=== PATIENT | male | born 1945 | race Caucasian/White ===

== ENCOUNTER 2017-06-21 06:31 | Observation (INO) | payer OTHER ==
[~2017-06-21] VITALS: Ht 172.7 cm; Wt 87.9 kg
[~2017-06-21 06:31] MED LIST: ASCO10003 PO; ASPI81TA28 PO; CHOL100010 PO; GEMF600T3 PO; GLC500 PO; LISI-461 PO; METO50TA16 PO; OMEG10007 PO; PRAV20TA PO
[2017-06-21 07:17] VITALS: BP 143/58; PULSE 58; TEMP 36.8; O2SAT 98; BMI 29.0
[2017-06-21] MEDS ORDERED: CLOTCRE33 TOP (07:33)
[2017-06-21] MEDS ORDERED: EPP3/2 IM (07:33)
[2017-06-21] MEDS ORDERED: TRMCR130WC (07:33)
[2017-06-21] MEDS ORDERED: CHOL1TAB12 PO (07:33)
[2017-06-21] MEDS ORDERED: NTRGSL/4 UT (07:33)
[2017-06-21] MEDS ORDERED: CYAN10005 PO (07:33)
[2017-06-21] MEDS ORDERED: HEPARIN SOD (PORCINE) 1000 UNIT/ML 10 ML VIAL ONE (07:40)
[2017-06-21] MEDS ORDERED: NiCARDipine HCL INJ 2.5 MG/ML 10 ML AMP ONE (07:40)
[2017-06-21] MEDS ORDERED: NITROGLYCERIN/D5W 100MCG/ML 20ML SYR ONE (07:41)
[2017-06-21] MEDS ORDERED: FENTANYL CITRATE INJ 50 MCG/1 ML 2 ML VIAL ONE (07:41)
[2017-06-21] MEDS ORDERED: MIDAZOLAM HCL 1 MG/ML 2ML VIAL ONE ×2 (07:41→09:14)
--- NOTE | 2017-06-21 08:13 | History & Physical Bridge Note ---
H&P Re-Evaluation Bridge Note: I have examined the patient, reviewed the History & Physical and in the interval since the performance of the History & Physical I have noted the following changes of clinical significance: No changes noted
--- NOTE | 2017-06-21 08:14 | Procedure Note ---
Pre-Mod Sedation Assessment General Date of Moderate Sedation: Jun 21, 2017. Vital Signs: Vital Signs Past 12 Hours Date Time Temp Pulse Resp B/P (MAP) Pulse Ox O2 Delivery O2 Flow Rate FiO2 06/21/17 07:17 36.8 58 16 143/58 98 Room Air Review Cardiovascular: regular rate, rhythm, no JVD, no murmur Abdomen: normal bowel sounds Lungs: + wheezing Pre-Sedation Airway Assessment Oral Cavity: WNL Short Thick Neck: No Hx of Sleep Apnea: No Smoking Status: Current Every Day Smoker Mallampati Classification: Class III ASA Classification: Class III Procedure Planning Contraindications-for Mod Sed: None Yes Notes The planned sedation has been discussed with the patient and consent obtained. I have identified the patient, determined the appropriateness of sedation and have assessed the patient immediately prior to the procedure. All medicine(s) and interventions are by my order.
[2017-06-21] MEDS ORDERED: EPTIFIBATIDE 0.75 MG/ML 75MG VIAL IV ONE (09:21)
[2017-06-21] MEDS ORDERED: EPTIFIBATIDE INJ 75 MG PREMIXED IV SCH (09:21)
[2017-06-21] MEDS ORDERED: EPTIFIBATIDE 2 MG/ML 10 ML VIAL IV ONE (09:21)
--- NOTE | 2017-06-21 09:44 | Cardiac Catheterization ---
Procedure Note Procedure Date Jun 21, 2017. Pre-Procedure Diagnosis Angina, Positive Stress Test AUC Score 8 Post-Procedure Diagnosis Severe CAD Procedure(s) Performed Coronary Angiography, Left Heart Cath Abrasive Grinder Dr. Robert Partnership Development Manager(s) Freddy PRINTING SERVICES COORDINATOR Estimated Blood Loss 5cc Medication(s) Fentanyl, Heparin, Nicardipine, Nitroglycerin, Versed, Lidocaine 1% Summary of Findings 80% proximal Ramus 100% proximal RCA PHOTOGRAPHER SCIENTIFIC Hemodynamics Rest Ao: 110/51/75 Final Ao: 127/52/81 LV: 109/2/8 Recommendations PCI without planned CABG Specimens None Radiation Exposure (mGy) 883 Contrast (mls) 70 Anesthesia Moderate sedation. Start 0847. End 0912. Sedation monitor: Breanna Mtz RN Procedural Complication(s) None Disposition Patient remained in laboratory tester for PCI to Ramus ACC Data Cardiac Status Clinical evaluation leading to the procedure CAD Presntation: Positive Stress Test Anginal Classification: CCS II Heart Failure: No Cardiogenic Shock w/in 24Hrs: No Cardiac Arrest w/in 24Hrs: No Imaging studies past 6 months: Yes Stress studies past 6 months: Yes Stress Testing w/SPECT MPI: Yes - Positive, Risk/Extent of Ischemia (High) Coronary Anatomy Dominant: Right Left Main (% Stenosis): Normal LAD (% Stenosis): Proximal (10%), Mid (20%), Distal (10%) D1 (% Stenosis): Ostial (20%) D2 (% Stenosis): Normal Circumflex (% Stenosis): Proximal (10%), Distal (gives rise to Left to right collateral) OM1 (% Stenosis): Proximal (10%), Mid (20%), Distal (10%) RCA (% Stenosis): Proximal (100%) R PL1 (% Stenosis): Ostial (mild luminal irregularities, (10%). Fills via left to right collaterals.) Ramus (% Stenosis): Mid (10%), Distal (10%), Proximal (80%) Diagnostic Status: Elective Closure Device Percutaneous Entry Location: Radial Closure Device: Radial Band Recommendations: PCI without planned CABG Intraprocedure Events Significant Dissection: No Perforation: No
[2017-06-21] MEDS ORDERED: CLOPIDOGREL BISULFATE 300 MG TAB PO ONE (10:11)
--- NOTE | 2017-06-21 10:19 | Procedure Note ---
Post-Mod Sedation Assessment General Date of Moderate Sedation Jun 21, 2017. Vital Signs: Vital Signs Past 12 Hours Date Time Temp Pulse Resp B/P (MAP) Pulse Ox O2 Delivery O2 Flow Rate FiO2 06/21/17 10:03 56 16 131/72 (91) 95 Room Air 06/21/17 07:17 36.8 58 16 143/58 98 Room Air Review - Discharge Criteria Vital Signs Stable: Yes Alert/Oriented/Conversant: Yes Returned to Baseline Mental St: Yes Nausea Absent/Minimal: Yes Pain/Discomfort/Absent/Minimal: Yes Normal/Baseline Respirations: Yes Active Bleeding?: No Pt Received D/C Instructions: N/A Prescriptions Given: None Specific Proced. D/C Criteria Distal Pulses Present (Cardiac: Yes Groin site assessed-Card Cath: N/A Voided Prior To Discharge: N/A Discharged Patients Adult Escort/Transportation: N/A
--- NOTE | 2017-06-21 10:34 | Cardiac Catheterization ---
Procedure Note Procedure Date Jun 21, 2017. Pre-Procedure Diagnosis Positive Stress Test, CAD AUC Score 8 for PCI Post-Procedure Diagnosis Successful PCI Procedure(s) Performed Coronary Angiography, PTCA, Drug Eluting Stent Ditch Digger Dr. Gordon Public Health Director(s) ERWIN Salinas Estimated Blood Loss 20 ml Medication(s) Clopidogrel (600 mg PO post PCI), Heparin, Integrilin, Nicardipine (intra arterial and intracoronary) Summary of Findings Clinical indications: Severe proximal ramus stenosis. Positive stress echocardiogram. Catheterization site: 6 [place] slender glide sheath right radial artery which had been inserted at time of diagnostic procedure. Equipment: A 6 [place] EBU 3.75 guide catheter, a Bowman guidewire, Duran Trek 2.5 x 8 mm balloon dilatation catheter, Medtronic Resolute [place] 3 x 12 mm drug- eluting stent. Interventional protocol: Following the administration of intravenous heparin and Integrilin with documentation of a therapeutic ACT, PTCA was performed to the proximal ramus stenosis with the Trek balloon. Two balloon inflations to maximum pressure of 8 atmospheres and maximum duration of 20 seconds. The stent was then deployed in the proximal ramus at a pressure of 9 atmospheres for duration of 45 seconds. Follow-up angiography was then performed from orthogonal projections with the guidewire in place and guidewire withdrawn. The patient was hemodynamically stable throughout the procedure. At the completion of procedure he had no cardiac, coronary, or vascular complaints. Findings: Guiding angiography revealed an 80% eccentric proximal ramus stenosis. JESSICA 3 flow in the ramus. Following PCI the residual stenosis at the stent site was 0%. No evidence of dissection, thrombus, perforation, or distal embolic event. JESSICA 3 flow in ramus post PCI. Hemostasis: Terumo TR band. Complications: None. Plan: The patient will be admitted to the telemetry unit for observation overnight. He will remain on intravenous Integrilin for 6 more hours. He was given a loading dose of oral clopidogrel post PCI. He should remain on dual antiplatelet therapy for ideally 1 year post PCI. Aspirin therapy indefinitely. Will remain on statin, beta-abida, and KISHA-inhibitor therapy. Post Integrilin CBC. Post PCI electrocardiogram. Continue follow-up in the [facility] cardiology clinic. Conclusion: Severe proximal ramus stenosis. Successful intervention to the ramus stenosis with deployment of 3 x 12 mm drug-eluting stent. Hemodynamics Rest Ao: 115/43/72 mm Hg Final Ao: 139/57/89 mm Hg LV: NA Recommendations PCI without planned CABG Specimens None Radiation Exposure (mGy) 2158 Contrast (mls) 165 ml Visipaque Drains 165 Procedural Complication(s) None Disposition General Manager In Training Holding/Recovery ACC Data Cardiac Status Clinical evaluation leading to the procedure CAD Presntation: Positive Stress Test Anginal Classification: CCS II Heart Failure: No Cardiogenic Shock w/in 24Hrs: No Cardiac Arrest w/in 24Hrs: No Imaging studies past 6 months: Yes Stress studies past 6 months: Yes Standard Exercise Stress Test: No Stress Echocardiogram: Yes - Positive, Risk/Extent of Ischemia (High) Stress Testing w/SPECT MPI: No Cardiac CTA: No Coronary Anatomy Dominant: Right (Please see Dr. Robert's diagnostic cardiac catheterization report) Left Ventricular Angiography EF (%): NA Diagnostic Status: Elective Closure Device Percutaneous Entry Location: Radial Closure Device: Radial Band Recommendations: PCI without planned CABG PCI Indication: + Stress Test Lesion Segment Name: Proximal Ramus Culprit Artery: Yes Stenosis Prior to Rx (%): 80 Chronic Total Occlusion: No IVUS: No FFR: No Ratio: less than or equal to 0.75% Lesion Complexity: Non-High/Non-C Lesion Length (mm): 7 Thrombus Present: No Bifurcation Lesion: No Guidewire Across Lesion: Yes Guidewire: Stenosis Post-Procedure (%): 0 Post-Procedure JESSICA Flow: 3 Device(s) Deployed: Yes Type of Device(s): Medtronic Resolute LU[place] ALBERTO 3 X 12 mm DULCE Intraprocedure Events Significant Dissection: No Perforation: No
[2017-06-21] MEDS ORDERED: ATROPINE SULFATE 0.1 MG/ML 5ML SYR IV PRN (10:45)
[2017-06-21] MEDS ORDERED: NITROGLYCERIN 0.4 MG SL PER TAB CHARGE UT PRN (10:45)
[2017-06-21] MEDS ORDERED: ONDANSETRON INJ 2 MG/ML 2 ML VIAL IV PRN (10:45)
[2017-06-21] MEDS ORDERED: POLYETHYLENE (MIRALAX) 17 GM PACK PO PRN (10:45)
[2017-06-21] MEDS ORDERED: CLOTRIMAZOLE/BETAMETHASONE CR 15 GM TUBE EXT PRN (10:45)
[2017-06-21] MEDS ORDERED: MAGNESIUM HYDROXIDE SUSP 30 ML UDC PO PRN (10:45)
[2017-06-21] MEDS ORDERED: ACETAMINOPHEN 325 MG TAB PO PRN (10:45)
[2017-06-21] MEDS ORDERED: EPTIFIBATIDE BOLUS / DRIP IV ONE (10:45)
[2017-06-21] MEDS ORDERED: ALUMINUM/MAGNESIUM/SIMETH (MAALOX MAX) 30 ML UDC PO PRN (10:45)
[2017-06-21 11:00] VITALS: BP 149/73; PULSE 52; TEMP 37; O2SAT 95; Ht 172.7 cm; Wt 87.9 kg
[2017-06-21] MEDS: SODIUM CHLORIDE 0.9% 1000ML 1,000 ML IV SCH (11:28)
[2017-06-21] MEDS ORDERED: NURSING DECISION MEDICATION ORDER SCH (11:30)
[2017-06-21 11:35] LABS: BASO % 0.3 %; BASO ABS # 0.03 K/uL (0-0.2); EOS % 2.8 %; IG% 0.5 %; LYMPH % 33.1 %; LYMPH ABS # 3.49 K/uL (1.2-3.4); MEAN CELL VOLUME 95.2 fL (80-100); MEAN CORPUSCULAR HEMOGLOBIN 32.5 pg (25-34); MONO % 5.2 %; NEUT % 58.1 %; PLATELET COUNT 201 K/uL (130-400); RED BLOOD COUNT 4.62 M/uL (4.7-6.1); WHITE BLOOD COUNT 10.54 K/uL (4.8-10.8)
[2017-06-21 11:39] LABS: COMPLETE YES; MEAN CORPUSCULAR HGB CONC 34.1 g/dl (32-36)
[2017-06-21] MEDS ORDERED: INFLUENZA VACCINE HIGH DOSE 65+ 0.5 ML SYR IM. ONE (11:45)
[2017-06-21] MEDS ORDERED: INFLUENZA ADMINISTRATION CHARGE ONE (11:45)
[2017-06-21] MEDS ORDERED: IV FLUIDS COMPLETED PRN (12:00)
[2017-06-21 12:07] LABS: CREATININE 0.89 mg/dl (0.60-1.40)
[2017-06-21] MEDS ORDERED: Integrelin infusion --> STOP ORDER ONE (16:00)
[2017-06-21 16:17] VITALS: BP 132/64; PULSE 55; TEMP 36.8; O2SAT 95
[2017-06-21 20:14] VITALS: BP 162/68; PULSE 61; TEMP 37.1; O2SAT 94
[2017-06-21] MEDS: GEMFIBROZIL 600 MG TAB PO SCH (20:14)
[2017-06-21] MEDS: METOPROLOL TARTRATE 50 MG TAB PO SCH ×2 (21:00→21:30)
[2017-06-22] MEDS: SODIUM CHLORIDE 0.9% 1000ML 1,000 ML IV SCH ×2 (00:08→08:05)
[2017-06-22 00:38] VITALS: BP 136/62; PULSE 65; TEMP 36.8; O2SAT 92
[2017-06-22 04:41] VITALS: BP 146/66; PULSE 70; TEMP 36.5; O2SAT 96
[2017-06-22 06:18] LABS: BASO % 0.3 %; BASO ABS # 0.03 K/uL (0-0.2); COMPLETE YES; EOS % 2.1 %; HEMATOCRIT 41.8 % (42-52); IG% 0.3 %; LYMPH % 17.5 %; LYMPH ABS # 1.83 K/uL (1.2-3.4); MEAN CORPUSCULAR HEMOGLOBIN 32.5 pg (25-34); MEAN CORPUSCULAR HGB CONC 34.2 g/dl (32-36); MEAN PLATELET VOLUME 12.2 fL (7.4-10.4); MONO % 6.6 %; NEUT % 73.2 %; PLATELET COUNT 176 K/uL (130-400); WHITE BLOOD COUNT 10.43 K/uL (4.8-10.8)
[2017-06-22 06:49] LABS: BUN/CREATININE RATIO 15.1 (10-20); CALCIUM 8.5 mg/dl (8.5-10.1); CREATININE 0.88 mg/dl (0.60-1.40)
[2017-06-22 07:45] VITALS: BP 131/58; PULSE 57; TEMP 36.9; O2SAT 93
[2017-06-22 08:00] VITALS: PULSE 66
[2017-06-22] MEDS: GEMFIBROZIL 600 MG TAB PO SCH (08:06)
[2017-06-22] MEDS: METOPROLOL TARTRATE 50 MG TAB PO SCH (08:07)
[2017-06-22] MEDS ORDERED: LISINOPRIL 10 MG TAB PO SCH (09:00)
[2017-06-22] MEDS ORDERED: CYANOCOBALAMIN 500 MCG TAB (VIT B-12) PO SCH (09:00)
[2017-06-22] MEDS ORDERED: ASPIRIN 81 MG ECTAB PO SCH ×2 (09:00)
[2017-06-22] MEDS ORDERED: PRAVASTATIN SOD 20 MG TAB PO SCH (09:00)
[2017-06-22] MEDS ORDERED: CLOP1TAB5 PO (10:15)
--- NOTE | 2017-06-22 10:19 | Discharge Instructions ---
Discharge Instructions Procedure Procedure Date: Jun 22, 2017. Reason for Visit: Coronary Stent, Stented Coronary Artery. Discharge Discharge Date: Jun 22, 2017. Discharge Diagnosis: CAD status post drug eluting stent implantation to Ramus. SNOW FENCE ERECTOR RCA Last Recorded Wt (Kilograms): 87.900 Anesthesia Post Anesthesia Instructions: If you have had General Anesthesia or IV Sedation: * Do not drive today. * Resume driving when surgeon permits. * Do not make important decisions or sign legal documents today. * Call surgeon for: 1. Temperature elevations greater than 101 degrees F. 2. Uncontrollable pain. 3. Excessive bleeding. 4. Persistent nausea and vomiting. 5. Medication intolerance (nausea, vomiting or rash). * For nausea and vomiting use only clear liquids such as: tea, soda, bouillon until nausea subsides, then gradually increase diet as tolerated. * If you have any concerns or questions, call your surgeon's office. If physician is unavailable and it is an emergency, call 911 or go to the nearest emergency room. 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 * Do not drive or operate any motorized equipment for the next three days. 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 * Do not lift anything heavier than 10 pounds for the next three days. * Do not engage in vigorous exercise or any sports for the next five days. * You may shower the day after your procedure, but do not immerse the area for three days. Cleanse the site gently with soap and water. SPECIAL CARE INSTRUCTIONS: * You may replace the pressure dressing or band-aid the morning after the procedure. * After your procedure, it is normal to have a small bruise or small lump at the site. Examine your site daily for any change in the bruise or lump, redness, swelling, drainage or numbness. Notify your doctor if any change. BLEEDING: * If there is a small amount of bleeding at the site, lie down and apply firm pressure with a clean cloth for ten minutes. When the bleeding stops, lie quietly keeping the procedure limb straight for six hours. Notify your doctor as soon as possible. * If the bleeding does not stop after ten minutes or if there is a large amount of bleeding or spurting, call 911 immediately. Continue to lie down and hold firm pressure until help arrives. SKIN IRRITATION: * You may experience some redness and/or swelling in the area where radiation was administered. If any skin irritation occurs, please contact your family physician. FOLLOW UP VISIT: Keep any scheduled doctor appointments. Follow Up Follow-up with: Dr. Carroll as scheduled Kenny Chavez Recommendations: Call your doctor if: * Temperature above 101 degrees * Pain not relieved by pain medicine ordered * There is increased drainage or redness from any incision * You have any unanswered questions or concerns. Your Doctors Instructions noted above were prepared by provider James Robert. Patient Signature Section: Patient Instructions Signature Page Wilfred Farr Patient (or Guardian) Signature/Date: I have read and understand the instructions given to me by my caregivers. Caregiver/RN/Doctor Signature/Date: The above-named patient and/or guardian has received patient instructions on this date. + Original Patient Signature Page (only) stays with chart. Please make copy for patient.
--- NOTE | 2017-06-22 10:32 | Cardiology Follow-Up ---
Subjective General Date of Service: Jun 22, 2017. Pt evaluation today including: conversation w/ patient, physical exam, chart review, lab review, review of studies, review of inpatient medication list History of Present Illness The patient is a 71 year old male seen in follow-up. Feels well from a cardiovascular standpoint. He has not received his a.m. dose of Plavix. Denies chest pain or shortness of breath. No wrist discomfort, hematoma, or ecchymosis. No dysrhythmias on telemetry. Allergies Coded Allergies: BEE STING (Verified Allergy, Severe, ANAPHYLAXIS, 01/09/16) Cephalexin (Verified Allergy, Unknown, UNKNOWN, 01/09/16) Social History Smoking Status: Current Every Day Smoker Hx Alcohol Use - Type And Amou: No Hx Substance Use - Type And Am: No Problem List Medical Problems: (1) Acq Spondylolisthesis Status: Chronic (2) Coronary Atherosclerosis Of [place] Coronary Vessel Status: Chronic (3) Diab Frances Wo Compl, Type Ii Or Unspec Type, Not Uncntrld Status: Chronic (4) Hypertension Nos Status: Chronic (5) Old Myocardial Infarct Status: Chronic (6) Pure Hypercholesterolem Status: Chronic (7) Spinal Stenosis, Lumbar Reg, W/Out Neurogenic Claudication Status: Chronic Review of Systems Respiratory: No cough, No sputum, No wheezing, No shortness of breath, No dyspnea on exertion, No dyspnea at rest, No hemoptysis Cardiac: No chest pain, No orthopnea, No PND, No edema, No claudication, No palpitations Physical Exam Vital Signs Last Vital Signs Documentation Date Time Temp Pulse Resp B/P (MAP) Pulse Ox O2 Delivery O2 Flow Rate FiO2 06/22/17 07:45 36.9 57 18 131/58 (82) 93 Room Air Physical Exam Constitutional: General Apperance: heathly-appearing, well-nourished, well-developed Level of Distress: NAD Ambulation: ambulating normally Head: normocephalic, atraumatic ENMT: normal ENT inspection Lungs: Auscultation: breath sounds normal, no wheezing, no rales/crackles, no rhonchi Cardiovascular: Heart Auscultation: RRR, normal S1, normal S2, no murmurs Peripheral Pulses: Radial Pulse: normal on the left, normal on the right Abdomen: Bowel Sounds: normal Inspection & Palpation: soft, non-distended, no tenderness, guarding & rebound Extremities: no cyanosis, no edema, no clubbing, no ulcers Neurologic: Gait & Station: pertinent finding (no focal motor deficit.) Cranial Nerves: grossly intact Assessment and Plan Assessment and Plan Imp: 1. 71-year-old male history of prior inferior infarct presents for cardiac catheterization as an outpatient 06/21 due to chest discomfort and abnormal nuclear stress testing suggesting inferior infarct with yan-infarct ischemia. Catheterization demonstrated severe proximal ramus intermedius stenosis and chronic total occlusion of the right coronary artery. A drug-eluting stent was implanted without complication. 2. H/o PAF - previous declined chronic anticoagulation - No recurrent dysrhythmia on telemetry 3. Active tobacco abuse 4. Mixed dyslipidemia Plan/Recommendations: Discussed importance of continuing dual antiplatelet therapy for a minimum of 1 year uninterrupted post DULCE implantation. Post catheterization activity restrictions reviewed. 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 He voiced understanding and agreement. Other cardiovascular medications will be continued as previously ordered. Smoking cessation advised. Patient will be discharged home today after he receives his a.m. dose of Plavix. Laboratory Results Last 24 Hours Test 06/21/17 11:20 06/21/17 11:25 06/21/17 11:34 06/21/17 16:29 White Blood Count 10.54 K/uL Red Blood Count 4.62 M/uL Hemoglobin 15.0 g/dL Hematocrit 44.0 % Mean Corpuscular Volume 95.2 fL Mean Corpuscular Hemoglobin 32.5 pg Mean Corpuscular Hemoglobin Concent 34.1 g/dl Platelet Count 201 K/uL Mean Platelet Volume 12.0 fL Neutrophils (%) (Auto) 58.1 % Lymphocytes (%) (Auto) 33.1 % Monocytes (%) (Auto) 5.2 % Eosinophils (%) (Auto) 2.8 % Basophils (%) (Auto) 0.3 % Neutrophils # (Auto) 6.13 K/uL Lymphocytes # (Auto) 3.49 K/uL Monocytes # (Auto) 0.55 K/uL Eosinophils # (Auto) 0.29 K/uL Basophils # (Auto) 0.03 K/uL RDW Standard Deviation 46.8 fL RDW Coefficient of Variation 13.6 % Immature Granulocyte % (Auto) 0.5 % Immature Granulocyte # (Auto) 0.05 K/uL Bedside Glucose 95 mg/dl 93 mg/dl Creatinine 0.89 mg/dl Est Creatinine Clear Calc Drug Dose 83.3 ml/min Estimated GFR () 100.4 Estimated GFR (Non- 86.6 Test 06/22/17 05:36 06/22/17 06:55 White Blood Count 10.43 K/uL Red Blood Count 4.40 M/uL Hemoglobin 14.3 g/dL Hematocrit 41.8 % Mean Corpuscular Volume 95.0 fL Mean Corpuscular Hemoglobin 32.5 pg Mean Corpuscular Hemoglobin Concent 34.2 g/dl Platelet Count 176 K/uL Mean Platelet Volume 12.2 fL Neutrophils (%) (Auto) 73.2 % Lymphocytes (%) (Auto) 17.5 % Monocytes (%) (Auto) 6.6 % Eosinophils (%) (Auto) 2.1 % Basophils (%) (Auto) 0.3 % Neutrophils # (Auto) 7.63 K/uL Lymphocytes # (Auto) 1.83 K/uL Monocytes # (Auto) 0.69 K/uL Eosinophils # (Auto) 0.22 K/uL Basophils # (Auto) 0.03 K/uL RDW Standard Deviation 46.1 fL RDW Coefficient of Variation 13.4 % Immature Granulocyte % (Auto) 0.3 % Immature Granulocyte # (Auto) 0.03 K/uL Sodium Level 140 mmol/L Potassium Level 4.0 mmol/L Chloride Level 110 mmol/L Carbon Dioxide Level 25 mmol/L Anion Gap 5.0 mmol/L Blood Urea Nitrogen 13 mg/dl Creatinine 0.88 mg/dl Est Creatinine Clear Calc Drug Dose 84.2 ml/min Estimated GFR () 100.9 Estimated GFR (Non- 87.0 BUN/Creatinine Ratio 15.1 Random Glucose 98 mg/dl Calcium Level 8.5 mg/dl Bedside Glucose 117 mg/dl
[2017-06-22 10:33] VITALS: BP 131/58; PULSE 64; TEMP 36.9; O2SAT 93
[2017-06-22] MEDS ORDERED: CLOPIDOGREL BISULFATE 75 MG TAB PO ONE (11:00)
[2017-06-23] MEDS ORDERED: CLOPIDOGREL BISULFATE 75 MG TAB PO SCH (09:00)
--- NOTE | 2017-06-23 14:18 | DISCHARGE SUMMARY ---
ADMISSION DIAGNOSES: 1. Abnormal nuclear stress test. 2. History of coronary artery disease and prior inferior infarct. 3. Dyslipidemia. 4. Paroxysmal atrial fibrillation. 5. Tobacco abuse. DISCHARGE DIAGNOSES: 1. Coronary artery disease status post drug eluting stent implantation to the ramus intermedius, chronic total occlusion of right coronary artery. 2. Dyslipidemia. 3. Paroxysmal atrial fibrillation. 4. Tobacco abuse. ADMISSION MEDICATIONS: 1. Lisinopril 10 mg daily. 2. Lotrisone topically daily. 3. Pravachol 40 mg daily. 4. Lopressor 50 mg twice daily. 5. Metformin 500 mg twice daily. 6. Gemfibrozil 600 mg twice daily. 7. Aspirin 81 mg daily. DISCHARGE MEDICATIONS: 1. Plavix 75 mg daily. 2. Aspirin 81 mg daily. 3. Lisinopril 10 mg daily. 4. Pravastatin 40 mg daily. 5. Gemfibrozil 600 mg twice daily. 6. Metoprolol tartrate 50 mg twice daily. 7. Metformin 500 mg twice daily. HOSPITAL COURSE: The patient was admitted for observation status 06/21/2017. The patient has a outpatient nuclear stress test which was positive for inducible ischemia. Cardiac catheterization demonstrated a chronic total occlusion of the right coronary artery as well as a severe proximal ramus intermediate stenosis. A drug eluting stent was implanted by Dr. Gordon 06/21/2017 without complications. The patient was observed overnight. There were no dysrhythmias. He was tolerating medications. The patient discharged to home in stable condition. CONSULTS DURING ADMISSION: Dr. Gordon interventional cardiology. Please note this is a discharge summary and may contain errors and omissions. Please refer to the full body of the medical record concerning details of hospitalization.
== END 2017-06-22 11:00 | disposition home or self-care (01) ==
LOC: C.CATH 06:31 → ENRESERV 10:25 → C.2E 10:44
PROVIDERS: ADMIT Internal Medicine Cardiovascular Disease; ATTEND Internal Medicine Cardiovascular Disease
DX: I20.9 Angina pectoris, unspecified (principal); I25.10 Atherosclerotic heart disease of native coronary artery without angina pectoris
CPT/HCPCS: 93458; C9600

== ENCOUNTER 2020-04-22 16:10 | Inpatient (IN) ==
[2020-04-22] MEDS ORDERED: SODIUM CHLORIDE 0.9% 1000ML 1,000 ML IV ONE ×2 (16:33→17:18)
[2020-04-22] MEDS ORDERED: ONDANSETRON INJ 2 MG/ML 2 ML VIAL IV STA (16:35)
--- NOTE | 2020-04-22 16:35 | Emergency Department Note ---
ED Visit Note This patient was seen in concert with Dr. Matson and we discussed and agreed upon the history, physical, assessment and plan. See attending's note for details. Resident Activity Tracking Resident Involvement: Resident Care Provided Care Provided: Adult ED
[2020-04-22] MEDS ORDERED: KETOROLAC TROMETHAMINE 15 MG/ML VIAL IV ONE (16:38)
--- NOTE | 2020-04-22 16:45 | Emergency Department Note ---
Impression & Plan Renal colic, Bilateral ureteral calculi, Hydronephrosis, Acute UTI, Leukocytosis ED Provider Note NAME: BEULAH LEOS AGE: 74 SEX: M : 1945 ARRIVES VIA: Walk-In INFORMANT: Patient, ED PROVIDER(S): Yohan Matson DO CHIEF COMPLAINT: Right flank pain HPI: Patient is a 74-year-old male who presents here for right flank pain. This started around 11 AM today. He notes it feels like his previous kidney stone which he had recently. The pain has caused him nausea and 2 episodes of vomiting. Pain is a 3 out of 10. No other exacerbating or remitting factors. He has not taken anything for the pain. He denies any previous belly surgeries but does have a history of bladder cancer. No fevers. He notes he feels like he has to urinate but cannot at this time. Denies any chest pain shortness of breath. ROS: See above HPI for pertinent positives & negatives. A total of 10 systems reviewed and were otherwise negative. PAST MEDICAL HISTORY:See Below PAST SURGICAL HISTORY:See Below FAMILY HISTORY:See Below SOCIAL HISTORY:See Below HOME MEDICATIONS:See Below ALLERGIES:See Below VITALS:See Below PHYSICAL EXAMINATION: GENERAL: Sitting up in bed, alert, well appearing, well nourished, mild distress EYE EXAM: normal conjunctiva. OROPHARYNX: no exudate, no erythema, lips, buccal mucosa, and tongue normal and mucous membranes are moist NECK: supple, no nuchal rigidity, no adenopathy, non-tender LUNGS: Clear to auscultation. Normal chest wall mechanics HEART: no murmurs, S1 normal and S2 normal ABDOMEN: abdomen soft, non-tender, normo-active bowel sounds, no masses, no rebound or guarding. BACK: Back is symmetrical on inspection and there is no deformity, no midline tenderness, no CVA tenderness. SKIN: no rashes and no bruising UPPER EXTREMITIES: upper extremities are grossly normal. LOWER EXTREMITIES: No pitting edema. NEURO EXAM: Normal sensorium, cranial nerves II-XII grossly intact, normal speech, no gross weakness of arms, no gross weakness of legs. MEDICAL DECISION MAKING: Patient is a 74-year-old male who presents the ER for right flank pain. IV was established blood work is obtained. Labs show leukocytosis of 16,000. No significant anemia. BMP with creatinine 1.5 up from a baseline of 0.8. LFTs bilirubin was unremarkable. Lipase was normal. UA with nitrates, leukocytes and some blood in the urine. It was contaminated with several epithelial cells. Patient was given IV antibiotics. He was given a small dose of IV Toradol initially prior to the result of his creatinine which completely resolved his pain. He was given IV fluids. He was updated bedside. Discussed with Dr. Ronni Rubio in regards to the affected stone. As the patient is not septic we will hold on stenting at this time. Discussed with hospitalist for admission and further work-up. Triage Nursing notes reviewed. Prior medical records reviewed Vital Signs: reviewed and remarkable for no significant abnormalities Differential diagnosis: Differential diagnoses includes but is not limited to gastritis, peptic ulcer disease, GERD, gallbladder disease, pancreatitis, small bowel obstruction, acute coronary syndrome, pericarditis, ischemic bowel, irritable bowel disease, irritable bowel syndrome, appendicitis, diverticulitis, malignancy, hernia, urinary tract infection, torsion, perforation, trauma, infectious. ER treatment provided: See below Diagnostics interpreted by me: ECG: none Cardiac Monitoring: An order was placed for continuous cardiac monitoring. The monitor shows a rate of 81 with sinus rhythm. Laboratory studies: As stated above and show below. Imaging studies: CT abdomen pelvis shows bilateral renal stones with hydronephrosis. Consultation(s): none ED COURSE: Procedures: none Critical Care: None Past Med/Surg History Social History Smoking Status: Current every day smoker Preferred Language: Liberian Feels Safe at Home: Yes Allergies Allergies Allergy/AdvReac Type Severity Reaction Status Date / Time bee venom protein (honey bee) Allergy Severe ANAPHYLAXIS Verified 04/22/20 17:13 cephalexin [From Keflex] Allergy Unknown CAN'T Verified 04/22/20 17:13 MD CHIDI ADDED TO LIST Home Meds Home Medications Medication Instructions Recorded Confirmed aspirin [Aspir-81] 81 mg PO QAM 04/22/20 04/22/20 atorvastatin 80 mg PO HS 04/22/20 04/22/20 cholecalciferol (vitamin D3) 25 mcg PO QAM 04/22/20 04/22/20 [Vitamin D3] cyanocobalamin (vitamin B-12) 1,000 mcg PO QAM 04/22/20 04/22/20 [Vitamin B-12] epinephrine 0.3 mg IM DIRECTED PRN 04/22/20 04/22/20 garlic 0 mg PO QAM 04/22/20 04/22/20 isosorbide mononitrate 30 mg PO QAM 04/22/20 04/22/20 losartan 100 mg PO HS 04/22/20 04/22/20 metformin 500 mg PO BIDM 04/22/20 04/22/20 metoprolol tartrate 50 mg PO BID 04/22/20 04/22/20 nitroglycerin [Nitrostat] 0.4 mg SUBLINGUAL DIRECTED PRN 04/22/20 04/22/20 tamsulosin 0.4 mg PO Q OTHER DAY 04/22/20 04/22/20 Results & Data (ED) Vital Signs Vital Signs - 24 hr 04/22/20 16:16 04/22/20 16:24 04/22/20 18:17 Temperature 36.8 C Temperature Source Oral Pulse Rate 83 Pulse Rate [Left Finger] 81 Pulse Rhythm Regular Respiratory Rate 17 18 Respiratory Effort / Characteristics Non-Labored Spontaneous Respiratory Depth Normal Respiratory Pattern Regular Blood Pressure 184/84 H Blood Pressure [Left Arm] 170/76 H Blood Pressure Mean 117 Blood Pressure Mean [Left Arm] 107 Blood Pressure Position Sitting Pulse Oximetry 96 96 Oxygen Delivery Method Room Air Room Air Room Air Sepsis Recent Fever Within 48 Hours No Sepsis New/Unexplained Change in Mental Status No Sepsis Action Taken by Nursing No Action Required Laboratory Data Result diagrams: 04/22/20 16:55 04/22/20 16:55 Lab Results 04/22/20 04/22/20 04/22/20 Range/Units 16:45 16:55 16:55 WBC 16.77 H (4.8-10.8) K/uL RBC 4.76 (4.7-6.1) M/uL Hgb 15.7 (14.0-18.0) g/dL Hct 45.6 (42-52) % MCV 95.8 (80-100) fL MCH 33.0 (25-34) pg MCHC 34.4 (32-36) g/dL RDW Std Deviation 48.4 H (36.4-46.3) fL RDW Coeff of Ele 13.7 (11.5-14.5) % Plt Count 192 (130-400) K/uL MPV 11.9 H (7.4-10.4) fL Immature Gran % (Auto) 0.2 % Neut % (Auto) 84.0 % Lymph % (Auto) 9.5 % [place] % (Auto) 5.7 % Eos % (Auto) 0.4 % Baso % (Auto) 0.2 % Neut # (Auto) 14.08 H (1.4-6.5) K/uL Lymph # (Auto) 1.60 (1.2-3.4) K/uL [place] # (Auto) 0.96 H (0.11-0.59) K/uL Eos # (Auto) 0.06 (0-0.5) K/uL Baso # (Auto) 0.03 (0-0.2) K/uL Immature Gran # (Auto) 0.04 H (0.00-0.02) K/uL Sodium 143 (136-145) mmol/L Potassium 4.2 (3.5-5.1) mmol/L Chloride 111 H (98-107) mmol/L Carbon Dioxide 24 (21-32) mmol/L Anion Gap 8.0 (3-11) BUN 16 (7-18) mg/dl Creatinine 1.57 H (0.6-1.4) mg/dl Est Cr Clr Drug Dosing 46.5 ml/min Est GFR ( Amer) 49.9 Est GFR (Non-Af Amer) 43.1 BUN/Creatinine Ratio 10.3 (10-20) Glucose 151 H (70-99) mg/dl Calcium 9.0 (8.5-10.1) mg/dl Total Bilirubin 0.6 (0.2-1) mg/dl AST 23 (15-37) U/L ALT 40 (12-78) U/L Alkaline Phosphatase 103 (45-117) U/L Total Creatine Kinase 98 (39-308) U/L Total Protein 7.8 (6.4-8.2) gm/dl Albumin 3.9 (3.4-5.0) gm/dl Globulin 3.9 (2.5-4.0) gm/dl Albumin/Globulin Ratio 1.0 (0.9-2) Lipase 169 (73-393) U/L Specimen Hemolysis Urine Color Dark Yellow Urine Appearance Cloudy A (Clear) Urine pH 5.0 (4.5-7.5) Ur Specific [place] 1.020 (1.000-1.030) Urine Protein 2+ H (Negative) Urine Glucose (UA) Negative (Negative) Urine Ketones Trace H (Negative) Urine Blood 3+ H (Negative) Urine Nitrite Positive A (Negative) Urine Bilirubin Negative (Negative) Urine Urobilinogen Negative (Negative) Ur Leukocyte Esterase 2+ H (Negative) Urine WBC (Auto) 1-5 (0-5) /hpf Urine RBC (Auto) >30 H (0-4) /hpf U Hyaline Cast (Auto) 1-5 (0-5) /lpf U Epithel Cells (Auto) 5-10 H (0-5) /lpf Urine Bacteria (Auto) Negative (Negative) Urine Yeast Not Reportable Administered Medications Discontinued Medications Sodium Chloride (Nss 1000ml) 1,000 mls @ 999 mls/hr IV .Q1H1M ONE Stop: 04/22/20 17:33 Last Admin: 04/22/20 17:01 Dose: 999 mls/hr Documented by: [id number] Sodium Chloride (Nss 1000ml) 1,000 mls @ 999 mls/hr IV .Q1H1M ONE Stop: 04/22/20 18:18 Last Admin: 04/22/20 18:11 Dose: 999 mls/hr Documented by: [id number] Piperacillin Sod/Tazobactam Sod (Zosyn) 4.5 gm in 120 mls @ 240 mls/hr IV NOW ONE Stop: 04/22/20 18:22 Last Admin: 04/22/20 18:16 Dose: 240 mls/hr Documented by: [id number] Ketorolac Tromethamine (Toradol) 10 mg IV NOW ONE Stop: 04/22/20 16:39 Last Admin: 04/22/20 17:01 Dose: 10 mg Documented by: [id number] Discharge Plan Visit Data Chief Complaint: Kidney Stone Stated Complaint: KIDNEY STONE ED Provider: Yohan Matson ED Midlevel Provider: Kathrin Tomlin Discharge Problem: Renal colic, Bilateral ureteral calculi, Hydronephrosis, Acute UTI, Leukocytosis Forms Stand Alone Forms: [facility] Prescriptions Prescriptions: No Action metformin 500 mg tablet 500 mg PO BIDM RF: 0 atorvastatin 80 mg tablet 80 mg PO HS RF: 0 isosorbide mononitrate 30 mg tablet extended release 24 hr 30 mg PO QAM RF: 0 cyanocobalamin (vitamin B-12) [Vitamin B-12] 1,000 mcg Tablet 1,000 mcg PO QAM RF: 0 aspirin [Aspir-81] 81 mg Tablet,Delayed Release (Dr/Ec) 81 mg PO QAM RF: 0 garlic 1,000 mg Capsule 0 mg PO QAM RF: 0 tamsulosin 0.4 mg capsule 0.4 mg PO Q OTHER DAY RF: 0 metoprolol tartrate 50 mg tablet 50 mg PO BID RF: 0 nitroglycerin [Nitrostat] 0.4 mg Tablet, Sublingual 0.4 mg sublingual DIRECTED PRN (Reason: Chest Pain) RF: 0 epinephrine 0.3 mg/0.3 mL auto-injector 0.3 mg IM DIRECTED PRN (Reason: Allergic Reaction) RF: 0 losartan 100 mg tablet 100 mg PO HS RF: 0 cholecalciferol (vitamin D3) [Vitamin D3] 25 mcg (1,000 unit) Capsule 25 mcg PO QAM RF: 0 Discharge Problem: Hydronephrosis Qualifiers: Hydronephrosis type: unspecified Qualified Code(s): N13.30 - Unspecified hydronephrosis Leukocytosis Qualifiers: Leukocytosis type: unspecified Qualified Code(s): D72.829 - Elevated white blood cell count, unspecified
[2020-04-22 17:09] LABS: Basophils # (auto) 0.03 K/uL (0-0.2); Basophils % (auto) 0.2 %; Eosinophils # (auto) 0.06 K/uL (0-0.5); Eosinophils % (auto) 0.4 %; Hematocrit (blood only) 45.6 % (42-52); Hemoglobin 15.7 g/dL (14.0-18.0); Immature Granulocytes # (auto) 0.04 K/uL (0.00-0.02); Immature Granulocytes % (auto) 0.2 %; Lymphocytes % (auto) 9.5 %; Mean Corpuscular Hgb Conc 34.4 g/dL (32-36); Mean Corpuscular Volume 95.8 fL (80-100); Mean Platelet Volume 11.9 fL (7.4-10.4); Monocytes # (auto) 0.96 K/uL (0.11-0.59); Monocytes % (auto) 5.7 %; Neutrophils # (auto) 14.08 K/uL (1.4-6.5); Platelet Count 192 K/uL (130-400); RDW Coefficient of Variation 13.7 % (11.5-14.5); RDW Standard Deviation 48.4 fL (36.4-46.3); Red Blood Count 4.76 M/uL (4.7-6.1); White Blood Count 16.77 K/uL (4.8-10.8)
[2020-04-22 17:29] LABS: Albumin Level 3.9 gm/dl (3.4-5.0); BUN Creatinine Ratio 10.3 (10-20); Creatinine Clr Calc Pharmacy 46.5 ml/min; Est GFR (African American) 49.9; Est GFR (Non-African American) 43.1; Potassium 4.2 mmol/L (3.5-5.1)
[2020-04-22 17:32] LABS: Bilirubin,Total 0.6 mg/dl (0.2-1); Globulin 3.9 gm/dl (2.5-4.0); Total Protein 7.8 gm/dl (6.4-8.2)
[2020-04-22 17:34] LABS: Appearance Urine Cloudy (Clear); Bacteria Urine Automated Negative (Negative); Bilirubin Urine Negative (Negative); Blood Urine 3+ (Negative); Color Urine Dark Yellow; Glucose Urine UA Negative (Negative); Ketones Urine Trace (Negative); Leukocyte Esterase Urine 2+ (Negative); Nitrite Urine Positive (Negative); Protein Urine 2+ (Negative); Urobilinogen Urine Negative (Negative)
--- NOTE | 2020-04-22 17:50 | CT Scan Report ---
ABDOMEN AND PELVIS CT WITHOUT CONTRAST CT DOSE: 714.48 mGy.cm HISTORY: Right flank pain. TECHNIQUE: Multiaxial CT images of the abdomen and pelvis were performed without contrast. A dose lo wering technique was utilized adhering to the principles of ALARA. COMPARISON STUDY: Abdomen and pelvis CT 06/10/2011. FINDINGS: Mild emphysema. Mild interlobular septal thickening at the lung bases. This could be chroni c or represent mild congestive change. No pneumoperitoneum. No pneumatosis. 1 cm sclerotic focus with in the left inferior pubic bone. This has slightly increased in size but favors a bone island. L4-S1 posterior decompression fusion with pedicle screws and rods. Trace pericardial effusion, unchanged. T race bilateral pleural effusions. The unenhanced liver, gallbladder, spleen, adrenal glands, and panc reas are within normal limits. No retroperitoneal lymphadenopathy. Mild aneurysmal dilatation of the abdominal aorta measuring up to 3.2 cm in diameter. There are a few bilateral renal hypodense lesions . The majority of these have increased in size compared the prior study. Dominant lesion within the l eft kidney measures 2.8 cm. These are incompletely characterized on this noncontrast study but statis tically represent cysts. There is also a 9 mm exophytic hypodense lesion within the lower pole the ri ght kidney. This is also incompletely characterized but favors a hyperdense cyst. Mild bilateral yan nephric edema. There is mild bilateral hydronephrosis. There are 2 punctate stones within the right k idney. No left renal stones. There is an 8 mm obstructing stone within the proximal to mid right uret er on image 225. Small right posterior bladder diverticulum adjacent to the right ureter insertion. T here is an abnormal insertion of the left ureter seen along the left anterior bladder wall. This coul d be due to postoperative changes from reinsertion. There is a 5 mm obstructing stone at the left ure terovesical junction. This is best seen on image 342. The prostate gland is mildly enlarged. Suboptim al evaluation for bowel pathology due to the lack of intravenous and oral contrast. However, there is no definite bowel wall thickening or obstruction. Extensive colonic diverticulosis. No evidence for diverticulitis. Normal appendix. IMPRESSION: 1. An obstructing 8 mm stone within the proximal to mid right ureter resulting in mild right hydronep hrosis. 2. There is an obstructing 5 mm stone at the left ureterovesical junction resulting in mild left hydr onephrosis. Of note, the left ureter is inserted along the left anterolateral bladder wall. 3. Right-sided nephrolithiasis. 4. Colonic diverticulosis. No evidence for diverticulitis. 5. No definite bowel wall thickening or obstruction. 6. A 3.2 cm infrarenal abdominal aortic aneurysm. 7. Trace pleural effusions and mild interlobular septal thickening at the lung bases. This favors mil d congestive change. 8. Additional findings as described above. ACT 112: Negative or not required by law. Electronically signed by: Alex James M.D. 04/22/2020 5:49 PM
[2020-04-22] MEDS ORDERED: PIPERACILL/TAZOBAC CONSULT ACTIVE PRN (17:53)
[2020-04-22] MEDS ORDERED: PIPERACILLIN/TAZOBACTAM 4.5 GM/120 ML BAG IV ONE (17:53)
[2020-04-22 17:55] LABS: RBC Urine Automated >30 /hpf (0-4)
--- NOTE | 2020-04-22 19:11 | History & Physical Report ---
Date of Service April 22, 2020 Assessment & Plan (1) Bilateral ureteral calculi: Pt is 74 y/o M with PMH CAD, DM II, COPD, paroxysmal atrial fibrillation, HTN, h/o bladder cancer s/p surgery presented to ER with c/o Right flank pain today. Pt states today started with right sided flank pain with associated nausea and vomiting. Denies fever/chills. In ER pt afebrile, P: 83, R: 17, BP: 184/84, 96% on RA. WBC: 16, BUN: 16, Cr: 1.57, UA: +nitrite, 3+ blood, 2+leuk esterase, >30 WBC, 5-10 epithelial, negative bacteria CT ABD/PELVIS: 1. An obstructing 8 mm stone within the proximal to mid right ureter resulting in mild right hydronephrosis. 2. There is an obstructing 5 mm stone at the left ureterovesical junction resulting in mild left hydronephrosis. Of note, the left ureter is inserted along the left anterolateral bladder wall. 3. Right-sided nephrolithiasis. 4. Colonic diverticulosis. No evidence for diverticulitis. 5. No definite bowel wall thickening or obstruction. 6. A 3.2 cm infrarenal abdominal aortic aneurysm. 7. Trace pleural effusions and mild interlobular septal thickening at the lung bases. This favors mild congestive change. -In ER given Toradol 10mg, 2L NSS, Zosyn -Pain much improved in ER. Pt able to urinate -Pending urine culture, blood cultures -Gentle IVF -Zosyn -IV Tylenol, morphine prn pain -strain urine -Continue flomax -NPO midnight -Urology consult, Dr Rubio aware, Plan to do procedure tomorrow morning, sooner if pt would develop fever. Pt may require transfer to tertiary center if difficult to place stent -CBC, BMP in am (2) ANDRES (acute kidney injury): Probable secondary to obstructing stone BUN: 16, Cr: 1.57, GFR: 43. Baseline Cr: 1.1-1.2 Urology consult as above Monitor renal functions Hold losartan, metformin and avoid other nephrotoxic agents when possible (3) HTN (hypertension): -Hold losartan with ANDRES -Continue metoprolol -Dose amlodipine tonight as BP's elevated at180/79 -Monitor BP (4) Diabetes mellitus, type II: A1c: 6.0 in 01/2020 -Hold metformin -Novolog sliding scale per protocol (5) CAD (coronary artery disease): -Continue aspirin, isosorbide, metoprolol, atorvastatin (6) Paroxysmal atrial fibrillation: Reported episode after surgery. Not on anticoagulation Sinus rhythm Continue metoprolol (7) COPD (chronic obstructive pulmonary disease): No signs of exacerbation Continue Spiriva (8) Bladder cancer: S/P surgery DVT Prophylaxis -SCDs Full Code Follows with Dr Terry Dhillon for routine care Pt was seen and care coordinated with Dr Fernandes. See addendum History of Present Illness Chief Complaint: Right flank pain Primary Care Provider: Loretta Dhillon MD Pt is 74 y/o M with PMH CAD, DM II, COPD, paroxysmal atrial fibrillation, HTN, h/o bladder cancer s/p surgery presented to ER with c/o Right flank pain today. Pt states today started with right sided flank pain with associated nausea and vomiting. Denies fever/chills. Pt with s/o left flank pain in 12/2019 and on 12/20/2019 was seen at PCP office and had CT abd/pelvis showing 6mm calculus with mild obstructive uropathy at neoureterovesicular junction. At that time he was given course of Bactrim which he reports he finished however was still having intermittent left flank pain. Pt states left flank pain later resolved. Reports urinating without difficulty and denies dysuria. Didn't notice any hematuria until here in ER today. Denies diaphoresis, diarrhea, constipation, NAQVI, dizziness, syncope, vision changes, neck pain, CP, SOB, orthopnea, palpitations, cough, sore throat, choking, otalgia, rhinorrhea, other abdominal pain, paresthesias, weakness, extremity weakness, extremity edema, rashes. Allergies Allergy/AdvReac Type Severity Reaction Status Date / Time bee venom protein (honey bee) Allergy Severe ANAPHYLAXIS Verified 04/22/20 17:13 cephalexin [From Keflex] Allergy Unknown CAN'T Verified 04/22/20 17:13 MD CHIDI ADDED TO LIST Home Medications Home Medications Medication Instructions Recorded Confirmed Type aspirin [Aspir-81] 81 mg PO QAM 04/22/20 04/22/20 History atorvastatin 80 mg PO HS 04/22/20 04/22/20 History cholecalciferol (vitamin D3) 25 mcg PO QAM 04/22/20 04/22/20 History [Vitamin D3] cyanocobalamin (vitamin B-12) 1,000 mcg PO QAM 04/22/20 04/22/20 History [Vitamin B-12] epinephrine 0.3 mg IM DIRECTED PRN 04/22/20 04/22/20 History garlic 0 mg PO QAM 04/22/20 04/22/20 History isosorbide mononitrate 30 mg PO QAM 04/22/20 04/22/20 History losartan 100 mg PO HS 04/22/20 04/22/20 History metformin 500 mg PO BIDM 04/22/20 04/22/20 History metoprolol tartrate 50 mg PO BID 04/22/20 04/22/20 History nitroglycerin [Nitrostat] 0.4 mg SUBLINGUAL DIRECTED PRN 04/22/20 04/22/20 History tamsulosin 0.4 mg PO Q OTHER DAY 04/22/20 04/22/20 History tiotropium bromide [Spiriva with 1 cap INHALATION DAILY 04/22/20 04/22/20 History HandiHaler] varenicline [Chantix Continuing 1 mg PO BID 04/22/20 04/22/20 History Month Box] Past Med/Surg History Medical History (Updated 04/22/20 @ 21:02 by Simona Stewart PA-C) Bladder cancer S/P surgery CAD (coronary artery disease) COPD (chronic obstructive pulmonary disease) Diabetes mellitus, type II HTN (hypertension) Melanoma Paroxysmal atrial fibrillation Surgical History (Updated 04/22/20 @ 20:58 by Simona Stewart PA-C) History of bladder surgery History of cystoscopy Family History (Updated 04/22/20 @ 20:59 by Simona Stewart PA-C) Other Cancer Coronary heart disease Hypertension Social History Smoking Status: Current every day smoker Cigarettes Per Day: 6-8; Do You Dip or Chew Tobacco: No; Hx Alcohol Use: No Hx Substance Use: No Preferred Language: Lao Communication Ability: Effective College Instructor Required: No Beliefs That Will Affect Care: None Current Living Situation: Spouse Other Information That Helps Us Care for You: No Feels Safe at Home: Yes Safety Concerns: Feels Safe At This Time Review of Systems Review of Systems: All systems reviewed & are unremarkable except as noted in HPI & below Physical Exam Physical Exam: General: no distress, WDWN Head: normocephalic, atraumatic Eyes: conjunctiva non-injected, anicteric ENT: normal inspection external ears, nose, mucous membranes moist Neck: supple, trachea midline Lungs: clear, no respiratory distress, no wheezing/rhonchi/rales CV: RRR, no murmur, no pretibial edema Abd: normal BS, soft, non-tender, no CVA tenderness at this time Ext: no cyanosis, no calf tenderness Neuro: A&O x 3, no focal deficits noted, normal affect Skin: warm, dry Results & Data Results & Data ([facility]) Vital Signs (Past 12 Hours) Vital Signs Temp Pulse Pulse Resp BP BP Pulse Ox 04/22/20 18:17 81 18 170/76 H 96 04/22/20 16:16 36.8 C 83 17 184/84 H 96 Laboratory Results Short CBC 04/22/20 Range/Units 16:55 WBC 16.77 H (4.8-10.8) K/uL Hgb 15.7 (14.0-18.0) g/dL Hct 45.6 (42-52) % Plt Count 192 (130-400) K/uL BMP 04/22/20 16:55 Sodium 143 Potassium 4.2 Chloride 111 H Carbon Dioxide 24 BUN 16 Creatinine 1.57 H Glucose 151 H Calcium 9.0 Cardiac Enzymes 04/22/20 Range/Units 16:55 Total Creatine Kinase 98 (39-308) U/L Liver Function 04/22/20 Range/Units 16:55 Total Bilirubin 0.6 (0.2-1) mg/dl AST 23 (15-37) U/L ALT 40 (12-78) U/L Alkaline Phosphatase 103 (45-117) U/L Albumin 3.9 (3.4-5.0) gm/dl Urine 04/22/20 Range/Units 16:45 Urine Color Dark Yellow Urine Appearance Cloudy A (Clear) Urine pH 5.0 (4.5-7.5) Ur Specific [place] 1.020 (1.000-1.030) Urine Protein 2+ H (Negative) Urine Glucose (UA) Negative (Negative) Diagnostic Findings CT ABD/PELVIS: IMPRESSION: 1. An obstructing 8 mm stone within the proximal to mid right ureter resulting in mild right hydronephrosis. 2. There is an obstructing 5 mm stone at the left ureterovesical junction resulting in mild left hydronephrosis. Of note, the left ureter is inserted along the left anterolateral bladder wall. 3. Right-sided nephrolithiasis. 4. Colonic diverticulosis. No evidence for diverticulitis. 5. No definite bowel wall thickening or obstruction. 6. A 3.2 cm infrarenal abdominal aortic aneurysm. 7. Trace pleural effusions and mild interlobular septal thickening at the lung bases. This favors mild congestive change. 8. Additional findings as described above. Code Status & VTE Plan VTE Prophylaxis Plan VTE Prophylaxis will be ordered: Yes Supervising Physician Co-Signing Physician Notes Patient is a 74 yr male with H/O Bladder cancer S/P surgery, CAD, DM II, COPD, P.afib and other problems presents with history of right flank pain, sharp, non radiating, associated with nausea and vomiting. He denies any hematuria, dysuria, fever, chills. Please review HPI for complete details of presentation. He was noted to have a WBC count of 16k, ANDRES with Cr: 1.5 and Urine analysis showed microscopic hematuria. CT abdomen showed and an obstructing 8 mm stone within the proximal to mid right ureter resulting in mild right hydronephrosis and an obstructing 5 mm stone at the left ureterovesical junction resulting in mild left hydronephrosis. Physical Exam: Vitals signs as noted above General Appearance:Moderately built and nourished, no apparent distress Head: normocephalic, Atraumatic Eyes: normal inspection, EOMI, PERRL Neck: supple, Trachea midline Respiratory/Chest: Normal breath sounds, + Basal Crackles, No accessory muscle use Cardiovascular: S1, S2, No murmur Abdomen/GI:Soft, Non tender, Bowel sounds present, No flank tenderness Extremities/Musculoskelatal:normal inspection, no edema Neurologic/Psych:AAOX3, grossly no focal neurological deficits Skin: normal color, warm Obstructive Uropathy B/L Ureteral Caliculi Acute Kidney Injury CT ABD as above Blood/Urine Cx obtained Start on broad spectrum Abx IV fluids, pain control Strain Urine Repeat KUB in AM Urology consulted NPO midnight Continue Tamsulosin Trial of ureteral stent placement tmw if unsuccessful, pt needs transfer to a tertiary center for nephrostomy tube placement. 3.2 cm infrarenal abdominal aortic aneurysm Incidental finding on CT Asymptomatic Follow up as outpatient I personally reviewed the record. Patient is interviewed and examined at bedside. Patient's care is coordinated with Olga Rothman PA-C. Please refer to the documentation above for details of patient's presentation and for discussion of other issues.
[2020-04-22] MEDS ORDERED: NITROGLYCERIN SL 0.4 MG/TAB TAB SL PRN (20:01)
[2020-04-22] MEDS ORDERED: DEXTROSE 50% 50 ML SYRINGE IV PRN (20:01)
[2020-04-22] MEDS ORDERED: GLUCOSE 40% GEL 15 GM TUBE PO PRN (20:01)
[2020-04-22] MEDS ORDERED: ONDANSETRON INJ 2 MG/ML 2 ML VIAL IV PRN (20:01)
[2020-04-22] MEDS ORDERED: GLUCAGON FOR INJ 1 MG VIAL SQ PRN (20:01)
[2020-04-22] MEDS ORDERED: ACETAMINOPHEN 1000 MG/100 ML IV IV PRN (20:01)
[2020-04-22] MEDS ORDERED: GLUCOSE 10 TABS/TUBE PO PRN (20:01)
[2020-04-22] MEDS ORDERED: SODIUM CHLORIDE 0.9% 1000ML 1,000 ML IV SCH (20:01)
[2020-04-22] MEDS ORDERED: ACETAMINOPHEN 325 MG TAB PO PRN (20:01)
[2020-04-22] MEDS ORDERED: MoRPHine SULFATE 2 MG/ML CARP IV PRN (20:01)
[2020-04-22] MEDS ORDERED: CARBOHYDRATES FOR HYPOGLYCEMIA PO PRN (20:01)
[2020-04-22] MEDS ORDERED: POLYETHYLENE (MIRALAX) 17 GM PACK PO PRN (20:01)
--- NOTE | 2020-04-22 20:24 | Urology Consultation ---
Date of Consultation April 22, 2020 Assessment & Plan (1) Bilateral ureteral calculi: Assessment Renal colic secondary to bilateral ureteral calculi. I reviewed his CT scan He has a stone in the mid right ureter and also a stone at the left ureterovesical junction at the level of the reimplant He has mild hydronephrosis on both sides Creatinine is 1.5 Since he is currently afebrile and not having any pain and tells me that he has been making urine I believe he does not have complete obstruction on both sides We discussed options today Ideally he would have bilateral stents placed I am a little concerned about stenting the reimplanted ureter whether I can find the ostium of the ureter or not which I did explain to him The other option will be to transfer him to a tertiary referral center where if need be he could have nephrostomy tube placed on the left side At this point does not want to be transferred to [facility] if possible. I believe is okay now as his urinalysis showed 1-5 white cells and no bacteria And he has no fever or chills and says he has been voiding Would place him on IV antibiotics Plan will be to stent him in the morning He does understand if he gets a fever or chills he will need to have a more emergent stent placed and again it may be difficult on the left side necessitating transfer to a tertiary referral center His choice for referral center would be [facility] as all of his records are there. History of Present Illness Attending Physician: Reed Fernandes MD History of Present Illness Patient is a 74-year-old white male who presented to the emergency room with right flank pain. The pain started around 11:00 this morning. He did have some nausea and vomiting. That has subsided. In the ER he rated his pain as a 3 out of 10. Currently after some pain medicine he is having no pain he has had no fevers or chills. He did have some left flank pain a month ago. He had x-rays at [facility] which I do not have access to. He does have a history of bladder cancer and has been followed by [facility] urology. He tells me that 1 of his tumors was obstructing the left ureter so he had a partial cystectomy and left ureteral implant done in [place] several years ago. He says he has been voiding. Denies any chest pain shortness of breath Allergies Allergy/AdvReac Type Severity Reaction Status Date / Time bee venom protein (honey bee) Allergy Severe ANAPHYLAXIS Verified 04/22/20 17:13 cephalexin [From Keflex] Allergy Unknown CAN'T Verified 04/22/20 17:13 MD CHIDI ADDED TO LIST Home Medications Home Medications Medication Instructions Recorded Confirmed Type aspirin [Aspir-81] 81 mg PO QAM 04/22/20 04/22/20 History atorvastatin 80 mg PO HS 04/22/20 04/22/20 History cholecalciferol (vitamin D3) 25 mcg PO QAM 04/22/20 04/22/20 History [Vitamin D3] cyanocobalamin (vitamin B-12) 1,000 mcg PO QAM 04/22/20 04/22/20 History [Vitamin B-12] epinephrine 0.3 mg IM DIRECTED PRN 04/22/20 04/22/20 History garlic 0 mg PO QAM 04/22/20 04/22/20 History isosorbide mononitrate 30 mg PO QAM 04/22/20 04/22/20 History losartan 100 mg PO HS 04/22/20 04/22/20 History metformin 500 mg PO BIDM 04/22/20 04/22/20 History metoprolol tartrate 50 mg PO BID 04/22/20 04/22/20 History nitroglycerin [Nitrostat] 0.4 mg SUBLINGUAL DIRECTED PRN 04/22/20 04/22/20 History tamsulosin 0.4 mg PO Q OTHER DAY 04/22/20 04/22/20 History tiotropium bromide [Spiriva with 1 cap INHALATION DAILY 04/22/20 04/22/20 History HandiHaler] varenicline [Chantix Continuing 1 mg PO BID 04/22/20 04/22/20 History Month Box] Patient History Social History Smoking Status: Current every day smoker Cigarettes Per Day: 6-8; Do You Dip or Chew Tobacco: No; Hx Alcohol Use: No Hx Substance Use: No Preferred Language: Slovak Communication Ability: Effective Postal Carrier Required: No Beliefs That Will Affect Care: None Current Living Situation: Spouse Other Information That Helps Us Care for You: No Feels Safe at Home: Yes Safety Concerns: Feels Safe At This Time Review of Systems Review of Systems: All systems reviewed & are unremarkable except as noted in HPI & below Physical Exam Physical Exam: CONSTITUTIONAL well developed/well-nourished male in no acute distress NEURO/PSYCH alert and oriented Normal mood and affect Normal coordination SKIN Normal color and turgor No rashes NECK Visual inspection normal PULMONARY Lungs are clear to auscultation Normal rhythm and effort No use of accessory muscles CARDIAC Regular rate and rhythm No murmurs No peripheral edema LYMPHATIC femoral and inguinal lymph nodes not palpable ABDOMEN Soft nontender No masses No hepatosplenomegaly Results & Data Vital Signs (Past 12 Hours) Vital Signs Temp Pulse Pulse Resp BP BP Pulse Ox 04/22/20 19:31 66 18 165/85 H 95 04/22/20 18:17 81 18 170/76 H 96 04/22/20 16:16 36.8 C 83 17 184/84 H 96 Laboratory Results Laboratory Results - last 24 hr 04/22/20 04/22/20 04/22/20 16:45 16:55 16:55 WBC 16.77 H RBC 4.76 Hgb 15.7 Hct 45.6 MCV 95.8 MCH 33.0 MCHC 34.4 RDW Std Deviation 48.4 H RDW Coeff of Ele 13.7 Plt Count 192 MPV 11.9 H Immature Gran % (Auto) 0.2 Neut % (Auto) 84.0 Lymph % (Auto) 9.5 Rich % (Auto) 5.7 Eos % (Auto) 0.4 Baso % (Auto) 0.2 Neut # (Auto) 14.08 H Lymph # (Auto) 1.60 Rich # (Auto) 0.96 H Eos # (Auto) 0.06 Baso # (Auto) 0.03 Immature Gran # (Auto) 0.04 H Sodium 143 Potassium 4.2 Chloride 111 H Carbon Dioxide 24 Anion Gap 8.0 BUN 16 Creatinine 1.57 H Est Cr Clr Drug Dosing 46.5 Est GFR ( Amer) 49.9 Est GFR (Non-Af Amer) 43.1 BUN/Creatinine Ratio 10.3 Glucose 151 H Calcium 9.0 Total Bilirubin 0.6 AST 23 ALT 40 Alkaline Phosphatase 103 Total Creatine Kinase 98 Total Protein 7.8 Albumin 3.9 Globulin 3.9 Albumin/Globulin Ratio 1.0 Lipase 169 Specimen Hemolysis Urine Color Dark Yellow Urine Appearance Cloudy A Urine pH 5.0 Ur Specific [place] 1.020 Urine Protein 2+ H Urine Glucose (UA) Negative Urine Ketones Trace H Urine Blood 3+ H Urine Nitrite Positive A Urine Bilirubin Negative Urine Urobilinogen Negative Ur Leukocyte Esterase 2+ H Urine WBC (Auto) 1-5 Urine RBC (Auto) >30 H U Hyaline Cast (Auto) 1-5 U Epithel Cells (Auto) 5-10 H Urine Bacteria (Auto) Negative Urine Yeast Not Reportable PG Care Time/CCT Total # of Minutes Spent Total Time Spent with Patient: Total time spent is greater than 50% in coordination of care (as documented) at patient's floor/unit and/or counseling patient: Coding Level of Care Code 38924 Initial Inpt Care Lvl 3 Diagnoses Bilateral ureteral calculi N20.1
[2020-04-22] MEDS ORDERED: AMLODIPINE BESYLATE 5 MG TAB PO ONE (20:31)
[2020-04-22] MEDS: INSULIN ASPART 100 UNITS/ML 3 ML PEN SC SCH (20:46)
[2020-04-22] MEDS ORDERED: ATORVASTATIN 40 MG TAB PO SCH (21:00)
[2020-04-22] MEDS: METOPROLOL TARTRATE 50 MG TAB PO SCH (21:46)
[2020-04-23] MEDS: PIPERACILLIN/TAZOBACTAM 3.375 GM in DEXTROSE 5% 100 ML IV SCH ×2 (00:34→07:54)
[2020-04-23 07:20] LABS: Basophils # (auto) 0.02 K/uL (0-0.2); Basophils % (auto) 0.2 %; Eosinophils # (auto) 0.13 K/uL (0-0.5); Eosinophils % (auto) 1.2 %; Hematocrit (blood only) 43.5 % (42-52); Hemoglobin 14.8 g/dL (14.0-18.0); Immature Granulocytes # (auto) 0.03 K/uL (0.00-0.02); Immature Granulocytes % (auto) 0.3 %; Lymphocytes # (auto) 2.39 K/uL (1.2-3.4); Lymphocytes % (auto) 22.9 %; Mean Corpuscular Hemoglobin 32.4 pg (25-34); Mean Corpuscular Volume 95.2 fL (80-100); Mean Platelet Volume 11.4 fL (7.4-10.4); Monocytes # (auto) 0.79 K/uL (0.11-0.59); Monocytes % (auto) 7.6 %; Neutrophils # (auto) 7.07 K/uL (1.4-6.5); Neutrophils % (auto) 67.8 %; Platelet Count 168 K/uL (130-400); RDW Coefficient of Variation 13.7 % (11.5-14.5); RDW Standard Deviation 47.7 fL (36.4-46.3); Red Blood Count 4.57 M/uL (4.7-6.1); White Blood Count 10.43 K/uL (4.8-10.8)
[2020-04-23] MEDS ORDERED: D5W AND 1/2NSS 1,000 ML IV SCH (07:30)
[2020-04-23] MEDS: INSULIN ASPART 100 UNITS/ML 3 ML PEN SC SCH ×2 (07:43→12:16)
[2020-04-23] MEDS: METOPROLOL TARTRATE 50 MG TAB PO SCH (07:46)
[2020-04-23 08:12] LABS: BUN Creatinine Ratio 10.5 (10-20); Calcium 8.4 mg/dl (8.5-10.1); Creatinine Clr Calc Pharmacy 64.9 ml/min; Est GFR (African American) 74.3; Est GFR (Non-African American) 64.1; Potassium 3.5 mmol/L (3.5-5.1)
--- NOTE | 2020-04-23 08:34 | XRay Report ---
KUB HISTORY: Ureteral stone COMPARISON: Abdomen and pelvis CT 04/22/2020. FINDINGS: The bowel gas pattern is unremarkable. There are no dilated loops of small bowel to suggest an obstruction. Punctate stone within the upper pole the right kidney is again noted. No left renal calculi. No change in position of the 1 cm mid right ureteral stone. There is also a 5 mm stone at t he left ureterovesical junction which is unchanged in position. Posterior spinal fusion hardware is a gain noted. There are bilateral S1 pedicle screw fractures. No pneumoperitoneum or pneumatosis. IMPRESSION: 1. No change in position of the bilateral ureteral stones. 2. Stable right-sided nephrolithiasis. 3. Fractures of the bilateral S1 pedicle screws. ACT 112: Negative or not required by law. Electronically signed by: Alex James M.D. 04/23/2020 8:32 AM
[2020-04-23] MEDS ORDERED: TAMSULOSIN HCL 0.4 MG CAP PO SCH (09:00)
[2020-04-23] MEDS ORDERED: ISOSORBIDE MONO EXTENDED REL 30 MG TABCR PO SCH (09:00)
[2020-04-23] MEDS ORDERED: ASPIRIN 81 MG ECTAB PO SCH (09:00)
[2020-04-23] MEDS ORDERED: UMECLIDINIUM BROMIDE 62.5MCG/BLISTER 7 PUFFS/INHALER INH SCH (09:00)
[2020-04-23 10:00] LABS: Estimated Average Glucose 128 mg/dl; Hemoglobin A1C 6.1 % (4.5-5.6)
--- NOTE | 2020-04-23 10:21 | Urology Progress Note ---
Date of Service April 23, 2020 Assessment & Plan (1) Bilateral ureteral calculi: Assessment Right proximal ureteral stone and left arvind-ureteral vesicle stone Left stone has been there since December at least per prior x-ray reports Since patient is pain-free afebrile voiding without problem and has a normal creatinine we discussed options today including #1 Proceed to the OR tomorrow for bilateral ureteroscopy laser lithotripsy and stents #2 proceed to the surgery center on Tuesday for bilateral extracorporal shockwave lithotripsy. We discussed the procedures in detail including the risks and benefits and stone free rates Patient said he would rather not have stents if possible and would rather have the extracorporal shockwave lithotripsy which will be scheduled If he is stable medically he can be discharged home. I would give him ample pain medication, nausea medication and an antibiotic If he is discharged today he should come to our office to do the paperwork for the extracorporeal shockwave lithotripsy Subjective Hospital day #2 from bilateral ureteral calculi Patient is afebrile vital signs are stable He has no complaints He has not had any flank pain since being admitted to the hospital He is voiding without difficulty Creatinine is down to 1.1 I reviewed his KUB both the right and left stones are clearly visible Patient had an old CT scan report from December of this year from [facility] in [place] which per the report says there is a stone in the reimplanted ureter near the bladder. The patient says that he was told there was a stone there but the only recommendations were to go to the ER if he develops pain Physical Exam Physical Exam: Constitutional Well-developed well-nourished In no acute distress, Healthy appearing Neuro/psych Alert and oriented x3 Normal mood Normal affect Normal coordination Skin Normal color Normal turgor No rashes Warm and Dry Neck Normal visual inspection Pulmonary Normal rhythm and effort No respiratory distress No audible wheezes Able to speak in complete sentences Cardiac No peripheral edema Results & Data Vital Signs (Past 12 Hours) Vital Signs Temp Pulse Pulse Resp BP Pulse Ox 04/23/20 07:55 67 04/23/20 07:13 56 L 04/23/20 07:03 36.6 C 100 H 16 162/74 H 96 04/23/20 03:41 36.9 C 61 18 158/71 H 92 04/23/20 00:07 59 L 07/21/20 23:59 37.1 C 64 20 165/75 H 95 PG Care Time/CCT Total # of Minutes Spent Total Time Spent with Patient: Total time spent is greater than 50% in coordination of care (as documented) at patient's floor/unit and/or counseling patient: Coding Level of Care Code 68859 Subseq Hosp Care Lvl 2 Diagnoses Bilateral ureteral calculi N20.1
--- NOTE | 2020-04-23 11:24 | XRay Report ---
XR chest 2V PA/lateral HISTORY: Cough. pre-op evaluation COMPARISON: Chest 01/09/2016. FINDINGS: The heart is normal in size. Mild diffuse interstitial thickening, unchanged. No new focal lung consolidations to suggest pneumonia. No evidence for pulmonary edema. Old, healed right-sided ri b fractures. No pneumothorax. Trace bilateral pleural effusions. IMPRESSION: Mild diffuse interstitial thickening, unchanged. This could be chronic or due to mild congestive heredia ge. There are also trace bilateral pleural effusions. This could be ACT 112: Negative or not required by law. Electronically signed by: Alex James M.D. 04/23/2020 11:23 AM
--- NOTE | 2020-04-23 12:31 | Electrocardiogram Report ---
Test Reason : Blood Pressure : / mmHG Vent. Rate : 075 BPM Atrial Rate : 075 BPM P-R Int : 164 ms QRS Dur : 092 ms QT Int : 404 ms P-R-T Axes : 022 044 000 degrees QTc Int : 451 ms Poor data quality, interpretation may be adversely affected Normal sinus rhythm Normal ECG When compared with ECG of 21-JUN-2017 11:28, Premature ventricular complexes are no longer Present Inverted T waves have replaced nonspecific T wave abnormality in Inferior leads QT has lengthened Confirmed by Kiel Yepez ([id number]) on 04/23/2020 12:31:01 PM Referred By: REFERRED SELF Confirmed By:Kiel Yepez
--- NOTE | 2020-04-23 13:51 | Hospitalist Progress Note ---
Date of Service April 23, 2020 Assessment & Plan (1) Bilateral ureteral calculi: with OBSTRUCTIVE UROPATHY -Pt is 74 y/o M with PMH CAD, DM II, COPD, paroxysmal atrial fibrillation, HTN, h/o bladder cancer s/p surgery presented to ER on 04/22/2020 with c/o Right flank pain today. Pt states today started with right sided flank pain with associated nausea and vomiting. Denies fever/chills. -In ER pt afebrile, P: 83, R: 17, BP: 184/84, 96% on RA. WBC: 16, BUN: 16, Cr: 1.57, UA: +nitrite, 3+ blood, 2+leuk esterase, >30 WBC, 5-10 epithelial, negative bacteria CT ABD/PELVIS: 1. An obstructing 8 mm stone within the proximal to mid right ureter resulting in mild right hydronephrosis. 2. There is an obstructing 5 mm stone at the left ureterovesical junction resulting in mild left hydronephrosis. Of note, the left ureter is inserted along the left anterolateral bladder wall. 3. Right-sided nephrolithiasis. 4. Colonic diverticulosis. No evidence for diverticulitis. 5. No definite bowel wall thickening or obstruction. 6. A 3.2 cm infrarenal abdominal aortic aneurysm. 7. Trace pleural effusions and mild interlobular septal thickening at the lung bases. This favors mild congestive change. -pain controlled in the ED and IV fluids improved the kidney function. -was empirically on Zosyn because of kidney stones and leukocytosis. no fevers. leukocytosis downtrended. -as of 04/23/2020 patient has not yet passed the kidney stones -patient evaluated by [facility] urology -Patient is instructed by urology service to schedule outpatient extracorporeal shockwave lithotripsy [facility] Address: [address] [place] [address] , [place] [address] discharge medications sent electronically to [address] [id number] of acetaminophen 325 mg every 6 hours as needed for pain or fever, oxycodone 5 mg every 6 hours as needed for moderate to severe pain (16 pills prescribed), Augmentin 500 mg twice a day for 5 more days Losartan blood pressure medication should be held until kidney stones removed. Amlodipine 10 mg daily to be prescribed as substitute for now other upcoming appointments 04/25/2020 3:00 PM Provider Operational Intelligence Analyst 1 Gw Department Cardiac Studies, [facility] 04/28/2020 12:00 PM Provider Loretta Dhillon MD Department Internal Medicine [facility] 06/18/2020 2:30 PM Provider Luke Sanchez PA-C Department Cardiology, [facility] (2) ANDRES (acute kidney injury): -Probable secondary to obstructing stone, on admission BUN: 16, Cr: 1.57, GFR: 43 compared to Baseline Cr: 1.1-1.2 -creatinine improved with IV fluids -outpatient follow up with urology and primary care doctor (3) HTN (hypertension): -Continue metoprolol -losartan was held on this admission due to renal function -was given amlodipine 5 mg overnight. -Losartan blood pressure medication should be held until kidney stones removed. Amlodipine 10 mg daily to be prescribed as substitute for now (4) Diabetes mellitus, type II: A1c: 6.0 in 01/2020 -resume home dose metformin on discharge (5) CAD (coronary artery disease): -Continue aspirin, isosorbide, metoprolol, atorvastatin (6) Paroxysmal atrial fibrillation: -in the past patient had reported episode of atrial fibrillation after a surgery. Not on anticoagulation -is Sinus rhythm -Continue metoprolol (7) COPD (chronic obstructive pulmonary disease): No signs of exacerbation Continue Spiriva (8) Bladder cancer: -and status post surgery in the past for this issue Admission and Anticipated Discharge Date Admission Date: April 22, 2020 Subjective denies flank pain. denies dysuria. denies passing the kidney stones by urination but patient feels comfortable to go home and follow up with urology as outpatient as advised by urology service. no fevers. no vomiting today. ate the food. no nausea. no chest pain. breathing on room air. no shortness of breath. no dizziness. ambulatory Review of Systems Review of Systems: All systems reviewed & are unremarkable except as noted in Subjective Physical Exam Eyes: PERRL, conjunctivae normal, anicteric sclerae EOM intact bilaterally ENMT: external ear and nose normal, oropharynx normal Neck: trachea midline, no thyromegaly normal visual inspection Respiratory: normal respiratory effort, lungs clear to auscultation Cardiovascular: Rate/Rhythm: regular rate Gastrointestinal (Abdomen): normal bowel sounds, soft, nontender, no hepatosplenomegaly Musculoskeletal: Head/Neck/Chest: normocephalic and head atraumatic Neurologic: PERRL, EOMI, accommodation nl, no face palsy, no dysarthria CN's II-XI intact bilaterally Psychiatric: A+Ox3, euthymic affect Results & Data Results & Data ([facility]) Vital Signs (Past 12 Hours) Vital Signs Temp Pulse Pulse Resp BP Pulse Ox 04/23/20 13:03 36.5 C 61 16 158/65 H 94 04/23/20 11:16 36.5 C 55 L 16 158/65 H 94 04/23/20 07:55 67 04/23/20 07:13 56 L 04/23/20 07:03 36.6 C 100 H 16 162/74 H 96 04/23/20 03:41 36.9 C 61 18 158/71 H 92
--- NOTE | 2020-04-23 13:52 | Discharge Summary ---
Date of Service April 23, 2020 Admission HPI Per Admitting Provider Pt is 74 y/o M with PMH CAD, DM II, COPD, paroxysmal atrial fibrillation, HTN, h/o bladder cancer s/p surgery presented to ER with c/o Right flank pain today. Pt states today started with right sided flank pain with associated nausea and vomiting. Denies fever/chills. Pt with s/o left flank pain in 12/2019 and on 12/20/2019 was seen at PCP office and had CT abd/pelvis showing 6mm calculus with mild obstructive uropathy at neoureterovesicular junction. At that time he was given course of Bactrim which he reports he finished however was still having intermittent left flank pain. Pt states left flank pain later resolved. Reports urinating without difficulty and denies dysuria. Didn't notice any hematuria until here in ER today. Denies diaphoresis, diarrhea, constipation, NAQVI, dizziness, syncope, vision changes, neck pain, CP, SOB, orthopnea, palpitations, cough, sore throat, choking, otalgia, rhinorrhea, other abdominal pain, paresthesias, weakness, extremity weakness, extremity edema, rashes. Principal Diagnosis Bilateral ureteral calculi with Obstructive Uropathy Acute Kidney Injury (improved) Hypertension Diabetes mellitus, type II Discharge Exam Eyes PERRL, conjunctivae normal, anicteric sclerae EOM intact bilaterally ENMT external ear and nose normal, oropharynx normal Neck trachea midline, no thyromegaly normal visual inspection Respiratory normal respiratory effort, lungs clear to auscultation Cardiovascular Rate/Rhythm: regular rate Gastrointestinal (Abdomen) normal bowel sounds, soft, nontender, no hepatosplenomegaly Musculoskeletal Head/Neck/Chest: normocephalic and head atraumatic Neurologic PERRL, EOMI, accommodation nl, no face palsy, no dysarthria CN's II-XI intact bilaterally Psychiatric A+Ox3, euthymic affect Discharge Data Allergies Allergy/AdvReac Type Severity Reaction Status Date / Time bee venom protein (honey bee) Allergy Severe ANAPHYLAXIS Verified 04/22/20 17:13 cephalexin [From Keflex] Allergy Unknown CAN'T Verified 04/22/20 17:13 MD CHIDI ADDED TO LIST Consultations 04/22/20 18:08 ED Decision to Admit Stat 04/22/20 20:01 Consult Urology Routine Ordered Studies 04/22/20 16:32 CT abd pelvis wo con Stat Hospital Course (1) Bilateral ureteral calculi: with OBSTRUCTIVE UROPATHY -Pt is 74 y/o M with PMH CAD, DM II, COPD, paroxysmal atrial fibrillation, HTN, h/o bladder cancer s/p surgery presented to ER on 04/22/2020 with c/o Right flank pain today. Pt states today started with right sided flank pain with associated nausea and vomiting. Denies fever/chills. -In ER pt afebrile, P: 83, R: 17, BP: 184/84, 96% on RA. WBC: 16, BUN: 16, Cr: 1.57, UA: +nitrite, 3+ blood, 2+leuk esterase, >30 WBC, 5-10 epithelial, negative bacteria CT ABD/PELVIS: 1. An obstructing 8 mm stone within the proximal to mid right ureter resulting in mild right hydronephrosis. 2. There is an obstructing 5 mm stone at the left ureterovesical junction resulting in mild left hydronephrosis. Of note, the left ureter is inserted along the left anterolateral bladder wall. 3. Right-sided nephrolithiasis. 4. Colonic diverticulosis. No evidence for diverticulitis. 5. No definite bowel wall thickening or obstruction. 6. A 3.2 cm infrarenal abdominal aortic aneurysm. 7. Trace pleural effusions and mild interlobular septal thickening at the lung bases. This favors mild congestive change. -pain controlled in the ED and IV fluids improved the kidney function. -was empirically on Zosyn because of kidney stones and leukocytosis. no fevers. leukocytosis downtrended. -as of 04/23/2020 patient has not yet passed the kidney stones -patient evaluated by [facility] urology -Patient is instructed by urology service to schedule outpatient extracorporeal shockwave lithotripsy [facility] Address: [address] [place] [address] , [place] [address] discharge medications sent electronically to [address] [id number] of acetaminophen 325 mg every 6 hours as needed for pain or fever, oxycodone 5 mg every 6 hours as needed for moderate to severe pain (16 pills prescribed), Augmentin 500 mg twice a day for 5 more days Losartan blood pressure medication should be held until kidney stones removed. Amlodipine 10 mg daily to be prescribed as substitute for now other upcoming appointments 04/25/2020 3:00 PM Provider Electronic Musical Instrument [employer]airer 1 Gw Department Cardiac Studies, [facility] 04/28/2020 12:00 PM Provider Loretta Dhillon MD Department Internal Medicine [facility] 06/18/2020 2:30 PM Provider Luke Sanchez PA-C Department Cardiology, [facility] (2) ANDRES (acute kidney injury): -Probable secondary to obstructing stone, on admission BUN: 16, Cr: 1.57, GFR: 43 compared to Baseline Cr: 1.1-1.2 -creatinine improved with IV fluids -outpatient follow up with urology and primary care doctor (3) HTN (hypertension): -Continue metoprolol -losartan was held on this admission due to renal function -was given amlodipine 5 mg overnight. -Losartan blood pressure medication should be held until kidney stones removed. Amlodipine 10 mg daily to be prescribed as substitute for now (4) Diabetes mellitus, type II: A1c: 6.0 in 01/2020 -resume home dose metformin on discharge (5) CAD (coronary artery disease): -Continue aspirin, isosorbide, metoprolol, atorvastatin (6) Paroxysmal atrial fibrillation: -in the past patient had reported episode of atrial fibrillation after a surgery. Not on anticoagulation -is Sinus rhythm -Continue metoprolol (7) COPD (chronic obstructive pulmonary disease): No signs of exacerbation Continue Spiriva (8) Bladder cancer: -and status post surgery in the past for this issue Total Time Total Time Spent Total Time Spent (In Minutes): 40 minutes Total Time Includes: Examination of the Patient, Discharge Planning, Medication Reconciliation and Communication With Other Providers Discharge Plan Discharge Items Patient Disposition: Home - Self-Care Reason For Visit: OBSTRUCTING URETER STONE Discharge Diagnosis: Bilateral ureteral calculi with Obstructive Uropathy Acute Kidney Injury (improved) Hypertension Diabetes mellitus, type II Condition on Discharge: Good Activity: Resume your previous activity Non-emergency contact: Primary Care Provider and Urologist Call non-emergency contact if: you have any medication questions Follow-up/Referrals: Loretta Bush MD [Primary Care Provider] - Diet: Regular Addtl Attending Provider Instructions: Patient is instructed by urology service to schedule outpatient extracorporeal shockwave lithotripsy [facility] Address: [address] [place] [address] , [place] [address] discharge medications [address] electronically [address] [place] [address] of acetaminophen 325 mg every 6 hours as needed for pain or fever, oxycodone 5 mg every 6 hours as needed for moderate to severe pain (16 pills prescribed), Augmentin 500 mg twice a day for 5 more days Losartan blood pressure medication should be held until kidney stones removed. Amlodipine 10 mg daily to be prescribed as substitute for now other upcoming appointments 04/25/2020 3:00 PM Provider Electronic Musical Instrument Repairer 1 Department Cardiac Studies, [facility] 04/28/2020 12:00 PM Provider Loretta Dhillon MD Department Internal Medicine [facility] 06/18/2020 2:30 PM Provider Luke Sanchez PA-C Department Cardiology, [facility] Pending Studies at Discharge: No Stand-Alone Forms: My [facility], Smoking Cessation Medications and DC Order Prescriptions: New acetaminophen 325 mg Tablet 325 mg PO Q6H PRN (Reason: fever or pain) 5 Days Qty: 20 RF: 0 oxycodone 5 mg tablet 5 mg PO Q6H PRN (Reason: moderate to severe pain) 4 Days Qty: 16 RF: 0 amlodipine [Norvasc] 5 mg Tablet 10 mg PO QAM 15 Days Qty: 30 RF: 0 amoxicillin-pot clavulanate 500-125 mg Tablet 1 tab PO BIDM 5 Days Qty: 10 RF: 0 Continued metformin 500 mg tablet 500 mg PO BIDM RF: 0 atorvastatin 80 mg tablet 80 mg PO HS RF: 0 isosorbide mononitrate 30 mg tablet extended release 24 hr 30 mg PO QAM RF: 0 cyanocobalamin (vitamin B-12) [Vitamin B-12] 1,000 mcg Tablet 1,000 mcg PO QAM RF: 0 aspirin [Aspir-81] 81 mg Tablet,Delayed Release (Dr/Ec) 81 mg PO QAM RF: 0 tamsulosin 0.4 mg capsule 0.4 mg PO Q OTHER DAY RF: 0 metoprolol tartrate 50 mg tablet 50 mg PO BID RF: 0 nitroglycerin [Nitrostat] 0.4 mg Tablet, Sublingual 0.4 mg sublingual DIRECTED PRN (Reason: Chest Pain) RF: 0 epinephrine 0.3 mg/0.3 mL auto-injector 0.3 mg IM DIRECTED PRN (Reason: Allergic Reaction) RF: 0 cholecalciferol (vitamin D3) [Vitamin D3] 25 mcg (1,000 unit) Capsule 25 mcg PO QAM RF: 0 Spiriva with HandiHaler 18 mcg capsule, w/inhalation device 1 cap INHALATION DAILY RF: 0 Chantix Continuing Month Box 1 mg tablet 1 mg PO BID RF: 0 Discontinued garlic 1,000 mg Capsule 0 mg PO QAM RF: 0 losartan 100 mg tablet 100 mg PO HS RF: 0 Discharge Orders: Discharge Order (Routine); Ordered 04/23/20 Ordered By: Jimbo Cody Admission Data Admit Date/Time: 04/22/20 18:37 Attending Provider: Jimbo Cody Admit Provider: Reed Fernandes Primary Care Provider: Loretta Bush Other Providers: Reed Fernandes ; Ronni Rubio Other Interventions: Discharge Summary Assessment (RN) Last Done: 04/23/20 13:03
[2020-04-23] MEDS ORDERED: AMOXICILLIN/CLAVULANATE 500 MG TAB PO SCH (17:00)
[2020-04-24] MEDS ORDERED: AMLODIPINE BESYLATE 5 MG TAB PO SCH (09:00)
--- NOTE | 2020-05-02 12:04 | Coding Query ---
To promote full compliance with coding requirements relating to patient care, provider participation is requested in all cases of immigration manager uncertainty. Please assist us with the question(s) below: Coding Question(s): The diagnosis below was documented in the ER H&P, then subsequently fell off all further documentation. Please indicate if it is still a possible diagnosis or ruled out. Physician's Response(s): ACUTE UTI ( ) Diagnosed and POA ( ) Diagnosed and not POA ( x ) Ruled out ( ) Other (please specify) MTDD
== END 2020-04-23 14:07 | disposition home or self-care (01) | DRG 694 ==
LOC: ED 16:10 → SUATTDRO 18:37 → 2N 18:37

== ENCOUNTER 2022-03-05 22:01 | Inpatient (IN) ==
[2022-03-05] MEDS ORDERED: PIPERACILLIN/TAZOBACTAM 4.5 GM/120 ML BAG IV ONE (22:37)
[2022-03-05] MEDS ORDERED: SODIUM CHLORIDE 0.9% 1000ML 1,000 ML IV SCH (22:45)
[2022-03-05 22:59] LABS: Basophils # (auto) 0.02 K/uL (0-0.2); Basophils % (auto) 0.1 %; Eosinophils # (auto) 0.54 K/uL (0-0.5); Eosinophils % (auto) 3.8 %; Hematocrit (blood only) 41.9 % (42-52); Hemoglobin 14.6 g/dL (14.0-18.0); Immature Granulocytes # (auto) 0.04 K/uL (0.00-0.02); Immature Granulocytes % (auto) 0.3 %; Lymphocytes % (auto) 11.4 %; Mean Corpuscular Hemoglobin 33.7 pg (25-34); Mean Corpuscular Hgb Conc 34.8 g/dL (32-36); Mean Corpuscular Volume 96.8 fL (80-100); Mean Platelet Volume 11.1 fL (7.4-10.4); Monocytes # (auto) 1.11 K/uL (0.11-0.59); Monocytes % (auto) 7.9 %; Neutrophils # (auto) 10.78 K/uL (1.4-6.5); Neutrophils % (auto) 76.5 %; Platelet Count 196 K/uL (130-400); RDW Coefficient of Variation 13.7 % (11.5-14.5); RDW Standard Deviation 49.1 fL (36.4-46.3); Red Blood Count 4.33 M/uL (4.7-6.1); White Blood Count 14.09 K/uL (4.8-10.8)
[2022-03-05 23:10] LABS: INR 1.1 (0.9-1.1); Partial Thromboplastin Ratio 1.4; Partial Thromboplastin Time 39.5 Seconds (21.0-31.0); Prothrombin Time 11.5 Seconds (9.0-12.0)
[2022-03-05 23:10] LABS: iSTAT Arterial Blood Gas HCO3 22 meg/L (19-24); iSTAT Arterial Blood Gas pCO2 34 mmHg (35-46); iSTAT Arterial Blood Gas pH 7.41 (7.35-7.45); iSTAT Arterial Blood Gas pO2 59 mmHg (80-95); iSTAT Carbon Dioxide 23 mmol/L (24-31); iSTAT Hematocrit 41 % (42-52); iSTAT Hemoglobin 13.9 g/dl (14.0-18.0); iSTAT Potassium 3.8 mmol/L (3.3-5.0); iSTAT Sodium 138 mmol/L (135-144)
[2022-03-05 23:18] LABS: Appearance Urine Clear (Clear); Bacteria Urine Automated Negative (Negative); Blood Urine Negative (Negative); Color Urine Dark Yellow; Epithelial Cell Urine Auto >30 /lpf (0-5); Glucose Urine UA Negative (Negative); Ketones Urine Trace (Negative); Leukocyte Esterase Urine 1+ (Negative); Nitrite Urine Negative (Negative); Protein Urine 1+ (Negative); RBC Urine Automated 0-4 /hpf (0-4); Specific Gravity Urine 1.019 (1.000-1.030); Urobilinogen Urine Negative (Negative)
[2022-03-05 23:20] LABS: Bilirubin Urine 1+ (Negative)
--- NOTE | 2022-03-05 23:31 | Emergency Department Note ---
ED Visit Note Physician Evaluation Note: I have personally evaluated and examined this patient. I agree with assessment and plan of Ana Estrella PA-C. 76-year-old male with worsening shortness of breath and cough and fevers at home. Due to this he comes to the ER. He was hypoxic on arrival. He has had fevers at home. Blood cultures and septic work- up initiated. He was given empiric antibiotics. He is not hypotensive. Patient notes feeling much improved after being placed on oxygen. I was consulted by the Advanced Practice Provider. I saw the patient personally and performed a substantive portion of the visit. This includes aspects of the HPI, MDM, diagnostic interpretations, and disposition/plan. Cuba Nielsen MD : Pneumonia Qualifiers: Pneumonia type: due to unspecified organism Laterality: bilateral Lung location: unspecified part of lung Qualified Code(s): J18.9 - Pneumonia, unspecified organism
--- NOTE | 2022-03-05 23:35 | XRay Report ---
SINGLE VIEW CHEST CLINICAL HISTORY: Sepsis. FINDINGS: An AP, portable, upright chest radiograph is compared to study dated 07/29/2021 and correla jannette with chest CT dated 06/04/2011. The examination is degraded by portable technique and apical lordot ic positioning. The cardiomediastinal silhouette is unremarkable noting atherosclerotic calcification of the thoracic aorta. Emphysema and chronic interstitial thickening is similar to previous. Mild ai rspace opacities are seen in the mid to lower lungs bilaterally. No large pleural effusion or pneumot horax is identified. The skeletal structures are osteopenic. There are healed right-sided rib fractur es. IMPRESSION: 1. Mild airspace opacities are seen in the mid to lower lungs bilaterally. Correlate clinically for e vidence of an infectious/inflammatory pneumonitis. Radiographic follow-up to resolution is recommende d. 2. Emphysema. ACT 112: Negative or not required by law. Electronically signed by: Chirag Woodruff M.D. 03/05/2022 11:34 PM
[2022-03-05 23:39] LABS: Albumin Globulin Ratio 1.4 (0.9-2); Albumin Level 3.9 gm/dl (3.4-5.0); BUN Creatinine Ratio 17.8 (10-20); Calcium 9.2 mg/dl (8.5-10.1); Creatinine Clr Calc Pharmacy 47.4 ml/min; Est GFR (African American) 53.8 ml/min; Est GFR (Non-African American) 46.4 ml/min; Globulin 2.7 gm/dl (2.5-4.0); Magnesium 1.7 mg/dl (1.7-2.4); Total Protein 6.6 gm/dl (6.0-8.3)
[2022-03-05 23:45] LABS: Troponin I High Sensitivity 7.3 pg/ml (0-20)
[2022-03-05 23:48] LABS: Adenovirus PCR Not Detected (NotDetected); Bordetella parapertussis PCR Not Detected (NotDetected); Bordetella pertussis PCR Not Detected (NotDetected); Chlamydia pneumoniae PCR Not Detected (NotDetected); Coronavirus 229E PCR Not Detected (NotDetected); Coronavirus CoV-2 (COVID19)PCR Not Detected (NotDetected); Coronavirus HKU1 PCR Not Detected (NotDetected); Coronavirus NL63 PCR Not Detected (NotDetected); Coronavirus OC43PCR Not Detected (NotDetected); Human Metapneumovirus PCR Not Detected (NotDetected); Influenza A PCR Not Detected (NotDetected); Influenza B PCR Not Detected (NotDetected); Mycoplasma pneumoniae PCR Not Detected (NotDetected); Parainfluenza Virus 1 PCR Not Detected (NotDetected); Parainfluenza Virus 2 PCR Not Detected (NotDetected); Parainfluenza Virus 3 PCR Not Detected (NotDetected); Parainfluenza Virus 4 PCR Not Detected (NotDetected); Respiratory Syncytial VirusPCR Not Detected (NotDetected); Rhinovirus/Enterovirus PCR Not Detected (NotDetected)
[2022-03-05] MEDS ORDERED: ALBUT/IPRATROP 3MG/0.5MG NEB 3 ML VIAL NEB STA (23:49)
[2022-03-05] MEDS ORDERED: dexAMETHasone**PF** 10 MG/ML VIAL IV ONE (23:49)
[2022-03-06] MEDS ORDERED: OPTIRAY 320 125ml IV ONE (00:31)
--- NOTE | 2022-03-06 00:41 | CT Scan Report ---
CT ANGIOGRAM OF THE CHEST CLINICAL HISTORY: Cough. Generalized weakness. COMPARISON STUDY: Chest x-ray dated 03/05/2022. Chest CT dated 06/04/2011. TECHNIQUE: Following the IV administration of 103 cc of Optiray 320, CT angiogram of the chest was pe rformed from the upper abdomen to the thoracic inlet utilizing the pulmonary embolus protocol. Images are reviewed in the axial, sagittal, and coronal planes. 3-D MIPS images are created and assessed. I V contrast was administered without complication. A dose lowering technique was utilized adhering to the principles of ALARA. The examination is modestly degraded by motion artifact. CT DOSE: 550.01 mGy.cm FINDINGS: Thyroid: Imaged portions of the thyroid gland are normal in size and attenuation. Thoracic aorta: There is atherosclerotic calcification of the thoracic aorta, which is normal in hien jose de jesus and demonstrates standard 3-vessel arch anatomy. No dissection is seen. Pulmonary vasculature: The pulmonary trunk is normal in caliber. There are no filling defects identif ied in main, lobar, or segmental pulmonary branches to suggest pulmonary embolus. Heart: The heart is mildly enlarged noting trace pericardial effusion. The coronary arteries are dens ashley calcified. Lungs and pleural spaces: Emphysematous change is noted. There is diffuse intralobular septal thicken ing. Mild groundglass opacities are seen in the lower lobes. There are trace pleural effusions with d ependent atelectasis. A 1.4 cm irregular nodule is seen in the left lower lobe in image #157. Mediastinum: Mildly enlarged mediastinal lymph nodes measure up to 16 mm in short axis. Christina: Enlarged bilateral hilar nodes measure up to 14 mm in short axis. Axillae: There is no axillary lymphadenopathy. Upper abdomen: Right renal cysts are partially visualized and measures up to 3 cm. A nonobstructing c alculus is seen in the right upper pole. A tiny hiatal hernia is noted. Skeletal structures: The skeletal structures are heterogeneously osteopenic. Degenerative change is n oted in the shoulders and thoracic spine. There are healed right-sided rib fractures there No lytic o r blastic bony lesions are seen. IMPRESSION: 1. There is no evidence of pulmonary embolus in the main, lobar, or segmental pulmonary arteries. 2. Cardiomegaly and emphysema with evidence of congestive failure. 3. Groundglass opacities likely represent mild pulmonary edema. 4. Trace pleural effusions. 5. Mildly enlarged mediastinal and hilar lymph nodes are nonspecific and may be reactive. 6. A 1.4 cm irregular pulmonary nodule is seen in the left lower lobe. This is indeterminant and may be inflammatory. A 3 month follow-up chest CT is recommended for reassessment. 7. Additional findings as above. ACT 112: Positive. There are findings on this exam that require communication between the performing entity and the patient following Patient Test Result Information Act ([place] Act 112) guidelines. Electronically signed by: Chirag Woodruff M.D. 03/06/2022 12:39 AM
--- NOTE | 2022-03-06 01:03 | Emergency Department Note ---
History of Present Illness General Chief complaint: Fever Stated complaint: FEVER, CHILLS, WEAKNESS, COUGH Time Seen by Provider: 03/05/22 22:29 History of Present Illness This 76-year-old presents to the ER complaining of fever cough congestion and dyspnea who is vaccinated for COVID Location: Generalized Quality: Hard to breathe Severity: Moderate Duration: Past few days Timing: Started few days ago Context: Patient was concerned and came in Modifying factors: better with rest; worse with activity Patient states he feels quite short of breath. No history of blood clots. Patient denies abdominal pain, leg pain, headache, neck stiffness. Home Medications Medication Instructions Recorded Confirmed Type aspirin 81 mg tablet,delayed 81 mg PO QA 04/22/20 02/08/22 History release (Aspir-) atorvastatin 80 mg tablet 80 mg PO HS 04/22/20 02/08/22 History cholecalciferol (vitamin D3) 25 2,000 unit PO QAM 04/22/20 02/08/22 History mcg (1,000 unit) capsule (Vitamin D3) cyanocobalamin (vitamin B-12) 1,000 mcg PO QAM 04/22/20 02/08/22 History 1,000 mcg tablet (Vitamin B-12) epinephrine 0.3 mg/0.3 mL 0.3 mg IM DIRECTED PRN 04/22/20 02/08/22 History injection, auto-injector isosorbide mononitrate 30 mg 30 mg PO QAM 04/22/20 02/08/22 History tablet,extended release 24 hr metformin 500 mg tablet 500 mg PO BIDM 04/22/20 02/08/22 History metoprolol tartrate 50 mg tablet 50 mg PO BID 04/22/20 02/08/22 History nitroglycerin 0.4 mg sublingual 0.4 mg SUBLINGUAL DIRECTED PRN 04/22/20 02/08/22 History tablet (Nitrostat) tamsulosin 0.4 mg capsule 0.4 mg PO QAM 04/22/20 02/08/22 History garlic 500 mg capsule 500 mg PO QAM 04/24/20 02/08/22 History amlodipine 10 mg tablet 5 mg PO QAM 05/12/20 02/08/22 History doxycycline hyclate 100 mg tablet 100 mg PO BID 7 Days #14 tab 12/10/20 02/08/22 Rx ondansetron 4 mg disintegrating 4 mg PO Q4H PRN #8 tab 07/20/21 02/08/22 Rx tablet oxycodone 5 mg tablet 5 - 10 mg PO Q4H PRN #14 tab 07/20/21 02/08/22 Rx hydrocodone 5 mg-acetaminophen 325 1 tab PO Q6H PRN #10 tab 09/30/21 02/08/22 Rx mg tablet Allergies Allergy/AdvReac Type Severity Reaction Status Date / Time bee venom protein (honey bee) Allergy Severe ANAPHYLAXIS Verified 02/08/22 09:33 cephalexin [From Keflex] Allergy Unknown CAN'T Verified 02/08/22 09:33 MD CHIDI ADDED TO LIST Past Med/Surg History Medical History 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 follow with Dr. Carroll/ [facility] Surgical History History of cardiac cath 2017 > 1 STENT > [facility] History of lithotripsy recent--08/21/21 @ [place] History of lumbar spinal fusion 2010 1968 History of tooth extraction Hx of colonoscopy Family History Father Diabetes Grandmother (Paternal) Diabetes Other Cancer Coronary heart disease Hypertension Social History Smoking Status: Current every day smoker Tobacco Type: Cigarettes Cigarettes Per Day: 12-15; Second Hand Exposure: No; Hx Alcohol Use: Yes Alcohol type: beer Hx Substance Use: No Preferred Language: Surinamese Communication Ability: 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 Beliefs That Will Affect Care: None marital status: Current Living Situation: Spouse Feels Safe at Home: Yes Assistive Devices: Denture - Upper, Denture - Lower and Glasses Review of Systems A total of 10 systems reviewed and were otherwise negative Physical Exam Vital Signs Vital Signs - 24 hr 03/05/22 22:03 03/05/22 22:37 03/05/22 22:58 Temperature 37.3 C Temperature Source Oral Pulse Rate 87 77 Pulse Rate [Apical] Pulse Rate from SpO2 Sensor 75 Pulse Rhythm Regular Pulse Strength Normal Respiratory Rate 18 20 13 Respiratory Effort / Characteristics Non-Labored Spontaneous Non-Labored Respiratory Depth Normal Respiratory Pattern Regular Blood Pressure 112/60 115/70 Blood Pressure [Left Arm] Blood Pressure Mean 77 85 Blood Pressure Mean [Left Arm] Blood Pressure Position Sitting Blood Pressure Position [Left Arm] Pulse Oximetry 88 L 91 91 Oxygen Delivery Method Room Air Nasal Cannula Oxygen Flow Rate 4 Sepsis Recent Fever Within 48 Hours Yes Sepsis New/Unexplained Change in Mental Status N/A Sepsis Action Taken by Nursing No Action Required 03/05/22 23:00 03/06/22 00:35 Temperature Temperature Source Pulse Rate 79 Pulse Rate [Apical] 79 Pulse Rate from SpO2 Sensor 74 Pulse Rhythm Pulse Strength Respiratory Rate 25 H 20 Respiratory Effort / Characteristics Short of Breath Respiratory Depth Respiratory Pattern Regular Blood Pressure 109/68 Blood Pressure [Left Arm] 137/52 L Blood Pressure Mean 81 Blood Pressure Mean [Left Arm] 80 Blood Pressure Position Blood Pressure Position [Left Arm] Semi-fowlers Pulse Oximetry 91 87 L Oxygen Delivery Method Nasal Cannula Oxygen Flow Rate 5 Sepsis Recent Fever Within 48 Hours Sepsis New/Unexplained Change in Mental Status Sepsis Action Taken by Nursing VITALS: Vitals are noted on the nurse's note and reviewed by myself. Vital signs hypoxic on room air which improved with nasal cannula. GENERAL: Elderly male coughing working to breathe, in moderate acute distress, nondiaphoretic SKIN: The skin was without rashes, erythema, edema, or bruising. There is no tenting of the skin. Capillary reflex less than 2 seconds. HEAD: Normocephalic atraumatic. EARS: External auditory canals clear, tympanic membranes pearly seth without erythema or effusion bilaterally. EYES: Pupils equal round and reactive to light and accommodation. Conjunctivae without injection, sclerae without icterus. Extraocular movements intact. NOSE: Patent, turbinates without inflammation or discharge. MOUTH: Mucous membranes moist. Pharynx without erythema or exudate. Uvula midline. Airway patent. Tongue does not deviate. NECK: Supple without nuchal rigidity. No lymphadenopathy. No thyromegaly. Cervical spine is nontender. No JVD. HEART: Regular rate and rhythm LUNGS: Diffuse inspiratory and end expiratory wheezes, without rales or rhonchi. No retractions or accessory muscle use. ABDOMEN: Positive bowel sounds x 4. Normal tympanic percussion. Soft, n ontender, without masses or organomegaly. Figueroa sign negative. No guarding or rebound tenderness. No CVA tenderness MUSCULOSKELETAL: No muscle atrophy, erythema, or edema noted. NEURO: Patient was alert and oriented to person place and time. Normal sensation to light and sharp touch. No focal neurological deficits. Course Administered Medications Discontinued Medications Albuterol (Albut/Ipratrop 3mg/0.5mg Neb 3 Ml Vial) 3 ml NEB NOW STA; Protocol Stop: 03/05/22 23:50 Last Admin: 03/06/22 00:45 Dose: 3 ml Documented by: [id number] Dexamethasone Sodium Phosphate (DexamethasonePf 10 Mg/Ml Vial) 10 mg IV NOW ONE Stop: 03/05/22 23:50 Last Admin: 03/06/22 00:46 Dose: 10 mg Documented by: [id number] Sodium Chloride (Nss 1000ml) 1,000 mls @ 999 mls/hr IV .Q1H1M CHANELLE Stop: 03/05/22 23:45 Last Admin: 03/05/22 23:12 Dose: 999 mls/hr Documented by: [id number] Piperacillin Sod/Tazobactam Sod (Zosyn) 4.5 gm in 120 mls @ 240 mls/hr IV NOW ONE Stop: 03/05/22 23:06 Last Admin: 03/05/22 23:12 Dose: 240 mls/hr Documented by: [id number] Ioversol (Optiray 320 125ml) 103 ml IV ONCE ONE Stop: 03/06/22 00:32 Last Admin: 03/06/22 00:31 Dose: 103 ml Documented by: [id number] Medical Decision Making Medical Records Attestation: I reviewed the patient's medical records. Home Medications Current Medication List: was personally reviewed by me Laboratory Data Attestation: I reviewed the patient's lab results. Result diagrams: 03/05/22 22:46 03/05/22 22:46 Lab Results 03/05/22 03/05/22 03/05/22 Range/Units 22:25 22:32 22:46 WBC 14.09 H (4.8-10.8) K/uL RBC 4.33 L (4.7-6.1) M/uL Hgb 14.6 (14.0-18.0) g/dL POC Hgb (14.0-18.0) g/dl Hct 41.9 L (42-52) % POC Hct (42-52) % MCV 96.8 (80-100) fL MCH 33.7 (25-34) pg MCHC 34.8 (32-36) g/dL RDW Std Deviation 49.1 H (36.4-46.3) fL RDW Coeff of Ele 13.7 (11.5-14.5) % Plt Count 196 (130-400) K/uL MPV 11.1 H (7.4-10.4) fL Immature Gran % (Auto) 0.3 % Neut % (Auto) 76.5 % Lymph % (Auto) 11.4 % Cecil % (Auto) 7.9 % Eos % (Auto) 3.8 % Baso % (Auto) 0.1 % Neut # (Auto) 10.78 H (1.4-6.5) K/uL Lymph # (Auto) 1.60 (1.2-3.4) K/uL Cecil # (Auto) 1.11 H (0.11-0.59) K/uL Eos # (Auto) 0.54 H (0-0.5) K/uL Baso # (Auto) 0.02 (0-0.2) K/uL Immature Gran # (Auto) 0.04 H (0.00-0.02) K/uL PT (9.0-12.0) Seconds INR (0.9-1.1) APTT (21.0-31.0) Seconds PTT Ratio POC pH (7.35-7.45) POC pCO2 (35-46) mmHg POC pO2 (80-95) mmHg POC HCO3 (19-24) luis/L POC Total CO2 (24-31) mmol/L POC Base Excess (-9-1.8) luis/L POC ABG O2 Sat (90-95) % POC Sodium (135-144) mmol/L Sodium (136-145) mmol/L POC Potassium (3.3-5.0) mmol/L Potassium (3.5-5.1) mmol/L Chloride (98-107) mmol/L Carbon Dioxide (21-32) mmol/L Anion Gap (3-11) BUN (6-23) mg/dl Creatinine (0.6-1.4) mg/dl Est Cr Clr Drug Dosing ml/min Est GFR ( Amer) ml/min Est GFR (Non-Af Amer) ml/min BUN/Creatinine Ratio (10-20) Glucose (70-99(Fasting)) mg/dl Lactate (0.4-2.0) mmol/L Calcium (8.5-10.1) mg/dl Magnesium (1.7-2.4) mg/dl Total Bilirubin (0.2-1.0) mg/dl AST (13-39) U/L ALT (7-52) U/L Alkaline Phosphatase (34-104) U/L Troponin I High Sens (0-20) pg/ml Total Protein (6.0-8.3) gm/dl Albumin (3.4-5.0) gm/dl Globulin (2.5-4.0) gm/dl Albumin/Globulin Ratio (0.9-2) Urine Color Dark Yellow Urine Appearance Clear (Clear) Urine pH 5.0 (4.5-7.5) Ur Specific [place] 1.019 (1.000-1.030) Urine Protein 1+ H (Negative) Urine Glucose (UA) Negative (Negative) Urine Ketones Trace H (Negative) Urine Blood Negative (Negative) Urine Nitrite Negative (Negative) Urine Bilirubin 1+ H (Negative) Urine Urobilinogen Negative (Negative) Ur Leukocyte Esterase 1+ H (Negative) Urine WBC (Auto) 5-10 H (0-5) /hpf Urine RBC (Auto) 0-4 (0-4) /hpf U Hyaline Cast (Auto) 5-10 H (0-5) /lpf U Epithel Cells (Auto) >30 H (0-5) /lpf Urine Bacteria (Auto) Negative (Negative) Ur Renal Epithelial Cell Not Reportable Adenovirus (PCR) Not Detected (NotDetected) B. pertussis DNA (PCR) Not Detected (NotDetected) B.parapertussis DNA PCR Not Detected (NotDetected) C. pneumoniae DNA (PCR) Not Detected (NotDetected) Coronavirus OC43 (PCR) Not Detected (NotDetected) Coronavirus HKU1 (PCR) Not Detected (NotDetected) Coronavirus 229E (PCR) Not Detected (NotDetected) SARS-CoV-2 (PCR) Not Detected (NotDetected) Coronavirus NL63 (PCR) Not Detected (NotDetected) Human Metapneumovir PCR Not Detected (NotDetected) Influenza Type A (PCR) Not Detected (NotDetected) Influenza Type B (PCR) Not Detected (NotDetected) M. pneumoniae (PCR) Not Detected (NotDetected) Parainfluenza 1 (PCR) Not Detected (NotDetected) Parainfluenza 2 (PCR) Not Detected (NotDetected) Parainfluenza 3 (PCR) Not Detected (NotDetected) Parainfluenza 4 (PCR) Not Detected (NotDetected) RSV (PCR) Not Detected (NotDetected) Entero/Rhino (PCR) Not Detected (NotDetected) 03/05/22 03/05/22 03/05/22 Range/Units 22:46 22:46 22:55 WBC (4.8-10.8) K/uL RBC (4.7-6.1) M/uL Hgb (14.0-18.0) g/dL POC Hgb 13.9 L (14.0-18.0) g/dl Hct (42-52) % POC Hct 41 L (42-52) % MCV (80-100) fL MCH (25-34) pg MCHC (32-36) g/dL RDW Std Deviation (36.4-46.3) fL RDW Coeff of Ele (11.5-14.5) % Plt Count (130-400) K/uL MPV (7.4-10.4) fL Immature Gran % (Auto) % Neut % (Auto) % Lymph % (Auto) % Cecil % (Auto) % Eos % (Auto) % Baso % (Auto) % Neut # (Auto) (1.4-6.5) K/uL Lymph # (Auto) (1.2-3.4) K/uL Cecil # (Auto) (0.11-0.59) K/uL Eos # (Auto) (0-0.5) K/uL Baso # (Auto) (0-0.2) K/uL Immature Gran # (Auto) (0.00-0.02) K/uL PT 11.5 (9.0-12.0) Seconds INR 1.1 (0.9-1.1) APTT 39.5 H (21.0-31.0) Seconds PTT Ratio 1.4 POC pH 7.41 (7.35-7.45) POC pCO2 34 L (35-46) mmHg POC pO2 59 L (80-95) mmHg POC HCO3 22 (19-24) luis/L POC Total CO2 23 L (24-31) mmol/L POC Base Excess -3.0 (-9-1.8) luis/L POC ABG O2 Sat 91.0 (90-95) % POC Sodium 138 (135-144) mmol/L Sodium 139 (136-145) mmol/L POC Potassium 3.8 (3.3-5.0) mmol/L Potassium 4.0 (3.5-5.1) mmol/L Chloride 107 (98-107) mmol/L Carbon Dioxide 21 (21-32) mmol/L Anion Gap 11 (3-11) BUN 26 H (6-23) mg/dl Creatinine 1.46 H (0.6-1.4) mg/dl Est Cr Clr Drug Dosing 47.4 ml/min Est GFR ( Amer) 53.8 ml/min Est GFR (Non-Af Amer) 46.4 ml/min BUN/Creatinine Ratio 17.8 (10-20) Glucose 122 H (70-99(Fasting)) mg/dl Lactate (0.4-2.0) mmol/L Calcium 9.2 (8.5-10.1) mg/dl Magnesium 1.7 (1.7-2.4) mg/dl Total Bilirubin 1.0 (0.2-1.0) mg/dl AST 12 L (13-39) U/L ALT 15 (7-52) U/L Alkaline Phosphatase 81 (34-104) U/L Troponin I High Sens 7.3 (0-20) pg/ml Total Protein 6.6 (6.0-8.3) gm/dl Albumin 3.9 (3.4-5.0) gm/dl Globulin 2.7 (2.5-4.0) gm/dl Albumin/Globulin Ratio 1.4 (0.9-2) Urine Color Urine Appearance (Clear) Urine pH (4.5-7.5) Ur Specific [place] (1.000-1.030) Urine Protein (Negative) Urine Glucose (UA) (Negative) Urine Ketones (Negative) Urine Blood (Negative) Urine Nitrite (Negative) Urine Bilirubin (Negative) Urine Urobilinogen (Negative) Ur Leukocyte Esterase (Negative) Urine WBC (Auto) (0-5) /hpf Urine RBC (Auto) (0-4) /hpf U Hyaline Cast (Auto) (0-5) /lpf U Epithel Cells (Auto) (0-5) /lpf Urine Bacteria (Auto) (Negative) Ur Renal Epithelial Cell Adenovirus (PCR) (NotDetected) B. pertussis DNA (PCR) (NotDetected) B.parapertussis DNA PCR (NotDetected) C. pneumoniae DNA (PCR) (NotDetected) Coronavirus OC43 (PCR) (NotDetected) Coronavirus HKU1 (PCR) (NotDetected) Coronavirus 229E (PCR) (NotDetected) SARS-CoV-2 (PCR) (NotDetected) Coronavirus NL63 (PCR) (NotDetected) Human Metapneumovir PCR (NotDetected) Influenza Type A (PCR) (NotDetected) Influenza Type B (PCR) (NotDetected) M. pneumoniae (PCR) (NotDetected) Parainfluenza 1 (PCR) (NotDetected) Parainfluenza 2 (PCR) (NotDetected) Parainfluenza 3 (PCR) (NotDetected) Parainfluenza 4 (PCR) (NotDetected) RSV (PCR) (NotDetected) Entero/Rhino (PCR) (NotDetected) 03/05/22 Range/Units 22:58 WBC (4.8-10.8) K/uL RBC (4.7-6.1) M/uL Hgb (14.0-18.0) g/dL POC Hgb (14.0-18.0) g/dl Hct (42-52) % POC Hct (42-52) % MCV (80-100) fL MCH (25-34) pg MCHC (32-36) g/dL RDW Std Deviation (36.4-46.3) fL RDW Coeff of Ele (11.5-14.5) % Plt Count (130-400) K/uL MPV (7.4-10.4) fL Immature Gran % (Auto) % Neut % (Auto) % Lymph % (Auto) % Cecil % (Auto) % Eos % (Auto) % Baso % (Auto) % Neut # (Auto) (1.4-6.5) K/uL Lymph # (Auto) (1.2-3.4) K/uL Cecil # (Auto) (0.11-0.59) K/uL Eos # (Auto) (0-0.5) K/uL Baso # (Auto) (0-0.2) K/uL Immature Gran # (Auto) (0.00-0.02) K/uL PT (9.0-12.0) Seconds INR (0.9-1.1) APTT (21.0-31.0) Seconds PTT Ratio POC pH (7.35-7.45) POC pCO2 (35-46) mmHg POC pO2 (80-95) mmHg POC HCO3 (19-24) luis/L POC Total CO2 (24-31) mmol/L POC Base Excess (-9-1.8) luis/L POC ABG O2 Sat (90-95) % POC Sodium (135-144) mmol/L Sodium (136-145) mmol/L POC Potassium (3.3-5.0) mmol/L Potassium (3.5-5.1) mmol/L Chloride (98-107) mmol/L Carbon Dioxide (21-32) mmol/L Anion Gap (3-11) BUN (6-23) mg/dl Creatinine (0.6-1.4) mg/dl Est Cr Clr Drug Dosing ml/min Est GFR ( Amer) ml/min Est GFR (Non-Af Amer) ml/min BUN/Creatinine Ratio (10-20) Glucose (70-99(Fasting)) mg/dl Lactate 1.6 (0.4-2.0) mmol/L Calcium (8.5-10.1) mg/dl Magnesium (1.7-2.4) mg/dl Total Bilirubin (0.2-1.0) mg/dl AST (13-39) U/L ALT (7-52) U/L Alkaline Phosphatase (34-104) U/L Troponin I High Sens (0-20) pg/ml Total Protein (6.0-8.3) gm/dl Albumin (3.4-5.0) gm/dl Globulin (2.5-4.0) gm/dl Albumin/Globulin Ratio (0.9-2) Urine Color Urine Appearance (Clear) Urine pH (4.5-7.5) Ur Specific [place] (1.000-1.030) Urine Protein (Negative) Urine Glucose (UA) (Negative) Urine Ketones (Negative) Urine Blood (Negative) Urine Nitrite (Negative) Urine Bilirubin (Negative) Urine Urobilinogen (Negative) Ur Leukocyte Esterase (Negative) Urine WBC (Auto) (0-5) /hpf Urine RBC (Auto) (0-4) /hpf U Hyaline Cast (Auto) (0-5) /lpf U Epithel Cells (Auto) (0-5) /lpf Urine Bacteria (Auto) (Negative) Ur Renal Epithelial Cell Adenovirus (PCR) (NotDetected) B. pertussis DNA (PCR) (NotDetected) B.parapertussis DNA PCR (NotDetected) C. pneumoniae DNA (PCR) (NotDetected) Coronavirus OC43 (PCR) (NotDetected) Coronavirus HKU1 (PCR) (NotDetected) Coronavirus 229E (PCR) (NotDetected) SARS-CoV-2 (PCR) (NotDetected) Coronavirus NL63 (PCR) (NotDetected) Human Metapneumovir PCR (NotDetected) Influenza Type A (PCR) (NotDetected) Influenza Type B (PCR) (NotDetected) M. pneumoniae (PCR) (NotDetected) Parainfluenza 1 (PCR) (NotDetected) Parainfluenza 2 (PCR) (NotDetected) Parainfluenza 3 (PCR) (NotDetected) Parainfluenza 4 (PCR) (NotDetected) RSV (PCR) (NotDetected) Entero/Rhino (PCR) (NotDetected) Imaging Data Attestation: I personally reviewed and interpreted this imaging study as follows: Radiologist's Impression: Chest X-Ray 03/05/22 22:37 SINGLE VIEW CHEST CLINICAL HISTORY: Sepsis. FINDINGS: An AP, portable, upright chest radiograph is compared to study dated 07/29/2021 and correlated with chest CT dated 06/04/2011. The examination is degraded by portable technique and apical lordotic positioning. The cardiomediastinal silhouette is unremarkable noting atherosclerotic calcification of the thoracic aorta. Emphysema and chronic interstitial thickening is similar to previous. Mild airspace opacities are seen in the mid to lower lungs bilaterally. No large pleural effusion or pneumothorax is identified. The skeletal structures are osteopenic. There are healed right-sided rib fractures. IMPRESSION: 1. Mild airspace opacities are seen in the mid to lower lungs bilaterally. Correlate clinically for evidence of an infectious/inflammatory pneumonitis. Radiographic follow-up to resolution is recommended. 2. Emphysema. ACT 112: Negative or not required by law. Electronically signed by: Chirag Woodruff M.D. 03/05/2022 11:34 PM Chest CTA 03/05/22 22:39 CT ANGIOGRAM OF THE CHEST CLINICAL HISTORY: Cough. Generalized weakness. COMPARISON STUDY: Chest x-ray dated 03/05/2022. Chest CT dated 06/04/2011. TECHNIQUE: Following the IV administration of 103 cc of Optiray 320, CT angiogram of the chest was performed from the upper abdomen to the thoracic inlet utilizing the pulmonary embolus protocol. Images are reviewed in the axial, sagittal, and coronal planes. 3-D MIPS images are created and assessed. IV contrast was administered without complication. A dose lowering technique was utilized adhering to the principles of ALARA. The examination is modestly degraded by motion artifact. CT DOSE: 550.01 mGy.cm FINDINGS: Thyroid: Imaged portions of the thyroid gland are normal in size and attenuation. Thoracic aorta: There is atherosclerotic calcification of the thoracic aorta, which is normal in caliber and demonstrates standard 3-vessel arch anatomy. No dissection is seen. Pulmonary vasculature: The pulmonary trunk is normal in caliber. There are no filling defects identified in main, lobar, or segmental pulmonary branches to suggest pulmonary embolus. Heart: The heart is mildly enlarged noting trace pericardial effusion. The coronary arteries are densely calcified. Lungs and pleural spaces: Emphysematous change is noted. There is diffuse intral obular septal thickening. Mild groundglass opacities are seen in the lower lobes. There are trace pleural effusions with dependent atelectasis. A 1.4 cm irregular nodule is seen in the left lower lobe in image #157. Mediastinum: Mildly enlarged mediastinal lymph nodes measure up to 16 mm in short axis. Christina: Enlarged bilateral hilar nodes measure up to 14 mm in short axis. Axillae: There is no axillary lymphadenopathy. Upper abdomen: Right renal cysts are partially visualized and measures up to 3 cm. A nonobstructing calculus is seen in the right upper pole. A tiny hiatal hernia is noted. Skeletal structures: The skeletal structures are heterogeneously osteopenic. Degenerative change is noted in the shoulders and thoracic spine. There are healed right-sided rib fractures there No lytic or blastic bony lesions are seen. IMPRESSION: 1. There is no evidence of pulmonary embolus in the main, lobar, or segmental pulmonary arteries. 2. Cardiomegaly and emphysema with evidence of congestive failure. 3. Groundglass opacities likely represent mild pulmonary edema. 4. Trace pleural effusions. 5. Mildly enlarged mediastinal and hilar lymph nodes are nonspecific and may be reactive. 6. A 1.4 cm irregular pulmonary nodule is seen in the left lower lobe. This is indeterminant and may be inflammatory. A 3 month follow-up chest CT is recommended for reassessment. 7. Additional findings as above. ACT 112: Positive. There are findings on this exam that require communication between the performing entity and the patient following Patient Test Result Information Act ([place] Act 112) guidelines. Electronically signed by: Cihrag Woodruff M.D. 03/06/2022 12:39 AM MDM Narrative Prior records/ancillary studies reviewed. Triage Nursing notes reviewed. Additional history obtained from nurse. The patient's history was concerning for fever cough and congestion. Differential diagnosis: Etiologies such as sepsis, UTI, pneumonia, metabolic, electrolyte abnormalities, cardiac sources, intracerebral event, toxicologic, neurologic, as well as others were entertained. Physical examination: As above. Pertinent findings were hypoxic on room air. Vital signs reviewed and revealed hypoxic on room air. ER treatment provided: IV fluid resuscitation with Normal saline solution, 1000 mL bolus. Steroids, antibiotic Blood and urine cultures Antibiotics: Zosyn Nebulizer An order was placed for continuous cardiac monitoring. The monitor shows a rate of 60-1 50 with a sinus rhythm. On reassessment the patient vital signs improved. Diagnostics interpretation by me: ECG: Ordered for dyspnea EKG: Normal sinus, normal intervals, no acute ST-T wave changes. Impression normal sinus rhythm interpreted by myself I think arrhythmia is unlikely. EKG shows normal sinus rhythm with no interval abnormalities such as QT prolongation or WPW. There are no findings to suggest Brugada syndrome. Cardiac monitoring in the emergency department reveals no tachycardic or bradycardic dysrhythmia. Hypertrophic cardiomyopathy was considered but there are no clear historical elements pointing toward this. EKG is not suggestive. The QRS voltage is not extremely large and there are no suggestive Q waves. The labs revealed leukocytosis on CBC. Chemistry panel revealed creatinine 1.46 LFTs revealed. Cardiac enzymes were negative. Serum Lactate measurement was 1.6. Blood and urine cultures are pending. Imaging studies: As above Consultation: A consultation was placed with the hospitalist. The case was discussed and di agnostics were reviewed. The patient was evaluated in the ER for further treatment. Exam and history seem consistent with pneumonia with low off oxygen. Patient was medicated as above. He was on antibiotics. Medicine was consulted. He will be admitted. Impression & Plan Pneumonia, Hypoxic, Hypomagnesemia Discharge Plan Visit Data Chief Complaint: Fever Stated Complaint: FEVER, CHILLS, WEAKNESS, COUGH ED Provider: [facility] ED Midlevel Provider: Catarina Estrella Discharge Problem: Pneumonia, Hypoxic, Hypomagnesemia Patient Disposition: Admitted As Inpatient Condition: Fair Forms Stand Alone Forms: My [facility] Prescriptions Prescriptions: No Action doxycycline hyclate 100 mg tablet 100 mg PO BID 7 Days Qty: 14 RF: 0 amlodipine 10 mg tablet 5 mg PO QAM RF: 0 metformin 500 mg tablet 500 mg PO BIDM RF: 0 atorvastatin 80 mg tablet 80 mg PO HS RF: 0 isosorbide mononitrate 30 mg tablet extended release 24 hr 30 mg PO QAM RF: 0 cyanocobalamin (vitamin B-12) [Vitamin B-12] 1,000 mcg Tablet 1,000 mcg PO QAM RF: 0 aspirin [Aspir-81] 81 mg Tablet,Delayed Release (Dr/Ec) 81 mg PO QAM RF: 0 tamsulosin 0.4 mg capsule 0.4 mg PO QAM RF: 0 metoprolol tartrate 50 mg tablet 50 mg PO BID RF: 0 nitroglycerin [Nitrostat] 0.4 mg Tablet, Sublingual 0.4 mg sublingual DIRECTED PRN (Reason: Chest Pain) RF: 0 epinephrine 0.3 mg/0.3 mL auto-injector 0.3 mg IM DIRECTED PRN (Reason: Allergic Reaction) RF: 0 cholecalciferol (vitamin D3) [Vitamin D3] 25 mcg (1,000 unit) Capsule 2,000 unit PO QAM RF: 0 garlic 500 mg Capsule 500 mg PO QAM RF: 0 oxycodone 5 mg tablet 5 - 10 mg PO Q4H PRN (Reason: pain) Qty: 14 RF: 0 ondansetron 4 mg tablet,disintegrating 4 mg PO Q4H PRN (Reason: nausea and vomiting) Qty: 8 RF: 0 hydrocodone-acetaminophen 5-325 mg tablet 1 tab PO Q6H PRN (Reason: pain) Qty: 10 RF: 0 Referrals Referrals: Loretta Treviño MD [Primary Care Provider] - Discharge Problem: Pneumonia Qualifiers: Pneumonia type: due to unspecified organism Laterality: bilateral Lung location: unspecified part of lung Qualified Code(s): J18.9 - Pneumonia, unspecified organism
[2022-03-06] MEDS: MAGNESIUM SULFATE / D5W 1 GM/100 ML BAG IV SCH ×2 (01:06→02:44)
--- NOTE | 2022-03-06 03:41 | History & Physical Report ---
Date of Service March 06, 2022 Assessment & Plan (1) Acute hypoxemic respiratory failure: Plan: Multifactorial : COPD exacerbation. No overt sepsis for now Pulmonary edema on CT imaging hx coronary artery disease s/p stent PAF, patient NSR, not on anticoagulation as per patient preference as per records hx PVD hypertension, slight elevated hyperlipidemia on statin Rx ARF secondary to illness DM2 on oral medications, well-controlled as of recent hemoglobin A1c of 6.02 January 2022 Recurrent UTIs status post recent antibiotic Rx, bladder cancer status post surgery/BPH ongoing tobacco abuse PCU Supplemental O2 Nebs RTC, prednisone course for COPD exacerbation No indication for antibiotics currently. Lasix albumin 1 dose now TTE Re: CHF May need Cardiology evaluation pending TTE results Follow renal function Basal bolus insulin, ISS BG goal 1 10-1 40, carb count coverage Nicotine patch as needed DVT prophylaxis. Heparin subcu Full code Total critical care time was 45 minutes. Text document was generated using [employer] voice recognition software. It may contain grammatical or spelling errors. Kindly contact undersigned for clarification of any documentation item in question. History of Present Illness Chief Complaint: Cough, shortness of breath Primary Care Provider: Loretta Treviño MD History obtained from patient and records. Medical history significant for coronary artery disease s/p stent , PAF not on anticoagulation as per patient preference, PVD, hypertension, hyperlipidemia, DM2 on oral medications, COPD, ongoing tobacco abuse, bladder cancer status post surgery, history of BPH, recurrent UTIs. Last confinement 2016 under Cardiology service for abnormal nuclear stress test. Patient found to have CAD on cardiac cath status post stent placement to the ramus intermedius, chronic total occlusion of RCA. Patient recently completed antibiotic Rx for UTI. Outpatient urine CS negative. Yesterday, patient had sudden onset of fever, chills, cough productive of clear sputum. Worsening shortness of breath without chest pain or fluid retention. No known sick contacts. Patient completed COVID-19 vaccination. O2 sats noted to be 80s at the ER. Patient received Decadron, neb treatment, and Zosyn at the ER MEDICAL HISTORY: As above. SURGERIES: He had back surgery x 2 and bladder surgery, cystoscopy, small bladder tumor removal FAMILY HISTORY: Heart disease, DM SOCIAL HISTORY: 3/4 pack daily. 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 Allergies Allergy/AdvReac Type Severity Reaction Status Date / Time bee venom protein (honey bee) Allergy Severe ANAPHYLAXIS Verified 02/08/22 09:33 cephalexin [From Keflex] Allergy Unknown CAN'T Verified 02/08/22 09:33 MD CHIDI ADDED TO LIST Home Medications Medication Instructions Recorded Confirmed Type aspirin 81 mg tablet,delayed 81 mg PO QAM 04/22/20 02/08/22 History release (Aspir-) atorvastatin 80 mg tablet 80 mg PO HS 04/22/20 02/08/22 History cholecalciferol (vitamin D3) 25 2,000 unit PO QAM 04/22/20 02/08/22 History mcg (1,000 unit) capsule (Vitamin D3) cyanocobalamin (vitamin B-12) 1,000 mcg PO QAM 04/22/20 02/08/22 History 1,000 mcg tablet (Vitamin B-12) epinephrine 0.3 mg/0.3 mL 0.3 mg IM DIRECTED PRN 04/22/20 02/08/22 History injection, auto-injector isosorbide mononitrate 30 mg 30 mg PO QAM 04/22/20 02/08/22 History tablet,extended release 24 hr metformin 500 mg tablet 500 mg PO BIDM 04/22/20 02/08/22 History metoprolol tartrate 50 mg tablet 50 mg PO BID 04/22/20 02/08/22 History nitroglycerin 0.4 mg sublingual 0.4 mg SUBLINGUAL DIRECTED PRN 04/22/20 02/08/22 History tablet (Nitrostat) tamsulosin 0.4 mg capsule 0.4 mg PO QAM 04/22/20 02/08/22 History garlic 500 mg capsule 500 mg PO QAM 04/24/20 02/08/22 History amlodipine 10 mg tablet 5 mg PO QAM 05/12/20 02/08/22 History ondansetron 4 mg disintegrating 4 mg PO Q4H PRN #8 tab 07/20/21 02/08/22 Rx tablet Advair Diskus 1 puff INHALATION BID 03/06/22 03/06/22 History Past Med/Surg History Medical History Abdominal aneurysm 3.2 cm intrarenal AAA, monitor yearly> just had US this am, has not gotten results yet> [facility] Bladder cancer S/P surgery BPH (benign prostatic hyperplasia) CAD (coronary artery disease) follows with Laura COPD (chronic obstructive pulmonary disease) pt unaware > no inhalers Diabetes mellitus, type II NIDDM Gout attack resolved HTN (hypertension) Hyperlipidemia Kidney stone Melanoma Mohs x2 Myocardial Infarction 1996 > dc'ed with thinner Paroxysmal atrial fibrillation 2010 had episode after back surgery and no problems since. follow with Dr. Carroll/ [facility] Surgical History History of cardiac cath 2017 > 1 STENT > [facility] History of lithotripsy recent--08/21/21 @ [place] History of lumbar spinal fusion 2010 1968 History of tooth extraction Hx of colonoscopy Family History Father Diabetes Grandmother (Paternal) Diabetes Other Cancer Coronary heart disease Hypertension Social History Smoking Status: Current every day smoker Tobacco Type: Cigarettes Cigarettes Per Day: 15; Second Hand Exposure: No; Hx Alcohol Use: Yes Alcohol type: beer Hx Substance Use: No Preferred Language: [place] Communication Ability: Effective Bottle Gauger Required: No Beliefs That Will Affect Care: None marital status: Current Living Situation: Spouse Other Information That Helps Us Care for You: No Feels Safe at Home: Yes Safety Concerns: Feels Safe At This Time Assistive Devices: Denture - Upper, Denture - Lower and Glasses Review of Systems Review of Systems: As per HPI, all other systems reviewed and negative Physical Exam Physical Exam: GENERAL: Comfortable, pleasant, no respiratory distress SKIN: Normal color, warm HEENT: Bespectacled, pink palpebral conjunctivae, no ptosis, dry buccal mucosa, O2 mask in place NECK : Supple, no tenderness CHEST : Decreased breath sounds, expiratory wheezes no tenderness HEART : RRR, no obvious murmurs ABDOMEN: Some distention, nontender EXTREMITIES : No LE swelling/tenderness, no other conspicuous deformities noted NEUROLOGIC : Coherent, no facial asymmetry, no other gross focality Results & Data Results & Data ([facility]) Vital Signs (Past 12 Hours) Vital Signs Temp Pulse Pulse Resp BP BP Pulse Ox 03/06/22 02:45 70 23 116/58 L 91 06/04/22 02:30 68 24 119/61 91 03/06/22 02:00 68 24 117/55 L 90 03/06/22 01:30 73 16 92 03/06/22 01:15 76 21 131/64 91 03/06/22 01:00 74 26 H 119/58 L 92 03/06/22 00:45 75 26 H 116/54 L 90 03/06/22 00:35 83 79 26 H 137/52 L 137/52 L 86 L 03/06/22 00:15 69 19 117/66 91 03/06/22 00:00 67 25 H 125/60 91 03/05/22 23:45 70 24 125/73 90 03/05/22 23:30 75 22 132/56 L 91 03/05/22 23:05 72 20 113/56 L 90 03/05/22 23:00 79 25 H 109/68 91 03/05/22 22:58 77 13 115/70 91 03/05/22 22:37 20 91 03/05/22 22:03 37.3 C 87 18 112/60 88 L Laboratory Results Laboratory Results WBC 10.69 K/uL (4.8-10.8) 03/06/22 06:09 RBC 4.43 M/uL (4.7-6.1) L 03/06/22 06:09 Hgb 14.2 g/dL (14.0-18.0) 03/06/22 06:09 POC Hgb 13.9 g/dl (14.0-18.0) L 03/05/22 22:55 Hct 42.3 % (42-52) 03/06/22 06:09 POC Hct 41 % (42-52) L 03/05/22 22:55 MCV 95.5 fL (80-100) 03/06/22 06:09 MCH 32.1 pg (25-34) 03/06/22 06:09 MCHC 33.6 g/dL (32-36) 03/06/22 06:09 RDW Std Deviation 48.0 fL (36.4-46.3) H 03/06/22 06:09 RDW Coeff of Ele 13.8 % (11.5-14.5) 03/06/22 06:09 Plt Count 191 K/uL (130-400) 03/06/22 06:09 MPV 11.2 fL (7.4-10.4) H 03/06/22 06:09 Immature Gran % (Auto) 0.2 % 03/06/22 06:09 Neut % (Auto) 88.5 % 03/06/22 06:09 Lymph % (Auto) 8.7 % 03/06/22 06:09 [place] % (Auto) 1.4 % 03/06/22 06:09 Eos % (Auto) 1.0 % 03/06/22 06:09 Baso % (Auto) 0.2 % 03/06/22 06:09 Neut # (Auto) 9.46 K/uL (1.4-6.5) H 03/06/22 06:09 Lymph # (Auto) 0.93 K/uL (1.2-3.4) L 03/06/22 06:09 [place] # (Auto) 0.15 K/uL (0.11-0.59) 03/06/22 06:09 Eos # (Auto) 0.11 K/uL (0-0.5) 03/06/22 06:09 Baso # (Auto) 0.02 K/uL (0-0.2) 03/06/22 06:09 Immature Gran # (Auto) 0.02 K/uL (0.00-0.02) 03/06/22 06:09 PT 11.5 Seconds (9.0-12.0) 03/05/22 22:46 INR 1.1 (0.9-1.1) 03/05/22 22:46 APTT 39.5 Seconds (21.0-31.0) H 03/05/22 22:46 PTT Ratio 1.4 03/05/22 22:46 POC pH 7.41 (7.35-7.45) 03/05/22 22:55 POC pCO2 34 mmHg (35-46) L 03/05/22 22:55 POC pO2 59 mmHg (80-95) L 03/05/22 22:55 POC HCO3 22 luis/L (19-24) 03/05/22 22:55 POC Total CO2 23 mmol/L (24-31) L 03/05/22 22:55 POC Base Excess -3.0 luis/L (-9-1.8) 03/05/22 22:55 POC ABG O2 Sat 91.0 % (90-95) 03/05/22 22:55 POC Sodium 138 mmol/L (135-144) 03/05/22 22:55 Sodium 138 mmol/L (136-145) 03/06/22 06:09 POC Potassium 3.8 mmol/L (3.3-5.0) 03/05/22 22:55 Potassium 4.0 mmol/L (3.5-5.1) 03/06/22 06:09 Chloride 106 mmol/L (98-107) 03/06/22 06:09 Carbon Dioxide 22 mmol/L (21-32) 03/06/22 06:09 Anion Gap 10 (3-11) 03/06/22 06:09 BUN 24 mg/dl (6-23) H 03/06/22 06:09 Creatinine 1.32 mg/dl (0.6-1.4) 03/06/22 06:09 Est Cr Clr Drug Dosing 52.2 ml/min 03/06/22 06:09 Est GFR ( Amer) 60.7 ml/min 03/06/22 06:09 Est GFR (Non-Af Amer) 52.4 ml/min 03/06/22 06:09 BUN/Creatinine Ratio 18.2 (10-20) 03/06/22 06:09 Glucose 161 mg/dl (70-99(Fasting)) H 03/06/22 06:09 POC Glucose 182 mg/dl (70-99) H 03/06/22 16:18 Lactate 1.6 mmol/L (0.4-2.0) 03/05/22 22:58 Calcium 9.2 mg/dl (8.5-10.1) 03/06/22 06:09 Magnesium 1.7 mg/dl (1.7-2.4) 03/05/22 22:46 Total Bilirubin 1.0 mg/dl (0.2-1.0) 03/05/22 22:46 AST 12 U/L (13-39) L 03/05/22 22:46 ALT 15 U/L (7-52) 03/05/22 22:46 Alkaline Phosphatase 81 U/L (34-104) 03/05/22 22:46 Troponin I High Sens 7.3 pg/ml (0-20) 03/05/22 22:46 B-Natriuretic Peptide 145 pg/ml (0-100) H 03/06/22 09:28 Total Protein 6.6 gm/dl (6.0-8.3) 03/05/22 22:46 Albumin 3.9 gm/dl (3.4-5.0) 03/05/22 22:46 Globulin 2.7 gm/dl (2.5-4.0) 03/05/22 22: Albumin/Globulin Ratio 1.4 (0.9-2) 03/05/22 22:46 Procalcitonin 0.10 ng/ml (0-0.5) 03/06/22 09:28 Urine Color Dark Yellow 03/05/22 22: Urine Appearance Clear (Clear) 03/05/22 22: Urine pH 5.0 (4.5-7.5) 03/05/22 22:25 Ur Specific [place] 1.019 (1.000-1.030) 03/05/22 22:25 Urine Protein 1+ (Negative) H 03/05/22 22:25 Urine Glucose (UA) Negative (Negative) 03/05/22 22:25 Urine Ketones Trace (Negative) H 03/05/22 22:25 Urine Blood Negative (Negative) 03/05/22 22: Urine Nitrite Negative (Negative) 03/05/22 22:25 Urine Bilirubin 1+ (Negative) H 03/05/22 22:25 Urine Urobilinogen Negative (Negative) 03/05/22 22:25 Ur Leukocyte Esterase 1+ (Negative) H 03/05/22 22:25 Urine WBC (Auto) 5-10 /hpf (0-5) H 03/05/22 22:25 Urine RBC (Auto) 0-4 /hpf (0-4) 03/05/22 22:25 U Hyaline Cast (Auto) 5-10 /lpf (0-5) H 03/05/22 22:25 U Epithel Cells (Auto) >30 /lpf (0-5) H 03/05/22 22:25 Urine Bacteria (Auto) Negative (Negative) 03/05/22 22:25 Ur Renal Epithelial Cell Not Reportable 03/05/22 22:25 Adenovirus (PCR) Not Detected (NotDetected) 03/05/22 22:32 B. pertussis DNA (PCR) Not Detected (NotDetected) 03/05/22 22:32 B.parapertussis DNA PCR Not Detected (NotDetected) 03/05/22 22:32 C. pneumoniae DNA (PCR) Not Detected (NotDetected) 03/05/22 22:32 Coronavirus OC43 (PCR) Not Detected (NotDetected) 03/05/22 22:32 Coronavirus HKU1 (PCR) Not Detected (NotDetected) 03/05/22 22:32 Coronavirus 229E (PCR) Not Detected (NotDetected) 03/05/22 22:32 SARS-CoV-2 (PCR) Not Detected (NotDetected) 03/05/22 22:32 Coronavirus NL63 (PCR) Not Detected (NotDetected) 03/05/22 22:32 Human Metapneumovir PCR Not Detected (NotDetected) 03/05/22 22:32 Influenza Type A (PCR) Not Detected (NotDetected) 03/05/22 22:32 Influenza Type B (PCR) Not Detected (NotDetected) 03/05/22 22:32 M. pneumoniae (PCR) Not Detected (NotDetected) 03/05/22 22:32 Parainfluenza 1 (PCR) Not Detected (NotDetected) 03/05/22 22:32 Parainfluenza 2 (PCR) Not Detected (NotDetected) 03/05/22 22:32 Parainfluenza 3 (PCR) Not Detected (NotDetected) 03/05/22 22:32 Parainfluenza 4 (PCR) Not Detected (NotDetected) 03/05/22 22:32 RSV (PCR) Not Detected (NotDetected) 03/05/22 22:32 Entero/Rhino (PCR) Not Detected (NotDetected) 03/05/22 22:32 Impressions Chest X-Ray 03/05/22 22:37 SINGLE VIEW CHEST CLINICAL HISTORY: Sepsis. FINDINGS: An AP, portable, upright chest radiograph is compared to study dated 07/29/2021 and correlated with chest CT dated 06/04/2011. The examination is deg raded by portable technique and apical lordotic positioning. The cardiomediastinal silhouette is unremarkable noting atherosclerotic calcification of the thoracic aorta. Emphysema and chronic interstitial thickening is similar to previous. Mild airspace opacities are seen in the mid to lower lungs bilaterally. No large pleural effusion or pneumothorax is identified. The skeletal structures are osteopenic. There are healed right-sided rib fractures. IMPRESSION: 1. Mild airspace opacities are seen in the mid to lower lungs bilaterally. Correlate clinically for evidence of an infectious/inflammatory pneumonitis. Radiographic follow-up to resolution is recommended. 2. Emphysema. ACT 112: Negative or not required by law. Electronically signed by: Chirag Woodruff M.D. 03/05/2022 11:34 PM Chest CTA 03/05/22 22:39 CT ANGIOGRAM OF THE CHEST CLINICAL HISTORY: Cough. Generalized weakness. COMPARISON STUDY: Chest x-ray dated 03/05/2022. Chest CT dated 06/04/2011. TECHNIQUE: Following the IV administration of 103 cc of Optiray 320, CT angiogram of the chest was performed from the upper abdomen to the thoracic inlet utilizing the pulmonary embolus protocol. Images are reviewed in the axial, sagittal, and coronal planes. 3-D MIPS images are created and assessed. IV contrast was administered without complication. A dose lowering technique was utilized adhering to the principles of ALARA. The examination is modestly degraded by motion artifact. CT DOSE: 550.01 mGy.cm FINDINGS: Thyroid: Imaged portions of the thyroid gland are normal in size and attenuation. Thoracic aorta: There is atherosclerotic calcification of the thoracic aorta, which is normal in caliber and demonstrates standard 3-vessel arch anatomy. No dissection is seen. Pulmonary vasculature: The pulmonary trunk is normal in caliber. There are no filling defects identified in main, lobar, or segmental pulmonary branches to suggest pulmonary embolus. Heart: The heart is mildly enlarged noting trace pericardial effusion. The coronary arteries are densely calcified. Lungs and pleural spaces: Emphysematous change is noted. There is diffuse intralobular septal thickening. Mild groundglass opacities are seen in the lower lobes. There are trace pleural effusions with dependent atelectasis. A 1.4 cm irregular nodule is seen in the left lower lobe in image #157. Mediastinum: Mildly enlarged mediastinal lymph nodes measure up to 16 mm in short axis. Christina: Enlarged bilateral hilar nodes measure up to 14 mm in short axis. Axillae: There is no axillary lymphadenopathy. Upper abdomen: Right renal cysts are partially visualized and measures up to 3 cm. A nonobstructing calculus is seen in the right upper pole. A tiny hiatal hernia is noted. Skeletal structures: The skeletal structures are heterogeneously osteopenic. Degenerative change is noted in the shoulders and thoracic spine. There are healed right-sided rib fractures there No lytic or blastic bony lesions are seen. IMPRESSION: 1. There is no evidence of pulmonary embolus in the main, lobar, or segmental pulmonary arteries. 2. Cardiomegaly and emphysema with evidence of congestive failure. 3. Groundglass opacities likely represent mild pulmonary edema. 4. Trace pleural effusions. 5. Mildly enlarged mediastinal and hilar lymph nodes are nonspecific and may be reactive. 6. A 1.4 cm irregular pulmonary nodule is seen in the left lower lobe. This is indeterminant and may be inflammatory. A 3 month follow-up chest CT is recommended for reassessment. 7. Additional findings as above. ACT 112: Positive. There are findings on this exam that require communication between the performing entity and the patient following Patient Test Result Information Act ([place] Act 112) guidelines. Electronically signed by: Chirag Woodruff M.D. 03/06/2022 12:39 AM Diagnostic Findings EKG as per my interpretation:Rate 70, NSR, normal axis, T wave flattening inferior leads
[2022-03-06] MEDS ORDERED: FUROSEMIDE INJ 20 MG/2 ML VIAL IV STA (03:43)
[2022-03-06] MEDS ORDERED: INSULIN GLARGINE SOLOSTAR 100 UNITS/ML 3 ML PEN SC STA (04:14)
[2022-03-06] MEDS ORDERED: GLUCOSE 10 TABS/TUBE PO PRN (04:14)
[2022-03-06] MEDS ORDERED: CARBOHYDRATES FOR HYPOGLYCEMIA PO PRN (04:14)
[2022-03-06] MEDS ORDERED: ALBUMIN 25% 12.5 GM/50 ML VIAL IV ONE ×2 (04:14→05:30)
[2022-03-06] MEDS ORDERED: GLUCOSE 40% GEL 15 GM TUBE PO PRN (04:14)
[2022-03-06] MEDS ORDERED: DEXTROSE 50% 50 ML SYRINGE IV PRN (04:14)
[2022-03-06] MEDS ORDERED: GLUCAGON FOR INJ 1 MG VIAL SQ PRN (04:14)
[2022-03-06] MEDS ORDERED: oxyCODONE HCL IR 5 MG TAB (IMMEDIATE RELEASE) PO PRN (05:14)
[2022-03-06] MEDS ORDERED: ACETAMINOPHEN 325 MG TAB PO PRN (05:14)
[2022-03-06] MEDS: HEPARIN SOD 5,000 UNIT/0.5 ML VIAL SQ SCH ×3 (06:02→21:05)
[2022-03-06] MEDS: INSULIN ASPART PER UNIT SC SCH ×4 (06:02→20:39)
[2022-03-06 07:00] LABS: Basophils # (auto) 0.02 K/uL (0-0.2); Basophils % (auto) 0.2 %; Eosinophils # (auto) 0.11 K/uL (0-0.5); Hematocrit (blood only) 42.3 % (42-52); Hemoglobin 14.2 g/dL (14.0-18.0); Immature Granulocytes # (auto) 0.02 K/uL (0.00-0.02); Immature Granulocytes % (auto) 0.2 %; Lymphocytes # (auto) 0.93 K/uL (1.2-3.4); Lymphocytes % (auto) 8.7 %; Mean Corpuscular Hemoglobin 32.1 pg (25-34); Mean Corpuscular Hgb Conc 33.6 g/dL (32-36); Mean Corpuscular Volume 95.5 fL (80-100); Mean Platelet Volume 11.2 fL (7.4-10.4); Monocytes # (auto) 0.15 K/uL (0.11-0.59); Monocytes % (auto) 1.4 %; Neutrophils # (auto) 9.46 K/uL (1.4-6.5); Neutrophils % (auto) 88.5 %; Platelet Count 191 K/uL (130-400); RDW Coefficient of Variation 13.8 % (11.5-14.5); Red Blood Count 4.43 M/uL (4.7-6.1); White Blood Count 10.69 K/uL (4.8-10.8)
[2022-03-06] MEDS ORDERED: XOPENEX/ATROVENT 1.25mg/0.5MG NEB COMBO NEB SCH (07:00)
[2022-03-06 07:48] LABS: Calcium 9.2 mg/dl (8.5-10.1)
[2022-03-06 07:54] LABS: BUN Creatinine Ratio 18.2 (10-20); Creatinine Clr Calc Pharmacy 52.2 ml/min; Est GFR (African American) 60.7 ml/min; Est GFR (Non-African American) 52.4 ml/min
[2022-03-06] MEDS: IPRATROPIUM BROMIDE NEB SOLN 0.02% 2.5 ML VIAL INH SCH ×3 (08:02→20:32)
[2022-03-06] MEDS: LEVALBUTEROL 1.25MG/0.5ML NEB INH SCH ×3 (08:02→20:32)
[2022-03-06] MEDS: METOPROLOL TARTRATE 50 MG TAB PO SCH ×2 (08:22→20:01)
[2022-03-06] MEDS: FLUTICASONE/VILANTEROL 100/25MCG 14 PUFFS/INHALER INH SCH (08:22)
[2022-03-06] MEDS: amLODIPine BESYLATE 5 MG TAB PO SCH (08:23)
[2022-03-06] MEDS: TAMSULOSIN HCL 0.4 MG CAP PO SCH (08:23)
[2022-03-06] MEDS: ASPIRIN 81 MG ECTAB PO SCH (08:23)
[2022-03-06] MEDS: CYANOCOBALAMIN (B-12) 500 MCG TABLET PO SCH (08:23)
[2022-03-06] MEDS: ISOSORBIDE MONO EXTENDED REL 30 MG TABCR PO SCH (08:23)
[2022-03-06] MEDS: PIPERACILLIN/TAZOBACTAM 3.375 GM in DEXTROSE 5% 100 ML IV SCH ×2 (10:25→17:04)
[2022-03-06] MEDS: DOXYCYCLINE HYCLATE 100 MG CAP PO SCH ×2 (10:25→20:00)
[2022-03-06] MEDS: FUROSEMIDE 40 MG/4 ML VIAL IV SCH (12:06)
--- NOTE | 2022-03-06 17:57 | Hospitalist Progress Note ---
Date of Service March 06, 2022 Assessment & Plan Admission and Anticipated Discharge Date Admission Date: March 06, 2022 Subjective Mr Farr was admitted today due to fever and cough yesterday. Patient was evaluated in his room, chart was reviewed. He feels his breathing is much improved and his oxygen has been weaned down to 2L NC He is asking when he can go home. BNP noted to be elevated, Procalcitonin normal. He is on IV lasix, zosyn and doxycycline for possible pneumonia as well as steroids and nebulizer treatments. Will continue with current management and re-assess clinical status tomorrow. His current presentation most consistent with CHF and/or reactive airway disease. If his breathing is back to baseline and he is stable on room air, we can discharge home in morning. Results & Data Results & Data ([facility]) Vital Signs (Past 12 Hours) Vital Signs Temp Pulse Pulse Resp BP BP Pulse Ox 03/06/22 17:05 92 03/06/22 15:48 71 03/06/22 15:17 36.7 C 83 16 115/64 95 03/06/22 13:27 84 18 94 03/06/22 12:51 36.6 C 78 20 152/67 H 96 03/06/22 08:40 36.7 C 89 18 148/77 H 95 03/06/22 08:02 77 18 90 03/06/22 06:40 65
[2022-03-06] MEDS ORDERED: ATORVASTATIN 40 MG TAB PO SCH (21:00)
[2022-03-07] MEDS: LEVALBUTEROL 1.25MG/0.5ML NEB INH SCH ×3 (01:08→12:41)
[2022-03-07] MEDS: IPRATROPIUM BROMIDE NEB SOLN 0.02% 2.5 ML VIAL INH SCH ×3 (01:08→12:41)
[2022-03-07] MEDS: PIPERACILLIN/TAZOBACTAM 3.375 GM in DEXTROSE 5% 100 ML IV SCH ×2 (01:53→09:05)
[2022-03-07] MEDS: HEPARIN SOD 5,000 UNIT/0.5 ML VIAL SQ SCH (05:27)
[2022-03-07 06:40] LABS: Hematocrit (blood only) 39.5 % (42-52); Hemoglobin 13.7 g/dL (14.0-18.0); Mean Corpuscular Hemoglobin 33.2 pg (25-34); Mean Corpuscular Hgb Conc 34.7 g/dL (32-36); Mean Corpuscular Volume 95.6 fL (80-100); Mean Platelet Volume 11.3 fL (7.4-10.4); Platelet Count 190 K/uL (130-400); RDW Coefficient of Variation 13.3 % (11.5-14.5); RDW Standard Deviation 46.8 fL (36.4-46.3); Red Blood Count 4.13 M/uL (4.7-6.1); White Blood Count 17.99 K/uL (4.8-10.8)
[2022-03-07 07:07] LABS: Creatinine Clr Calc Pharmacy 52.2 ml/min; Est GFR (African American) 61.3 ml/min; Est GFR (Non-African American) 52.9 ml/min; Magnesium 2.1 mg/dl (1.7-2.4); Potassium 3.8 mmol/L (3.5-5.1)
[2022-03-07] MEDS: INSULIN ASPART PER UNIT SC SCH ×2 (07:33→11:39)
[2022-03-07] MEDS: METOPROLOL TARTRATE 50 MG TAB PO SCH (07:37)
[2022-03-07] MEDS: CYANOCOBALAMIN (B-12) 500 MCG TABLET PO SCH (07:37)
[2022-03-07] MEDS: DOXYCYCLINE HYCLATE 100 MG CAP PO SCH (07:37)
[2022-03-07] MEDS: FUROSEMIDE 40 MG/4 ML VIAL IV SCH (07:38)
[2022-03-07] MEDS: TAMSULOSIN HCL 0.4 MG CAP PO SCH (07:38)
[2022-03-07] MEDS: amLODIPine BESYLATE 5 MG TAB PO SCH (07:38)
[2022-03-07] MEDS: ASPIRIN 81 MG ECTAB PO SCH (07:38)
[2022-03-07] MEDS: ISOSORBIDE MONO EXTENDED REL 30 MG TABCR PO SCH (07:39)
[2022-03-07] MEDS: FLUTICASONE/VILANTEROL 100/25MCG 14 PUFFS/INHALER INH SCH (07:39)
--- NOTE | 2022-03-07 08:21 | Electrocardiogram Report ---
Test Reason : Blood Pressure : / mmHG Vent. Rate : 072 BPM Atrial Rate : 072 BPM P-R Int : 162 ms QRS Dur : 100 ms QT Int : 378 ms P-R-T Axes : 054 070 042 degrees QTc Int : 413 ms Normal sinus rhythm Normal ECG When compared with ECG of 29-JUL-2021 15:50, No significant change was found Confirmed by Danilo Catherine ([id number]) on 03/07/2022 8:21:10 AM Referred By: REFERRED SELF Confirmed By:Danilo Catherine
[2022-03-07] MEDS ORDERED: INSULIN GLARGINE SOLOSTAR 100 UNITS/ML 3 ML PEN SC SCH (09:00)
[2022-03-07] MEDS ORDERED: predniSONE 20 MG TAB PO SCH (09:00)
--- NOTE | 2022-03-08 18:33 | Discharge Summary ---
Date of Service March 07, 2022 Admission HPI Per Admitting Provider History obtained from patient and records. Medical history significant for coronary artery disease s/p stent , PAF not on anticoagulation as per patient preference, PVD, hypertension, hyperlipidemia, DM2 on oral medications, COPD, ongoing tobacco abuse, bladder cancer status post surgery, history of BPH, recurrent UTIs. Last confinement 2016 under Cardiology service for abnormal nuclear stress test. Patient found to have CAD on cardiac cath status post stent placement to the ramus intermedius, chronic total occlusion of RCA. Patient recently completed antibiotic Rx for UTI. Outpatient urine CS negative. Yesterday, patient had sudden onset of fever, chills, cough productive of clear sputum. Worsening shortness of breath without chest pain or fluid retention. No known sick contacts. Patient completed COVID-19 vaccination. O2 sats noted to be 80s at the ER. Patient received Decadron, neb treatment, and Zosyn at the ER MEDICAL HISTORY: As above. SURGERIES: He had back surgery x 2 and bladder surgery, cystoscopy, small bladder tumor removal FAMILY HISTORY: Heart disease, DM SOCIAL HISTORY: 3/4 pack daily. 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 Principal Diagnosis Acute COPD exacerbation Acute diastolic CHF Acute hypoxic respiratory failure Discharge Exam Patient felt well. Back to his baseline. At time of discharge he was 95% on room air CV- regular rate and rhythm Pulm- clear bilaterally, no wheezing/rhonchi/rales Leg- no edema Discharge Data Allergies Allergy/AdvReac Type Severity Reaction Status Date / Time bee venom protein (honey bee) Allergy Severe ANAPHYLAXIS Verified 02/08/22 09:33 cephalexin [From Keflex] Allergy Unknown CAN'T Verified 02/08/22 09:33 MD CHIDI ADDED TO LIST Consultations 03/06/22 00:55 ED Decision to Admit Stat Ordered Studies 03/05/22 22:39 CT angio chest PE protocol Stat Hospital Course Mr Wilfred Farr is a 76 year old man with history of CAD, HTN, paroxysmal A fib, COPD and non insulin dependent diabetes presented to the ER 03/06 for fever/chills, cough and shortness of breath. Imaging here include CTA chest which showed CHF, cardiomegaly and emphysema as well as mildly enlaged mediastinal and hilar lymph nodes which are non specific and a 1.4 cm nodule in left lower lung. He was admitted for Acute COPD exacerbation and acute diastolic CHF. He had an TTE here which was unchanged from his prior. With IV steroids, nebulizer treatments and parenteral diuresis he felt back to baseline. Upon further questioning, patient reports being on a high salt diet and also drinking lots of lemonade due to the heat. He was counseled to remain on a low salt and fluid restricted (1.8L) diet. He was also discharged on lasix 40mg PO daily PRN for weight gain over 5 lb. He was discharged home on a prednisone taper and doxycycline to finish 5 days of Antibiotics. He was also given a prescription for a nebulizer machine and PRN albuterol nebulizer treatments. He was instructed to follow up with his PCP for a repeat CT chest in 3months to follow up this LLL lung nodule seen here. Total Time Total Time Spent Total Time Spent (In Minutes): 40 Discharge Plan Discharge Items Patient Disposition: Home - Self-Care Reason For Visit: RESP FAILURE Discharge Diagnosis: Acute COPD exacerbation Acute diastolic CHF Acute hypoxic respiratory failure Condition on Discharge: Good Activity: Resume your previous activity Non-emergency contact: Primary Care Provider and Director Pharmacovigilance Call non-emergency contact if: you have any medication questions and your symptoms worsen Follow-up/Referrals: Loretta Treviño MD [Primary Care Provider] - Diet: Heart Healthy Fluids: 1800ml (7 cups) Addtl Attending Provider Instructions: You were admitted due to cough and fever at home You had a CT chest here which showed fluid in your lungs You were treated for congestive heart failure (fluid in your lungs) with IV lasix. You had an Echo here (ultrasound of your heart) which was unchanged compared to previous. At discharge, you will be going home on lasix 40mg oral daily as needed for weight gain more than 5 lb Please follow up with your Director Pharmacovigilance Please remain on a low salt, 1.8L fluid restricted diet In addition, you were noted to have wheezing and cough. You received steroid and antibiotics here with improvement of your symptoms You will go home on a prednisone taper, doxycycline to finish 5 days antibiotic course, and you can continue your Advair for maintenance of your COPD/emphysema For COPD/emphysema breathing flare, you will be prescribed Albuterol inhaler as needed and Albuterol nebulizer as needed. Please follow up with your family doctor for result of your recent sleep study Pending Studies at Discharge: No Stand-Alone Forms: My [facility], Smoking Cessation Medications and DC Order Prescriptions: New doxycycline hyclate 100 mg Capsule 100 mg PO BID 4 Days Qty: 8 RF: 0 prednisone 20 mg Tablet 40 mg PO DAILY 4 Days Qty: 8 RF: 0 albuterol sulfate 90 mcg/actuation HFA aerosol inhaler 1 inh inhalation Q6H PRN (Reason: shortness of breath or wheezing) Qty: 8.5 RF: 0 albuterol sulfate 1.25 mg/3 mL solution for nebulization 1.25 mg continuous nebulization Q6H PRN (Reason: bronchospasm) 30 Days Qty: 75 RF: 0 furosemide [Lasix] 40 mg tablet 40 mg PO DAILY PRN (Reason: weight gain) Qty: 30 RF: 0 Continued amlodipine 10 mg tablet 5 mg PO QAM RF: 0 metformin 500 mg tablet 500 mg PO BIDM RF: 0 atorvastatin 80 mg tablet 80 mg PO HS RF: 0 isosorbide mononitrate 30 mg tablet extended release 24 hr 30 mg PO QAM RF: 0 cyanocobalamin (vitamin B-12) [Vitamin B-12] 1,000 mcg Tablet 1,000 mcg PO QAM RF: 0 aspirin [Aspir-81] 81 mg Tablet,Delayed Release (Dr/Ec) 81 mg PO QAM RF: 0 tamsulosin 0.4 mg capsule 0.4 mg PO QAM RF: 0 metoprolol tartrate 50 mg tablet 50 mg PO BID RF: 0 nitroglycerin [Nitrostat] 0.4 mg Tablet, Sublingual 0.4 mg sublingual DIRECTED PRN (Reason: Chest Pain) RF: 0 epinephrine 0.3 mg/0.3 mL auto-injector 0.3 mg IM DIRECTED PRN (Reason: Allergic Reaction) RF: 0 cholecalciferol (vitamin D3) [Vitamin D3] 25 mcg (1,000 unit) Capsule 2,000 unit PO QAM RF: 0 garlic 500 mg Capsule 500 mg PO QAM RF: 0 ondansetron 4 mg tablet,disintegrating 4 mg PO Q4H PRN (Reason: nausea and vomiting) Qty: 8 RF: 0 Advair Diskus 1 puff inhalation BID RF: 0 Discharge Orders: Discharge Order (Routine); Ordered 03/07/22 Ordered By: Alyssa Santizo Admission Data Admit Date/Time: 03/06/22 04:10 Attending Provider: Alyssa Santizo Admit Provider: Hiren Arana Primary Care Provider: Loretta Treviño Other Providers: Hiren Arana Other Interventions: Discharge Summary Assessment (RN) Last Done: 03/07/22 11:38
--- NOTE | 2022-03-10 13:38 | Coding Query ---
To promote full compliance with coding requirements relating to patient care, provider participation is requested in all cases of site coordinator uncertainty. Please assist us with the question(s) below: Coding Question(s): The diagnosis(es) below was documented in the ER and 03/06 Progress Note, then subsequently fell off all further documentation on Discharge Summary. Please indicate if it is still a possible diagnosis or ruled out. Physician's Response(s): POSSIBLE PNEUMONIA ( ) Diagnosed and POA ( ) Diagnosed and not POA ( X ) Ruled out ( ) Other (please specify) MTDD
== END 2022-03-07 14:00 | disposition home or self-care (01) | DRG 291 ==
LOC: ED 22:01 → 2S 03-06 04:10

== ENCOUNTER 2025-05-18 03:44 | Inpatient (IN) ==
--- NOTE | 2025-05-18 03:58 | Emergency Department Note ---
Impression & Plan Vomiting of blood, Anemia, Thrombocytopenia, History of lung cancer ED Provider Note Provider: Murray Mchugh MD CHIEF COMPLAINT: Nausea & vomiting, weakness HISTORY OF PRESENT ILLNESS: Patient is a 79-year-old gentleman history of lung cancer, UTI, kidney stone, hypertension, paroxysmal atrial fibrillation, COPD, type 2 diabetes presenting here today for ambulance from his home. Reports of weakness and is on chemo through [facility] for lung cancer. On aspirin but no other blood thinners. 3 weeks ago did have some nosebleeds but none recently. No significant heartburn but not on a stomach medication at this time. No anticoagulation. No abdominal pain but has been having a week and a half of watery diarrhea. No blood in this or maroon stools. 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 No alcohol or significant NSAID usage reported by the patient. No history of stomach ulcers or GI bleed. 2 again mouthfuls of bright red blood tonight. Not feeling nauseous right now but did receive Zofran for EMS. PAST MEDICAL HISTORY: As noted above MEDICATIONS: Reviewed home medications not on blood thinners. Is on aspirin. SOCIAL HISTORY: Denies regular alcohol use PHYSICAL EXAM: GENERAL: alert and oriented in no acute distress on stretcher Head: normocephalic and atraumatic EYES: No injection, discharge or icterus. EOMI. NECK: Trachea midline. ENT: Mucous membranes pink and moist. LUNGS: Airway patent. No retractions. Breath sounds clear HEART: Regular rate and rhythm. No chest wall tenderness ABDOMEN: Soft and non-tender, without guarding or rebound. SKIN: Acyanotic, warm, dry, without rashes EXTREMITIES: Without swelling, tenderness or deformity NEUROLOGICAL: No focal deficits. No aphasia. No facial droop or slurred speech. Ambulatory. EK bpm sinus rhythm with PAC. No PVC. No acute ST segment elevation with some lead III T wave inversion. QTc 452. CONTINUOUS CARDIAC MONITORING: was ordered and showed a heart rate of 60s to 70s bpm in sinus rhythm with frequent PACs Patient's laboratory studies and imaging reviewed. Differential includes Diverticulosis, AVM, coagulopathy, colitis, inflammatory bowel disease, malignancy, Sofie-Mueller tear, esophagitis, peptic ulcer disease, variceal bleed, gastritis, epistaxis, fissure, hemorrhoids, as well as other pathologies. IMPRESSION/MEDICAL DECISION MAKING: Patient on chemotherapy. No alcohol or NSAID usage reported. Is on a baby aspirin no other blood thinners. Has had lower counts related to his chemotherapy. Now with 2 episodes of bright red blood vomiting episodes. Do not see a significant liver history and he does not report a history of gastric bleeds in the past. Some we can have fairly significant watery diarrhea but no blood in this. Given Protonix bolus and drip here. Concerned given his low counts and low platelets if he is more anemic and if he is suffering from upper GI bleed. Blood work is obtained. CTA scan of the abdomen pelvis ordered. Labs from outpatient setting and [facility] hemoglobin of 8.3 on 06 May as well as a plate count of 266. Blood work here without significant renal dysfunction. Bilirubin normal but slight AST and ALT elevation. No lipase elevation and doubt true hepatitis or pancreatitis. Slight hypokalemia 3.2. CBC returned showing hemoglobin of 7.0. Platelet count of 48. Given the decrease in his report of 2 bloody emesis episodes we will give a pack of platelets and need of packed red blood cells. Will bring in for further GI workup. IV contrast does make him nauseous although he was given Zofran still vomited CT. There was blood in this. CT report with stable aneurysm. UA sent given perinephric stranding but patient without reports of significant urinary symptoms. Patient agreeable with plan to stay for further transfusion and GI evaluation. The hospitalist was contacted. No further active bleeding and not seemingly unstable at this time. Do not feel he needs emergent scope this minute we will continue to monitor. DIAGNOSIS: Vomiting blood, lung cancer, thrombocytopenia, anemia DISPOSITION: Hospitalist will evaluate Patient was agreeable with this plan. Critical Care I have personally spent 38 minutes of critical care time in the direct management of this patient. This includes bedside care, interpretation of diagnostic studies, and testing, discussion with consultants, patient, and other required patient management activities. These 38 minutes is in excess of all separately billable procedures. Past Med/Surg History Problem List (Updated 05/18/25 @ 05:26 by Murray Mchugh M.D.) History of lung cancer (Acute) Thrombocytopenia (Acute) Anemia (Acute) Vomiting of blood (Acute) Acute bronchitis (Acute) Closed head injury (Acute) Concussion (Acute) Concussion (Acute) Occipital scalp laceration (Acute) Stented coronary artery Upper respiratory infection (Acute) Work related injury (Acute) Renal colic (Acute) Bilateral ureteral calculi (Acute) Hydronephrosis (Acute) Acute UTI (Acute) Leukocytosis (Acute) Melanoma Mohs x2 ANDRES (acute kidney injury) Encounter for pre-operative examination Left ureteral calculus Benign prostatic hyperplasia (BPH) with straining on urination Encounter for pre-operative examination Encounter for pre-operative examination Nephrolithiasis Pneumonia (Acute) Hypoxic (Acute) Hypomagnesemia (Acute) Acute hypoxemic respiratory failure HTN (hypertension) Paroxysmal atrial fibrillation 2011 had episode after back surgery and no problems since. Zio monitoring in Jun 2019 showed no evidence of recurrent atrial fibrillation follow with Dr. Carroll/ [facility] Bladder cancer dx'd 2007. 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 Bladder cancer dx'd 2007. BCG treatment + surgery BPH (benign prostatic hyperplasia) CAD (coronary artery disease) Follows with [facility] S/p DULCE to ramus that had collaterals to the right on 06/2017 COPD (chronic obstructive pulmonary disease) Diabetes mellitus, type II NIDDM History of gout History of melanoma History of Mohs micrographic surgery for skin cancer HTN (hypertension) Hyperlipidemia Kidney stone Myocardial Infarction 1996 > anterior wall MO PAD (peripheral artery disease) Mild bilateral ICA disease (per 2019 carotid duplex) Arterial doppler of LE showed mild PAD on right side (April 2021) Paroxysmal atrial fibrillation 2010 had episode after back surgery and no problems since. Zio monitoring in Jun 2019 showed no evidence of recurrent atrial fibrillation follow with Dr. Carroll/ [facility] Surgical History History of cancer surgery bladder History of cardiac cath 2017 > 1 STENT > [facility] History of cystoscopy History of lithotripsy recent--08/21/21 @ [place] History of lumbar spinal fusion 2010 1968 History of tooth extraction History of urologic surgery Hx of colonoscopy Family History Father Diabetes Grandmother (Paternal) Diabetes Other Cancer Coronary heart disease Hypertension No family history of adverse response to anesthesia Social History Smoking Status: Current every day smoker Tobacco Type: Cigarettes Cigarettes Per Day: 7; Second Hand Exposure: No; Do You Dip or Chew Tobacco: No; Hx Alcohol Use: Yes Alcohol type: beer Hx Substance Use: No Preferred Language: Bruneian Communication Ability: Effective Edge Grinder Machine Required: No Beliefs That Will Affect Care: None marital status: Current Living Situation: Spouse Feels Safe at Home: Yes Assistive Devices: Denture - Upper, Denture - Lower and Glasses Allergies Allergies Allergy/AdvReac Type Severity Reaction Status Date / Time bee venom protein (honey bee) Allergy Severe ANAPHYLAXIS Verified 02/22/23 09:43 cephalexin [From Keflex] Allergy Unknown CAN'T Verified 02/22/23 09:43 MD CHIDI ADDED TO LIST Home Meds Home Medications Medication Instructions Recorded Confirmed aspirin 81 mg tablet,delayed 81 mg PO QAM 04/22/20 02/22/23 release (Aspir-) atorvastatin 80 mg tablet 80 mg PO HS 04/22/20 02/22/23 cholecalciferol (vitamin D3) 25 2,000 unit PO QAM 04/22/20 02/22/23 mcg (1,000 unit) capsule (Vitamin D3) epinephrine 0.3 mg/0.3 mL 0.3 mg IM DIRECTED PRN Allergic 04/22/20 02/22/23 injection, auto-injector Reaction metformin 500 mg tablet 500 mg PO BIDM 04/22/20 02/22/23 metoprolol tartrate 50 mg tablet 50 mg PO BID 04/22/20 02/22/23 nitroglycerin 0.4 mg sublingual 0.4 mg sublingual DIRECTED PRN 04/22/20 02/22/23 tablet (Nitrostat) Chest Pain tamsulosin 0.4 mg capsule 0.4 mg PO QAM 04/22/20 02/22/23 amlodipine 5 mg tablet 5 mg PO QAM 02/03/23 02/22/23 clotrimazole-betamethasone 1 1 applic topical BID PRN .flare ups 02/03/23 02/22/23 %-0.05 % topical cream fluticasone 250 mcg-salmeterol 50 1 inh inhalation BID 02/03/23 02/22/23 mcg/dose blistr powdr for inhalation (Advair Diskus) isosorbide mononitrate 30 mg 30 mg PO QAM 02/03/23 02/22/23 tablet,extended release 24 hr lisinopril 2.5 mg tablet 2.5 mg PO QPM 02/03/23 02/22/23 vitamin B complex 1 tab PO QAM 02/03/23 02/22/23 Previous Rx's Medication Instructions Recorded ondansetron 4 mg disintegrating 4 mg PO Q4H PRN nausea and 07/20/21 tablet vomiting #8 tabs albuterol sulfate 90 mcg/actuation 1 inh inhalation Q6H PRN shortness 03/07/22 aerosol inhaler of breath or wheezing #8.5 grams ciprofloxacin HCl 500 mg tablet 500 mg PO BID #6 tabs 02/22/23 (Cipro) hydrocodone 5 mg-acetaminophen 325 1 tab PO Q6H PRN pain #20 tabs 02/22/23 mg tablet Results & Data (ED) Vital Signs Vital Signs - 24 hr 05/18/25 03:46 05/18/25 03:49 05/18/25 03:49 Temperature 36.6 C Temperature Source Oral Pulse Rate 82 84 Pulse Rate from SpO2 Sensor Pulse Rhythm Regular Pulse Strength Normal Respiratory Rate 18 Respiratory Effort / Characteristics Non-Labored Spontaneous Respiratory Depth Normal Respiratory Pattern Regular Blood Pressure 138/55 L 138/55 L Blood Pressure Mean 82 84 Blood Pressure Position Lying Pulse Oximetry 99 Oxygen Delivery Method Room Air Sepsis Recent Fever Within 48 Hours No Sepsis New/Unexplained Change in Mental Status N/A Sepsis Action Taken by Nursing No Action Required 05/18/25 03:53 05/18/25 03:54 05/18/25 04:18 Temperature Temperature Source Pulse Rate 78 72 Pulse Rate from SpO2 Sensor 67 66 Pulse Rhythm Pulse Strength Respiratory Rate 13 14 Respiratory Effort / Characteristics Respiratory Depth Respiratory Pattern Blood Pressure 138/64 Blood Pressure Mean 70 Blood Pressure Position Pulse Oximetry 99 98 Oxygen Delivery Method Sepsis Recent Fever Within 48 Hours Sepsis New/Unexplained Change in Mental Status Sepsis Action Taken by Nursing 05/18/25 04:38 05/18/25 04:42 05/18/25 05:00 Temperature Temperature Source Pulse Rate 72 95 H 81 Pulse Rate from SpO2 Sensor 76 Pulse Rhythm Pulse Strength Respiratory Rate 19 21 14 Respiratory Effort / Characteristics Respiratory Depth Respiratory Pattern Blood Pressure Blood Pressure Mean Blood Pressure Position Pulse Oximetry 99 97 Oxygen Delivery Method Room Air Sepsis Recent Fever Within 48 Hours Sepsis New/Unexplained Change in Mental Status Sepsis Action Taken by Nursing 05/18/25 05:01 05/18/25 05:18 05/18/25 05:19 Temperature Temperature Source Pulse Rate 81 Pulse Rate from SpO2 Sensor Pulse Rhythm Pulse Strength Respiratory Rate 15 Respiratory Effort / Characteristics Respiratory Depth Respiratory Pattern Blood Pressure 137/91 Blood Pressure Mean 59 98 Blood Pressure Position Pulse Oximetry 98 Oxygen Delivery Method Sepsis Recent Fever Within 48 Hours Sepsis New/Unexplained Change in Mental Status Sepsis Action Taken by Nursing 05/18/25 05:19 05/18/25 05:19 05/18/25 05:19 Temperature Temperature Source Pulse Rate Pulse Rate from SpO2 Sensor Pulse Rhythm Pulse Strength Respiratory Rate Respiratory Effort / Characteristics Respiratory Depth Respiratory Pattern Blood Pressure 137/91 137/91 137/91 Blood Pressure Mean 98 98 98 Blood Pressure Position Pulse Oximetry Oxygen Delivery Method Sepsis Recent Fever Within 48 Hours Sepsis New/Unexplained Change in Mental Status Sepsis Action Taken by Nursing 05/18/25 05:30 Temperature Temperature Source Pulse Rate 74 Pulse Rate from SpO2 Sensor 76 Pulse Rhythm Pulse Strength Respiratory Rate 13 Respiratory Effort / Characteristics Respiratory Depth Respiratory Pattern Blood Pressure Blood Pressure Mean Blood Pressure Position Pulse Oximetry 93 Oxygen Delivery Method Sepsis Recent Fever Within 48 Hours Sepsis New/Unexplained Change in Mental Status Sepsis Action Taken by Nursing Laboratory Data 05/18/25 03:56 05/18/25 03:56 Lab Results 05/18/25 05/18/25 05/18/25 Range/Units 03:56 04:00 04:01 WBC 2.45 L (4.8-10.8) K/ul RBC 1.90 L (4.70-6.10) M/uL Hgb 7.0 L (14.0-18.0) g/dl POC Hgb 6.8 L* (14.0-18.0) g/dl Hct 21.6 L (42.0-52.0) % POC Hct 20 L* (42-52) % MCV 113.7 H (80.0-100.0) fL MCH 36.8 H (25.0-34.0) pg MCHC 32.4 (32.0-36.0) g/dL RDW Std Deviation 69.1 H (36.4-46.3) fL RDW Coeff of Ele 16.5 H (11.5-14.5) % Plt Count 48 L (130-400) K/uL MPV 12.8 H (9.4-12.4) fL Immature Gran % (Auto) 0.4 % Neut % (Auto) 26.2 % Lymph % (Auto) 52.2 % Blount % (Auto) 18.4 % Eos % (Auto) 2.4 % Baso % (Auto) 0.4 % Neut # (Auto) 0.64 L* (1.40-6.50) K/uL Lymph # (Auto) 1.28 (1.20-3.40) K/uL Blount # (Auto) 0.45 (0.11-0.59) K/uL Eos # (Auto) 0.06 (0.00-0.50) K/uL Baso # (Auto) 0.01 (0.00-0.20) K/uL Immature Gran # (Auto) 0.01 (0.01-0.20) K/uL Platelet Estimate Decreased L (Normal) Polychromasia 2+ Macrocytosis Present Tear Drop Cells 1+ Acanthocytes (Spur) 2+ PT 11.9 (9.0-12.0) Seconds INR 1.1 (0.9-1.1) APTT 37 H (21-31) Seconds PTT Ratio 1.4 POC Sodium 144 (135-144) mmol/L Sodium 145 (136-145) mmol/L POC Potassium 3.1 L (3.3-5.0) mmol/L Potassium 3.2 L (3.5-5.1) mmol/L POC Chloride 109 (101-112) mmol/L Chloride 110 H (98-107) mmol/L Carbon Dioxide 24 (21-32) mmol/L POC Total CO2 20 L (24-31) mmol/L Anion Gap 11 (3-11) POC Anion Gap 20.0 (16-25) mmol/L POC BUN 11 (7-18) mg/dl BUN 15 (6-23) mg/dl Creatinine 1.12 (0.6-1.4) mg/dl POC Creatinine 1.2 (0.6-1.3) mg/dl Est Cr Clr Drug Dosing 50.8 ml/min eGFR 67.24 BUN/Creatinine Ratio 13.4 (10-20) Glucose 101 H (70-99(Fasting)) mg/dl POC Glucose (other) 96 (70-99) mg/dl Calcium 7.8 L (8.6-10.3) mg/dl POC Ioniz Calcium Anthony 1.04 L (1.12-1.32) mmol/l Total Bilirubin 0.6 (0.2-1.0) mg/dl AST 72 H (13-39) U/L ALT 60 H (7-52) U/L Alkaline Phosphatase 77 (34-104) U/L Troponin I High Sens 12.5 (0-20) pg/ml Total Protein 5.8 L (6.0-8.3) gm/dl Albumin 3.0 L (3.4-5.0) gm/dl Globulin 2.8 (2.5-4.0) gm/dl Albumin/Globulin Ratio 1.1 (0.9-2) Lipase 41 (11-82) U/L SARS-CoV-2, RNA, NAAT (NEGATIVE) Blood Type B Positive Antibody Screen NEGATIVE 05/18/25 Range/Units 04:53 WBC (4.8-10.8) K/ul RBC (4.70-6.10) M/uL Hgb (14.0-18.0) g/dl POC Hgb (14.0-18.0) g/dl Hct (42.0-52.0) % POC Hct (42-52) % MCV (80.0-100.0) fL MCH (25.0-34.0) pg MCHC (32.0-36.0) g/dL RDW Std Deviation (36.4-46.3) fL RDW Coeff of Ele (11.5-14.5) % Plt Count (130-400) K/uL MPV (9.4-12.4) fL Immature Gran % (Auto) % Neut % (Auto) % Lymph % (Auto) % Blount % (Auto) % Eos % (Auto) % Baso % (Auto) % Neut # (Auto) (1.40-6.50) K/uL Lymph # (Auto) (1.20-3.40) K/uL Blount # (Auto) (0.11-0.59) K/uL Eos # (Auto) (0.00-0.50) K/uL Baso # (Auto) (0.00-0.20) K/uL Immature Gran # (Auto) (0.01-0.20) K/uL Platelet Estimate (Normal) Polychromasia Macrocytosis Tear Drop Cells Acanthocytes (Spur) PT (9.0-12.0) Seconds INR (0.9-1.1) APTT (21-31) Seconds PTT Ratio POC Sodium (135-144) mmol/L Sodium (136-145) mmol/L POC Potassium (3.3-5.0) mmol/L Potassium (3.5-5.1) mmol/L POC Chloride (101-112) mmol/L Chloride (98-107) mmol/L Carbon Dioxide (21-32) mmol/L POC Total CO2 (24-31) mmol/L Anion Gap (3-11) POC Anion Gap (16-25) mmol/L POC BUN (7-18) mg/dl BUN (6-23) mg/dl Creatinine (0.6-1.4) mg/dl POC Creatinine (0.6-1.3) mg/dl Est Cr Clr Drug Dosing ml/min eGFR BUN/Creatinine Ratio (10-20) Glucose (70-99(Fasting)) mg/dl POC Glucose (other) (70-99) mg/dl Calcium (8.6-10.3) mg/dl POC Ioniz Calcium Anthony (1.12-1.32) mmol/l Total Bilirubin (0.2-1.0) mg/dl AST (13-39) U/L ALT (7-52) U/L Alkaline Phosphatase (34-104) U/L Troponin I High Sens (0-20) pg/ml Total Protein (6.0-8.3) gm/dl Albumin (3.4-5.0) gm/dl Globulin (2.5-4.0) gm/dl Albumin/Globulin Ratio (0.9-2) Lipase (11-82) U/L SARS-CoV-2, RNA, NAAT NEGATIVE (NEGATIVE) Blood Type Antibody Screen Administered Medications Pantoprazole Sodium 40 mg/ (Dextrose) 100 mls @ 20 mls/hr IV Q5H CHANELLE Stop: 06/17/25 04:44 Last Admin: 05/18/25 04:46 Dose: 8 mg/hr, 20 mls/hr Documented By: ERMA Discontinued Medications Pantoprazole Sodium 80 mg/ (Dextrose) 120 mls @ 480 mls/hr IV NOW ONE Stop: 05/18/25 04:44 Last Admin: 05/18/25 04:46 Dose: 480 mls/hr Documented By: ERMA Ioversol (Optiray 320 125ml) 118 ml IV ONCE ONE Stop: 05/18/25 04:35 Last Admin: 05/18/25 04:34 Dose: 118 ml Documented By: LAWRENCE Ondansetron HCl (Ondansetron Inj 2 Mg/Ml 2 Ml Vial) 4 mg IV NOW STA Stop: 05/18/25 04:25 Last Admin: 05/18/25 04:28 Dose: 4 mg Documented By: REBECCA Pantoprazole Sodium (Pantoprazole Bolus/Drip) 1 each IV NOW STA Stop: 05/18/25 04:31 Last Admin: 05/18/25 04:50 Dose: 1 each Documented By: KRAIG Imaging Data Radiologist's Impression: Chest X-Ray 05/18/25 03:54 EXAM: XR chest 1V portable CLINICAL HISTORY: Nausea, bloody stool. TECHNIQUE: An X-ray image of the chest is obtained in AP projection. COMPARISON: No prior studies are available for comparison. FINDINGS: CVL noted at IVC. Pulmonary Parenchyma: Haziness with retricular markings at both lower lobes. No evidence of pleural effusion or pleural thickening. Heart and Mediastinum: Heart size and shape are normal. No mediastinal widening or masses. No hilar or mediastinal lymphadenopathy. Bony Thorax: Bony thorax appears intact without fractures or deformities. Soft Tissues: Soft tissues overlying the chest wall are unremarkable. IMPRESSION: 1. CVL noted at IVC. 2. Haziness with retricular markings at both lower lobes could represent Pulmonary congestion however clinical and lab correlation is advised to rule out pulmonary infection. Electronically signed by Jorge Villanueva 05-18-2025 05:01 AM Abdomen/Pelvis CTA 05/18/25 04:10 EXAM: CT angio abdomen pelvis w con CLINICAL HISTORY: AAA, bloody vomiting, on chemo, low plts TECHNIQUE: Contrast enhanced thin slice CT angiography scan of the abdominal aorta was performed with intravenous contrast. Angiographic images were processed, 3D MIP images were acquired for interpretation. Contiguous axial images were obtained. Reformatted coronal and sagittal images were also reviewed. If IV contrast material had not been administered, the likelihood of detecting abnormalities relevant to the patients condition would have been substantially decreased. CT scan was performed according to ALARA (as low as reasonable achievable). COMPARISON: none FINDINGS: Abdominal aorta is normal in course and opacification. Mildly prominent infrarenal abdominal aorta with a maximum caliber of ~3omm Diffuse atherosclerotic chanegs with eccentric calcifications through out visualised aorta, its visceral branches and bilateral iliac arteries with no hemodynamically significant stenosis. Origin of coeliac artery, superior mesenteric artery , bilateral main renal and lumbar arteries shows eccentric calcifications and are normal in caliber with no hemodynamically significant ostial stenosis noted. Bilateral common, external and internal iliac arteries are normal in course, caliber and opacification. Solid abdominal organs including liver, spleen, pancreas and bilateral kidneys reveal no significant abnormality. Bowel loops are grossly unremarkable. No evidence of ascites. Bilateral minimal pleural effusion with bibasal atelectasis changes Bilateral bosniak type I cysts Bilateral mild perinephric fat stranding Prostatomegaly Uncomplicated colonic diverticulosis Contracted gall bladder with mild edematous wall thickening. IMPRESSION: Mild fusiform dilatation of infrarenal aorta with a maximum caliber of ~30mm. Diffuse atherosclerotic chanegs with eccentric calcifications through out visualised aorta, its visceral branches and bilateral iliac arteries with no hemodynamically significant stenosis. 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 Electronically signed by Sergo Ozuna 05-18-2025 05:32 AM Discharge Plan Visit Data Chief Complaint: GI Bleed Stated Complaint: GI BLEED, N/V, WEAKNESS ED Provider: Murray Mchugh Discharge Problem: Vomiting of blood, Anemia, Thrombocytopenia, History of lung cancer Patient Disposition: Being Evaluated by Hospitalist Condition: Serious Forms Stand Alone Forms: My [employer] Prescriptions Prescriptions: No Action metformin 500 mg tablet 500 mg PO BIDM atorvastatin 80 mg tablet 80 mg PO HS aspirin [Aspir-81] 81 mg Tablet,Delayed Release (Dr/Ec) 81 mg PO QAM tamsulosin 0.4 mg capsule 0.4 mg PO QAM metoprolol tartrate 50 mg tablet 50 mg PO BID nitroglycerin [Nitrostat] 0.4 mg Tablet, Sublingual 0.4 mg sublingual DIRECTED PRN (Reason: Chest Pain) epinephrine 0.3 mg/0.3 mL auto-injector 0.3 mg IM DIRECTED PRN (Reason: Allergic Reaction) cholecalciferol (vitamin D3) [Vitamin D3] 25 mcg (1,000 unit) Capsule 2,000 unit PO QAM ondansetron 4 mg tablet,disintegrating 4 mg PO Q4H PRN (Reason: nausea and vomiting) Qty: 8 0RF fluticasone propion-salmeterol [Advair Diskus] 250-50 mcg/dose Blister With Device 1 inh INHALATION BID isosorbide mononitrate 30 mg Tablet Extended Release 24 Hr 30 mg PO QAM amlodipine 5 mg Tablet 5 mg PO QAM clotrimazole-betamethasone 1-0.05 % Cream 1 applic TOPICAL BID PRN (Reason: .flare ups) vitamin B complex Tablet 1 tab PO QAM lisinopril 2.5 mg Tablet 2.5 mg PO QPM albuterol sulfate 90 mcg/actuation HFA aerosol inhaler 1 inh inhalation Q6H PRN (Reason: shortness of breath or wheezing) Qty: 8.5 0RF ciprofloxacin HCl [Cipro] 500 mg tablet 500 mg PO BID Qty: 6 0RF hydrocodone-acetaminophen 5-325 mg tablet 1 tab PO Q6H PRN (Reason: pain) Qty: 20 0RF Referrals Referrals: Loretta Treviño MD [Primary Care Provider] - Discharge Problem: Vomiting of blood Qualifiers: Nausea presence: with nausea Qualified Code(s): K92.0 - Hematemesis
[2025-05-18] MEDS: ONDANSETRON INJ 2 MG/ML 2 ML VIAL IV STA (04:28)
[2025-05-18 04:29] LABS: Alanine Aminotransferase 60.0 U/L (7-52); Albumin Globulin Ratio 1.1 (0.9-2); Albumin Level 3.0 gm/dl (3.4-5.0); Alkaline Phosphatase 77.0 U/L (34-104); Anion Gap 11.0 (3-11); Bilirubin,Total 0.6 mg/dl (0.2-1.0); Blood Urea Nitrogen 15.0 mg/dl (6-23); Calcium 7.8 mg/dl (8.6-10.3); Carbon Dioxide 24.0 mmol/L (21-32); Chloride 110.0 mmol/L (98-107); Creatinine Clr Calc Pharmacy 50.8 ml/min; Globulin 2.8 gm/dl (2.5-4.0); Glucose 101.0 mg/dl (70-99(Fasting)); Lipase 41.0 U/L (11-82); Potassium 3.2 mmol/L (3.5-5.1); Sodium 145.0 mmol/L (136-145); Total Protein 5.8 gm/dl (6.0-8.3)
[2025-05-18] MEDS: OPTIRAY 320 125ml IV ONE (04:34)
[2025-05-18 04:46] LABS: INR 1.1 (0.9-1.1); Partial Thromboplastin Time 37 Seconds (21-31); Prothrombin Time 11.9 Seconds (9.0-12.0)
[2025-05-18] MEDS: PANTOprazole 40 MG in DEXTROSE 5% MINI-B 100 ML IV SCH (04:46)
[2025-05-18 04:47] LABS: Hematocrit (blood only) 21.6 % (42.0-52.0); Hemoglobin 7.0 g/dl (14.0-18.0); Mean Corpuscular Hemoglobin 36.8 pg (25.0-34.0); Mean Corpuscular Volume 113.7 fL (80.0-100.0); Platelet Count 48 K/uL (130-400); RDW Standard Deviation 69.1 fL (36.4-46.3); Red Blood Count 1.90 M/uL (4.70-6.10); White Blood Count 2.45 K/ul (4.8-10.8)
[2025-05-18] MEDS: PANTOPRAZOLE BOLUS/DRIP IV STA (04:50)
[2025-05-18 04:53] LABS: Acanthocytes 2+; Macrocytosis Present; Polychromasia 2+; Tear Drop Cells 1+
[2025-05-18 04:59] LABS: Immature Granulocytes # (auto) 0.01 K/uL (0.01-0.20); Immature Granulocytes % (auto) 0.4 %
--- NOTE | 2025-05-18 05:02 | XRay Report ---
EXAM: XR chest 1V portable CLINICAL HISTORY: Nausea, bloody stool. TECHNIQUE: An X-ray image of the chest is obtained in AP projection. COMPARISON: No prior studies are available for comparison. FINDINGS: CVL noted at IVC. Pulmonary Parenchyma: Haziness with retricular markings at both lower lobes. No evidence of pleural effusion or pleural thickening. Heart and Mediastinum: Heart size and shape are normal. No mediastinal widening or masses. No hilar or mediastinal lymphadenopathy. Bony Thorax: Bony thorax appears intact without fractures or deformities. Soft Tissues: Soft tissues overlying the chest wall are unremarkable. IMPRESSION: 1. CVL noted at IVC. 2. Haziness with retricular markings at both lower lobes could represent Pulmonary congestion however clinical and lab correlation is advised to rule out pulmonary infection. Electronically signed by Jorge Villanueva 05-18-2025 05:01 AM
[2025-05-18] MEDS ORDERED: SODIUM CHLORIDE 0.9% 100 ML IV PRN ×2 (05:20→05:21)
--- NOTE | 2025-05-18 05:37 | CT Scan Report ---
EXAM: CT angio abdomen pelvis w con CLINICAL HISTORY: AAA, bloody vomiting, on chemo, low plts TECHNIQUE: Contrast enhanced thin slice CT angiography scan of the abdominal aorta was performed with intravenous contrast. Angiographic images were processed, 3D MIP images were acquired for interpretation. Contiguous axial images were obtained. Reformatted coronal and sagittal images were also reviewed. If IV contrast material had not been administered, the likelihood of detecting abnormalities relevant to the patients condition would have been substantially decreased. CT scan was performed according to ALARA (as low as reasonable achievable). COMPARISON: none FINDINGS: Abdominal aorta is normal in course and opacification. Mildly prominent infrarenal abdominal aorta with a maximum caliber of ~3omm Diffuse atherosclerotic chanegs with eccentric calcifications through out visualised aorta, its visceral branches and bilateral iliac arteries with no hemodynamically significant stenosis. Origin of coeliac artery, superior mesenteric artery , bilateral main renal and lumbar arteries shows eccentric calcifications and are normal in caliber with no hemodynamically significant ostial stenosis noted. Bilateral common, external and internal iliac arteries are normal in course, caliber and opacification. Solid abdominal organs including liver, spleen, pancreas and bilateral kidneys reveal no significant abnormality. Bowel loops are grossly unremarkable. No evidence of ascites. Bilateral minimal pleural effusion with bibasal atelectasis changes Bilateral bosniak type I cysts Bilateral mild perinephric fat stranding Prostatomegaly Uncomplicated colonic diverticulosis Contracted gall bladder with mild edematous wall thickening. IMPRESSION: Mild fusiform dilatation of infrarenal aorta with a maximum caliber of ~30mm. Diffuse atherosclerotic chanegs with eccentric calcifications through out visualised aorta, its visceral branches and bilateral iliac arteries with no hemodynamically significant stenosis. 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 Electronically signed by Sergo Ozuna 05-18-2025 05:32 AM
--- NOTE | 2025-05-18 05:49 | History & Physical Report ---
Date of Service May 18, 2025 Assessment & Plan (1) UGIB (upper gastrointestinal bleed): Plan: Assessment and plan below following discussion of case with ED provider and reviewing patient history/pertinent normal/abnormal diagnostic test results. UGIB In the setting of aspirin Rx, history of CAD status post stent and thrombocytopenia likely secondary to chemotherapy, history of metastatic cancer unknown primary Differentials include esophagitis, gastritis, PUD Acute on chronic anemia secondary to above, patient pancytopenic likely from chemotherapy PAF not on anticoagulation as per patient preference New onset transaminitis, with patient without abdominal pain complaints valvular heart disease (mild MR/TR) hx PVD hypertension, slightly elevated hyperlipidemia on statin Rx DM2 on oral medications, well-controlled as of recent hemoglobin A1c of 6 last January 2025 COPD, lung status at baseline bladder cancer status post surgery Hypokalemia secondary to emesis RLE swelling rule out DVT Ongoing tobacco abuse Admit to med/tele IV PPI Hold antiplatelet Rx for now Transfuse PRBC to maintain hemoglobin of at least 8 given history CAD/PVD Transfuse for his platelets to maintain level of at least 50K GI consult re: UGIB N.p.o. in anticipation of endoscopy Follow LFTs, liver ultrasound if with progression, hold statin for now Replace electrolytes RLE venous Dopplers rule out DVT ISS BG goal 1 10-1 40 Nicotine patch as needed DVT prophylaxis. SCDs if no blood clot on venous Dopplers Full code Text document was generated using [employer] voice recognition software. It may contain grammatical or spelling errors. Kindly contact undersigned for clarification of any documentation item in question. History of Present Illness Chief Complaint: Hematemesis Primary Care Provider: Loretta Treviño MD History obtained from patient and records. Medical history significant for coronary artery disease s/p stent (2017), PAF not on anticoagulation as per patient preference, valvular heart disease (mild MR/TR), PVD, hypertension, hyperlipidemia, DM2 on oral medications, COPD, metastatic cancer unknown primary ongoing chemotherapy, bladder cancer status post surgery, skin cancer as per records, history of BPH, recurrent UTIs, chronic anemia (baseline hemoglobin 8-9), ongoing tobacco abuse Last 2021 for COPD/CHF exacerbation. Patient with sudden onset hematemesis last night without unusual abdominal pain. Denies chest pain, SOB. No OTC NSAID intake. Right leg swelling over the last few days without recollection of trauma. Patient brought to ER for evaluation with recurrent hematemesis episodes. IV Protonix and 1 unit PRBC and pheresed platelets administered at the ER. MEDICAL HISTORY: As above. SURGERIES: He had back surgery x 2 and bladder surgery, cystoscopy, small bladder tumor removal, vascular procedures, cataract surgeries, thoracoscopy/mediastinal biopsy FAMILY HISTORY: Heart disease, DM SOCIAL HISTORY: 3/4 pack daily. 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 Allergies Allergy/AdvReac Type Severity Reaction Status Date / Time bee venom protein (honey bee) Allergy Severe ANAPHYLAXIS Verified 02/22/23 09:43 cephalexin [From Keflex] Allergy Unknown CAN'T Verified 02/22/23 09:43 MD CHIDI ADDED TO LIST Home Medications Medication Instructions Recorded Confirmed Type aspirin 81 mg tablet,delayed 81 mg PO QAM 04/22/20 05/18/25 History release (Aspir-) atorvastatin 80 mg tablet 80 mg PO HS 04/22/20 05/18/25 History cholecalciferol (vitamin D3) 25 2,000 unit PO QAM 04/22/20 05/18/25 History mcg (1,000 unit) capsule (Vitamin D3) epinephrine 0.3 mg/0.3 mL 0.3 mg IM DIRECTED PRN Allergic 04/22/20 05/18/25 History injection, auto-injector Reaction metformin 500 mg tablet 500 mg PO BIDM 04/22/20 05/18/25 History metoprolol tartrate 50 mg tablet 50 mg PO BID 04/22/20 05/18/25 History nitroglycerin 0.4 mg sublingual 0.4 mg sublingual DIRECTED PRN 04/22/20 05/18/25 History tablet (Nitrostat) Chest Pain tamsulosin 0.4 mg capsule 0.4 mg PO QAM 04/22/20 05/18/25 History clotrimazole-betamethasone 1 1 applic topical BID PRN .flare ups 02/03/23 05/18/25 History %-0.05 % topical cream isosorbide mononitrate 30 mg 30 mg PO QAM 02/03/23 05/18/25 History tablet,extended release 24 hr lisinopril 2.5 mg tablet 2.5 mg PO QPM 02/03/23 05/18/25 History vitamin B complex 1 tab PO QAM 02/03/23 05/18/25 History albuterol sulfate 90 mcg/actuation 2 inh inhalation Q4H PRN shortness 05/18/25 05/18/25 History aerosol inhaler of breath or wheezing budesonide 160 mcg-glycopyr 9 2 inh inhalation BID 05/18/25 05/18/25 History mcg-formot 4.8 mcg/actuation HFA inhaler (Breztri Aerosphere) folic acid 1 mg tablet 1 mg PO DAILY 05/18/25 05/18/25 History ondansetron 4 mg disintegrating 8 mg PO Q8H PRN nausea and vomiting 05/18/25 05/18/25 History tablet prochlorperazine maleate 10 mg 10 mg PO Q6H PRN Nausea And 05/18/25 05/18/25 History tablet Vomiting trazodone 50 mg tablet 50 mg PO HS 05/18/25 05/18/25 History Past Med/Surg History Problem List UGIB (upper gastrointestinal bleed) History of lung cancer (Acute) Thrombocytopenia (Acute) Anemia (Acute) Vomiting of blood (Acute) Acute bronchitis (Acute) Closed head injury (Acute) Concussion (Acute) Concussion (Acute) Occipital scalp laceration (Acute) Stented coronary artery Upper respiratory infection (Acute) Work related injury (Acute) Renal colic (Acute) Bilateral ureteral calculi (Acute) Hydronephrosis (Acute) Acute UTI (Acute) Leukocytosis (Acute) Melanoma Mohs x2 ANDRES (acute kidney injury) Encounter for pre-operative examination Left ureteral calculus Benign prostatic hyperplasia (BPH) with straining on urination Encounter for pre-operative examination Encounter for pre-operative examination Nephrolithiasis Pneumonia (Acute) Hypoxic (Acute) Hypomagnesemia (Acute) Acute hypoxemic respiratory failure HTN (hypertension) Paroxysmal atrial fibrillation 2010 had episode after back surgery and no problems since. Zio monitoring in Jun 2019 showed no evidence of recurrent atrial fibrillation follow with Dr. Carroll/ Laura Bladder cancer dx'd 2007. 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 Surgical History History of urologic surgery History of cancer surgery bladder History of cystoscopy History of tooth extraction History of lithotripsy recent--08/21/21 @ [place] History of cardiac cath 2016 > 1 STENT > [facility] Hx of colonoscopy History of lumbar spinal fusion 2010 1968 Family History Father Diabetes Grandmother (Paternal) Diabetes Other Cancer Coronary heart disease Hypertension No family history of adverse response to anesthesia Social History Smoking Status: Current every day smoker Tobacco Type: Cigarettes Cigarettes Per Day: 7; Second Hand Exposure: No; Do You Dip or Chew Tobacco: No; Hx Alcohol Use: Yes Alcohol type: beer Hx Substance Use: No Preferred Language: Estonian Communication Ability: Effective Bisque Tile Burner Required: No Beliefs That Will Affect Care: None marital status: Current Living Situation: Spouse Feels Safe at Home: Yes Assistive Devices: Denture - Upper, Denture - Lower and Glasses Review of Systems Review of Systems: As per HPI, all other systems reviewed and negative Physical Exam Physical Exam: GENERAL: Comfortable, pleasant, no respiratory distress SKIN: Pallor, warm HEENT: Bespectacled, pale palpebral conjunctivae, no ptosis, dry buccal mucosa NECK : Supple, no tenderness CHEST : Decreased breath sounds, no tenderness HEART : RRR, no obvious murmurs ABDOMEN: Some distention, nontender EXTREMITIES : Minimal RLE swelling, no LE tenderness, no other conspicuous deformities noted NEUROLOGIC : Coherent, no facial asymmetry, no other gross focality Results & Data Results & Data Vital Signs (Past 12 Hours) Vital Signs Temp Pulse Resp BP Pulse Ox O2 Del Method 05/18/25 05:30 74 13 93 05/18/25 05:19 137/91 05/18/25 05:19 137/91 05/18/25 05:19 137/91 05/18/25 05:19 137/91 05/18/25 05:18 81 15 98 05/18/25 05:00 81 14 97 05/18/25 04:42 95 H 21 05/18/25 04:38 72 19 99 Room Air 05/18/25 04:18 72 14 98 05/18/25 03:54 78 13 99 05/18/25 03:53 138/64 05/18/25 03:49 84 05/18/25 03:49 138/55 L 05/18/25 03:46 36.6 C 82 18 138/55 L 99 Room Air Laboratory Results Laboratory Results WBC 2.45 K/ul (4.8-10.8) L 05/18/25 03:56 RBC 1.90 M/uL (4.70-6.10) L 05/18/25 03:56 Hgb 7.0 g/dl (14.0-18.0) L 05/18/25 03:56 POC Hgb 6.8 g/dl (14.0-18.0) L* 05/18/25 04:01 Hct 21.6 % (42.0-52.0) L 05/18/25 03:56 POC Hct 20 % (42-52) L* 05/18/25 04:01 MCV 113.7 fL (80.0-100.0) H 05/18/25 03:56 MCH 36.8 pg (25.0-34.0) H 05/18/25 03:56 MCHC 32.4 g/dL (32.0-36.0) 05/18/25 03:56 RDW Std Deviation 69.1 fL (36.4-46.3) H 05/18/25 03:56 RDW Coeff of Ele 16.5 % (11.5-14.5) H 05/18/25 03:56 Plt Count 48 K/uL (130-400) L 05/18/25 03:56 MPV 12.8 fL (9.4-12.4) H 05/18/25 03:56 Immature Gran % (Auto) 0.4 % 05/18/25 03:56 Neut % (Auto) 26.2 % 05/18/25 03:56 Lymph % (Auto) 52.2 % 05/18/25 03:56 [place] % (Auto) 18.4 % 05/18/25 03:56 Eos % (Auto) 2.4 % 05/18/25 03:56 Baso % (Auto) 0.4 % 05/18/25 03:56 Neut # (Auto) 0.64 K/uL (1.40-6.50) L* 05/18/25 03:56 Lymph # (Auto) 1.28 K/uL (1.20-3.40) 05/18/25 03:56 [place] # (Auto) 0.45 K/uL (0.11-0.59) 05/18/25 03:56 Eos # (Auto) 0.06 K/uL (0.00-0.50) 05/18/25 03:56 Baso # (Auto) 0.01 K/uL (0.00-0.20) 05/18/25 03:56 Immature Gran # (Auto) 0.01 K/uL (0.01-0.20) 05/18/25 03:56 Platelet Estimate Decreased (Normal) L 05/18/25 03:56 Polychromasia 2+ 05/18/25 03:56 Macrocytosis Present 05/18/25 03:56 Tear Drop Cells 1+ 05/18/25 03:56 Acanthocytes (Spur) 2+ 05/18/25 03:56 PT 11.9 Seconds (9.0-12.0) 05/18/25 03:56 INR 1.1 (0.9-1.1) 05/18/25 03:56 APTT 37 Seconds (21-31) H 05/18/25 03:56 PTT Ratio 1.4 05/18/25 03:56 POC Sodium 144 mmol/L (135-144) 05/18/25 04:01 Sodium 145 mmol/L (136-145) 05/18/25 03:56 POC Potassium 3.1 mmol/L (3.3-5.0) L 05/18/25 04:01 Potassium 3.2 mmol/L (3.5-5.1) L 05/18/25 03:56 POC Chloride 109 mmol/L (101-112) 05/18/25 04:01 Chloride 110 mmol/L (98-107) H 05/18/25 03:56 Carbon Dioxide 24 mmol/L (21-32) 05/18/25 03:56 POC Total CO2 20 mmol/L (24-31) L 05/18/25 04:01 Anion Gap 11 (3-11) 05/18/25 03:56 POC Anion Gap 20.0 mmol/L (16-25) 05/18/25 04:01 POC BUN 11 mg/dl (7-18) 05/18/25 04:01 BUN 15 mg/dl (6-23) 05/18/25 03:56 Creatinine 1.12 mg/dl (0.6-1.4) 05/18/25 03:56 POC Creatinine 1.2 mg/dl (0.6-1.3) 05/18/25 04:01 Est Cr Clr Drug Dosing 50.8 ml/min 05/18/25 03:56 eGFR 67.24 05/18/25 03:56 BUN/Creatinine Ratio 13.4 (10-20) 05/18/25 03:56 Glucose 101 mg/dl (70-99(Fasting)) H 05/18/25 03:56 POC Glucose (other) 96 mg/dl (70-99) 05/18/25 04:01 Calcium 7.8 mg/dl (8.6-10.3) L 05/18/25 03:56 POC Ioniz Calcium Anthony 1.04 mmol/l (1.12-1.32) L 05/18/25 04:01 Total Bilirubin 0.6 mg/dl (0.2-1.0) 05/18/25 03:56 AST 72 U/L (13-39) H 05/18/25 03:56 ALT 60 U/L (7-52) H 05/18/25 03:56 Alkaline Phosphatase 77 U/L (34-104) 05/18/25 03:56 Troponin I High Sens 12.5 pg/ml (0-20) 05/18/25 03:56 Total Protein 5.8 gm/dl (6.0-8.3) L 05/18/25 03:56 Albumin 3.0 gm/dl (3.4-5.0) L 05/18/25 03:56 Globulin 2.8 gm/dl (2.5-4.0) 05/18/25 03:56 Albumin/Globulin Ratio 1.1 (0.9-2) 05/18/25 03:56 Lipase 41 U/L (11-82) 05/18/25 03:56 SARS-CoV-2, RNA, NAAT NEGATIVE (NEGATIVE) 05/18/25 04:53 Blood Type B Positive 05/18/25 04:00 Antibody Screen NEGATIVE 05/18/25 04:00 Impressions Chest X-Ray 05/18/25 03:54 EXAM: XR chest 1V portable CLINICAL HISTORY: Nausea, bloody stool. TECHNIQUE: An X-ray image of the chest is obtained in AP projection. COMPARISON: No prior studies are available for comparison. FINDINGS: CVL noted at IVC. Pulmonary Parenchyma: Haziness with retricular markings at both lower lobes. No evidence of pleural effusion or pleural thickening. Heart and Mediastinum: Heart size and shape are normal. No mediastinal widening or masses. No hilar or mediastinal lymphadenopathy. Bony Thorax: Bony thorax appears intact without fractures or deformities. Soft Tissues: Soft tissues overlying the chest wall are unremarkable. IMPRESSION: 1. CVL noted at IVC. 2. Haziness with retricular markings at both lower lobes could represent Pulmonary congestion however clinical and lab correlation is advised to rule out pulmonary infection. Electronically signed by Jorge Villanueva 05-18-2025 05:01 AM Abdomen/Pelvis CTA 05/18/25 04:10 EXAM: CT angio abdomen pelvis w con CLINICAL HISTORY: AAA, bloody vomiting, on chemo, low plts TECHNIQUE: Contrast enhanced thin slice CT angiography scan of the abdominal aorta was performed with intravenous contrast. Angiographic images were processed, 3D MIP images were acquired for interpretation. Contiguous axial images were obtained. Reformatted coronal and sagittal images were also reviewed. If IV contrast material had not been administered, the likelihood of detecting abnormalities relevant to the patients condition would have been substantially decreased. CT scan was performed according to ALARA (as low as reasonable achievable). COMPARISON: none FINDINGS: Abdominal aorta is normal in course and opacification. Mildly prominent infrarenal abdominal aorta with a maximum caliber of ~3omm Diffuse atherosclerotic chanegs with eccentric calcifications through out visualised aorta, its visceral branches and bilateral iliac arteries with no hemodynamically significant stenosis. Origin of coeliac artery, superior mesenteric artery , bilateral main renal and lumbar arteries shows eccentric calcifications and are normal in caliber with no hemodynamically significant ostial stenosis noted. Bilateral common, external and internal iliac arteries are normal in course, caliber and opacification. Solid abdominal organs including liver, spleen, pancreas and bilateral kidneys reveal no significant abnormality. Bowel loops are grossly unremarkable. No evidence of ascites. Bilateral minimal pleural effusion with bibasal atelectasis changes Bilateral bosniak type I cysts Bilateral mild perinephric fat stranding Prostatomegaly Uncomplicated colonic diverticulosis Contracted gall bladder with mild edematous wall thickening. IMPRESSION: Mild fusiform dilatation of infrarenal aorta with a maximum caliber of ~30mm. Diffuse atherosclerotic chanegs with eccentric calcifications through out visualised aorta, its visceral branches and bilateral iliac arteries with no hemodynamically significant stenosis. 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 Electronically signed by Sergo Ozuna 05-18-2025 05:32 AM Diagnostic Findings EKG as per my interpretation :Rate 75, NSR, normal axis, T wave abnormalities inferior leads
[2025-05-18] MEDS ORDERED: ACETAMINOPHEN 500 MG TAB PO PRN (05:54)
[2025-05-18] MEDS ORDERED: PROMETHAZINE 6.25 MG/50.25 ML BAG IV PRN (05:54)
[2025-05-18 06:05] LABS: Magnesium 1.3 mg/dl (1.7-2.4)
[2025-05-18] MEDS: POTASSIUM CHLORIDE CRTAB 20 MEQ TABCR PO STA (06:43)
[2025-05-18] MEDS: MAGNESIUM SULFATE / D5W 1 GM/100 ML BAG IV SCH (08:17)
[2025-05-18] MEDS: FUROSEMIDE INJ 20 MG/2 ML VIAL IV ONE (08:17)
--- NOTE | 2025-05-18 08:21 | Ultrasound Report ---
Technique: Venous ultrasound evaluation was performed utilizing grayscale, color Doppler and wave form evaluation. Images were also obtained with and without compression Findings: The right common femoral, superficial femoral, popliteal, and visualized calf veins demonstrate normal anechoic lumens with full compressibility. Normal flow is seen on color Doppler images. Expected waveforms were produced with augmentation maneuvers Impression: No evidence of right leg deep venous thrombosis Electronically signed by Sandeep Norris 05-18-2025 08:20 AM
[2025-05-18 08:39] LABS: Appearance Urine Clear (Clear); Bacteria Urine Automated None Seen (None Seen); Cast Urine Automated 0-2 /lpf (0-2); Epithelial Cell Urine Auto 0-2 /hpf (0-2); Glucose Urine UA Negative (Negative); RBC Urine Automated 0-2 /hpf (0-2); WBC Urine Automated 0-5 /hpf (0-5)
[2025-05-18] MEDS ORDERED: GLUCOSE 10 TAB/TUBE PO PRN (08:39)
[2025-05-18] MEDS ORDERED: GLUCOSE 40% GEL 15 GM TUBE PO PRN (08:39)
[2025-05-18] MEDS ORDERED: DEXTROSE 50% 50 ML SYRINGE IV PRN (08:39)
[2025-05-18] MEDS ORDERED: CARBOHYDRATES FOR HYPOGLYCEMIA PO PRN (08:39)
[2025-05-18] MEDS ORDERED: GLUCAGON FOR INJ 1 MG VIAL SQ PRN (08:39)
[2025-05-18] MEDS ORDERED: Nursing to Pharmacy Communication SCH ×2 (08:45→10:30)
[2025-05-18] MEDS ORDERED: NON-FORMULARY MEDICATION (Budesonide-Glycopyr-Formoterol [Breztri Aerosphere] 160-9-4.8 mc INH SCH (09:00)
--- NOTE | 2025-05-18 09:28 | Gastrointestinal Consultation ---
Date of Consultation May 18, 2025 Assessment & Plan (1) Vomiting of blood: Pleasant man with hematemesis and pancytopenia. I suspect his chemotherapy is contributing to his pancytopenia so it is difficult to tell how much of his anemia is related to his hematemesis. Platelet count is a little low to do EGD unless it is really an emergency. Would like to see what happens with platelets over the weekend and decide about EGD early next week. We can step in at any time with EGD if it does become and emergency but will hold off if we can as we see what his platelet count does. I suspect his diarrhea is related to his chemotherapy but colonoscopy could be considered. History of Present Illness Reason for Consultation: vomiting blood Attending Physician: Pita Rosen MD History of Present Illness 79 year old man admitted with weakness. He has lung cancer diagnosed last July and has been on chemotherapy for it since August. He has had diarrhea for about ten days and yesterday after having a bowel movement he turned around and vomited some bright red blood. He did that a second time and then again thi s morning while getting a CT scan. He isn't certain how much it was as it diluted in the water. He did feel it was related to vomiting and not a nose bleed. He had been having nose bleeds up until about 6 weeks ago. Noted to have hgb of 7 on admit with WBC ~2.5K and platelets less than 50K. He has had colonoscopies with [facility] but does not recall ever having an EGD. He has no real GI complaints other than his diarrhea Allergies Allergy/AdvReac Type Severity Reaction Status Date / Time bee venom protein (honey bee) Allergy Severe ANAPHYLAXIS Verified 02/22/23 09:43 cephalexin [From Keflex] Allergy Unknown CAN'T Verified 02/22/23 09:43 MD CHIDI ADDED TO LIST Home Medications Medication Instructions Recorded Confirmed Type aspirin 81 mg tablet,delayed 81 mg PO QAM 04/22/20 05/18/25 History release (Aspir-) atorvastatin 80 mg tablet 80 mg PO 04/22/20 05/18/25 History cholecalciferol (vitamin D3) 25 2,000 unit PO QAM 04/22/20 05/18/25 History mcg (1,000 unit) capsule (Vitamin D3) epinephrine 0.3 mg/0.3 mL 0.3 mg IM DIRECTED PRN Allergic 04/22/20 05/18/25 History injection, auto-injector Reaction metformin 500 mg tablet 500 mg PO BIDM 04/22/20 05/18/25 History metoprolol tartrate 50 mg tablet 50 mg PO BID 04/22/20 05/18/25 History nitroglycerin 0.4 mg sublingual 0.4 mg sublingual DIRECTED PRN 04/22/20 05/18/25 History tablet (Nitrostat) Chest Pain tamsulosin 0.4 mg capsule 0.4 mg PO QAM 04/22/20 05/18/25 History clotrimazole-betamethasone 1 1 applic topical BID PRN .flare ups 02/03/23 05/18/25 History %-0.05 % topical cream isosorbide mononitrate 30 mg 30 mg PO QAM 02/03/23 05/18/25 History tablet,extended release 24 hr lisinopril 2.5 mg tablet 2.5 mg PO QPM 02/03/23 05/18/25 History vitamin B complex 1 tab PO QAM 02/03/23 05/18/25 History albuterol sulfate 90 mcg/actuation 2 inh inhalation Q4H PRN shortness 05/18/25 05/18/25 History aerosol inhaler of breath or wheezing budesonide 160 mcg-glycopyr 9 2 inh inhalation BID 05/18/25 05/18/25 History mcg-formot 4.8 mcg/actuation HFA inhaler (Breztri Aerosphere) folic acid 1 mg tablet 1 mg PO DAILY 05/18/25 05/18/25 History ondansetron 4 mg disintegrating 8 mg PO Q8H PRN nausea and vomiting 05/18/25 05/18/25 History tablet prochlorperazine maleate 10 mg 10 mg PO Q6H PRN Nausea And 05/18/25 05/18/25 History tablet Vomiting trazodone 50 mg tablet 50 mg PO HS 05/18/25 05/18/25 History Patient History Medical History PAD (peripheral artery disease) Mild bilateral ICA disease (per 2019 carotid duplex) Arterial doppler of LE showed mild PAD on right side (April 2021) History of Mohs micrographic surgery for skin cancer History of gout History of melanoma Hyperlipidemia BPH (benign prostatic hyperplasia) Myocardial Infarction 1996 > anterior wall SC Kidney stone 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 Surgical History History of urologic surgery History of cancer surgery bladder History of cystoscopy History of tooth extraction History of lithotripsy recent--08/21/21 @ [place] History of cardiac cath 2017 > 1 STENT > [facility] Hx of colonoscopy History of lumbar spinal fusion 2010 1968 Family History Father Diabetes Grandmother (Paternal) Diabetes Other Cancer Coronary heart disease Hypertension No family history of adverse response to anesthesia Social History Smoking Status: Current every day smoker Tobacco Type: Cigarettes Cigarettes Per Day: 7; Second Hand Exposure: No; Do You Dip or Chew Tobacco: No; Hx Alcohol Use: Yes Alcohol type: beer Hx Substance Use: No Preferred Language: Greenlandic Communication Ability: Effective Physician Relations Representative Required: No Beliefs That Will Affect Care: None marital status: Current Living Situation: Spouse Feels Safe at Home: Yes Assistive Devices: Denture - Upper, Denture - Lower and Glasses Review of Systems Review of Systems: All systems reviewed & are unremarkable except as noted in HPI & below Physical Exam Physical Exam: Pleasant man in no distress Constitutional: WD/WN, vitals as above Neck: trachea midline, no thyromegaly Respiratory: normal respiratory effort, lungs clear to auscultation Cardiovascular: RRR, no murmur, no edema Gastrointestinal (Abdomen): normal bowel sounds, soft, nontender, no hepatosplenomegaly Results & Data Vital Signs (Past 12 Hours) Vital Signs Temp Pulse Pulse Resp BP BP Pulse Ox 05/18/25 08:44 36.4 C L 70 18 132/60 96 05/18/25 08:00 133/63 05/18/25 08:00 133/63 05/18/25 07:30 144/66 H 05/18/25 07:30 144/66 H 05/18/25 07:24 59 L 100 05/18/25 07:21 60 13 100 05/18/25 07:00 141/74 H 05/18/25 07:00 141/74 H 05/18/25 06:49 36.7 C 62 18 116/74 97 05/18/25 06:45 106/74 05/18/25 06:45 106/74 05/18/25 06:45 36.8 C 64 20 106/74 100 05/18/25 06:42 62 15 100 05/18/25 06:30 139/74 05/18/25 06:30 139/74 05/18/25 06:30 139/74 05/18/25 06:30 61 16 100 05/18/25 06:30 36.7 C 64 17 139/74 100 05/18/25 06:21 119/78 05/18/25 06:21 119/78 05/18/25 06:15 36.9 C 65 18 119/41 L 100 05/18/25 05:47 69 14 95 05/18/25 05:40 119/41 L 05/18/25 05:38 81 19 05/18/25 05:30 74 13 93 05/18/25 05:19 137/91 05/18/25 05:19 137/91 05/18/25 05:19 137/91 05/18/25 05:19 137/91 05/18/25 05:18 81 15 98 05/18/25 05:00 81 14 97 05/18/25 04:42 95 H 21 05/18/25 04:38 72 19 99 05/18/25 04:18 72 14 98 05/18/25 03:54 78 13 99 05/18/25 03:53 138/64 05/18/25 03:49 84 05/18/25 03:49 138/55 L 05/18/25 03:46 36.6 C 82 18 138/55 L 99 O2 Del Method O2 Flow Rate 05/18/25 08:44 Room Air 05/18/25 08:00 05/18/25 08:00 05/18/25 07:30 05/18/25 07:30 05/18/25 07:24 05/18/25 07:21 05/18/25 07:00 05/18/25 07:00 05/18/25 06:49 2 05/18/25 06:45 05/18/25 06:45 05/18/25 06:45 2 05/18/25 06:42 05/18/25 06:30 05/18/25 06:30 05/18/25 06:30 05/18/25 06:30 05/18/25 06:30 2 05/18/25 06:21 05/18/25 06:21 05/18/25 06:15 05/18/25 05:47 05/18/25 05:40 05/18/25 05:38 05/18/25 05:30 05/18/25 05:19 05/18/25 05:19 05/18/25 05:19 05/18/25 05:19 05/18/25 05:18 05/18/25 05:00 05/18/25 04:42 05/18/25 04:38 Room Air 05/18/25 04:18 05/18/25 03:54 05/18/25 03:53 05/18/25 03:49 05/18/25 03:49 05/18/25 03:46 Room Air Laboratory Results 05/18/25 05/18/25 05/18/25 Range/Units 08:25 06:09 04:53 WBC (4.8-10.8) K/ul RBC (4.70-6.10) M/uL Hgb (14.0-18.0) g/dl POC Hgb (14.0-18.0) g/dl Hct (42.0-52.0) % POC Hct (42-52) % MCV (80.0-100.0) fL MCH (25.0-34.0) pg MCHC (32.0-36.0) g/dL RDW Std Deviation (36.4-46.3) fL RDW Coeff of Ele (11.5-14.5) % Plt Count (130-400) K/uL MPV (9.4-12.4) fL Immature Gran % (Auto) % Neut % (Auto) % Lymph % (Auto) % [place] % (Auto) % Eos % (Auto) % Baso % (Auto) % Neut # (Auto) (1.40-6.50) K/uL Lymph # (Auto) (1.20-3.40) K/uL [place] # (Auto) (0.11-0.59) K/uL Eos # (Auto) (0.00-0.50) K/uL Baso # (Auto) (0.00-0.20) K/uL Immature Gran # (Auto) (0.01-0.20) K/uL Platelet Estimate (Normal) Polychromasia Macrocytosis Tear Drop Cells Acanthocytes (Spur) PT (9.0-12.0) Seconds INR (0.9-1.1) APTT (21-31) Seconds PTT Ratio POC Sodium (135-144) mmol/L Sodium (136-145) mmol/L POC Potassium (3.3-5.0) mmol/L Potassium (3.5-5.1) mmol/L POC Chloride (101-112) mmol/L Chloride (98-107) mmol/L Carbon Dioxide (21-32) mmol/L POC Total CO2 (24-31) mmol/L Anion Gap (3-11) POC Anion Gap (16-25) mmol/L POC BUN (7-18) mg/dl BUN (6-23) mg/dl Creatinine (0.6-1.4) mg/dl POC Creatinine (0.6-1.3) mg/dl Est Cr Clr Drug Dosing ml/min eGFR BUN/Creatinine Ratio (10-20) Glucose (70-99(Fasting)) mg/dl POC Glucose (other) (70-99) mg/dl Calcium (8.6-10.3) mg/dl POC Ioniz Calcium Anthony (1.12-1.32) mmol/l Magnesium (1.7-2.4) mg/dl Total Bilirubin (0.2-1.0) mg/dl AST (13-39) U/L ALT (7-52) U/L Alkaline Phosphatase (34-104) U/L Troponin I High Sens (0-20) pg/ml B-Natriuretic Peptide (0-100) pg/ml Total Protein (6.0-8.3) gm/dl Albumin (3.4-5.0) gm/dl Globulin (2.5-4.0) gm/dl Albumin/Globulin Ratio (0.9-2) Lipase (11-82) U/L Urine Color Yellow Urine Appearance Clear (Clear) Urine pH 6.5 (4.5-7.5) Ur Specific Mcclelland > 1.045 H (1.000-1.030) Urine Protein Trace H (Negative) Urine Glucose (UA) Negative (Negative) Urine Ketones Negative (Negative) Urine Blood Negative (Negative) Urine Nitrite Negative (Negative) Urine Bilirubin Negative (Negative) Urine Urobilinogen Negative (Negative) Ur Leukocyte Esterase Negative (Negative) Urine WBC (Auto) 0-5 (0-5) /hpf Urine RBC (Auto) 0-2 (0-2) /hpf U Hyaline Cast (Auto) 0-2 (0-2) /lpf U Epithel Cells (Auto) 0-2 (0-2) /hpf Urine Bacteria (Auto) None Seen (None Seen) Urine Comment SARS-CoV-2, RNA, NAAT NEGATIVE (NEGATIVE) Blood Type Blood Type Recheck B Positive Antibody Screen Crossmatch 05/18/25 05/18/25 05/18/25 Range/Units 04:01 04:00 03:56 WBC 2.45 L (4.8-10.8) K/ul RBC 1.90 L (4.70-6.10) M/uL Hgb 7.0 L (14.0-18.0) g/dl POC Hgb 6.8 L* (14.0-18.0) g/dl Hct 21.6 L (42.0-52.0) % POC Hct 20 L* (42-52) % MCV 113.7 H (80.0-100.0) fL MCH 36.8 H (25.0-34.0) pg MCHC 32.4 (32.0-36.0) g/dL RDW Std Deviation 69.1 H (36.4-46.3) fL RDW Coeff of Ele 16.5 H (11.5-14.5) % Plt Count 48 L (130-400) K/uL MPV 12.8 H (9.4-12.4) fL Immature Gran % (Auto) 0.4 % Neut % (Auto) 26.2 % Lymph % (Auto) 52.2 % [place] % (Auto) 18.4 % Eos % (Auto) 2.4 % Baso % (Auto) 0.4 % Neut # (Auto) 0.64 L* (1.40-6.50) K/uL Lymph # (Auto) 1.28 (1.20-3.40) K/uL [place] # (Auto) 0.45 (0.11-0.59) K/uL Eos # (Auto) 0.06 (0.00-0.50) K/uL Baso # (Auto) 0.01 (0.00-0.20) K/uL Immature Gran # (Auto) 0.01 (0.01-0.20) K/uL Platelet Estimate Decreased L (Normal) Polychromasia 2+ Macrocytosis Present Tear Drop Cells 1+ Acanthocytes (Spur) 2+ PT 11.9 (9.0-12.0) Seconds INR 1.1 (0.9-1.1) APTT 37 H (21-31) Seconds PTT Ratio 1.4 POC Sodium 144 (135-144) mmol/L Sodium 145 (136-145) mmol/L POC Potassium 3.1 L (3.3-5.0) mmol/L Potassium 3.2 L (3.5-5.1) mmol/L POC Chloride 109 (101-112) mmol/L Chloride 110 H (98-107) mmol/L Carbon Dioxide 24 (21-32) mmol/L POC Total CO2 20 L (24-31) mmol/L Anion Gap 11 (3-11) POC Anion Gap 20.0 (16-25) mmol/L POC BUN 11 (7-18) mg/dl BUN 15 (6-23) mg/dl Creatinine 1.12 (0.6-1.4) mg/dl POC Creatinine 1.2 (0.6-1.3) mg/dl Est Cr Clr Drug Dosing 50.8 ml/min eGFR 67.24 BUN/Creatinine Ratio 13.4 (10-20) Glucose 101 H (70-99(Fasting)) mg/dl POC Glucose (other) 96 (70-99) mg/dl Calcium 7.8 L (8.6-10.3) mg/dl POC Ioniz Calcium Anthony 1.04 L (1.12-1.32) mmol/l Magnesium 1.3 L (1.7-2.4) mg/dl Total Bilirubin 0.6 (0.2-1.0) mg/dl AST 72 H (13-39) U/L ALT 60 H (7-52) U/L Alkaline Phosphatase 77 (34-104) U/L Troponin I High Sens 12.5 (0-20) pg/ml B-Natriuretic Peptide 586 H (0-100) pg/ml Total Protein 5.8 L (6.0-8.3) gm/dl Albumin 3.0 L (3.4-5.0) gm/dl Globulin 2.8 (2.5-4.0) gm/dl Albumin/Globulin Ratio 1.1 (0.9-2) Lipase 41 (11-82) U/L Urine Color Urine Appearance (Clear) Urine pH (4.5-7.5) Ur Specific Mcc[place]and (1.000-1.030) Urine Protein (Negative) Urine Glucose (UA) (Negative) Urine Ketones (Negative) Urine Blood (Negative) Urine Nitrite (Negative) Urine Bilirubin (Negative) Urine Urobilinogen (Negative) Ur Leukocyte Esterase (Negative) Urine WBC (Auto) (0-5) /hpf Urine RBC (Auto) (0-2) /hpf U Hyaline Cast (Auto) (0-2) /lpf U Epithel Cells (Auto) (0-2) /hpf Urine Bacteria (Auto) (None Seen) Urine Comment SARS-CoV-2, RNA, NAAT (NEGATIVE) Blood Type B Positive Blood Type Recheck Antibody Screen NEGATIVE Crossmatch See Detail Diagnostic Findings Chest X-Ray 05/18/25 03:54 EXAM: XR chest 1V portable CLINICAL HISTORY: Nausea, bloody stool. TECHNIQUE: An X-ray image of the chest is obtained in AP projection. COMPARISON: No prior studies are available for comparison. FINDINGS: CVL noted at IVC. Pulmonary Parenchyma: Haziness with retricular markings at both lower lobes. No evidence of pleural effusion or pleural thickening. Heart and Mediastinum: Heart size and shape are normal. No mediastinal widening or masses. No hilar or mediastinal lymphadenopathy. Bony Thorax: Bony thorax appears intact without fractures or deformities. Soft Tissues: Soft tissues overlying the chest wall are unremarkable. IMPRESSION: 1. CVL noted at IVC. 2. Haziness with retricular markings at both lower lobes could represent Pulmonary congestion however clinical and lab correlation is advised to rule out pulmonary infection. Electronically signed by Jorge Villanueva 05-18-2025 05:01 AM Abdomen/Pelvis CTA 05/18/25 04:10 EXAM: CT angio abdomen pelvis w con CLINICAL HISTORY: AAA, bloody vomiting, on chemo, low plts TECHNIQUE: Contrast enhanced thin slice CT angiography scan of the abdominal aorta was performed with intravenous contrast. Angiographic images were processed, 3D MIP images were acquired for interpretation. Contiguous axial images were obtained. Reformatted coronal and sagittal images were also reviewed. If IV contrast material had not been administered, the likelihood of detecting abnormalities relevant to the patients condition would have been substantially decreased. CT scan was performed according to ALARA (as low as reasonable achievable). COMPARISON: none FINDINGS: Abdominal aorta is normal in course and opacification. Mildly prominent infrarenal abdominal aorta with a maximum caliber of ~3omm Diffuse atherosclerotic chanegs with eccentric calcifications through out visualised aorta, its visceral branches and bilateral iliac arteries with no hemodynamically significant stenosis. Origin of coeliac artery, superior mesenteric artery , bilateral main renal and lumbar arteries shows eccentric calcifications and are normal in caliber with no hemodynamically significant ostial stenosis noted. Bilateral common, external and internal iliac arteries are normal in course, caliber and opacification. Solid abdominal organs including liver, spleen, pancreas and bilateral kidneys reveal no significant abnormality. Bowel loops are grossly unremarkable. No evidence of ascites. Bilateral minimal pleural effusion with bibasal atelectasis changes Bilateral bosniak type I cysts Bilateral mild perinephric fat stranding Prostatomegaly Uncomplicated colonic diverticulosis Contracted gall bladder with mild edematous wall thickening. IMPRESSION: Mild fusiform dilatation of infrarenal aorta with a maximum caliber of ~30mm. Diffuse atherosclerotic chanegs with eccentric calcifications through out visualised aorta, its visceral branches and bilateral iliac arteries with no hemodynamically significant stenosis. 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 Electronically signed by Sergo Ozuna 05-18-2025 05:32 AM Venous Doppler Study 05/18/25 07:11 Technique: Venous ultrasound evaluation was performed utilizing grayscale, color Doppler and wave form evaluation. Images were also obtained with and without compression Findings: The right common femoral, superficial femoral, popliteal, and visualized calf veins demonstrate normal anechoic lumens with full compressibility. Normal flow is seen on color Doppler images. Expected waveforms were produced with augmentation maneuvers Impression: No evidence of right leg deep venous thrombosis Electronically signed by Sandeep Norris 05-18-2025 08:20 AM (1) Vomiting of blood Nausea presence: with nausea Qualified Code(s): K92.0 - Hematemesis
[2025-05-18] MEDS: INSULIN ASPART PER UNIT CHARGE SC SCH ×3 (10:10→13:44)
[2025-05-18] MEDS: FLUTICASONE FUROATE 200MCG 14 PUFFS/INHALER INH SCH (10:11)
[2025-05-18] MEDS: UMECLIDINIUM/VILANTEROL 62.5/25MCG 7 PUFFS/INHALER INH SCH (10:11)
[2025-05-18] MEDS: TAMSULOSIN HCL 0.4 MG CAP PO SCH (10:12)
[2025-05-18] MEDS: FOLIC ACID 1 MG TAB PO SCH (10:13)
[2025-05-18] MEDS: VITAMIN B COMPLEX TAB PO SCH (10:13)
[2025-05-18] MEDS: ISOSORBIDE MONO EXTENDED REL 30 MG TABCR PO SCH (10:13)
[2025-05-18] MEDS: METOPROLOL TARTRATE 25 MG TAB PO SCH (10:32)
--- NOTE | 2025-05-18 13:33 | Electrocardiogram Report ---
Test Reason : Blood Pressure : */* mmHG Vent. Rate : 77 BPM Atrial Rate : 77 BPM P-R Int : 144 ms QRS Dur : 98 ms QT Int : 400 ms P-R-T Axes : 33 63 5 degrees QTcB Int : 452 ms Sinus rhythm with Premature ventricular complexes Otherwise normal ECG When compared with ECG of 05-Mar-2022 23:09, Premature ventricular complexes is now Present Confirmed by Danilo Catherine ([id number]) on 05/18/2025 1:33:22 PM Referred By: REFERRED SELF Confirmed By: Danilo Catherine
--- NOTE | 2025-05-18 14:07 | Hospitalist Progress Note ---
Date of Service May 18, 2025 Assessment & Plan (1) UGIB (upper gastrointestinal bleed): Plan: Assessment and plan below following discussion of case with ED provider and reviewing patient history/pertinent normal/abnormal diagnostic test results. Acute on chronic anemia secondary to UGIB- sudden onset of hematemesis night before admission In the setting of aspirin Rx,secondary to chemotherapy Differentials include esophagitis, gastritis, PUD Admitting hemoglobin was 6.8 and platelet 48received 1 unit of blood transfusion and 1 platelet pheresis Hemoglobin this morning is 7.3 and platelet 56 Appreciate GI input and recommendation for ongoing conservative management and no plan for EGD Patient remains stable without any more episodes of hematemesis does not have any pain in the abdomen Continue IV PPI Will start diet Metastatic cancer of unknown primary Diagnosed in July of last year and under care of Freddy Bruce oncologist Has been getting chemotherapy every 3 weeks since August of last year Received chemo last week New onset transaminitis, with patient without abdominal pain complaints Pancytopenia Secondary to chemotherapy Complicated by GI bleed Received 1 unit of PRBC one unit of platelet pheresis PAF not on anticoagulation as per patient preference Valvular heart disease (mild MR/TR) hx PVD - remains stable without any cardiac symptoms Hypertension, slightly elevated Hyperlipidemia on statin Rx DM2 on oral medications, well-controlled as of recent hemoglobin A1c of 6 last January 2025 ISS BG goal 1 10-1 40 COPD, lung status at baseline H/O bladder cancer status post surgery Ongoing tobacco abuse -RLE venous Dopplers rule out DVT-No DVT Nicotine patch as needed DVT prophylaxis. SCDs if no blood clot on venous Dopplers Full code Text document was generated using [employer] voice recognition software. It may contain grammatical or spelling errors. Kindly contact undersigned for clarification of any documentation item in question. Admission and Anticipated Discharge Date Admission Date: May 18, 2025 Subjective 05/18/2025 The patient was seen and examined in medical telemetry unit He was admitted with hematemesis and he is status post chemotherapy last week He has been feeling much better and denies any significant symptoms following admission Review of Systems Review of Systems: All systems reviewed and are unremarkable except as noted below Physical Exam Physical Exam: Lying in bed without any acute distress Constitutional: well developed and well nourished; not ill appearing Eyes: PERRL, conjunctivae normal, anicteric sclerae ENMT: external ear and nose normal, oropharynx normal Neck: trachea midline, no thyromegaly Respiratory: no respiratory distress Auscultation: lungs clear to auscultation bilaterally Cardiovascular: Rate/Rhythm: regular rate and regular rhythm Heart Sounds: normal S1 and normal S2; no murmur Extremities: + edema ( trace edema bilaterally) Gastrointestinal (Abdomen): Inspection/Auscultation: normal bowel sounds; abdomen not distended Percussion/Palpation: abdomen soft; abdomen nontender Musculoskeletal: No acute arthritis involving any of the joint Neurologic: normal touch/pain/proprioception and moves all extremities; no f ocal motor deficits Lymphatic: no cervical or axillary lymphadenopathy Results & Data Results & Data Vital Signs (Past 12 Hours) Vital Signs Temp Pulse Pulse Resp BP BP Pulse Ox 05/18/25 12:15 36.6 C 62 18 122/59 L 97 05/18/25 11:31 36.6 C 59 L 18 129/62 100 05/18/25 11:01 36.6 C 63 18 138/67 100 05/18/25 11:00 36.6 C 84 18 139/56 L 100 05/18/25 10:46 36.5 C 60 18 139/56 L 100 05/18/25 10:31 36.5 C 62 18 146/69 H 99 05/18/25 08:44 36.4 C L 70 18 132/60 96 05/18/25 08:00 133/63 05/18/25 08:00 133/63 05/18/25 07:30 144/66 H 05/18/25 07:30 144/66 H 05/18/25 07:24 59 L 100 05/18/25 07:21 60 13 100 05/18/25 07:00 141/74 H 05/18/25 07:00 141/74 H 05/18/25 06:49 36.7 C 62 18 116/74 97 05/18/25 06:45 106/74 05/18/25 06:45 106/74 05/18/25 06:45 36.8 C 64 20 106/74 100 05/18/25 06:42 62 15 100 05/18/25 06:30 139/74 05/18/25 06:30 139/74 05/18/25 06:30 139/74 05/18/25 06:30 61 16 100 05/18/25 06:30 36.7 C 64 17 139/74 100 05/18/25 06:21 119/78 05/18/25 06:21 119/78 05/18/25 06:15 36.9 C 65 18 119/41 L 100 05/18/25 05:47 69 14 95 05/18/25 05:40 119/41 L 05/18/25 05:38 81 19 05/18/25 05:30 74 13 93 05/18/25 05:19 137/91 05/18/25 05:19 137/91 05/18/25 05:19 137/91 05/18/25 05:19 137/91 05/18/25 05:18 81 15 98 05/18/25 05:00 81 14 97 05/18/25 04:42 95 H 21 05/18/25 04:38 72 19 99 05/18/25 04:18 72 14 98 05/18/25 03:54 78 13 99 05/18/25 03:53 138/64 05/18/25 03:49 84 05/18/25 03:49 138/55 L 05/18/25 03:46 36.6 C 82 18 138/55 L 99 O2 Del Method O2 Flow Rate 05/18/25 12:15 05/18/25 11:31 05/18/25 11:01 05/18/25 11:00 05/18/25 10:46 05/18/25 10:31 05/18/25 08:44 Room Air 05/18/25 08:00 05/18/25 08:00 05/18/25 07:30 05/18/25 07:30 05/18/25 07:24 05/18/25 07:21 05/18/25 07:00 05/18/25 07:00 05/18/25 06:49 2 05/18/25 06:45 05/18/25 06:45 05/18/25 06:45 2 05/18/25 06:42 05/18/25 06:30 05/18/25 06:30 05/18/25 06:30 05/18/25 06:30 05/18/25 06:30 2 05/18/25 06:21 05/18/25 06:21 05/18/25 06:15 05/18/25 05:47 05/18/25 05:40 05/18/25 05:38 05/18/25 05:30 05/18/25 05:19 05/18/25 05:19 05/18/25 05:19 05/18/25 05:19 05/18/25 05:18 05/18/25 05:00 05/18/25 04:42 05/18/25 04:38 Room Air 05/18/25 04:18 05/18/25 03:54 05/18/25 03:53 05/18/25 03:49 05/18/25 03:49 05/18/25 03:46 Room Air Laboratory Results Short CBC 05/18/25 05/18/25 Range/Units 03:56 14:06 WBC 2.45 L 2.73 L (4.8-10.8) K/ul Hgb 7.0 L 7.3 L (14.0-18.0) g/dl Hct 21.6 L 22.1 L (42.0-52.0) % Plt Count 48 L 56 L (130-400) K/uL BMP 05/18/25 03:56 Sodium 145 Potassium 3.2 L Chloride 110 H Carbon Dioxide 24 BUN 15 Creatinine 1.12 Glucose 101 H Calcium 7.8 L Liver Function 05/18/25 Range/Units 03:56 Total Bilirubin 0.6 (0.2-1.0) mg/dl AST 72 H (13-39) U/L ALT 60 H (7-52) U/L Alkaline Phosphatase 77 (34-104) U/L Albumin 3.0 L (3.4-5.0) gm/dl Urine 05/18/25 Range/Units 08:25 Urine Color Yellow Urine Appearance Clear (Clear) Urine pH 6.5 (4.5-7.5) Ur Specific [place]onson > 1.045 H (1.000-1.030) Urine Protein Trace H (Negative) Urine Glucose (UA) Negative (Negative) Medications Administered Current Inpatient Medications Acetaminophen (Acetaminophen 500 Mg Tab) 500 mg PO Q6H PRN PRN Reason: fever/pain Stop: 06/17/25 05:53 Dextrose (Dextrose 50% 50 Ml Syringe) 25 - 50 ml IV UD PRN; Protocol PRN Reason: Hypoglycemia Protocol Stop: 06/17/25 08:38 Fluticasone Furoate (Fluticasone Furoate 200mcg 14 Puffs/Inhaler) 1 puffs INH DAILY [facility] Stop: 06/17/25 08:59 Last Admin: 05/18/25 10:11 Dose: 1 puffs Folic Acid (Folic Acid 1 Mg Tab) 1 mg PO DAILY [facility] Stop: 06/17/25 08:59 Last Admin: 05/18/25 10:13 Dose: 1 mg Glucagon (Glucagon For Inj 1 Mg Vial) 1 mg SQ UD PRN; Protocol PRN Reason: Hypoglycemia Protocol Stop: 06/17/25 08:38 Glucose (Glucose 40% Gel 15 Gm Tube) 15 - 30 gm PO UD PRN; Protocol PRN Reason: Hypoglycemia Protocol Stop: 06/17/25 08:38 Glucose (Glucose 10 Tab/Tube) 4 - 8 tab PO UD PRN; Protocol PRN Reason: Hypoglycemia Protocol Stop: 06/17/25 08:38 Pantoprazole Sodium 40 mg/ (Dextrose) 100 mls @ 20 mls/hr IV Q5H [facility] Stop: 06/17/25 04:44 Last Admin: 05/18/25 10:14 Dose: 8 mg/hr, 20 mls/hr Promethazine HCl (Phenergan) 6.25 mg in 50.25 mls @ 201 mls/hr IV Q6H PRN PRN Reason: Nausea And Vomiting Stop: 06/17/25 05:53 Insulin Aspart (Insulin Aspart Per Unit Charge) 0 units SC ACHS [facility] Stop: 06/17/25 08:44 Last Admin: 05/18/25 13:44 Dose: 2 units Isosorbide Mononitrate (Isosorbide [place] Extended Rel 30 Mg Tabcr) 30 mg PO QAM [facility] Stop: 06/17/25 08:59 Last Admin: 05/18/25 10:13 Dose: 30 mg Lisinopril (Lisinopril 2.5 Mg Tab) 2.5 mg PO QPM [facility] Stop: 06/17/25 20:59 Metoprolol Tartrate (Metoprolol Tartrate 25 Mg Tab) 25 mg PO BID [facility] Stop: 06/17/25 08:59 Last Admin: 05/18/25 10:32 Dose: 25 mg Miscellaneous (Carbohydrates For Hypoglycemia ) 15 - 30 gm PO UD PRN PRN Reason: Hypoglycemia Protocol Stop: 06/17/25 08:38 Oxycodone HCl (Oxycodone Hcl Ir 5 Mg Tab (Immediate Release)) 5 mg PO Q4H PRN PRN Reason: Pain Stop: 06/01/25 05:53 Tamsulosin HCl (Tamsulosin Hcl 0.4 Mg Cap) 0.4 mg PO QAM [facility] Stop: 06/17/25 08:59 Last Admin: 05/18/25 10:12 Dose: 0.4 mg Trazodone HCl (Trazodone Hcl 50 Mg Tab) 50 mg PO [facility] Stop: 06/17/25 20:59 Umeclidinium/Vilanterol (Umeclidinium/Vilanterol 62.5/25mcg 7 Puffs/Inhaler) 1 puffs INH DAILY [facility] Stop: 06/17/25 08:59 Last Admin: 05/18/25 10:11 Dose: 1 puffs Vitamin B Complex (Vitamin B Complex Tab) 1 tab PO QAM [facility] Stop: 06/17/25 08:59 Last Admin: 05/18/25 10:13 Dose: 1 tab
[2025-05-18 14:21] LABS: Hematocrit (blood only) 22.1 % (42.0-52.0); Hemoglobin 7.3 g/dl (14.0-18.0); Mean Corpuscular Hemoglobin 36.1 pg (25.0-34.0); Mean Corpuscular Volume 109.4 fL (80.0-100.0); Platelet Count 56 K/uL (130-400); RDW Standard Deviation 73.3 fL (36.4-46.3); Red Blood Count 2.02 M/uL (4.70-6.10); White Blood Count 2.73 K/ul (4.8-10.8)
[2025-05-18 14:44] LABS: Ovalocytes 1+; Polychromasia 1+
[2025-05-18 14:45] LABS: Immature Granulocytes # (auto) 0.05 K/uL (0.01-0.20); Immature Granulocytes % (auto) 1.8 %
[2025-05-19 08:19] LABS: Hematocrit (blood only) 21.8 % (42.0-52.0); Hemoglobin 7.1 g/dl (14.0-18.0); Mean Corpuscular Hemoglobin 36.0 pg (25.0-34.0); Mean Corpuscular Volume 110.7 fL (80.0-100.0); Platelet Count 57 K/uL (130-400); RDW Standard Deviation 72.4 fL (36.4-46.3); Red Blood Count 1.97 M/uL (4.70-6.10); White Blood Count 2.59 K/ul (4.8-10.8)
[2025-05-19 08:37] LABS: Anion Gap 6.0 (3-11); Blood Urea Nitrogen 7.0 mg/dl (6-23); Calcium 7.3 mg/dl (8.6-10.3); Carbon Dioxide 27.0 mmol/L (21-32); Chloride 111.0 mmol/L (98-107); Creatinine Clr Calc Pharmacy 52.2 ml/min; Glucose 94.0 mg/dl (70-99(Fasting)); Magnesium 1.7 mg/dl (1.7-2.4); Potassium 3.4 mmol/L (3.5-5.1); Sodium 144.0 mmol/L (136-145)
--- NOTE | 2025-05-19 08:48 | Gastroenterology Progress Note ---
Date of Service May 19, 2025 Assessment & Plan (1) UGIB (upper gastrointestinal bleed): Plan: Will tentatively plan EGD for tomorrow if platelet count is good enough. I think most of his problems with his blood count are related to BM suppression related to chemo. He has outside pressing issues with his spouse that he needs to be out of here next week for. Possibly he could leave without EGD but probably best to have EGD before discharge. Admission and Anticipated Discharge Date Admission Date: May 18, 2025 Subjective Feeling well. No further vomiting and/or bleeding. Platelet count 57K which is stable from yesterday after infusion. Hemoglobin and WBC are stable. Physical Exam Physical Exam: He looks well Constitutional: WD/WN, vitals as above Results & Data Vital Signs (Past 12 Hours) Vital Signs Temp Pulse Pulse Resp BP Pulse Ox O2 Del Method 05/19/25 07:32 36.6 C 49 L 18 109/54 L 92 Room Air 05/19/25 03:11 36.7 C 56 L 16 111/51 L 94 Room Air 05/18/25 23:27 36.5 C 68 16 121/56 L 92 Room Air 05/18/25 21:44 58 L
[2025-05-19 09:27] LABS: Acanthocytes 1+; Immature Granulocytes # (auto) 0.01 K/uL (0.01-0.20); Immature Granulocytes % (auto) 0.4 %; Macrocytosis Present; Polychromasia 1+
[2025-05-19] MEDS: POTASSIUM CHLORIDE CRTAB 20 MEQ TABCR PO STA (09:30)
--- NOTE | 2025-05-19 11:19 | Hospitalist Progress Note ---
Date of Service May 19, 2025 Assessment & Plan (1) UGIB (upper gastrointestinal bleed): Plan: Assessment and plan below following discussion of case with ED provider and reviewing patient history/pertinent normal/abnormal diagnostic test results. Acute on chronic anemia secondary to UGIB- sudden onset of hematemesis night before admission In the setting of aspirin Rx,secondary to chemotherapy Differentials include esophagitis, gastritis, PUD Admitting hemoglobin was 6.8 and platelet 48received 1 unit of blood transfusion and 1 platelet pheresis Hemoglobin this morning is 7.3 and platelet 56 Appreciate GI input and recommendation for ongoing conservative management and no plan for EGD Patient remains stable without any more episodes of hematemesis does not have any pain in the abdomen Continue IV PPI Will start diet Normal hemodialysis and hemoglobin remains stable at 7.1 following 1 unit of blood transfusion on admission GI is planning for possible endoscopy tomorrow Will monitor hemoglobin and if stable may be discharged following EGD tomorrow Metastatic cancer of unknown primary Diagnosed in July of last year and under care of Dr. Coleman [facility] oncologist Has been getting chemotherapy every 3 weeks since August of last year Received chemo last week New onset transaminitis, with patient without abdominal pain complaints Strongly advised to keep appointment with oncologist as an outpatient Pancytopenia Secondary to chemotherapy Complicated by GI bleed Received 1 unit of PRBC one unit of platelet pheresis just Platelet count remains stable at 57 PAF not on anticoagulation as per patient preference Valvular heart disease (mild MR/TR) hx PVD - remains stable without any cardiac symptoms Hypertension, slightly elevated Hyperlipidemia on statin Rx DM2 on oral medications, well-controlled as of recent hemoglobin A1c of 6 last January 2025 ISS BG goal 1 10-1 40 COPD, lung status at baseline H/O bladder cancer status post surgery Ongoing tobacco abuse -RLE venous Dopplers rule out DVT-No DVT Nicotine patch as needed DVT prophylaxis. SCDs if no blood clot on venous Dopplers Full code Text document was generated using [employer] voice recognition software. It may contain grammatical or spelling errors. Kindly contact undersigned for clarification of any documentation item in question. Admission and Anticipated Discharge Date Admission Date: May 18, 2025 Subjective 05/18/2025 The patient was seen and examined in medical telemetry unit He was admitted with hematemesis and he is status post chemotherapy last week He has been feeling much better and denies any significant symptoms following admission 05/19/2025 Patient was seen and examined in medical telemetry unit He has been stable and denies any epigastric pain, nausea and/or vomiting No more hemoptysis Review of Systems Review of Systems: All systems reviewed and are unremarkable except as noted below Physical Exam Physical Exam: Lying in bed without any acute distress Constitutional: well developed and well nourished; not ill appearing Eyes: PERRL, conjunctivae normal, anicteric sclerae ENMT: external ear and nose normal, oropharynx normal Neck: trachea midline, no thyromegaly Respiratory: no respiratory distress Auscultation: lungs clear to auscultation bilaterally Cardiovascular: Rate/Rhythm: regular rate and regular rhythm Heart Sounds: normal S1 and normal S2; no murmur Extremities: + edema ( trace edema bilaterally) Gastrointestinal (Abdomen): Inspection/Auscultation: normal bowel sounds; abdomen not distended Percussion/Palpation: abdomen soft; abdomen nontender Neurologic: normal touch/pain/proprioception and moves all extremities; no focal motor deficits Lymphatic: no cervical or axillary lymphadenopathy Results & Data Results & Data Vital Signs (Past 12 Hours) Vital Signs Temp Pulse Resp BP Pulse Ox O2 Del Method 05/19/25 07:32 36.6 C 49 L 18 109/54 L 92 Room Air 05/19/25 03:11 36.7 C 56 L 16 111/51 L 94 Room Air 05/18/25 23:27 36.5 C 68 16 121/56 L 92 Room Air Laboratory Results Short CBC 05/18/25 05/19/25 Range/Units 14:06 07:51 WBC 2.73 L 2.59 L (4.8-10.8) K/ul Hgb 7.3 L 7.1 L (14.0-18.0) g/dl Hct 22.1 L 21.8 L (42.0-52.0) % Plt Count 56 L 57 L (130-400) K/uL BMP 05/19/25 07:51 Sodium 144 Potassium 3.4 L Chloride 111 H Carbon Dioxide 27 BUN 7 Creatinine 1.09 Glucose 94 Calcium 7.3 L Medications Administered Current Inpatient Medications Acetaminophen (Acetaminophen 500 Mg Tab) 500 mg PO Q6H PRN PRN Reason: fever/pain Stop: 06/17/25 05:53 Dextrose (Dextrose 50% 50 Ml Syringe) 25 - 50 ml IV UD PRN; Protocol PRN Reason: Hypoglycemia Protocol Stop: 06/17/25 08:38 Fluticasone Furoate (Fluticasone Furoate 200mcg 14 Puffs/Inhaler) 1 puffs INH DAILY [facility] Stop: 06/17/25 08:59 Last Admin: 05/19/25 09:27 Dose: 1 puffs Folic Acid (Folic Acid 1 Mg Tab) 1 mg PO DAILY [facility] Stop: 06/17/25 08:59 Last Admin: 05/19/25 09:27 Dose: 1 mg Glucagon (Glucagon For Inj 1 Mg Vial) 1 mg SQ UD PRN; Protocol PRN Reason: Hypoglycemia Protocol Stop: 06/17/25 08:38 Glucose (Glucose 40% Gel 15 Gm Tube) 15 - 30 gm PO UD PRN; Protocol PRN Reason: Hypoglycemia Protocol Stop: 06/17/25 08:38 Glucose (Glucose 10 Tab/Tube) 4 - 8 tab PO UD PRN; Protocol PRN Reason: Hypoglycemia Protocol Stop: 06/17/25 08:38 Pantoprazole Sodium 40 mg/ (Dextrose) 100 mls @ 20 mls/hr IV Q5H [facility] Stop: 06/17/25 04:44 Last Admin: 05/19/25 11:15 Dose: 8 mg/hr, 20 mls/hr Promethazine HCl (Phenergan) 6.25 mg in 50.25 mls @ 201 mls/hr IV Q6H PRN PRN Reason: Nausea And Vomiting Stop: 06/17/25 05:53 Insulin Aspart (Insulin Aspart Per Unit Charge) 0 units SC ACHS [facility] Stop: 06/17/25 08:44 Last Admin: 05/19/25 09:34 Dose: Not Given Isosorbide Mononitrate (Isosorbide [place] Extended Rel 30 Mg Tabcr) 30 mg PO QAM [facility] Stop: 06/17/25 08:59 Last Admin: 05/19/25 09:27 Dose: 30 mg Lisinopril (Lisinopril 2.5 Mg Tab) 2.5 mg PO QPM [facility] Stop: 06/17/25 20:59 Last Admin: 05/18/25 20:19 Dose: 2.5 mg Metoprolol Tartrate (Metoprolol Tartrate 25 Mg Tab) 25 mg PO BID [facility] Stop: 06/17/25 08:59 Last Admin: 05/19/25 09:28 Dose: Not Given Miscellaneous (Carbohydrates For Hypoglycemia ) 15 - 30 gm PO UD PRN PRN Reason: Hypoglycemia Protocol Stop: 06/17/25 08:38 Oxycodone HCl (Oxycodone Hcl Ir 5 Mg Tab (Immediate Release)) 5 mg PO Q4H PRN PRN Reason: Pain Stop: 06/01/25 05:53 Tamsulosin HCl (Tamsulosin Hcl 0.4 Mg Cap) 0.4 mg PO QAM [facility] Stop: 06/17/25 08:59 Last Admin: 05/19/25 09:28 Dose: 0.4 mg Trazodone HCl (Trazodone Hcl 50 Mg Tab) 50 mg PO HS [facility] Stop: 06/17/25 20:59 Last Admin: 05/18/25 20:19 Dose: 50 mg Umeclidinium/Vilanterol (Umeclidinium/Vilanterol 62.5/25mcg 7 Puffs/Inhaler) 1 puffs INH DAILY [facility] Stop: 06/17/25 08:59 Last Admin: 05/19/25 09:27 Dose: 1 puffs Vitamin B Complex (Vitamin B Complex Tab) 1 tab PO QAM [facility] Stop: 06/17/25 08:59 Last Admin: 05/19/25 09:27 Dose: 1 tab
[2025-05-20 06:27] LABS: Hematocrit (blood only) 21.4 % (42.0-52.0); Hemoglobin 7.0 g/dl (14.0-18.0); Mean Corpuscular Hemoglobin 36.1 pg (25.0-34.0); Mean Corpuscular Volume 110.3 fL (80.0-100.0); Platelet Count 57 K/uL (130-400); RDW Standard Deviation 67.5 fL (36.4-46.3); Red Blood Count 1.94 M/uL (4.70-6.10); White Blood Count 2.61 K/ul (4.8-10.8)
[2025-05-20 06:50] LABS: Anion Gap 5.0 (3-11); Blood Urea Nitrogen 7.0 mg/dl (6-23); Calcium 7.3 mg/dl (8.6-10.3); Carbon Dioxide 26.0 mmol/L (21-32); Chloride 111.0 mmol/L (98-107); Creatinine Clr Calc Pharmacy 52.7 ml/min; Glucose 127.0 mg/dl (70-99(Fasting)); Potassium 3.5 mmol/L (3.5-5.1); Sodium 142.0 mmol/L (136-145)
[2025-05-20 07:18] LABS: Acanthocytes 1+; Immature Granulocytes # (auto) 0.03 K/uL (0.01-0.20); Immature Granulocytes % (auto) 1.1 %; Macrocytosis Present; Ovalocytes 1+
[2025-05-20] MEDS ORDERED: POTASSIUM PHOS 3 MMOL/1 ML INFUSION IV STA (07:44)
[2025-05-20] MEDS ORDERED: Nursing to Pharmacy Communication SCH ×2 (08:30→20:15)
[2025-05-20] MEDS: POTASSIUM PHOSPHATE 21 MMOL in SODIUM CHLORIDE 0.9% 500 ML IV ONE (10:05)
--- NOTE | 2025-05-20 10:36 | History & Physical Bridge Note ---
Date of Service May 20, 2025 History & Physical Bridge Note I have examined the patient, reviewed the History & Physical and in the interval since the performance of the History & Physical I have noted the following changes of clinical significance: no changes noted Patient's H/H is 7.0 today. He denies any further hematemesis. No melena. He is NPO. Keep NPO and proceed with EGD today. Supervising Physician Co-Signing Physician Notes Patient states had hematemesis in the middle of the night x 2. 1 further episode with oral contrast for his CT. No melena. No frequent NSAID use. Denies heartburn indigestion dysphagia. Potentially Sofie-Mueller tear. EGD. Patient has neutropenia though white count currently 2.6. Platelets lowest low at 56,000. Risk benefits explained informed consent obtained
[2025-05-20] MEDS: INSULIN ASPART PER UNIT CHARGE SC SCH ×2 (12:26→20:40)
--- NOTE | 2025-05-20 14:15 | Hospitalist Progress Note ---
Date of Service May 20, 2025 Assessment & Plan (1) UGIB (upper gastrointestinal bleed): Plan: Assessment and plan below following discussion of case with ED provider and reviewing patient history/pertinent normal/abnormal diagnostic test results. Acute on chronic anemia secondary to UGIB- sudden onset of hematemesis night before admission In the setting of aspirin Rx,secondary to chemotherapy Differentials include esophagitis, gastritis, PUD Admitting hemoglobin was 6.8 and platelet 48received 1 unit of blood transfusion and 1 platelet pheresis Hemoglobin this morning is 7.3 and platelet 56 Appreciate GI input and recommendation for ongoing conservative management and no plan for EGD Patient remains stable without any more episodes of hematemesis does not have any pain in the abdomen Continue IV PPI Will start diet Normal hemodialysis and hemoglobin remains stable at 7.1 following 1 unit of blood transfusion on admission GI is planning for possible endoscopy tomorrow Will monitor hemoglobin and if stable may be discharged following EGD tomorrow Hemoglobin remains stable at 7.0 and no evidence of nausea, vomiting or hematemesis He will have EGD today and if normal may be going home Metastatic cancer of unknown primary Diagnosed in July of last year and under care of Freddy Bruce oncologist Has been getting chemotherapy every 3 weeks since August of last year Received chemo last week New onset transaminitis, with patient without abdominal pain complaints Strongly advised to keep appointment with oncologist as an outpatient Pancytopenia Secondary to chemotherapy Complicated by GI bleed Received 1 unit of PRBC one unit of platelet pheresis just Platelet count remains stable at 57 PAF not on anticoagulation as per patient preference Valvular heart disease (mild MR/TR) hx PVD - remains stable without any cardiac symptoms Hypertension, slightly elevated Hyperlipidemia on statin Rx DM2 on oral medications, well-controlled as of recent hemoglobin A1c of 6 last January 2025 ISS BG goal 1 10-1 40 COPD, lung status at baseline H/O bladder cancer status post surgery Ongoing tobacco abuse -RLE venous Dopplers rule out DVT-No DVT Nicotine patch as needed DVT prophylaxis. SCDs if no blood clot on venous Dopplers Full code Text document was generated using [employer] voice recognition software. It may contain grammatical or spelling errors. Kindly contact undersigned for clarification of any documentation item in question. Admission and Anticipated Discharge Date Admission Date: May 18, 2025 Subjective 05/18/2025 The patient was seen and examined in medical telemetry unit He was admitted with hematemesis and he is status post chemotherapy last week He has been feeling much better and denies any significant symptoms following admission 05/19/2025 Patient was seen and examined in medical telemetry unit He has been stable and denies any epigastric pain, nausea and/or vomiting No more hemoptysis 05/20/2025 The patient was seen and examined in medical telemetry unit He has been feeling much better denies any more hematemesis, nausea or vomiting Denies any other significant symptoms He will have an EGD today Review of Systems Review of Systems: All systems reviewed and are unremarkable except as noted below Physical Exam Physical Exam: Lying in bed without any acute distress Constitutional: well developed and well nourished; not ill appearing Eyes: PERRL, conjunctivae normal, anicteric sclerae ENMT: external ear and nose normal, oropharynx normal Neck: trachea midline, no thyromegaly Respiratory: no respiratory distress Auscultation: lungs clear to auscultation bilaterally Cardiovascular: Rate/Rhythm: regular rate and regular rhythm Heart Sounds: normal S1 and normal S2; no murmur Extremities: + edema ( trace edema bilaterally) Gastrointestinal (Abdomen): Inspection/Auscultation: normal bowel sounds; abdomen not distended Percussion/Palpation: abdomen soft; abdomen nontender Neurologic: normal touch/pain/proprioception and moves all extremities; no focal motor deficits Lymphatic: no cervical or axillary lymphadenopathy Results & Data Results & Data Vital Signs (Past 12 Hours) Vital Signs Temp Pulse Pulse Resp BP Pulse Ox O2 Del Method 05/20/25 11:45 36.5 C 52 L 16 125/42 L 94 Room Air 05/20/25 08:09 36.5 C 59 L 16 135/62 93 Room Air 05/20/25 07:57 53 L 05/20/25 02:25 36.7 C 60 16 126/60 96 Room Air Laboratory Results Short CBC 05/20/25 Range/Units 05:49 WBC 2.61 L (4.8-10.8) K/ul Hgb 7.0 L (14.0-18.0) g/dl Hct 21.4 L (42.0-52.0) % Plt Count 57 L (130-400) K/uL BMP 05/20/25 05:49 Sodium 142 Potassium 3.5 Chloride 111 H Carbon Dioxide 26 BUN 7 Creatinine 1.08 Glucose 127 H Calcium 7.3 L Medications Administered Current Inpatient Medications Acetaminophen (Acetaminophen 500 Mg Tab) 500 mg PO Q6H PRN PRN Reason: fever/pain Stop: 06/17/25 05:53 Dextrose (Dextrose 50% 50 Ml Syringe) 25 - 50 ml IV UD PRN; Protocol PRN Reason: Hypoglycemia Protocol Stop: 06/17/25 08:38 Fluticasone Furoate (Fluticasone Furoate 200mcg 14 Puffs/Inhaler) 1 puffs INH DAILY CHANELLE Stop: 06/17/25 08:59 Last Admin: 05/20/25 10:07 Dose: 1 puffs Folic Acid (Folic Acid 1 Mg Tab) 1 mg PO DAILY CHANELLE Stop: 06/17/25 08:59 Last Admin: 05/20/25 10:13 Dose: Not Given Glucagon (Glucagon For Inj 1 Mg Vial) 1 mg SQ UD PRN; Protocol PRN Reason: Hypoglycemia Protocol Stop: 06/17/25 08:38 Glucose (Glucose 40% Gel 15 Gm Tube) 15 - 30 gm PO UD PRN; Protocol PRN Reason: Hypoglycemia Protocol Stop: 06/17/25 08:38 Glucose (Glucose 10 Tab/Tube) 4 - 8 tab PO UD PRN; Protocol PRN Reason: Hypoglycemia Protocol Stop: 06/17/25 08:38 Pantoprazole Sodium 40 mg/ (Dextrose) 100 mls @ 20 mls/hr IV Q5H [facility] Stop: 06/17/25 04:44 Last Admin: 05/20/25 12:31 Dose: 8 mg/hr, 20 mls/hr Promethazine HCl (Phenergan) 6.25 mg in 50.25 mls @ 201 mls/hr IV Q6H PRN PRN Reason: Nausea And Vomiting Stop: 06/17/25 05:53 Insulin Aspart (Insulin Aspart Per Unit Charge) 0 units SC Q6 [facility] Stop: 06/19/25 11:59 Last Admin: 05/20/25 12:26 Dose: Not Given Isosorbide Mononitrate (Isosorbide [place] Extended Rel 30 Mg Tabcr) 30 mg PO QAM [facility] Stop: 06/17/25 08:59 Last Admin: 05/20/25 10:13 Dose: Not Given Lisinopril (Lisinopril 2.5 Mg Tab) 2.5 mg PO QPM [facility] Stop: 06/17/25 20:59 Last Admin: 05/19/25 21:21 Dose: 2.5 mg Metoprolol Tartrate (Metoprolol Tartrate 25 Mg Tab) 25 mg PO BID CHANELLE Stop: 06/17/25 08:59 Last Admin: 05/20/25 10:14 Dose: Not Given Miscellaneous (Carbohydrates For Hypoglycemia ) 15 - 30 gm PO UD PRN PRN Reason: Hypoglycemia Protocol Stop: 06/17/25 08:38 Oxycodone HCl (Oxycodone Hcl Ir 5 Mg Tab (Immediate Release)) 5 mg PO Q4H PRN PRN Reason: Pain Stop: 06/01/25 05:53 Tamsulosin HCl (Tamsulosin Hcl 0.4 Mg Cap) 0.4 mg PO QAM CHANELLE Stop: 06/17/25 08:59 Last Admin: 05/20/25 10:14 Dose: Not Given Trazodone HCl (Trazodone Hcl 50 Mg Tab) 50 mg PO HS CHANELLE Stop: 06/17/25 20:59 Last Admin: 05/19/25 21:22 Dose: 50 mg Umeclidinium/Vilanterol (Umeclidinium/Vilanterol 62.5/25mcg 7 Puffs/Inhaler) 1 puffs INH DAILY CHANELLE Stop: 06/17/25 08:59 Last Admin: 05/20/25 10:07 Dose: 1 puffs Vitamin B Complex (Vitamin B Complex Tab) 1 tab PO QAM CHANELLE Stop: 06/17/25 08:59 Last Admin: 05/20/25 10:14 Dose: Not Given
--- NOTE | 2025-05-20 17:37 | Anesthesiology Consultation ---
Date of Service May 20, 2025 Assessment & Plan Chart Review Chart Review: Acceptable Risk for Surgery and Patient NOT seen in Pre Admission Testing Consults Requested none ASA ASA4 Proposed Anesthesia Anesthesia Type: MAC Risk / Benefits Reviewed With: PT / POA / Parent / Guardian, Accepts Plan and Informed Consent Obtained History Surgery Operation Date: 05/20/25 16:30 Proposed Procedures p Esophagogastroduodenoscopy Dr. Davin Jin MD Height/Weight Height: 5 ft 7 in Weight: 79.2 kg Allergies Allergy/AdvReac Type Severity Reaction Status Date / Time bee venom protein (honey bee) Allergy Severe ANAPHYLAXIS Verified 02/22/23 09:43 cephalexin [From Keflex] Allergy Unknown CAN'T Verified 02/22/23 09:43 MD CHIDI ADDED TO LIST Medications Home Medications Medication Instructions Recorded Confirmed Last Taken aspirin 81 mg tablet,delayed 81 mg PO QAM 04/22/20 05/18/25 05/17/25 release (Aspir-) atorvastatin 80 mg tablet 80 mg PO HS 04/22/20 05/18/25 05/17/25 cholecalciferol (vitamin D3) 25 2,000 unit PO QAM 04/22/20 05/18/25 05/17/25 mcg (1,000 unit) capsule (Vitamin D3) epinephrine 0.3 mg/0.3 mL 0.3 mg IM DIRECTED PRN Allergic 04/22/20 05/18/25 Unknown injection, auto-injector Reaction metformin 500 mg tablet 500 mg PO BIDM 04/22/20 05/18/25 05/17/25 metoprolol tartrate 50 mg tablet 50 mg PO BID 04/22/20 05/18/25 05/17/25 nitroglycerin 0.4 mg sublingual 0.4 mg sublingual DIRECTED PRN 04/22/20 05/18/25 Unknown tablet (Nitrostat) Chest Pain tamsulosin 0.4 mg capsule 0.4 mg PO QAM 04/22/20 05/18/25 05/17/25 clotrimazole-betamethasone 1 1 applic topical BID PRN .flare ups 02/03/23 05/18/25 Unknown %-0.05 % topical cream isosorbide mononitrate 30 mg 30 mg PO QAM 02/03/23 05/18/25 05/17/25 tablet,extended release 24 hr lisinopril 2.5 mg tablet 2.5 mg PO QPM 02/03/23 05/18/25 05/17/25 vitamin B complex 1 tab PO QAM 02/03/23 05/18/25 05/17/25 albuterol sulfate 90 mcg/actuation 2 inh inhalation Q4H PRN shortness 05/18/25 05/18/25 05/17/25 aerosol inhaler of breath or wheezing budesonide 160 mcg-glycopyr 9 2 inh inhalation BID 05/18/25 05/18/25 05/17/25 mcg-formot 4.8 mcg/actuation HFA inhaler (Breztri Aerosphere) folic acid 1 mg tablet 1 mg PO DAILY 05/18/25 05/18/25 05/17/25 ondansetron 4 mg disintegrating 8 mg PO Q8H PRN nausea and vomiting 05/18/25 05/18/25 Unknown tablet prochlorperazine maleate 10 mg 10 mg PO Q6H PRN Nausea And 05/18/25 05/18/25 Unknown tablet Vomiting trazodone 50 mg tablet 50 mg PO HS 05/18/25 05/18/25 05/17/25 Active Medications Generic Name Dose Route Start Last Admin Trade Name Freq PRN Reason Stop Dose Admin Fluticasone Furoate 1 puffs 05/18/25 09:00 05/20/25 10:07 Fluticasone Furoate 200mcg 14 Puffs/Inhaler INH 06/17/25 08:59 1 puffs DAILY CHANELLE Administration Folic Acid 1 mg 05/18/25 09:00 05/20/25 10:13 Folic Acid 1 Mg Tab PO 06/17/25 08:59 Not Given DAILY CHANELLE Pantoprazole Sodium 40 mg/ 100 mls @ 20 mls/hr 05/18/25 04:45 05/20/25 12:31 Dextrose IV 06/17/25 04:44 8 mg/hr Q5H CHANELLE 20 mls/hr Administration 8 MG/HR Insulin Aspart 0 units 05/20/25 12:00 05/20/25 12:26 Insulin Aspart Per Unit Charge SC 06/19/25 11:59 Not Given Q6 CHANELLE Isosorbide Mononitrate 30 mg 05/18/25 09:00 05/20/25 10:13 Isosorbide [place] Extended Rel 30 Mg Tabcr PO 06/17/25 08:59 Not Given QAM CHANELLE Lisinopril 2.5 mg 05/18/25 21:00 05/19/25 21:21 Lisinopril 2.5 Mg Tab PO 06/17/25 20:59 2.5 mg QPM CHANELLE Administration Metoprolol Tartrate 25 mg 05/18/25 09:00 05/20/25 10:14 Metoprolol Tartrate 25 Mg Tab PO 06/17/25 08:59 Not Given BID CHANELLE Tamsulosin HCl 0.4 mg 05/18/25 09:00 05/20/25 10:14 Tamsulosin Hcl 0.4 Mg Cap PO 06/17/25 08:59 Not Given QAM CHANELLE Trazodone HCl 50 mg 05/18/25 21:00 05/19/25 21:22 Trazodone Hcl 50 Mg Tab PO 06/17/25 20:59 50 mg HS CHANELLE Administration Umeclidinium/Vilanterol 1 puffs 05/18/25 09:00 05/20/25 10:07 Umeclidinium/Vilanterol 62.5/25mcg 7 Puffs/Inhaler INH 06/17/25 08:59 1 puffs DAILY CHANELLE Administration Vitamin B Complex 1 tab 05/18/25 09:00 05/20/25 10:14 Vitamin B Complex Tab PO 06/17/25 08:59 Not Given QAM CHANELLE NPO Date Last Intake of Fluids: 05/19/25 Time Last Intake of Fluids: 19:00 Date Last Intake of Solids: 05/17/25 Time Last Intake of Solids: 18:00 Past Medical History Medical History PAD (peripheral artery disease) Mild bilateral ICA disease (per 2019 carotid duplex) Arterial doppler of LE showed mild PAD on right side (April 2021) History of Mohs micrographic surgery for skin cancer History of gout History of melanoma Hyperlipidemia BPH (benign prostatic hyperplasia) Myocardial Infarction 1996 > anterior wall [place] Kidney stone 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 Exercise / Class Metabolic Activity II 4-5 Yardwork/Stairs/Walk up hill Past Family History Family History Father Diabetes Grandmother (Paternal) Diabetes Other Cancer Coronary heart disease Hypertension No family history of adverse response to anesthesia Past Surgical History Surgical History History of urologic surgery History of cancer surgery bladder History of cystoscopy History of tooth extraction History of lithotripsy recent--08/21/21 @ [place] History of cardiac cath 2017 > 1 STENT > [facility] Hx of colonoscopy History of lumbar spinal fusion 2010 1968 Past Anesthesia History No Hx of Anesthesia Complications and No Family Hx of Anesthesia Complications History of PONV No Hx of PONV and No Hx of Motion Sickness Social History Smoking Status: Current every day smoker tobacco type: cigarettes Smoking cigarettes per day: 4 Do You Dip or Chew Tobacco: No Hx Alcohol Use: No Alcohol type: beer alcohol intake frequency: holidays/special occasions only Hx Substance Use: No substance use type: does not use Physical Exam Vital Signs Last Vital Signs Temp 36.7 C 05/20/25 17:25 Pulse 58 L 05/20/25 17:25 Resp 16 05/20/25 17:25 BP 167/67 H 05/20/25 17:25 Pulse Ox 96 05/20/25 17:25 O2 Del Method Room Air 05/20/25 17:25 O2 Flow Rate 2 05/18/25 06:49 ENMT Mouth: no dentition abnormality Thyromental Distance: > or= 3.5 Finger Breadths Mallampati Class: II Neck normal visual inspection Respiratory normal respiratory effort Auscultation: lungs clear to auscultation bilaterally Cardiovascular Rate/Rhythm: regular rate and regular rhythm Psychiatric Orientation: alert Testing Laboratory Results 05/20/25 05:49 05/20/25 05:49 PT 11.9 Seconds (9.0-12.0) 05/18/25 03:56 INR 1.1 (0.9-1.1) 05/18/25 03:56 APTT 37 Seconds (21-31) H 05/18/25 03:56 Urine Color Yellow 05/18/25 08:25 Urine Appearance Clear (Clear) 05/18/25 08:25 Urine pH 6.5 (4.5-7.5) 05/18/25 08:25 Ur Specific [place] > 1.045 (1.000-1.030) H 05/18/25 08:25 Urine Protein Trace (Negative) H 05/18/25 08:25 Urine Glucose (UA) Negative (Negative) 05/18/25 08:25 Urine Ketones Negative (Negative) 05/18/25 08:25 Urine Nitrite Negative (Negative) 05/18/25 08:25 Ur Leukocyte Esterase Negative (Negative) 05/18/25 08:25 Urine WBC (Auto) 0-5 /hpf (0-5) 05/18/25 08:25 Urine RBC (Auto) 0-2 /hpf (0-2) 05/18/25 08:25 U Hyaline Cast (Auto) 0-2 /lpf (0-2) 05/18/25 08:25 U Epithel Cells (Auto) 0-2 /hpf (0-2) 05/18/25 08:25 Urine Bacteria (Auto) None Seen (None Seen) 05/18/25 08:25 Blood Type B Positive 05/18/25 04:00 Antibody Screen NEGATIVE 05/18/25 04:00 05/20/25 05/20/25 05/20/25 17:03 12:13 08:09 POC Glucose 88 91 97
--- NOTE | 2025-05-20 17:45 | Communication Note ---
Date of Service: May 20, 2025 EGD No ulcers. Hiatal hernia single linear erosion of the GE junction. Could be a healing Sofie-Mueller. Stomach and duodenum without ulcerations. Suspect red blood from forceful vomiting. PPI. Can be discharged from a GI perspective.
[2025-05-20] MEDS: HEPARIN 100 UNIT/ML 5ML FLUSH ONE (18:13)
[2025-05-20] MEDS: ONDANSETRON INJ 2 MG/ML 2 ML VIAL ONE (18:34)
[2025-05-20] MEDS: LIDOCAINE 2% 2 ML VIAL/AMP(20MG/ML) INFIL ONE (18:34)
[2025-05-20] MEDS: PROPOFOL IV EMULSION 10 MG/ML 20 ML VIAL IV ONE (18:35)
--- NOTE | 2025-05-20 20:53 | Anesthesiology Progress Note ---
Date of Service May 20, 2025 Anesthesia Post Procedure Vital Signs Vital Signs: Temp Pulse Pulse Pulse Resp BP Pulse Ox 05/20/25 19:43 36.6 C 84 18 154/91 H 97 05/20/25 18:15 62 16 150/67 H 97 05/20/25 18:00 52 L 16 147/47 H 97 05/20/25 17:45 58 L 12 125/46 L 100 05/20/25 17:25 36.7 C 58 L 16 167/67 H 96 05/20/25 16:32 61 05/20/25 16:16 36.6 C 59 L 16 155/62 H 94 05/20/25 11:45 36.5 C 52 L 16 125/42 L 94 05/20/25 08:09 36.5 C 59 L 16 135/62 93 05/20/25 07:57 53 L 05/20/25 02:25 36.7 C 60 16 126/60 96 05/19/25 22:32 36.6 C 58 L 16 127/53 L 92 05/19/25 21:59 56 L O2 Del Method 05/20/25 19:43 Room Air 05/20/25 18:15 Room Air 05/20/25 18:00 Room Air 05/20/25 17:45 Room Air 05/20/25 17:25 Room Air 05/20/25 16:32 05/20/25 16:16 Room Air 05/20/25 11:45 Room Air 05/20/25 08:09 Room Air 05/20/25 07:57 05/20/25 02:25 Room Air 05/19/25 22:32 Room Air 05/19/25 21:59 Transfer of Care Handoff Completed per policy Notes Mental Status: alert / awake / arousable Patient Amnestic to Procedure: Yes Nausea / Vomiting: adequately controlled Pain: adequately controlled Airway Patency, RR, SpO2: stable & adequate BP & HR: stable & adequate Hydration State: stable & adequate Anesthetic Complications: no major complications apparent
[2025-05-21 07:58] VITALS: BP 153/57; RESP 16; TEMP 97.7; O2SAT 93
[2025-05-21 09:49] LABS: Hematocrit (blood only) 22.5 % (42.0-52.0); Hemoglobin 7.4 g/dl (14.0-18.0); Mean Corpuscular Hemoglobin 36.3 pg (25.0-34.0); Mean Corpuscular Volume 110.3 fL (80.0-100.0); Platelet Count 69 K/uL (130-400); RDW Standard Deviation 65.2 fL (36.4-46.3); Red Blood Count 2.04 M/uL (4.70-6.10); White Blood Count 2.62 K/ul (4.8-10.8)
--- NOTE | 2025-05-21 10:18 | Discharge Summary ---
Discharge Summary Date of Service May 21, 2025 Principal Dx & Hospital Course #1 = Principal Diagnosis (1) Acute on chronic blood loss anemia: (2) Sofie-Mueller tear: (3) COPD (chronic obstructive pulmonary disease): (4) Paroxysmal atrial fibrillation: (5) Metastatic cancer: Unknown primary, undergoing chemotherapy (6) Pancytopenia due to chemotherapy: Plan Patient is 79-year-old gentleman presented to the emergency room with acute onset of hematemesis. Patient was admitted to the hospital. GI consultation was obtained. He was placed on proton pump inhibitor. He was transfused 1 unit of packed red blood cells. He had no further episodes of hematemesis. His hemoglobin remained stable. Patient underwent EGD Which had no signs of ulceration. There was some erosion at the GE junction which could have been a healing Sofie-Mueller tear. It was suspected the patient had acute hematemesis from forceful vomiting. Patient was maintained on oral proton pump inhibitor. Day of discharge his hemoglobin had improved. He was tolerating his diet. He be discharged outpatient care and follow-up. Notes For Next Care Provider Follow-up with oncologist for ongoing treatments Medication Changes From Visit Protonix 2 times daily Admission HPI Per Admitting Provider History obtained from patient and records. Medical history significant for coronary artery disease s/p stent (2017), PAF not on anticoagulation as per patient preference, valvular heart disease (mild MR/TR), PVD, hypertension, hyperlipidemia, DM2 on oral medications, COPD, metastatic cancer unknown primary ongoing chemotherapy, bladder cancer status post surgery, skin cancer as per records, history of BPH, recurrent UTIs, chronic anemia (baseline hemoglobin 8-9), ongoing tobacco abuse Last confinement 2021 for COPD/CHF exacerbation. Patient with sudden onset hematemesis last night without unusual abdominal pain. Denies chest pain, SOB. No OTC NSAID intake. Right leg swelling over the last few days without recollection of trauma. Patient brought to ER for evaluation with recurrent hematemesis episodes. IV Protonix and 1 unit PRBC and pheresed platelets administered at the ER. MEDICAL HISTORY: As above. SURGERIES: He had back surgery x 2 and bladder surgery, cystoscopy, small bladder tumor removal, vascular procedures, cataract surgeries, thoracoscopy/mediastinal biopsy FAMILY HISTORY: Heart disease, DM SOCIAL HISTORY: 3/4 pack daily. 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 Admission Exam Per Admitting Provider See H&P Discharge Exam Constitutional: Alert HEENT: Mucous membranes moist. Lungs: Clear to auscultation, decreased, no wheezes rales or rhonchi CV: S1-S2, regular Abdomen: Soft, nontender, nondistended Extremities: No significant edema Neuro: No focal deficits Psych: Cooperative, normal mood Updated Medication List Medication Instructions Recorded Confirmed Type aspirin 81 mg tablet,delayed 81 mg PO QAM 04/22/20 05/18/25 History release (Aspir-) atorvastatin 80 mg tablet 80 mg PO HS 04/22/20 05/18/25 History cholecalciferol (vitamin D3) 25 2,000 unit PO QAM 04/22/20 05/18/25 History mcg (1,000 unit) capsule (Vitamin D3) epinephrine 0.3 mg/0.3 mL 0.3 mg IM DIRECTED PRN Allergic 04/22/20 05/18/25 History injection, auto-injector Reaction metformin 500 mg tablet 500 mg PO BIDM 04/22/20 05/18/25 History metoprolol tartrate 50 mg tablet 50 mg PO BID 04/22/20 05/18/25 History nitroglycerin 0.4 mg sublingual 0.4 mg sublingual DIRECTED PRN 04/22/20 05/18/25 History tablet (Nitrostat) Chest Pain tamsulosin 0.4 mg capsule 0.4 mg PO QAM 04/22/20 05/18/25 History clotrimazole-betamethasone 1 1 applic topical BID PRN .flare ups 02/03/23 05/18/25 History %-0.05 % topical cream isosorbide mononitrate 30 mg 30 mg PO QAM 02/03/23 05/18/25 History tablet,extended release 24 hr lisinopril 2.5 mg tablet 2.5 mg PO QPM 02/03/23 05/18/25 History vitamin B complex 1 tab PO QAM 02/03/23 05/18/25 History albuterol sulfate 90 mcg/actuation 2 inh inhalation Q4H PRN shortness 05/18/25 05/18/25 History aerosol inhaler of breath or wheezing budesonide 160 mcg-glycopyr 9 2 inh inhalation BID 05/18/25 05/18/25 History mcg-formot 4.8 mcg/actuation HFA inhaler (Breztri Aerosphere) folic acid 1 mg tablet 1 mg PO DAILY 05/18/25 05/18/25 History ondansetron 4 mg disintegrating 8 mg PO Q8H PRN nausea and vomiting 05/18/25 05/18/25 History tablet prochlorperazine maleate 10 mg 10 mg PO Q6H PRN Nausea And 05/18/25 05/18/25 History tablet Vomiting trazodone 50 mg tablet 50 mg PO HS 05/18/25 05/18/25 History pantoprazole 40 mg tablet,delayed 40 mg PO BID #60 tabs 05/21/25 Rx release Hospital Stay Data Consultations 05/18/25 05:27 ED Decision to Admit Stat 05/18/25 08:39 Consult Gastroenterology Routine Procedures Performed Operation Date: 05/20/25 16:30 Actual Procedures p Esophagogastroduodenoscopy - Jg Jin MD Diagnostic Imagining Performed 05/18/25 04:10 CT angio abdomen pelvis w con Stat 05/18/25 07:11 US leg [US venous doppler LE RT] Stat Reviewed imaging, laboratory and diagnostic studies. Pertinent findings as dane valdivia. Formal EGD report pending, brief note from GI showed no ulcerations, hiatal hernia with linear erosion at the GE junction possibly a healing Sofie-Mueller tear. WBCs 2.6 Hemoglobin 7.4, improved Platelets of 69 Electrolytes stable Creatinine 1.08 Glucose 99 Pending Results Patient Have Any Pending Studies at Discharge: No Discharge Instructions Given to Patient (Per Discharging Provider) Follow-up with your cancer doctor as arranged to discuss ongoing treatments Follow-up with your PCP Total Time Total Time Spent Total Time Spent (In Minutes): 33
[2025-05-21 10:45] VITALS: PULSE 60
[2025-05-21] MEDS: HEPARIN 100 UNIT/ML 5ML FLUSH FLUSH PRN (11:06)
--- NOTE | 2025-07-01 09:10 | GI REPORT ---
[facility] Patient: BEULAH LEOS : 1945 Sex at : Male Age: 80 Years Procedure: Upper GI endoscopy Date: 05/20/2025 Attending Physician: Jg Jin MD Referring MD: Pita Rosen Indications: - Suspected upper gastrointestinal bleeding Medications: - Monitored Anesthesia Care Complications: - No immediate complications. Estimated Blood Loss: - Estimated blood loss: None. Procedure: - The egd scope was introduced through the mouth and advanced to the second part of the duodenum. - The upper GI endoscopy was accomplished without difficulty. - The patient tolerated the procedure well. Findings: - A small hiatal hernia was present. - Esophagitis with no bleeding was found at the gastroesophageal junction (on retroflexion). - The entire examined stomach was normal. - The examined duodenum was normal. Impression: - Small hiatal hernia. - Erosive esophagitis with no bleeding. - Normal stomach. - Normal examined duodenum. - No specimens collected. - Single erosion of the GE junction. No active evidence for upper GI bleeding. Suspect that erosion is a small Sofie-Mueller tear occurred during forceful vomiting. No concern for acute recurrent bleeding risk. Okay for discharge from a GI perspective Recommendation: Procedure Code(s): - 33915, Esophagogastroduodenoscopy, flexible, transoral; diagnostic, including collection of specimen(s) by brushing or washing, when performed (separate procedure) Diagnosis Code(s): - K44.9, Diaphragmatic hernia without obstruction or gangrene - K22.10, Ulcer of esophagus without bleeding CPT(R) - 2023 copyright [employer] [place] [employer]. All Rights Reserved. The CPT codes, CCI edits and ICD codes generated are intended as suggestions and were generated based on input data. These codes are preliminary and upon blasting miner review may be revised to meet current compliance and payer requirements. The provider is responsible for the final determination of appropriate codes, and modifiers. Jg Jin MD This document has been electronically signed. Note Initiated:05/20/2025 Note Completed:07/01/2025 9:09 AM \\[id number]
== END 2025-05-21 11:49 | disposition home or self-care (01) | DRG 368 ==
LOC: ED 03:44 → SUATTDRO 05:52 → 2W 05:52

== ENCOUNTER 2025-06-21 18:55 | Inpatient (IN) ==
--- NOTE | 2025-06-21 19:17 | Emergency Department Note ---
ED Visit Note I was consulted by the Advanced Practice Provider, MARINA Puckett. I personally made/approved the management plan and take responsibility for the patient management. I performed a substantive portion of the visit. This includes the aspects of: -History/Physical/Personally seeing the patient -MDM .
[2025-06-21 20:01] LABS: Alanine Aminotransferase 74.0 U/L (7-52); Albumin Globulin Ratio 0.9 (0.9-2); Albumin Level 2.8 gm/dl (3.4-5.0); Alkaline Phosphatase 79.0 U/L (34-104); Anion Gap 10.0 (3-11); Bilirubin,Total 0.6 mg/dl (0.2-1.0); Blood Urea Nitrogen 17.0 mg/dl (6-23); Calcium 7.4 mg/dl (8.6-10.3); Carbon Dioxide 22.0 mmol/L (21-32); Chloride 112.0 mmol/L (98-107); Creatinine Clr Calc Pharmacy 46.7 ml/min; Globulin 3.1 gm/dl (2.5-4.0); Glucose 133.0 mg/dl (70-99(Fasting)); Potassium 3.3 mmol/L (3.5-5.1); Sodium 144.0 mmol/L (136-145); Total Protein 5.9 gm/dl (6.0-8.3)
[2025-06-21 20:05] LABS: Hematocrit (blood only) 21.8 % (42.0-52.0); Hemoglobin 6.6 g/dl (14.0-18.0); Mean Corpuscular Hemoglobin 35.3 pg (25.0-34.0); Mean Corpuscular Volume 116.6 fL (80.0-100.0); Ovalocytes 1+; Platelet Count 67 K/uL (130-400); Poikilocytosis Present; Polychromasia 2+; RDW Standard Deviation 77.3 fL (36.4-46.3); Red Blood Count 1.87 M/uL (4.70-6.10); White Blood Count 1.77 K/ul (4.8-10.8)
[2025-06-21 20:06] LABS: Immature Granulocytes # (auto) 0.00 K/uL (0.01-0.20); Immature Granulocytes % (auto) 0.0 %
--- NOTE | 2025-06-21 20:14 | XRay Report ---
EXAM: Portable AP chest radiograph TECHNIQUE: AP portable radiograph of the chest was obtained. INDICATION: Shortness of breath Comparison: Chest radiograph May 18, 2025 FINDINGS: LINES and TUBES: Right-sided Port-A-Cath with tip projecting over the superior cavoatrial junction. CARDIOVASCULAR: Cardiac silhouette is stably and mildly enlarged in size. Atherosclerosis of the thoracic aorta. LUNGS/PLEURA: No focal consolidation identified. Redemonstrated diffuse chronic interstitial lung changes with fibrotic component. Mild pulmonary vascular congestion. No significant pleural fluid. No discernible pneumothorax. OSSEOUS/OTHER: No displaced acute osseous process identified. Chronic right-sided rib cage deformities. IMPRESSION: No focal consolidation is identified in the lungs. Redemonstrated diffuse chronic interstitial lung changes with fibrotic component. Mild congestive changes of the cardiovascular system. Electronically signed by Yandel Zapien 06-21-2025 8:13 PM
--- NOTE | 2025-06-21 20:27 | Emergency Department Note ---
Impression & Plan Anemia, Shortness of breath, Cellulitis and abscess of foot ED Provider Note CHIEF COMPLAINT: Cellulitis of the right foot, shortness of breath HISTORY OF PRESENTING ILLNESS: Patient is a 79-year-old male presents emergency department today for complaints of cellulitis of the right foot and shortness of breath. Patient has a history of lung cancer with active treatment. He was seen here on 06/18/2025 and diagnosed with a cellulitis and put on Keflex. When the patient got to his pharmacy he refused the Keflex stating that he has an allergy even after taking Rocephin here in the emergency department. He was then placed on Augmentin 875. He reports taking the medication as prescribed since picking it up. Today he reports increased swelling to the right foot. He also has shortness of breath on exertion. He has been pancytopenic and has had low hbg around 7 for the past 1-2 months. Patient denies chest pain, abdominal pain, headache, fevers/chills, blood in stool or urine, any recent illness, or any recent travel. REVIEW OF SYSTEMS: See HPI for pertinent positives and pertinent negatives. ALLERGIES: See below MEDICATIONS: See below PAST MEDICAL HISTORY: See below PHYSICAL EXAM: Vital Signs: Reviewed Nurse's notes, Temperature 36.4 C, vital signs stable. GENERAL: 79-year-old male, in no acute distress, is non toxic in appearance, well-developed, well-nourished. SKIN: The right foot is red, warm, mildly tender, and swollen. There is no lymphangitic streaking. There is no discharge. There is no fluctuance. There is [] induration. HEART: Regular rate and rhythm without murmur, gallop, or rub. LUNGS: Clear to auscultation bilaterally without wheezes, rales, or rhonchi. NEURO: Alert and oriented to person, place, and time. Normal sensation to light and sharp touch. Capillary reflex less than 2 seconds. Peripheral pulses 2 + bilaterally. DIFFERENTIAL DIAGNOSIS: Cellulitis, DVT, venous stasis, traumatic injury, fracture, among others. ED COURSE AND MEDICAL DECISION MAKING: HISTORY FROM INDEPENDENT HISTORIAN: History was provided by the patient. MONITOR: Continuous cardiac rehabilitation specialist: Order was placed for continuous cardiac rehabilitation specialist. Patient was placed on the cardiac rehabilitation specialist and continuous pulse ox. Patient was noted to be in normal sinus rhythm at an initial rate of 76 bpm per my interpretation. EKG: EKG was interpreted by myself as sinus rhythm with sinus arrhythmia at a rate of 74 bpm. INTERPRETATION OF LABS: I interpreted the labs with full lab results as below in the lab section of this note. Laboratory results pertinent to the emergent complaint are discussed in the MDM section below. The patient was advised to follow up with their PCP and/or specialist(s) for further outpatient monitoring and management of any abnormal results. INTERPRETATION OF IMAGING: Imaging studies were interpreted by myself and read by radiology as per the imaging section of this note. The patient was advised to follow up with their PCP and/or specialist(s) for further outpatient management of any non-emergent abnormal findings. CHRONIC MEDICAL/SOCIAL CONDITIONS AFFECTING CARE: No social concerns were identified as barriers to patients care. EXTERNAL RECORDS REVIEWED: Patient's previous ER visit from 06/18/2025 related to the same complaint. ESCALATION OF CARE CONSIDERED: I considered admission on this patient due to a now symptomatic anemia. CONSULTATIONS: I had a meaningful discussion about this patient with Dr. Franklin who agrees with my assessment and the treatment plan. I consulted with Dr. Arana for admission to the hospital. The patient was accepted. SUMMARY: I examined the patient for complaints of cellulitis and shortness of breath. A physical exam and history were performed. Nursing notes, EMR, and medication list were personally reviewed. CBC showed a pancytopnea with a hemoglobin of 6.6 that is slightly below baseline but the patient is symptomatic currently, white blood cell count of 1.77, platelet count of 67. Potassium was 3.3, chloride 112, glucose 133, calcium 7.4, AST 85, ALT 474, total protein 5.9, albumin 2.80. Urinalysis was negative for leukocytes or nitrates. Chest x-ray shows no focal consolidation of the lungs. Re-demonstrated diffuse chronic interstitial lung changes with fibrotic component. Mild congestive changes of the cardiovascular system. X-ray of the foot showed no acute findings. The patient declined pain medications or antiemetics. With the patients current likely symptomatic anemia, I spoke with Dr. Arana for admission and IV antibiotics for cellulitis. The patient was accepted for admission. DIAGNOSIS: Anemia, cellulitis TREATMENT PLAN/DISCHARGE INSTRUCTIONS: Admit to hospitalist services. The chart was completed utilizing [employer] voice recognition software.Grammatical errors, random word insertions, pronoun errors, and incomplete sentences are an occasional consequence of this system due to software limitations, ambient noise, and hardware issues.Any formal questions or concerns about the content, text, or information contained within the body of this dictation should be directly addressed to the physician for clarification. Past Med/Surg History Problem List (Updated 06/22/25 @ 15:11 by MARINA Alonzo) Cellulitis and abscess of foot (Acute) Shortness of breath (Acute) Anemia (Acute) Drug-induced liver injury Symptomatic anemia SOB (shortness of breath) Estrella's cyst of knee (Acute) Pancytopenia (Acute) History of lung cancer (Acute) Cellulitis of right leg (Acute) Chronic anemia (Acute) Pancytopenia due to chemotherapy Metastatic cancer Sofie-Mueller tear Acute on chronic blood loss anemia UGIB (upper gastrointestinal bleed) History of lung cancer (Acute) Thrombocytopenia (Acute) Anemia (Acute) Vomiting of blood (Acute) Acute bronchitis (Acute) Closed head injury (Acute) Concussion (Acute) Concussion (Acute) Occipital scalp laceration (Acute) Stented coronary artery Upper respiratory infection (Acute) Work related injury (Acute) Renal colic (Acute) Bilateral ureteral calculi (Acute) Hydronephrosis (Acute) Acute UTI (Acute) Leukocytosis (Acute) Melanoma Mohs x2 ANDRES (acute kidney injury) Encounter for pre-operative examination Left ureteral calculus Benign prostatic hyperplasia (BPH) with straining on urination Encounter for pre-operative examination Encounter for pre-operative examination Nephrolithiasis Pneumonia (Acute) Hypoxic (Acute) Hypomagnesemia (Acute) Acute hypoxemic respiratory failure HTN (hypertension) Paroxysmal atrial fibrillation 2010 had episode after back surgery and no problems since. Zio monitoring in Jun 2019 showed no evidence of recurrent atrial fibrillation follow with Dr. Carroll/ [facility] Bladder cancer dx'd 2007. 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 Surgical History History of urologic surgery History of cancer surgery bladder History of cystoscopy History of tooth extraction History of lithotripsy recent--08/21/[address] History of cardiac cath 2017 > 1 STENT > [facility] Hx of colonoscopy History of lumbar spinal fusion 2010 1968 Family History Father Diabetes Grandmother (Paternal) Diabetes Other Cancer Coronary heart disease Hypertension No family history of adverse response to anesthesia Social History Smoking Status: Current every day smoker Tobacco Type: Cigarettes Cigarettes Per Day: 4; Second Hand Exposure: No; Do You Dip or Chew Tobacco: No; Hx Alcohol Use: No Hx Substance Use: No Preferred Language: Belarusian Communication Ability: Effective Market Research Executive Required: No Beliefs That Will Affect Care: None marital status: Current Living Situation: Spouse Feels Safe at Home: Yes Assistive Devices: Denture - Upper, Denture - Lower and Glasses Allergies Allergies Allergy/AdvReac Type Severity Reaction Status Date / Time bee venom protein (honey bee) Allergy Severe ANAPHYLAXIS Verified 06/21/25 20:53 cephalexin [From Keflex] Allergy Unknown CAN'T Verified 06/21/25 20:53 MD CHIDI ADDED TO LIST Home Meds Home Medications Medication Instructions Recorded Confirmed atorvastatin 80 mg tablet 80 mg PO DAILY 04/22/20 06/21/25 cholecalciferol (vitamin D3) 25 1,000 unit PO QAM 04/22/20 06/21/25 mcg (1,000 unit) capsule (Vitamin D3) epinephrine 0.3 mg/0.3 mL 0.3 mg IM DIRECTED PRN Allergic 04/22/20 06/21/25 injection, auto-injector Reaction metformin 500 mg tablet 500 mg PO BIDM 04/22/20 06/21/25 nitroglycerin 0.4 mg sublingual 0.4 mg sublingual DIRECTED PRN 04/22/20 06/21/25 tablet (Nitrostat) Chest Pain tamsulosin 0.4 mg capsule 0.4 mg PO QAM 04/22/20 06/21/25 clotrimazole-betamethasone 1 1 applic topical BID PRN .flare ups 02/03/23 06/21/25 %-0.05 % topical cream isosorbide mononitrate 30 mg 30 mg PO QAM 02/03/23 06/21/25 tablet,extended release 24 hr lisinopril 2.5 mg tablet 2.5 mg PO DAILY 02/03/23 06/21/25 albuterol sulfate 90 mcg/actuation 2 inh inhalation Q4H PRN shortness 05/18/25 06/21/25 aerosol inhaler of breath or wheezing budesonide 160 mcg-glycopyr 9 2 inh inhalation BID 05/18/25 06/21/25 mcg-formot 4.8 mcg/actuation HFA inhaler (Breztri Aerosphere) folic acid 1 mg tablet 1 mg PO DAILY 05/18/25 06/21/25 prochlorperazine maleate 10 mg 10 mg PO Q6H PRN Nausea And 05/18/25 06/21/25 tablet Vomiting trazodone 50 mg tablet 50 mg PO HS 05/18/25 06/21/25 B-complex with vitamin C 1 cap PO DAILY 06/21/25 06/21/25 albuterol sulfate 2.5 mg/3 mL 2.5 mg inhalation Q4H PRN 06/21/25 06/21/25 (0.083 %) solution for nebulization Shortness Of Breath Or Wheezing aspirin 81 mg tablet,delayed 81 mg PO DAILY 06/21/25 06/21/25 release dexamethasone 4 mg tablet 8 mg PO DIRECTED PRN DAYS 2,3,4 06/21/25 06/21/25 OF CHEMO lidocaine-prilocaine 2.5 %-2.5 % 1 applic topical DIRECTED PRN 06/21/25 06/21/25 topical cream ACCESSING MEDIPORT loperamide 1 mg/7.5 mL oral liquid 0.5 mg PO DAILY PRN Diarrhea 06/21/25 06/21/25 (Imodium A-D) loratadine 10 mg tablet (Claritin) 10 mg PO DAILY PRN START DAY OF 06/21/25 06/21/25 CHEMO X 5 DAYS. metoprolol succinate 50 mg 50 mg PO BID 06/21/25 06/21/25 tablet,extended release 24 hr olanzapine 10 mg tablet 10 mg PO DIRECTED PRN DAYS 06/21/25 06/21/25 1,2,3,4 OF CHEMO ondansetron HCl 8 mg tablet 8 mg PO Q8H PRN NAUSEA/VOMITING 06/21/25 06/21/25 Previous Rx's Medication Instructions Recorded pantoprazole 40 mg tablet,delayed 40 mg PO BID #60 tabs 05/21/25 release Results & Data (ED) Vital Signs Vital Signs - 24 hr 06/21/25 19:01 06/21/25 19:33 06/21/25 19:34 Temperature 36.4 C L Temperature Source Oral Pulse Rate 46 L 77 76 Pulse Rate from SpO2 Sensor 76 Pulse Rhythm Regular Respiratory Rate 16 24 18 Respiratory Effort / Characteristics Non-Labored Spontaneous Respiratory Depth Normal Respiratory Pattern Regular Blood Pressure 101/56 L Blood Pressure Mean 71 Pulse Oximetry 100 100 99 Oxygen Delivery Method Room Air Room Air Room Air Sepsis Recent Fever Within 48 Hours No Sepsis New/Unexplained Change in Mental Status N/A Sepsis Action Taken by Nursing No Action Required 06/21/25 19:34 06/21/25 20:00 06/21/25 20:33 Temperature Temperature Source Pulse Rate 77 83 70 Pulse Rate from SpO2 Sensor 70 84 76 Pulse Rhythm Respiratory Rate 18 21 16 Respiratory Effort / Characteristics Respiratory Depth Respiratory Pattern Blood Pressure 106/49 L 91/51 L 119/45 L Blood Pressure Mean 76 69 69 Pulse Oximetry 99 98 99 Oxygen Delivery Method Room Air Room Air Room Air Sepsis Recent Fever Within 48 Hours Sepsis New/Unexplained Change in Mental Status Sepsis Action Taken by Nursing 06/21/25 21:03 06/21/25 21:30 06/21/25 22:09 Temperature Temperature Source Pulse Rate 76 75 73 Pulse Rate from SpO2 Sensor 38 L 80 Pulse Rhythm Respiratory Rate 17 14 16 Respiratory Effort / Characteristics Respiratory Depth Respiratory Pattern Blood Pressure 135/58 L 126/81 108/45 L Blood Pressure Mean 83 96 66 Pulse Oximetry 98 98 98 Oxygen Delivery Method Room Air Room Air Room Air Sepsis Recent Fever Within 48 Hours Sepsis New/Unexplained Change in Mental Status Sepsis Action Taken by Nursing Laboratory Data 06/22/25 07:59 06/22/25 07:59 Lab Results 06/21/25 06/21/25 06/21/25 Range/Units 19:30 20:02 20:47 WBC 1.77 L (4.8-10.8) K/ul RBC 1.87 L (4.70-6.10) M/uL Hgb 6.6 L* (14.0-18.0) g/dl Hct 21.8 L (42.0-52.0) % MCV 116.6 H (80.0-100.0) fL MCH 35.3 H (25.0-34.0) pg MCHC 30.3 L (32.0-36.0) g/dL RDW Std Deviation 77.3 H (36.4-46.3) fL RDW Coeff of Ele 18.1 H (11.5-14.5) % Plt Count 67 L (130-400) K/uL MPV 11.7 (9.4-12.4) fL Immature Gran % (Auto) 0.0 % Neut % (Auto) 25.4 % Lymph % (Auto) 53.1 % [place] % (Auto) 14.7 % Eos % (Auto) 6.2 % Baso % (Auto) 0.6 % Neut # (Auto) 0.45 L* (1.40-6.50) K/uL Lymph # (Auto) 0.94 L (1.20-3.40) K/uL [place] # (Auto) 0.26 (0.11-0.59) K/uL Eos # (Auto) 0.11 (0.00-0.50) K/uL Baso # (Auto) 0.01 (0.00-0.20) K/uL Immature Gran # (Auto) 0.00 L (0.01-0.20) K/uL Platelet Estimate Decreased L (Normal) Polychromasia 2+ Poikilocytosis Present Ovalocytes 1+ Echinocytes 1+ Sodium 144 (136-145) mmol/L Potassium 3.3 L (3.5-5.1) mmol/L Chloride 112 H (98-107) mmol/L Carbon Dioxide 22 (21-32) mmol/L Anion Gap 10 (3-11) BUN 17 (6-23) mg/dl Creatinine 1.22 (0.6-1.4) mg/dl Est Cr Clr Drug Dosing 46.7 ml/min eGFR 60.68 BUN/Creatinine Ratio 13.9 (10-20) Glucose 133 H (70-99(Fasting)) mg/dl Calcium 7.4 L (8.6-10.3) mg/dl Magnesium 1.5 L (1.7-2.4) mg/dl Total Bilirubin 0.6 (0.2-1.0) mg/dl AST 85 H (13-39) U/L ALT 74 H (7-52) U/L Alkaline Phosphatase 79 (34-104) U/L Troponin I High Sens 14.0 (0-20) pg/ml Total Protein 5.9 L (6.0-8.3) gm/dl Albumin 2.8 L (3.4-5.0) gm/dl Globulin 3.1 (2.5-4.0) gm/dl Albumin/Globulin Ratio 0.9 (0.9-2) Procalcitonin 0.21 (0-0.5) ng/ml Urine Color Dark Yellow Urine Appearance Clear (Clear) Urine pH 6.0 (4.5-7.5) Ur Specific [place] 1.017 (1.000-1.030) Urine Protein 1+ H (Negative) Urine Glucose (UA) Negative (Negative) Urine Ketones Negative (Negative) Urine Blood Negative (Negative) Urine Nitrite Negative (Negative) Urine Bilirubin Negative (Negative) Urine Urobilinogen Negative (Negative) Ur Leukocyte Esterase Negative (Negative) Urine WBC (Auto) 0-5 (0-5) /hpf Urine RBC (Auto) 0-2 (0-2) /hpf U Hyaline Cast (Auto) 6-10 H (0-2) /lpf U Epithel Cells (Auto) 3-5 H (0-2) /hpf Urine Bacteria (Auto) None Seen (None Seen) Hyaline Casts Present A (None Presnt) /lpf Urine Comment Blood Type B Positive Antibody Screen NEGATIVE Crossmatch See Detail Administered Medications Doxycycline Hyclate (Doxycycline Hyclate 100 Mg Cap) 100 mg PO BID CHANELLE Stop: 06/29/25 08:59 Last Admin: 06/22/25 09:38 Dose: 100 mg Documented By: GPF Fluticasone Furoate (Fluticasone Furoate 200mcg 14 Puffs/Inhaler) 1 puffs INH DAILY CHANELLE Stop: 07/22/25 08:59 Last Admin: 06/22/25 09:39 Dose: 1 puffs Documented By: GPF Folic Acid (Folic Acid 1 Mg Tab) 1 mg PO DAILY CHANELLE Stop: 07/22/25 08:59 Last Admin: 06/22/25 08:43 Dose: 1 mg Documented By: GPF Insulin Aspart (Insulin Aspart Per Unit Charge) 0 units SC ACHS CHANELLE Stop: 07/21/25 23:09 Last Admin: 06/22/25 12:58 Dose: 2 units Documented By: GPRoopa Co-signed By: EP Admin: 06/22/25 08:42 Dose: 3 units Documented By: GPRoopa Co-signed By: EP Admin: 06/22/25 00:15 Dose: Not Given Documented By: GD Isosorbide Mononitrate (Isosorbide [place] Extended Rel 30 Mg Tabcr) 30 mg PO QAM CHANELLE Stop: 07/22/25 08:59 Last Admin: 06/22/25 08:42 Dose: 30 mg Documented By: GPF Lisinopril (Lisinopril 2.5 Mg Tab) 2.5 mg PO DAILY CHANELLE Stop: 07/22/25 08:59 Last Admin: 06/22/25 08:42 Dose: 2.5 mg Documented By: GPF Magnesium Oxide (Magnesium Oxide 400 Mg Tab) 400 mg PO BID CHANELLE Stop: 07/22/25 09:29 Last Admin: 06/22/25 10:32 Dose: 400 mg Documented By: GPF Metoprolol Succinate (Metoprolol Succ 50mg Ext Rel Tab) 50 mg PO BID CHANELLE Stop: 07/22/25 08:59 Last Admin: 06/22/25 08:42 Dose: 50 mg Documented By: GPF Pantoprazole Sodium (Pantoprazole 40 Mg Tab) 40 mg PO BID CHANELLE Stop: 07/22/25 08:59 Last Admin: 06/22/25 08:43 Dose: 40 mg Documented By: GPF Potassium Chloride (Potassium Chloride Crtab 20 Meq Tabcr) 20 meq PO TID CHANELLE Stop: 07/22/25 09:24 Last Admin: 06/22/25 13:59 Dose: 20 meq Documented By: Admin: 06/22/25 09:39 Dose: 20 meq Documented By: GPF Tamsulosin HCl (Tamsulosin Hcl 0.4 Mg Cap) 0.4 mg PO QAM CHANELLE Stop: 07/22/25 08:59 Last Admin: 06/22/25 08:43 Dose: 0.4 mg Documented By: ANIBAL Umeclidinium/Vilanterol (Umeclidinium/Vilanterol 62.5/25mcg 7 Puffs/Inhaler) 1 puffs INH DAILY CHANELLE Stop: 07/22/25 08:59 Last Admin: 06/22/25 09:39 Dose: 1 puffs Documented By: ANIBAL Vitamin B Complex (Vitamin B Complex Tab) 1 tab PO DAILY CHANELLE Stop: 07/22/25 08:59 Last Admin: 06/22/25 08:42 Dose: 1 tab Documented By: ANIBAL Vitamin D (Cholecalciferol 25 Mcg (1000 Units) Tab) 25 mcg PO QAM CHANELLE Stop: 07/22/25 08:59 Last Admin: 06/22/25 08:42 Dose: 25 mcg Documented By: ANIBAL Discontinued Medications Furosemide (Furosemide Inj 20 Mg/2 Ml Vial) 20 mg IV ONE ONE Stop: 06/21/25 20:50 Last Admin: 06/21/25 21:01 Dose: 20 mg Documented By: EMIL Furosemide (Furosemide Inj 20 Mg/2 Ml Vial) 20 mg IV ONE ONE Stop: 06/22/25 03:30 Last Admin: 06/22/25 04:33 Dose: 20 mg Documented By: ANASTASIA Doxycycline Hyclate 100 mg/ (Dextrose) 100 mls @ 50 mls/hr IV NOW STA Stop: 06/21/25 22:46 Last Infusion: 06/21/25 23:39 Dose: Infused Documented By: Admin: 06/21/25 21:12 Dose: 50 mls/hr Documented By: EMIL Magnesium Sulfate/Dextrose (Magnesium Sulfate / D5w) 1 gm in 100 mls @ 50 mls/hr IV Q2H CHANELLE Stop: 06/22/25 03:14 Last Infusion: 06/22/25 02:21 Dose: Infused Documented By: Admin: 06/22/25 00:26 Dose: 50 mls/hr Documented By: Infusion: 06/22/25 00:26 Dose: Infused Documented By: Admin: 06/21/25 23:58 Dose: 50 mls/hr Documented By: ANASTASIA Ioversol (Optiray 320 100ml) 94 ml IV ONCE ONE Stop: 06/21/25 23:45 Last Admin: 06/21/25 23:44 Dose: 94 ml Documented By: CARMELA Potassium Chloride (Potassium Chloride Crtab 20 Meq Tabcr) 40 meq PO NOW STA Stop: 06/21/25 20:50 Last Admin: 06/21/25 21:00 Dose: 40 meq Documented By: EMIL Imaging Data Radiologist's Impression: Chest X-Ray 06/21/25 19:17 EXAM: Portable AP chest radiograph TECHNIQUE: AP portable radiograph of the chest was obtained. INDICATION: Shortness of breath Comparison: Chest radiograph May 18, 2025 FINDINGS: LINES and TUBES: Right-sided Port-A-Cath with tip projecting over the superior cavoatrial junction. CARDIOVASCULAR: Cardiac silhouette is stably and mildly enlarged in size. Atherosclerosis of the thoracic aorta. LUNGS/PLEURA: No focal consolidation identified. Redemonstrated diffuse chronic interstitial lung changes with fibrotic component. Mild pulmonary vascular congestion. No significant pleural fluid. No discernible pneumothorax. OSSEOUS/OTHER: No displaced acute osseous process identified. Chronic right-sided rib cage deformities. IMPRESSION: No focal consolidation is identified in the lungs. Redemonstrated diffuse chronic interstitial lung changes with fibrotic component. Mild congestive changes of the cardiovascular system. Electronically signed by Yandel Zapien 06-21-2025 8:13 PM Discharge Plan Visit Data Chief Complaint: Foot Injury/Pain Stated Complaint: RT FOOT INFECTED ED Provider: Kiel Franklin ED Midlevel Provider: Barb Jaimes Discharge Problem: Anemia, Shortness of breath, Cellulitis and abscess of foot Patient Disposition: Admitted As Inpatient Condition: Good Discharge Instructions Interventions: ED Discharge Assessment Last Done: 06/21/25 23:01 Discharge Problem: Anemia Qualifiers: Anemia type: unspecified type Qualified Code(s): D64.9 - Anemia, unspecified
[2025-06-21 20:43] LABS: Appearance Urine Clear (Clear); Bacteria Urine Automated None Seen (None Seen); Glucose Urine UA Negative (Negative); RBC Urine Automated 0-2 /hpf (0-2); WBC Urine Automated 0-5 /hpf (0-5)
[2025-06-21] MEDS: POTASSIUM CHLORIDE CRTAB 20 MEQ TABCR PO STA (21:00)
[2025-06-21] MEDS: FUROSEMIDE INJ 20 MG/2 ML VIAL IV ONE (21:01)
[2025-06-21] MEDS: DOXYCYCLINE HYCLATE 100 MG in DEXTROSE 5% MINI-B 100 ML IV STA (21:12)
[2025-06-21 21:13] LABS: Magnesium 1.5 mg/dl (1.7-2.4)
--- NOTE | 2025-06-21 22:30 | History & Physical Report ---
Date of Service June 21, 2025 Assessment & Plan (1) SOB (shortness of breath): Plan: Assessment and plan below following discussion of case with ED provider and reviewing patient history/pertinent normal/abnormal diagnostic test results. SOB Multifactorial Decompensated heart failure, history of diastolic dysfunction Symptomatic anemia secondary to slow cutaneous bleed, progressive hemoglobin drop from baseline, history of pancytopenia likely secondary to chemotherapy for metastatic cancer of unknown primary, concurrent aspirin Rx, hx CAD/PVD Right foot cellulitis, failed outpatient treatment, rule out abscess, no sepsis for now PAF not on anticoagulation as per patient preference valvular heart disease (moderate MR/mild TR) hypertension, stable hyperlipidemia, on statin Rx Persistent transaminitis from admission last month DM2 on oral medications, well-controlled as of recent hemoglobin A1c of 6 last January 2025 hx COPD, chronic cough symptoms as per patient bladder cancer status post surgery Recent Sofie-Mueller tear, currently on PPI history of BPH, recurrent UTIs Hypokalemia, hypomagnesemia ongoing tobacco abuse Admit to PCU Diuretic Rx Strict I/Os, daily weights, CHF education Transfuse PRBC to maintain hemoglobin of at least 8 given history CAD Hold aspirin for now until H&H stable Doxycycline for right foot cellulitis CT right foot rule out abscess Follow LFTs, hold statin, liver ultrasound in a.m., may need GI input Replace electrolytes ISS BG goal 110-140, carb count coverage Nicotine patch as needed DVT prophylaxis. SCDs Re: Cutaneous bleed, thrombocytopenia Full code Text document was generated using [employer] voice recognition software. It may contain grammatical or spelling errors. Kindly contact undersigned for clarification of any documentation item in question. History of Present Illness Chief Complaint: Shortness of breath, worsening right foot swelling Primary Care Provider: Loretta Treviño MD History obtained from patient and records. Medical history significant for chronic diastolic heart failure (EF 55%, TTE 2024), coronary artery disease s/p stent (2016), PAF not on anticoagulation as per patient preference, valvular heart disease (moderate MR/mild TR), PVD, hypertension, hyperlipidemia, DM2 on oral medications, COPD, metastatic cancer unknown primary ongoing chemotherapy, bladder cancer status post surgery, skin cancer as per records, Sofie-Mueller tear, history of BPH, recurrent UTIs, chronic pancytopenia (baseline hemoglobin 7-8), ongoing tobacco abuse. Recent confinement last month for acute on chronic anemia secondary to UGIB. Transaminitis noted on blood work. EGD showed GE junction erosion and healing Sofie-Mueller tear. Patient discharged on PPI Rx. Home aspirin resumed on discharge. Ecchymoses noted on upper extremities with aspirin Rx following discharge as per patient. Patient seen at the ER 3 days ago for spontaneous right foot swelling associated with pain. Workup negative for blood clot. Patient discharged on Keflex course which was later switched to Augmentin due to concerns for previous allergies. Patient sustained a a bleeding open wound on the left forearm after falling shortly after discharge from the ER. Patient noted worsening SOB symptoms over the the last 2 days without chest pain. Symptoms worse on exertion. No unusual cough symptoms. Denies fluid retention. Patient denies abdominal pain, black/bloody stools/hematuria. Right foot swelling not responding to Augmentin Rx. Some extension to right lower leg. No fever, no chills. MEDICAL HISTORY: As above. SURGERIES: He had back surgery x 2 and bladder surgery, cystoscopy, small b ladder tumor removal, vascular procedures, cataract surgeries, thoracoscopy/mediastinal biopsy FAMILY HISTORY: Heart disease, DM SOCIAL HISTORY: 3/4 pack daily. 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[employer] pancytopenia Allergies Allergy/AdvReac Type Severity Reaction Status Date / Time bee venom protein (honey bee) Allergy Severe ANAPHYLAXIS Verified 06/21/25 20:53 cephalexin [From Keflex] Allergy Unknown CAN'T Verified 06/21/25 20:53 MD CHIDI ADDED TO LIST Home Medications Medication Instructions Recorded Confirmed Type atorvastatin 80 mg tablet 80 mg PO DAILY 04/22/20 06/21/25 History cholecalciferol (vitamin D3) 25 1,000 unit PO QAM 04/22/20 06/21/25 History mcg (1,000 unit) capsule (Vitamin D3) epinephrine 0.3 mg/0.3 mL 0.3 mg IM DIRECTED PRN Allergic 04/22/20 06/21/25 History injection, auto-injector Reaction metformin 500 mg tablet 500 mg PO BIDM 04/22/20 06/21/25 History nitroglycerin 0.4 mg sublingual 0.4 mg sublingual DIRECTED PRN 04/22/20 06/21/25 History tablet (Nitrostat) Chest Pain tamsulosin 0.4 mg capsule 0.4 mg PO QAM 04/22/20 06/21/25 History clotrimazole-betamethasone 1 1 applic topical BID PRN .flare ups 02/03/23 06/21/25 History %-0.05 % topical cream isosorbide mononitrate 30 mg 30 mg PO QAM 02/03/23 06/21/25 History tablet,extended release 24 hr lisinopril 2.5 mg tablet 2.5 mg PO DAILY 02/03/23 06/21/25 History albuterol sulfate 90 mcg/actuation 2 inh inhalation Q4H PRN shortness 05/18/25 06/21/25 History aerosol inhaler of breath or wheezing budesonide 160 mcg-glycopyr 9 2 inh inhalation BID 05/18/25 06/21/25 History mcg-formot 4.8 mcg/actuation HFA inhaler (Breztri Aerosphere) folic acid 1 mg tablet 1 mg PO DAILY 05/18/25 06/21/25 History prochlorperazine maleate 10 mg 10 mg PO Q6H PRN Nausea And 05/18/25 06/21/25 History tablet Vomiting trazodone 50 mg tablet 50 mg PO HS 05/18/25 06/21/25 History pantoprazole 40 mg tablet,delayed 40 mg PO BID #60 tabs 05/21/25 06/21/25 Rx release B-complex with vitamin C 1 cap PO DAILY 06/21/25 06/21/25 History albuterol sulfate 2.5 mg/3 mL 2.5 mg inhalation Q4H PRN 06/21/25 06/21/25 History (0.083 %) solution for nebulization Shortness Of Breath Or Wheezing aspirin 81 mg tablet,delayed 81 mg PO DAILY 06/21/25 06/21/25 History release dexamethasone 4 mg tablet 8 mg PO DIRECTED PRN DAYS 2,3,4 06/21/25 06/21/25 History OF CHEMO lidocaine-prilocaine 2.5 %-2.5 % 1 applic topical DIRECTED PRN 06/21/25 06/21/25 History topical cream ACCESSING MEDIPORT loperamide 1 mg/7.5 mL oral liquid 0.5 mg PO DAILY PRN Diarrhea 06/21/25 06/21/25 History (Imodium A-D) loratadine 10 mg tablet (Claritin) 10 mg PO DAILY PRN START DAY OF 06/21/25 06/21/25 History CHEMO X 5 DAYS. metoprolol succinate 50 mg 50 mg PO BID 06/21/25 06/21/25 History tablet,extended release 24 hr olanzapine 10 mg tablet 10 mg PO DIRECTED PRN DAYS 06/21/25 06/21/25 History 1,2,3,4 OF CHEMO ondansetron HCl 8 mg tablet 8 mg PO Q8H PRN NAUSEA/VOMITING 06/21/25 06/21/25 History Past Med/Surg History Problem List (Updated 06/22/25 @ 07:46 by Hiren Arana MD) SOB (shortness of breath) Estrella's cyst of knee (Acute) Pancytopenia (Acute) History of lung cancer (Acute) Cellulitis of right leg (Acute) Chronic anemia (Acute) Pancytopenia due to chemotherapy Metastatic cancer Sofie-Mueller tear Acute on chronic blood loss anemia UGIB (upper gastrointestinal bleed) History of lung cancer (Acute) Thrombocytopenia (Acute) Anemia (Acute) Vomiting of blood (Acute) Acute bronchitis (Acute) Closed head injury (Acute) Concussion (Acute) Concussion (Acute) Occipital scalp laceration (Acute) Stented coronary artery Upper respiratory infection (Acute) Work related injury (Acute) Renal colic (Acute) Bilateral ureteral calculi (Acute) Hydronephrosis (Acute) Acute UTI (Acute) Leukocytosis (Acute) Melanoma Mohs x2 ANDRES (acute kidney injury) Encounter for pre-operative examination Left ureteral calculus Benign prostatic hyperplasia (BPH) with straining on urination Encounter for pre-operative examination Encounter for pre-operative examination Nephrolithiasis Pneumonia (Acute) Hypoxic (Acute) Hypomagnesemia (Acute) Acute hypoxemic respiratory failure HTN (hypertension) Paroxysmal atrial fibrillation 2010 had episode after back surgery and no problems since. Zio monitoring in Jun 2019 showed no evidence of recurrent atrial fibrillation follow with Dr. Carroll/ [facility] Bladder cancer dx'd 2007. 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 Surgical History History of urologic surgery History of cancer surgery bladder History of cystoscopy History of tooth extraction History of lithotripsy recent--08/21/21 @ OR History of cardiac cath 2017 > 1 STENT > [facility] Hx of colonoscopy History of lumbar spinal fusion 2010 1968 Family History Father Diabetes Grandmother (Paternal) Diabetes Other Cancer Coronary heart disease Hypertension No family history of adverse response to anesthesia Social History Smoking Status: Current every day smoker Tobacco Type: Cigarettes Cigarettes Per Day: 4; Second Hand Exposure: No; Do You Dip or Chew Tobacco: No; Hx Alcohol Use: No Hx Substance Use: No Preferred Language: Mosotho Communication Ability: Effective Market Basket Maker Required: No Beliefs That Will Affect Care: None marital status: Current Living Situation: Spouse Feels Safe at Home: Yes Assistive Devices: Denture - Upper, Denture - Lower and Glasses Review of Systems Review of Systems: As per HPI, all other systems reviewed and negative Physical Exam Physical Exam: GENERAL: Comfortable, pleasant, episodic tachypnea SKIN: Pallor, warm HEENT: Bespectacled, pale palpebral conjunctivae, no ptosis, moist buccal mucosa NECK : Supple, no tenderness CHEST : Decreased breath sounds, no tenderness HEART : RRR, systolic murmur ABDOMEN: Some distention, nontender EXTREMITIES : Tender right foot swelling with some extension to the distal lower leg, ecchymoses on both forearms, dressing over left forearm/elbow junction, no other conspicuous deformities noted NEUROLOGIC : Coherent, no facial asymmetry, no other gross focality Results & Data Results & Data Vital Signs (Past 12 Hours) Vital Signs Temp Pulse Resp BP Pulse Ox O2 Del Method 06/21/25 20:33 70 16 119/45 L 99 Room Air 06/21/25 20:00 83 21 91/51 L 98 Room Air 06/21/25 19:34 77 18 106/49 L 99 Room Air 06/21/25 19:34 76 18 99 Room Air 06/21/25 19:33 77 24 100 Room Air 06/21/25 19:01 36.4 C L 46 L 16 101/56 L 100 Room Air Laboratory Results Laboratory Results WBC 1.77 K/ul (4.8-10.8) L 06/21/25 19:30 RBC 1.87 M/uL (4.70-6.10) L 06/21/25 19:30 Hgb 6.6 g/dl (14.0-18.0) L* 06/21/25 19:30 Hct 21.8 % (42.0-52.0) L 06/21/25 19:30 MCV 116.6 fL (80.0-100.0) H 06/21/25 19:30 MCH 35.3 pg (25.0-34.0) H 06/21/25 19: MCHC 30.3 g/dL (32.0-36.0) L 06/21/25 19:30 RDW Std Deviation 77.3 fL (36.4-46.3) H 06/21/25 19:30 RDW Coeff of Ele 18.1 % (11.5-14.5) H 06/21/25 19:30 Plt Count 67 K/uL (130-400) L 06/21/25 19: MPV 11.7 fL (9.4-12.4) 06/21/25 19:30 Immature Gran % (Auto) 0.0 % 06/21/25 19:30 Neut % (Auto) 25.4 % 06/21/25 19:30 Lymph % (Auto) 53.1 % 06/21/25 19:30 [place] % (Auto) 14.7 % 06/21/25 19:30 Eos % (Auto) 6.2 % 06/21/25 19:30 Baso % (Auto) 0.6 % 06/21/25 19:30 Neut # (Auto) 0.45 K/uL (1.40-6.50) L* 06/21/25 19:30 Lymph # (Auto) 0.94 K/uL (1.20-3.40) L 06/21/25 19:30 [place] # (Auto) 0.26 K/uL (0.11-0.59) 06/21/25 19:30 Eos # (Auto) 0.11 K/uL (0.00-0.50) 06/21/25 19:30 Baso # (Auto) 0.01 K/uL (0.00-0.20) 06/21/25 19:30 Immature Gran # (Auto) 0.00 K/uL (0.01-0.20) L 06/21/25 19:30 Platelet Estimate Decreased (Normal) L 06/21/25 19:30 Polychromasia 2+ 06/21/25 19: Poikilocytosis Present 06/21/25: Ovalocytes 1+ 06/21/25 19: Echinocytes 1+ 06/21/25 19: Sodium 144 mmol/L (136-145) 06/21/25: Potassium 3.3 mmol/L (3.5-5.1) L 06/21/25 19: Chloride 112 mmol/L (98-107) H 06/21/25 19: Carbon Dioxide 22 mmol/L (21-32) 06/21/25: Anion Gap 10 (3-11) 06/21/25: BUN 17 mg/dl (6-23) 06/21/25: Creatinine 1.22 mg/dl (0.6-1.4) 06/21/25: Est Cr Clr Drug Dosing 46.7 ml/min 06/21/25 19: eGFR 60.68 06/21/25 19:30 BUN/Creatinine Ratio 13.9 (10-20) 06/21/25 19: Glucose 133 mg/dl (70-99(Fasting)) H 06/21/25 19: Calcium 7.4 mg/dl (8.6-10.3) L 06/21/25 19: Magnesium 1.5 mg/dl (1.7-2.4) L 06/21/25 19: Total Bilirubin 0.6 mg/dl (0.2-1.0) 06/21/25: AST 85 U/L (13-39) H 06/21/25 19: ALT 74 U/L (7-52) H 06/21/25 19: Alkaline Phosphatase 79 U/L (34-104) 06/21/25: Troponin I High Sens 14.0 pg/ml (0-20) 06/21/25 19: Total Protein 5.9 gm/dl (6.0-8.3) L 06/21/25: Albumin 2.8 gm/dl (3.4-5.0) L 06/21/25: Globulin 3.1 gm/dl (2.5-4.0) 06/21/25: Albumin/Globulin Ratio 0.9 (0.9-2) 06/21/25: Urine Color Dark Yellow 06/21/25 20: Urine Appearance Clear (Clear) 06/21/25 20: Urine pH 6.0 (4.5-7.5) 06/21/25 20:02 Ur Specific [place] 1.017 (1.000-1.030) 06/21/25 20:02 Urine Protein 1+ (Negative) H 06/21/25 20:02 Urine Glucose (UA) Negative (Negative) 06/21/25 20:02 Urine Ketones Negative (Negative) 06/21/25 20: Urine Blood Negative (Negative) 06/21/25 20: Urine Nitrite Negative (Negative) 06/21/25 20: Urine Bilirubin Negative (Negative) 06/21/25 20:02 Urine Urobilinogen Negative (Negative) 06/21/25 20:02 Ur Leukocyte Esterase Negative (Negative) 06/21/25 20:02 Urine WBC (Auto) 0-5 /hpf (0-5) 06/21/25 20:02 Urine RBC (Auto) 0-2 /hpf (0-2) 06/21/25 20:02 U Hyaline Cast (Auto) 6-10 /lpf (0-2) H 06/21/25 20:02 U Epithel Cells (Auto) 3-5 /hpf (0-2) H 06/21/25 20:02 Urine Bacteria (Auto) None Seen (None Seen) 06/21/25 20:02 Hyaline Casts Present /lpf (None Presnt) A 06/21/25 20:02 Urine Comment 09/19/25 20:02 Blood Type B Positive 06/21/25 20:47 Antibody Screen NEGATIVE 06/21/25 20:47 Impressions Chest X-Ray 06/21/25 19:17 EXAM: Portable AP chest radiograph TECHNIQUE: AP portable radiograph of the chest was obtained. INDICATION: Shortness of breath Comparison: Chest radiograph May 18, 2025 FINDINGS: LINES and TUBES: Right-sided Port-A-Cath with tip projecting over the superior cavoatrial junction. CARDIOVASCULAR: Cardiac silhouette is stably and mildly enlarged in size. Atherosclerosis of the thoracic aorta. LUNGS/PLEURA: No focal consolidation identified. Redemonstrated diffuse chronic interstitial lung changes with fibrotic component. Mild pulmonary vascular congestion. No significant pleural fluid. No discernible pneumothorax. OSSEOUS/OTHER: No displaced acute osseous process identified. Chronic right-sided rib cage deformities. IMPRESSION: No focal consolidation is identified in the lungs. Redemonstrated diffuse chronic interstitial lung changes with fibrotic component. Mild congestive changes of the cardiovascular system. Electronically signed by Yandel Zapien 06-21-2025 8:13 PM Diagnostic Findings EKG as per my interpretation :
[2025-06-21] MEDS ORDERED: SODIUM CHLORIDE 0.9% 100 ML IV PRN (23:03)
[2025-06-21] MEDS ORDERED: GLUCAGON FOR INJ 1 MG VIAL SQ PRN (23:05)
[2025-06-21] MEDS ORDERED: GLUCOSE 10 TAB/TUBE PO PRN (23:05)
[2025-06-21] MEDS ORDERED: CARBOHYDRATES FOR HYPOGLYCEMIA PO PRN (23:05)
[2025-06-21] MEDS ORDERED: GLUCOSE 40% GEL 15 GM TUBE PO PRN (23:05)
[2025-06-21] MEDS ORDERED: DEXTROSE 50% 50 ML SYRINGE IV PRN (23:05)
[2025-06-21] MEDS ORDERED: PROMETHAZINE 6.25 MG/50.25 ML BAG IV PRN (23:07)
[2025-06-21] MEDS ORDERED: ACETAMINOPHEN 325 MG TAB PO PRN (23:07)
--- NOTE | 2025-06-21 23:20 | XRay Report ---
Exam(s): XR RIGHT FOOT, 3+ views EXAM: XR Right Foot Complete, 3 or More Views CLINICAL HISTORY: Reason for exam: cellulitis. TECHNIQUE: Frontal, lateral and oblique views of the right foot. COMPARISON: No relevant prior studies available. FINDINGS: Bones/joints: No acute fracture. No dislocation. Soft tissues: Unremarkable. No radiopaque foreign body. IMPRESSION: No acute osseous findings. Electronically signed by: Concetta Dumont M.D. 06/21/25 23:19 PM
[2025-06-21] MEDS: OPTIRAY 320 100ml IV ONE (23:44)
[2025-06-21] MEDS: MAGNESIUM SULFATE / D5W 1 GM/100 ML BAG IV SCH (23:58)
[2025-06-22] MEDS: INSULIN ASPART PER UNIT CHARGE SC SCH (00:15)
--- NOTE | 2025-06-22 00:58 | CT Scan Report ---
Exam(s): CT RIGHT FOOT With Contrast IV Amt: 94 ml EXAM: CT Right Lower Extremity With Intravenous Contrast, Foot CLINICAL HISTORY: Reason for exam: swelling. TECHNIQUE: Axial computed tomography images of the right foot with intravenous contrast. CTDI is 15.3 mGy and DLP is 331.08 mGy-cm. Automated exposure control was utilized for the study. A dose lowering technique was utilized adhering to the principles of ALARA. CONTRAST: Patient received 94 ml of IV contrast COMPARISON: Same-day right foot radiographs FINDINGS: Bones/joints: No acute fracture or dislocation. Mild osteoarthritis of the 1st MTP joint. Soft tissues: Diffuse subcutaneous edema. No radiopaque foreign body. IMPRESSION: Diffuse subcutaneous edema. Appearance may reflect cellulitis. No soft tissue gas or abscess. Electronically signed by: Concetta Dumont M.D. 06/22/25 00:57 AM
[2025-06-22] MEDS: FUROSEMIDE INJ 20 MG/2 ML VIAL IV ONE (04:33)
[2025-06-22] MEDS ORDERED: ALBUT/IPRATROP 3MG/0.5MG NEB 3 ML VIAL NEB PRN (07:51)
[2025-06-22] MEDS ORDERED: ACETAMINOPHEN 500 MG TAB PO PRN (07:52)
[2025-06-22 08:07] VITALS: RESP 18
[2025-06-22 08:24] LABS: Hematocrit (blood only) 25.1 % (42.0-52.0); Hemoglobin 8.1 g/dl (14.0-18.0); Mean Corpuscular Hemoglobin 34.6 pg (25.0-34.0); Mean Corpuscular Volume 107.3 fL (80.0-100.0); Platelet Count 55 K/uL (130-400); RDW Standard Deviation 76.4 fL (36.4-46.3); Red Blood Count 2.34 M/uL (4.70-6.10); White Blood Count 1.36 K/ul (4.8-10.8)
[2025-06-22 08:39] LABS: Anion Gap 7.0 (3-11); Blood Urea Nitrogen 15.0 mg/dl (6-23); Calcium 7.0 mg/dl (8.6-10.3); Carbon Dioxide 24.0 mmol/L (21-32); Chloride 112.0 mmol/L (98-107); Creatinine Clr Calc Pharmacy 52.7 ml/min; Glucose 105.0 mg/dl (70-99(Fasting)); Magnesium 1.7 mg/dl (1.7-2.4); Potassium 3.1 mmol/L (3.5-5.1); Sodium 143.0 mmol/L (136-145)
[2025-06-22] MEDS: CHOLECALCIFEROL 25 MCG (1000 UNITS) TAB PO SCH (08:42)
[2025-06-22] MEDS: VITAMIN B COMPLEX TAB PO SCH (08:42)
[2025-06-22] MEDS: ISOSORBIDE MONO EXTENDED REL 30 MG TABCR PO SCH (08:42)
[2025-06-22] MEDS: METOPROLOL SUCC 50MG EXT REL TAB PO SCH (08:42)
[2025-06-22] MEDS: TAMSULOSIN HCL 0.4 MG CAP PO SCH (08:43)
[2025-06-22] MEDS: FOLIC ACID 1 MG TAB PO SCH (08:43)
[2025-06-22] MEDS ORDERED: NON-FORMULARY MEDICATION (Budesonide-Glycopyr-Formoterol [Breztri Aerosphere] 160-9-4.8 mc INH SCH (09:00)
[2025-06-22] MEDS: DOXYCYCLINE HYCLATE 100 MG CAP PO SCH (09:38)
[2025-06-22] MEDS: POTASSIUM CHLORIDE CRTAB 20 MEQ TABCR PO SCH (09:39)
[2025-06-22] MEDS: UMECLIDINIUM/VILANTEROL 62.5/25MCG 7 PUFFS/INHALER INH SCH (09:39)
[2025-06-22] MEDS: FLUTICASONE FUROATE 200MCG 14 PUFFS/INHALER INH SCH (09:39)
[2025-06-22] MEDS: MAGNESIUM OXIDE 400 MG TAB PO SCH (10:32)
--- NOTE | 2025-06-22 12:11 | Hospitalist Progress Note ---
Date of Service June 22, 2025 Assessment & Plan (1) Cellulitis of right leg: (2) Pancytopenia due to chemotherapy: (3) Symptomatic anemia: (4) Metastatic cancer: (5) Drug-induced liver injury: (6) Paroxysmal atrial fibrillation: (7) COPD (chronic obstructive pulmonary disease): (8) Diabetes mellitus, type II: Plan Patient 79-year-old gentleman presents with shortness of breath due to progressive anemia as well as evidence of cellulitis of right lower extremity. Patient's dyspnea significantly improved status post transfusion. Patient anemic/pancytopenic due to his chemotherapy treatments. Will continue supportive care Continue oral doxycycline, cellulitis lower extremity seems to be improved, anticipate his pain and difficulty ambulating will improve as the cellulitis improves. Patient has some mild transaminitis. This has been stable. This is most likely due to his chemotherapies, specifically Keytruda. AST/ALT only mildly elevated, would not recommend stopping his chemotherapy if he wants to continue to pursue. No need to hold statin. No need to further investigate with liver ultrasound. Continue to monitor glucose and cover with sliding scale Continue other outpatient medications Continue inhalers Anticipate discharging home when cellulitis is improved 1 to 2 days. Replace electrolytes, monitor laboratory studies and renal function. [facility] Admission and Anticipated Discharge Date Admission Date: June 21, 2025 Subjective Patient's shortness of breath significantly improved. Right foot and ankle pain still somewhat tender to when he ambulates seems to be a little less swollen. Physical Exam Physical Exam: Constitutional: Alert, nontoxic, no acute distress HEENT: Mucous membranes moist. Lungs: Decreased breath sounds, no significant rales CV: S1-S2, regular Abdomen: Soft, nontender, nondistended Extremities: Right foot and ankle red, swollen, tender, slightly warm, seems to be receding slightly from the marked line that was placed on admission Neuro: No focal deficits Psych: Cooperative, normal mood Results & Data Results & Data Vital Signs (Past 12 Hours) Vital Signs Temp Pulse Pulse Resp BP BP Pulse Ox 06/22/25 11:19 36.6 C 42 L 18 131/59 L 95 06/22/25 08:05 36.9 C 60 18 121/66 92 06/22/25 07:49 06/22/25 05:09 16 136/57 L 95 06/22/25 04:36 78 17 142/86 H 95 06/22/25 03:48 77 17 136/62 93 06/22/25 03:36 81 17 117/61 96 06/22/25 03:06 70 16 135/62 96 06/22/25 02:51 80 16 135/68 94 06/22/25 02:39 133/54 L 06/22/25 02:34 36.8 C 71 16 134/60 97 06/22/25 02:32 36.8 C 73 16 129/67 96 06/22/25 02:10 80 16 136/66 95 06/22/25 01:29 87 16 125/53 L 95 06/22/25 01:10 97 H 16 121/66 93 06/22/25 01:00 75 16 133/66 97 06/22/25 00:40 76 16 131/53 L 06/22/25 00:31 80 16 138/54 L 96 06/22/25 00:25 36.9 C 74 16 129/52 L 98 06/22/25 00:20 06/22/25 00:04 36.7 C 66 16 152/78 H 98 O2 Del Method 06/22/25 11:19 Room Air 06/22/25 08:05 Room Air 06/22/25 07:49 Room Air 06/22/25 05:09 06/22/25 04:36 06/22/25 03:48 06/22/25 03:36 06/22/25 03:06 06/22/25 02:51 06/22/25 02:39 06/22/25 02:34 06/22/25 02:32 06/22/25 02:10 06/22/25 01:29 06/22/25 01:10 06/22/25 01:00 06/22/25 00:40 06/22/25 00:31 06/22/25 00:25 06/22/25 00:20 Room Air 06/22/25 00:04 Diagnostic Findings Reviewed imaging, laboratory and diagnostic studies. Pertinent findings as below. WBCs 1.3 Hemoglobin 8.1, improved posttransfusion Platelets of 55 Potassium 3.1 Creatinine 1.08 AST 85 ALT 74 Procalcitonin 0.21
[2025-06-23 03:29] VITALS: TEMP 98.1
[2025-06-23 06:18] LABS: Hematocrit (blood only) 24.5 % (42.0-52.0); Hemoglobin 8.1 g/dl (14.0-18.0); Mean Corpuscular Hemoglobin 35.5 pg (25.0-34.0); Mean Corpuscular Volume 107.5 fL (80.0-100.0); Platelet Count 48 K/uL (130-400); RDW Standard Deviation 74.9 fL (36.4-46.3); Red Blood Count 2.28 M/uL (4.70-6.10); White Blood Count 1.82 K/ul (4.8-10.8)
[2025-06-23 06:36] LABS: Anion Gap 7.0 (3-11); Blood Urea Nitrogen 16.0 mg/dl (6-23); Calcium 7.5 mg/dl (8.6-10.3); Carbon Dioxide 22.0 mmol/L (21-32); Chloride 117.0 mmol/L (98-107); Creatinine Clr Calc Pharmacy 51.7 ml/min; Glucose 88.0 mg/dl (70-99(Fasting)); Magnesium 1.7 mg/dl (1.7-2.4); Potassium 3.4 mmol/L (3.5-5.1); Sodium 146.0 mmol/L (136-145)
[2025-06-23 07:15] VITALS: BP 127/60; O2SAT 94
[2025-06-23] MEDS: ATORVASTATIN 40 MG TAB PO SCH (09:19)
--- NOTE | 2025-06-23 10:30 | Discharge Summary ---
Discharge Summary Date of Service June 23, 2025 Principal Dx & Hospital Course #1 = Principal Diagnosis (1) Cellulitis of right leg: (2) Pancytopenia due to chemotherapy: (3) Symptomatic anemia: (4) Metastatic cancer: (5) Drug-induced liver injury: (6) Paroxysmal atrial fibrillation: (7) COPD (chronic obstructive pulmonary disease): (8) Diabetes mellitus, type II: Plan Patient 79-year-old gentleman presented to the emergency room with multiple complaints including shortness of breath, dyspnea on exertion and also concern for cellulitis or infection of his right ankle. Patient was noted to be significantly anemic. Patient is chronically pancytopenic associated with his chemotherapy but was more significantly anemic. Patient was admitted to hospital. Started on oral antibiotics for cellulitis of the lower extremity. He was transfused 2 units of packed red blood cells. After transfusion patient had significant improvements of his shortness of breath and dyspnea. He was also given some Lasix for some mild volume overload. Patient cellulitis seems to be improving. Continued on oral doxycycline. CTA of the foot and ankle did not show any evidence of abscess formation. He was not febrile. Pain and swelling was improving. Patient was extremely interested in getting home. He reports that tomorrow the electricity in her apartment building returned off and he will need to assist his . He feels as though he has improved and will continue taking the oral antibiotics. He will follow-up with his outpatient PCP and oncologist. His electrolytes were replaced while here in the hospital as well and can continue his care as an outpatient. Notes For Next Care Provider Consider monitoring hemoglobin and electrolytes and 10 to 14 days Medication Changes From Visit Doxycycline for cellulitis Potassium magnesium for electrolyte replacement Admission HPI Per Admitting Provider History obtained from patient and records. Medical history significant for chronic diastolic heart failure (EF 55%, TTE 2024), coronary artery disease s/p stent (2017), PAF not on anticoagulation as per patient preference, valvular heart disease (moderate MR/mild TR), PVD, hypertension, hyperlipidemia, DM2 on oral medications, COPD, metastatic cancer unknown primary ongoing chemotherapy, bladder cancer status post surgery, skin cancer as per records, Sofie-Mueller tear, history of BPH, recurrent UTIs, chronic pancytopenia (basel ine hemoglobin 7-8), ongoing tobacco abuse. Recent confinement last month for acute on chronic anemia secondary to UGIB. Transaminitis noted on blood work. EGD showed GE junction erosion and healing Sofie-Mueller tear. Patient discharged on PPI Rx. Home aspirin resumed on discharge. Ecchymoses noted on upper extremities with aspirin Rx following discharge as per patient. Patient seen at the ER 3 days ago for spontaneous right foot swelling associated with pain. Workup negative for blood clot. Patient discharged on Keflex course which was later switched to Augmentin due to concerns for previous allergies. Patient sustained a a bleeding open wound on the left forearm after falling shortly after discharge from the ER. Patient noted worsening SOB symptoms over the the last 2 days without chest pain. Symptoms worse on exertion. No unusual cough symptoms. Denies fluid retention. Patient denies abdominal pain, black/bloody stools/hematuria. Right foot swelling not responding to Augmentin Rx. Some extension to right lower leg. No fever, no chills. MEDICAL HISTORY: As above. SURGERIES: He had back surgery x 2 and bladder surgery, cystoscopy, small bladder tumor removal, vascular procedures, cataract surgeries, thoracoscopy/mediastinal biopsy FAMILY HISTORY: Heart disease, DM SOCIAL HISTORY: 3/4 pack daily. 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 Lungs: Clear to auscultation, decreased, no wheezes rales or rhonchi CV: S1-S2, regular Abdomen: Soft, nontender, nondistended Extremities: Right foot and ankle still somewhat erythematous and warm, however this appears to be less fiery and less swollen. Less tenderness to palpation Neuro: No focal deficits Psych: Cooperative, normal mood Updated Medication List Medication Instructions Recorded Confirmed Type atorvastatin 80 mg tablet 80 mg PO DAILY 04/22/20 06/21/25 History cholecalciferol (vitamin D3) 25 1,000 unit PO QAM 04/22/20 06/21/25 History mcg (1,000 unit) capsule (Vitamin D3) epinephrine 0.3 mg/0.3 mL 0.3 mg IM DIRECTED PRN Allergic 04/22/20 06/21/25 History injection, auto-injector Reaction metformin 500 mg tablet 500 mg PO BIDM 04/22/20 06/21/25 History nitroglycerin 0.4 mg sublingual 0.4 mg sublingual DIRECTED PRN 04/22/20 06/21/25 History tablet (Nitrostat) Chest Pain tamsulosin 0.4 mg capsule 0.4 mg PO QAM 04/22/20 06/21/25 History clotrimazole-betamethasone 1 1 applic topical BID PRN .flare ups 02/03/23 06/21/25 History %-0.05 % topical cream isosorbide mononitrate 30 mg 30 mg PO QAM 02/03/23 06/21/25 History tablet,extended release 24 hr lisinopril 2.5 mg tablet 2.5 mg PO DAILY 02/03/23 06/21/25 History albuterol sulfate 90 mcg/actuation 2 inh inhalation Q4H PRN shortness 05/18/25 06/21/25 History aerosol inhaler of breath or wheezing budesonide 160 mcg-glycopyr 9 2 inh inhalation BID 05/18/25 06/21/25 History mcg-formot 4.8 mcg/actuation HFA inhaler (Breztri Aerosphere) folic acid 1 mg tablet 1 mg PO DAILY 05/18/25 06/21/25 History prochlorperazine maleate 10 mg 10 mg PO Q6H PRN Nausea And 05/18/25 06/21/25 History tablet Vomiting trazodone 50 mg tablet 50 mg PO HS 05/18/25 06/21/25 History pantoprazole 40 mg tablet,delayed 40 mg PO BID #60 tabs 05/21/25 06/21/25 Rx release B-complex with vitamin C 1 cap PO DAILY 06/21/25 06/21/25 History albuterol sulfate 2.5 mg/3 mL 2.5 mg inhalation Q4H PRN 06/21/25 06/21/25 History (0.083 %) solution for nebulization Shortness Of Breath Or Wheezing aspirin 81 mg tablet,delayed 81 mg PO DAILY 06/21/25 06/21/25 History release dexamethasone 4 mg tablet 8 mg PO DIRECTED PRN DAYS 2,3,4 06/21/25 06/21/25 History OF CHEMO lidocaine-prilocaine 2.5 %-2.5 % 1 applic topical DIRECTED PRN 06/21/25 06/21/25 History topical cream ACCESSING MEDIPORT loperamide 1 mg/7.5 mL oral liquid 0.5 mg PO DAILY PRN Diarrhea 06/21/25 06/21/25 History (Imodium A-D) loratadine 10 mg tablet (Claritin) 10 mg PO DAILY PRN START DAY OF 06/21/25 06/21/25 History CHEMO X 5 DAYS. metoprolol succinate 50 mg 50 mg PO BID 06/21/25 06/21/25 History tablet,extended release 24 hr olanzapine 10 mg tablet 10 mg PO DIRECTED PRN DAYS 06/21/25 06/21/25 History 1,2,3,4 OF CHEMO ondansetron HCl 8 mg tablet 8 mg PO Q8H PRN NAUSEA/VOMITING 06/21/25 06/21/25 History doxycycline hyclate 100 mg capsule 100 mg PO BID 7 days #14 caps 06/23/25 Rx magnesium oxide 400 mg (241.3 mg 400 mg PO BID 5 days #10 tabs 06/23/25 Rx magnesium) tablet oxycodone 5 mg tablet 5 mg PO Q4H PRN pain #10 tabs 06/23/25 Rx potassium chloride 20 mEq 20 meq PO BID 5 days #10 tabs 06/23/25 Rx tablet,extended release(part/cryst) Hospital Stay Data Consultations 06/21/25 20:50 ED Decision to Admit Stat Diagnostic Imagining Performed 06/21/25 23:00 CT foot RT w con Stat Reviewed imaging, laboratory and diagnostic studies. Pertinent findings as below. CTA of the right foot and ankle showed edema consistent with cellulitis but no evidence of soft tissue gas or abscess WBCs 1.8, slightly improved Hemoglobin 8.1 stable posttransfusion Platelets of 48, at baseline Sodium 146 Potassium 3.4 and repleted Creatinine 1.1 Pending Results Patient Have Any Pending Studies at Discharge: No Discharge Instructions Given to Patient (Per Discharging Provider) Follow-up with your oncologist as scheduled Follow-up with your PCP Complete course of antibiotics Total Time Total Time Spent Total Time Spent (In Minutes): 33
--- NOTE | 2025-06-23 12:22 | Electrocardiogram Report ---
Test Reason : Blood Pressure : */* mmHG Vent. Rate : 74 BPM Atrial Rate : 74 BPM P-R Int : 140 ms QRS Dur : 92 ms QT Int : 420 ms P-R-T Axes : 84 58 43 degrees QTcB Int : 466 ms Sinus rhythm with marked sinus arrhythmia with Premature ventricular complexes Otherwise normal ECG When compared with ECG of 18-May-2025 03:51, No significant change was found Confirmed by Kourtney Looney (Jessica) on 06/23/2025 12:22:26 PM Referred By: REFERRED SELF Confirmed By: Kourtney Looney
[2025-06-23 12:32] VITALS: PULSE 60
[2025-06-23] MEDS: HEPARIN 100 UNIT/ML 5ML FLUSH FLUSH STA (13:30)
== END 2025-06-23 13:51 | disposition home or self-care (01) | DRG 204 ==
LOC: ED 18:55 → 4W 22:31

== ENCOUNTER 2025-06-26 11:28 | Inpatient (IN) ==
[2025-06-26 12:27] LABS: Hematocrit (blood only) 28.6 % (42.0-52.0); Hemoglobin 9.1 g/dl (14.0-18.0); Mean Corpuscular Hemoglobin 35.0 pg (25.0-34.0); Mean Corpuscular Volume 110.0 fL (80.0-100.0); Platelet Count 55 K/uL (130-400); RDW Standard Deviation 72.4 fL (36.4-46.3); Red Blood Count 2.60 M/uL (4.70-6.10); White Blood Count 3.88 K/ul (4.8-10.8)
[2025-06-26 12:41] LABS: Alanine Aminotransferase 64.0 U/L (7-52); Albumin Globulin Ratio 1.0 (0.9-2); Albumin Level 3.2 gm/dl (3.4-5.0); Alkaline Phosphatase 84.0 U/L (34-104); Anion Gap 8.0 (3-11); Bilirubin,Total 0.8 mg/dl (0.2-1.0); Blood Urea Nitrogen 11.0 mg/dl (6-23); Calcium 8.5 mg/dl (8.6-10.3); Carbon Dioxide 23.0 mmol/L (21-32); Chloride 114.0 mmol/L (98-107); Creatinine Clr Calc Pharmacy 54.2 ml/min; Globulin 3.1 gm/dl (2.5-4.0); Glucose 124.0 mg/dl (70-99(Fasting)); Potassium 4.2 mmol/L (3.5-5.1); Sodium 145.0 mmol/L (136-145); Total Protein 6.3 gm/dl (6.0-8.3)
[2025-06-26 12:51] LABS: Acanthocytes 1+; Immature Granulocytes # (auto) 0.02 K/uL (0.01-0.20); Immature Granulocytes % (auto) 0.5 %
--- NOTE | 2025-06-26 13:34 | Emergency Department Note ---
Impression & Plan Cellulitis of leg, right ED Provider Note NAME: BEULAH LEOS AGE: 79 SEX: M : 1945 ARRIVES VIA: Walk-In INFORMANT: Patient, ED PROVIDER(S): Jf Carney MD CHIEF COMPLAINT: Right foot infection HPI: This is a 79-year-old male presenting for concerns of right foot infection. Patient was seen by his PCP today after discharge on Tuesday. Advised to come back to the ER for worsening infection. Patient states that he was seen here on Tuesday admitted for 2 nights. He had IV antibiotics which improve his symptoms. Upon discharge home with oral antibiotics, he noted persistent symptoms. Notes that the redness has increased slightly from being discharged. Reports painful warm extremity still. ROS: See above HPI for pertinent positives & negatives. A total of 10 systems reviewed and were otherwise negative. PAST MEDICAL HISTORY: See Below PAST SURGICAL HISTORY: See Below FAMILY HISTORY: See Below SOCIAL HISTORY: See Below HOME MEDICATIONS: See Below ALLERGIES: See Below VITALS: See Below PHYSICAL EXAMINATION: General: resting comfortably in no acute distress Head: Normocephalic and atraumatic Eyes: Normal inspection, extraocular muscles intact Ear, nose, throat: Normal external exam Neck: Normal range of motion Respiratory: lungs clear to auscultation bilaterally Cardiovascular: Regular rate/rhythm, no murmur GI: soft, nontender, no guarding or rebound Extremities: moves all extremities, erythematous, warm below knee into the foot Neuro: The patient awake and alert, appropriately conversive, no focal deficits, symmetric faces Skin: Warm, dry, and intact MEDICAL DECISION MAKING: This is a 79-year-old male presented for right foot infection. Symptoms have not improved in the outpatient setting for patient. Advised come back by PCP. - Blood work reveals improving leukopenia at 3.88. Improving anemia to 9.1. Electrodes within normal limits. Transaminitis is noted -Patient on ceftriaxone for cellulitis - Will admit the patient to inpatient team Differential diagnosis: Cellulitis, abscess, rash, Diagnostics interpreted by me: ECG: None Cardiac Monitoring: An order was placed for continuous cardiac monitoring. The monitor shows a rate of 52 with sinus rhythm. Past Med/Surg History Problem List (Updated 06/26/25 @ 18:18 by Jf Carney MD) Cellulitis of leg, right (Acute) Cellulitis and abscess of foot (Acute) Shortness of breath (Acute) Anemia (Acute) Drug-induced liver injury Symptomatic anemia SOB (shortness of breath) Estrella's cyst of knee (Acute) Pancytopenia (Acute) History of lung cancer (Acute) Cellulitis of right leg (Acute) Chronic anemia (Acute) Pancytopenia due to chemotherapy Metastatic cancer Sofie-Mueller tear Acute on chronic blood loss anemia UGIB (upper gastrointestinal bleed) History of lung cancer (Acute) Thrombocytopenia (Acute) Anemia (Acute) Vomiting of blood (Acute) Acute bronchitis (Acute) Closed head injury (Acute) Concussion (Acute) Concussion (Acute) Occipital scalp laceration (Acute) Stented coronary artery Upper respiratory infection (Acute) Work related injury (Acute) Renal colic (Acute) Bilateral ureteral calculi (Acute) Hydronephrosis (Acute) Acute UTI (Acute) Leukocytosis (Acute) Melanoma Mohs x2 ANDRES (acute kidney injury) Encounter for pre-operative examination Left ureteral calculus Benign prostatic hyperplasia (BPH) with straining on urination Encounter for pre-operative examination Encounter for pre-operative examination Nephrolithiasis Pneumonia (Acute) Hypoxic (Acute) Hypomagnesemia (Acute) Acute hypoxemic respiratory failure HTN (hypertension) Paroxysmal atrial fibrillation 2010 had episode after back surgery and no problems since. Zio monitoring in Jun 2019 showed no evidence of recurrent atrial fibrillation follow with Dr. Carrlol/ Laura Bladder cancer dx'd 2007. 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 Surgical History History of urologic surgery History of cancer surgery bladder History of cystoscopy History of tooth extraction History of lithotripsy recent--08/21/21 @ [place] History of cardiac cath 2017 > 1 STENT > [facility] Hx of colonoscopy History of lumbar spinal fusion 2010 1968 Family History Father Diabetes Grandmother (Paternal) Diabetes Other Cancer Coronary heart disease Hypertension No family history of adverse response to anesthesia Social History Smoking Status: Current every day smoker Tobacco Type: Cigarettes Cigarettes Per Day: 4; Second Hand Exposure: Yes; Do You Dip or Chew Tobacco: No; Tobacco Cessation Education Requested by Patient: No Hx Alcohol Use: No Hx Substance Use: No Preferred Language: Tongan Communication Ability: Effective Ship'S Captain Required: No Beliefs That Will Affect Care: None marital status: Current Living Situation: Spouse Other Information That Helps Us Care for You: No Feels Safe at Home: Yes Safety Concerns: Feels Safe At This Time Assistive Devices: Denture - Upper, Denture - Lower, Glasses and Walker Allergies Allergies Allergy/AdvReac Type Severity Reaction Status Date / Time bee venom protein (honey bee) Allergy Severe ANAPHYLAXIS Verified 06/21/25 20:53 cephalexin [From Keflex] Allergy Unknown CAN'T Verified 06/21/25 20:53 MD CHIDI ADDED TO LIST Home Meds Home Medications Medication Instructions Recorded Confirmed atorvastatin 80 mg tablet 80 mg PO DAILY 04/22/20 06/26/25 cholecalciferol (vitamin D3) 25 1,000 unit PO QAM 04/22/20 06/26/25 mcg (1,000 unit) capsule (Vitamin D3) epinephrine 0.3 mg/0.3 mL 0.3 mg IM DIRECTED PRN Allergic 04/22/20 06/26/25 injection, auto-injector Reaction metformin 500 mg tablet 500 mg PO BIDM 04/22/20 06/26/25 nitroglycerin 0.4 mg sublingual 0.4 mg sublingual DIRECTED PRN 04/22/20 06/26/25 tablet (Nitrostat) Chest Pain tamsulosin 0.4 mg capsule 0.4 mg PO QAM 04/22/20 06/26/25 isosorbide mononitrate 30 mg 30 mg PO QAM 02/03/23 06/26/25 tablet,extended release 24 hr lisinopril 2.5 mg tablet 2.5 mg PO DAILY 02/03/23 06/26/25 albuterol sulfate 90 mcg/actuation 2 inh inhalation Q4H PRN shortness 05/18/25 06/26/25 aerosol inhaler of breath or wheezing budesonide 160 mcg-glycopyr 9 2 inh inhalation BID 05/18/25 06/26/25 mcg-formot 4.8 mcg/actuation HFA inhaler (Breztri Aerosphere) folic acid 1 mg tablet 1 mg PO DAILY 05/18/25 06/26/25 prochlorperazine maleate 10 mg 10 mg PO Q6H PRN Nausea And 05/18/25 06/26/25 tablet Vomiting trazodone 50 mg tablet 50 mg PO HS 05/18/25 06/26/25 B-complex with vitamin C 1 cap PO DAILY 06/21/25 06/26/25 aspirin 81 mg tablet,delayed 81 mg PO DAILY 06/21/25 06/26/25 release dexamethasone 4 mg tablet 8 mg PO DIRECTED PRN DAYS 2,3,4 06/21/25 06/26/25 OF CHEMO lidocaine-prilocaine 2.5 %-2.5 % 1 applic topical DIRECTED PRN 06/21/25 06/26/25 topical cream ACCESSING MEDIPORT loperamide 1 mg/7.5 mL oral liquid 0.5 mg PO DAILY PRN Diarrhea 06/21/25 06/26/25 (Imodium A-D) loratadine 10 mg tablet (Claritin) 10 mg PO DAILY PRN START DAY OF 06/21/25 06/26/25 CHEMO X 5 DAYS. metoprolol succinate 50 mg 50 mg PO BID 06/21/25 06/26/25 tablet,extended release 24 hr ondansetron HCl 8 mg tablet 8 mg PO Q8H PRN NAUSEA/VOMITING 06/21/25 06/26/25 Previous Rx's Medication Instructions Recorded pantoprazole 40 mg tablet,delayed 40 mg PO BID #60 tabs 05/21/25 release doxycycline hyclate 100 mg capsule 100 mg PO BID 7 days #14 caps 06/23/25 magnesium oxide 400 mg (241.3 mg 400 mg PO BID 5 days #10 tabs 06/23/25 magnesium) tablet oxycodone 5 mg tablet 5 mg PO Q4H PRN pain #10 tabs 06/23/25 potassium chloride 20 mEq 20 meq PO BID 5 days #10 tabs 06/23/25 tablet,extended release(part/cryst) Results & Data (ED) Vital Signs Vital Signs - 24 hr 06/26/25 11:42 06/26/25 12:48 06/26/25 13:07 Temperature 36.6 C Temperature Source Oral Pulse Rate 78 60 Pulse Rate [Right Finger] 58 L Respiratory Rate 18 16 Respiratory Effort / Characteristics Non-Labored Spontaneous Non-Labored Respiratory Depth Normal Normal Respiratory Pattern Regular Blood Pressure 121/65 Blood Pressure [Right Arm] 147/66 H Blood Pressure Mean 83 Blood Pressure Mean [Right Arm] 93 Pulse Oximetry 98 99 Oxygen Delivery Method Room Air Sepsis Recent Fever Within 48 Hours No Sepsis New/Unexplained Change in Mental Status N/A Sepsis Action Taken by Nursing No Action Required 06/26/25 14:00 Temperature Temperature Source Pulse Rate Pulse Rate [Right Finger] 60 Respiratory Rate 16 Respiratory Effort / Characteristics Respiratory Depth Respiratory Pattern Blood Pressure Blood Pressure [Right Arm] 142/67 H Blood Pressure Mean Blood Pressure Mean [Right Arm] 92 Pulse Oximetry 98 Oxygen Delivery Method Sepsis Recent Fever Within 48 Hours Sepsis New/Unexplained Change in Mental Status Sepsis Action Taken by Nursing Laboratory Data 06/26/25 12:03 06/26/25 12:03 Lab Results 06/26/25 Range/Units 12:03 WBC 3.88 L (4.8-10.8) K/ul RBC 2.60 L (4.70-6.10) M/uL Hgb 9.1 L (14.0-18.0) g/dl Hct 28.6 L (42.0-52.0) % MCV 110.0 H (80.0-100.0) fL MCH 35.0 H (25.0-34.0) pg MCHC 31.8 L (32.0-36.0) g/dL RDW Std Deviation 72.4 H (36.4-46.3) fL RDW Coeff of Ele 18.0 H (11.5-14.5) % Plt Count 55 L (130-400) K/uL MPV 13.0 H (9.4-12.4) fL Immature Gran % (Auto) 0.5 % Neut % (Auto) 55.5 % Lymph % (Auto) 34.3 % [place] % (Auto) 8.2 % Eos % (Auto) 1.5 % Baso % (Auto) 0.0 % Neut # (Auto) 2.15 (1.40-6.50) K/uL Lymph # (Auto) 1.33 (1.20-3.40) K/uL [place] # (Auto) 0.32 (0.11-0.59) K/uL Eos # (Auto) 0.06 (0.00-0.50) K/uL Baso # (Auto) 0.00 (0.00-0.20) K/uL Immature Gran # (Auto) 0.02 (0.01-0.20) K/uL Acanthocytes (Spur) 1+ Sodium 145 (136-145) mmol/L Potassium 4.2 (3.5-5.1) mmol/L Chloride 114 H (98-107) mmol/L Carbon Dioxide 23 (21-32) mmol/L Anion Gap 8 (3-11) BUN 11 (6-23) mg/dl Creatinine 1.05 (0.6-1.4) mg/dl Est Cr Clr Drug Dosing 54.2 ml/min eGFR 72.66 BUN/Creatinine Ratio 10.5 (10-20) Glucose 124 H (70-99(Fasting)) mg/dl Calcium 8.5 L (8.6-10.3) mg/dl Total Bilirubin 0.8 (0.2-1.0) mg/dl AST 63 H (13-39) U/L ALT 64 H (7-52) U/L Alkaline Phosphatase 84 (34-104) U/L Total Protein 6.3 (6.0-8.3) gm/dl Albumin 3.2 L (3.4-5.0) gm/dl Globulin 3.1 (2.5-4.0) gm/dl Albumin/Globulin Ratio 1.0 (0.9-2) Administered Medications Discontinued Medications Ceftriaxone Sodium (Rocephin) 2,000 mg in 50 mls @ 100 mls/hr IV NOW STA Stop: 06/26/25 14:04 Last Infusion: 06/26/25 15:08 Dose: Infused Documented By: Admin: 06/26/25 14:14 Dose: 100 mls/hr Documented By: ELIZABETH Discharge Plan Visit Data Chief Complaint: Foot Injury/Pain Stated Complaint: R FOOT INFECTION ED Provider: Jf Carney Discharge Problem: Cellulitis of leg, right Patient Disposition: Admitted As Inpatient Condition: Fair Discharge Instructions Interventions: ED Discharge Assessment Last Done: 06/26/25 16:19
[2025-06-26] MEDS: cefTRIAXone SODIUM 2,000 MG/50 ML BAG IV STA (14:14)
--- NOTE | 2025-06-26 14:43 | History & Physical Report ---
Date of Service June 26, 2025 Assessment & Plan (1) Cellulitis of right leg: (2) Pancytopenia: (3) Pancytopenia due to chemotherapy: (4) PAD (peripheral artery disease): (5) Myocardial Infarction: (6) History of lung cancer: (7) Paroxysmal atrial fibrillation: (8) CAD (coronary artery disease): (9) COPD (chronic obstructive pulmonary disease): (10) Diabetes mellitus, type II: Plan 79-year-old man with history of chronic diastolic heart failure, CAD status post stents, paroxysmal A-fib not on anticoagulation per patient preference, valvular heart disease, PVD, hypertension, hyperlipidemia, diabetes on oral meds, COPD, metastatic cancer of unknown primary on chemotherapy, bladder cancer cervical surgery, skin cancer, Sofie-Mueller tear, BPH, recurrent UTI, chronic pancytopenia, ongoing smoker who was recently hospitalized from 06/21-06/23 for leg cellulitis who presents again today for worsening right leg infection Patient stable for WBC 3.88, hemoglobin of 9.1, MCV of 110, platelet of 2, AST of 63, ALT of 64 Got IV ceftriaxone in ER Continue IV ceftriaxone and doxycycline for now. Reviewed imaging from 06/21/2025. CT foot showed diffuse subcutaneous edema no soft tissue gas or abscess. Get MRSA screen Patient still pancytopenic. Hemoglobin is 9.1 (improved from 8.1 on 06/23/2025]. WBCs 3.3. Improved from 1.82 on 06/23/2025. Monitor hemoglobin and transfuse as needed to keep above 7 Continue folate and B complex For intermittent diarrhea, will get C diff testing Monitor BM and electrolytes HbA1c was 6 in 02/11/25 per EPIC Carb controlled diet for now Hold home metformin Will monitor BG and do ISS Reports he does not eat much due to anorexia. This he stated is chronic. Will get cutting tool sharpener input Counseled regarding smoking cessation Continue Aspirin, atorvastatin Continue ENTRY OPERATOR imdur, lisinopril and toprol XL DVT ppx - lovenox Code status - Full Code I spent a total of 75 minutes coordinating, documenting and providing care for this patient excluding time spent in performance of separately billed services History of Present Illness Chief Complaint: Worsening right leg infection Primary Care Provider: Loretta Treviño MD 79-year-old man with history of chronic diastolic heart failure, CAD status post stents, paroxysmal A-fib not on anticoagulation per patient preference, valvular heart disease, PVD, hypertension, hyperlipidemia, diabetes on oral meds, COPD, metastatic cancer of unknown primary on chemotherapy, bladder cancer cervical surgery, skin cancer, Sofie-Mueller tear, BPH, recurrent UTI, chronic pancytopenia, ongoing smoker who was recently hospitalized from 06/21-06/23 for leg cellulitis who presents again today for worsening right leg infection Patient was treated and discharged on doxycycline which he stated he has been taking States that the redness and pain persisted. He was seen by his PCP in the office today and sent in for worsening right leg infection. Denied fever or chills. Reports chronic cough, chronic intermittent diarrhea. Denies nausea, vomiting, chest pain, Denies dysuria or frequency Last chemotherapy was about 2 weeks ago. Patient still smokes about 4 to 5 cigarettes/day. Denies alcohol or illicit drug use. Allergies Allergy/AdvReac Type Severity Reaction Status Date / Time bee venom protein (honey bee) Allergy Severe ANAPHYLAXIS Verified 06/21/25 20:53 cephalexin [From Keflex] Allergy Unknown CAN'T Verified 06/21/25 20:53 MD CHIDI ADDED TO LIST Home Medications Medication Instructions Recorded Confirmed Type atorvastatin 80 mg tablet 80 mg PO DAILY 04/22/20 06/26/25 History cholecalciferol (vitamin D3) 25 1,000 unit PO QAM 04/22/20 06/26/25 History mcg (1,000 unit) capsule (Vitamin D3) epinephrine 0.3 mg/0.3 mL 0.3 mg IM DIRECTED PRN Allergic 04/22/20 06/26/25 History injection, auto-injector Reaction metformin 500 mg tablet 500 mg PO BIDM 04/22/20 06/26/25 History nitroglycerin 0.4 mg sublingual 0.4 mg sublingual DIRECTED PRN 04/22/20 06/26/25 History tablet (Nitrostat) Chest Pain tamsulosin 0.4 mg capsule 0.4 mg PO QAM 04/22/20 06/26/25 History isosorbide mononitrate 30 mg 30 mg PO QAM 02/03/23 06/26/25 History tablet,extended release 24 hr lisinopril 2.5 mg tablet 2.5 mg PO DAILY 02/03/23 06/26/25 History albuterol sulfate 90 mcg/actuation 2 inh inhalation Q4H PRN shortness 05/18/25 06/26/25 History aerosol inhaler of breath or wheezing budesonide 160 mcg-glycopyr 9 2 inh inhalation BID 05/18/25 06/26/25 History mcg-formot 4.8 mcg/actuation HFA inhaler (Breztri Aerosphere) folic acid 1 mg tablet 1 mg PO DAILY 05/18/25 06/26/25 History prochlorperazine maleate 10 mg 10 mg PO Q6H PRN Nausea And 05/18/25 06/26/25 History tablet Vomiting trazodone 50 mg tablet 50 mg PO HS 05/18/25 06/26/25 History pantoprazole 40 mg tablet,delayed 40 mg PO BID #60 tabs 05/21/25 06/26/25 Rx release B-complex with vitamin C 1 cap PO DAILY 06/21/25 06/26/25 History aspirin 81 mg tablet,delayed 81 mg PO DAILY 06/21/25 06/26/25 History release dexamethasone 4 mg tablet 8 mg PO DIRECTED PRN DAYS 2,3,4 06/21/25 06/26/25 History OF CHEMO lidocaine-prilocaine 2.5 %-2.5 % 1 applic topical DIRECTED PRN 06/21/25 06/26/25 History topical cream [facility] loperamide 1 mg/7.5 mL oral liquid 0.5 mg PO DAILY PRN Diarrhea 06/21/25 06/26/25 History (Imodium A-D) loratadine 10 mg tablet (Claritin) 10 mg PO DAILY PRN START DAY OF 06/21/25 06/26/25 History CHEMO X 5 DAYS. metoprolol succinate 50 mg 50 mg PO BID 06/21/25 06/26/25 History tablet,extended release 24 hr ondansetron HCl 8 mg tablet 8 mg PO Q8H PRN NAUSEA/VOMITING 06/21/25 06/26/25 History doxycycline hyclate 100 mg capsule 100 mg PO BID 7 days #14 caps 06/23/25 06/26/25 Rx magnesium oxide 400 mg (241.3 mg 400 mg PO BID 5 days #10 tabs 06/23/25 06/26/25 Rx magnesium) tablet oxycodone 5 mg tablet 5 mg PO Q4H PRN pain #10 tabs 06/23/25 06/26/25 Rx potassium chloride 20 mEq 20 meq PO BID 5 days #10 tabs 06/23/25 06/26/25 Rx tablet,extended release(part/cryst) Past Med/Surg History Problem List (Updated 06/26/25 @ 18:18 by Jf Carney MD) Cellulitis of leg, right (Acute) Cellulitis and abscess of foot (Acute) Shortness of breath (Acute) Anemia (Acute) Drug-induced liver injury Symptomatic anemia SOB (shortness of breath) Estrella's cyst of knee (Acute) Pancytopenia (Acute) History of lung cancer (Acute) Cellulitis of right leg (Acute) Chronic anemia (Acute) Pancytopenia due to chemotherapy Metastatic cancer Sofie-Mueller tear Acute on chronic blood loss anemia UGIB (upper gastrointestinal bleed) History of lung cancer (Acute) Thrombocytopenia (Acute) Anemia (Acute) Vomiting of blood (Acute) Acute bronchitis (Acute) Closed head injury (Acute) Concussion (Acute) Concussion (Acute) Occipital scalp laceration (Acute) Stented coronary artery Upper respiratory infection (Acute) Work related injury (Acute) Renal colic (Acute) Bilateral ureteral calculi (Acute) Hydronephrosis (Acute) Acute UTI (Acute) Leukocytosis (Acute) Melanoma Mohs x2 ANDRES (acute kidney injury) Encounter for pre-operative examination Left ureteral calculus Benign prostatic hyperplasia (BPH) with straining on urination Encounter for pre-operative examination Encounter for pre-operative examination Nephrolithiasis Pneumonia (Acute) Hypoxic (Acute) Hypomagnesemia (Acute) Acute hypoxemic respiratory failure HTN (hypertension) Paroxysmal atrial fibrillation 2010 had episode after back surgery and no problems since. Zio monitoring in Jun 2019 showed no evidence of recurrent atrial fibrillation follow with Dr. Carroll/ [facility] Bladder cancer dx'd 2007. BCG treatment + surgery CAD (coronary artery disease) Follows with Laura S/p DULCE to ramus that had collaterals to the right on 06/2017 COPD (chronic obstructive pulmonary disease) Diabetes mellitus, type II NIDDM Medical History PAD (peripheral artery disease) Mild bilateral ICA disease (per 2019 carotid duplex) Arterial doppler of LE showed mild PAD on right side (April 2021) History of Mohs micrographic surgery for skin cancer History of gout History of melanoma Hyperlipidemia BPH (benign prostatic hyperplasia) Myocardial Infarction 1996 > anterior wall NV Kidney stone 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 Surgical History History of urologic surgery History of cancer surgery bladder History of cystoscopy History of tooth extraction History of lithotripsy recent--08/21/21 @ [place] History of cardiac cath 2017 > 1 STENT > [facility] Hx of colonoscopy History of lumbar spinal fusion 2010 1968 Family History Father Diabetes Grandmother (Paternal) Diabetes Other Cancer Coronary heart disease Hypertension No family history of adverse response to anesthesia Social History Smoking Status: Current every day smoker Tobacco Type: Cigarettes Cigarettes Per Day: 4; Second Hand Exposure: Yes; Do You Dip or Chew Tobacco: No; Tobacco Cessation Education Requested by Patient: No Hx Alcohol Use: No Hx Substance Use: No Preferred Language: Serbian Communication Ability: Effective Vacuum Truck Driver Required: No Beliefs That Will Affect Care: None marital status: Current Living Situation: Spouse Other Information That Helps Us Care for You: No Feels Safe at Home: Yes Safety Concerns: Feels Safe At This Time Assistive Devices: Denture - Upper, Denture - Lower, Glasses and Walker Review of Systems Review of Systems: All systems reviewed & are unremarkable except as noted in HPI & below Physical Exam Constitutional: + well hydrated; no acute distress Eyes: PERRL, conjunctivae normal, anicteric sclerae ENMT: external ear and nose normal, oropharynx normal Respiratory: Not in respiratory distress, on room air, good air entry, few crackles Cardiovascular: Rate/Rhythm: regular rate and regular rhythm Gastrointestinal (Abdomen): normal bowel sounds, soft, nontender, no hepatosplenomegaly Musculoskeletal: Right leg erythema, tenderness and swelling up to upper third of leg (old marking patient stated was from ext ent of erythema on Tuesday) Neurologic: PERRL, EOMI, accommodation nl, no face palsy, no dysarthria Psychiatric: A+Ox3, euthymic affect Results & Data Results & Data Vital Signs (Past 12 Hours) Vital Signs Temp Pulse Pulse Resp BP BP Pulse Ox 06/26/25 14:00 60 16 142/67 H 98 06/26/25 13:07 60 06/26/25 12:48 58 L 16 147/66 H 99 06/26/25 11:42 36.6 C 78 18 121/65 98 O2 Del Method 06/26/25 14:00 06/26/25 13:07 06/26/25 12:48 06/26/25 11:42 Room Air Laboratory Results Abnormal lab results 06/26/25 Range/Units 12:03 WBC 3.88 L (4.8-10.8) K/ul RBC 2.60 L (4.70-6.10) M/uL Hgb 9.1 L (14.0-18.0) g/dl Hct 28.6 L (42.0-52.0) % MCV 110.0 H (80.0-100.0) fL MCH 35.0 H (25.0-34.0) pg MCHC 31.8 L (32.0-36.0) g/dL RDW Std Deviation 72.4 H (36.4-46.3) fL RDW Coeff of Ele 18.0 H (11.5-14.5) % Plt Count 55 L (130-400) K/uL MPV 13.0 H (9.4-12.4) fL Chloride 114 H (98-107) mmol/L Glucose 124 H (70-99(Fasting)) mg/dl Calcium 8.5 L (8.6-10.3) mg/dl AST 63 H (13-39) U/L ALT 64 H (7-52) U/L Albumin 3.2 L (3.4-5.0) gm/dl
[2025-06-26] MEDS ORDERED: ALBUTEROL HFA 8 GM INHALER INH PRN (16:40)
[2025-06-26] MEDS ORDERED: ONDANSETRON 4 MG OD TAB PO PRN (16:48)
[2025-06-26] MEDS: ENOXAPARIN INJ 40 MG/0.4 ML SYR SQ SCH (18:26)
[2025-06-26] MEDS ORDERED: DEXTROSE 50% 50 ML SYRINGE IV PRN (19:45)
[2025-06-26] MEDS ORDERED: GLUCAGON FOR INJ 1 MG VIAL SQ PRN (19:45)
[2025-06-26] MEDS ORDERED: GLUCOSE 10 TAB/TUBE PO PRN (19:45)
[2025-06-26] MEDS ORDERED: GLUCOSE 40% GEL 15 GM TUBE PO PRN (19:45)
[2025-06-26] MEDS ORDERED: CARBOHYDRATES FOR HYPOGLYCEMIA PO PRN (19:45)
[2025-06-26] MEDS: DOXYCYCLINE HYCLATE 100 MG CAP PO SCH (20:42)
[2025-06-26] MEDS: INSULIN ASPART PER UNIT CHARGE SC SCH (20:42)
[2025-06-26] MEDS: METOPROLOL SUCC 50MG EXT REL TAB PO SCH (20:43)
[2025-06-26] MEDS: MAGNESIUM OXIDE 400 MG TAB PO SCH (20:43)
[2025-06-26] MEDS: POTASSIUM CHLORIDE CRTAB 20 MEQ TABCR PO SCH (20:44)
[2025-06-26] MEDS ORDERED: NON-FORMULARY MEDICATION (Budesonide-Glycopyr-Formoterol [Breztri Aerosphere] 160-9-4.8 mc INH SCH (21:00)
[2025-06-27 06:38] LABS: Hematocrit (blood only) 24.7 % (42.0-52.0); Hemoglobin 7.8 g/dl (14.0-18.0); Mean Corpuscular Hemoglobin 34.7 pg (25.0-34.0); Mean Corpuscular Volume 109.8 fL (80.0-100.0); Platelet Count 44 K/uL (130-400); RDW Standard Deviation 70.4 fL (36.4-46.3); Red Blood Count 2.25 M/uL (4.70-6.10); White Blood Count 3.61 K/ul (4.8-10.8)
[2025-06-27 07:19] LABS: Alanine Aminotransferase 52.0 U/L (7-52); Albumin Globulin Ratio 1.0 (0.9-2); Albumin Level 2.7 gm/dl (3.4-5.0); Alkaline Phosphatase 74.0 U/L (34-104); Anion Gap 5.0 (3-11); Bilirubin,Total 0.6 mg/dl (0.2-1.0); Blood Urea Nitrogen 12.0 mg/dl (6-23); Calcium 8.3 mg/dl (8.6-10.3); Carbon Dioxide 25.0 mmol/L (21-32); Chloride 117.0 mmol/L (98-107); Creatinine Clr Calc Pharmacy 50.4 ml/min; Globulin 2.7 gm/dl (2.5-4.0); Glucose 84.0 mg/dl (70-99(Fasting)); Potassium 4.5 mmol/L (3.5-5.1); Sodium 147.0 mmol/L (136-145); Total Protein 5.4 gm/dl (6.0-8.3)
[2025-06-27] MEDS: ISOSORBIDE MONO EXTENDED REL 30 MG TABCR PO SCH (08:22)
[2025-06-27] MEDS: FOLIC ACID 1 MG TAB PO SCH (08:22)
[2025-06-27] MEDS: VITAMIN B COMPLEX TAB PO SCH (08:22)
[2025-06-27] MEDS: ATORVASTATIN 40 MG TAB PO SCH (08:22)
[2025-06-27] MEDS: TAMSULOSIN HCL 0.4 MG CAP PO SCH (08:22)
[2025-06-27] MEDS: CHOLECALCIFEROL 25 MCG (1000 UNITS) TAB PO SCH (08:22)
[2025-06-27] MEDS: UMECLIDINIUM/VILANTEROL 62.5/25MCG 7 PUFFS/INHALER INH SCH (08:23)
[2025-06-27] MEDS: FLUTICASONE FUROATE 200MCG 14 PUFFS/INHALER INH SCH (08:23)
[2025-06-27] MEDS: ASPIRIN 81 MG ECTAB PO SCH (08:23)
--- NOTE | 2025-06-27 14:34 | Hospitalist Progress Note ---
Date of Service June 27, 2025 Assessment & Plan (1) Cellulitis of right leg: (2) Pancytopenia: (3) Pancytopenia due to chemotherapy: (4) PAD (peripheral artery disease): (5) Myocardial Infarction: (6) History of lung cancer: (7) Paroxysmal atrial fibrillation: (8) CAD (coronary artery disease): (9) COPD (chronic obstructive pulmonary disease): (10) Diabetes mellitus, type II: Plan Per admitting provider w/ addendum: 79-year-old man with history of chronic diastolic heart failure, CAD status post stents, paroxysmal A-fib not on anticoagulation per patient preference, valvular heart disease, PVD, hypertension, hyperlipidemia, diabetes on oral meds, COPD, metastatic cancer of unknown primary on chemotherapy, bladder cancer cervical surgery, skin cancer, Sofie-Mueller tear, BPH, recurrent UTI, chronic pancytopenia, ongoing smoker who was recently hospitalized from 06/21-06/23 for leg cellulitis who presents again today for worsening right leg infection Patient stable for WBC 3.88, hemoglobin of 9.1, MCV of 110, platelet of 2, AST of 63, ALT of 64 Got IV ceftriaxone in ER Continue IV ceftriaxone and doxycycline for now. Reviewed imaging from 06/21/2025. CT foot showed diffuse subcutaneous edema no soft tissue gas or abscess. MRSA screen negative 06/27 Pt says his right leg feels somewhat improved. Denies any other complaint. Patient still pancytopenic. Hemoglobin 9.1 on admission (8.1 on 06/23/2025]. WBCs 3.3. WBC 1.82 on 06/23/20 25. Monitor hemoglobin and transfuse as needed to keep above 7 Continue folate and B complex For intermittent diarrhea, will get C diff testing - uncollected Monitor BM and electrolytes HbA1c was 6 in 02/11/25 per EPIC Carb controlled diet for now Hold home metformin Will monitor BG and do ISS Reports he does not eat much due to anorexia. This he stated is chronic. Will get lunchroom aide input Counseled regarding smoking cessation Continue Aspirin, atorvastatin Continue HEDGE FUND MANAGER imdur, lisinopril and toprol XL DVT ppx - lovenox Code status - Full Code Admission and Anticipated Discharge Date Admission Date: June 26, 2025 Subjective Pt seen in follow up of cellulitis Currently lying in bed in [facility], reports that his leg feels somewhat better from yesterday Denies fever, chills, chest pain, shortness of breath, abd. pain, n/v Review of Systems Review of Systems: All systems reviewed & are unremarkable except as noted in Subjective Physical Exam Physical Exam: Constitutional: WD/WN elderly M in NAD Eyes: PERRL, conjunctiva e normal, anicteri c sclerae ENMT: external ear and n ose normal Respiratory: CTAB Cardiovascular: Rate/Rhythm: regul ar rate and regula r rhythm Gastrointestinal ( Abdomen): normal bowel sound s, soft, nontender Musculoskeletal: Right leg erythem a, tenderness and swelling up to upp er third of leg ( old marking patien t stated was from extent of erythema on Tuesday) Neurologic: PERRL, EOMI, no fa ce palsy, no dysar thria, moves extre mities Psychiatric: A+Ox3, euthymic af fect Results & Data Results & Data Vital Signs (Past 12 Hours) Vital Signs Temp Pulse Resp BP Pulse Ox O2 Del Method 06/27/25 07:41 36.4 C L 58 L 16 123/59 L 96 Room Air Laboratory Results 06/27/25 06/27/25 06/27/25 Range/Units 11:34 07:43 06:03 WBC 3.61 L (4.8-10.8) K/ul RBC 2.25 L (4.70-6.10) M/uL Hgb 7.8 L (14.0-18.0) g/dl Hct 24.7 L (42.0-52.0) % MCV 109.8 H (80.0-100.0) fL MCH 34.7 H (25.0-34.0) pg MCHC 31.6 L (32.0-36.0) g/dL RDW Std Deviation 70.4 H (36.4-46.3) fL RDW Coeff of Ele 17.8 H (11.5-14.5) % Plt Count 44 L (130-400) K/uL MPV 12.8 H (9.4-12.4) fL Sodium 147 H (136-145) mmol/L Potassium 4.5 (3.5-5.1) mmol/L Chloride 117 H (98-107) mmol/L Carbon Dioxide 25 (21-32) mmol/L Anion Gap 5 (3-11) BUN 12 (6-23) mg/dl Creatinine 1.13 (0.6-1.4) mg/dl Est Cr Clr Drug Dosing 50.4 ml/min eGFR 66.53 BUN/Creatinine Ratio 10.6 (10-20) Glucose 84 (70-99(Fasting)) mg/dl POC Glucose 97 89 (70-99) mg/dl Calcium 8.3 L (8.6-10.3) mg/dl Total Bilirubin 0.6 (0.2-1.0) mg/dl AST 52 H (13-39) U/L ALT 52 (7-52) U/L Alkaline Phosphatase 74 (34-104) U/L Total Protein 5.4 L (6.0-8.3) gm/dl Albumin 2.7 L (3.4-5.0) gm/dl Globulin 2.7 (2.5-4.0) gm/dl Albumin/Globulin Ratio 1.0 (0.9-2) Procalcitonin 0.11 (0-0.5) ng/ml Nasal Screen MRSA (PCR) (Negative) 06/27/25 06/26/25 06/26/25 Range/Units 00:10 20:41 17:10 WBC (4.8-10.8) K/ul RBC (4.70-6.10) M/uL Hgb (14.0-18.0) g/dl Hct (42.0-52.0) % MCV (80.0-100.0) fL MCH (25.0-34.0) pg MCHC (32.0-36.0) g/dL RDW Std Deviation (36.4-46.3) fL RDW Coeff of Ele (11.5-14.5) % Plt Count (130-400) K/uL MPV (9.4-12.4) fL Sodium (136-145) mmol/L Potassium (3.5-5.1) mmol/L Chloride (98-107) mmol/L Carbon Dioxide (21-32) mmol/L Anion Gap (3-11) BUN (6-23) mg/dl Creatinine (0.6-1.4) mg/dl Est Cr Clr Drug Dosing ml/min eGFR BUN/Creatinine Ratio (10-20) Glucose (70-99(Fasting)) mg/dl POC Glucose 94 85 (70-99) mg/dl Calcium (8.6-10.3) mg/dl Total Bilirubin (0.2-1.0) mg/dl AST (13-39) U/L ALT (7-52) U/L Alkaline Phosphatase (34-104) U/L Total Protein (6.0-8.3) gm/dl Albumin (3.4-5.0) gm/dl Globulin (2.5-4.0) gm/dl Albumin/Globulin Ratio (0.9-2) Procalcitonin (0-0.5) ng/ml Nasal Screen MRSA (PCR) Negative (Negative) Medications Administered Current Inpatient Medications Albuterol (Albuterol Hfa 8 Gm Inhaler) 2 puffs INH Q4H PRN PRN Reason: shortness of breath or wheezing Stop: 07/26/25 16:39 Aspirin (Aspirin 81 Mg Ectab) 81 mg PO DAILY CHANELLE Stop: 07/27/25 08:59 Last Admin: 06/27/25 08:23 Dose: 81 mg Atorvastatin Calcium (Atorvastatin 40 Mg Tab) 80 mg PO DAILY CHANELLE Stop: 07/27/25 08:59 Last Admin: 06/27/25 08:22 Dose: 80 mg Dextrose (Dextrose 50% 50 Ml Syringe) 25 - 50 ml IV UD PRN; Protocol PRN Reason: Hypoglycemia Protocol Stop: 07/26/25 19:44 Doxycycline Hyclate (Doxycycline Hyclate 100 Mg Cap) 100 mg PO BID CHANELLE Stop: 07/03/25 20:59 Last Admin: 06/27/25 08:22 Dose: 100 mg Enoxaparin Sodium (Enoxaparin Inj 40 Mg/0.4 Ml Syr) 40 mg SQ Q24H CHANELLE Stop: 07/26/25 16:59 Last Admin: 06/26/25 18:26 Dose: 40 mg Fluticasone Furoate (Fluticasone Furoate 200mcg 14 Puffs/Inhaler) 1 puffs INH DAILY CHANELLE; Protocol Stop: 07/27/25 08:59 Last Admin: 06/27/25 08:23 Dose: 1 puffs Folic Acid (Folic Acid 1 Mg Tab) 1 mg PO DAILY CHANELLE Stop: 07/27/25 08:59 Last Admin: 06/27/25 08:22 Dose: 1 mg Glucagon (Glucagon For Inj 1 Mg Vial) 1 mg SQ UD PRN; Protocol PRN Reason: Hypoglycemia Protocol Stop: 07/26/25 19:44 Glucose (Glucose 40% Gel 15 Gm Tube) 15 - 30 gm PO UD PRN; Protocol PRN Reason: Hypoglycemia Protocol Stop: 07/26/25 19:44 Glucose (Glucose 10 Tab/Tube) 4 - 8 tab PO UD PRN; Protocol PRN Reason: Hypoglycemia Protocol Stop: 07/26/25 19:44 Ceftriaxone Sodium (Rocephin) 1,000 mg in 50 mls @ 100 mls/hr IV Q24H CHANELLE Stop: 07/04/25 13:59 Insulin Aspart (Insulin Aspart Per Unit Charge) 0 units SC ACHS CHANELLE Stop: 07/26/25 20:59 Last Admin: 06/27/25 12:32 Dose: 6 units Isosorbide Mononitrate (Isosorbide Cowley Extended Rel 30 Mg Tabcr) 30 mg PO QAM CHANELLE Stop: 07/27/25 08:59 Last Admin: 06/27/25 08:22 Dose: 30 mg Lisinopril (Lisinopril 2.5 Mg Tab) 2.5 mg PO DAILY CHANELLE Stop: 07/27/25 08:59 Last Admin: 06/27/25 08:22 Dose: 2.5 mg Magnesium Oxide (Magnesium Oxide 400 Mg Tab) 400 mg PO BID CHANELLE Stop: 07/26/25 20:59 Last Admin: 06/27/25 08:22 Dose: 400 mg Metoprolol Succinate (Metoprolol Succ 50mg Ext Rel Tab) 50 mg PO BID CHANELLE Stop: 07/26/25 20:59 Last Admin: 06/27/25 08:23 Dose: Not Given Miscellaneous (Carbohydrates For Hypoglycemia ) 15 - 30 gm PO UD PRN PRN Reason: Hypoglycemia Protocol Stop: 07/26/25 19:44 Ondansetron HCl (Ondansetron 4 Mg Od Tab) 8 mg PO Q8H PRN PRN Reason: NAUSEA/VOMITING Stop: 07/26/25 16:47 Pantoprazole Sodium (Pantoprazole 40 Mg Tab) 40 mg PO BID CHANELLE Stop: 07/26/25 20:59 Last Admin: 06/27/25 08:23 Dose: 40 mg Potassium Chloride (Potassium Chloride Crtab 20 Meq Tabcr) 20 meq PO BID CHANELLE Stop: 07/26/25 20:59 Last Admin: 06/27/25 08:30 Dose: 20 meq Tamsulosin HCl (Tamsulosin Hcl 0.4 Mg Cap) 0.4 mg PO QAM CHANELLE Stop: 07/27/25 08:59 Last Admin: 06/27/25 08:22 Dose: 0.4 mg Trazodone HCl (Trazodone Hcl 50 Mg Tab) 50 mg PO HS CHANELLE Stop: 07/26/25 20:59 Last Admin: 06/26/25 20:45 Dose: 50 mg Umeclidinium/Vilanterol (Umeclidinium/Vilanterol 62.5/25mcg 7 Puffs/Inhaler) 1 puffs INH DAILY CHANELLE; Protocol Stop: 07/27/25 08:59 Last Admin: 06/27/25 08:23 Dose: 1 puffs Vitamin B Complex (Vitamin B Complex Tab) 1 tab PO DAILY CHANELLE Stop: 07/27/25 08:59 Last Admin: 06/27/25 08:22 Dose: 1 tab Vitamin D (Cholecalciferol 25 Mcg (1000 Units) Tab) 25 mcg PO QAM CHANELLE Stop: 07/27/25 08:59 Last Admin: 06/27/25 08:22 Dose: 25 mcg
[2025-06-27] MEDS: cefTRIAXone SODIUM 1,000 MG/50 ML BAG IV SCH (15:00)
[2025-06-27] MEDS: ADVANCED PROBIOTIC 625 MG CAPSULE PO SCH (15:54)
[2025-06-28 02:23] LABS: Cdiff Toxin B Gene (2yr or >) Negative Cdiff Gene (Neg)
[2025-06-28 06:17] LABS: Hematocrit (blood only) 24.3 % (42.0-52.0); Hemoglobin 7.8 g/dl (14.0-18.0); Mean Corpuscular Hemoglobin 35.0 pg (25.0-34.0); Mean Corpuscular Volume 109.0 fL (80.0-100.0); Platelet Count 61 K/uL (130-400); RDW Standard Deviation 69.0 fL (36.4-46.3); Red Blood Count 2.23 M/uL (4.70-6.10); White Blood Count 3.25 K/ul (4.8-10.8)
[2025-06-28 06:43] LABS: Alanine Aminotransferase 50.0 U/L (7-52); Albumin Globulin Ratio 1.1 (0.9-2); Albumin Level 2.7 gm/dl (3.4-5.0); Alkaline Phosphatase 72.0 U/L (34-104); Anion Gap 3.0 (3-11); Bilirubin,Total 0.6 mg/dl (0.2-1.0); Blood Urea Nitrogen 15.0 mg/dl (6-23); Calcium 8.4 mg/dl (8.6-10.3); Carbon Dioxide 27.0 mmol/L (21-32); Chloride 115.0 mmol/L (98-107); Creatinine Clr Calc Pharmacy 44.1 ml/min; Globulin 2.5 gm/dl (2.5-4.0); Glucose 86.0 mg/dl (70-99(Fasting)); Magnesium 1.6 mg/dl (1.7-2.4); Potassium 4.9 mmol/L (3.5-5.1); Sodium 145.0 mmol/L (136-145); Total Protein 5.2 gm/dl (6.0-8.3)
[2025-06-28] MEDS: MAGNESIUM SULFATE / D5W 1 GM/100 ML BAG IV ONE (09:29)
--- NOTE | 2025-06-28 12:22 | Hospitalist Progress Note ---
Date of Service June 28, 2025 Assessment & Plan (1) Cellulitis of right leg: (2) Pancytopenia: (3) Pancytopenia due to chemotherapy: (4) PAD (peripheral artery disease): (5) Myocardial Infarction: (6) History of lung cancer: (7) Paroxysmal atrial fibrillation: (8) CAD (coronary artery disease): (9) COPD (chronic obstructive pulmonary disease): (10) Diabetes mellitus, type II: Plan 79-year-old man with history of chronic diastolic heart failure, CAD status post stents, paroxysmal A-fib not on anticoagulation per patient preference, valvular heart disease, PVD, hypertension, hyperlipidemia, diabetes on oral meds, COPD, metastatic cancer of unknown primary on chemotherapy, bladder cancer cervical surgery, skin cancer, Soife-Mueller tear, BPH, recurrent UTI, chronic pancytopenia, ongoing smoker who was recently hospitalized from 06/21-06/23 for leg cellulitis who presents again today for worsening right leg infection Patient stable for WBC 3.88, hemoglobin of 9.1, MCV of 110, platelet of 2, AST of 63, ALT of 64 Got IV ceftriaxone in ER Continue IV ceftriaxone and doxycycline for now. Reviewed imaging from 06/21/2025. CT foot showed diffuse subcutaneous edema no soft tissue gas or abscess. MRSA screen negative 06/27 Pt says his right leg feels somewhat improved. Denies any other complaint. Patient still pancytopenic. Hemoglobin 9.1 on admission [8.1 on 06/23/2025]. WBCs 3.3. WBC 1.82 on 06/23/2025. Monitor hemoglobin and transfuse as needed to keep above 7 Continue folate and B complex For intermittent diarrhea, tested for C. diff and negative Monitor BM and electrolytes HbA1c was 6 in 02/11/25 per [facility] Carb controlled diet for now Hold home metformin Will monitor BG and do ISS Reports he does not eat much due to anorexia. This he stated is chronic. 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 pain, n/v Review of Systems Review of Systems: All systems reviewed & are unremarkable except as noted in Subjective Physical Exam Physical Exam: Constitutional: WD/WN elderly M in NAD Eyes: PERRL, conjunctiva e normal, anicteri c sclerae ENMT: external ear and n ose normal Respiratory: CTAB Cardiovascular: Rate/Rhythm: regul ar rate and regula r rhythm Gastrointestinal ( Abdomen): normal bowel sound s, soft, nontender Musculoskeletal: Right leg erythem a, tenderness and swelling up to upp er third of leg ( improved) Neurologic: PERRL, EOMI, no fa ce palsy, no dysar thria, moves extre mities Psychiatric: A+Ox3, euthymic af fect Results & Data Results & Data Vital Signs (Past 12 Hours) Vital Signs Temp Pulse Resp BP Pulse Ox O2 Del Method 06/28/25 07:11 36.6 C 50 L 16 133/70 96 Room Air Laboratory Results 06/28/25 06/28/25 06/28/25 Range/Units Unknown 11:09 07:09 WBC (4.8-10.8) K/ul RBC (4.70-6.10) M/uL Hgb (14.0-18.0) g/dl Hct (42.0-52.0) % MCV (80.0-100.0) fL MCH (25.0-34.0) pg MCHC (32.0-36.0) g/dL RDW Std Deviation (36.4-46.3) fL RDW Coeff of Ele (11.5-14.5) % Plt Count (130-400) K/uL MPV (9.4-12.4) fL Sodium (136-145) mmol/L Potassium (3.5-5.1) mmol/L Chloride (98-107) mmol/L Carbon Dioxide (21-32) mmol/L Anion Gap (3-11) BUN (6-23) mg/dl Creatinine (0.6-1.4) mg/dl Est Cr Clr Drug Dosing ml/min eGFR BUN/Creatinine Ratio (10-20) Glucose (70-99(Fasting)) mg/dl POC Glucose 146 H 87 (70-99) mg/dl Calcium (8.6-10.3) mg/dl Phosphorus (2.5-4.9) mg/dl Magnesium (1.7-2.4) mg/dl Total Bilirubin (0.2-1.0) mg/dl AST (13-39) U/L ALT (7-52) U/L Alkaline Phosphatase (34-104) U/L Total Protein (6.0-8.3) gm/dl Albumin (3.4-5.0) gm/dl Globulin (2.5-4.0) gm/dl Albumin/Globulin Ratio (0.9-2) Stl C. diff Tox B Gene Negative Cdiff Gene (Neg) Stl C. diff [id number] NEGATIVE 06/28/25 06/27/25 06/27/25 Range/Units 05:57 20:05 16:25 WBC 3.25 L (4.8-10.8) K/ul RBC 2.23 L (4.70-6.10) M/uL Hgb 7.8 L (14.0-18.0) g/dl Hct 24.3 L (42.0-52.0) % MCV 109.0 H (80.0-100.0) fL MCH 35.0 H (25.0-34.0) pg MCHC 32.1 (32.0-36.0) g/dL RDW Std Deviation 69.0 H (36.4-46.3) fL RDW Coeff of Ele 17.5 H (11.5-14.5) % Plt Count 61 L (130-400) K/uL MPV 12.6 H (9.4-12.4) fL Sodium 145 (136-145) mmol/L Potassium 4.9 (3.5-5.1) mmol/L Chloride 115 H (98-107) mmol/L Carbon Dioxide 27 (21-32) mmol/L Anion Gap 3 (3-11) BUN 15 (6-23) mg/dl Creatinine 1.29 (0.6-1.4) mg/dl Est Cr Clr Drug Dosing 44.1 ml/min eGFR 56.75 BUN/Creatinine Ratio 11.6 (10-20) Glucose 86 (70-99(Fasting)) mg/dl POC Glucose 104 H 73 (70-99) mg/dl Calcium 8.4 L (8.6-10.3) mg/dl Phosphorus 3.5 (2.5-4.9) mg/dl Magnesium 1.6 L (1.7-2.4) mg/dl Total Bilirubin 0.6 (0.2-1.0) mg/dl AST 52 H (13-39) U/L ALT 50 (7-52) U/L Alkaline Phosphatase 72 (34-104) U/L Total Protein 5.2 L (6.0-8.3) gm/dl Albumin 2.7 L (3.4-5.0) gm/dl Globulin 2.5 (2.5-4.0) gm/dl Albumin/Globulin Ratio 1.1 (0.9-2) Stl C. diff Tox B Gene (Neg) Stl C. diff [id number] Medications Administered Current Inpatient Medications Albuterol (Albuterol Hfa 8 Gm Inhaler) 2 puffs INH Q4H PRN PRN Reason: shortness of breath or wheezing Stop: 07/26/25 16:39 Aspirin (Aspirin 81 Mg Ectab) 81 mg PO DAILY [facility] Stop: 07/27/25 08:59 Last Admin: 06/28/25 09:14 Dose: 81 mg Atorvastatin Calcium (Atorvastatin 40 Mg Tab) 80 mg PO DAILY [facility] Stop: 07/27/25 08:59 Last Admin: 06/28/25 09:14 Dose: 80 mg Dextrose (Dextrose 50% 50 Ml Syringe) 25 - 50 ml IV UD PRN; Protocol PRN Reason: Hypoglycemia Protocol Stop: 07/26/25 19:44 Doxycycline Hyclate (Doxycycline Hyclate 100 Mg Cap) 100 mg PO BID [facility] Stop: 07/03/25 20:59 Last Admin: 06/28/25 09:14 Dose: 100 mg Enoxaparin Sodium (Enoxaparin Inj 40 Mg/0.4 Ml Syr) 40 mg SQ Q24H [facility] Stop: 07/26/25 16:59 Last Admin: 06/27/25 17:39 Dose: 40 mg Fluticasone Furoate (Fluticasone Furoate 200mcg 14 Puffs/Inhaler) 1 puffs INH DAILY [facility]; Protocol Stop: 07/27/25 08:59 Last Admin: 06/28/25 09:13 Dose: 1 puffs Folic Acid (Folic Acid 1 Mg Tab) 1 mg PO DAILY [facility] Stop: 07/27/25 08:59 Last Admin: 06/28/25 09:13 Dose: 1 mg Glucagon (Glucagon For Inj 1 Mg Vial) 1 mg SQ UD PRN; Protocol PRN Reason: Hypoglycemia Protocol Stop: 07/26/25 19:44 Glucose (Glucose 40% Gel 15 Gm Tube) 15 - 30 gm PO UD PRN; Protocol PRN Reason: Hypoglycemia Protocol Stop: 07/26/25 19:44 Glucose (Glucose 10 Tab/Tube) 4 - 8 tab PO UD PRN; Protocol PRN Reason: Hypoglycemia Protocol Stop: 07/26/25 19:44 Ceftriaxone Sodium (Rocephin) 1,000 mg in 50 mls @ 100 mls/hr IV Q24H [facility] Stop: 07/04/25 13:59 Last Infusion: 06/27/25 15:40 Dose: Infused Insulin Aspart (Insulin Aspart Per Unit Charge) 0 units SC ACHS [facility] Stop: 07/26/25 20:59 Last Admin: 06/28/25 09:17 Dose: 7 units Isosorbide Mononitrate (Isosorbide [place] Extended Rel 30 Mg Tabcr) 30 mg PO QAM [facility] Stop: 07/27/25 08:59 Last Admin: 06/28/25 09:14 Dose: 30 mg Lactobacillus Acidophilus (Advanced Probiotic 625 Mg Capsule) 1,250 mg PO DAILY [facility] Stop: 07/27/25 15:14 Last Admin: 06/28/25 09:17 Dose: 1,250 mg Lisinopril (Lisinopril 2.5 Mg Tab) 2.5 mg PO DAILY [facility] Stop: 07/27/25 08:59 Last Admin: 06/28/25 09:14 Dose: 2.5 mg Magnesium Oxide (Magnesium Oxide 400 Mg Tab) 400 mg PO BID [facility] Stop: 07/26/25 20:59 Last Admin: 06/28/25 09:18 Dose: Not Given Metoprolol Succinate (Metoprolol Succ 50mg Ext Rel Tab) 50 mg PO BID [facility] Stop: 07/26/25 20:59 Last Admin: 06/28/25 09:14 Dose: Not Given Miscellaneous (Carbohydrates For Hypoglycemia ) 15 - 30 gm PO UD PRN PRN Reason: Hypoglycemia Protocol Stop: 07/26/25 19:44 Ondansetron HCl (Ondansetron 4 Mg Od Tab) 8 mg PO Q8H PRN PRN Reason: NAUSEA/VOMITING Stop: 07/26/25 16:47 Pantoprazole Sodium (Pantoprazole 40 Mg Tab) 40 mg PO BID [facility] Stop: 07/26/25 20:59 Last Admin: 06/28/25 09:13 Dose: 40 mg Potassium Chloride (Potassium Chloride Crtab 20 Meq Tabcr) 20 meq PO BID [facility] Stop: 07/26/25 20:59 Last Admin: 06/28/25 09:28 Dose: 20 meq Tamsulosin HCl (Tamsulosin Hcl 0.4 Mg Cap) 0.4 mg PO QAM [facility] Stop: 07/27/25 08:59 Last Admin: 06/28/25 09:14 Dose: 0.4 mg Trazodone HCl (Trazodone Hcl 50 Mg Tab) 50 mg PO HS [facility] Stop: 07/26/25 20:59 Last Admin: 06/27/25 20:41 Dose: 50 mg Umeclidinium/Vilanterol (Umeclidinium/Vilanterol 62.5/25mcg 7 Puffs/Inhaler) 1 puffs INH DAILY [facility]; Protocol Stop: 07/27/25 08:59 Last Admin: 06/28/25 09:13 Dose: 1 puffs Vitamin B Complex (Vitamin B Complex Tab) 1 tab PO DAILY [facility] Stop: 07/27/25 08:59 Last Admin: 06/28/25 09:14 Dose: 1 tab Vitamin D (Cholecalciferol 25 Mcg (1000 Units) Tab) 25 mcg PO QAM [facility] Stop: 07/27/25 08:59 Last Admin: 06/28/25 09:13 Dose: 25 mcg
[2025-06-29 05:50] LABS: Hematocrit (blood only) 23.7 % (42.0-52.0); Hemoglobin 7.6 g/dl (14.0-18.0); Mean Corpuscular Hemoglobin 35.0 pg (25.0-34.0); Mean Corpuscular Volume 109.2 fL (80.0-100.0); Platelet Count 72 K/uL (130-400); RDW Standard Deviation 69.3 fL (36.4-46.3); Red Blood Count 2.17 M/uL (4.70-6.10); White Blood Count 3.11 K/ul (4.8-10.8)
[2025-06-29 06:07] LABS: Anion Gap 3.0 (3-11); Blood Urea Nitrogen 17.0 mg/dl (6-23); Calcium 8.4 mg/dl (8.6-10.3); Carbon Dioxide 27.0 mmol/L (21-32); Chloride 113.0 mmol/L (98-107); Creatinine Clr Calc Pharmacy 39.8 ml/min; Glucose 94.0 mg/dl (70-99(Fasting)); Magnesium 1.7 mg/dl (1.7-2.4); Potassium 4.8 mmol/L (3.5-5.1); Sodium 143.0 mmol/L (136-145)
--- NOTE | 2025-06-29 11:06 | Hospitalist Progress Note ---
Date of Service June 29, 2025 Assessment & Plan (1) Cellulitis of right leg: (2) Pancytopenia: (3) Pancytopenia due to chemotherapy: (4) PAD (peripheral artery disease): (5) Myocardial Infarction: (6) History of lung cancer: (7) Paroxysmal atrial fibrillation: (8) CAD (coronary artery disease): (9) COPD (chronic obstructive pulmonary disease): (10) Diabetes mellitus, type II: Plan 79-year-old man with history of chronic diastolic heart failure, CAD status post stents, paroxysmal A-fib not on anticoagulation per patient preference, valvular heart disease, PVD, hypertension, hyperlipidemia, diabetes on oral meds, COPD, metastatic cancer of unknown primary on chemotherapy, bladder cancer cervical surgery, skin cancer, Sofie-Mueller tear, BPH, recurrent UTI, chronic pancytopenia, ongoing smoker who was recently hospitalized from 06/21-06/23 for leg cellulitis who presents again today for worsening right leg infection Patient stable for WBC 3.88, hemoglobin of 9.1, MCV of 110, platelet of 2, AST of 63, ALT of 64 Got IV ceftriaxone in ER Continue IV ceftriaxone and doxycycline for now. Reviewed imaging from 06/21/2025. CT foot showed diffuse subcutaneous edema no soft tissue gas or abscess. MRSA screen negative 06/27 Pt says his right leg feels somewhat improved. Denies any other complaint. 06/29 Erythema, edema and pain improved. Patient still pancytopenic. Hemoglobin 9.1 on admission [8.1 on 06/23/2025]. WBCs 3.3. WBC 1.82 on . Monitor hemoglobin and transfuse as needed to keep above 7 Continue folate and B complex For intermittent diarrhea, tested for C. diff and negative Monitor BM and electrolytes started probiotic HbA1c was 6 in 02/11/25 per [facility] Carb controlled diet for now Hold home metformin Will monitor BG and do ISS Reports he does not eat much due to anorexia. This he stated is chronic. 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 pain, n/v Review of Systems Review of Systems: All systems reviewed & are unremarkable except as noted in Subjective Physical Exam Physical Exam: Constitutional: WD/WN elderly M in NAD Eyes: PERRL, conjunctiva e normal, anicteri c sclerae ENMT: external ear and n ose normal Respiratory: CTAB Cardiovascular: Rate/Rhythm: regul ar rate and regula r rhythm Gastrointestinal ( Abdomen): normal bowel sound s, soft, nontender Musculoskeletal: Right leg erythem a, tenderness and swelling up to upp er third of leg ( improved) Neurologic: PERRL, EOMI, no fa ce palsy, no dysar thria, moves extre mities Psychiatric: A+Ox3, euthymic af fect Results & Data Results & Data Vital Signs (Past 12 Hours) Vital Signs Temp Pulse Pulse Resp BP Pulse Ox O2 Del Method 06/29/25 08:57 55 L 16 153/61 H 98 Room Air 06/29/25 06:56 36.7 C 59 L 16 126/61 95 Room Air 06/28/25 23:29 36.6 C 59 L 14 132/65 96 Room Air Laboratory Results 06/29/25 06/29/25 06/28/25 Range/Units 07:36 05:20 20:31 WBC 3.11 L (4.8-10.8) K/ul RBC 2.17 L (4.70-6.10) M/uL Hgb 7.6 L (14.0-18.0) g/dl Hct 23.7 L (42.0-52.0) % MCV 109.2 H (80.0-100.0) fL MCH 35.0 H (25.0-34.0) pg MCHC 32.1 (32.0-36.0) g/dL RDW Std Deviation 69.3 H (36.4-46.3) fL RDW Coeff of Ele 17.2 H (11.5-14.5) % Plt Count 72 L (130-400) K/uL MPV 12.3 (9.4-12.4) fL Sodium 143 (136-145) mmol/L Potassium 4.8 (3.5-5.1) mmol/L Chloride 113 H (98-107) mmol/L Carbon Dioxide 27 (21-32) mmol/L Anion Gap 3 (3-11) BUN 17 (6-23) mg/dl Creatinine 1.43 H (0.6-1.4) mg/dl Est Cr Clr Drug Dosing 39.8 ml/min eGFR 50.15 BUN/Creatinine Ratio 11.9 (10-20) Glucose 94 (70-99(Fasting)) mg/dl POC Glucose 102 H 118 H (70-99) mg/dl Calcium 8.4 L (8.6-10.3) mg/dl Phosphorus 3.9 (2.5-4.9) mg/dl Magnesium 1.7 (1.7-2.4) mg/dl 06/28/25 Range/Units 16:27 WBC (4.8-10.8) K/ul RBC (4.70-6.10) M/uL Hgb (14.0-18.0) g/dl Hct (42.0-52.0) % MCV (80.0-100.0) fL MCH (25.0-34.0) pg MCHC (32.0-36.0) g/dL RDW Std Deviation (36.4-46.3) fL RDW Coeff of Ele (11.5-14.5) % Plt Count (130-400) K/uL MPV (9.4-12.4) fL Sodium (136-145) mmol/L Potassium (3.5-5.1) mmol/L Chloride (98-107) mmol/L Carbon Dioxide (21-32) mmol/L Anion Gap (3-11) BUN (6-23) mg/dl Creatinine (0.6-1.4) mg/dl Est Cr Clr Drug Dosing ml/min eGFR BUN/Creatinine Ratio (10-20) Glucose (70-99(Fasting)) mg/dl POC Glucose 79 (70-99) mg/dl Calcium (8.6-10.3) mg/dl Phosphorus (2.5-4.9) mg/dl Magnesium (1.7-2.4) mg/dl Medications Administered Current Inpatient Medications Albuterol (Albuterol Hfa 8 Gm Inhaler) 2 puffs INH Q4H PRN PRN Reason: shortness of breath or wheezing Stop: 07/26/25 16:39 Aspirin (Aspirin 81 Mg Ectab) 81 mg PO DAILY [facility] Stop: 07/27/25 08:59 Last Admin: 06/29/25 09:00 Dose: 81 mg Atorvastatin Calcium (Atorvastatin 40 Mg Tab) 80 mg PO DAILY [facility] Stop: 07/27/25 08:59 Last Admin: 06/29/25 09:00 Dose: 80 mg Dextrose (Dextrose 50% 50 Ml Syringe) 25 - 50 ml IV UD PRN; Protocol PRN Reason: Hypoglycemia Protocol Stop: 07/26/25 19:44 Doxycycline Hyclate (Doxycycline Hyclate 100 Mg Cap) 100 mg PO BID [facility] Stop: 07/03/25 20:59 Last Admin: 06/29/25 09:00 Dose: 100 mg Enoxaparin Sodium (Enoxaparin Inj 40 Mg/0.4 Ml Syr) 40 mg SQ Q24H [facility] Stop: 07/26/25 16:59 Last Admin: 06/28/25 17:32 Dose: 40 mg Fluticasone Furoate (Fluticasone Furoate 200mcg 14 Puffs/Inhaler) 1 puffs INH DAILY [facility]; Protocol Stop: 07/27/25 08:59 Last Admin: 06/29/25 09:00 Dose: 1 puffs Folic Acid (Folic Acid 1 Mg Tab) 1 mg PO DAILY [facility] Stop: 07/27/25 08:59 Last Admin: 06/29/25 09:00 Dose: 1 mg Glucagon (Glucagon For Inj 1 Mg Vial) 1 mg SQ UD PRN; Protocol PRN Reason: Hypoglycemia Protocol Stop: 07/26/25 19:44 Glucose (Glucose 40% Gel 15 Gm Tube) 15 - 30 gm PO UD PRN; Protocol PRN Reason: Hypoglycemia Protocol Stop: 07/26/25 19:44 Glucose (Glucose 10 Tab/Tube) 4 - 8 tab PO UD PRN; Protocol PRN Reason: Hypoglycemia Protocol Stop: 07/26/25 19:44 Ceftriaxone Sodium (Rocephin) 1,000 mg in 50 mls @ 100 mls/hr IV Q24H [facility] Stop: 07/04/25 13:59 Last Infusion: 06/28/25 15:50 Dose: Infused Insulin Aspart (Insulin Aspart Per Unit Charge) 0 units SC ACHS [facility] Stop: 07/26/25 20:59 Last Admin: 06/29/25 08:49 Dose: 8 units Isosorbide Mononitrate (Isosorbide [place] Extended Rel 30 Mg Tabcr) 30 mg PO QAM [facility] Stop: 07/27/25 08:59 Last Admin: 06/29/25 09:01 Dose: 30 mg Lactobacillus Acidophilus (Advanced Probiotic 625 Mg Capsule) 1,250 mg PO DAILY [facility] Stop: 07/27/25 15:14 Last Admin: 06/29/25 09:01 Dose: 1,250 mg Lisinopril (Lisinopril 2.5 Mg Tab) 2.5 mg PO DAILY [facility] Stop: 07/27/25 08:59 Last Admin: 06/29/25 09:01 Dose: 2.5 mg Magnesium Oxide (Magnesium Oxide 400 Mg Tab) 400 mg PO BID [facility] Stop: 07/26/25 20:59 Last Admin: 06/28/25 09:18 Dose: Not Given Metoprolol Succinate (Metoprolol Succ 50mg Ext Rel Tab) 50 mg PO BID [facility] Stop: 07/26/25 20:59 Last Admin: 06/29/25 09:01 Dose: Not Given Miscellaneous (Carbohydrates For Hypoglycemia ) 15 - 30 gm PO UD PRN PRN Reason: Hypoglycemia Protocol Stop: 07/26/25 19:44 Ondansetron HCl (Ondansetron 4 Mg Od Tab) 8 mg PO Q8H PRN PRN Reason: NAUSEA/VOMITING Stop: 07/26/25 16:47 Pantoprazole Sodium (Pantoprazole 40 Mg Tab) 40 mg PO BID [facility] Stop: 07/26/25 20:59 Last Admin: 06/29/25 09:01 Dose: 40 mg Potassium Chloride (Potassium Chloride Crtab 20 Meq Tabcr) 20 meq PO BID [facility] Stop: 07/26/25 20:59 Last Admin: 06/29/25 09:01 Dose: 20 meq Tamsulosin HCl (Tamsulosin Hcl 0.4 Mg Cap) 0.4 mg PO QAM [facility] Stop: 07/27/25 08:59 Last Admin: 06/29/25 09:01 Dose: 0.4 mg Trazodone HCl (Trazodone Hcl 50 Mg Tab) 50 mg PO HS [facility] Stop: 07/26/25 20:59 Last Admin: 06/28/25 20:10 Dose: 50 mg Umeclidinium/Vilanterol (Umeclidinium/Vilanterol 62.5/25mcg 7 Puffs/Inhaler) 1 puffs INH DAILY [facility]; Protocol Stop: 07/27/25 08:59 Last Admin: 06/29/25 09:02 Dose: 1 puffs Vitamin B Complex (Vitamin B Complex Tab) 1 tab PO DAILY [facility] Stop: 07/27/25 08:59 Last Admin: 06/29/25 09:01 Dose: 1 tab Vitamin D (Cholecalciferol 25 Mcg (1000 Units) Tab) 25 mcg PO QAM [facility] Stop: 07/27/25 08:59 Last Admin: 06/29/25 09:00 Dose: 25 mcg
[2025-06-29] MEDS: MAGNESIUM SULFATE / D5W 1 GM/100 ML BAG IV ONE (11:37)
[2025-06-30 06:41] LABS: Hematocrit (blood only) 25.2 % (42.0-52.0); Hemoglobin 8.1 g/dl (14.0-18.0); Mean Corpuscular Hemoglobin 35.4 pg (25.0-34.0); Mean Corpuscular Volume 110.0 fL (80.0-100.0); Platelet Count 105 K/uL (130-400); RDW Standard Deviation 68.6 fL (36.4-46.3); Red Blood Count 2.29 M/uL (4.70-6.10); White Blood Count 3.04 K/ul (4.8-10.8)
[2025-06-30 06:57] LABS: Anion Gap 3.0 (3-11); Blood Urea Nitrogen 19.0 mg/dl (6-23); Calcium 8.4 mg/dl (8.6-10.3); Carbon Dioxide 28.0 mmol/L (21-32); Chloride 112.0 mmol/L (98-107); Creatinine Clr Calc Pharmacy 42.1 ml/min; Glucose 93.0 mg/dl (70-99(Fasting)); Magnesium 1.8 mg/dl (1.7-2.4); Potassium 4.9 mmol/L (3.5-5.1); Sodium 143.0 mmol/L (136-145)
--- NOTE | 2025-06-30 09:47 | Hospitalist Progress Note ---
Date of Service June 30, 2025 Assessment & Plan (1) Cellulitis of right leg: (2) Pancytopenia: (3) Pancytopenia due to chemotherapy: (4) PAD (peripheral artery disease): (5) Myocardial Infarction: (6) History of lung cancer: (7) Paroxysmal atrial fibrillation: (8) CAD (coronary artery disease): (9) COPD (chronic obstructive pulmonary disease): (10) Diabetes mellitus, type II: Plan 79-year-old man with history of chronic diastolic heart failure, CAD status post stents, paroxysmal A-fib not on anticoagulation per patient preference, valvular heart disease, PVD, hypertension, hyperlipidemia, diabetes on oral meds, COPD, metastatic cancer of unknown primary on chemotherapy, bladder cancer cervical surgery, skin cancer, Sofie-Mueller tear, BPH, recurrent UTI, chronic pancytopenia, ongoing smoker who was recently hospitalized from 06/21-06/23 for leg cellulitis who presents again today for worsening right leg infection Patient stable for WBC 3.88, hemoglobin of 9.1, MCV of 110, platelet of 2, AST of 63, ALT of 64 Got IV ceftriaxone in ER Continue IV ceftriaxone and doxycycline for now. Reviewed imaging from 06/21/2025. CT foot showed diffuse subcutaneous edema no soft tissue gas or abscess. MRSA screen negative 06/27 Pt says his right leg feels somewhat improved. Denies any other complaint. 06/29 Erythema, edema and pain improved. 06/30 Pain, erythema, edema improved. Patient still pancytopenic. Hemoglobin 9.1 on admission [8.1 on 06/23/2025]. WBCs 3.3. WBC 1.82 on 06/23/2025. Monitor hemoglobin and transfuse as needed to keep above 7 Continue folate and B complex For intermittent diarrhea, tested for C. diff and negative Monitor BM and electrolytes started probiotic HbA1c was 6 in 02/11/25 per EPIC Carb controlled diet for now Hold home metformin Will monitor BG and do ISS Reports he does not eat much due to anorexia. This he stated is chronic. 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 pain, n/v Review of Systems Review of Systems: All systems reviewed & are unremarkable except as noted in Subjective Physical Exam Physical Exam: Constitutional: WD/WN elderly M in NAD Eyes: PERRL, conjunctiva e normal, anicteri c sclerae ENMT: external ear and n ose normal Respiratory: CTAB Cardiovascular: Rate/Rhythm: regul ar rate and regula r rhythm Gastrointestinal ( Abdomen): normal bowel sound s, soft, nontender Musculoskeletal: Right leg erythem a, tenderness and swelling up to upp er third of leg ( much improved) Neurologic: PERRL, EOMI, no fa ce palsy, no dysar thria, moves extre mities Psychiatric: A+Ox3, euthymic af fect Results & Data Results & Data Vital Signs (Past 12 Hours) Vital Signs Temp Pulse Resp BP Pulse Ox O2 Del Method 06/30/25 07:16 36.7 C 53 L 16 148/69 H 96 Room Air 06/29/25 22:22 36.7 C 70 16 105/57 L 96 Room Air Laboratory Results 06/30/25 06/30/25 06/29/25 Range/Units 07:37 06:20 20:40 WBC 3.04 L (4.8-10.8) K/ul RBC 2.29 L (4.70-6.10) M/uL Hgb 8.1 L (14.0-18.0) g/dl Hct 25.2 L (42.0-52.0) % MCV 110.0 H (80.0-100.0) fL MCH 35.4 H (25.0-34.0) pg MCHC 32.1 (32.0-36.0) g/dL RDW Std Deviation 68.6 H (36.4-46.3) fL RDW Coeff of Ele 17.4 H (11.5-14.5) % Plt Count 105 L (130-400) K/uL MPV 12.5 H (9.4-12.4) fL Sodium 143 (136-145) mmol/L Potassium 4.9 (3.5-5.1) mmol/L Chloride 112 H (98-107) mmol/L Carbon Dioxide 28 (21-32) mmol/L Anion Gap 3 (3-11) BUN 19 (6-23) mg/dl Creatinine 1.33 (0.6-1.4) mg/dl Est Cr Clr Drug Dosing 42.1 ml/min eGFR 54.37 BUN/Creatinine Ratio 14.3 (10-20) Glucose 93 (70-99(Fasting)) mg/dl POC Glucose 105 H 116 H (70-99) mg/dl Calcium 8.4 L (8.6-10.3) mg/dl Phosphorus 3.8 (2.5-4.9) mg/dl Magnesium 1.8 (1.7-2.4) mg/dl 06/29/25 06/29/25 Range/Units 16:55 11:37 WBC (4.8-10.8) K/ul RBC (4.70-6.10) M/uL Hgb (14.0-18.0) g/dl Hct (42.0-52.0) % MCV (80.0-100.0) fL MCH (25.0-34.0) pg MCHC (32.0-36.0) g/dL RDW Std Deviation (36.4-46.3) fL RDW Coeff of Ele (11.5-14.5) % Plt Count (130-400) K/uL MPV (9.4-12.4) fL Sodium (136-145) mmol/L Potassium (3.5-5.1) mmol/L Chloride (98-107) mmol/L Carbon Dioxide (21-32) mmol/L Anion Gap (3-11) BUN (6-23) mg/dl Creatinine (0.6-1.4) mg/dl Est Cr Clr Drug Dosing ml/min eGFR BUN/Creatinine Ratio (10-20) Glucose (70-99(Fasting)) mg/dl POC Glucose 100 H 70 (70-99) mg/dl Calcium (8.6-10.3) mg/dl Phosphorus (2.5-4.9) mg/dl Magnesium (1.7-2.4) mg/dl Medications Administered Current Inpatient Medications Albuterol (Albuterol Hfa 8 Gm Inhaler) 2 puffs INH Q4H PRN PRN Reason: shortness of breath or wheezing Stop: 07/26/25 16:39 Aspirin (Aspirin 81 Mg Ectab) 81 mg PO DAILY [facility] Stop: 07/27/25 08:59 Last Admin: 06/30/25 07:47 Dose: 81 mg Atorvastatin Calcium (Atorvastatin 40 Mg Tab) 80 mg PO DAILY [facility] Stop: 07/27/25 08:59 Last Admin: 06/30/25 07:48 Dose: 80 mg Dextrose (Dextrose 50% 50 Ml Syringe) 25 - 50 ml IV UD PRN; Protocol PRN Reason: Hypoglycemia Protocol Stop: 07/26/25 19:44 Doxycycline Hyclate (Doxycycline Hyclate 100 Mg Cap) 100 mg PO BID [facility] Stop: 07/03/25 20:59 Last Admin: 06/30/25 07:47 Dose: 100 mg Enoxaparin Sodium (Enoxaparin Inj 40 Mg/0.4 Ml Syr) 40 mg SQ Q24H [facility] Stop: 07/26/25 16:59 Last Admin: 06/29/25 17:32 Dose: 40 mg Fluticasone Furoate (Fluticasone Furoate 200mcg 14 Puffs/Inhaler) 1 puffs INH DAILY [facility]; Protocol Stop: 07/27/25 08:59 Last Admin: 06/30/25 07:50 Dose: 1 puffs Folic Acid (Folic Acid 1 Mg Tab) 1 mg PO DAILY [facility] Stop: 07/27/25 08:59 Last Admin: 06/30/25 07:48 Dose: 1 mg Glucagon (Glucagon For Inj 1 Mg Vial) 1 mg SQ UD PRN; Protocol PRN Reason: Hypoglycemia Protocol Stop: 07/26/25 19:44 Glucose (Glucose 40% Gel 15 Gm Tube) 15 - 30 gm PO UD PRN; Protocol PRN Reason: Hypoglycemia Protocol Stop: 07/26/25 19:44 Glucose (Glucose 10 Tab/Tube) 4 - 8 tab PO UD PRN; Protocol PRN Reason: Hypoglycemia Protocol Stop: 07/26/25 19:44 Ceftriaxone Sodium (Rocephin) 1,000 mg in 50 mls @ 100 mls/hr IV Q24H [facility] Stop: 07/04/25 13:59 Last Infusion: 06/29/25 14:19 Dose: Infused Insulin Aspart (Insulin Aspart Per Unit Charge) 0 units SC ACHS [facility] Stop: 07/26/25 20:59 Last Admin: 06/30/25 07:57 Dose: 6 units Isosorbide Mononitrate (Isosorbide Mcnairy Extended Rel 30 Mg Tabcr) 30 mg PO QAM [facility] Stop: 07/27/25 08:59 Last Admin: 06/30/25 07:48 Dose: 30 mg Lactobacillus Acidophilus (Advanced Probiotic 625 Mg Capsule) 1,250 mg PO DAILY [facility] Stop: 07/27/25 15:14 Last Admin: 06/30/25 07:49 Dose: 1,250 mg Lisinopril (Lisinopril 2.5 Mg Tab) 2.5 mg PO DAILY [facility] Stop: 07/27/25 08:59 Last Admin: 06/30/25 07:47 Dose: 2.5 mg Magnesium Oxide (Magnesium Oxide 400 Mg Tab) 400 mg PO BID [facility] Stop: 07/26/25 20:59 Last Admin: 06/28/25 09:18 Dose: Not Given Metoprolol Succinate (Metoprolol Succ 50mg Ext Rel Tab) 50 mg PO BID [facility] Stop: 07/26/25 20:59 Last Admin: 06/30/25 07:48 Dose: 50 mg Miscellaneous (Carbohydrates For Hypoglycemia ) 15 - 30 gm PO UD PRN PRN Reason: Hypoglycemia Protocol Stop: 07/26/25 19:44 Ondansetron HCl (Ondansetron 4 Mg Od Tab) 8 mg PO Q8H PRN PRN Reason: NAUSEA/VOMITING Stop: 07/26/25 16:47 Pantoprazole Sodium (Pantoprazole 40 Mg Tab) 40 mg PO BID [facility] Stop: 07/26/25 20:59 Last Admin: 06/30/25 07:48 Dose: 40 mg Potassium Chloride (Potassium Chloride Crtab 20 Meq Tabcr) 20 meq PO BID [facility] Stop: 07/26/25 20:59 Last Admin: 06/30/25 07:51 Dose: 20 meq Tamsulosin HCl (Tamsulosin Hcl 0.4 Mg Cap) 0.4 mg PO QAM [facility] Stop: 07/27/25 08:59 Last Admin: 06/30/25 07:48 Dose: 0.4 mg Trazodone HCl (Trazodone Hcl 50 Mg Tab) 50 mg PO HS [facility] Stop: 07/26/25 20:59 Last Admin: 06/29/25 20:00 Dose: 50 mg Umeclidinium/Vilanterol (Umeclidinium/Vilanterol 62.5/25mcg 7 Puffs/Inhaler) 1 puffs INH DAILY [facility]; Protocol Stop: 07/27/25 08:59 Last Admin: 06/30/25 07:49 Dose: 1 puffs Vitamin B Complex (Vitamin B Complex Tab) 1 tab PO DAILY [facility] Stop: 07/27/25 08:59 Last Admin: 06/30/25 07:47 Dose: 1 tab Vitamin D (Cholecalciferol 25 Mcg (1000 Units) Tab) 25 mcg PO QAM [facility] Stop: 07/27/25 08:59 Last Admin: 06/30/25 07:47 Dose: 25 mcg
[2025-06-30] MEDS ORDERED: HEPARIN 100 UNIT/ML 5ML FLUSH FLUSH PRN (12:44)
[2025-07-01 02:36] VITALS: TEMP 97.7
[2025-07-01 07:33] VITALS: BP 125/57; RESP 18; O2SAT 100
--- NOTE | 2025-07-01 09:58 | Discharge Summary ---
Date of Service July 01, 2025 Admission HPI Per Admitting Provider 79-year-old man with history of chronic diastolic heart failure, CAD status post stents, paroxysmal A-fib not on anticoagulation per patient preference, valvular heart disease, PVD, hypertension, hyperlipidemia, diabetes on oral meds, COPD, metastatic cancer of unknown primary on chemotherapy, bladder cancer cervical surgery, skin cancer, Sofie-Mueller tear, BPH, recurrent UTI, chronic pancytopenia, ongoing smoker who was recently hospitalized from 06/21-06/23 for leg cellulitis who presents again today for worsening right leg infection Patient was treated and discharged on doxycycline which he stated he has been taking States that the redness and pain persisted. He was seen by his PCP in the office today and sent in for worsening right leg infection. Denied fever or chills. Reports chronic cough, chronic intermittent diarrhea. Denies nausea, vomiting, chest pain, Denies dysuria or frequency Last chemotherapy was about 2 weeks ago. Patient still smokes about 4 to 5 cigarettes/day. Denies alcohol or illicit drug use. Admission Exam Per Admitting Provider Constitutional: + well hydrated; no acute distress Eyes: PERRL, conjunctivae normal, anicteric sclerae ENMT: external ear and nose normal, oropharynx normal Respiratory: Not in respiratory distress, on room air, good air entry, few crackles Cardiovascular: Rate/Rhythm: regular rate and regular rhythm Gastrointestinal (Abdomen): normal bowel sounds, soft, nontender, no hepatosplenomegaly Musculoskeletal: Right leg erythema, tenderness and swelling up to upper third of leg (old marking patient stated was from ext ent of erythema on Tuesday) Neurologic: PERRL, EOMI, accommodation nl, no face palsy, no dysarthria Psychiatric: A+Ox3, euthymic affect Principal Diagnosis Right leg cellulitis Discharge Exam Constitutional: WD/WN elderly M in NAD Eyes: PERRL, conjunctivae normal, anicteric sclerae ENMT: external ear and nose normal Respiratory: CTAB Cardiovascular: Rate/Rhythm: regular rate and regular rhythm Gastrointestinal (Abdomen): normal bowel sounds, soft, nontender Musculoskeletal: Right leg erythema, tenderness and swelling up to upper third of leg much improved/ mostly resolved Neurologic: PERRL, EOMI, no face palsy, no dysarthria, moves extremities Psychiatric: A+Ox3, euthymic affect Discharge Data Allergies Allergy/AdvReac Type Severity Reaction Status Date / Time bee venom protein (honey bee) Allergy Severe ANAPHYLAXIS Verified 06/21/25 20:53 cephalexin [From Keflex] Allergy Unknown CAN'T Verified 06/21/25 20:53 MD CHIDI ADDED TO LIST Consultations 06/26/25 15:24 ED Decision to Admit Stat Hospital Course (1) Cellulitis of right leg: (2) Pancytopenia: (3) Pancytopenia due to chemotherapy: (4) PAD (peripheral artery disease): (5) Myocardial Infarction: (6) History of lung cancer: (7) Paroxysmal atrial fibrillation: (8) CAD (coronary artery disease): (9) COPD (chronic obstructive pulmonary disease): (10) Diabetes mellitus, type II: Plan 79-year-old man with history of chronic diastolic heart failure, CAD status post stents, paroxysmal A-fib not on anticoagulation per patient preference, valvular heart disease, PVD, hypertension, hyperlipidemia, diabetes on oral meds, COPD, metastatic cancer of unknown primary on chemotherapy, bladder cancer cervical surgery, skin cancer, Sofie-Mueller tear, BPH, recurrent UTI, chronic pancytopenia, ongoing smoker who was recently hospitalized from 06/21-06/23 for leg cellulitis who presents again today for worsening right leg infection Patient stable for WBC 3.88, hemoglobin of 9.1, MCV of 110, platelet of 2, AST of 63, ALT of 64 Got IV ceftriaxone in ER Continued IV ceftriaxone and doxycycline while inpt. Reviewed imaging from 06/21/2025. CT foot showed diffuse subcutaneous edema no soft tissue gas or abscess. MRSA screen negative 06/27 Pt says his right leg feels somewhat improved. Denies any other complaint. 06/29 Erythema, edema and pain improved. 06/30 Pain, erythema, edema improved. 07/01 Erythema, edema, pain mostly resolved. Patient still pancytopenic. Hemoglobin 9.1 on admission [8.1 on 06/23/2025]. WBCs 3.3. WBC 1.82 on 06/23/2025. Monitor hemoglobin and transfuse as needed to keep above 7 Continue folate and B complex For intermittent diarrhea, tested for C. diff and negative Monitor BM and electrolytes started probiotic HbA1c was 6 in 02/11/25 per EPIC Carb controlled diet for now Hold home metformin Will monitor BG and do ISS Reports he does not eat much due to anorexia. This he stated is chronic. 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 Counseled regarding smoking cessation Continue Aspirin, atorvastatin Continue TAN[employer]ER imdur, lisinopril and toprol XL Total Time Total Time Spent Total Time Spent (In Minutes): 25 Discharge Plan Discharge Items Patient Disposition: Home - Self-Care Reason For Visit: WORSENING RIGHT LEG CELLULITIS Discharge Diagnosis: Right leg cellulitis Condition on Discharge: Good Activity: Per Instructions section Non-emergency contact: Primary Care Provider Call non-emergency contact if: you have any medication questions and your symptoms worsen Follow-up/Referrals: Loretta Treviño MD [Primary Care Provider] - 07/08/25 1:20 pm (Date & Time 07/08/2025 1:20 PM Provider: Loretta Bush MD [facility] ) Kirill Everett MD [Hospitalist] - 07/02/25 1:00 pm Diet: Carb Count or DM1 Addtl Attending Provider Instructions: Follow up with your primary care doctor within 1-2 weeks. The apointment was scheduled for you for 07/08/2025. Finish the antibiotic treatment as prescribed. Pending Studies at Discharge: No Stand-Alone Forms: My [facility] Cycle, Smoking Cessation Medications and DC Order Prescriptions: New cefuroxime axetil 250 mg tablet 250 mg PO BID 5 Days Qty: 10 0RF Advanced Probiotic 625 mg (10 billion cell) Capsule 1 cap PO DAILY Qty: 7 0RF Continued metformin 500 mg tablet 500 mg PO BIDM atorvastatin 80 mg tablet 80 mg PO DAILY tamsulosin 0.4 mg capsule 0.4 mg PO QAM nitroglycerin [Nitrostat] 0.4 mg Tablet, Sublingual 0.4 mg sublingual DIRECTED PRN (Reason: Chest Pain) epinephrine 0.3 mg/0.3 mL auto-injector 0.3 mg IM DIRECTED PRN (Reason: Allergic Reaction) cholecalciferol (vitamin D3) [Vitamin D3] 25 mcg (1,000 unit) Capsule 1,000 unit PO QAM isosorbide mononitrate 30 mg Tablet Extended Release 24 Hr 30 mg PO QAM lisinopril 2.5 mg Tablet 2.5 mg PO DAILY trazodone 50 mg tablet 50 mg PO HS prochlorperazine maleate 10 mg tablet 10 mg PO Q6H PRN (Reason: Nausea And Vomiting) folic acid 1 mg Tablet 1 mg PO DAILY Breztri Aerosphere 160-9-4.8 mcg/actuation Hfa Aerosol Inhaler 2 inh INHALATION BID albuterol sulfate 90 mcg/actuation HFA aerosol inhaler 2 inh inhalation Q4H PRN (Reason: shortness of breath or wheezing) pantoprazole 40 mg Tablet,Delayed Release (Dr/Ec) 40 mg PO BID Qty: 60 0RF metoprolol succinate 50 mg Tablet Extended Release 24 Hr 50 mg PO BID ondansetron HCl 8 mg Tablet 8 mg PO Q8H PRN (Reason: NAUSEA/VOMITING) aspirin 81 mg Tablet,Delayed Release (Dr/Ec) 81 mg PO DAILY lidocaine-prilocaine 2.5-2.5 % Cream 1 applic topical DIRECTED PRN (Reason: ACCESSING MEDIPORT) Rx Instructions: APPLY TO PORT AREA, COVER FOR 1 HR dexamethasone 4 mg Tablet 8 mg PO DIRECTED PRN (Reason: DAYS 2,3,4 OF CHEMO) loratadine [Claritin] 10 mg Tablet 10 mg PO DAILY PRN (Reason: START DAY OF CHEMO X 5 DAYS.) B-complex with vitamin C Capsule 1 cap PO DAILY loperamide [Imodium A-D] 1 mg/7.5 mL Liquid 0.5 mg PO DAILY PRN (Reason: Diarrhea) Rx Instructions: TAKES 3.8 ML IF NEEDED. doxycycline hyclate 100 mg Capsule 100 mg PO BID 7 Days Qty: 14 0RF potassium chloride 20 mEq Tablet,Er Particles/Crystals 20 meq PO BID 5 Days Qty: 10 0RF magnesium oxide 400 mg (241.3 mg magnesium) Tablet 400 mg PO BID 5 Days Qty: 10 0RF oxycodone 5 mg Tablet 5 mg PO Q4H PRN (Reason: pain) Qty: 10 0RF Discharge Orders: Discharge Order (Routine); Ordered 07/01/25 Ordered By: Adis Gavin Admission Data Admit Date/Time: 06/26/25 14:58 Attending Provider: Adis Gavin Admit Provider: Mckayla Brenner I. Primary Care Provider: Loretta Treviño Other Providers: Mckayla Brenner I.
[2025-07-01 11:35] VITALS: PULSE 62
== END 2025-07-01 12:31 | disposition home or self-care (01) | DRG 602 ==
LOC: ED 11:28 → 3E 14:58 → SUATTDRO 14:58 → 3E 16:19

== ENCOUNTER 2025-08-15 16:23 | Inpatient (IN) ==
[2025-08-15 17:08] LABS: Hematocrit (blood only) 27.2 % (42.0-52.0); Hemoglobin 9.0 g/dL (14.0-18.0); Immature Granulocytes # (auto) 0.03 K/uL (0.01-0.20); Immature Granulocytes % (auto) 0.5 %; Mean Corpuscular Hemoglobin 37.0 pg (25.0-34.0); Mean Corpuscular Volume 111.9 fL (80.0-100.0); Platelet Count 168 K/uL (130-400); RDW Standard Deviation 65.1 fL (36.4-46.3); Red Blood Count 2.43 M/uL (4.70-6.10); White Blood Count 5.46 K/ul (4.8-10.8)
[2025-08-15 17:22] LABS: Alanine Aminotransferase 45.0 U/L (7-52); Albumin Globulin Ratio 1.0 (0.9-2); Albumin Level 3.2 gm/dl (3.4-5.0); Alkaline Phosphatase 127.0 U/L (34-104); Anion Gap 8.0 (3-11); Bilirubin,Total 0.6 mg/dl (0.2-1.0); Blood Urea Nitrogen 18.0 mg/dl (6-23); Calcium 8.9 mg/dl (8.6-10.3); Carbon Dioxide 26.0 mmol/L (21-32); Chloride 115.0 mmol/L (98-107); Creatinine Clr Calc Pharmacy 38.6 ml/min; Globulin 3.2 gm/dl (2.5-4.0); Glucose 107.0 mg/dl (70-99(Fasting)); Potassium 3.7 mmol/L (3.5-5.1); Sodium 149.0 mmol/L (136-145); Total Protein 6.4 gm/dl (6.0-8.3)
[2025-08-15 17:28] LABS: INR 1.2 (0.9-1.1); Partial Thromboplastin Time 29 Seconds (21-31); Prothrombin Time 12.6 Seconds (9.0-12.0)
[2025-08-15 17:31] LABS: Acanthocytes 2+; Anisocytosis Present; Hypersegmented Neutrophils 1+; Polychromasia 2+
--- NOTE | 2025-08-15 18:10 | XRay Report ---
Clinical History: Chest pain and shortness of breath Technique: A frontal view of the chest was obtained Comparison is made to the prior examination dated 06/21/2025 Findings: There is suspected mild pulmonary edema. The heart size is within normal limits. No definite pneumothorax is seen. There are small bilateral pleural effusions There are old healed right rib fractures. There is a right chest wall port with its tip in the lower SVC Impression: Mild pulmonary edema and small bilateral pleural effusions ACT 112: Positive. There are findings on this exam that require communication between the performing entity and the patient following Patient Test Result Information Act ([place] ACT 112) guidelines. Electronically signed by Sandeep Norris 08-15-2025 6:10 PM
[2025-08-15] MEDS: FUROSEMIDE 40 MG/4 ML VIAL IV ONE (20:06)
[2025-08-15] MEDS: POTASSIUM CHLORIDE CRTAB 20 MEQ TABCR PO STA (20:41)
[2025-08-15] MEDS: METOPROLOL TARTRATE 1 MG/ML VIAL IV STA (20:42)
[2025-08-15 20:50] LABS: Magnesium 1.3 mg/dl (1.7-2.4)
[2025-08-15] MEDS ORDERED: ACETAMINOPHEN 325 MG TAB PO PRN (22:14)
[2025-08-15] MEDS ORDERED: PROMETHAZINE 6.25 MG/50.25 ML BAG IV PRN (22:15)
[2025-08-15] MEDS: ALBUMIN 25% 12.5 GM/50 ML VIAL IV STA (22:52)
--- NOTE | 2025-08-15 23:36 | History & Physical Report ---
Date of Service August 15, 2025 Assessment & Plan (1) Congestive heart failure: Plan: Assessment and plan below following discussion of case with ED provider and reviewing patient history/pertinent normal/abnormal diagnostic test results. Decompensated heart failure, history of diastolic dysfunction Possibly from uncontrolled blood pressure ? Pericardial effusion on recent outpatient PET/CT contributory to CHF hx coronary artery disease s/p stent (2016)/PVD PAF not on anticoagulation as per patient preference valvular heart disease (moderate MR/mild TR) hyperlipidemia, on statin Rx ARF Persistent transaminitis since May 2025 confinement, patient without abdominal pain complaints DM2 on oral medications, well-controlled as of recent hemoglobin A1c of 6 last January 2025 COPD, chronic cough symptoms metastatic cancer unknown primary status post chemotherapy, chemotherapy currently on hold due to disease progression following recent outpatient [facility] [place] Oncology visit yesterday. Bladder cancer status post surgery history of BPH chronic pancytopenia likely secondary to chemotherapy, hemoglobin better than baseline RLE cellulitis improving on extended doxycycline Rx ongoing tobacco abuse Admit to PCU Add amlodipine to BP regimen Subsequent diuretic Rx contingent on response to initial Lasix dose given at the ER Check portable chest x-ray in a.m. Strict I/Os, daily weights, CHF education, fluid restriction TTE re: pericardial effusion Cardiology consult re: CHF Baseline UA, hold lisinopril for now Liver ultrasound re: persistent transaminitis ISS BG goal 110-140, carb count coverage Nicotine patch as needed DVT prophylaxis. SCDs Re: thrombocytopenia Full code Text document was generated using [employer] voice recognition software. It may contain grammatical or spelling errors. Kindly contact undersigned for clarification of any documentation item in question. History of Present Illness Chief Complaint: Shortness of breath Primary Care Provider: Loretta Treviño MD History obtained from patient and records. Medical history significant for chronic diastolic heart failure (EF 55%, TTE 2024), coronary artery disease s/p stent (2017), PAF not on anticoagulation as per patient preference, valvular heart disease (moderate MR/mild TR), PVD, hypertension, hyperlipidemia, DM2 on oral medications, COPD, metastatic cancer unknown primary status post chemotherapy, bladder cancer status post surgery, skin cancer as per records, Sofie-Mueller tear, history of BPH, recurrent UTIs, chronic pancytopenia (baseline hemoglobin 7-8), RLE cellulitis ongoing doxycycline Rx, ongoing tobacco abuse. Recent confinement last June 2025 for RLE cellulitis. Patient discharged on cefuroxime course. Worsening RLE swelling on follow-up with PC last 08/13. Patient switched to extended doxycycline course which led to improvement of of swelling. Patient more short of breath especially on exertion in the last 3 days. No unusual cough symptoms. No chest pain. Denies weight gain. Denies headache or abdominal pain symptoms. Patient actually thinks he is losing weight. Compliant with medications. Highest SBP of 170s documented at the ER. MEDICAL HISTORY: As above. SURGERIES: He had back surgery x 2 and bladder surgery, cystoscopy, small bladder tumor removal, vascular procedures, cataract surgeries, thoracoscopy/mediastinal biopsy FAMILY HISTORY: Heart disease, DM SOCIAL HISTORY: 3/4 pack daily. 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., Allergies Allergy/AdvReac Type Severity Reaction Status Date / Time bee venom protein (honey bee) Allergy Severe ANAPHYLAXIS Verified 06/21/25 20:53 cephalexin [From Keflex] Allergy Unknown CAN'T Verified 06/21/25 20:53 MD CHIDI ADDED TO LIST Home Medications Medication Instructions Recorded Confirmed Type atorvastatin 80 mg tablet 80 mg PO DAILY 04/22/20 08/15/25 History cholecalciferol (vitamin D3) 25 1,000 unit PO QAM 04/22/20 08/15/25 History mcg (1,000 unit) capsule (Vitamin D3) epinephrine 0.3 mg/0.3 mL 0.3 mg IM DIRECTED PRN Allergic 04/22/20 08/15/25 History injection, auto-injector Reaction metformin 500 mg tablet 500 mg PO BIDM 04/22/20 08/15/25 History nitroglycerin 0.4 mg sublingual 0.4 mg sublingual DIRECTED PRN 04/22/20 08/15/25 History tablet (Nitrostat) Chest Pain tamsulosin 0.4 mg capsule 0.4 mg PO QAM 04/22/20 08/15/25 History isosorbide mononitrate 30 mg 30 mg PO QAM 02/03/23 08/15/25 History tablet,extended release 24 hr lisinopril 2.5 mg tablet 2.5 mg PO QAM 02/03/23 08/15/25 History albuterol sulfate 90 mcg/actuation 2 inh inhalation Q4H PRN shortness 05/18/25 08/15/25 History aerosol inhaler of breath or wheezing budesonide 160 mcg-glycopyr 9 2 inh inhalation BID 05/18/25 08/15/25 History mcg-formot 4.8 mcg/actuation HFA inhaler (Breztri Aerosphere) folic acid 1 mg tablet 1 mg PO QAM 05/18/25 08/15/25 History prochlorperazine maleate 10 mg 10 mg PO Q6H PRN Nausea And 05/18/25 08/15/25 History tablet Vomiting trazodone 50 mg tablet 50 mg PO HS 05/18/25 08/15/25 History pantoprazole 40 mg tablet,delayed 40 mg PO BID #60 tabs 05/21/25 08/15/25 Rx release B-complex with vitamin C 1 cap PO QAM 06/21/25 08/15/25 History aspirin 81 mg tablet,delayed 81 mg PO QAM 06/21/25 08/15/25 History release dexamethasone 4 mg tablet 8 mg PO DIRECTED PRN DAYS 2,3,4 06/21/25 08/15/25 History OF CHEMO lidocaine-prilocaine 2.5 %-2.5 % 1 applic topical DIRECTED PRN 06/21/25 08/15/25 History topical cream ACCESSING MEDIPORT loperamide 1 mg/7.5 mL oral liquid 0.5 mg PO DAILY PRN Diarrhea 06/21/25 08/15/25 History (Imodium A-D) loratadine 10 mg tablet (Claritin) 10 mg PO DAILY PRN START DAY OF 06/21/25 08/15/25 History CHEMO X 5 DAYS. metoprolol succinate 50 mg 50 mg PO BID 06/21/25 08/15/25 History tablet,extended release 24 hr ondansetron HCl 8 mg tablet 8 mg PO Q8H PRN NAUSEA/VOMITING 06/21/25 08/15/25 History oxycodone 5 mg tablet 5 mg PO Q4H PRN pain #10 tabs 06/23/25 08/15/25 Rx L.acidop,casei,lactis,rham-B.lact,zac 1 cap PO QAM 08/15/25 08/15/25 History 625 mg (10 billion cell) capsule (Advanced Probiotic) doxycycline hyclate 100 mg capsule 100 mg PO AMHS 08/15/25 08/15/25 History Past Med/Surg History Problem List (Updated 08/16/25 @ 01:42 by Octaviano Magallon MD) Congestive heart failure (Acute) Cellulitis of leg, right (Acute) Cellulitis and abscess of foot (Acute) Shortness of breath (Acute) Anemia (Acute) Drug-induced liver injury Symptomatic anemia SOB (shortness of breath) Pancytopenia due to chemotherapy Metastatic cancer Sofie-Mueller tear Acute on chronic blood loss anemia UGIB (upper gastrointestinal bleed) History of lung cancer (Acute) Thrombocytopenia (Acute) Anemia (Acute) Vomiting of blood (Acute) Acute bronchitis (Acute) Closed head injury (Acute) Concussion (Acute) Concussion (Acute) Occipital scalp laceration (Acute) Stented coronary artery Upper respiratory infection (Acute) Work related injury (Acute) Renal colic (Acute) Bilateral ureteral calculi (Acute) Hydronephrosis (Acute) Acute UTI (Acute) Leukocytosis (Acute) Melanoma Mohs x2 ANDRES (acute kidney injury) Encounter for pre-operative examination Left ureteral calculus Benign prostatic hyperplasia (BPH) with straining on urination Encounter for pre-operative examination Encounter for pre-operative examination Nephrolithiasis Pneumonia (Acute) Hypoxic (Acute) Hypomagnesemia (Acute) Acute hypoxemic respiratory failure HTN (hypertension) Paroxysmal atrial fibrillation 2010 had episode after back surgery and no problems since. Zio monitoring in Jun 2019 showed no evidence of recurrent atrial fibrillation follow with Dr. Carroll/ Laura Bladder cancer dx'd 2007. 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 Surgical History History of urologic surgery History of cancer surgery bladder History of cystoscopy History of tooth extraction History of lithotripsy recent--08/21/21 [place] History of cardiac cath 2017 > 1 STENT > [facility] Hx of colonoscopy History of lumbar spinal fusion 2010 1968 Family History Father Diabetes Grandmother (Paternal) Diabetes Other Cancer Coronary heart disease Hypertension No family history of adverse response to anesthesia Social History Smoking Status: Current every day smoker Tobacco Type: Cigarettes Cigarettes Per Day: 3-4; Second Hand Exposure: Yes; Do You Dip or Chew Tobacco: No; Hx Alcohol Use: No Hx Substance Use: No Preferred Language: Belarusian Communication Ability: Effective Shredder Picker Required: No Beliefs That Will Affect Care: None marital status: Current Living Situation: Spouse Current Living Situation Comment: with Feels Safe at Home: Yes Safety Concerns: Feels Safe At This Time Assistive Devices: Denture - Upper, Denture - Lower, Glasses and Walker Assistive Devices Comment: walker after chemo treatments Review of Systems Review of Systems: As per HPI, all other systems reviewed and negative Physical Exam Physical Exam: GENERAL: Comfortable, pleasant SKIN: Pallor, warm HEENT: Bespectacled, pale palpebral conjunctivae, no ptosis, moist buccal muco sa, nasal cannula in place NECK : Supple, no tenderness CHEST : Decreased breath sounds, no tenderness HEART : RRR, systolic murmur ABDOMEN: Some distention, nontender EXTREMITIES : Minimal RLE swelling without tenderness, no other conspicuous deformities noted NEUROLOGIC : Coherent, no facial asymmetry, no other gross focality Results & Data Results & Data Vital Signs (Past 12 Hours) Vital Signs Temp Pulse Pulse Resp BP BP Pulse Ox 08/15/25 20:27 95 08/15/25 20:12 63 18 93 08/15/25 20:00 75 21 95 08/15/25 20:00 170/81 H 08/15/25 20:00 170/81 H 08/15/25 20:00 170/81 H 08/15/25 20:00 170/81 H 08/15/25 20:00 170/81 H 08/15/25 19:51 85 20 90 08/15/25 19:42 59 L 19 93 08/15/25 19:30 64 20 93 08/15/25 19:21 68 23 90 08/15/25 19:12 62 17 92 08/15/25 19:00 159/67 H 08/15/25 19:00 159/67 H 08/15/25 19:00 159/67 H 08/15/25 19:00 159/67 H 08/15/25 19:00 159/67 H 08/15/25 19:00 58 L 12 92 08/15/25 18:51 62 20 93 08/15/25 18:42 60 17 93 08/15/25 18:30 59 L 19 94 08/15/25 18:22 63 08/15/25 18:21 62 11 L 94 08/15/25 18:18 67 12 95 08/15/25 18:15 70 20 166/69 H 93 08/15/25 18:13 166/69 H 08/15/25 16:31 36.7 C 68 19 135/74 96 08/15/25 16:31 O2 Del Method O2 Flow Rate 08/15/25 20:27 Nasal Cannula 2 08/15/25 20:12 08/15/25 20:00 08/15/25 20:00 08/15/25 20:00 08/15/25 20:00 08/15/25 20:00 08/15/25 20:00 08/15/25 19:51 08/15/25 19:42 08/15/25 19:30 08/15/25 19:21 08/15/25 19:12 08/15/25 19:00 08/15/25 19:00 08/15/25 19:00 08/15/25 19:00 08/15/25 19:00 08/15/25 19:00 08/15/25 18:51 08/15/25 18:42 08/15/25 18:30 08/15/25 18:22 08/15/25 18:21 08/15/25 18:18 08/15/25 18:15 Room Air 08/15/25 18:13 08/15/25 16:31 Room Air 08/15/25 16:31 Room Air Laboratory Results Laboratory Results WBC 5.46 K/ul (4.8-10.8) 08/15/25 16:48 RBC 2.43 M/uL (4.70-6.10) L 08/15/25 16:48 Hgb 9.0 g/dL (14.0-18.0) L 08/15/25 16:48 Hct 27.2 % (42.0-52.0) L 08/15/25 16:48 MCV 111.9 fL (80.0-100.0) H 08/15/25 16:48 MCH 37.0 pg (25.0-34.0) H 08/15/25 16:48 MCHC 33.1 g/dL (32.0-36.0) 08/15/25 16:48 RDW Std Deviation 65.1 fL (36.4-46.3) H 08/15/25 16:48 RDW Coeff of Ele 16.6 % (11.5-14.5) H 08/15/25 16:48 Plt Count 168 K/uL (130-400) 08/15/25 16:48 MPV 12.4 fL (9.4-12.4) 08/15/25 16:48 Immature Gran % (Auto) 0.5 % 08/15/25 16:48 Neut % (Auto) 56.1 % 08/15/25 16:48 Lymph % (Auto) 31.5 % 08/15/25 16:48 [place] % (Auto) 10.6 % 08/15/25 16:48 Eos % (Auto) 1.3 % 08/15/25 16:48 Baso % (Auto) 0.0 % 08/15/25 16:48 Neut # (Auto) 3.06 K/uL (1.40-6.50) 08/15/25 16:48 Lymph # (Auto) 1.72 K/uL (1.20-3.40) 08/15/25 16:48 [place] # (Auto) 0.58 K/uL (0.11-0.59) 08/15/25 16:48 Eos # (Auto) 0.07 K/uL (0.00-0.50) 08/15/25 16:48 Baso # (Auto) 0.00 K/uL (0.00-0.20) 08/15/25 16:48 Immature Gran # (Auto) 0.03 K/uL (0.01-0.20) 08/15/25 16:48 Hypersegmented Neuts 1+ 08/15/25 16:48 Polychromasia 2+ 08/15/25 16:48 Anisocytosis Present 08/15/25 16:48 Acanthocytes (Spur) 2+ 08/15/25 16:48 PT 12.6 Seconds (9.0-12.0) H 08/15/25 16:48 INR 1.2 (0.9-1.1) H 08/15/25 16:48 APTT 29 Seconds (21-31) 08/15/25 16:48 PTT Ratio 1.1 08/15/25 16:48 Sodium 149 mmol/L (136-145) H 08/15/25 16:48 Potassium 3.7 mmol/L (3.5-5.1) 08/15/25 16:48 Chloride 115 mmol/L (98-107) H 08/15/25 16:48 Carbon Dioxide 26 mmol/L (21-32) 08/15/25 16:48 Anion Gap 8 (3-11) 08/15/25 16:48 BUN 18 mg/dl (6-23) 08/15/25 16:48 Creatinine 1.45 mg/dl (0.6-1.4) H 08/15/25 16:48 Est Cr Clr Drug Dosing 38.6 ml/min 08/15/25 16:48 eGFR 49.02 08/15/25 16:48 BUN/Creatinine Ratio 12.4 (10-20) 08/15/25 16:48 Glucose 107 mg/dl (70-99(Fasting)) H 08/15/25 16:48 Calcium 8.9 mg/dl (8.6-10.3) 08/15/25 16:48 Magnesium 1.3 mg/dl (1.7-2.4) L 08/15/25 16:48 Total Bilirubin 0.6 mg/dl (0.2-1.0) 08/15/25 16:48 AST 55 U/L (13-39) H 08/15/25 16:48 ALT 45 U/L (7-52) 08/15/25 16:48 Alkaline Phosphatase 127 U/L (34-104) H 08/15/25 16:48 Troponin I High Sens 18.1 pg/ml (0-20) 08/15/25 16:48 B-Natriuretic Peptide 1180 pg/ml (0-100) H 08/15/25 16:48 Total Protein 6.4 gm/dl (6.0-8.3) 08/15/25 16:48 Albumin 3.2 gm/dl (3.4-5.0) L 08/15/25 16:48 Globulin 3.2 gm/dl (2.5-4.0) 08/15/25 16:48 Albumin/Globulin Ratio 1.0 (0.9-2) 08/15/25 16:48 Impressions Chest X-Ray 08/15/25 16:35 Clinical History: Chest pain and shortness of breath Technique: A frontal view of the chest was obtained Comparison is made to the prior examination dated 06/21/2025 Findings: There is suspected mild pulmonary edema. The heart size is within normal limits. No definite pneumothorax is seen. There are small bilateral pleural effusions There are old healed right rib fractures. There is a right chest wall port with its tip in the lower SVC Impression: Mild pulmonary edema and small bilateral pleural effusions ACT 112: Positive. There are findings on this exam that require communication between the performing entity and the patient following Patient Test Result Information Act ([place] ACT 112) guidelines. Electronically signed by Sandeep Norris 08-15-2025 6:10 PM Diagnostic Findings EKG as per my interpretation :Rate 65, NSR, normal axis, nonspecific T wave abnormalities
[2025-08-16] MEDS ORDERED: DEXTROSE 50% 50 ML SYRINGE IV PRN (00:22)
[2025-08-16] MEDS ORDERED: GLUCOSE 40% GEL 15 GM TUBE PO PRN (00:22)
[2025-08-16] MEDS ORDERED: GLUCAGON FOR INJ 1 MG VIAL SQ PRN (00:22)
[2025-08-16] MEDS ORDERED: CARBOHYDRATES FOR HYPOGLYCEMIA PO PRN (00:22)
[2025-08-16] MEDS ORDERED: GLUCOSE 10 TAB/TUBE PO PRN (00:22)
[2025-08-16] MEDS: MAGNESIUM SULFATE / D5W 1 GM/100 ML BAG IV SCH (00:25)
[2025-08-16] MEDS: INSULIN ASPART PER UNIT CHARGE SC SCH (00:37)
--- NOTE | 2025-08-16 01:32 | Emergency Department Note ---
History of Present Illness General Chief Complaint: Shortness of Breath/Dyspnea Stated Complaint: SOB PAST 2-3 DAYS, WORSE TODAY Time Seen by Provider: 08/15/25 18:59 History of Present Illness Provider Complaint: shortness of breath Onset (ago): day(s) (3) Consistency/Duration: + progressively worsening Relieved By: + upright position Exacerbated By: + exertion Context: + recent illness Known history of: congestive heart failure Associated symptoms: + orthopnea and + chest congestion; no chest pain, no fever, no cough, no wheezing, no sputum production or no hemoptysis Treatment prior to arrival: none Home Medications Medication Instructions Recorded Confirmed Type atorvastatin 80 mg tablet 80 mg PO DAILY 04/22/20 08/15/25 History cholecalciferol (vitamin D3) 25 1,000 unit PO QAM 04/22/20 08/15/25 History mcg (1,000 unit) capsule (Vitamin D3) epinephrine 0.3 mg/0.3 mL 0.3 mg IM DIRECTED PRN Allergic 04/22/20 08/15/25 History injection, auto-injector Reaction metformin 500 mg tablet 500 mg PO BIDM 04/22/20 08/15/25 History nitroglycerin 0.4 mg sublingual 0.4 mg sublingual DIRECTED PRN 04/22/20 08/15/25 History tablet (Nitrostat) Chest Pain tamsulosin 0.4 mg capsule 0.4 mg PO QAM 04/22/20 08/15/25 History isosorbide mononitrate 30 mg 30 mg PO QAM 02/03/23 08/15/25 History tablet,extended release 24 hr lisinopril 2.5 mg tablet 2.5 mg PO QAM 02/03/23 08/15/25 History albuterol sulfate 90 mcg/actuation 2 inh inhalation Q4H PRN shortness 05/18/25 08/15/25 History aerosol inhaler of breath or wheezing budesonide 160 mcg-glycopyr 9 2 inh inhalation BID 05/18/25 08/15/25 History mcg-formot 4.8 mcg/actuation HFA inhaler (Breztri Aerosphere) folic acid 1 mg tablet 1 mg PO QAM 05/18/25 08/15/25 History prochlorperazine maleate 10 mg 10 mg PO Q6H PRN Nausea And 05/18/25 08/15/25 History tablet Vomiting trazodone 50 mg tablet 50 mg PO HS 05/18/25 08/15/25 History pantoprazole 40 mg tablet,delayed 40 mg PO BID #60 tabs 05/21/25 08/15/25 Rx release B-complex with vitamin C 1 cap PO QAM 06/21/25 08/15/25 History aspirin 81 mg tablet,delayed 81 mg PO QAM 06/21/25 08/15/25 History release dexamethasone 4 mg tablet 8 mg PO DIRECTED PRN DAYS 2,3,4 06/21/25 08/15/25 History OF CHEMO lidocaine-prilocaine 2.5 %-2.5 % 1 applic topical DIRECTED PRN 06/21/25 08/15/25 History topical cream ACCESSING MEDIPORT loperamide 1 mg/7.5 mL oral liquid 0.5 mg PO DAILY PRN Diarrhea 06/21/25 08/15/25 History (Imodium A-D) loratadine 10 mg tablet (Claritin) 10 mg PO DAILY PRN START DAY OF 06/21/25 08/15/25 History CHEMO X 5 DAYS. metoprolol succinate 50 mg 50 mg PO BID 06/21/25 08/15/25 History tablet,extended release 24 hr ondansetron HCl 8 mg tablet 8 mg PO Q8H PRN NAUSEA/VOMITING 06/21/25 08/15/25 History oxycodone 5 mg tablet 5 mg PO Q4H PRN pain #10 tabs 06/23/25 08/15/25 Rx L.acidop,casei,lactis,rham-B.lact,zac 1 cap PO QAM 08/15/25 08/15/25 History 625 mg (10 billion cell) capsule (Advanced Probiotic) doxycycline hyclate 100 mg capsule 100 mg PO AMHS 08/15/25 08/15/25 History Allergies Allergy/AdvReac Type Severity Reaction Status Date / Time bee venom protein (honey bee) Allergy Severe ANAPHYLAXIS Verified 06/21/25 20:53 cephalexin [From Keflex] Allergy Unknown CAN'T Verified 06/21/25 20:53 MD CHIDI ADDED TO LIST Past Med/Surg History Problem List (Updated 08/16/25 @ 01:42 by Octaviano Magallon MD) Congestive heart failure (Acute) Cellulitis of leg, right (Acute) Cellulitis and abscess of foot (Acute) Shortness of breath (Acute) Anemia (Acute) Drug-induced liver injury Symptomatic anemia SOB (shortness of breath) Pancytopenia due to chemotherapy Metastatic cancer Sofie-Mueller tear Acute on chronic blood loss anemia UGIB (upper gastrointestinal bleed) History of lung cancer (Acute) Thrombocytopenia (Acute) Anemia (Acute) Vomiting of blood (Acute) Acute bronchitis (Acute) Closed head injury (Acute) Concussion (Acute) Concussion (Acute) Occipital scalp laceration (Acute) Stented coronary artery Upper respiratory infection (Acute) Work related injury (Acute) Renal colic (Acute) Bilateral ureteral calculi (Acute) Hydronephrosis (Acute) Acute UTI (Acute) Leukocytosis (Acute) Melanoma Mohs x2 ANDRES (acute kidney injury) Encounter for pre-operative examination Left ureteral calculus Benign prostatic hyperplasia (BPH) with straining on urination Encounter for pre-operative examination Encounter for pre-operative examination Nephrolithiasis Pneumonia (Acute) Hypoxic (Acute) Hypomagnesemia (Acute) Acute hypoxemic respiratory failure HTN (hypertension) Paroxysmal atrial fibrillation 2010 had episode after back surgery and no problems since. Zio monitoring in Jun 2019 showed no evidence of recurrent atrial fibrillation follow with Dr. Carroll/ [facility] Bladder cancer dx'd 2007. BCG treatment + surgery CAD (coronary artery disease) Follows with [facility] S/p DULCE to ramus that had collaterals to the right on 06/2017 COPD (chronic obstructive pulmonary disease) Diabetes mellitus, type II NIDDM Medical History PAD (peripheral artery disease) Mild bilateral ICA disease (per 2019 carotid duplex) Arterial doppler of LE showed mild PAD on right side (April 2021) History of Mohs micrographic surgery for skin cancer History of gout History of melanoma Hyperlipidemia BPH (benign prostatic hyperplasia) Myocardial Infarction 1996 > anterior wall SC Kidney stone 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 Surgical History History of urologic surgery History of cancer surgery bladder History of cystoscopy History of tooth extraction History of lithotripsy recent--08/21/21 @ [place] History of cardiac cath 2017 > 1 STENT > [facility] Hx of colonoscopy History of lumbar spinal fusion 2010 1968 Family History Father Diabetes Grandmother (Paternal) Diabetes Other Cancer Coronary heart disease Hypertension No family history of adverse response to anesthesia Social History Smoking Status: Current every day smoker Tobacco Type: Cigarettes Cigarettes Per Day: 3-4; Second Hand Exposure: Yes; Do You Dip or Chew Tobacco: No; Hx Alcohol Use: No Hx Substance Use: No Preferred Language: Indonesian Communication Ability: Effective Senior Quality Methods Specialist Required: No Beliefs That Will Affect Care: None marital status: Current Living Situation: Spouse Current Living Situation Comment: with Feels Safe at Home: Yes Safety Concerns: Feels Safe At This Time Assistive Devices: Denture - Upper, Denture - Lower, Glasses and Walker Assistive Devices Comment: walker after chemo treatments Physical Exam 2 Vital Signs: Vital Signs - 24 hr 08/15/25 16:31 08/15/25 16:31 08/15/25 18:13 Temperature 36.7 C Temperature Source Skin Pulse Rate 68 Pulse Rate [Apical ] Pulse Rate from Sp O2 Sensor Respiratory Rate 19 Respiratory Effort / Characteristics Non-Labored Sponta neous Short of Latanya ath Non-Labored Sponta neous Respiratory Depth Normal Normal Respiratory Patter n Regular Regular Blood Pressure 135/74 166/69 H Blood Pressure [Ri ght Arm] Blood Pressure Belén n 94 117 Blood Pressure Belén n [Right Arm] Pulse Oximetry 96 Oxygen Delivery Me thod Room Air Room Air Oxygen Flow Rate Sepsis Recent Feve r Within 48 Hours No Sepsis New/Unexpla ined Change in Men vonda Status N/A Sepsis Action Take n by Nursing No Action Required 08/15/25 18:15 08/15/25 18:18 08/15/25 18:21 Temperature Temperature Source Pulse Rate 67 62 Pulse Rate [Apical ] 70 Pulse Rate from Sp O2 Sensor 64 59 L Respiratory Rate 20 12 11 L Respiratory Effort / Characteristics Respiratory Depth Respiratory Patter n Blood Pressure Blood Pressure [Ri ght Arm] 166/69 H Blood Pressure Belén n Blood Pressure Belén n [Right Arm] 101 Pulse Oximetry 93 95 94 Oxygen Delivery Me thod Room Air Oxygen Flow Rate Sepsis Recent Feve r Within 48 Hours Sepsis New/Unexpla ined Change in Men vonda Status Sepsis Action Take n by Nursing 08/15/25 18:22 08/15/25 18:30 08/15/25 18:42 Temperature Temperature Source Pulse Rate 63 59 L 60 Pulse Rate [Apical ] Pulse Rate from Sp O2 Sensor 59 L 61 Respiratory Rate 19 17 Respiratory Effort / Characteristics Respiratory Depth Respiratory Patter n Blood Pressure Blood Pressure [Ri ght Arm] Blood Pressure Belén n Blood Pressure Belén n [Right Arm] Pulse Oximetry 94 93 Oxygen Delivery Me thod Oxygen Flow Rate Sepsis Recent Feve r Within 48 Hours Sepsis New/Unexpla ined Change in Men vonda Status Sepsis Action Take n by Nursing 08/15/25 18:51 08/15/25 19:00 08/15/25 19:00 Temperature Temperature Source Pulse Rate 62 58 L Pulse Rate [Apical ] Pulse Rate from Sp O2 Sensor 62 57 L Respiratory Rate 20 12 Respiratory Effort / Characteristics Respiratory Depth Respiratory Patter n Blood Pressure 159/67 H Blood Pressure [Ri ght Arm] Blood Pressure Belén n 115 Blood Pressure Belén n [Right Arm] Pulse Oximetry 93 92 Oxygen Delivery Me thod Oxygen Flow Rate Sepsis Recent Feve r Within 48 Hours Sepsis New/Unexpla ined Change in Men vonda Status Sepsis Action Take n by Nursing 08/15/25 19:00 08/15/25 19:00 08/15/25 19:00 Temperature Temperature Source Pulse Rate Pulse Rate [Apical ] Pulse Rate from Sp O2 Sensor Respiratory Rate Respiratory Effort / Characteristics Respiratory Depth Respiratory Patter n Blood Pressure 159/67 H 159/67 H 159/67 H Blood Pressure [Ri ght Arm] Blood Pressure Belén n 115 115 115 Blood Pressure Belén n [Right Arm] Pulse Oximetry Oxygen Delivery Me thod Oxygen Flow Rate Sepsis Recent Feve r Within 48 Hours Sepsis New/Unexpla ined Change in Men vonda Status Sepsis Action Take n by Nursing 08/15/25 19:00 08/15/25 19:12 08/15/25 19:21 Temperature Temperature Source Pulse Rate 62 68 Pulse Rate [Apical ] Pulse Rate from Sp O2 Sensor 62 69 Respiratory Rate 17 23 Respiratory Effort / Characteristics Respiratory Depth Respiratory Patter n Blood Pressure 159/67 H Blood Pressure [Ri ght Arm] Blood Pressure Belén n 115 Blood Pressure Belén n [Right Arm] Pulse Oximetry 92 90 Oxygen Delivery Me thod Oxygen Flow Rate Sepsis Recent Feve r Within 48 Hours Sepsis New/Unexpla ined Change in Men vonda Status Sepsis Action Take n by Nursing 08/15/25 19:30 08/15/25 19:42 08/15/25 19:51 Temperature Temperature Source Pulse Rate 64 59 L 85 Pulse Rate [Apical ] Pulse Rate from Sp O2 Sensor 60 60 77 Respiratory Rate 20 19 20 Respiratory Effort / Characteristics Respiratory Depth Respiratory Patter n Blood Pressure Blood Pressure [Ri ght Arm] Blood Pressure Belén n Blood Pressure Belén n [Right Arm] Pulse Oximetry 93 93 90 Oxygen Delivery Me thod Oxygen Flow Rate Sepsis Recent Feve r Within 48 Hours Sepsis New/Unexpla ined Change in Men vonda Status Sepsis Action Take n by Nursing 08/15/25 20:00 08/15/25 20:00 08/15/25 20:00 Temperature Temperature Source Pulse Rate Pulse Rate [Apical ] Pulse Rate from Sp O2 Sensor Respiratory Rate Respiratory Effort / Characteristics Respiratory Depth Respiratory Patter n Blood Pressure 170/81 H 170/81 H 170/81 H Blood Pressure [Ri ght Arm] Blood Pressure Belén n 117 117 117 Blood Pressure Belén n [Right Arm] Pulse Oximetry Oxygen Delivery Me thod Oxygen Flow Rate Sepsis Recent Feve r Within 48 Hours Sepsis New/Unexpla ined Change in Men vonda Status Sepsis Action Take n by Nursing 08/15/25 20:00 08/15/25 20:00 08/15/25 20:00 Temperature Temperature Source Pulse Rate 75 Pulse Rate [Apical ] Pulse Rate from Sp O2 Sensor 75 Respiratory Rate 21 Respiratory Effort / Characteristics Respiratory Depth Respiratory Patter n Blood Pressure 170/81 H 170/81 H Blood Pressure [Ri ght Arm] Blood Pressure Belén n 117 117 Blood Pressure Belén n [Right Arm] Pulse Oximetry 95 Oxygen Delivery Me thod Oxygen Flow Rate Sepsis Recent Feve r Within 48 Hours Sepsis New/Unexpla ined Change in Men vonda Status Sepsis Action Take n by Nursing 08/15/25 20:12 08/15/25 20:21 08/15/25 20:27 Temperature Temperature Source Pulse Rate 63 71 Pulse Rate [Apical ] Pulse Rate from Sp O2 Sensor 58 L 72 Respiratory Rate 18 28 H Respiratory Effort / Characteristics Respiratory Depth Respiratory Patter n Blood Pressure Blood Pressure [Ri ght Arm] Blood Pressure Belén n Blood Pressure Belén n [Right Arm] Pulse Oximetry 93 82 L 95 Oxygen Delivery Me thod Nasal Cannula Oxygen Flow Rate 2 Sepsis Recent Feve r Within 48 Hours Sepsis New/Unexpla ined Change in Men vonda Status Sepsis Action Take n by Nursing 08/15/25 20:30 Temperature Temperature Source Pulse Rate 59 L Pulse Rate [Apical ] Pulse Rate from Sp O2 Sensor 59 L Respiratory Rate 10 L Respiratory Effort / Characteristics Respiratory Depth Respiratory Patter n Blood Pressure Blood Pressure [Ri ght Arm] Blood Pressure Belén n Blood Pressure Belén n [Right Arm] Pulse Oximetry 96 Oxygen Delivery Me thod Oxygen Flow Rate Sepsis Recent Feve r Within 48 Hours Sepsis New/Unexpla ined Change in Men vonda Status Sepsis Action Take n by Nursing Physical Exam: Physical Exam GENERAL: oriented to person, place, and time. appears well-developed and well- nourished. HENT: Exam performed. - Head: Normocephalic and atraumatic. EYES: Conjunctivae and EOM are normal. Right eye exhibits no discharge. Left eye exhibits no discharge. No scleral icterus. NECK: Normal range of motion. Neck supple. No JVD present. CV: Normal rate, regular rhythm, normal heart sounds and intact distal pulses. 1+ pitting edema of the bilateral lower extremities. Palpable radial pulses bue. PULM/CHEST: Effort normal and breath sounds normal. No respiratory distress. No stridor. no wheezes. no rales. ABD: The abdomen is soft. There is no tenderness. NEURO: Motor and sensation grossly intact. SKIN: Mild erythema of the right lower extremity. No warmth. Nikolsky negative. No vesicular lesions. No pruritic lesions. No particular lesions. Course Course 1858: The patient was evaluated in room B7. A complete history and physical exam was performed Administered Medications Amlodipine Besylate (Amlodipine Besylate 5 Mg Tab) 2.5 mg PO HS CHANELLE Stop: 09/14/25 22:14 Last Admin: 08/15/25 22:50 Dose: 2.5 mg Documented By: melba Magnesium Sulfate/Dextrose (Magnesium Sulfate / D5w) 1 gm in 100 mls @ 50 mls/hr IV Q2H CHANELLE Stop: 08/16/25 04:14 Last Admin: 08/16/25 00:25 Dose: 50 mls/hr Documented By: ADAM Insulin Aspart (Insulin Aspart Per Unit Charge) 0 units SC ACHS CHANELLE Stop: 09/15/25 00:21 Last Admin: 08/16/25 00:37 Dose: Not Given Documented By: ADAM Trazodone HCl (Trazodone Hcl 50 Mg Tab) 50 mg PO HS CHANELLE Stop: 09/14/25 22:14 Last Admin: 08/15/25 22:51 Dose: 50 mg Documented By: melba Discontinued Medications Furosemide (Furosemide 40 Mg/4 Ml Vial) 40 mg IV ONE ONE Stop: 08/15/25 20:00 Last Admin: 08/15/25 20:06 Dose: 40 mg Documented By: GARIMA Albumin Human (Albumin 25%) 12.5 gm in 50 mls @ 50 mls/hr IV ONE STA Stop: 08/15/25 23:12 Last Infusion: 08/15/25 23:51 Dose: Infused Documented By: Admin: 08/15/25 22:52 Dose: 50 mls/hr Documented By: melba Metoprolol Tartrate (Metoprolol Tartrate 1 Mg/Ml Vial) 2.5 mg IV NOW STA Stop: 08/15/25 20:24 Last Admin: 08/15/25 20:42 Dose: 2.5 mg Documented By: melba Potassium Chloride (Potassium Chloride Crtab 20 Meq Tabcr) 40 meq PO NOW STA Stop: 08/15/25 20:26 Last Admin: 08/15/25 20:41 Dose: 40 meq Documented By: melba Medical Decision Making Medical Records Attestation: I reviewed the patient's medical records. Patient was admitted from June 26 to July 01, 2025 for right leg cellulitis. Patient was discharged with prescription cefuroxime. Laboratory Data Attestation: I reviewed the patient's lab results. 08/15/25 16:48 08/15/25 16:48 Lab Results 08/15/25 Range/Units 16:48 WBC 5.46 (4.8-10.8) K/ul RBC 2.43 L (4.70-6.10) M/uL Hgb 9.0 L (14.0-18.0) g/dL Hct 27.2 L (42.0-52.0) % MCV 111.9 H (80.0-100.0) fL MCH 37.0 H (25.0-34.0) pg MCHC 33.1 (32.0-36.0) g/dL RDW Std Deviation 65.1 H (36.4-46.3) fL RDW Coeff of Ele 16.6 H (11.5-14.5) % Plt Count 168 (130-400) K/uL MPV 12.4 (9.4-12.4) fL Immature Gran % (Auto) 0.5 % Neut % (Auto) 56.1 % Lymph % (Auto) 31.5 % Avery % (Auto) 10.6 % Eos % (Auto) 1.3 % Baso % (Auto) 0.0 % Neut # (Auto) 3.06 (1.40-6.50) K/uL Lymph # (Auto) 1.72 (1.20-3.40) K/uL Avery # (Auto) 0.58 (0.11-0.59) K/uL Eos # (Auto) 0.07 (0.00-0.50) K/uL Baso # (Auto) 0.00 (0.00-0.20) K/uL Immature Gran # (Auto) 0.03 (0.01-0.20) K/uL Hypersegmented Neuts 1+ Polychromasia 2+ Anisocytosis Present Acanthocytes (Spur) 2+ PT 12.6 H (9.0-12.0) Seconds INR 1.2 H (0.9-1.1) APTT 29 (21-31) Seconds PTT Ratio 1.1 Sodium 149 H (136-145) mmol/L Potassium 3.7 (3.5-5.1) mmol/L Chloride 115 H (98-107) mmol/L Carbon Dioxide 26 (21-32) mmol/L Anion Gap 8 (3-11) BUN 18 (6-23) mg/dl Creatinine 1.45 H (0.6-1.4) mg/dl Est Cr Clr Drug Dosing 38.6 ml/min eGFR 49.02 BUN/Creatinine Ratio 12.4 (10-20) Glucose 107 H (70-99(Fasting)) mg/dl Calcium 8.9 (8.6-10.3) mg/dl Magnesium 1.3 L (1.7-2.4) mg/dl Total Bilirubin 0.6 (0.2-1.0) mg/dl AST 55 H (13-39) U/L ALT 45 (7-52) U/L Alkaline Phosphatase 127 H (34-104) U/L Troponin I High Sens 18.1 (0-20) pg/ml B-Natriuretic Peptide 1180 H (0-100) pg/ml Total Protein 6.4 (6.0-8.3) gm/dl Albumin 3.2 L (3.4-5.0) gm/dl Globulin 3.2 (2.5-4.0) gm/dl Albumin/Globulin Ratio 1.0 (0.9-2) Imaging Data Attestation: I personally reviewed and interpreted this imaging study as follows: My Impression: Chest x-ray: Pulmonary edema Radiologist's Impression: Chest X-Ray 08/15/25 16:35 Clinical History: Chest pain and shortness of breath Technique: A frontal view of the chest was obtained Comparison is made to the prior examination dated 06/21/2025 Findings: There is suspected mild pulmonary edema. The heart size is within normal limits. No definite pneumothorax is seen. There are small bilateral pleural effusions There are old healed right rib fractures. There is a right chest wall port with its tip in the lower SVC Impression: Mild pulmonary edema and small bilateral pleural effusions ACT 112: Positive. There are findings on this exam that require communication between the performing entity and the patient following Patient Test Result Information Act ([place] ACT 112) guidelines. Electronically signed by Sandeep Norris 08-15-2025 6:10 PM ECG Data Attestation: I personally reviewed and interpreted this ECG as follows: Interpretation: Sinus rhythm with a rate of 67. [place] QRS and QTc intervals within normal limits. No ST elevation or ST depression. MDM Narrative Cardiac monitoring: An order was placed for continuous cardiac monitoring. The monitor shows a rate of 70 with sinus rhythm interpreted by me Patient was seen during a time of extreme volume and extreme acuity. Nursing triage protocols were initiated labs and imaging was conducted by protocol in the triage area. Labs show white blood cell count 5.46 hemoglobin 9 sodium 149 creatinine 1.45 BNP 1180 troponin 18.1. Imaging shows the patient is fluid overloaded. Patient be treated with Lasix and admitted to the [facility] team. Impression & Plan Congestive heart failure Discharge Plan Visit Data Chief Complaint: Shortness of Breath/Dyspnea Stated Complaint: SOB PAST 2-3 DAYS, WORSE TODAY ED Provider: Octaviano Magallon Discharge Problem: Congestive heart failure Patient Disposition: Admitted As Inpatient Condition: Fair Discharge Instructions Interventions: ED Discharge Assessment Last Done: 08/15/25 23:47
[2025-08-16] MEDS ORDERED: ACETAMINOPHEN 500 MG TAB PO PRN (05:02)
[2025-08-16 05:33] LABS: Hematocrit (blood only) 23.9 % (42.0-52.0); Hemoglobin 7.9 g/dL (14.0-18.0); Immature Granulocytes # (auto) 0.02 K/uL (0.01-0.20); Immature Granulocytes % (auto) 0.4 %; Mean Corpuscular Hemoglobin 36.6 pg (25.0-34.0); Mean Corpuscular Volume 110.6 fL (80.0-100.0); Platelet Count 131 K/uL (130-400); RDW Standard Deviation 63.3 fL (36.4-46.3); Red Blood Count 2.16 M/uL (4.70-6.10); White Blood Count 4.51 K/ul (4.8-10.8)
[2025-08-16 05:43] LABS: Base Excess VBG 6.6 mEq/L; HCO3 VBG 32 mmol/L; Oxygen Saturation VBG < 60.0 %; PCO2 VBG 47 mmHg (38-50); PO2 VBG 34 mmHg; pH VBG 7.44 (7.36-7.41)
[2025-08-16 05:49] LABS: Alanine Aminotransferase 43.0 U/L (7-52); Albumin Level 2.7 gm/dl (3.4-5.0); Alkaline Phosphatase 123.0 U/L (34-104); Anion Gap 6.0 (3-11); Bilirubin,Total 0.7 mg/dl (0.2-1.0); Blood Urea Nitrogen 18.0 mg/dl (6-23); Calcium 8.6 mg/dl (8.6-10.3); Carbon Dioxide 29.0 mmol/L (21-32); Chloride 113.0 mmol/L (98-107); Creatinine Clr Calc Pharmacy 40.9 ml/min; Glucose 108.0 mg/dl (70-99(Fasting)); Magnesium 2.0 mg/dl (1.7-2.4); Potassium 3.7 mmol/L (3.5-5.1); Sodium 148.0 mmol/L (136-145); Total Protein 5.2 gm/dl (6.0-8.3)
[2025-08-16 06:55] LABS: Acanthocytes 1+; Macrocytosis Present
--- NOTE | 2025-08-16 08:15 | Ultrasound Report ---
EXAM: US liver CLINICAL HISTORY: abn lfts TECHNIQUE: Limited ultrasound of the liver and gallbladder was performed in greyscale and Doppler. Multiple images were obtained in transverse and longitudinal planes. COMPARISON: Prior CT scan abdomen pelvis with contrast dated 05/18/2025 was reviewed. FINDINGS: Liver: Normal in size measuring upto 13.0 cm, however appears sightly echogenic with homogeneous parenchymal echotexture, suggestive of mild fatty changes. At least two hypoechoic lesions with echogenic centers are seen interval developed in right lobe, larger one measures upto 0.8 cm, and the smaller one measures upto 0.6 cm(new finding). Hepatic vasculature appears unremarkable. Questionable minimal streak of perihepatic free fluid noted. Gallbladder: Gallbladder is optimally distended; however appears mildly thickened with wall thickness measuring upto 2.3 mm, possibly due to partial contraction/reactivity(unchanged) No gallstones, definite pericholecystic fluid or positive Figueroa's sign noted to suggest acute cholecystitis. Biliary Tree:. Visualized common bile duct appears prominent at the level of waqar hepatis measuring upto 6.1 mm(according to the tech). Right Kidney: Visualized right kidney shows interval mild to moderate hydronephrosis, and visualized proximal hydroureter(new). Redemonstration of multiple variable-sized cortical cysts involving the right kidney, largest one measures upto 3.3 x 3.7 x 3.3cm. Additional findings: Redemonstration of mild right-sided pleural effusion. IMPRESSION: 1. Grade 1 fatty changes in liver with interval development of at least two hypoechoic lesions with echogenic centers in the right lobe. Correlation by CT scan abdomen triphasic study is warranted for their further characterization. 2. Prominent visualized common bile duct. Correlation with MRI MRCP/ERCP is warranted to exclude the suspicion of its distal obstruction if indicated. 3. Interval mild to moderate hydronephrosis and visualized proximal hydroureter in the right kidney. Sonographic / CT scan correlation is warranted to rule out the suspicion of distal right ureter obstruction. 4. Redemonstration of variable-sized right renal cortical cysts(unchanged). 5. Redemonstration of mild right-sided pleural effusion(unchanged). 6. Questionable minimal streak of perihepatic free fluid noted. 7. No any other significant interval changes detected. Electronically signed by Jorge Villanueva 08-16-2025 08:15 AM
--- NOTE | 2025-08-16 08:26 | XRay Report ---
EXAM: XR chest 1V portable CLINICAL HISTORY: chf ffup TECHNIQUE: An X-ray image of the chest is obtained in AP projection. COMPARISON: Prior X-ray dated 08/15/2025 for comparison. FINDINGS: Lines : A port-a-cath is seen in situ, with its tip in a normal position. Pulmonary Parenchyma: Unchanged mild haziness in bilateral lower zones. Mild interval increase in left-sided pleural effusion. Minimal blunting of right CP angle, slight interval improvement. No new consolidation or focal opacities are identified. Heart and Mediastinum: Heart size and shape are normal No mediastinal widening or hilar lymphadenopathy. Bony Thorax: Evidence of healed fractures is seen in the posterior right 7th and 8th ribs. Degenerative changes consistent with thoracic spondylosis are present. The bony thorax otherwise appears intact. Soft Tissues: Soft tissues overlying the chest wall are unremarkable. IMPRESSION: 1. Port-a-cath in situ. 2. Unchanged mild haziness in bilateral lower zones. 3. Mild interval increase in left-sided pleural effusion. 4. Minimal blunting of right CP angle, slight interval improvement. 5. Clinical correlation is suggested. Electronically signed by Jorge Villanueva 08-16-2025 08:26 AM
[2025-08-16] MEDS: ISOSORBIDE MONO EXTENDED REL 30 MG TABCR PO SCH (08:47)
[2025-08-16] MEDS: FOLIC ACID 1 MG TAB PO SCH (08:47)
[2025-08-16] MEDS: TAMSULOSIN HCL 0.4 MG CAP PO SCH (08:47)
[2025-08-16] MEDS: ADVANCED PROBIOTIC 625 MG CAPSULE PO SCH (08:47)
[2025-08-16] MEDS: For Breztri~FLUTICASONE FUROATE 200MCG 14 PUFFS/INHALER INH SCH (08:47)
[2025-08-16] MEDS: For Breztri~UMECLIDINIUM/VILANTEROL 62.5/25MCG 7 PUFFS/INHALER INH SCH (08:47)
[2025-08-16] MEDS: DOXYCYCLINE HYCLATE 100 MG CAP PO SCH (08:47)
[2025-08-16] MEDS: CHOLECALCIFEROL 25 MCG (1000 UNITS) TAB PO SCH (08:47)
[2025-08-16] MEDS: VITAMIN B COMPLEX TAB PO SCH (08:47)
[2025-08-16] MEDS: ASPIRIN 81 MG ECTAB PO SCH (08:47)
[2025-08-16] MEDS: METOPROLOL SUCC 50MG EXT REL TAB PO SCH (08:47)
--- NOTE | 2025-08-16 08:49 | Cardiology Consultation ---
Date of Consultation August 16, 2025 Assessment & Plan (1) Pleural effusion: (2) Volume overload: (3) Acute on chronic heart failure with preserved ejection fraction: (4) Metastatic cancer: (5) Acute on chronic blood loss anemia: (6) HTN (hypertension): Plan Patient is a complex 80 year old male admitted to [facility] with progressive SOB/dyspnea x3 days, with large left pleural effusion, multifactorial volume overload in setting of metastatic Lung CA, recent administration of 1 L of NS as an outpatient and HTN urgency on admission. Acute HFpEF/multifactorial volume overload -Symptoms improved with IV lasix 40 mg in the ER -Patient reports frequent urination overnight. outputs not recorded. -Volume status improved this morning, but patient still has large left pleural effusion on chest xray -Consider left sided thoracentesis for diagnostic and therapeutic purposes. -Echo results pending HTN -uncontrolled on admission -improved this morning after diuresis -Stop amlodipine (resumed on admission) as this has caused significant LE edema in the past and he has had recent issues with swelling and LE celluitis -Increase isosorbide if needed -Lisinopril on hold due to mild rise in renal function on admission Metastatic carcinoma - primary source has been unknown per oncology -disease progression noted on PET scan. Treatments on hold for 3 weeks per oncology notes Small pericardial effusion on PET scan -Echo results pending -Hemodynamically stable Remote CAD -no anginal complaints -continue ASA -statin on hold due to elevated LFT's -No beta abida given history of bradycardia Anemia -chronic. Monitor. -recent GI evaluation with probable healing Sofie Inder tear Further recommendations pending review and results of echo and discussion with Dr. Morrison Case discussed with Dr. Tamiko Rivers PA-C Department of Cardiology, [facility] This chart was completed in part utilizing Speech Voice Recognition Software. Grammatical errors, random word insertions, pronoun errors, and incomplete sentences are an occasional consequence of this system due to software limitations, ambient noise, and hardware issues. Any formal questions or concerns about the content, text, or information contained within the body of this dictation should be directly addressed to the provider for clarification. Supervising Physician Co-Signing Physician Notes Attending attestation: Case reviewed with the advanced practitioner. I have personally performed a history and physical examination on the patient. I have reviewed the advanced practitioner's documentation on the date of service referenced in note, and I agree with, and take responsibility for the plan of care. Subjective: Patient seen after left sided thoracentesis yielding one liter of fluid. Exam: Cardiovascular: Regular rhythm, no murmurs, mildly decreased breath sounds at the left base Data: Echocardiogram performed today 08/16/2025 (prior to thoracentesis) The LV wall thickness is borderline increased (concentric). The left ventricular wall motion is normal. Left ventricular systolic function is normal. The qualitative LV ejection fraction =55% (normal). The left atrium is moderately dilated. Aortic valve sclerosis moderate, without significant aortic valvular stenosis. There is moderate mitral regurgitation. There is mild tricuspid regurgitation. The pulmonary artery systolic pressure is estimated to be 30 mm Hg (normal). There is a trivial loculated apical right lateral pericardial effusion. Cardiac tamponade is absent. There is a large left pleural effusion. Compared to the report of the previous study dated 05/23/2025, the trivial loculated apical right lateral pericardial effusion is unchanged. There has been interval development of a large left pleural effusion. Impression/ Plan: Large left pleural effusion noted on echocardiogram for which the patient has since undergone ultrasound-guided thoracentesis Trivial loculated pericardial effusion without hemodynamic consequence -Clinically, patient does not examine as being volume overloaded -Agree with thoracentesis reasonable approach as I do not think he would tolerate diuretic therapy, and thoracentesis we will perform a therapeutic and diagnostic standpoint with plans to send pleural fluid studies given history of cancer. Сергей Morrison, History of Present Illness Attending Physician: Blake Figueroa, History of Present Illness Patient is a complex 80 year old male who presented to [facility] with progressive dyspnea/SOB over the last few days. Recent PET scan with progressive metastatic adenocarcinoma of the lung - primary source unknown. Now off Keytruda. Awaiting next plan in a few weeks. While in oncology office earlier this week (08/14), they felt patient was dehydrated due to elevated creatinine of 1.4 (baseline 1.1-1.2) and elevated sodium level of 149. He reiceived 1 L of NS via IV while in clinic. Patient reports about 12-24 hours, he became acutely SOB with orthopnea, PND and inability to sleep due to SOB. He presented to the ER and was mildly hypoxic. Chest xray demonstrating mild pulm vascular congestion. BP was uncontrolled. Amlodipine was added last night for HTN. He was treated with one dose IV lasix 40 mg last night in the ER. He reports frequent urination all night. Unfortunately outputs not recorded. At time of evaluation this morning, patient feeling much improved. Laying supine. SOB improving. No chest pain. no dizziness. No edema. Prior complaints of edema and erythema/cellulitis have improved over the last few weeks per patient. History is complex and includes: 1 CAD s/p inferior wall IA with DULCE to the ramus in 2017; Nuclear stress test in 2018 with inferior infarct. 2. Small pericardial effusion noted on echo in May 2025 3. Diagnosis of metastatic poorly differentiated carcinoma in 2023- primary source unknown, but possible the lung. S/P chemo recently finishing Keytruda therapy. Recent PET scan with progressive disease. Off therapies currently. Repeat visit in 3 weeks for re-evaluation 4. Recent issues with LE cellulitis (admission in Jun 2025) 5. Hypertension with intermittent hypotension during chemo - amlodipine discontinued due to LE edema and hypotension. 6. Lone episode of paroxysmal atrial fibrillation several years ago - Zio monitoring in June 2019, May 2020, and July 2024 without reoccurrence. Patient declined manager terminal anticoagulation + Severe left atrial en largement 7. Peripheral arterial disease - follows with vascular -Carotid duplex in March 2024 revealed stable mild bilateral internal carotid artery disease, results unchanged for a number of years. -AAA : January 2021 imagin.4 cm; April 2024 imaging: Stable 3.5 cm -Arterial Dopplers of the lower extremities in April 2021 revealed mild peripheral arterial occlusive disease on the right (likely located in the aortoiliac location). No significant disease on the left. Results similar to April 2020. 8. Frequent ventricular ectopy 9. 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 10. Chronic tobacco abuse. Emphysematous lung changes. COPD. Pulmonary nodules. 11. Dyslipidemia 12. Moderate MR 13. History of sinus bradycardia - no AV love blocking therapies Allergies Allergy/AdvReac Type Severity Reaction Status Date / Time bee venom protein (honey bee) Allergy Severe ANAPHYLAXIS Verified 06/21/25 20:53 cephalexin [From Keflex] Allergy Unknown CAN'T Verified 06/21/25 20:53 MD CHIDI ADDED TO LIST Home Medications Medication Instructions Recorded Confirmed Type atorvastatin 80 mg tablet 80 mg PO DAILY 04/22/20 08/15/25 History cholecalciferol (vitamin D3) 25 1,000 unit PO QAM 04/22/20 08/15/25 History mcg (1,000 unit) capsule (Vitamin D3) epinephrine 0.3 mg/0.3 mL 0.3 mg IM DIRECTED PRN Allergic 04/22/20 08/15/25 History injection, auto-injector Reaction metformin 500 mg tablet 500 mg PO BIDM 04/22/20 08/15/25 History nitroglycerin 0.4 mg sublingual 0.4 mg sublingual DIRECTED PRN 04/22/20 08/15/25 History tablet (Nitrostat) Chest Pain tamsulosin 0.4 mg capsule 0.4 mg PO QAM 04/22/20 08/15/25 History isosorbide mononitrate 30 mg 30 mg PO QAM 02/03/23 08/15/25 History tablet,extended release 24 hr lisinopril 2.5 mg tablet 2.5 mg PO QAM 02/03/23 08/15/25 History albuterol sulfate 90 mcg/actuation 2 inh inhalation Q4H PRN shortness 05/18/25 08/15/25 History aerosol inhaler of breath or wheezing budesonide 160 mcg-glycopyr 9 2 inh inhalation BID 05/18/25 08/15/25 History mcg-formot 4.8 mcg/actuation HFA inhaler (Breztri Aerosphere) folic acid 1 mg tablet 1 mg PO QAM 05/18/25 08/15/25 History prochlorperazine maleate 10 mg 10 mg PO Q6H PRN Nausea And 05/18/25 08/15/25 History tablet Vomiting trazodone 50 mg tablet 50 mg PO HS 05/18/25 08/15/25 History pantoprazole 40 mg tablet,delayed 40 mg PO BID #60 tabs 05/21/25 08/15/25 Rx release B-complex with vitamin C 1 cap PO QAM 06/21/25 08/15/25 History aspirin 81 mg tablet,delayed 81 mg PO QAM 06/21/25 08/15/25 History release dexamethasone 4 mg tablet 8 mg PO DIRECTED PRN DAYS 2,3,4 06/21/25 08/15/25 History OF CHEMO lidocaine-prilocaine 2.5 %-2.5 % 1 applic topical DIRECTED PRN 06/21/25 History topical cream ACCESSING MEDIPORT loperamide 1 mg/7.5 mL oral liquid 0.5 mg PO DAILY PRN Diarrhea 06/21/25 08/15/25 History (Imodium A-D) loratadine 10 mg tablet (Claritin) 10 mg PO DAILY PRN START DAY OF 06/21/25 08/15/25 History CHEMO X 5 DAYS. metoprolol succinate 50 mg 50 mg PO BID 06/21/25 08/15/25 History tablet,extended release 24 hr ondansetron HCl 8 mg tablet 8 mg PO Q8H PRN NAUSEA/VOMITING 06/21/25 08/15/25 History oxycodone 5 mg tablet 5 mg PO Q4H PRN pain #10 tabs 06/23/25 08/15/25 Rx L.acidop,casei,lactis,rham-B.lact,zac 1 cap PO QAM 08/15/25 08/15/25 History 625 mg (10 billion cell) capsule (Advanced Probiotic) doxycycline hyclate 100 mg capsule 100 mg PO AMHS 08/15/25 08/15/25 History Patient History Medical History PAD (peripheral artery disease) Mild bilateral ICA disease (per 2019 carotid duplex) Arterial doppler of LE showed mild PAD on right side (April 2021) History of Mohs micrographic surgery for skin cancer History of gout History of melanoma Hyperlipidemia BPH (benign prostatic hyperplasia) Myocardial Infarction 1996 > anterior wall IA Kidney stone Abdominal aneurysm 3.4 cm intrarenal AAA, monitor yearly> last check 08/2022 [facility]. Surgical History History of urologic surgery History of cancer surgery bladder History of cystoscopy History of tooth extraction History of lithotripsy recent--08/21/21 @ [place] History of cardiac cath 2017 > 1 STENT > [facility] Hx of colonoscopy History of lumbar spinal fusion 2010 1968 Family History Father Diabetes Grandmother (Paternal) Diabetes Other Cancer Coronary heart disease Hypertension No family history of adverse response to anesthesia Social History Smoking Status: Current every day smoker Tobacco Type: Cigarettes Cigarettes Per Day: 3-4; Second Hand Exposure: Yes; Do You Dip or Chew Tobacco: No; Hx Alcohol Use: No Hx Substance Use: No Preferred Language: Welsh Communication Ability: Effective Fiber Optic Assembler Required: No Beliefs That Will Affect Care: None marital status: Current Living Situation: Spouse Current Living Situation Comment: with Feels Safe at Home: Yes Safety Concerns: Feels Safe At This Time Assistive Devices: Walker Assistive Devices Comment: walker after chemo treatments Review of Systems Review of Systems: All systems reviewed & are unremarkable except as noted in HPI & below Physical Exam Physical Exam: Temp Pulse Resp BP Pulse Ox O2 Del Method O2 Flow Rate 36.5 C 62 19 134/44 L 92 Room Air 3 08/16/25 11:46 08/16/25 11:46 08/16/25 11:46 08/16/25 11:46 08/16/25 11:46 08/16/25 11:46 08/16/25 07:44 Constitutional: WD/WN, vitals as above + thin; no acute distress Neck: trachea midline, no thyromegaly Respiratory: no labored breathing and no cough Auscultation: + diminished lung sounds; no crackles and no rales Cardiovascular: Rate/Rhythm: regular rate and regular rhythm Heart Sounds: normal S1; no murmur Vessels: no JVD Extremities: no edema Gastrointestinal (Abdomen): normal bowel sounds, soft, nontender, no hepatosplenomegaly Neurologic: PERRL, EOMI, accommodation nl, no face palsy, no dysarthria Results & Data Laboratory Results Cardiac Enzymes 08/15/25 08/16/25 Range/Units 16:48 05:16 AST 55 H 50 H (13-39) U/L Troponin I High Sens 18.1 (0-20) pg/ml B-Natriuretic Peptide 1180 H (0-100) pg/ml Coagulation 08/15/25 Range/Units 16:48 PT 12.6 H (9.0-12.0) Seconds APTT 29 (21-31) Seconds B-Natriuretic Peptide 1180 H (0-100) pg/ml CBC 08/15/25 08/16/25 Range/Units 16:48 05:16 WBC 5.46 4.51 L (4.8-10.8) K/ul RBC 2.43 L 2.16 L (4.70-6.10) M/uL Hgb 9.0 L 7.9 L (14.0-18.0) g/dL Hct 27.2 L 23.9 L (42.0-52.0) % Plt Count 168 131 (130-400) K/uL Neut # (Auto) 3.06 2.24 (1.40-6.50) K/uL Lymph # (Auto) 1.72 1.54 (1.20-3.40) K/uL [place] # (Auto) 0.58 0.61 H (0.11-0.59) K/uL Eos # (Auto) 0.07 0.10 (0.00-0.50) K/uL Baso # (Auto) 0.00 0.00 (0.00-0.20) K/uL Comprehensive Metabolic Panel 08/15/25 08/16/25 Range/Units 16:48 05:16 Sodium 149 H 148 H (136-145) mmol/L Potassium 3.7 3.7 (3.5-5.1) mmol/L Chloride 115 H 113 H (98-107) mmol/L Carbon Dioxide 26 29 (21-32) mmol/L BUN 18 18 (6-23) mg/dl Creatinine 1.45 H 1.37 (0.6-1.4) mg/dl Glucose 107 H 108 H (70-99(Fasting)) mg/dl Calcium 8.9 8.6 (8.6-10.3) mg/dl Direct Bilirubin 0.1 (0-0.2) mg/dl AST 55 H 50 H (13-39) U/L ALT 45 43 (7-52) U/L Alkaline Phosphatase 127 H 123 H (34-104) U/L Total Protein 6.4 5.2 L (6.0-8.3) gm/dl Albumin 3.2 L 2.7 L (3.4-5.0) gm/dl Diagnostic Findings Telemetry reviewed: sinus and sinus bradycardia at 50-60's. EKG reviewed from admission Echo report pending Liver Ultrasound 08/16/25 05:05 EXAM: US liver CLINICAL HISTORY: abn lfts TECHNIQUE: Limited ultrasound of the liver and gallbladder was performed in greyscale and Doppler. Multiple images were obtained in transverse and longitudinal planes. COMPARISON: Prior CT scan abdomen pelvis with contrast dated 05/18/2025 was reviewed. FINDINGS: Liver: Normal in size measuring upto 13.0 cm, however appears sightly echogenic with homogeneous parenchymal echotexture, suggestive of mild fatty changes. At least two hypoechoic lesions with echogenic centers are seen interval developed in right lobe, larger one measures upto 0.8 cm, and the smaller one measures upto 0.6 cm(new finding). Hepatic vasculature appears unremarkable. Questionable minimal streak of perihepatic free fluid noted. Gallbladder: Gallbladder is optimally distended; however appears mildly thickened with wall thickness measuring upto 2.3 mm, possibly due to partial contraction/reactivity(unchanged) No gallstones, definite pericholecystic fluid or positive Figueroa's sign noted to suggest acute cholecystitis. Biliary Tree:. Visualized common bile duct appears prominent at the level of waqar hepatis measuring upto 6.1 mm(according to the tech). Right Kidney: Visualized right kidney shows interval mild to moderate hydronephrosis, and visualized proximal hydroureter(new). Redemonstration of multiple variable-sized cortical cysts involving the right kidney, largest one measures upto 3.3 x 3.7 x 3.3cm. Additional findings: Redemonstration of mild right-sided pleural effusion. IMPRESSION: 1. Grade 1 fatty changes in liver with interval development of at least two hypoechoic lesions with echogenic centers in the right lobe. Correlation by CT scan abdomen triphasic study is warranted for their further characterization. 2. Prominent visualized common bile duct. Correlation with MRI MRCP/ERCP is warranted to exclude the suspicion of its distal obstruction if indicated. 3. Interval mild to moderate hydronephrosis and visualized proximal hydroureter in the right kidney. Sonographic / CT scan correlation is warranted to rule out the suspicion of distal right ureter obstruction. 4. Redemonstration of variable-sized right renal cortical cysts(unchanged). 5. Redemonstration of mild right-sided pleural effusion(unchanged). 6. Questionable minimal streak of perihepatic free fluid noted. 7. No any other significant interval changes detected. Electronically signed by Jorge Villanueva 08-16-2025 08:15 AM Chest X-Ray 08/16/25 07:00 EXAM: XR chest 1V portable CLINICAL HISTORY: chf ffup TECHNIQUE: An X-ray image of the chest is obtained in AP projection. COMPARISON: Prior X-ray dated 08/15/2025 for comparison. FINDINGS: Lines : A port-a-cath is seen in situ, with its tip in a normal position. Pulmonary Parenchyma: Unchanged mild haziness in bilateral lower zones. Mild interval increase in left-sided pleural effusion. Minimal blunting of right CP angle, slight interval improvement. No new consolidation or focal opacities are identified. Heart and Mediastinum: Heart size and shape are normal No mediastinal widening or hilar lymphadenopathy. Bony Thorax: Evidence of healed fractures is seen in the posterior right 7th and 8th ribs. Degenerative changes consistent with thoracic spondylosis are present. The bony thorax otherwise appears intact. Soft Tissues: Soft tissues overlying the chest wall are unremarkable. IMPRESSION: 1. Port-a-cath in situ. 2. Unchanged mild haziness in bilateral lower zones. 3. Mild interval increase in left-sided pleural effusion. 4. Minimal blunting of right CP angle, slight interval improvement. 5. Clinical correlation is suggested. Electronically signed by Jorge Villanueva 08-16-2025 08:26 AM Prior outside data: Echo report reviewed dated May 2025: Interpretation Summary The qualitative LV ejection fraction is 55-59% (normal). The global longitudinal strain (GLS) is - 19.0 %. Normal left ventricular systolic function is suggested if GLS is -14% to -30%. The left atrium is moderately enlarged (42-48 ml/m^2). Moderate aortic valve sclerosis is present. Moderate mitral regurgitation is present. Mild tricuspid regurgitation is present. There is no evidence of pulmonary hypertension. Trivial loculated apical right lateral pericardial effusion. Cardiac tamponade is absent. Compared to last available study changes are noted as follows: Moderate mitral regurgitation, and trivial loculated pericardial effusion now present. Medications Administered Current Inpatient Medications Acetaminophen (Acetaminophen 500 Mg Tab) 500 mg PO Q6H PRN PRN Reason: fever/pain Stop: 09/15/25 05:01 Amlodipine Besylate (Amlodipine Besylate 5 Mg Tab) 5 mg PO HS CHANELLE Stop: 09/16/25 20:59 Aspirin (Aspirin 81 Mg Ectab) 81 mg PO QAM CHANELLE Stop: 09/15/25 08:59 Last Admin: 08/16/25 08:47 Dose: 81 mg Dextrose (Dextrose 50% 50 Ml Syringe) 25 - 50 ml IV UD PRN; Protocol PRN Reason: Hypoglycemia Protocol Stop: 09/15/25 00:21 Doxycycline Hyclate (Doxycycline Hyclate 100 Mg Cap) 100 mg PO AMHS [facility] Stop: 08/17/25 08:59 Last Admin: 08/16/25 08:47 Dose: 100 mg Fluticasone Furoate (For Breztri~Fluticasone Furoate 200mcg 14 Puffs/Inhaler) 1 puffs INH DAILY CHANELLE Stop: 09/15/25 08:59 Last Admin: 08/16/25 08:47 Dose: 1 puffs Folic Acid (Folic Acid 1 Mg Tab) 1 mg PO QAM [facility] Stop: 09/15/25 08:59 Last Admin: 08/16/25 08:47 Dose: 1 mg Glucagon (Glucagon For Inj 1 Mg Vial) 1 mg SQ UD PRN; Protocol PRN Reason: Hypoglycemia Protocol Stop: 09/15/25 00:21 Glucose (Glucose 10 Tab/Tube) 4 - 8 tab PO UD PRN; Protocol PRN Reason: Hypoglycemia Protocol Stop: 09/15/25 00:21 Glucose (Glucose 40% Gel 15 Gm Tube) 15 - 30 gm PO UD PRN; Protocol PRN Reason: Hypoglycemia Protocol Stop: 09/15/25 00:21 Promethazine HCl (Phenergan) 6.25 mg in 50.25 mls @ 201 mls/hr IV Q6H PRN PRN Reason: Nausea And Vomiting Stop: 09/14/25 22:14 Insulin Aspart (Insulin Aspart Per Unit Charge) 0 units SC ACHS [facility] Stop: 09/15/25 00:21 Last Admin: 08/16/25 08:44 Dose: Not Given Isosorbide Mononitrate (Isosorbide Dorado Extended Rel 30 Mg Tabcr) 30 mg PO QAM [facility] Stop: 09/15/25 08:59 Last Admin: 08/16/25 08:47 Dose: 30 mg Lactobacillus Acidophilus (Advanced Probiotic 625 Mg Capsule) 1,250 mg PO QAM [facility] Stop: 09/15/25 08:59 Last Admin: 08/16/25 08:47 Dose: 1,250 mg Metoprolol Succinate (Metoprolol Succ 50mg Ext Rel Tab) 50 mg PO BID [facility] Stop: 09/15/25 08:59 Last Admin: 08/16/25 08:47 Dose: 50 mg Miscellaneous (Carbohydrates For Hypoglycemia ) 15 - 30 gm PO UD PRN PRN Reason: Hypoglycemia Protocol Stop: 09/15/25 00:21 Oxycodone HCl (Oxycodone Hcl Ir 5 Mg Tab (Immediate Release)) 5 mg PO Q4H PRN PRN Reason: pain Stop: 08/29/25 22:12 Pantoprazole Sodium (Pantoprazole 40 Mg Tab) 40 mg PO BID CHANELLE Stop: 09/15/25 08:59 Last Admin: 08/16/25 08:47 Dose: 40 mg Tamsulosin HCl (Tamsulosin Hcl 0.4 Mg Cap) 0.4 mg PO QAM CHANELLE Stop: 09/15/25 08:59 Last Admin: 08/16/25 08:47 Dose: 0.4 mg Trazodone HCl (Trazodone Hcl 50 Mg Tab) 50 mg PO HS CHANELLE Stop: 09/14/25 22:14 Last Admin: 08/15/25 22:51 Dose: 50 mg Umeclidinium/Vilanterol (For Breztri~Umeclidinium/Vilanterol 62.5/25mcg 7 Puffs/Inhaler) 1 puffs INH DAILY CHANELLE Stop: 09/15/25 08:59 Last Admin: 08/16/25 08:47 Dose: 1 puffs Vitamin B Complex (Vitamin B Complex Tab) 1 tab PO QAM [facility]ANELLE Stop: 09/15/25 08:59 Last Admin: 08/16/25 08:47 Dose: 1 tab Vitamin D (Cholecalciferol 25 Mcg (1000 Units) Tab) 25 mcg PO QAM CHANELLE Stop: 09/15/25 08:59 Last Admin: 08/16/25 08:47 Dose: 25 mcg Coding Level of Care Code 00673 INT INP/OBS CARE 3/75MIN Diagnoses Pleural effusion J90 Volume overload E87.70 Acute on chronic heart failure with preserved ejection fraction I50.33 Metastatic cancer C79.9 Acute on chronic blood loss anemia D62 HTN (hypertension) I10
[2025-08-16] MEDS ORDERED: NON-FORMULARY MEDICATION (Budesonide-Glycopyr-Formoterol [Breztri Aerosphere] 160-9-4.8 mc INH SCH (09:00)
[2025-08-16] MEDS ORDERED: ATORVASTATIN 40 MG TAB PO SCH (09:00)
--- NOTE | 2025-08-16 11:33 | XCELERA ---
[id number]
--- NOTE | 2025-08-16 12:44 | Hospitalist Progress Note ---
Date of Service August 16, 2025 Assessment & Plan (1) Acute on chronic heart failure with preserved ejection fraction: Plan: 80M with PMH CAD, HFpEF, afib not on AC due to patient preference, COPD not on O2, metastatic cancer with unknown primary, smoker who presents with SOB #Acute on chronic HFpEF -BNP elevated -CXR showing L pleural effusion and pulm edema -Required 3L NC in ED -S/p IV lasix on admission -Now on room air and volume status much improved -TTE reviewed, normal EF, some valvular dysfunction and L left pleural effusion Plan -Appreciate cardio input regarding further diuresis -His chronic hypernatremia make diuresis difficult -Monitor renal function -Monitor resp status, cardiac monitoring -GDMT as tolerated -Anticipate DC home tomorrow pending thora results as below #L large pleural effusion -Personally reviewed CXR images from this admission and on 06/21 -Pleural effusion is much large currently -D/w cardiology who recommended thora -Hopefully this is transudative from CHF but cannot rule out malignant effusion with his CA history Plan -D/w patient, he is agreeable -Thora today, care coordinated with cardio and IR -F/u on pleural fluid analysis, cytology #CKD3 -Patient states his Cr has been worsening since the beginning of this year -He states his OP physicians have attributed it to his chemo -Do not suspect ANDRES, but rather CKD3 -Renal function is stable today following IV lasix #Hypernatremia -Mild stable asymptomatic #HTN -norvasc dc by cardio -Imdur increased from 30 to 60 by cardio -Resume home lisinopril as this is unlikely to be ANDRES #Bicytopenia -Chronic -No evidence of acute blood loss -F/u heme-onc as OP #Metastatic malignancy with unknown primary -It is suspected to be lung cancer but no definitive diagnosis -Currently being observed off chemo by his oncology team -F/u on fluid analysis to r/o malignant effusion I spent a total of 65 minutes coordinating, documenting, and providing care for this patient excluding time spent in the performance of separately billed services. This included personally reviewing all current laboratories and imaging studies, medical reconciliation, outpatient chart review and discussion with specialists (2) Pleural effusion: Admission and Anticipated Discharge Date Admission Date: August 15, 2025 Subjective Feeling much better today back to baseline. Patient denies F/C, CP, palpitations, SOB, dyspnea, abd pain, N/V/D Patient seen and examined 3 times today to discuss results and plan D/w investment associate and cardio LANA called and updated as well Physical Exam Physical Exam: Vitals and labs reviewed General: Well appearing, NAD HEENT: EOMI, PERRLA Neck: Supple Cardiac: RRR systolic murmur Lungs: CTA no rhonchi wheezing. rales on L Abd: S NT ND BS positive : Deffered MSK: Full ROM. No obvious deformities Ext: No Edema cyanosis Skin: Warm, Dry Neuro: AOx3 No focal deficits. Psych: Normal Mood Results & Data Results & Data Vital Signs (Past 12 Hours) Vital Signs Temp Pulse Pulse Resp BP Pulse Ox O2 Del Method 08/16/25 11:46 36.5 C 62 19 134/44 L 92 Room Air 08/16/25 09:00 Room Air 08/16/25 07:44 36.4 C L 56 L 19 147/64 H 94 Nasal Cannula 08/16/25 07:40 54 L 08/16/25 04:16 36.4 C L 56 L 16 165/73 H 96 Nasal Cannula 08/16/25 03:00 76 O2 Flow Rate 08/16/25 11:46 08/16/25 09:00 08/16/25 07:44 3 08/16/25 07:40 08/16/25 04:16 3 08/16/25 03:00 Laboratory Results Abnormal lab results 08/15/25 08/16/25 08/16/25 Range/Units 16:48 00:30 05:16 WBC 4.51 L (4.8-10.8) K/ul RBC 2.43 L 2.16 L (4.70-6.10) M/uL Hgb 9.0 L 7.9 L (14.0-18.0) g/dL Hct 27.2 L 23.9 L (42.0-52.0) % MCV 111.9 H 110.6 H (80.0-100.0) fL MCH 37.0 H 36.6 H (25.0-34.0) pg RDW Std Deviation 65.1 H 63.3 H (36.4-46.3) fL RDW Coeff of Ele 16.6 H 16.6 H (11.5-14.5) % Powell # (Auto) 0.61 H (0.11-0.59) K/uL PT 12.6 H (9.0-12.0) Seconds INR 1.2 H (0.9-1.1) VBG pH 7.44 H (7.36-7.41) Sodium 149 H 148 H (136-145) mmol/L Chloride 115 H 113 H (98-107) mmol/L Creatinine 1.45 H (0.6-1.4) mg/dl Glucose 107 H 108 H (70-99(Fasting)) mg/dl POC Glucose 104 H (70-99) mg/dl Magnesium 1.3 L (1.7-2.4) mg/dl AST 55 H 50 H (13-39) U/L Alkaline Phosphatase 127 H 123 H (34-104) U/L B-Natriuretic Peptide 1180 H (0-100) pg/ml Total Protein 5.2 L (6.0-8.3) gm/dl Albumin 3.2 L 2.7 L (3.4-5.0) gm/dl 08/16/25 08/16/25 Range/Units 08:01 11:56 WBC (4.8-10.8) K/ul RBC (4.70-6.10) M/uL Hgb (14.0-18.0) g/dL Hct (42.0-52.0) % MCV (80.0-100.0) fL MCH (25.0-34.0) pg RDW Std Deviation (36.4-46.3) fL RDW Coeff of Ele (11.5-14.5) % Powell # (Auto) (0.11-0.59) K/uL PT (9.0-12.0) Seconds INR (0.9-1.1) VBG pH (7.36-7.41) Sodium (136-145) mmol/L Chloride (98-107) mmol/L Creatinine (0.6-1.4) mg/dl Glucose (70-99(Fasting)) mg/dl POC Glucose 107 H 124 H (70-99) mg/dl Magnesium (1.7-2.4) mg/dl AST (13-39) U/L Alkaline Phosphatase (34-104) U/L B-Natriuretic Peptide (0-100) pg/ml Total Protein (6.0-8.3) gm/dl Albumin (3.4-5.0) gm/dl Diagnostic Findings Liver Ultrasound 08/16/25 05:05 EXAM: US liver CLINICAL HISTORY: abn lfts TECHNIQUE: Limited ultrasound of the liver and gallbladder was performed in greyscale and Doppler. Multiple images were obtained in transverse and longitudinal planes. COMPARISON: Prior CT scan abdomen pelvis with contrast dated 05/18/2025 was reviewed. FINDINGS: Liver: Normal in size measuring upto 13.0 cm, however appears sightly echogenic with homogeneous parenchymal echotexture, suggestive of mild fatty changes. At least two hypoechoic lesions with echogenic centers are seen interval developed in right lobe, larger one measures upto 0.8 cm, and the smaller one measures upto 0.6 cm(new finding). Hepatic vasculature appears unremarkable. Questionable minimal streak of perihepatic free fluid noted. Gallbladder: Gallbladder is optimally distended; however appears mildly thickened with wall thickness measuring upto 2.3 mm, possibly due to partial contraction/reactivity(unchanged) No gallstones, definite pericholecystic fluid or positive Figueroa's sign noted to suggest acute cholecystitis. Biliary Tree:. Visualized common bile duct appears prominent at the level of waqar hepatis measuring upto 6.1 mm(according to the tech). Right Kidney: Visualized right kidney shows interval mild to moderate hydronephrosis, and visualized proximal hydroureter(new). Redemonstration of multiple variable-sized cortical cysts involving the right kidney, largest one measures upto 3.3 x 3.7 x 3.3cm. Additional findings: Redemonstration of mild right-sided pleural effusion. IMPRESSION: 1. Grade 1 fatty changes in liver with interval development of at least two hypoechoic lesions with echogenic centers in the right lobe. Correlation by CT scan abdomen triphasic study is warranted for their further characterization. 2. Prominent visualized common bile duct. Correlation with MRI MRCP/ERCP is warranted to exclude the suspicion of its distal obstruction if indicated. 3. Interval mild to moderate hydronephrosis and visualized proximal hydroureter in the right kidney. Sonographic / CT scan correlation is warranted to rule out the suspicion of distal right ureter obstruction. 4. Redemonstration of variable-sized right renal cortical cysts(unchanged). 5. Redemonstration of mild right-sided pleural effusion(unchanged). 6. Questionable minimal streak of perihepatic free fluid noted. 7. No any other significant interval changes detected. Electronically signed by Jorge Villanueva 08-16-2025 08:15 AM Chest X-Ray 08/16/25 07:00 EXAM: XR chest 1V portable CLINICAL HISTORY: chf ffup TECHNIQUE: An X-ray image of the chest is obtained in AP projection. COMPARISON: Prior X-ray dated 08/15/2025 for comparison. FINDINGS: Lines : A port-a-cath is seen in situ, with its tip in a normal position. Pulmonary Parenchyma: Unchanged mild haziness in bilateral lower zones. Mild interval increase in left-sided pleural effusion. Minimal blunting of right CP angle, slight interval improvement. No new consolidation or focal opacities are identified. Heart and Mediastinum: Heart size and shape are normal No mediastinal widening or hilar lymphadenopathy. Bony Thorax: Evidence of healed fractures is seen in the posterior right 7th and 8th ribs. Degenerative changes consistent with thoracic spondylosis are present. The bony thorax otherwise appears intact. Soft Tissues: Soft tissues overlying the chest wall are unremarkable. IMPRESSION: 1. Port-a-cath in situ. 2. Unchanged mild haziness in bilateral lower zones. 3. Mild interval increase in left-sided pleural effusion. 4. Minimal blunting of right CP angle, slight interval improvement. 5. Clinical correlation is suggested. Electronically signed by Jorge Villanueva 08-16-2025 08:26 AM
[2025-08-16 13:28] LABS: Albumin Level 2.9 gm/dl (3.4-5.0); Total Protein 5.4 gm/dl (6.0-8.3)
--- NOTE | 2025-08-16 14:47 | XRay Report ---
XR chest 1V not portable CLINICAL HISTORY: POST THORA COMPARISON STUDY: 08/16/2025 FINDINGS: Stable right chest port. Stable mild cardiomegaly without pulmonary vascular congestion. Th ere is a trace left pleural effusion, improved. Stable minimal blunting of the right costophrenic ang le. No pneumothorax seen. IMPRESSION: No pneumothorax seen. ACT 112: Negative or not required by law. Electronically signed by: Ronni Suarez M.D. 08/16/2025 2:46 PM
--- NOTE | 2025-08-16 14:49 | Ultrasound Report ---
IR thoracentesis wo tube US CLINICAL HISTORY: large L pleural effusion COMPARISON STUDY: None Technique: After the procedure was discussed and questions answered, consent was obtained. Patient wa s positioned seated upright. Ultrasound demonstrates large left pleural effusion. Left back was prepp ed and draped in standard sterile fashion. 1% lidocaine was used for local anesthesia. Under ultrasou nd guidance, a standard thoracentesis catheter was advanced into the left pleural effusion from a pos terior lower intercostal approach. 1 L of fluid was withdrawn. Catheter was removed. Hemostasis was o btained with manual compression. Sterile dressing was applied. Postprocedure chest x-ray shows no pne umothorax. IMPRESSION: Left thoracentesis. ACT 112: Negative or not required by law. Electronically signed by: Ronni Suarez M.D. 08/16/2025 2:48 PM
[2025-08-16 15:49] LABS: Appearance Pleural Fluid Clear; Color Pleural Fluid Pale Yellow; RBC Pleural Fluid Auto < 2000 /uL; Source Pleural Fluid Left Lung; WBC Pleural Fluid Auto 283 /uL
[2025-08-16 18:57] LABS: Appearance Urine Clear (Clear); Bacteria Urine Automated None Seen (None Seen); Cast Urine Automated 0-2 /lpf (0-2); Glucose Urine UA Negative (Negative); RBC Urine Automated 0-2 /hpf (0-2)
--- NOTE | 2025-08-16 20:07 | Electrocardiogram Report ---
Test Reason : Blood Pressure : */* mmHG Vent. Rate : 67 BPM Atrial Rate : 67 BPM P-R Int : 144 ms QRS Dur : 100 ms QT Int : 390 ms P-R-T Axes : 31 44 0 degrees QTcB Int : 412 ms Normal sinus rhythm Nonspecific ST and T wave abnormality Abnormal ECG When compared with ECG of 21-Jun-2025 19:21, Premature ventricular complexes are no longer Present Confirmed by Danilo Catherine ([id number]) on 08/16/2025 8:06:58 PM Referred By: REFERRED SELF Confirmed By: Danilo Catherine
[2025-08-17 06:21] LABS: Hematocrit (blood only) 23.5 % (42.0-52.0); Hemoglobin 7.8 g/dL (14.0-18.0); Mean Corpuscular Hemoglobin 36.8 pg (25.0-34.0); Mean Corpuscular Volume 110.8 fL (80.0-100.0); Platelet Count 139 K/uL (130-400); RDW Standard Deviation 63.6 fL (36.4-46.3); Red Blood Count 2.12 M/uL (4.70-6.10); White Blood Count 3.98 K/ul (4.8-10.8)
[2025-08-17 06:41] LABS: Anion Gap 5.0 (3-11); Blood Urea Nitrogen 21.0 mg/dl (6-23); Calcium 8.4 mg/dl (8.6-10.3); Carbon Dioxide 30.0 mmol/L (21-32); Chloride 111.0 mmol/L (98-107); Creatinine Clr Calc Pharmacy 32.6 ml/min; Glucose 93.0 mg/dl (70-99(Fasting)); Potassium 3.5 mmol/L (3.5-5.1); Sodium 146.0 mmol/L (136-145)
[2025-08-17] MEDS: ISOSORBIDE MONO EXTENDED REL 60 MG TABCR PO SCH (08:21)
[2025-08-17 09:37] LABS: Lymphocytes, Fluid 49 %; Mono,Macrophage,Mesothelial 50 %; Neutrophils, Fluid 1 %
--- NOTE | 2025-08-17 10:00 | Hospitalist Progress Note ---
Date of Service August 17, 2025 Assessment & Plan (1) Acute on chronic heart failure with preserved ejection fraction: Plan: 80M with PMH CAD, HFpEF, afib not on AC due to patient preference, COPD not on O2, metastatic cancer with unknown primary, smoker who presents with SOB #Acute on chronic HFpEF -BNP elevated -CXR showing L pleural effusion and pulm edema -Required 3L NC in ED -S/p IV lasix on admission -Now on room air and volume status much improved -TTE reviewed, normal EF, some valvular dysfunction and L left pleural effusion Plan -Lasix held for today due to rising Cr -His chronic hypernatremia make diuresis difficult -Monitor renal function -Monitor resp status, cardiac monitoring -GDMT as tolerated -Anticipate DC home tomorrow pending BMP #L large pleural effusion -Personally reviewed CXR images from this admission and on 06/21 -Pleural effusion is much large currently -S/p L thora 08/06 with 1L clear fluid removed -Calculated Lights Criteria, via serum/pleural LDH/Protein, suggestive of transudative -Likely from CHF -Personally reviewed CXR from yesterday Plan -F/u on fluid cytology next week #ANDRES on CKD3 -Patient states his Cr has been worsening since the beginning of this year -He states his OP physicians have attributed it to his chemo -Cr michael today following IV lasix on admission Plan -Hold further lasix -Recheck BMP in AM -Avoid nephrotoxic agents if possible #Hypernatremia -Mild stable asymptomatic #HTN -norvasc dc by cardio -Imdur increased from 30 to 60 by cardio -Lisinopril now held due to ANDRES #Bicytopenia -Chronic -No evidence of acute blood loss -F/u heme-onc as OP #Metastatic malignancy with unknown primary -It is suspected to be lung cancer but no definitive diagnosis -Currently being observed off chemo by his oncology team -F/u on fluid analysis to r/o malignant effusion I spent a total of 58 minutes coordinating, documenting, and providing care for this patient excluding time spent in the performance of separately billed services. This included personally reviewing all current laboratories and imaging studies, medical reconciliation, outpatient chart review and discussion with specialists (2) Pleural effusion: Admission and Anticipated Discharge Date Admission Date: August 15, 2025 Subjective Feeling much better today back to baseline. Patient denies F/C, CP, palpitations, SOB, dyspnea, abd pain, N/V/D he would like to go home but agreeable tos taying again tonight Physical Exam Physical Exam: Vitals and labs reviewed General: Well appearing, NAD HEENT: EOMI, PERRLA Neck: Supple Cardiac: RRR systolic murmur Lungs: CTA no rhonchi wheezing. rales on L-improved Abd: S NT ND BS positive : Deffered MSK: Full ROM. No obvious deformities Ext: No Edema cyanosis Skin: Warm, Dry Neuro: AOx3 No focal deficits. Psych: Normal Mood Results & Data Results & Data Vital Signs (Past 12 Hours) Vital Signs Temp Pulse Pulse Pulse Resp BP Pulse Ox 08/17/25 08:10 36.5 C 54 L 16 163/65 H 90 08/17/25 03:04 36.9 C 62 20 116/74 92 08/16/25 23:09 36.2 C L 82 20 100/60 96 08/16/25 22:19 56 L O2 Del Method 08/17/25 08:10 Room Air 08/17/25 03:04 Room Air 08/16/25 23:09 Room Air 08/16/25 22:19 Laboratory Results Abnormal lab results 08/16/25 08/16/25 08/16/25 Range/Units 11:56 12:24 17:00 WBC (4.8-10.8) K/ul RBC (4.70-6.10) M/uL Hgb (14.0-18.0) g/dL Hct (42.0-52.0) % MCV (80.0-100.0) fL MCH (25.0-34.0) pg RDW Std Deviation (36.4-46.3) fL RDW Coeff of Ele (11.5-14.5) % Sodium (136-145) mmol/L Chloride (98-107) mmol/L Creatinine (0.6-1.4) mg/dl POC Glucose 124 H 118 H (70-99) mg/dl Calcium (8.6-10.3) mg/dl Lactate Dehydrogenase 250 H (86-244) U/L Total Protein 5.4 L (6.0-8.3) gm/dl Albumin 2.9 L (3.4-5.0) gm/dl Ur Leukocyte Esterase (Negative) Urine WBC (Auto) (0-5) /hpf U Epithel Cells (Auto) (0-2) /hpf Pleural pH (7.3-7.4) 08/16/25 08/16/25 08/16/25 Range/Units 18:15 20:01 Unknown WBC (4.8-10.8) K/ul RBC (4.70-6.10) M/uL Hgb (14.0-18.0) g/dL Hct (42.0-52.0) % MCV (80.0-100.0) fL MCH (25.0-34.0) pg RDW Std Deviation (36.4-46.3) fL RDW Coeff of Ele (11.5-14.5) % Sodium (136-145) mmol/L Chloride (98-107) mmol/L Creatinine (0.6-1.4) mg/dl POC Glucose 123 H (70-99) mg/dl Calcium (8.6-10.3) mg/dl Lactate Dehydrogenase (86-244) U/L Total Protein (6.0-8.3) gm/dl Albumin (3.4-5.0) gm/dl Ur Leukocyte Esterase 1+ H (Negative) Urine WBC (Auto) 11-20 H (0-5) /hpf U Epithel Cells (Auto) 3-5 H (0-2) /hpf Pleural pH 7.56 H (7.3-7.4) 08/17/25 Range/Units 05:59 WBC 3.98 L (4.8-10.8) K/ul RBC 2.12 L (4.70-6.10) M/uL Hgb 7.8 L (14.0-18.0) g/dL Hct 23.5 L (42.0-52.0) % MCV 110.8 H (80.0-100.0) fL MCH 36.8 H (25.0-34.0) pg RDW Std Deviation 63.6 H (36.4-46.3) fL RDW Coeff of Ele 16.9 H (11.5-14.5) % Sodium 146 H (136-145) mmol/L Chloride 111 H (98-107) mmol/L Creatinine 1.72 H D (0.6-1.4) mg/dl POC Glucose (70-99) mg/dl Calcium 8.4 L (8.6-10.3) mg/dl Lactate Dehydrogenase (86-244) U/L Total Protein (6.0-8.3) gm/dl Albumin (3.4-5.0) gm/dl Ur Leukocyte Esterase (Negative) Urine WBC (Auto) (0-5) /hpf U Epithel Cells (Auto) (0-2) /hpf Pleural pH (7.3-7.4)
[2025-08-18 06:25] LABS: Anion Gap 4.0 (3-11); Blood Urea Nitrogen 21.0 mg/dl (6-23); Calcium 8.3 mg/dl (8.6-10.3); Carbon Dioxide 31.0 mmol/L (21-32); Chloride 110.0 mmol/L (98-107); Creatinine Clr Calc Pharmacy 39.2 ml/min; Glucose 88.0 mg/dl (70-99(Fasting)); Potassium 3.8 mmol/L (3.5-5.1); Sodium 145.0 mmol/L (136-145)
--- NOTE | 2025-08-18 12:41 | XRay Report ---
SINGLE VIEW CHEST CLINICAL HISTORY: Hypoxia FINDINGS: An AP, portable, upright chest radiograph is compared to study dated 08/16/2025 and correla jannette with chest CT dated 03/06/2022. A right-sided central venous infusion port is unchanged in position . The heart is enlarged noting atherosclerotic calcification of the thoracic aorta. There is pulmonar y vascular congestion with mild interstitial edema. Emphysematous changes observed. There are small p leural effusions with dependent consolidation. No pneumothorax is seen. The skeletal structures are o steopenic. There are chronic/healed right-sided rib fractures. IMPRESSION: 1. Cardiomegaly and emphysema with evidence of congestive failure and pulmonary edema. Radiographic f ollow-up to resolution is recommended. 2. Layering pleural effusions with dependent consolidation. ACT 112: Negative or not required by law. Electronically signed by: Chirag Woodruff M.D. 08/18/2025 12:40 PM
--- NOTE | 2025-08-18 12:48 | Hospitalist Progress Note ---
Date of Service August 18, 2025 Assessment & Plan (1) Acute on chronic heart failure with preserved ejection fraction: Plan: 80M with PMH CAD, HFpEF, afib not on AC due to patient preference, COPD not on O2, metastatic cancer with unknown primary, smoker who presents with SOB #Acute on chronic HFpEF -BNP elevated -CXR showing L pleural effusion and pulm edema -Required 3L NC in ED -S/p IV lasix on admission -Now on room air and volume status much improved -TTE reviewed, normal EF, some valvular dysfunction and L left pleural effusion Plan -Cr downtrending. Start lasix 40mg PO daily -Monitor renal function -Monitor resp status, cardiac monitoring -GDMT as tolerated -Anticipate DC home tomorrow pending 2 step #L large pleural effusion -Personally reviewed CXR images from this admission and on 06/21 -Pleural effusion is much large currently -S/p L thora 08/06 with 1L clear fluid removed -Calculated Lights Criteria, via serum/pleural LDH/Protein, suggestive of transudative -Likely from CHF -Personally reviewed CXR from 08/16 -On 2L NC this AM. weaned off but satting 92% on RA -Repeat CXR today read pending but per author's interpretation, improved CHF, improved L pleural effusion Plan -Personally did 6 min walk with patient. He desaturated to 87% on room air -He will need formal 2 step tomorrow and home care for home O2 -F/u on CXR read from today -F/u on fluid cytology next week #ANDRES on CKD3 -Patient states his Cr has been worsening since the beginning of this year -He states his OP physicians have attributed it to his chemo -Cr downtrending Plan -resume PO lasix today -Recheck BMP in AM -Avoid nephrotoxic agents if possible #Hypernatremia -Mild stable asymptomatic #HTN -norvasc dc by cardio -Imdur increased from 30 to 60 by cardio -Lisinopril now held due to ANDRES #Bicytopenia -Chronic -No evidence of acute blood loss -F/u heme-onc as OP #Metastatic malignancy with unknown primary -It is suspected to be lung cancer but no definitive diagnosis -Currently being observed off chemo by his oncology team -F/u on fluid analysis to r/o malignant effusion I spent a total of 61 minutes coordinating, documenting, and providing care for this patient excluding time spent in the performance of separately billed services. This included personally reviewing all current laboratories and imaging studies, medical reconciliation, outpatient chart review and discussion with specialists (2) Pleural effusion: Admission and Anticipated Discharge Date Admission Date: August 15, 2025 Subjective Patient seen and examined twice today. He is feeling well and wishes to go home. no SOB at rest or with exertion. no other complaints. Physical Exam Physical Exam: Vitals and labs reviewed General: Well appearing, NAD HEENT: EOMI, PERRLA Neck: Supple Cardiac: RRR systolic murmur Lungs: CTA no rhonchi wheezing. rales on L-improved but still present Abd: S NT ND BS positive : no connelly MSK: Full ROM. No obvious deformities Ext: No Edema cyanosis Skin: Warm, Dry Neuro: AOx3 No focal deficits. Psych: Normal Mood Results & Data Results & Data Vital Signs (Past 12 Hours) Vital Signs Temp Pulse Pulse Resp BP Pulse Ox O2 Del Method 08/18/25 08:23 70 08/18/25 08:00 Nasal Cannula 08/18/25 08:00 36.6 C 55 L 17 154/68 H 86 L Room Air 08/18/25 07:28 51 L 08/18/25 03:45 36.6 C 70 18 114/70 92 Nasal Cannula O2 Flow Rate 08/18/25 08:23 08/18/25 08:00 1 08/18/25 08:00 08/18/25 07:28 08/18/25 03:45 1 Laboratory Results Abnormal lab results 08/17/25 08/17/25 08/18/25 Range/Units 16:37 20:14 05:50 Chloride 110 H (98-107) mmol/L Creatinine 1.43 H (0.6-1.4) mg/dl POC Glucose 145 H 130 H (70-99) mg/dl Calcium 8.3 L (8.6-10.3) mg/dl 08/18/25 Range/Units 12:02 Chloride (98-107) mmol/L Creatinine (0.6-1.4) mg/dl POC Glucose 103 H (70-99) mg/dl Calcium (8.6-10.3) mg/dl
[2025-08-18] MEDS: FUROSEMIDE 40 MG TAB PO SCH (13:04)
[2025-08-19 06:51] LABS: Anion Gap 6.0 (3-11); Blood Urea Nitrogen 22.0 mg/dl (6-23); Calcium 8.4 mg/dl (8.6-10.3); Carbon Dioxide 31.0 mmol/L (21-32); Chloride 107.0 mmol/L (98-107); Creatinine Clr Calc Pharmacy 31.1 ml/min; Glucose 96.0 mg/dl (70-99(Fasting)); Potassium 3.3 mmol/L (3.5-5.1); Sodium 144.0 mmol/L (136-145)
[2025-08-19 07:49] VITALS: BP 166/56; TEMP 97.7; O2SAT 93
--- NOTE | 2025-08-19 09:42 | Discharge Summary ---
Discharge Summary Date of Service August 19, 2025 Principal Dx & Hospital Course #1 = Principal Diagnosis (1) Acute on chronic heart failure with preserved ejection fraction: 80M with PMH CAD, HFpEF, afib not on AC due to patient preference, COPD not on O 2, CKD3, metastatic cancer with unknown primary, smoker who presents with SOB. He was found to be in acute on chronic HFpEF. cardio was consulted. He was diuresed with IV lasix. He was found to have a large L pleural effusion, s/p thoracentesis. Fluid analysis suggestive of transudative effusion however cytology is still pending. His lasix was held due to rising Cr the day after admission. Cr downtrended but he required 2L NC yesterday. Repeat CXR showed improved effusion but still with some pulm edema so he was given two doses of PO lasix. His Cr michael again today to 1.8. He seems overly sensitive to diuretics. He appears euvolemic today and feels very well. He is adamant on being discharged today. 2 step done, no home O2 requirements. He and his were instructed to ask his PCP to recheck BMP later this week to ensure Cr is stable. Recommend he see a peanut blancher as OP as well. Discussed plan at length with today who agrees with plan. Clinical navigator is working on setting him up with nephrology appt. #Acute on chronic HFpEF -BNP elevated -CXR showing L pleural effusion and pulm edema -Required 3L NC in ED -S/p IV lasix on admission -Now on room air and volume status much improved -TTE reviewed, normal EF, some valvular dysfunction and L left pleural effusion Plan -Cr michael after getting a dose of lasix. He looks euvolemic, will not send on PO lasix. -Monitor renal function -Monitor resp status, cardiac monitoring -GDMT as tolerated #L large pleural effusion -Personally reviewed CXR images from this admission and on 06/21 -Pleural effusion is much large currently -S/p L thora 08/06 with 1L clear fluid removed -Calculated Lights Criteria, via serum/pleural LDH/Protein, suggestive of transudative -Likely from CHF -Personally reviewed CXR from 08/16 -On 2L NC this AM. weaned off but satting 92% on RA -Repeat CXR today read pending but per author's interpretation, improved CHF, improved L pleural effusion Plan -F/u on cytology as OP #ANDRES on CKD3 -Patient states his Cr has been worsening since the beginning of this year -He states his OP physicians have attributed it to his chemo -Cr fluctuating daily Plan -Holding lasix after today -Recheck BMP in AM -Avoid nephrotoxic agents if possible #Hypernatremia -Mild stable asymptomatic #HTN -norvasc dc by cardio -Imdur increased from 30 to 60 by cardio #Bicytopenia -Chronic -No evidence of acute blood loss -F/u heme-onc as OP #Metastatic malignancy with unknown primary -It is suspected to be lung cancer but no definitive diagnosis -Currently being observed off chemo by his oncology team -F/u on fluid analysis to r/o malignant effusion I spent a total of 45 minutes coordinating, documenting, and providing care for this patient excluding time spent in the performance of separately billed services. This included personally reviewing all current laboratories and imaging studies, medical reconciliation, outpatient chart review and discussion with specialists (2) Pleural effusion: Notes For Next Care Provider Medication Changes From Visit norvasc DC metformin DC Imdur dose increased Admission HPI Per Admitting Provider History obtained from patient and records. Medical history significant for chronic diastolic heart failure (EF 55%, TTE 2024), coronary artery disease s/p stent (2016), PAF not on anticoagulation as per patient preference, valvular heart disease (moderate MR/mild TR), PVD, hypertension, hyperlipidemia, DM2 on oral medications, COPD, metastatic cancer unknown primary status post chemotherapy, bladder cancer status post surgery, skin cancer as per records, Sofie-Mueller tear, history of BPH, recurrent UTIs, chronic pancytopenia (baseline hemoglobin 7-8), RLE cellulitis ongoing doxycycline Rx, ongoing tobacco abuse. Recent confinement last June 2025 for RLE cellulitis. Patient discharged on cefuroxime course. Worsening RLE swelling on follow-up with PC last 08/13. Patient switched to extended doxycycline course which led to improvement of of swelling. Patient more short of breath especially on exertion in the last 3 days. No unusual cough symptoms. No chest pain. Denies weight gain. Denies headache or abdominal pain symptoms. Patient actually thinks he is losing weight. Compliant with medications. Highest SBP of 170s documented at the ER. MEDICAL HISTORY: As above. SURGERIES: He had back surgery x 2 and bladder surgery, cystoscopy, small bladder tumor removal, vascular procedures, cataract surgeries, thoracoscopy/mediastinal biopsy FAMILY HISTORY: Heart disease, DM SOCIAL HISTORY: 3/4 pack daily. 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 Lungs: Clear to auscultation, decreased, no wheezes rales or rhonchi CV: S1-S2, regular Abdomen: Soft, nontender, nondistended Extremities: Right foot and ankle still somewhat erythematous and warm, however this appears to be less fiery and less swollen. Less tenderness to palpation Neuro: No focal deficits Psych: Cooperative, normal mood Updated Medication List Medication Instructions Recorded Confirmed Type atorvastatin 80 mg tablet 80 mg PO DAILY 04/22/20 08/15/25 History cholecalciferol (vitamin D3) 25 1,000 unit PO QAM 04/22/20 08/15/25 History mcg (1,000 unit) capsule (Vitamin D3) epinephrine 0.3 mg/0.3 mL 0.3 mg IM DIRECTED PRN Allergic 04/22/20 08/15/25 History injection, auto-injector Reaction metformin 500 mg tablet 500 mg PO BIDM 04/22/20 08/15/25 History nitroglycerin 0.4 mg sublingual 0.4 mg sublingual DIRECTED PRN 04/22/20 08/15/25 History tablet (Nitrostat) Chest Pain tamsulosin 0.4 mg capsule 0.4 mg PO QAM 04/22/20 08/15/25 History isosorbide mononitrate 30 mg 30 mg PO QAM 02/03/23 08/15/25 History tablet,extended release 24 hr lisinopril 2.5 mg tablet 2.5 mg PO QAM 02/03/23 08/15/25 History albuterol sulfate 90 mcg/actuation 2 inh inhalation Q4H PRN shortness 05/18/25 08/15/25 History aerosol inhaler of breath or wheezing budesonide 160 mcg-glycopyr 9 2 inh inhalation BID 05/18/25 08/15/25 History mcg-formot 4.8 mcg/actuation HFA inhaler (Breztri Aerosphere) folic acid 1 mg tablet 1 mg PO QAM 05/18/25 08/15/25 History prochlorperazine maleate 10 mg 10 mg PO Q6H PRN Nausea And 05/18/25 08/15/25 History tablet Vomiting trazodone 50 mg tablet 50 mg PO HS 05/18/25 08/15/25 History pantoprazole 40 mg tablet,delayed 40 mg PO BID #60 tabs 05/21/25 08/15/25 Rx release B-complex with vitamin C 1 cap PO QAM 06/21/25 08/15/25 History aspirin 81 mg tablet,delayed 81 mg PO QAM 06/21/25 08/15/25 History release dexamethasone 4 mg tablet 8 mg PO DIRECTED PRN DAYS 2,3,4 06/21/25 08/15/25 History OF CHEMO lidocaine-prilocaine 2.5 %-2.5 % 1 applic topical DIRECTED PRN 06/21/25 08/15/25 History topical cream ACCESSING MEDIPORT loperamide 1 mg/7.5 mL oral liquid 0.5 mg PO DAILY PRN Diarrhea 06/21/25 08/15/25 History (Imodium A-D) loratadine 10 mg tablet (Claritin) 10 mg PO DAILY PRN START DAY OF 06/21/25 History CHEMO X 5 DAYS. metoprolol succinate 50 mg 50 mg PO BID 06/21/25 08/15/25 History tablet,extended release 24 hr ondansetron HCl 8 mg tablet 8 mg PO Q8H PRN NAUSEA/VOMITING 06/21/25 08/15/25 History oxycodone 5 mg tablet 5 mg PO Q4H PRN pain #10 tabs 06/23/25 08/15/25 Rx L.acidop,casei,lactis,rham-B.lact,zac 1 cap PO QAM 08/15/25 08/15/25 History 625 mg (10 billion cell) capsule (Advanced Probiotic) doxycycline hyclate 100 mg capsule 100 mg PO AMHS 08/15/25 08/15/25 History isosorbide mononitrate 60 mg 60 mg PO QAM 30 days #30 tabs 08/19/25 Rx tablet,extended release 24 hr Hospital Stay Data Consultations 08/15/25 19:59 ED Decision to Admit Stat 08/16/25 00:22 Consult Cardiology Routine Diagnostic Imagining Performed 08/16/25 05:05 US liver Routine 08/16/25 11:54 IR thoracentesis wo tube US Routine Pending Results Patient Have Any Pending Studies at Discharge: Yes Discharge Instructions Given to Patient (Per Discharging Provider) Please ask your PCP to order renal function panel on -tuesday. Please let your PCP know that your metformin had to be discontinued due to your kidney function. Ask your PCP for an alternative agent if needed. Please ask your PCP for a nephrology referal. Please follow up with your oncologist and acid treater. If you do not hear from us, please call your oncologist for results on the pleural fluid cytology Total Time Total Time Spent Total Time Spent (In Minutes): 45
[2025-08-19 10:37] VITALS: PULSE 64; RESP 17
== END 2025-08-19 11:00 | disposition home or self-care (01) | DRG 291 ==
LOC: ED 16:23 → 4W 20:32

== ENCOUNTER 2025-09-24 14:34 | Inpatient (IN) ==
[2025-09-24] MEDS: SODIUM CHLORIDE 0.9% 1,000 ML IV ONE (14:46)
--- NOTE | 2025-09-24 14:52 | Emergency Department Note ---
ED DC CONDITION Conditon at Discharge Condition at Discharge: Good Impression & Plan Hypoxia Admission ED Provider Note HPI: History obtained from patient. The patient is a 80-year-old gentleman with history of CHF, paroxysmal atrial fibrillation not on anticoagulation per patient preference, COPD not currently on oxygen at home, CAD, hypertension, metastatic cancer with unknown primary on chemotherapy, who presents the emergency department with a chief complaint of generalized weakness, diarrhea, and vomiting for the past 3 days. Patient states that he has felt very low energy and generally weak. On arrival here to the emergency room, the patient was noted to be hypoxic at 84% on room air, patient states he does feel some dyspnea but denies any chest pain. Patient was also noted to be tachycardic at 150 with a presenting blood pressure of 74/54. Patient was placed urgently in critical bay A1 for further assessment. ROS: - Per HPI Differential Diagnosis: Sepsis, pneumonia, COPD exacerbation, CAD/ACS, acute CHF exacerbation/pulmonary edema, pleural effusion, PE, viral gastroenteritis, colitis, small bowel obstruction, other viral infection to include influenza A, COVID-19, amongst other potential pathologies. *Outpatient medications and allergy history reviewed. PE: General: Alert, frail-appearing HEENT: Normocephalic, trachea midline Eyes: Extraocular eye movement is intact, no scleral erythema Pulmonary: Diminished bilateral breath sounds Cardio: Tachycardic rate with irregular rhythm GI: Abdomen is soft to palpation : No suprapubic tenderness MSK: No evidence of trauma or malformation of the extremities, no edema Skin: No evidence of rash Neuro: Alert, no focal deficits Psychiatric: Cooperative INDEPENDENT INTERPRETATIONS: alarm security or surveillance monitor: (As interpreted by myself): - An order was placed for continuous cardiac monitoring - Patient was noted to be in atrial fibrillation with a rate of 153 EKG: (As interpreted by myself): Rate: 156 Rhythm: Suspected atrial fibrillation Intervals: Within normal limits ST changes: No ST elevation Time: 1446 EKG #2: (As interpreted by myself): Rate: 64 Rhythm: Sinus rhythm Intervals: Within normal limits ST changes: No ST elevation Time: 1621 Chest x-ray: (As interpreted by myself): Pulmonary edema pattern Interventions provided in ED: - IV fluid bolus, IV metoprolol, IV ceftriaxone, IV azithromycin Medical Decision Making: Shortly after the patient arrived IV was established and lab work obtained, patient was placed on school lunch monitor. Patient was placed on supplemental oxygen given presenting hypoxia. Lab work shows a mild leukopenia at 3.46, hemoglobin is 9.4 which appears to be near the patient's baseline, platelet count is 44, venous blood gas shows a pH of 7.34, pCO2 is normal at 49. CMP does not show any evidence of any critical electrolyte findings, creatinine is noted to be elevated at 3.25, baseline appears to be around 1.6-1.7. Lactic acid is normal at 1.8, troponin is markedly elevated at 611, BNP is 1006. EKG per my interpretation shows atrial fibrillation with RVR without obvious acute ischemic changes. Patient denies any chest pain. Chest x-ray suggestive of pulmonary edema, cannot rule out possible underlying infectious etiology. Procalcitonin is elevated at 1.04 therefore the patient was treated with IV ceftriaxone and IV azithromycin given his allergy profile. Given the patient's diarrhea, CT imaging of the abdomen pelvis was obtained and is suggestive of ileus and diverticulitis. Anaerobic coverage was therefore added with Flagyl. Patient had recurrent issues with tachycardia while here in the ED, initial atrial fibrillation with RVR improved with IV fluids and the patient converted to sinus rhythm for some period of time. He then again went into a tachyarrhythmia and was given a dose of IV metoprolol with good improvement in his rate and then good improvement in his blood pressure when his rate was under better control. Patient unfortunately again went into a supraventricular tachycardia. At this time I did discuss the patient's presentation with on-call [facility] cardiology, Dr. Rivera, he recommended continued IV fluids and pressors if needed given that the patient was hypotensive when he got tachycardic. He recommended against rate control agents at this point given that the patient was hypotensive. At this point I did discuss the patient's case with the on-call ICU attending, Dr. Sheridan, and by the time we were conversing over the phone the patient had again converted into sinus rhythm and pressure was greater than 100. Given that he was hemodynamically stable she recommended admission to the medicine service and consultation for ICU care if needed if the patient status were to again change. Patient remained stable otherwise on 8 L OxyMask and on my reassessment he is hemodynamically stable and saturating at 100% on OxyMask. I suspect at this point that his symptoms are likely secondary to pulmonary edema and NSTEMI with possible underlying infectious etiology from pneumonia or diverticulitis. Cultures were drawn and the patient was treated with IV antibiotics as stated, plan at this point was for admission to the medicine service and I did discuss the patient's presentation with the on-call midlevel provider for the [facility] medical service, patient was placed for admission to the service of Dr. Meyer for further care. Patient was in agreement to this plan and he was placed for admission in improved condition. Consultants/Discussions held with other healthcare providers: - Hospitalist, Dr. Meyer - Cardiology, Dr. Rivera - ICU, Dr. Sheridan Disposition discussion held by myself with: - Patient * CRITICAL CARE TIME: ( 76 ) minutes - Stabilization of patient with presenting hypoxia 84% on room air requiring supplemental oxygen for correction, stabilization of presenting hypotension in the 70s systolic requiring IV fluids, stabilization of tachyarrhythmia/atrial fibrillation with RVR requiring IV fluids and rate control agents, interpretation of diagnostic studies including multiple EKGs, discussion with multiple subspecialty physicians including ICU and cardiology, discussion with patient, discussion with other physicians and arrangement of admission. Diagnosis: 1. NSTEMI, acute 2. Hypoxia, acute 3. Atrial fibrillation with RVR, acute 4. Diverticulitis flare, acute 5. Pulmonary edema, acute 6. Elevated procalcitonin, acute 7. Acute renal failure 8. Leukopenia, acute 9. Thrombocytopenia, acute 10. History of metastatic cancer, on chemotherapy Disposition: Admission Luke Banegas DO Emergency Medicine Past Med/Surg History Problem List (Updated 09/24/25 @ 22:54 by Luke Banegas DO) Hypoxia (Acute) Elevated troponin Acute kidney injury superimposed on stage 3a chronic kidney disease Diverticulitis Ileus Acute hypoxic respiratory failure Pulmonary edema Volume overload Pleural effusion Acute on chronic heart failure with preserved ejection fraction Congestive heart failure (Acute) Cellulitis of leg, right (Acute) Cellulitis and abscess of foot (Acute) Shortness of breath (Acute) Anemia (Acute) Drug-induced liver injury Symptomatic anemia SOB (shortness of breath) Pancytopenia due to chemotherapy Metastatic cancer Sofie-Mueller tear Acute on chronic blood loss anemia UGIB (upper gastrointestinal bleed) History of lung cancer (Acute) Thrombocytopenia (Acute) Anemia (Acute) Vomiting of blood (Acute) Acute bronchitis (Acute) Closed head injury (Acute) Concussion (Acute) Concussion (Acute) Occipital scalp laceration (Acute) Stented coronary artery Upper respiratory infection (Acute) Work related injury (Acute) Renal colic (Acute) Bilateral ureteral calculi (Acute) Hydronephrosis (Acute) Acute UTI (Acute) Leukocytosis (Acute) Melanoma Mohs x2 ANDRES (acute kidney injury) Encounter for pre-operative examination Left ureteral calculus Benign prostatic hyperplasia (BPH) with straining on urination Encounter for pre-operative examination Encounter for pre-operative examination Nephrolithiasis Pneumonia (Acute) Hypoxic (Acute) Hypomagnesemia (Acute) Acute hypoxemic respiratory failure HTN (hypertension) Paroxysmal atrial fibrillation 2010 had episode after back surgery and no problems since. Zio monitoring in Jun 2019 showed no evidence of recurrent atrial fibrillation follow with Dr. Carroll/ [facility] Bladder cancer dx'd 2007. BCG treatment + surgery CAD (coronary artery disease) Follows with Laura S/p DULCE to ramus that had collaterals to the right on 06/2017 COPD (chronic obstructive pulmonary disease) Diabetes mellitus, type II NIDDM Medical History PAD (peripheral artery disease) Mild bilateral ICA disease (per 2019 carotid duplex) Arterial doppler of LE showed mild PAD on right side (April 2021) History of Mohs micrographic surgery for skin cancer History of gout History of melanoma Hyperlipidemia BPH (benign prostatic hyperplasia) Myocardial Infarction 1996 > anterior wall [place] Kidney stone 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 Surgical History History of urologic surgery History of cancer surgery bladder History of cystoscopy History of tooth extraction History of lithotripsy recent--08/21/21 @ [place] History of cardiac cath 2017 > 1 STENT > [facility] Hx of colonoscopy History of lumbar spinal fusion 2010 1968 Family History Father Diabetes Grandmother (Paternal) Diabetes Other Cancer Coronary heart disease Hypertension No family history of adverse response to anesthesia Social History Smoking Status: Current every day smoker Tobacco Type: Cigarettes Cigarettes Per Day: 3; Second Hand Exposure: Yes; Do You Dip or Chew Tobacco: No; Hx Alcohol Use: No Hx Substance Use: No Preferred Language: Irish Communication Ability: Effective Case Finisher Required: No Beliefs That Will Affect Care: None marital status: Current Living Situation: Spouse Current Living Situation Comment: with Other Information That Helps Us Care for You: No Feels Safe at Home: Yes Safety Concerns: Feels Safe At This Time Assistive Devices: Denture - Upper, Denture - Lower, Glasses and Walker Assistive Devices Comment: dentures at home Allergies Allergies Allergy/AdvReac Type Severity Reaction Status Date / Time bee venom protein (honey bee) Allergy Severe ANAPHYLAXIS Verified 06/21/25 20:53 cephalexin [From Keflex] Allergy Unknown CAN'T Verified 06/21/25 20:53 MD CHIDI ADDED TO LIST Home Meds Home Medications Medication Instructions Recorded Confirmed atorvastatin 80 mg tablet 80 mg PO DAILY 04/22/20 09/24/25 cholecalciferol (vitamin D3) 25 1,000 unit PO QAM 04/22/20 09/24/25 mcg (1,000 unit) capsule (Vitamin D3) epinephrine 0.3 mg/0.3 mL 0.3 mg IM DIRECTED PRN Allergic 04/22/20 09/24/25 injection, auto-injector Reaction nitroglycerin 0.4 mg sublingual 0.4 mg sublingual DIRECTED PRN 04/22/20 09/24/25 tablet (Nitrostat) Chest Pain tamsulosin 0.4 mg capsule 0.4 mg PO QAM 04/22/20 09/24/25 lisinopril 2.5 mg tablet 2.5 mg PO QAM 02/03/23 09/24/25 albuterol sulfate 90 mcg/actuation 2 inh inhalation Q4H PRN shortness 05/18/25 09/24/25 aerosol inhaler of breath or wheezing budesonide 160 mcg-glycopyr 9 2 inh inhalation BID 05/18/25 09/24/25 mcg-formot 4.8 mcg/actuation HFA inhaler (Breztri Aerosphere) folic acid 1 mg tablet 1 mg PO QAM 05/18/25 09/24/25 prochlorperazine maleate 10 mg 10 mg PO Q6H PRN Nausea And 05/18/25 09/24/25 tablet Vomiting trazodone 50 mg tablet 50 mg PO HS 05/18/25 09/24/25 B-complex with vitamin C 1 cap PO QAM 06/21/25 09/24/25 aspirin 81 mg tablet,delayed 81 mg PO QAM 06/21/25 09/24/25 release dexamethasone 4 mg tablet 8 mg PO DIRECTED PRN DAYS 2,3,4 06/21/25 09/24/25 OF CHEMO lidocaine-prilocaine 2.5 %-2.5 % 1 applic topical DIRECTED PRN 06/21/25 09/24/25 topical cream ACCESSING MEDIPORT loperamide 1 mg/7.5 mL oral liquid 0.5 mg PO DAILY PRN Diarrhea 06/21/25 09/24/25 (Imodium A-D) loratadine 10 mg tablet (Claritin) 10 mg PO DAILY PRN START DAY OF 06/21/25 09/24/25 CHEMO X 5 DAYS. metoprolol succinate 50 mg 50 mg PO BID 06/21/25 09/24/25 tablet,extended release 24 hr ondansetron HCl 8 mg tablet 8 mg PO Q8H PRN NAUSEA/VOMITING 06/21/25 09/24/25 L.acidop,casei,lactis,rham-B.lact,zac 1 cap PO QAM 08/15/25 09/24/25 625 mg (10 billion cell) capsule (Advanced Probiotic) Previous Rx's Medication Instructions Recorded pantoprazole 40 mg tablet,delayed 40 mg PO BID #60 tabs 05/21/25 release oxycodone 5 mg tablet 5 mg PO Q4H PRN pain #10 tabs 06/23/25 Results & Data (ED) Vital Signs Vital Signs - 24 hr 09/24/25 14:38 09/24/25 14:43 09/24/25 14:58 Temperature 36.7 C Temperature Source Temporal Artery Scan Pulse Rate 157 H 155 H Pulse Rate [Apical] 150 H Pulse Rhythm [Apical] Respiratory Rate 20 18 Respiratory Effort / Characteristics Respiratory Depth Respiratory Pattern Blood Pressure 75/54 L Blood Pressure [Left Arm] 80/63 L Blood Pressure Mean 61 Blood Pressure Mean [Left Arm] 68 Pulse Oximetry 84 L 90 Oxygen Delivery Method Room Air Nasal Cannula Oxygen Flow Rate 6 Sepsis Recent Fever Within 48 Hours No Sepsis New/Unexplained Change in Mental Status No Sepsis Action Taken by Nursing Physician Notified 09/24/25 15:00 09/24/25 15:00 09/24/25 15:15 Temperature Temperature Source Pulse Rate Pulse Rate [Apical] 113 H 65 Pulse Rhythm [Apical] Respiratory Rate 18 20 Respiratory Effort / Characteristics Spontaneous Respiratory Depth Respiratory Pattern Regular Blood Pressure Blood Pressure [Left Arm] 91/64 L 113/59 L Blood Pressure Mean Blood Pressure Mean [Left Arm] 73 77 Pulse Oximetry 89 L 88 L 97 Oxygen Delivery Method Nasal Cannula Nasal Cannula Oxymask Oxygen Flow Rate 6 6 8 Sepsis Recent Fever Within 48 Hours Sepsis New/Unexplained Change in Mental Status Sepsis Action Taken by Nursing 09/24/25 15:16 09/24/25 15:29 09/24/25 15:35 Temperature Temperature Source Pulse Rate 66 Pulse Rate [Apical] 71 152 H Pulse Rhythm [Apical] Respiratory Rate 19 19 Respiratory Effort / Characteristics Spontaneous Respiratory Depth Normal Respiratory Pattern Regular Regular Blood Pressure Blood Pressure [Left Arm] 109/59 L 97/68 L Blood Pressure Mean Blood Pressure Mean [Left Arm] 75 77 Pulse Oximetry 93 95 Oxygen Delivery Method Oxymask Oxymask Oxygen Flow Rate 5 5 Sepsis Recent Fever Within 48 Hours Sepsis New/Unexplained Change in Mental Status Sepsis Action Taken by Nursing 09/24/25 15:40 09/24/25 15:51 09/24/25 16:10 Temperature Temperature Source Pulse Rate Pulse Rate [Apical] 149 H 147 H 149 H Pulse Rhythm [Apical] Respiratory Rate 20 18 19 Respiratory Effort / Characteristics Spontaneous Respiratory Depth Respiratory Pattern Regular Blood Pressure Blood Pressure [Left Arm] 102/75 102/74 94/69 L Blood Pressure Mean Blood Pressure Mean [Left Arm] 84 83 77 Pulse Oximetry 94 93 95 Oxygen Delivery Method Oxymask Oxymask Oxymask Oxygen Flow Rate 5 5 11 Sepsis Recent Fever Within 48 Hours Sepsis New/Unexplained Change in Mental Status Sepsis Action Taken by Nursing 09/24/25 16:17 09/24/25 16:21 09/24/25 16:35 Temperature Temperature Source Pulse Rate Pulse Rate [Apical] 149 H 67 64 Pulse Rhythm [Apical] Irregular Irregular Respiratory Rate 20 20 18 Respiratory Effort / Characteristics Spontaneous Spontaneous Spontaneous Respiratory Depth Respiratory Pattern Regular Regular Regular Blood Pressure Blood Pressure [Left Arm] 95/77 L 97/57 L 100/63 Blood Pressure Mean Blood Pressure Mean [Left Arm] 83 70 75 Pulse Oximetry 93 95 96 Oxygen Delivery Method Oxymask Oxymask Oxymask Oxygen Flow Rate 10 10 10 Sepsis Recent Fever Within 48 Hours Sepsis New/Unexplained Change in Mental Status Sepsis Action Taken by Nursing 09/24/25 16:36 09/24/25 16:40 09/24/25 16:51 Temperature Temperature Source Pulse Rate Pulse Rate [Apical] 153 H 147 H 146 H Pulse Rhythm [Apical] Respiratory Rate 18 20 Respiratory Effort / Characteristics Spontaneous Respiratory Depth Respiratory Pattern Regular Blood Pressure Blood Pressure [Left Arm] 87/64 L 104/57 L Blood Pressure Mean Blood Pressure Mean [Left Arm] 71 72 Pulse Oximetry 96 94 Oxygen Delivery Method Oxymask Oxymask Oxygen Flow Rate 8 8 Sepsis Recent Fever Within 48 Hours Sepsis New/Unexplained Change in Mental Status Sepsis Action Taken by Nursing 09/24/25 16:52 09/24/25 16:55 09/24/25 17:07 Temperature Temperature Source Pulse Rate Pulse Rate [Apical] 66 155 H 146 H Pulse Rhythm [Apical] Respiratory Rate 18 Respiratory Effort / Characteristics Spontaneous Respiratory Depth Normal Respiratory Pattern Regular Blood Pressure Blood Pressure [Left Arm] 84/65 L Blood Pressure Mean Blood Pressure Mean [Left Arm] 71 Pulse Oximetry 95 Oxygen Delivery Method Oxymask Oxygen Flow Rate 8 Sepsis Recent Fever Within 48 Hours Sepsis New/Unexplained Change in Mental Status Sepsis Action Taken by Nursing 09/24/25 17:24 09/24/25 17:28 09/24/25 17:43 Temperature Temperature Source Pulse Rate Pulse Rate [Apical] 71 66 66 Pulse Rhythm [Apical] Respiratory Rate 19 18 20 Respiratory Effort / Characteristics Spontaneous Spontaneous Spontaneous Respiratory Depth Normal Respiratory Pattern Regular Regular Regular Blood Pressure Blood Pressure [Left Arm] 92/69 L 102/60 106/61 Blood Pressure Mean Blood Pressure Mean [Left Arm] 76 74 76 Pulse Oximetry 94 95 98 Oxygen Delivery Method Oxymask Oxymask Oxymask Oxygen Flow Rate 8 8 8 Sepsis Recent Fever Within 48 Hours Sepsis New/Unexplained Change in Mental Status Sepsis Action Taken by Nursing 09/24/25 17:57 09/24/25 18:06 Temperature Temperature Source Pulse Rate Pulse Rate [Apical] 67 66 Pulse Rhythm [Apical] Respiratory Rate 18 18 Respiratory Effort / Characteristics Spontaneous Respiratory Depth Normal Respiratory Pattern Regular Blood Pressure Blood Pressure [Left Arm] 108/59 L 111/58 L Blood Pressure Mean Blood Pressure Mean [Left Arm] 75 75 Pulse Oximetry 100 99 Oxygen Delivery Method Oxymask Oxymask Oxygen Flow Rate 8 8 Sepsis Recent Fever Within 48 Hours Sepsis New/Unexplained Change in Mental Status Sepsis Action Taken by Nursing Laboratory Data 09/24/25 14:51 09/24/25 14:51 Lab Results 09/24/25 09/24/25 09/24/25 Range/Units 14:51 14:54 15:02 WBC 3.46 L (4.8-10.8) K/ul RBC 2.56 L (4.70-6.10) M/uL Hgb 9.4 L (14.0-18.0) g/dL POC Hgb 9.2 L (14.0-18.0) g/dl Hct 29.1 L (42.0-52.0) % POC Hct 27 L (42-52) % MCV 113.7 H (80.0-100.0) fL MCH 36.7 H (25.0-34.0) pg MCHC 32.3 (32.0-36.0) g/dL RDW Std Deviation 64.9 H (36.4-46.3) fL RDW Coeff of Ele 15.5 H (11.5-14.5) % Plt Count 44 L (130-400) K/uL MPV 13.9 H (9.4-12.4) fL Immature Gran % (Auto) 0.3 % Neut % (Auto) 72.3 % Lymph % (Auto) 13.3 % [place] % (Auto) 12.1 % Eos % (Auto) 0.0 % Baso % (Auto) 2.0 % Neut # (Auto) 2.50 (1.40-6.50) K/uL Lymph # (Auto) 0.46 L (1.20-3.40) K/uL [place] # (Auto) 0.42 (0.11-0.59) K/uL Eos # (Auto) 0.00 (0.00-0.50) K/uL Baso # (Auto) 0.07 (0.00-0.20) K/uL Immature Gran # (Auto) 0.01 (0.01-0.20) K/uL Toxic Granulation 2+ Toxic Vacuolation 1+ Dohle Bodies 3+ Macrocytosis Present Ovalocytes 1+ Acanthocytes (Spur) 1+ VBG pH 7.34 L (7.36-7.41) VBG pCO2 49 (38-50) mmHg VBG pO2 24 mmHg VBG HCO3 26 mmol/L VBG O2 Saturation < 60.0 % VBG Base Excess 0.3 mEq/L POC Sodium 142 (135-144) mmol/L Sodium 141 (136-145) mmol/L POC Potassium 5.0 (3.3-5.0) mmol/L Potassium 4.8 (3.5-5.1) mmol/L POC Chloride 106 (101-112) mmol/L Chloride 107 (98-107) mmol/L Carbon Dioxide 26 (21-32) mmol/L POC Total CO2 24 (24-31) mmol/L Anion Gap 8 (3-11) POC Anion Gap 18.0 (16-25) mmol/L POC BUN 45 H (7-18) mg/dl BUN 47 H (6-23) mg/dl Creatinine 3.25 H (0.6-1.4) mg/dl POC Creatinine 3.3 H (0.6-1.3) mg/dl Est Cr Clr Drug Dosing 17.2 ml/min eGFR 18.61 BUN/Creatinine Ratio 14.5 (10-20) Glucose 121 H (70-99(Fasting)) mg/dl POC Glucose (other) 111 H (70-99) mg/dl Lactate 1.8 (0.4-2.0) mmol/L Calcium 7.7 L (8.6-10.3) mg/dl POC Ioniz Calcium Anthony 1.06 L (1.12-1.32) mmol/l Magnesium 2.1 (1.7-2.4) mg/dl Total Bilirubin 1.1 H (0.2-1.0) mg/dl Direct Bilirubin 0.5 H (0-0.2) mg/dl AST 53 H (13-39) U/L ALT 34 (7-52) U/L Alkaline Phosphatase 112 H (34-104) U/L Troponin I High Sens 611.8 H* (0-20) pg/ml B-Natriuretic Peptide 1006 H (0-100) pg/ml Total Protein 5.7 L (6.0-8.3) gm/dl Albumin 2.9 L (3.4-5.0) gm/dl Procalcitonin 1.04 H (0-0.5) ng/ml Adenovirus (PCR) Not Detected (NotDetected) B. pertussis DNA (PCR) Not Detected (NotDetected) B.parapertussis DNA PCR Not Detected (NotDetected) C. pneumoniae DNA (PCR) Not Detected (NotDetected) Coronavirus OC43 (PCR) Not Detected (NotDetected) Coronavirus HKU1 (PCR) Not Detected (NotDetected) Coronavirus 229E (PCR) Not Detected (NotDetected) SARS-CoV-2 (PCR) Not Detected (NotDetected) Coronavirus NL63 (PCR) Not Detected (NotDetected) Human Metapneumovir PCR Not Detected (NotDetected) Influenza Type A (PCR) Not Detected (NotDetected) Influenza Type B (PCR) Not Detected (NotDetected) M. pneumoniae (PCR) Not Detected (NotDetected) Parainfluenza 1 (PCR) Not Detected (NotDetected) Parainfluenza 2 (PCR) Not Detected (NotDetected) Parainfluenza 3 (PCR) Not Detected (NotDetected) Parainfluenza 4 (PCR) Not Detected (NotDetected) RSV (PCR) Not Detected (NotDetected) Entero/Rhino (PCR) Not Detected (NotDetected) 09/24/25 Range/Units 16:57 WBC (4.8-10.8) K/ul RBC (4.70-6.10) M/uL Hgb (14.0-18.0) g/dL POC Hgb (14.0-18.0) g/dl Hct (42.0-52.0) % POC Hct (42-52) % MCV (80.0-100.0) fL MCH (25.0-34.0) pg MCHC (32.0-36.0) g/dL RDW Std Deviation (36.4-46.3) fL RDW Coeff of Ele (11.5-14.5) % Plt Count (130-400) K/uL MPV (9.4-12.4) fL Immature Gran % (Auto) % Neut % (Auto) % Lymph % (Auto) % [place] % (Auto) % Eos % (Auto) % Baso % (Auto) % Neut # (Auto) (1.40-6.50) K/uL Lymph # (Auto) (1.20-3.40) K/uL [place] # (Auto) (0.11-0.59) K/uL Eos # (Auto) (0.00-0.50) K/uL Baso # (Auto) (0.00-0.20) K/uL Immature Gran # (Auto) (0.01-0.20) K/uL Toxic Granulation Toxic Vacuolation Dohle Bodies Macrocytosis Ovalocytes Acanthocytes (Spur) VBG pH (7.36-7.41) VBG pCO2 (38-50) mmHg VBG pO2 mmHg VBG HCO3 mmol/L VBG O2 Saturation % VBG Base Excess mEq/L POC Sodium (135-144) mmol/L Sodium (136-145) mmol/L POC Potassium (3.3-5.0) mmol/L Potassium (3.5-5.1) mmol/L POC Chloride (101-112) mmol/L Chloride (98-107) mmol/L Carbon Dioxide (21-32) mmol/L POC Total CO2 (24-31) mmol/L Anion Gap (3-11) POC Anion Gap (16-25) mmol/L POC BUN (7-18) mg/dl BUN (6-23) mg/dl Creatinine (0.6-1.4) mg/dl POC Creatinine (0.6-1.3) mg/dl Est Cr Clr Drug Dosing ml/min eGFR BUN/Creatinine Ratio (10-20) Glucose (70-99(Fasting)) mg/dl POC Glucose (other) (70-99) mg/dl Lactate (0.4-2.0) mmol/L Calcium (8.6-10.3) mg/dl POC Ioniz Calcium Anthony (1.12-1.32) mmol/l Magnesium (1.7-2.4) mg/dl Total Bilirubin (0.2-1.0) mg/dl Direct Bilirubin (0-0.2) mg/dl AST (13-39) U/L ALT (7-52) U/L Alkaline Phosphatase (34-104) U/L Troponin I High Sens 679.6 H* (0-20) pg/ml B-Natriuretic Peptide (0-100) pg/ml Total Protein (6.0-8.3) gm/dl Albumin (3.4-5.0) gm/dl Procalcitonin (0-0.5) ng/ml Adenovirus (PCR) (NotDetected) B. pertussis DNA (PCR) (NotDetected) B.parapertussis DNA PCR (NotDetected) C. pneumoniae DNA (PCR) (NotDetected) Coronavirus OC43 (PCR) (NotDetected) Coronavirus HKU1 (PCR) (NotDetected) Coronavirus 229E (PCR) (NotDetected) SARS-CoV-2 (PCR) (NotDetected) Coronavirus NL63 (PCR) (NotDetected) Human Metapneumovir PCR (NotDetected) Influenza Type A (PCR) (NotDetected) Influenza Type B (PCR) (NotDetected) M. pneumoniae (PCR) (NotDetected) Parainfluenza 1 (PCR) (NotDetected) Parainfluenza 2 (PCR) (NotDetected) Parainfluenza 3 (PCR) (NotDetected) Parainfluenza 4 (PCR) (NotDetected) RSV (PCR) (NotDetected) Entero/Rhino (PCR) (NotDetected) Administered Medications Fluticasone Furoate (Fluticasone Furoate 200mcg 14 Puffs/Inhaler) 1 puffs INH DAILY CHANELLE Stop: 10/24/25 21:44 Last Admin: 09/24/25 22:23 Dose: 1 puffs Documented By: BERTRAM Sodium Chloride (Nss) 1,000 mls @ 80 mls/hr IV .[id number] [facility] Stop: 09/27/25 19:14 Last Admin: 09/24/25 19:32 Dose: 80 mls/hr Documented By: micha Insulin Aspart (Insulin Aspart Per Unit Charge) 0 units SC Q6 CHANELLE Stop: 10/24/25 18:59 Last Admin: 09/24/25 20:03 Dose: Not Given Documented By: asm Metoprolol Succinate (Metoprolol Succ 50mg Ext Rel Tab) 50 mg PO BID [facility] Stop: 10/24/25 21:44 Last Admin: 09/24/25 22:23 Dose: 50 mg Documented By: Freya Pantoprazole Sodium (Pantoprazole 40 Mg Tab) 40 mg PO BID [facility] Stop: 10/24/25 20:59 Last Admin: 09/24/25 22:22 Dose: 40 mg Documented By: TMG Umeclidinium/Vilanterol (Umeclidinium/Vilanterol 62.5/25mcg 7 Puffs/Inhaler) 1 puffs INH DAILY [facility] Stop: 10/24/25 21:44 Last Admin: 09/24/25 22:22 Dose: 1 puffs Documented By: TMG Discontinued Medications Sodium Chloride (Nss) 1,000 mls @ 999 mls/hr IV .Q1H1M ONE Stop: 09/24/25 15:43 Last Infusion: 09/24/25 16:11 Dose: Infused Documented By: Admin: 09/24/25 14:46 Dose: 999 mls/hr Documented By: MARK Levofloxacin/Dextrose (Levaquin/D5w) 750 mg in 150 mls @ 100 mls/hr IV NOW STA Stop: 09/24/25 16:35 Last Admin: 09/24/25 15:27 Dose: Not Given Documented By: MARK Ceftriaxone Sodium (Rocephin) 2,000 mg in 50 mls @ 100 mls/hr IV NOW STA Stop: 09/24/25 15:58 Last Infusion: 09/24/25 16:10 Dose: Infused Documented By: Admin: 09/24/25 15:34 Dose: 100 mls/hr Documented By: MARK Azithromycin (Zithromax) 500 mg in 255 mls @ 127.5 mls/hr IV NOW ONE Stop: 09/24/25 17:29 Last Infusion: 09/24/25 18:12 Dose: Infused Documented By: Admin: 09/24/25 16:10 Dose: 127.5 mls/hr Documented By: MARK Sodium Chloride (Nss) 500 mls @ 999 mls/hr IV .Q31M ONE Stop: 09/24/25 17:51 Last Infusion: 09/24/25 18:00 Dose: Infused Documented By: Admin: 09/24/25 17:28 Dose: 999 mls/hr Documented By: MARK Metronidazole (Flagyl) 500 mg in 100 mls @ 100 mls/hr IV NOW STA; Protocol Stop: 09/24/25 18:30 Last Infusion: 09/24/25 18:42 Dose: Infused Documented By: Admin: 09/24/25 17:42 Dose: 100 mls/hr Documented By: NA Piperacillin Sod/Tazobactam Sod (Zosyn) 4.5 gm in 100 mls @ 200 mls/hr IV ONE STA; Protocol Stop: 09/24/25 19:36 Last Infusion: 09/24/25 19:55 Dose: Infused Documented By: Admin: 09/24/25 19:25 Dose: 200 mls/hr Documented By: asm Metoprolol Tartrate (Metoprolol Tartrate 1 Mg/Ml Vial) 5 mg IV NOW STA Stop: 09/24/25 15:37 Last Admin: 09/24/25 15:39 Dose: 5 mg Documented By: NA Metoprolol Tartrate (Metoprolol Tartrate 1 Mg/Ml Vial) Confirm Administered Dose 5 mg IV .STK-MED ONE Stop: 09/24/25 15:38 Last Admin: 09/24/25 15:39 Dose: Not Given Documented By: NA Non-Formulary Medication (Ynqdjagfce-Ayoxrywx-Tmtvaxhbfg [Breztri Aerosphere]) 2 puffs INH BID [facility] Stop: 10/24/25 20:59 Last Admin: 09/24/25 22:32 Dose: Not Given Documented By: TMG Imaging Data Radiologist's Impression: Chest X-Ray 09/24/25 14:44 XR chest 1V portable CLINICAL HISTORY: Sepsis. COMPARISON STUDY: Chest CT March 06, 2022. Chest radiograph August 18, 2025 FINDINGS: Right internal jugular [id number]-y-Rcwa remains in place. There is no pneumothorax. A small to moderate left pleural effusion is noted. Cardiomegaly is again noted. Interstitial thickening is progressed. There are patchy bibasilar opacities. IMPRESSION: 1. Cardiomegaly with progression of interstitial pulmonary edema. 2. Patchy bibasilar opacities which could represent pneumonia or atelectasis. Radiographic follow-up is recommended. 2. Small to moderate left pleural effusion. ACT 112: Negative or not required by law. Electronically signed by: Alli Espinoza M.D. 09/24/2025 3:01 PM Abdomen/Pelvis CT 09/24/25 15:29 EXAM: CT Abdomen and Pelvis Without Intravenous Contrast INDICATION: Vomiting and diarrhea TECHNIQUE: Axial computed tomography images of the abdomen and pelvis without intravenous contrast. Sagittal and coronal reformatted images were created and reviewed. This CT exam was performed using one or more of the following dose reduction techniques: automated exposure control, adjustment of the mA and/or kV according to patient size, and/or use of iterative reconstruction technique. COMPARISON: 02/03/2023 FINDINGS: Limitations: None. Lung bases: There is consolidation in the dependent lower lobes left greater than right. Pleural space: There are small layering bilateral pleural effusions. Heart: Cardiomegaly. Mediastinum: No abnormality noted. ABDOMEN: Liver: Lack of intravenous contrast limits detection of some masses. No abnormality noted. Gallbladder and bile ducts: No calcified stones or surrounding fluid. No ductal dilation. Pancreas: No pancreatic mass, calcification, inflammation or ductal dilation noted. Spleen: No acute abnormality noted. Adrenals: No acute abnormality noted. Kidneys and ureters: Stable bilateral renal cysts most of which clearly appear benign. Others are hyperdense and unchanged. Stomach and bowel: The stomach is collapsed and cannot be optimally assessed. Multiple small and large bowel loops are mildly dilated with fluid and air. Left colonic diverticula noted. Mild thickening of the lateral conal fascia identified which may reflect mild adjacent diverticulitis. No obstructing point. PELVIS: Appendix: Well seen and appears normal. Bladder: Appears normal for the degree of filling. No stones or inflammation. No large mass. Masses may not be detected in the absence of opacification. Reproductive: No abnormalities noted. ABDOMEN and PELVIS: Intraperitoneal space: No free air. No significant fluid collection. Bones/joints: No acute changes. Posterior L4-S1 fusion hardware well-seated and intact. Diffuse degenerative changes. Soft tissues: No acute abnormality noted. Vasculature: Stable atherosclerosis of the aorta with mild aneurysm of the infrarenal segment to 3.3 cm. No hemorrhage. Lymph nodes: No pathologically enlarged lymph nodes. IMPRESSION: 1. Ileus with findings suggestive of mild descending colonic acute diverticulitis. 2. Small layering pleural effusions and compressive bilateral lower lobe consolidation. 3. Stable 3.3 cm infrarenal abdominal aortic aneurysm without hemorrhage. ACR White Paper guidelines (Constance, et al. JACR 2013; 10(10):789-94) suggest abdomen/pelvis CT or MR imaging follow-up in 3 years. ACT 112: N/A Electronically signed by Michelle Fields 09-24-2025 5:21 PM Discharge Plan Visit Data Chief Complaint: Illness Stated Complaint: DIARRHEA, NAUSEA, VOMITING ED Provider: Luke Banegas Discharge Problem: Hypoxia Patient Disposition: Admitted As Inpatient Condition: Serious Discharge Instructions Interventions: ED Discharge Assessment Last Done: 09/24/25 21:01
--- NOTE | 2025-09-24 15:02 | XRay Report ---
XR chest 1V portable CLINICAL HISTORY: Sepsis. COMPARISON STUDY: Chest CT March 06, 2022. Chest radiograph August 18, 2025 FINDINGS: Right internal jugular [id number]-[id number] remains in place. There is no pneumothorax. A small to moderate left pleural effusion is noted. Cardiomegaly is again noted. Interstitial thickening is pro gressed. There are patchy bibasilar opacities. IMPRESSION: 1. Cardiomegaly with progression of interstitial pulmonary edema. 2. Patchy bibasilar opacities which could represent pneumonia or atelectasis. Radiographic follow-up is recommended. 2. Small to moderate left pleural effusion. ACT 112: Negative or not required by law. Electronically signed by: Alli Espinoza M.D. 09/24/2025 3:01 PM
[2025-09-24 15:17] LABS: Base Excess VBG 0.3 mEq/L; HCO3 VBG 26 mmol/L; Oxygen Saturation VBG < 60.0 %; PCO2 VBG 49 mmHg (38-50); PO2 VBG 24 mmHg; pH VBG 7.34 (7.36-7.41)
[2025-09-24 15:18] LABS: Hematocrit (blood only) 29.1 % (42.0-52.0); Hemoglobin 9.4 g/dL (14.0-18.0); Mean Corpuscular Hemoglobin 36.7 pg (25.0-34.0); Mean Corpuscular Volume 113.7 fL (80.0-100.0); RDW Standard Deviation 64.9 fL (36.4-46.3); Red Blood Count 2.56 M/uL (4.70-6.10)
[2025-09-24 15:19] LABS: Platelet Count 44 K/uL (130-400)
[2025-09-24 15:23] LABS: Alanine Aminotransferase 34.0 U/L (7-52); Albumin Level 2.9 gm/dl (3.4-5.0); Alkaline Phosphatase 112.0 U/L (34-104); Anion Gap 8.0 (3-11); Bilirubin,Total 1.1 mg/dl (0.2-1.0); Blood Urea Nitrogen 47.0 mg/dl (6-23); Calcium 7.7 mg/dl (8.6-10.3); Carbon Dioxide 26.0 mmol/L (21-32); Chloride 107.0 mmol/L (98-107); Creatinine Clr Calc Pharmacy 17.2 ml/min; Glucose 121.0 mg/dl (70-99(Fasting)); Magnesium 2.1 mg/dl (1.7-2.4); Potassium 4.8 mmol/L (3.5-5.1); Sodium 141.0 mmol/L (136-145); Total Protein 5.7 gm/dl (6.0-8.3)
[2025-09-24] MEDS: cefTRIAXone SODIUM 2,000 MG/50 ML BAG IV STA (15:34)
[2025-09-24 15:37] LABS: White Blood Count 3.46 K/ul (4.8-10.8)
[2025-09-24] MEDS: METOPROLOL TARTRATE 1 MG/ML VIAL IV ONE (15:39)
[2025-09-24] MEDS: METOPROLOL TARTRATE 1 MG/ML VIAL IV STA (15:39)
[2025-09-24 15:48] LABS: Acanthocytes 1+; Dohle Bodies 3+; Immature Granulocytes # (auto) 0.01 K/uL (0.01-0.20); Immature Granulocytes % (auto) 0.3 %; Macrocytosis Present; Ovalocytes 1+; Toxic Granulation 2+; Toxic Vacuolation 1+
[2025-09-24 16:10] LABS: Chlamydia pneumoniae PCR Not Detected (NotDetected); Coronavirus 229E PCR Not Detected (NotDetected); Coronavirus CoV-2 (COVID19)PCR Not Detected (NotDetected); Coronavirus HKU1 PCR Not Detected (NotDetected); Coronavirus NL63 PCR Not Detected (NotDetected); Coronavirus OC43PCR Not Detected (NotDetected); Human Metapneumovirus PCR Not Detected (NotDetected); Parainfluenza Virus 1 PCR Not Detected (NotDetected); Parainfluenza Virus 2 PCR Not Detected (NotDetected); Parainfluenza Virus 3 PCR Not Detected (NotDetected); Parainfluenza Virus 4 PCR Not Detected (NotDetected); Respiratory Syncytial VirusPCR Not Detected (NotDetected); Rhinovirus/Enterovirus PCR Not Detected (NotDetected)
[2025-09-24] MEDS: AZITHROMYCIN 500 MG/255 ML BAG IV ONE (16:10)
--- NOTE | 2025-09-24 17:21 | CT Scan Report ---
EXAM: CT Abdomen and Pelvis Without Intravenous Contrast INDICATION: Vomiting and diarrhea TECHNIQUE: Axial computed tomography images of the abdomen and pelvis without intravenous contrast. Sagittal and coronal reformatted images were created and reviewed. This CT exam was performed using one or more of the following dose reduction techniques: automated exposure control, adjustment of the mA and/or kV according to patient size, and/or use of iterative reconstruction technique. COMPARISON: 02/03/2023 FINDINGS: Limitations: None. Lung bases: There is consolidation in the dependent lower lobes left greater than right. Pleural space: There are small layering bilateral pleural effusions. Heart: Cardiomegaly. Mediastinum: No abnormality noted. ABDOMEN: Liver: Lack of intravenous contrast limits detection of some masses. No abnormality noted. Gallbladder and bile ducts: No calcified stones or surrounding fluid. No ductal dilation. Pancreas: No pancreatic mass, calcification, inflammation or ductal dilation noted. Spleen: No acute abnormality noted. Adrenals: No acute abnormality noted. Kidneys and ureters: Stable bilateral renal cysts most of which clearly appear benign. Others are hyperdense and unchanged. Stomach and bowel: The stomach is collapsed and cannot be optimally assessed. Multiple small and large bowel loops are mildly dilated with fluid and air. Left colonic diverticula noted. Mild thickening of the lateral conal fascia identified which may reflect mild adjacent diverticulitis. No obstructing point. PELVIS: Appendix: Well seen and appears normal. Bladder: Appears normal for the degree of filling. No stones or inflammation. No large mass. Masses may not be detected in the absence of opacification. Reproductive: No abnormalities noted. ABDOMEN and PELVIS: Intraperitoneal space: No free air. No significant fluid collection. Bones/joints: No acute changes. Posterior L4-S1 fusion hardware well-seated and intact. Diffuse degenerative changes. Soft tissues: No acute abnormality noted. Vasculature: Stable atherosclerosis of the aorta with mild aneurysm of the infrarenal segment to 3.3 cm. No hemorrhage. Lymph nodes: No pathologically enlarged lymph nodes. IMPRESSION: 1. Ileus with findings suggestive of mild descending colonic acute diverticulitis. 2. Small layering pleural effusions and compressive bilateral lower lobe consolidation. 3. Stable 3.3 cm infrarenal abdominal aortic aneurysm without hemorrhage. ACR White Paper guidelines (Constance, et al. JACR 2013; 10(10):789-94) suggest abdomen/pelvis CT or MR imaging follow-up in 3 years. ACT 112: N/A Electronically signed by Michelle Fields 09-24-2025 5:21 PM
[2025-09-24] MEDS: SODIUM CHLORIDE 0.9% 500 ML IV ONE (17:28)
[2025-09-24] MEDS: metroNIDAZOLE 500 MG/100 ML BAG IV STA (17:42)
--- NOTE | 2025-09-24 17:52 | History & Physical Report ---
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 Acute hypoxic respiratory failure Interstitial pulmonary edema, small to moderate L pleural effusion seen on CXR Small layering pleural effusions and compressive bilateral lower lobe consolidation seen on CTAP Acute on chronic HFpEF Resp BioFire negative. Requiring 8L OxyMask in ED, maintaining sats in the upper 90s. BNP 1006 however pt is hypotensive and appears dry on exam, s/p 1.5L IVF in the ED. Continue IVF, update TTE as per below. Prior TTE last month: EF 55%, moderately dilated LA, moderate MR, mild TR. Wean O2 as tolerated. Does have nonproductive cough/congestion and CXR reads patchy bibasilar opacities, possible PNA. Covering with IV Zosyn for now, as per below. Pulm toileting as able. May need to consider pulm consult regarding b/l effusions. N/V/D Ileus with findings suggestive of mild descending colonic acute diverticulitis on CTAP Maintain NPO status, continue IVF and PRN electrolyte repletion. S/p IV Zithromax, Rocephin and Flagyl in ED. Appreciate gen surgery consult. Empiric ABX coverage with IV Zosyn for now. Check stool PCR, C. diff studies as able. Suspected sepsis In light of WBC<4k, hypotension, tachycardia, elevated procal, suspected sources of infection. IVF and empiric ABX coverage onboard as per above. Follow blood cultures. ANDRES superimposed on CKD stage IIIa Cr previously 1.8 as of 08/19/25, appears baseline prior to that was around 1- 1.2 as per records. Cr 3.25 on presentation today. Suspect related to volume depletion ISO above, IVF onboard. Follow renal function closely, avoid nephrotoxic agents as able. Elevated troponin Possible NSTEMI; runs of SVT and Afib with RVR in ED Initial trop 611.8, repeat trop 679.6; no c/o chest pain. HR stabilized s/p 5mg IV Lopressor in ED. SR on telemetry at time of eval in ED. BP remains soft, IVF onboard. NSTEMI vs demand ischemia ISO above. Follow trop trend, check updated TTE. Appreciate cardiology consult for further recs. EKG with CP PRN. Pancytopenia Metastatic poorly-differentiated carcinoma with unknown primary, most likely origin thought pulmonary F/w [facility] oncology, Dr. Everett. Diagnosed in 2023. PET scan done on 04/23/24 which revealed metabolically active pleural-based lung nodules suspicious for metastases and metabolically active prevascular and left suprahilar lymphadenopathy. Completed 6 cycles of combination of pemetrexed plus carboplatin Keytruda with overall good tolerance. Follow-up PET scan done after 4 cycles of chemotherapy revealed good response. Was on maintenance treatment including combination of pemetrexed and Keytruda. Follow-up PET scan done on 08/07/25 revealed disease progression. Now on combination Docetaxel and Ramucirumab; last received chemotherapy on 09/17/25. Continue PRN oxy IR for cancer-related pain. Neutropenic precautions, fall precautions in light of thrombocytopenia. Chronic anemia: H/H appears stable compared to prior, continue to monitor. DMII with peripheral vascular disease: Hgb A1c 5.7% 1mo ago, SSI protocol while admitted with BSG checks ACHS. ASCVD: Continue ASA, statin therapy. COPD: Continue home inhaler. Infrarenal abdominal aortic aneurysm Appears stable on CTAP today, measuring 3.3cm. Recommend CTAP or MR imaging follow-up in 3yr as per ACR White Paper guidelines. HTN: Hold lisinopril for now given hypotension, resume as able/tolerated. PAF: Not on chemical AC per patient's preference. Continue BB for now. GERD: Continue PPI BID. BPH: Continue Flomax. Hypocalcemia: Check vit D level, continue to monitor. DVT Prophylaxis: SCDs/TEDs only for now in light of thrombocytopenia Code Status: FULL CODE - Discussed with pt at bedside in the ED. Disposition: Admit to PCU Patient seen in collaboration with Dr. Meyer. Please see addendum. I spent a total of 88 minutes coordinating, documenting, and providing care for this patient excluding time spent in the performance of separately billed services or time spent by another provider/QHP. This included personally reviewing all current laboratories and imaging studies, medical reconciliation, outpatient chart review and discussion with specialists. 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 N/V/D x 3 days. Poor oral intake with this. Denies any bleeding concerns. Has been taking medications as prescribed. Some SOB as well. Denies any chest pain. No reported abdominal pain. No fevers. Most recent chemotherapy session last week. Follows with Dr. Everett of [facility] oncology. Allergies Allergy/AdvReac Type Severity Reaction Status Date / Time bee venom protein (honey bee) Allergy Severe ANAPHYLAXIS Verified 06/21/25 20:53 cephalexin [From Keflex] Allergy Unknown CAN'T Verified 06/21/25 20:53 MD CHIDI ADDED TO LIST Home Medications Medication Instructions Recorded Confirmed Type atorvastatin 80 mg tablet 80 mg PO DAILY 04/22/20 09/24/25 History cholecalciferol (vitamin D3) 25 1,000 unit PO QAM 04/22/20 09/24/25 History mcg (1,000 unit) capsule (Vitamin D3) epinephrine 0.3 mg/0.3 mL 0.3 mg IM DIRECTED PRN Allergic 04/22/20 09/24/25 History injection, auto-injector Reaction nitroglycerin 0.4 mg sublingual 0.4 mg sublingual DIRECTED PRN 04/22/20 09/24/25 History tablet (Nitrostat) Chest Pain tamsulosin 0.4 mg capsule 0.4 mg PO QAM 04/22/20 09/24/25 History lisinopril 2.5 mg tablet 2.5 mg PO QAM 02/03/23 09/24/25 History albuterol sulfate 90 mcg/actuation 2 inh inhalation Q4H PRN shortness 05/18/25 09/24/25 History aerosol inhaler of breath or wheezing budesonide 160 mcg-glycopyr 9 2 inh inhalation BID 05/18/25 09/24/25 History mcg-formot 4.8 mcg/actuation HFA inhaler (Breztri Aerosphere) folic acid 1 mg tablet 1 mg PO QAM 05/18/25 09/24/25 History prochlorperazine maleate 10 mg 10 mg PO Q6H PRN Nausea And 05/18/25 09/24/25 History tablet Vomiting trazodone 50 mg tablet 50 mg PO HS 05/18/25 09/24/25 History pantoprazole 40 mg tablet,delayed 40 mg PO BID #60 tabs 05/21/25 09/24/25 Rx release B-complex with vitamin C 1 cap PO QAM 06/21/25 09/24/25 History aspirin 81 mg tablet,delayed 81 mg PO QAM 06/21/25 09/24/25 History release dexamethasone 4 mg tablet 8 mg PO DIRECTED PRN DAYS 2,3,4 06/21/25 09/24/25 History OF CHEMO lidocaine-prilocaine 2.5 %-2.5 % 1 applic topical DIRECTED PRN 06/21/25 09/24/25 History topical cream ACCESSING MEDIPORT loperamide 1 mg/7.5 mL oral liquid 0.5 mg PO DAILY PRN Diarrhea 06/21/25 09/24/25 History (Imodium A-D) loratadine 10 mg tablet (Claritin) 10 mg PO DAILY PRN START DAY OF 06/21/25 09/24/25 History CHEMO X 5 DAYS. metoprolol succinate 50 mg 50 mg PO BID 06/21/25 09/24/25 History tablet,extended release 24 hr ondansetron HCl 8 mg tablet 8 mg PO Q8H PRN NAUSEA/VOMITING 06/21/25 09/24/25 History oxycodone 5 mg tablet 5 mg PO Q4H PRN pain #10 tabs 06/23/25 09/24/25 Rx L.acidop,casei,lactis,rham-B.lact,zac 1 cap PO QAM 08/15/25 09/24/25 History 625 mg (10 billion cell) capsule (Advanced Probiotic) Past Med/Surg History Problem List (Updated 09/24/25 @ 19:08 by Deonna Luna PA-C) Elevated troponin Acute kidney injury superimposed on stage 3a chronic kidney disease Diverticulitis Ileus Acute hypoxic respiratory failure Pulmonary edema Volume overload Pleural effusion Acute on chronic heart failure with preserved ejection fraction Congestive heart failure (Acute) Cellulitis of leg, right (Acute) Cellulitis and abscess of foot (Acute) Shortness of breath (Acute) Anemia (Acute) Drug-induced liver injury Symptomatic anemia SOB (shortness of breath) Pancytopenia due to chemotherapy Metastatic cancer Sofie-Mueller tear Acute on chronic blood loss anemia UGIB (upper gastrointestinal bleed) History of lung cancer (Acute) Thrombocytopenia (Acute) Anemia (Acute) Vomiting of blood (Acute) Acute bronchitis (Acute) Closed head injury (Acute) Concussion (Acute) Concussion (Acute) Occipital scalp laceration (Acute) Stented coronary artery Upper respiratory infection (Acute) Work related injury (Acute) Renal colic (Acute) Bilateral ureteral calculi (Acute) Hydronephrosis (Acute) Acute UTI (Acute) Leukocytosis (Acute) Melanoma Mohs x2 ANDRES (acute kidney injury) Encounter for pre-operative examination Left ureteral calculus Benign prostatic hyperplasia (BPH) with straining on urination Encounter for pre-operative examination Encounter for pre-operative examination Nephrolithiasis Pneumonia (Acute) Hypoxic (Acute) Hypomagnesemia (Acute) Acute hypoxemic respiratory failure HTN (hypertension) Paroxysmal atrial fibrillation 2010 had episode after back surgery and no problems since. Zio monitoring in Jun 2019 showed no evidence of recurrent atrial fibrillation follow with Dr. Carroll/ [facility] Bladder cancer dx'd 2007. BCG treatment + surgery CAD (coronary artery disease) Follows with [facility] S/p DULCE to ramus that had collaterals to the right on 06/2017 COPD (chronic obstructive pulmonary disease) Diabetes mellitus, type II NIDDM Medical History PAD (peripheral artery disease) Mild bilateral ICA disease (per 2019 carotid duplex) Arterial doppler of LE showed mild PAD on right side (April 2021) History of Mohs micrographic surgery for skin cancer History of gout History of melanoma Hyperlipidemia BPH (benign prostatic hyperplasia) Myocardial Infarction 1996 > anterior wall [place] Kidney stone 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 Surgical History History of urologic surgery History of cancer surgery bladder History of cystoscopy History of tooth extraction History of lithotripsy recent--08/21/21 @ [place] History of cardiac cath 2016 > 1 STENT > [facility] Hx of colonoscopy History of lumbar spinal fusion 2010 1968 Family History Father Diabetes Grandmother (Paternal) Diabetes Other Cancer Coronary heart disease Hypertension No family history of adverse response to anesthesia Social History Smoking Status: Current every day smoker Tobacco Type: Cigarettes Cigarettes Per Day: 3-4; Second Hand Exposure: Yes; Do You Dip or Chew Tobacco: No; Hx Alcohol Use: No Hx Substance Use: No Preferred Language: Mongolian Communication Ability: Effective Panel Cutter Required: No Beliefs That Will Affect Care: None marital status: Current Living Situation: Spouse Current Living Situation Comment: with Feels Safe at Home: Yes Assistive Devices: Walker Review of Systems Review of Systems: At least ten systems reviewed and negative, except as noted in the HPI. Physical Exam Physical Exam: General: Ill-appearing M, laying back in bed, A&Ox2-3 HEENT: Dry mucous membranes Respiratory: Tachypneic (RR 22), O2 sat 100% on 8L OxyMask, decreased breath sounds bilaterally Cardiovascular: RRR, no BLE edema Abdomen/GI: Somewhat hypoactive bowel sounds, mild distention but soft, n ontender to palpation in all quadrants. Extremities/Musculoskeletal: No cyanosis or clubbing, extremities motor strength intact, moves all extremities Neurologic: No overt focal deficits, CN's II-XI not formally tested but appear grossly intact bilaterally Results & Data Results & Data Vital Signs (Past 12 Hours) Vital Signs Temp Pulse Pulse Resp BP BP Pulse Ox 09/24/25 17:28 66 18 102/60 95 09/24/25 17:24 71 19 92/69 L 94 09/24/25 17:07 146 H 18 84/65 L 95 09/24/25 16:55 155 H 09/24/25 16:52 66 09/24/25 16:51 146 H 20 104/57 L 94 09/24/25 16:40 147 H 18 87/64 L 96 09/24/25 16:36 153 H 09/24/25 16:35 64 18 100/63 96 09/24/25 16:21 67 20 97/57 L 95 09/24/25 16:17 149 H 20 95/77 L 93 09/24/25 16:10 149 H 19 94/69 L 95 09/24/25 15:51 147 H 18 102/74 93 09/24/25 15:40 149 H 20 102/75 94 09/24/25 15:35 152 H 19 97/68 L 95 09/24/25 15:29 71 19 109/59 L 93 09/24/25 15:16 66 09/24/25 15:15 65 20 113/59 L 97 09/24/25 15:00 113 H 18 91/64 L 88 L 09/24/25 15:00 89 L 09/24/25 14:58 155 H 09/24/25 14:43 150 H 18 80/63 L 90 09/24/25 14:38 36.7 C 157 H 20 75/54 L 84 L O2 Del Method O2 Flow Rate 09/24/25 17:28 Oxymask 8 09/24/25 17:24 Oxymask 8 09/24/25 17:07 Oxymask 8 09/24/25 16:55 09/24/25 16:52 09/24/25 16:51 Oxymask 8 09/24/25 16:40 Oxymask 8 09/24/25 16:36 09/24/25 16:35 Oxymask 10 09/24/25 16:21 Oxymask 10 09/24/25 16:17 Oxymask 10 09/24/25 16:10 Oxymask 11 09/24/25 15:51 Oxymask 5 09/24/25 15:40 Oxymask 5 09/24/25 15:35 Oxymask 5 09/24/25 15:29 Oxymask 5 09/24/25 15:16 09/24/25 15:15 Oxymask 8 09/24/25 15:00 Nasal Cannula 6 09/24/25 15:00 Nasal Cannula 6 09/24/25 14:58 09/24/25 14:43 Nasal Cannula 6 09/24/25 14:38 Room Air Laboratory Results Short CBC 09/24/25 Range/Units 14:51 WBC 3.46 L (4.8-10.8) K/ul Hgb 9.4 L (14.0-18.0) g/dL Hct 29.1 L (42.0-52.0) % Plt Count 44 L (130-400) K/uL BMP 09/24/25 14:51 Sodium 141 Potassium 4.8 Chloride 107 Carbon Dioxide 26 BUN 47 H Creatinine 3.25 H Glucose 121 H Calcium 7.7 L Liver Function 09/24/25 Range/Units 14:51 Total Bilirubin 1.1 H (0.2-1.0) mg/dl Direct Bilirubin 0.5 H (0-0.2) mg/dl AST 53 H (13-39) U/L ALT 34 (7-52) U/L Alkaline Phosphatase 112 H (34-104) U/L Albumin 2.9 L (3.4-5.0) gm/dl Diagnostic Findings Chest X-Ray 09/24/25 14:44 XR chest 1V portable CLINICAL HISTORY: Sepsis. COMPARISON STUDY: Chest CT March 06, 2022. Chest radiograph August 18, 2025 FINDINGS: Right internal jugular [id number] remains in place. There is no pneumothorax. A small to moderate left pleural effusion is noted. Cardiomegaly is again noted. Interstitial thickening is progressed. There are patchy bibasilar opacities. IMPRESSION: 1. Cardiomegaly with progression of interstitial pulmonary edema. 2. Patchy bibasilar opacities which could represent pneumonia or atelectasis. Radiographic follow-up is recommended. 2. Small to moderate left pleural effusion. ACT 112: Negative or not required by law. Electronically signed by: Alli Espinoza M.D. 09/24/2025 3:01 PM Abdomen/Pelvis CT 09/24/25 15:29 EXAM: CT Abdomen and Pelvis Without Intravenous Contrast INDICATION: Vomiting and diarrhea TECHNIQUE: Axial computed tomography images of the abdomen and pelvis without intravenous contrast. Sagittal and coronal reformatted images were created and reviewed. This CT exam was performed using one or more of the following dose reduction techniques: automated exposure control, adjustment of the mA and/or kV according to patient size, and/or use of iterative reconstruction technique. COMPARISON: 02/03/2023 FINDINGS: Limitations: None. Lung bases: There is consolidation in the dependent lower lobes left greater than right. Pleural space: There are small layering bilateral pleural effusions. Heart: Cardiomegaly. Mediastinum: No abnormality noted. ABDOMEN: Liver: Lack of intravenous contrast limits detection of some masses. No abnormality noted. Gallbladder and bile ducts: No calcified stones or surrounding fluid. No ductal dilation. Pancreas: No pancreatic mass, calcification, inflammation or ductal dilation noted. Spleen: No acute abnormality noted. Adrenals: No acute abnormality noted. Kidneys and ureters: Stable bilateral renal cysts most of which clearly appear benign. Others are hyperdense and unchanged. Stomach and bowel: The stomach is collapsed and cannot be optimally assessed. Multiple small and large bowel loops are mildly dilated with fluid and air. Left colonic diverticula noted. Mild thickening of the lateral conal fascia identified which may reflect mild adjacent diverticulitis. No obstructing point. PELVIS: Appendix: Well seen and appears normal. Bladder: Appears normal for the degree of filling. No stones or inflammation. No large mass. Masses may not be detected in the absence of opacification. Reproductive: No abnormalities noted. ABDOMEN and PELVIS: Intraperitoneal space: No free air. No significant fluid collection. Bones/joints: No acute changes. Posterior L4-S1 fusion hardware well-seated and intact. Diffuse degenerative changes. Soft tissues: No acute abnormality noted. Vasculature: Stable atherosclerosis of the aorta with mild aneurysm of the infrarenal segment to 3.3 cm. No hemorrhage. Lymph nodes: No pathologically enlarged lymph nodes. IMPRESSION: 1. Ileus with findings suggestive of mild descending colonic acute diverticulitis. 2. Small layering pleural effusions and compressive bilateral lower lobe consolidation. 3. Stable 3.3 cm infrarenal abdominal aortic aneurysm without hemorrhage. ACR White Paper guidelines (Constance, et al. JACR 2013; 10(10):092-42) suggest abdomen/pelvis CT or MR imaging follow-up in 3 years. ACT 112: N/A Electronically signed by Michelle Fields 09-24-2025 5:21 PM Medications Administered Metronidazole (Flagyl) 500 mg in 100 mls @ 100 mls/hr IV NOW STA; Protocol Stop: 09/24/25 18:30 Last Admin: 09/24/25 17:42 Dose: 100 mls/hr Documented By: MARK Discontinued Medications Sodium Chloride (Nss) 1,000 mls @ 999 mls/hr IV .Q1H1M ONE Stop: 09/24/25 15:43 Last Infusion: 09/24/25 16:11 Dose: Infused Documented By: Admin: 09/24/25 14:46 Dose: 999 mls/hr Documented By: NA Levofloxacin/Dextrose (Levaquin/D5w) 750 mg in 150 mls @ 100 mls/hr IV NOW STA Stop: 09/24/25 16:35 Last Admin: 09/24/25 15:27 Dose: Not Given Documented By: NA Ceftriaxone Sodium (Rocephin) 2,000 mg in 50 mls @ 100 mls/hr IV NOW STA Stop: 09/24/25 15:58 Last Infusion: 09/24/25 16:10 Dose: Infused Documented By: Admin: 09/24/25 15:34 Dose: 100 mls/hr Documented By: NA Azithromycin (Zithromax) 500 mg in 255 mls @ 127.5 mls/hr IV NOW ONE Stop: 09/24/25 17:29 Last Admin: 09/24/25 16:10 Dose: 127.5 mls/hr Documented By: NA Sodium Chloride (Nss) 500 mls @ 999 mls/hr IV .Q31M ONE Stop: 09/24/25 17:51 Last Admin: 09/24/25 17:28 Dose: 999 mls/hr Documented By: NA Metoprolol Tartrate (Metoprolol Tartrate 1 Mg/Ml Vial) 5 mg IV NOW STA Stop: 09/24/25 15:37 Last Admin: 09/24/25 15:39 Dose: 5 mg Documented By: MARK Metoprolol Tartrate (Metoprolol Tartrate 1 Mg/Ml Vial) Confirm Administered Dose 5 mg IV .Camiant-MED ONE Stop: 09/24/25 15:38 Last Admin: 09/24/25 15:39 Dose: Not Given Documented By: MARK Supervising Physician Co-Signing Physician Notes Patient seen and examined at bedside. Patient has been having diarrhea for the past few days. Does not feel well overall. On exam, patient with diminished cap refill and strong radial pulses, appears pale. Benign abdomen. noted pancytopenia in setting of chemotherapy, patient is immunocompromise. Elevated creatinine suggestive of ANDRES in setting of sepsis. Elevated BNP and troponin likely reactionary to systemic process. Elevated Pro-Jd supports sepsis diagnosis. Complex case. Patient on chemotherapy for metastatic unknown primary malignancy presenting with ileus and acute diarrhea complicated by severe sepsis verging on shock. Continue aggressive fluid resuscitation given tenuous hemodynamics. Start zosyn for broad spectrum abx coverage. NPO until ileus resolves. Follow up echo and trend troponins for likely type 2 [place]. May need to be transferred to ICU pending blood pressures. I have seen and discussed the case with the collaborating advanced practitioner. I agree with the above H&P. I have reviewed and confirmed the patients medical history, the findings on physical examination, and the patients diagnosis and treatment plan with Cheryl DEMPSEY and agree with the information documented. I spent a total of 40 minutes coordinating, documenting, and providing care for this patient excluding time spent in the performance of separately billed services. All of the aforementioned completed outside of collaborating with the assigned advanced practitioner for a full treatment plan. I have reviewed the advanced practitioner's documentation, and I agree with, and take responsibility for the plan of care
[2025-09-24] MEDS ORDERED: DEXTROSE 50% 50 ML SYRINGE IV PRN (18:26)
[2025-09-24] MEDS ORDERED: GLUCOSE 40% GEL 15 GM TUBE PO PRN (18:26)
[2025-09-24] MEDS ORDERED: GLUCAGON FOR INJ 1 MG VIAL SQ PRN (18:26)
[2025-09-24] MEDS ORDERED: GLUCOSE 10 TAB/TUBE PO PRN (18:26)
[2025-09-24] MEDS ORDERED: CARBOHYDRATES FOR HYPOGLYCEMIA PO PRN (18:26)
[2025-09-24] MEDS ORDERED: PHARMACY GLYCEMIC MGMT CONSULT PRN (18:26)
--- NOTE | 2025-09-24 18:55 | Electrocardiogram Report ---
Test Reason : Blood Pressure : */* mmHG Vent. Rate : 156 BPM Atrial Rate : * BPM P-R Int : * ms QRS Dur : 102 ms QT Int : 300 ms P-R-T Axes : * 22 234 degrees QTcB Int : 483 ms Supraventricular tachycardia Low voltage QRS Cannot rule out Inferior infarct , age undetermined Abnormal ECG When compared with ECG of 15-Aug-2025 16:37, Vent. rate has increased by [address] now depressed in Anterior leads T wave inversion now evident in Lateral leads Confirmed by Alec Wells ([id number]) on 09/24/2025 6:54:47 PM Referred By: Confirmed By: Alec Wells
[2025-09-24] MEDS ORDERED: ALBUT/IPRATROP 3MG/0.5MG NEB 3 ML VIAL NEB PRN (19:25)
[2025-09-24] MEDS: PIPERACILLIN/TAZOBACTAM 4.5 GM/100 ML BAG IV STA (19:25)
[2025-09-24] MEDS: SODIUM CHLORIDE 0.9% 1,000 ML IV SCH (19:32)
[2025-09-24] MEDS: INSULIN ASPART PER UNIT CHARGE SC SCH (20:03)
--- NOTE | 2025-09-24 21:02 | Surgery Consultation ---
Date of Consultation September 24, 2025 Assessment & Plan (1) Ileus: (2) Acute hypoxic respiratory failure: (3) Pulmonary edema: Plan 80-year-old gentleman with extensive cardiac and pulmonary history, on chemotherapy, presents with vomiting and diarrhea. Noted to have an ileus on CT scan. He is continuing to pass flatus and has no abdominal pain. There is no surgical indication for ileus. There is no obstruction. Will sign off. Please call with questions or concerns. History of Present Illness Reason for Consultation: Ileus Requesting Physician: ED physician Attending Physician: ED physician History of Present Illness 80-year-old gentleman with multiple medical problems including extensive cardiac history and cancer history of being treated with chemotherapy presents with diarrhea for the past few days. He denies any abdominal pain. He was noted to have a ileus on CT scan. Allergies Allergy/AdvReac Type Severity Reaction Status Date / Time bee venom protein (honey bee) Allergy Severe ANAPHYLAXIS Verified 06/21/25 20:53 cephalexin [From Keflex] Allergy Unknown CAN'T Verified 06/21/25 20:53 MD CHIDI ADDED TO LIST Home Medications Medication Instructions Recorded Confirmed Type atorvastatin 80 mg tablet 80 mg PO DAILY 04/22/20 09/24/25 History cholecalciferol (vitamin D3) 25 1,000 unit PO QAM 04/22/20 09/24/25 History mcg (1,000 unit) capsule (Vitamin D3) epinephrine 0.3 mg/0.3 mL 0.3 mg IM DIRECTED PRN Allergic 04/22/20 09/24/25 History injection, auto-injector Reaction nitroglycerin 0.4 mg sublingual 0.4 mg sublingual DIRECTED PRN 04/22/20 09/24/25 History tablet (Nitrostat) Chest Pain tamsulosin 0.4 mg capsule 0.4 mg PO QAM 04/22/20 09/24/25 History lisinopril 2.5 mg tablet 2.5 mg PO QAM 02/03/23 09/24/25 History albuterol sulfate 90 mcg/actuation 2 inh inhalation Q4H PRN shortness 05/18/25 09/24/25 History aerosol inhaler of breath or wheezing budesonide 160 mcg-glycopyr 9 2 inh inhalation BID 05/18/25 09/24/25 History mcg-formot 4.8 mcg/actuation HFA inhaler (Breztri Aerosphere) folic acid 1 mg tablet 1 mg PO QAM 05/18/25 09/24/25 History prochlorperazine maleate 10 mg 10 mg PO Q6H PRN Nausea And 05/18/25 09/24/25 History tablet Vomiting trazodone 50 mg tablet 50 mg PO HS 05/18/25 09/24/25 History pantoprazole 40 mg tablet,delayed 40 mg PO BID #60 tabs 05/21/25 09/24/25 Rx release B-complex with vitamin C 1 cap PO QAM 06/21/25 09/24/25 History aspirin 81 mg tablet,delayed 81 mg PO QAM 06/21/25 09/24/25 History release dexamethasone 4 mg tablet 8 mg PO DIRECTED PRN DAYS 2,3,4 06/21/25 09/24/25 History OF CHEMO lidocaine-prilocaine 2.5 %-2.5 % 1 applic topical DIRECTED PRN 06/21/25 09/24/25 History topical cream ACCESSING MEDIPORT loperamide 1 mg/7.5 mL oral liquid 0.5 mg PO DAILY PRN Diarrhea 06/21/25 09/24/25 History (Imodium A-D) loratadine 10 mg tablet (Claritin) 10 mg PO DAILY PRN START DAY OF 06/21/25 09/24/25 History CHEMO X 5 DAYS. metoprolol succinate 50 mg 50 mg PO BID 06/21/25 09/24/25 History tablet,extended release 24 hr ondansetron HCl 8 mg tablet 8 mg PO Q8H PRN NAUSEA/VOMITING 06/21/25 09/24/25 History oxycodone 5 mg tablet 5 mg PO Q4H PRN pain #10 tabs 06/23/25 09/24/25 Rx L.acidop,casei,lactis,rham-B.lact,zac 1 cap PO QAM 08/15/25 09/24/25 History 625 mg (10 billion cell) capsule (Advanced Probiotic) Patient History Medical History PAD (peripheral artery disease) Mild bilateral ICA disease (per 2019 carotid duplex) Arterial doppler of LE showed mild PAD on right side (April 2021) History of Mohs micrographic surgery for skin cancer History of gout History of melanoma Hyperlipidemia BPH (benign prostatic hyperplasia) Myocardial Infarction 1996 > anterior wall MT Kidney stone 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 Surgical History History of urologic surgery History of cancer surgery bladder History of cystoscopy History of tooth extraction History of lithotripsy recent--08/21/21 @ [place] History of cardiac cath 2017 > 1 STENT > [facility] Hx of colonoscopy History of lumbar spinal fusion 2010 1968 Family History Father Diabetes Grandmother (Paternal) Diabetes Other Cancer Coronary heart disease Hypertension No family history of adverse response to anesthesia Social History Smoking Status: Current every day smoker Tobacco Type: Cigarettes Cigarettes Per Day: 3-4; Second Hand Exposure: Yes; Do You Dip or Chew Tobacco: No; Hx Alcohol Use: No Hx Substance Use: No Preferred Language: Macedonian Communication Ability: Effective [employer] Required: No Beliefs That Will Affect Care: None marital status: Current Living Situation: Spouse Current Living Situation Comment: with Feels Safe at Home: Yes Assistive Devices: Walker Review of Systems Review of Systems: All systems reviewed & are unremarkable except as noted in HPI & below Physical Exam Constitutional: WD/WN, vitals as above Eyes: PERRL, conjunctivae normal, anicteric sclerae Neck: trachea midline, no thyromegaly Respiratory: normal respiratory effort; no respiratory distress Cardiovascular: Rate/Rhythm: + tachycardic Gastrointestinal (Abdomen): Inspection/Auscultation: abdomen normal to inspection; abdomen not distended Percussion/Palpation: abdomen soft; abdomen nontender, no guarding and abdomen not rigid Skin: no rashes, warm and dry Results & Data Vital Signs (Past 12 Hours) Vital Signs Temp Pulse Pulse Resp BP BP Pulse Ox 09/24/25 20:26 153 H 19 107/58 L 92 09/24/25 19:12 66 09/24/25 18:06 66 18 111/58 L 99 09/24/25 17:57 67 18 108/59 L 100 09/24/25 17:43 66 20 106/61 98 09/24/25 17:28 66 18 102/60 95 09/24/25 17:24 71 19 92/69 L 94 09/24/25 17:07 146 H 18 84/65 L 95 09/24/25 16:55 155 H 09/24/25 16:52 66 09/24/25 16:51 146 H 20 104/57 L 94 09/24/25 16:40 147 H 18 87/64 L 96 09/24/25 16:36 153 H 09/24/25 16:35 64 18 100/63 96 09/24/25 16:21 67 20 97/57 L 95 09/24/25 16:17 149 H 20 95/77 L 93 09/24/25 16:10 149 H 19 94/69 L 95 09/24/25 15:51 147 H 18 102/74 93 09/24/25 15:40 149 H 20 102/75 94 09/24/25 15:35 152 H 19 97/68 L 95 09/24/25 15:29 71 19 109/59 L 93 09/24/25 15:16 66 09/24/25 15:15 65 20 113/59 L 97 09/24/25 15:00 113 H 18 91/64 L 88 L 09/24/25 15:00 89 L 09/24/25 14:58 155 H 09/24/25 14:43 150 H 18 80/63 L 90 09/24/25 14:38 36.7 C 157 H 20 75/54 L 84 L O2 Del Method O2 Flow Rate 09/24/25 20:26 Oxymask 8 09/24/25 19:12 09/24/25 18:06 Oxymask 8 09/24/25 17:57 Oxymask 8 09/24/25 17:43 Oxymask 8 09/24/25 17:28 Oxymask 8 09/24/25 17:24 Oxymask 8 09/24/25 17:07 Oxymask 8 09/24/25 16:55 09/24/25 16:52 09/24/25 16:51 Oxymask 8 09/24/25 16:40 Oxymask 8 09/24/25 16:36 09/24/25 16:35 Oxymask 10 09/24/25 16:21 Oxymask 10 09/24/25 16:17 Oxymask 10 09/24/25 16:10 Oxymask 11 09/24/25 15:51 Oxymask 5 09/24/25 15:40 Oxymask 5 09/24/25 15:35 Oxymask 5 09/24/25 15:29 Oxymask 5 09/24/25 15:16 09/24/25 15:15 Oxymask 8 09/24/25 15:00 Nasal Cannula 6 09/24/25 15:00 Nasal Cannula 6 09/24/25 14:58 09/24/25 14:43 Nasal Cannula 6 09/24/25 14:38 Room Air Laboratory Results 09/24/25 09/24/25 09/24/25 Range/Units 19:59 19:22 16:57 WBC (4.8-10.8) K/ul RBC (4.70-6.10) M/uL Hgb (14.0-18.0) g/dL POC Hgb (14.0-18.0) g/dl Hct (42.0-52.0) % POC Hct (42-52) % MCV (80.0-100.0) fL MCH (25.0-34.0) pg MCHC (32.0-36.0) g/dL RDW Std Deviation (36.4-46.3) fL RDW Coeff of Ele (11.5-14.5) % Plt Count (130-400) K/uL MPV (9.4-12.4) fL Immature Gran % (Auto) % Neut % (Auto) % Lymph % (Auto) % [place] % (Auto) % Eos % (Auto) % Baso % (Auto) % Neut # (Auto) (1.40-6.50) K/uL Lymph # (Auto) (1.20-3.40) K/uL [place] # (Auto) (0.11-0.59) K/uL Eos # (Auto) (0.00-0.50) K/uL Baso # (Auto) (0.00-0.20) K/uL Immature Gran # (Auto) (0.01-0.20) K/uL Toxic Granulation Toxic Vacuolation Dohle Bodies Macrocytosis Ovalocytes Acanthocytes (Spur) VBG pH (7.36-7.41) VBG pCO2 (38-50) mmHg VBG pO2 mmHg VBG HCO3 mmol/L VBG O2 Saturation % VBG Base Excess mEq/L POC Sodium (135-144) mmol/L Sodium (136-145) mmol/L POC Potassium (3.3-5.0) mmol/L Potassium (3.5-5.1) mmol/L POC Chloride (101-112) mmol/L Chloride (98-107) mmol/L Carbon Dioxide (21-32) mmol/L POC Total CO2 (24-31) mmol/L Anion Gap (3-11) POC Anion Gap (16-25) mmol/L POC BUN (7-18) mg/dl BUN (6-23) mg/dl Creatinine (0.6-1.4) mg/dl POC Creatinine (0.6-1.3) mg/dl Est Cr Clr Drug Dosing ml/min eGFR BUN/Creatinine Ratio (10-20) Glucose (70-99(Fasting)) mg/dl POC Glucose 110 H (70-99) mg/dl POC Glucose (other) (70-99) mg/dl Lactate (0.4-2.0) mmol/L Calcium (8.6-10.3) mg/dl POC Ioniz Calcium Anthony (1.12-1.32) mmol/l Magnesium (1.7-2.4) mg/dl Total Bilirubin (0.2-1.0) mg/dl Direct Bilirubin (0-0.2) mg/dl AST (13-39) U/L ALT (7-52) U/L Alkaline Phosphatase (34-104) U/L Troponin I High Sens 679.6 H* (0-20) pg/ml B-Natriuretic Peptide (0-100) pg/ml Total Protein (6.0-8.3) gm/dl Albumin (3.4-5.0) gm/dl 25-OH Vitamin D Total 60.9 (30-100) ng/ml Procalcitonin (0-0.5) ng/ml Adenovirus (PCR) (NotDetected) B. pertussis DNA (PCR) (NotDetected) B.parapertussis DNA PCR (NotDetected) C. pneumoniae DNA (PCR) (NotDetected) Coronavirus OC43 (PCR) (NotDetected) Coronavirus HKU1 (PCR) (NotDetected) Coronavirus 229E (PCR) (NotDetected) SARS-CoV-2 (PCR) (NotDetected) Coronavirus NL63 (PCR) (NotDetected) Human Metapneumovir PCR (NotDetected) Influenza Type A (PCR) (NotDetected) Influenza Type B (PCR) (NotDetected) M. pneumoniae (PCR) (NotDetected) Parainfluenza 1 (PCR) (NotDetected) Parainfluenza 2 (PCR) (NotDetected) Parainfluenza 3 (PCR) (NotDetected) Parainfluenza 4 (PCR) (NotDetected) RSV (PCR) (NotDetected) Entero/Rhino (PCR) (NotDetected) 09/24/25 09/24/25 09/24/25 Range/Units 15:02 14:54 14:51 WBC 3.46 L (4.8-10.8) K/ul RBC 2.56 L (4.70-6.10) M/uL Hgb 9.4 L (14.0-18.0) g/dL POC Hgb 9.2 L (14.0-18.0) g/dl Hct 29.1 L (42.0-52.0) % POC Hct 27 L (42-52) % MCV 113.7 H (80.0-100.0) fL MCH 36.7 H (25.0-34.0) pg MCHC 32.3 (32.0-36.0) g/dL RDW Std Deviation 64.9 H (36.4-46.3) fL RDW Coeff of Ele 15.5 H (11.5-14.5) % Plt Count 44 L (130-400) K/uL MPV 13.9 H (9.4-12.4) fL Immature Gran % (Auto) 0.3 % Neut % (Auto) 72.3 % Lymph % (Auto) 13.3 % [place] % (Auto) 12.1 % Eos % (Auto) 0.0 % Baso % (Auto) 2.0 % Neut # (Auto) 2.50 (1.40-6.50) K/uL Lymph # (Auto) 0.46 L (1.20-3.40) K/uL [place] # (Auto) 0.42 (0.11-0.59) K/uL Eos # (Auto) 0.00 (0.00-0.50) K/uL Baso # (Auto) 0.07 (0.00-0.20) K/uL Immature Gran # (Auto) 0.01 (0.01-0.20) K/uL Toxic Granulation 2+ Toxic Vacuolation 1+ Dohle Bodies 3+ Macrocytosis Present Ovalocytes 1+ Acanthocytes (Spur) 1+ VBG pH 7.34 L (7.36-7.41) VBG pCO2 49 (38-50) mmHg VBG pO2 24 mmHg VBG HCO3 26 mmol/L VBG O2 Saturation < 60.0 % VBG Base Excess 0.3 mEq/L POC Sodium 142 (135-144) mmol/L Sodium 141 (136-145) mmol/L POC Potassium 5.0 (3.3-5.0) mmol/L Potassium 4.8 (3.5-5.1) mmol/L POC Chloride 106 (101-112) mmol/L Chloride 107 (98-107) mmol/L Carbon Dioxide 26 (21-32) mmol/L POC Total CO2 24 (24-31) mmol/L Anion Gap 8 (3-11) POC Anion Gap 18.0 (16-25) mmol/L POC BUN 45 H (7-18) mg/dl BUN 47 H (6-23) mg/dl Creatinine 3.25 H (0.6-1.4) mg/dl POC Creatinine 3.3 H (0.6-1.3) mg/dl Est Cr Clr Drug Dosing 17.2 ml/min eGFR 18.61 BUN/Creatinine Ratio 14.5 (10-20) Glucose 121 H (70-99(Fasting)) mg/dl POC Glucose (70-99) mg/dl POC Glucose (other) 111 H (70-99) mg/dl Lactate 1.8 (0.4-2.0) mmol/L Calcium 7.7 L (8.6-10.3) mg/dl POC Ioniz Calcium Anthony 1.06 L (1.12-1.32) mmol/l Magnesium 2.1 (1.7-2.4) mg/dl Total Bilirubin 1.1 H (0.2-1.0) mg/dl Direct Bilirubin 0.5 H (0-0.2) mg/dl AST 53 H (13-39) U/L ALT 34 (7-52) U/L Alkaline Phosphatase 112 H (34-104) U/L Troponin I High Sens 611.8 H* (0-20) pg/ml B-Natriuretic Peptide 1006 H (0-100) pg/ml Total Protein 5.7 L (6.0-8.3) gm/dl Albumin 2.9 L (3.4-5.0) gm/dl 25-OH Vitamin D Total (30-100) ng/ml Procalcitonin 1.04 H (0-0.5) ng/ml Adenovirus (PCR) Not Detected (NotDetected) B. pertussis DNA (PCR) Not Detected (NotDetected) B.parapertussis DNA PCR Not Detected (NotDetected) C. pneumoniae DNA (PCR) Not Detected (NotDetected) Coronavirus OC43 (PCR) Not Detected (NotDetected) Coronavirus HKU1 (PCR) Not Detected (NotDetected) Coronavirus 229E (PCR) Not Detected (NotDetected) SARS-CoV-2 (PCR) Not Detected (NotDetected) Coronavirus NL63 (PCR) Not Detected (NotDetected) Human Metapneumovir PCR Not Detected (NotDetected) Influenza Type A (PCR) Not Detected (NotDetected) Influenza Type B (PCR) Not Detected (NotDetected) M. pneumoniae (PCR) Not Detected (NotDetected) Parainfluenza 1 (PCR) Not Detected (NotDetected) Parainfluenza 2 (PCR) Not Detected (NotDetected) Parainfluenza 3 (PCR) Not Detected (NotDetected) Parainfluenza 4 (PCR) Not Detected (NotDetected) RSV (PCR) Not Detected (NotDetected) Entero/Rhino (PCR) Not Detected (NotDetected) Diagnostic Findings EXAM: CT Abdomen and Pelvis Without Intravenous Contrast INDICATION: Vomiting and diarrhea TECHNIQUE: Axial computed tomography images of the abdomen and pelvis without intravenous contrast. Sagittal and coronal reformatted images were created and reviewed. This CT exam was performed using one or more of the following dose reduction techniques: automated exposure control, adjustment of the mA and/or kV according to patient size, and/or use of iterative reconstruction technique. COMPARISON: 02/03/2023 FINDINGS: Limitations: None. Lung bases: There is consolidation in the dependent lower lobes left greater than right. Pleural space: There are small layering bilateral pleural effusions. Heart: Cardiomegaly. Mediastinum: No abnormality noted. ABDOMEN: Liver: Lack of intravenous contrast limits detection of some masses. No abnormality noted. Gallbladder and bile ducts: No calcified stones or surrounding fluid. No ductal dilation. Pancreas: No pancreatic mass, calcification, inflammation or ductal dilation noted. Spleen: No acute abnormality noted. Adrenals: No acute abnormality noted. Kidneys and ureters: Stable bilateral renal cysts most of which clearly appear benign. Others are hyperdense and unchanged. Stomach and bowel: The stomach is collapsed and cannot be optimally assessed. Multiple small and large bowel loops are mildly dilated with fluid and air. Left colonic diverticula noted. Mild thickening of the lateral conal fascia identified which may reflect mild adjacent diverticulitis. No obstructing point. PELVIS: Appendix: Well seen and appears normal. Bladder: Appears normal for the degree of filling. No stones or inflammation. No large mass. Masses may not be detected in the absence of opacification. Reproductive: No abnormalities noted. ABDOMEN and PELVIS: Intraperitoneal space: No free air. No significant fluid collection. Bones/joints: No acute changes. Posterior L4-S1 fusion hardware well-seated and intact. Diffuse degenerative changes. Soft tissues: No acute abnormality noted. Vasculature: Stable atherosclerosis of the aorta with mild aneurysm of the infrarenal segment to 3.3 cm. No hemorrhage. Lymph nodes: No pathologically enlarged lymph nodes. IMPRESSION: 1. Ileus with findings suggestive of mild descending colonic acute diverticulitis. 2. Small layering pleural effusions and compressive bilateral lower lobe consolidation. 3. Stable 3.3 cm infrarenal abdominal aortic aneurysm without hemorrhage. ACR White Paper guidelines (Constance, et al. JACR 2013; 10(10):789-94) suggest abdomen/pelvis CT or MR imaging follow-up in 3 years.
[2025-09-24] MEDS ORDERED: ACETAMINOPHEN 325 MG TAB PO PRN (21:16)
[2025-09-24] MEDS ORDERED: ONDANSETRON INJ 2 MG/ML 2 ML VIAL IV PRN (21:16)
[2025-09-24] MEDS ORDERED: MAGNESIUM HYDROXIDE SUSP 30 ML UDC PO PRN (21:16)
[2025-09-24] MEDS ORDERED: POLYETHYLENE (MIRALAX) 17 GM PACK PO PRN (21:16)
[2025-09-24] MEDS: UMECLIDINIUM/VILANTEROL 62.5/25MCG 7 PUFFS/INHALER INH SCH (22:22)
[2025-09-24] MEDS: FLUTICASONE FUROATE 200MCG 14 PUFFS/INHALER INH SCH (22:23)
[2025-09-24] MEDS: METOPROLOL SUCC 50MG EXT REL TAB PO SCH (22:23)
[2025-09-24] MEDS: NON-FORMULARY MEDICATION (Budesonide-Glycopyr-Formoterol [Breztri Aerosphere] 160-9-4.8 mc INH SCH (22:32)
[2025-09-25] MEDS: METOPROLOL TARTRATE 1 MG/ML VIAL IV STA ×2 (00:42→03:09)
[2025-09-25] MEDS: METOPROLOL TARTRATE 1 MG/ML VIAL IV ONE ×2 (00:42→03:59)
[2025-09-25] MEDS ORDERED: AMIODARONE IV BOLUS & DRIP IV STA (03:41)
[2025-09-25] MEDS ORDERED: 0.2 MICRON FILTER SET 1 EACH IV STA (03:41)
[2025-09-25] MEDS ORDERED: STAT IV Infusion **Titration per Protocol STA ×2 (03:41→04:30)
[2025-09-25] MEDS: AMIODARONE / D5W 150 MG/100 ML BAG IV STA ×2 (03:52→05:46)
[2025-09-25] MEDS: AMIODARONE 150MG / 100ML D5W IV ONE (03:57)
[2025-09-25] MEDS: AMIODARONE 360MG / 200ML D5W IV ONE (03:57)
[2025-09-25] MEDS: AMIODARONE / D5W 360 MG/200 ML BAG IV ONE (04:03)
[2025-09-25 04:11] LABS: Appearance Urine Clear (Clear); Bacteria Urine Automated None Seen (None Seen); Cast Urine Automated >20 /lpf (0-2); Glucose Urine UA Negative (Negative); RBC Urine Automated 0-2 /hpf (0-2); WBC Urine Automated 0-5 /hpf (0-5)
--- NOTE | 2025-09-25 04:27 | Critical Care Consultation ---
Date of Consultation September 25, 2025 Assessment & Plan (1) Dysrhythmia: (2) Shock: (3) Hypoxia: (4) Elevated troponin: (5) Acute kidney injury superimposed on stage 3a chronic kidney disease: (6) Diverticulitis: (7) Ileus: (8) Acute hypoxic respiratory failure: Plan Reason Critically Ill: 80 YOM admitted for concerns of sepsis secondary to GI source complicated by dysrhythmia/tachycardia, now hypotensive requiring vasopressor support. Neuro - No acute needs CAM ICU: NEGATIVE - frequent re-orientation, attempt to maintain sleep wake cycles to avoid ICU delirium Cardiac - Shock unspecified, atrial dysrhythmia, elevated troponin, HFPEF - Shock unspecified- likely multifactorial at this time to HF (acute on chronic or chemo-induced), atrial dysrhythmia, and SIRS/Sepsis or combination of any of these - he has been volume challenged earlier- however he is with pulmonary congestion, IVC is full, and with pleural effusions and appears some hepatic congestion on review of images - Bedside POCUS appears that overall contraction may be less than previous reported 55%- mild MR - Offical ECHO this morning - organ dysfunction of renals, heart, lungs - Support hemodynamics with REEMA at this time - Atrial dysrhythmia- afib vs. PAT/SVT- history of PAF per records - BP effected with higher HR- amiodarone bolus initiated followed by drip - had short course of conversion to NSR in 60s but remains in 140s - bolus another 150mg IV - Did receive Metoprolol Succinate 50mg orally 2229 - Platelet count 44 - hold on anticoagulation - Patient reports that he is usually generally asymptomatic with this and can't tell when his HR is irregular or fast- unknown time in rhythm but has been NSR this admission - Elevated troponin- likely demand in setting of tachycardia and hypoxia- ECG without STEMI Respiratory - Hypoxic respiratory failure, pleural effusion bilateral - Hypoxic respiratory failure- possibly related to decompensated HF in setting of acute illness - however can't exclude infective source - Pleural effusions small to moderate - had left sided thoracentesis in AUG 27- with path negative for malignancy- but + for mesothelial cells and histiocytes- favoring reactive process per report - viral panel negative GI - Ileus, diverticulitis NPO- no emesis noted appreciate surgical evaluation and following- imaging although completed without contrast did not appreciate abscess Continue Zosyn RENAL/LYTES - ANDRES on CKD, - Continue supportive care with maintaining euvolemia and supporting MAPS > 65 - LR at maintenance 90ml/hr as NPO - BPH with LUTS - bladder scan - required straight cath x1 already- if needs persist consider placing Connelly while on vasopressor support ENDO - No acute needs HEME - Cancer unknown primary suspected mets, thrombocytopenia - previously received 6 cycles of carboplatin (pemetrexed) and Keytruda and then transitioned to Docetaxel, Ramucirumab Sep 17 - Pleural effusion patho as above- NEGATIVE for malignancy - POSITIVE for mesothelial and histocytes - thrombocytopenia- likely secondary to chemotherapy - hold on chemoprophy at this time- evaluate on rounds ID - septic shock - technically meets criteria for SIRS plus suspected source, plus organ dysfunction now requiring vasopressors - Source presumed GI however can't exclude pulmonary - Zosyn, re-start Azithromycin - MRSA nares pending - C. DIFF pending and stool cx pending- not sent as no sample produced yet - UA negative - Blood Cultures NGTD LINES/IV ACCESS - PIV x2, Port RTSCL Continue use of these lines DVT PROPHYLAXIS - SCDS, chemoprophylaxis on hold secondary to thrombocytopenia DISPO: ICU until rhythm and hemodynamics stabilized and not requiring vasoactive support I have personally spent 55 minutes of critical care time in the direct management of this patient. This is a life/limb threatening event. This includes time spent evaluating patient, direct bedside care, chart review, placing orders, interpretation of diagnostic studies, discussion with consultants, patient, and family members, as well as other required patient management activities. This time is exclusive of all separately billable procedures, and teaching time and separate from and in addition to any other critical care service time. Thank you for allowing us to participate in the care of this patient. Please refer to my attending physician's documentation for any further recommendations. Supervising Physician Co-Signing Physician Notes I have seen and evaluated the patient with the INDUSTRIAL PSYCHOLOGIST. I agree with the documented findings and plan in addition to the following. 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 The patient follows with Dr. Everett at [facility] oncology. He received 6 cycles of pemetrexed plus carboplatin and Keytruda. Continued on maintenance with pemetrexed and Keytruda. Then transition to docetaxel and ramicurimab. Last therapy was on 09/17/2025. The patient presented to the hospital 09/24/2025 with a complaint of nausea, vomiting and diarrhea for 3 days duration. He was unable to tolerate p.o. Also worsening shortness of breath, does not normally wear oxygen at home. In the emergency department the patient was found to be hypoxic. Imaging of the chest was concerning for pulmonary edema with pleural effusions. BioFire was negative. Required 8 L on admission. Imaging of the abdomen showed ileus and mild descending colonic diverticulitis. The patient was in A-fib with RVR on presentation. Troponins were elevated as well as BNP. He was in ANDRES as well. General surgery and cardiology were both consulted on admission. The patient received fluid resuscitation with 2-1/2 L of fluid. Trial of Lopressor was done however the patient had worsening hypotension and continued to go in and out of A-fib. The patient was transferred to the ICU for pressor support. He was initiated on amiodarone and phenylephrine. He was continued on oxygen supplementation. No further fluid resuscitation was given. When I examined the patient this morning he is resting comfortably in bed. He was in A-fib RVR versus flutter this morning. Intermittently the rhythm would be more regular and appeared as SVT. The patient subsequently converted to sinus rhythm. Rate is controlled when he is in sinus in the 60s. Still requiring phenylephrine. Amiodarone drip is running. He denies any chest heaviness. Does endorse some shortness of breath. Does not wear oxygen at home. Appears euvolemic on exam. No significant lower extremity edema. Coarse breath sounds appreciated. Reason Critically Ill: A-fib RVR and SVT Shock state, septic versus cardiogenic in setting of uncontrolled arrhythmias Elevated troponin Acute hypoxic respiratory failure Pulmonary edema and pleural effusions ANDRES on CKD Ileus Diverticulitis Metastatic carcinoma with recent chemotherapy and immunotherapy Thrombocytopenia Neuro: Awake and alert. No neurologic deficits at this time. Cardiac: Shock state A-fib RVR and SVT Elevated troponin Not currently on anticoagulation, has thrombocytopenia patient deferred anticoagulation previously. On amiodarone infusion, received bolus. Troponins are downtrending. Official echo is pending. Will initiate low-dose metoprolol 12.5 twice daily. Continue phenylephrine for blood pressure support. Received 2.5 L fluid bolus. Will hold off on further fluid resuscitation. Will likely require fluid resuscitation in order to wean oxygen. Will hold off for now because he is in shock. Will get cortisol level and recheck lactic. Cardiology was consulted, appreciate assistance with case. Respiratory: Acute hypoxic respite failure Underlying COPD Pulmonary edema with bilateral pleural effusions (left Thora 08/16/2025, appears transudative with low protein and LDH. Negative cultures) CT imaging was reviewed by myself small to moderate bilateral pleural effusions appreciated. Interlobular septal thickening suggesting pulmonary edema. There is also what appears to be an infiltrate, most appreciated on the left. Patient has been started on Zosyn and azithromycin. I agree with this. Continue DuoNebs. Rester BioFire was negative. Will repeat Pro-Jd. MRSA nares negative. Continue oxygen supplementation, wean as tolerated. Will likely need Lasix once out of shock for pulmonary edema and pleural effusions. GI: Ileus Diverticulitis Patient has been started on Zosyn. I agree with this. Protonix 40 twice daily. RENAL/LYTES: ANDRES on CKD Electrolyte disturbance Received 2.5 L crystalloid resuscitation. ANDRES is improving. Monitor urine output. Monitor and replace electrolytes, giving 2 more grams of calcium this morning. : BPH Urinary retention required straight cath overnight. Intermittently check with bladder scan, may require Connelly. ENDO: Blood glucose acceptable. A1c slightly elevated at 5.9. Will check TSH and cortisol. HEME: Metastatic carcinoma on chemo and immunotherapy Thrombocytopenia Place SCDs, holding heparin. Presentation could be cardiotoxicity given recent chemotherapy. Could also be immuno therapy related. ID: Shock state, septic versus cardiac related. Patient is on Zosyn and azithromycin, I agree with this. Blood cultures have been sent. Has an infiltrate on CT. Urine does not look infected. MRSA nares negative. Will check Pro-Jd again, was slightly elevated on admission. BioFire was negative. Feeding: Sips and chips Fluids: None Analgesia: Oxy Activity: Bedrest Thromboprophylaxis: SCD Ulcer prophylaxis: Pantoprazole Glycemic control: Not indicated Bowels: Mag citrate as needed Indwelling catheters: PIV Antibiotics: Zosyn and azithromycin Plan: Patient remain in the ICU. Currently requiring phenylephrine. On amiodarone infusion. Will try some metoprolol. Cardiology is consulted. Appreciate assistance with case. Will continue antibiotics. Formal echo is pending. I have personally spent 55 minutes of critical care time in the direct management of this patient. This is a life/limb threatening event. This includes time spent evaluating patient, direct bedside care, chart review, placing orders, interpretation of diagnostic studies, discussion with consultants, patient, and family members, as well as other required patient management activities. This time is exclusive of all separately billable procedures, and teaching time and separate from and in addition to any other critical care service time. History of Present Illness Reason for Consultation: shock - unspcecified, complicated by Afib with RVR Requesting Physician: Costa youngblood MD Attending Physician: Jude Meyer MD History of Present Illness 80 YOM with medical history of: HFpEF, CAD (stent 2016), PAF- (pt has refused anticoagulation past and also had BB stopped a few weeks ago), HTN, HLD, DMII, COPD, cancer with unknown primary with metastatic disease to bladder, lung, BPH with LUTS, PVD, infrarenal AAA (3.3 cm- appears stable since 2021) . Patient initially admitted in the early evening of 09/24/25- for complaints of diarrhea x3 days- he was found to have ileus and diverticulitis as well as afib with RVR into the 150s. He was given 2L crystalloid as well as IV metoprolol and appeared to have converted to NSR with return of BP to normal ranges with rate control. Early in the morning on 09/25/25- patient returned to afib with RVR into the 140s and 150s- previously in the night he had a few episodes that responded to IV metoprolol, however this time he remained tachycardic, asymptomatic except for BP <90s systolically. He was given 250ml crystalloid with no effect on either HR or BP, he was then loaded on amiodarone 150mg IV and then drip at 1mg per hour. He will be transferred to the ICU for hemodynamic support while attempting to achieve rate control. He has been seen by surgical services for his ileus and diverticulitis- with recommendations for NPO and antibiotics- no report of abscess on imaging. Patient reports last dose of chemotherapy- ~ 2 weeks ago, he also reports that he normally gets filgrastim following his treatments. He is noted with platelet count of 44, wbc 3.4, HGB 9.4. CODE: FULL Allergies Allergy/AdvReac Type Severity Reaction Status Date / Time bee venom protein (honey bee) Allergy Severe ANAPHYLAXIS Verified 06/21/25 20:53 cephalexin [From Keflex] Allergy Unknown CAN'T Verified 06/21/25 20:53 MD CHIDI ADDED TO LIST Home Medications Medication Instructions Recorded Confirmed Type atorvastatin 80 mg tablet 80 mg PO DAILY 04/22/20 09/24/25 History cholecalciferol (vitamin D3) 25 1,000 unit PO QAM 04/22/20 09/24/25 History mcg (1,000 unit) capsule (Vitamin D3) epinephrine 0.3 mg/0.3 mL 0.3 mg IM DIRECTED PRN Allergic 04/22/20 09/24/25 History injection, auto-injector Reaction nitroglycerin 0.4 mg sublingual 0.4 mg sublingual DIRECTED PRN 04/22/20 09/24/25 History tablet (Nitrostat) Chest Pain tamsulosin 0.4 mg capsule 0.4 mg PO QAM 04/22/20 09/24/25 History lisinopril 2.5 mg tablet 2.5 mg PO QAM 02/03/23 09/24/25 History albuterol sulfate 90 mcg/actuation 2 inh inhalation Q4H PRN shortness 05/18/25 09/24/25 History aerosol inhaler of breath or wheezing budesonide 160 mcg-glycopyr 9 2 inh inhalation BID 05/18/25 09/24/25 History mcg-formot 4.8 mcg/actuation HFA inhaler (Breztri Aerosphere) folic acid 1 mg tablet 1 mg PO QAM 05/18/25 09/24/25 History prochlorperazine maleate 10 mg 10 mg PO Q6H PRN Nausea And 05/18/25 09/24/25 History tablet Vomiting trazodone 50 mg tablet 50 mg PO HS 05/18/25 09/24/25 History pantoprazole 40 mg tablet,delayed 40 mg PO BID #60 tabs 05/21/25 09/24/25 Rx release B-complex with vitamin C 1 cap PO QAM 06/21/25 09/24/25 History aspirin 81 mg tablet,delayed 81 mg PO QAM 06/21/25 09/24/25 History release dexamethasone 4 mg tablet 8 mg PO DIRECTED PRN DAYS 2,3,4 06/21/25 09/24/25 History OF CHEMO lidocaine-prilocaine 2.5 %-2.5 % 1 applic topical DIRECTED PRN 06/21/25 09/24/25 History topical cream ACCESSING MEDIPORT loperamide 1 mg/7.5 mL oral liquid 0.5 mg PO DAILY PRN Diarrhea 06/21/25 09/24/25 History (Imodium A-D) loratadine 10 mg tablet (Claritin) 10 mg PO DAILY PRN START DAY OF 06/21/25 09/24/25 History CHEMO X 5 DAYS. metoprolol succinate 50 mg 50 mg PO BID 06/21/25 09/24/25 History tablet,extended release 24 hr ondansetron HCl 8 mg tablet 8 mg PO Q8H PRN NAUSEA/VOMITING 06/21/25 09/24/25 History oxycodone 5 mg tablet 5 mg PO Q4H PRN pain #10 tabs 06/23/25 09/24/25 Rx L.acidop,casei,lactis,rham-B.lact,zac 1 cap PO QAM 08/15/25 09/24/25 History 625 mg (10 billion cell) capsule (Advanced Probiotic) Patient History Medical History PAD (peripheral artery disease) Mild bilateral ICA disease (per 2019 carotid duplex) Arterial doppler of LE showed mild PAD on right side (April 2021) History of Mohs micrographic surgery for skin cancer History of gout History of melanoma Hyperlipidemia BPH (benign prostatic hyperplasia) Myocardial Infarction 1996 > anterior wall MA Kidney stone 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 Surgical History History of urologic surgery History of cancer surgery bladder History of cystoscopy History of tooth extraction History of lithotripsy recent--08/21/21 @ [place] History of cardiac cath 2017 > 1 STENT > [facility] Hx of colonoscopy History of lumbar spinal fusion 2010 1968 Family History Father Diabetes Grandmother (Paternal) Diabetes Other Cancer Coronary heart disease Hypertension No family history of adverse response to anesthesia Social History Smoking Status: Current every day smoker Tobacco Type: Cigarettes Cigarettes Per Day: 3; Second Hand Exposure: Yes; Do You Dip or Chew Tobacco: No; Hx Alcohol Use: No Hx Substance Use: No Preferred Language: Kittitian Communication Ability: Effective Dental Service Chief Required: No Beliefs That Will Affect Care: None marital status: Current Living Situation: Spouse Current Living Situation Comment: with Other Information That Helps Us Care for You: No Feels Safe at Home: Yes Safety Concerns: Feels Safe At This Time Assistive Devices: Denture - Upper, Denture - Lower, Glasses and Walker Assistive Devices Comment: dentures at home Review of Systems Review of Systems: REVIEW OF SYSTEMS: Constitutional: subjective fever, No sweats or chills Eyes: No diplopia, no worsening or blurred vision ENT: normal hearing, no trouble swallowing Respiratory: No cough, sputum, dyspnea at rest or on exertion Cardiovascular: No chest pain, tightness or palpitations Abdomen: (+) pain, nausea, vomiting, diarrhea Musculoskeletal: No joint pain, calf pain, swelling Neurologic: No weakness, numbness/tingling, or balance problems Psychiatric: No anxiety or depression Skin: multiple skin tears Physical Exam Physical Exam: PHYSICAL EXAM: General: awake, alert, no apparent distress Head: Normocephalic, atraumatic ENT: PERRLA, EOMI, no pharyngeal exudate, mucous membranes dry Neuro: AAO x 3, speech clear and appropriate, strength intact bilaterally 5/5, sensation intact and equal all extremities and dermatomes, no pronator drift Chest: equal rise and fall of the chest, no accessory muscle use, no heaves or thrills, scattered crackles, decreased in the bases Cardiac: irregular rate and rhythm, telemetry reviewed- afib vs. PAT/SVT, skin warm dry, cap refill <3 seconds, peripheral pulses +2 no JVD, grade II systolic murmur LSB GI: NABS x 4 quadrants, soft, tender to palpation RLQ, no rebound, guarding : required straight cath x1- follow may need connelly Psych: Normal mood and affect Skin: no rash or erythema Results & Data Results & Data Vital Signs (Past 12 Hours) Vital Signs Temp Pulse Pulse Resp BP BP Pulse Ox 09/25/25 02:42 36.9 C 74 18 93/52 L 94 09/25/25 01:18 73 09/25/25 00:42 161 H 09/25/25 00:37 69 97/58 L 09/25/25 00:37 156 H 82/52 L 09/25/25 00:33 163 H 80/50 L 09/25/25 00:32 76/56 L 09/25/25 00:27 166 H 100/66 09/25/25 00:23 163 H 80/56 L 09/24/25 23:31 37.1 C 80 18 107/57 L 93 09/24/25 22:20 87 118/67 09/24/25 21:53 73 09/24/25 21:41 09/24/25 21:17 09/24/25 21:00 36.9 C 74 18 110/53 L 96 09/24/25 20:26 153 H 19 107/58 L 92 09/24/25 19:12 66 09/24/25 18:06 66 18 111/58 L 99 09/24/25 17:57 67 18 108/59 L 100 09/24/25 17:43 66 20 106/61 98 09/24/25 17:28 66 18 102/60 95 09/24/25 17:24 71 19 92/69 L 94 09/24/25 17:07 146 H 18 84/65 L 95 09/24/25 16:55 155 H 09/24/25 16:52 66 09/24/25 16:51 146 H 20 104/57 L 94 09/24/25 16:40 147 H 18 87/64 L 96 09/24/25 16:36 153 H 09/24/25 16:35 64 18 100/63 96 O2 Del Method O2 Del Method O2 Flow Rate O2 Flow Rate 09/25/25 02:42 High Flow Nasal Cannula 13 09/25/25 01:18 09/25/25 00:42 09/25/25 00:37 09/25/25 00:37 09/25/25 00:33 09/25/25 00:32 09/25/25 00:27 09/25/25 00:23 09/24/25 23:31 High Flow Nasal Cannula 10 09/24/25 22:20 09/24/25 21:53 09/24/25 21:41 Oxymask 9 09/24/25 21:17 Oxymask 9 09/24/25 21:00 Oxymask 9 09/24/25 20:26 Oxymask 8 09/24/25 19:12 09/24/25 18:06 Oxymask 8 09/24/25 17:57 Oxymask 8 09/24/25 17:43 Oxymask 8 09/24/25 17:28 Oxymask 8 09/24/25 17:24 Oxymask 8 09/24/25 17:07 Oxymask 8 09/24/25 16:55 09/24/25 16:52 09/24/25 16:51 Oxymask 8 09/24/25 16:40 Oxymask 8 09/24/25 16:36 09/24/25 16:35 Oxymask 10 Laboratory Results Abnormal lab results 09/24/25 09/24/25 09/24/25 Range/Units 14:51 14:54 15:02 WBC 3.46 L (4.8-10.8) K/ul RBC 2.56 L (4.70-6.10) M/uL Hgb 9.4 L (14.0-18.0) g/dL POC Hgb 9.2 L (14.0-18.0) g/dl Hct 29.1 L (42.0-52.0) % POC Hct 27 L (42-52) % MCV 113.7 H (80.0-100.0) fL MCH 36.7 H (25.0-34.0) pg RDW Std Deviation 64.9 H (36.4-46.3) fL RDW Coeff of Ele 15.5 H (11.5-14.5) % Plt Count 44 L (130-400) K/uL MPV 13.9 H (9.4-12.4) fL Lymph # (Auto) 0.46 L (1.20-3.40) K/uL VBG pH 7.34 L (7.36-7.41) POC BUN 45 H (7-18) mg/dl BUN 47 H (6-23) mg/dl Creatinine 3.25 H (0.6-1.4) mg/dl POC Creatinine 3.3 H (0.6-1.3) mg/dl Glucose 121 H (70-99(Fasting)) mg/dl POC Glucose (70-99) mg/dl POC Glucose (other) 111 H (70-99) mg/dl Calcium 7.7 L (8.6-10.3) mg/dl POC Ioniz Calcium Anthony 1.06 L (1.12-1.32) mmol/l Total Bilirubin 1.1 H (0.2-1.0) mg/dl Direct Bilirubin 0.5 H (0-0.2) mg/dl AST 53 H (13-39) U/L Alkaline Phosphatase 112 H (34-104) U/L Troponin I High Sens 611.8 H* (0-20) pg/ml B-Natriuretic Peptide 1006 H (0-100) pg/ml Total Protein 5.7 L (6.0-8.3) gm/dl Albumin 2.9 L (3.4-5.0) gm/dl Procalcitonin 1.04 H (0-0.5) ng/ml Urine Protein (Negative) U Hyaline Cast (Auto) (0-2) /lpf U Epithel Cells (Auto) (0-2) /hpf Hyaline Casts (None Presnt) /lpf Granular Casts (None Prsent) /lpf 09/24/25 09/24/25 09/24/25 Range/Units 16:57 19:59 23:22 WBC (4.8-10.8) K/ul RBC (4.70-6.10) M/uL Hgb (14.0-18.0) g/dL POC Hgb (14.0-18.0) g/dl Hct (42.0-52.0) % POC Hct (42-52) % MCV (80.0-100.0) fL MCH (25.0-34.0) pg RDW Std Deviation (36.4-46.3) fL RDW Coeff of Ele (11.5-14.5) % Plt Count (130-400) K/uL MPV (9.4-12.4) fL Lymph # (Auto) (1.20-3.40) K/uL VBG pH (7.36-7.41) POC BUN (7-18) mg/dl BUN (6-23) mg/dl Creatinine (0.6-1.4) mg/dl POC Creatinine (0.6-1.3) mg/dl Glucose (70-99(Fasting)) mg/dl POC Glucose 110 H (70-99) mg/dl POC Glucose (other) (70-99) mg/dl Calcium (8.6-10.3) mg/dl POC Ioniz Calcium Anthony (1.12-1.32) mmol/l Total Bilirubin (0.2-1.0) mg/dl Direct Bilirubin (0-0.2) mg/dl AST (13-39) U/L Alkaline Phosphatase (34-104) U/L Troponin I High Sens 679.6 H* 635.7 H* (0-20) pg/ml B-Natriuretic Peptide (0-100) pg/ml Total Protein (6.0-8.3) gm/dl Albumin (3.4-5.0) gm/dl Procalcitonin (0-0.5) ng/ml Urine Protein (Negative) U Hyaline Cast (Auto) (0-2) /lpf U Epithel Cells (Auto) (0-2) /hpf Hyaline Casts (None Presnt) /lpf Granular Casts (None Prsent) /lpf 09/25/25 09/25/25 Range/Units 00:08 03:56 WBC (4.8-10.8) K/ul RBC (4.70-6.10) M/uL Hgb (14.0-18.0) g/dL POC Hgb (14.0-18.0) g/dl Hct (42.0-52.0) % POC Hct (42-52) % MCV (80.0-100.0) fL MCH (25.0-34.0) pg RDW Std Deviation (36.4-46.3) fL RDW Coeff of Ele (11.5-14.5) % Plt Count (130-400) K/uL MPV (9.4-12.4) fL Lymph # (Auto) (1.20-3.40) K/uL VBG pH (7.36-7.41) POC BUN (7-18) mg/dl BUN (6-23) mg/dl Creatinine (0.6-1.4) mg/dl POC Creatinine (0.6-1.3) mg/dl Glucose (70-99(Fasting)) mg/dl POC Glucose 114 H (70-99) mg/dl POC Glucose (other) (70-99) mg/dl Calcium (8.6-10.3) mg/dl POC Ioniz Calcium Anthony (1.12-1.32) mmol/l Total Bilirubin (0.2-1.0) mg/dl Direct Bilirubin (0-0.2) mg/dl AST (13-39) U/L Alkaline Phosphatase (34-104) U/L Troponin I High Sens (0-20) pg/ml B-Natriuretic Peptide (0-100) pg/ml Total Protein (6.0-8.3) gm/dl Albumin (3.4-5.0) gm/dl Procalcitonin (0-0.5) ng/ml Urine Protein 1+ H (Negative) U Hyaline Cast (Auto) >20 H (0-2) /lpf U Epithel Cells (Auto) 6-10 H (0-2) /hpf Hyaline Casts Present A (None Presnt) /lpf Granular Casts Present A (None Prsent) /lpf Diagnostic Findings Chest X-Ray 09/24/25 14:44 XR chest 1V portable CLINICAL HISTORY: Sepsis. COMPARISON STUDY: Chest CT March 06, 2022. Chest radiograph August 18, 2025 FINDINGS: Right internal jugular [id number] remains in place. There is no pneumothorax. A small to moderate left pleural effusion is noted. Cardiomegaly is again noted. Interstitial thickening is progressed. There are patchy bibasilar opacities. IMPRESSION: 1. Cardiomegaly with progression of interstitial pulmonary edema. 2. Patchy bibasilar opacities which could represent pneumonia or atelectasis. Radiographic follow-up is recommended. 2. Small to moderate left pleural effusion. ACT 112: Negative or not required by law. Electronically signed by: Alli Espinoza M.D. 09/24/2025 3:01 PM Abdomen/Pelvis CT 09/24/25 15:29 EXAM: CT Abdomen and Pelvis Without Intravenous Contrast INDICATION: Vomiting and diarrhea TECHNIQUE: Axial computed tomography images of the abdomen and pelvis without intravenous contrast. Sagittal and coronal reformatted images were created and reviewed. This CT exam was performed using one or more of the following dose reduction techniques: automated exposure control, adjustment of the mA and/or kV according to patient size, and/or use of iterative reconstruction technique. COMPARISON: 02/03/2023 FINDINGS: Limitations: None. Lung bases: There is consolidation in the dependent lower lobes left greater than right. Pleural space: There are small layering bilateral pleural effusions. Heart: Cardiomegaly. Mediastinum: No abnormality noted. ABDOMEN: Liver: Lack of intravenous contrast limits detection of some masses. No abnormality noted. Gallbladder and bile ducts: No calcified stones or surrounding fluid. No ductal dilation. Pancreas: No pancreatic mass, calcification, inflammation or ductal dilation noted. Spleen: No acute abnormality noted. Adrenals: No acute abnormality noted. Kidneys and ureters: Stable bilateral renal cysts most of which clearly appear benign. Others are hyperdense and unchanged. Stomach and bowel: The stomach is collapsed and cannot be optimally assessed. Multiple small and large bowel loops are mildly dilated with fluid and air. Left colonic diverticula noted. Mild thickening of the lateral conal fascia identified which may reflect mild adjacent diverticulitis. No obstructing point. PELVIS: Appendix: Well seen and appears normal. Bladder: Appears normal for the degree of filling. No stones or inflammation. No large mass. Masses may not be detected in the absence of opacification. Reproductive: No abnormalities noted. ABDOMEN and PELVIS: Intraperitoneal space: No free air. No significant fluid collection. Bones/joints: No acute changes. Posterior L4-S1 fusion hardware well-seated and intact. Diffuse degenerative changes. Soft tissues: No acute abnormality noted. Vasculature: Stable atherosclerosis of the aorta with mild aneurysm of the infrarenal segment to 3.3 cm. No hemorrhage. Lymph nodes: No pathologically enlarged lymph nodes. IMPRESSION: 1. Ileus with findings suggestive of mild descending colonic acute diverticulitis. 2. Small layering pleural effusions and compressive bilateral lower lobe consolidation. 3. Stable 3.3 cm infrarenal abdominal aortic aneurysm without hemorrhage. ACR White Paper guidelines (Constance, et al. JACR 2013; 10(10):789-94) suggest abdomen/pelvis CT or MR imaging follow-up in 3 years. ACT 112: N/A Electronically signed by Michelle Fields 09-24-2025 5:21 PM Medications Administered Fluticasone Furoate (Fluticasone Furoate 200mcg 14 Puffs/Inhaler) 1 puffs INH DAILY [facility] Stop: 10/24/25 21:44 Last Admin: 09/24/25 22:23 Dose: 1 puffs Documented By: TMG Sodium Chloride (Nss) 1,000 mls @ 80 mls/hr IV .[id number] [facility] Stop: 09/27/25 19:14 Last Admin: 09/24/25 19:32 Dose: 80 mls/hr Documented By: asm Amiodarone HCl/Dextrose (Nexterone / D5w) 360 mg in 200 mls @ 33.333 mls/hr IV ONE ONE Stop: 09/25/25 09:50 Last Admin: 09/25/25 04:03 Dose: 1 mg/min, 33.3 mls/hr Documented By: BERTRAM Co-signed By: KENNETHP Phenylephrine HCl (Phenylephrine/Nss) 25 mg in 250 mls @ 22.92 mls/hr IV .[id number] [facility]; Protocol Stop: 10/25/25 04:29 Last Admin: 09/25/25 04:39 Dose: 0.5 mcg/kg/min, 22.9 mls/hr Documented By: LORI Co-signed By: KRAIG Insulin Aspart (Insulin Aspart Per Unit Charge) 0 units SC Q6 [facility] Stop: 10/24/25 18:59 Last Admin: 09/25/25 00:49 Dose: Not Given Documented By: Admin: 09/24/25 20:03 Dose: Not Given Documented By: asm Metoprolol Succinate (Metoprolol Succ 50mg Ext Rel Tab) 50 mg PO BID [facility] Stop: 10/24/25 21:44 Last Admin: 09/24/25 22:23 Dose: 50 mg Documented By: TMG Pantoprazole Sodium (Pantoprazole 40 Mg Tab) 40 mg PO BID [facility] Stop: 10/24/25 20:59 Last Admin: 09/24/25 22:22 Dose: 40 mg Documented By: TMG Umeclidinium/Vilanterol (Umeclidinium/Vilanterol 62.5/25mcg 7 Puffs/Inhaler) 1 puffs INH DAILY [facility] Stop: 10/24/25 21:44 Last Admin: 09/24/25 22:22 Dose: 1 puffs Documented By: BERTRAM Discontinued Medications Amiodarone HCl/Dextrose (Amiodarone 150mg / 100ml D5w) Confirm Administered Dose 150 mg IV .STK-MED ONE Stop: 09/25/25 03:48 Last Admin: 09/25/25 03:57 Dose: Not Given Documented By: BERTRAM Amiodarone HCl/Dextrose (Amiodarone 360mg / 200ml D5w) Confirm Administered Dose 360 mg IV .STK-MED ONE Stop: 09/25/25 03:49 Last Admin: 09/25/25 03:57 Dose: Not Given Documented By: BERTRAM Sodium Chloride (Nss) 1,000 mls @ 999 mls/hr IV .Q1H1M ONE Stop: 09/24/25 15:43 Last Infusion: 09/24/25 16:11 Dose: Infused Documented By: Admin: 09/24/25 14:46 Dose: 999 mls/hr Documented By: MARK Levofloxacin/Dextrose (Levaquin/D5w) 750 mg in 150 mls @ 100 mls/hr IV NOW STA Stop: 09/24/25 16:35 Last Admin: 09/24/25 15:27 Dose: Not Given Documented By: MARK Ceftriaxone Sodium (Rocephin) 2,000 mg in 50 mls @ 100 mls/hr IV NOW STA Stop: 09/24/25 15:58 Last Infusion: 09/24/25 16:10 Dose: Infused Documented By: Admin: 09/24/25 15:34 Dose: 100 mls/hr Documented By: MARK Azithromycin (Zithromax) 500 mg in 255 mls @ 127.5 mls/hr IV NOW ONE Stop: 09/24/25 17:29 Last Infusion: 09/24/25 18:12 Dose: Infused Documented By: Admin: 09/24/25 16:10 Dose: 127.5 mls/hr Documented By: MARK Sodium Chloride (Nss) 500 mls @ 999 mls/hr IV .Q31M ONE Stop: 09/24/25 17:51 Last Infusion: 09/24/25 18:00 Dose: Infused Documented By: Admin: 09/24/25 17:28 Dose: 999 mls/hr Documented By: MARK Metronidazole (Flagyl) 500 mg in 100 mls @ 100 mls/hr IV NOW STA; Protocol Stop: 09/24/25 18:30 Last Infusion: 09/24/25 18:42 Dose: Infused Documented By: Admin: 09/24/25 17:42 Dose: 100 mls/hr Documented By: MARK Piperacillin Sod/Tazobactam Sod (Zosyn) 4.5 gm in 100 mls @ 200 mls/hr IV ONE STA; Protocol Stop: 09/24/25 19:36 Last Infusion: 09/24/25 19:55 Dose: Infused Documented By: Admin: 09/24/25 19:25 Dose: 200 mls/hr Documented By: micha Amiodarone HCl/Dextrose (Nexterone / D5w) 150 mg in 100 mls @ 600 mls/hr IV NOW STA Stop: 09/25/25 03:50 Last Admin: 09/25/25 03:52 Dose: 600 mls/hr Documented By: BERTRAM Co-signed By: KANG Metoprolol Tartrate (Metoprolol Tartrate 1 Mg/Ml Vial) 5 mg IV NOW STA Stop: 09/24/25 15:37 Last Admin: 09/24/25 15:39 Dose: 5 mg Documented By: MARK Metoprolol Tartrate (Metoprolol Tartrate 1 Mg/Ml Vial) Confirm Administered Dose 5 mg IV .STK-MED ONE Stop: 09/24/25 15:38 Last Admin: 09/24/25 15:39 Dose: Not Given Documented By: MARK Metoprolol Tartrate (Metoprolol Tartrate 1 Mg/Ml Vial) 5 mg IV NOW STA Stop: 09/25/25 00:28 Last Admin: 09/25/25 00:42 Dose: 5 mg Documented By: BERTRAM Metoprolol Tartrate (Metoprolol Tartrate 1 Mg/Ml Vial) Confirm Administered Dose 5 mg IV .STK-MED ONE Stop: 09/25/25 00:29 Last Admin: 09/25/25 00:42 Dose: Not Given Documented By: BERTRAM Metoprolol Tartrate (Metoprolol Tartrate 1 Mg/Ml Vial) 2.5 mg IV NOW STA Stop: 09/25/25 03:01 Last Admin: 09/25/25 03:09 Dose: 2.5 mg Documented By: TMG Metoprolol Tartrate (Metoprolol Tartrate 1 Mg/Ml Vial) Confirm Administered Dose 5 mg IV .STK-MED ONE Stop: 09/25/25 03:03 Last Admin: 09/25/25 03:59 Dose: Not Given Documented By: TMG Non-Formulary Medication (Xjwyvwbxbj-Adgjvgtv-Icqasylpil [Breztri Aerosphere]) 2 puffs INH BID [facility] Stop: 10/24/25 20:59 Last Admin: 09/24/25 22:32 Dose: Not Given Documented By: TMG Phenylephrine HCl (Phenylephrine Hcl 25 Mg/250 Ml Nss) Confirm Administered Dose 25 mg IV .STK-MED ONE Stop: 09/25/25 04:26 Last Admin: 09/25/25 04:44 Dose: Not Given Documented By: CP ECG Additional Comments: Supraventricular tachycardia Nonspecific ST and T wave abnormality Abnormal ECG When compared with ECG [id number] 16:21,(unconfirmed) Premature ventricular complexesare no longerPresent Vent. ratehas increasedby 89bpm Nonspecific T wave abnormality, worse inAnterolateral leads Coding Level of Care Code 00075 CRITICAL CARE 1ST 30-74M Diagnoses Dysrhythmia I49.9 Shock R57.9 Hypoxia R09.02 Elevated troponin R79.89 Acute kidney injury superimposed on stage 3a chronic kidney disease N17.9; N18.31 Diverticulitis K57.92 Ileus K56.7 Acute hypoxic respiratory failure J96.01
[2025-09-25] MEDS: PHENYLEPHRINE/NSS 25 MG/250 ML BAG IV SCH (04:39)
[2025-09-25] MEDS: PHENYLEPHRINE HCL 25 MG/250 ML NSS IV ONE (04:44)
[2025-09-25] MEDS: CALCIUM GLUCONATE 1,000 MG/60 ML BAG IV STA (04:52)
[2025-09-25] MEDS: LACTATED RINGER'S 1,000 ML IV SCH (04:53)
[2025-09-25 05:11] LABS: Alanine Aminotransferase 34.0 U/L (7-52); Albumin Globulin Ratio 1.0 (0.9-2); Albumin Level 2.5 gm/dl (3.4-5.0); Alkaline Phosphatase 86.0 U/L (34-104); Anion Gap 10.0 (3-11); Bilirubin,Total 0.7 mg/dl (0.2-1.0); Blood Urea Nitrogen 48.0 mg/dl (6-23); Calcium 7.1 mg/dl (8.6-10.3); Carbon Dioxide 21.0 mmol/L (21-32); Chloride 112.0 mmol/L (98-107); Creatinine Clr Calc Pharmacy 18.9 ml/min; Globulin 2.4 gm/dl (2.5-4.0); Glucose 111.0 mg/dl (70-99(Fasting)); Magnesium 2.0 mg/dl (1.7-2.4); Potassium 3.9 mmol/L (3.5-5.1); Sodium 143.0 mmol/L (136-145); Total Protein 4.9 gm/dl (6.0-8.3)
[2025-09-25] MEDS: PIPERACILLIN/TAZOBACTAM 4.5 GM/100 ML BAG IV SCH (05:22)
[2025-09-25] MEDS ORDERED: 0.2 MICRON FILTER SET 1 EACH IV ONE (05:25)
[2025-09-25 05:56] LABS: Hematocrit (blood only) 27.2 % (42.0-52.0); Hemoglobin 8.9 g/dL (14.0-18.0); Mean Corpuscular Hemoglobin 36.6 pg (25.0-34.0); Mean Corpuscular Volume 111.9 fL (80.0-100.0); Platelet Count 40 K/uL (130-400); RDW Standard Deviation 63.4 fL (36.4-46.3); Red Blood Count 2.43 M/uL (4.70-6.10); White Blood Count 3.51 K/ul (4.8-10.8)
[2025-09-25 05:57] LABS: Acanthocytes 1+; Dohle Bodies 2+; Immature Granulocytes # (auto) 0.02 K/uL (0.01-0.20); Immature Granulocytes % (auto) 0.6 %; Macrocytosis Present; Polychromasia 1+; Toxic Granulation 2+
--- NOTE | 2025-09-25 07:22 | Communication Note ---
Date of Service: September 25, 2025 LAst night patient heart rats went to 150's narrow complex. SBP in 80's received iv lopressor 2.5 mg and 250cc fluid bolus. Heart rates didnot improved SBP remained in 80's. Gave another dose of iv Lopressor 2.5mg and in few minutes converted to NSR and SBP improved to 90's. Later in night again patient went into svt/rapid a fib Hr in 150's. SBP in 80's. Gave iv Lopressor 2.5mg and no improvement in HR and SBP. Notified ICU. Got another dose of iv Lopressor 2.5mg and no improvement of HR or BP. ICU recommended amiodrip and was started. BUT SBP dropped into 70's and was transferred to ICU and started on Pressors. Notified cardiology.
[2025-09-25 08:03] LABS: Hemoglobin A1C 5.9 % (4.5-5.6)
[2025-09-25] MEDS: METOPROLOL TARTRATE 25 MG TAB PO SCH (08:33)
[2025-09-25] MEDS: TAMSULOSIN HCL 0.4 MG CAP PO SCH (08:33)
[2025-09-25] MEDS: ADVANCED PROBIOTIC 625 MG CAPSULE PO SCH (08:33)
[2025-09-25] MEDS: CHOLECALCIFEROL 25 MCG (1000 UNITS) TAB PO SCH (08:34)
[2025-09-25] MEDS: ATORVASTATIN 40 MG TAB PO SCH (08:34)
[2025-09-25] MEDS: VITAMIN B COMPLEX TAB PO SCH (08:34)
[2025-09-25] MEDS: FOLIC ACID 1 MG TAB PO SCH (08:35)
[2025-09-25] MEDS: AZITHROMYCIN 500 MG/255 ML BAG IV SCH (08:38)
[2025-09-25] MEDS: AMIODARONE / D5W 360 MG/200 ML BAG IV SCH (08:50)
[2025-09-25] MEDS: CALCIUM GLUCONATE 1,000 MG/60 ML BAG IV SCH (08:53)
--- NOTE | 2025-09-25 09:07 | XCELERA ---
[id number]
[2025-09-25] MEDS: DIGOXIN 250 MCG in SYRINGE 9 ML IV STA (09:59)
--- NOTE | 2025-09-25 10:10 | Pharmacy Report ---
Pharmacy Glycemic Short Note 2 - Date of Service September 25, 2025 - Glycemic Short BSG Results (Last 24 hours): 09/24/25 09/24/25 09/24/25 14:51 14:54 19:59 Glucose 121 H POC Glucose 110 H POC Glucose (other) 111 H 09/25/25 09/25/25 00:08 04:39 Glucose 111 H POC Glucose 114 H POC Glucose (other) OUTPATIENT ANTIDIABETIC REGIMEN: * None * HbA1c: 5.9% (09/25/25) ASSESSMENT: * 80 yo M admitted on 09/24/25 secondary to respiratory failure and required ICU admission for vasopressor support. No home meds for DM and with a soft diagonsis of pre-DM. A1c above reflects this as well. * BSGs since admission have ranged 110-121 mg/dL. Discussed at ICU rounds. Novolog, hypoglycemia protocol, and pharmacy glycemic consult will be cancelled. No need for antidiabetic regimen while admitted. * Pharmacy to sign off. PLAN FOR INPATIENT GLYCEMIC CONTROL: * Pharmacy to sign off. Please reconsult if necessary.
[2025-09-25] MEDS ORDERED: SODIUM CHLORIDE 0.9% 1,000 ML IV SCH (10:30)
--- NOTE | 2025-09-25 10:44 | Cardiology Consultation ---
Date of Consultation September 25, 2025 Assessment & Plan (1) Demand ischemia: (2) SVT (supraventricular tachycardia): (3) ANDRES (acute kidney injury): (4) Hypotension: (5) Paroxysmal atrial flutter: (6) ASCVD (arteriosclerotic cardiovascular disease): (7) Elevated troponin: (8) Septic shock: Plan Complex 80-year-old male with metastatic malignancy with unknown primary (previously treated with pemetrexed and Keytruda) who developed nausea, vomiting, diarrhea, poor oral intake, and progressive weakness after initiation of Ramucirumab (Cyramza) and docetaxel (Taxotere) on September 17, 2025. Patient ultimately presented to the [facility] ER on 09/24/2025 hypoxic (84%), hypotensive (74/54), and tachycardic (150 bpm). Laboratory work with acute kidney injury (creatinine 3.25 mg/dL). CBC with pancytopenia, marked thrombocytopenia (40K). EKG revealed narrow complex tachycardia consistent with SVT/PAT, possible atrial flutter with diffuse STT wave depression. Patient asymptomatic in regards to tachypalpitations. High sensitivity troponin elevated (611.8 -> 679.6 -> 635.7 - > 535.6 pg/mL), representing demand ischemia in the setting of critical illness. Echocardiography with moderate reduction in LV systolic function (EF 40-45%) without regional wall motion abnormalities. Patient asymptomatic in regards to overt angina. Ongoing hypotension noted. Cortisol pending. Suspect adverse reactions to chemotherapy, cardiovascular toxicity, and septic shock. Blood cultures pending. Continue pressor support with phenylephrine. Continue IV amiodarone. Resume beta-abida therapy when blood pressure permits. Marked thrombocytopenia precludes anticoagulation. Management of septic shock as per ip counsel/hospitalist. Supervising Physician Co-Signing Physician Notes Patient seen and examined. Past medical history, surgical history, social history and family history have been reviewed. The medical record and all the above studies have been reviewed. Case DW LANA including management. Patient is still having loose watery stools whcih stated post chemo Septic/hypovolemic shock Post chemo sequelae ANDRES on CKD PAF with RVR Metastatic malignancy Pancytopenia Abn Troponin - likely due to demand ischemia and not indicative of Type I [place] Moderate LV systolic dysfunction Tachyarrhythmia and hypotension due to underlying septic/hypovolemic shock Recommend: IVF -> continue maintenance fluids until volume and hemodynamic status has stabilized and pressors are off avoid fluid boluses unless urgently/emergently indicated ABX as indicated may use diuretics prn if indicated repeat CXR in AM pressors keeping MAP > 65mmHg Hold off on all anti-HTN meds until off pressors and room for BP for them to be given Anticoagulation if no contraindication Hem-Onc consult correct and f/u electrolytes f/u renal function avoid hypovolemia keep patient euvolemic DVT prophylaxis strict I&Os History of Present Illness Reason for Consultation: NSTEMI Requesting Physician: Dr. Luke Banegas DO, ER Physician Attending Physician: [facility] [place] Hospitalist Service, Dr. Saturnino Buenrostro MD History of Present Illness Wilfred Farr is a complex 80-year-old male patient with metastatic malignancy with unknown primary who was recently hospitalized at [facility] in August 2025, presenting at that time with acute on chronic dyspnea attributed to acute decompensated heart failure with preserved ejection fraction and a large left pleural effusion, receiving IV furosemide and undergoing thoracentesis on August 06 with transudative findings. Echocardiography at that time revealed preserved LV systolic function, EF 55% with mild tricuspid regurgitation and moderate mitral regurgitation, trivial loculated apical right lateral pericardial effusion without tamponade physiology. A week ago Tuesday Mr. Farr began a new chemotherapy regimen consisting of Ramucirumab (Cyramza) and docetaxel (Taxotere), thereafter developing significant nausea, vomiting, and diarrhea. Patient describes very poor oral intake though able to take medications. He notes progressive weakness, his unable to care for him at home. Upon presentation to the [facility] on 09/24/2025 patient was hypoxic (84%), hypotensive (74/54), and tachycardic (150 bpm). EKG revealed narrow complex tachycardia consistent with SVT/PAT, possible atrial flutter with diffuse STT wave depression. High sensitivity troponin elevated as follows: 611.8 -> 679.6 -> 635.7 -> 535.6 pg/mL. Patient received 1.5 L fluid resuscitation and IV antibiotics in the ER. Patient was initially admitted to telemetry and ultimately transferred to the ICU overnight due to tachycardia and hypotension requiring vasopressor support with Abram-Synephrine. IV Amiodarone infusion initiated. Review of telemetry reveals supraventricular tachyarrhythmias SVT, PAT, AVNRT, atrial flutter/fibrillation. CBC notable for pancytopenia including marked thrombocytopenia. Chest x-ray with interstitial pulmonary edema and bibasilar opacities suggestive of pneumonia, small to moderate left pleural effusion. CT imaging of the abdomen and pelvis revealed an ileus with findings suggesting mild descending colonic acute diverticulitis. Blood cultures pending. Patient denies palpitations, shortness of breath, or chest pain. Problem List: ASCVD. Status post inferior wall myocardial infarction. Status post drug-eluting stent placement to the ramus that had collaterals to the right on June 21, 2017. Lexiscan nuclear stress testing negative for ischemia on August 09, 2019. Paroxysmal atrial fibrillation Anticoagulation previously declined. Mild bilateral internal carotid artery disease AAA, 3.5 cm in April 2024. Mild lower extremity peripheral arterial occlusive disease on the right, likely located in the aortoiliac location). No significant disease on the left. Frequent ventricular ectopy. 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 Chronic tobacco abuse. Emphysematous lung changes. COPD. Pulmonary nodules. Metastatic poorly differentiated carcinoma with unknown primary. Bladder cancer Type II diabetes mellitus Chronic kidney disease History of renal calculi Anemia Dyslipidemia. Melanoma of skin Prior lumbar disc surgery Family History: Mother with CAD, [place] at 71. Father with CAD, CABG at 75. Social History: Smoker. . Resides at [facility]. Allergies Allergy/AdvReac Type Severity Reaction Status Date / Time bee venom protein (honey bee) Allergy Severe ANAPHYLAXIS Verified 06/21/25 20:53 cephalexin [From Keflex] Allergy Unknown CAN'T Verified 06/21/25 20:53 MD CHIDI ADDED TO LIST Home Medications Medication Instructions Recorded Confirmed Type atorvastatin 80 mg tablet 80 mg PO DAILY 04/22/20 09/24/25 History cholecalciferol (vitamin D3) 25 1,000 unit PO QAM 04/22/20 09/24/25 History mcg (1,000 unit) capsule (Vitamin D3) epinephrine 0.3 mg/0.3 mL 0.3 mg IM DIRECTED PRN Allergic 04/22/20 09/24/25 History injection, auto-injector Reaction nitroglycerin 0.4 mg sublingual 0.4 mg sublingual DIRECTED PRN 04/22/20 09/24/25 History tablet (Nitrostat) Chest Pain tamsulosin 0.4 mg capsule 0.4 mg PO QAM 04/22/20 09/24/25 History lisinopril 2.5 mg tablet 2.5 mg PO QAM 02/03/23 09/24/25 History albuterol sulfate 90 mcg/actuation 2 inh inhalation Q4H PRN shortness 05/18/25 09/24/25 History aerosol inhaler of breath or wheezing budesonide 160 mcg-glycopyr 9 2 inh inhalation BID 05/18/25 09/24/25 History mcg-formot 4.8 mcg/actuation HFA inhaler (Breztri Aerosphere) folic acid 1 mg tablet 1 mg PO QAM 05/18/25 09/24/25 History prochlorperazine maleate 10 mg 10 mg PO Q6H PRN Nausea And 05/18/25 09/24/25 History tablet Vomiting trazodone 50 mg tablet 50 mg PO HS 05/18/25 09/24/25 History pantoprazole 40 mg tablet,delayed 40 mg PO BID #60 tabs 05/21/25 09/24/25 Rx release B-complex with vitamin C 1 cap PO QAM 06/21/25 09/24/25 History aspirin 81 mg tablet,delayed 81 mg PO QAM 06/21/25 09/24/25 History release dexamethasone 4 mg tablet 8 mg PO DIRECTED PRN DAYS 2,3,4 06/21/25 09/24/25 History OF CHEMO lidocaine-prilocaine 2.5 %-2.5 % 1 applic topical DIRECTED PRN 06/21/25 09/24/25 History topical cream ACCESSING MEDIPORT loperamide 1 mg/7.5 mL oral liquid 0.5 mg PO DAILY PRN Diarrhea 06/21/25 09/24/25 History (Imodium A-D) loratadine 10 mg tablet (Claritin) 10 mg PO DAILY PRN START DAY OF 06/21/25 09/24/25 History CHEMO X 5 DAYS. metoprolol succinate 50 mg 50 mg PO BID 06/21/25 09/24/25 History tablet,extended release 24 hr ondansetron HCl 8 mg tablet 8 mg PO Q8H PRN NAUSEA/VOMITING 06/21/25 09/24/25 History oxycodone 5 mg tablet 5 mg PO Q4H PRN pain #10 tabs 06/23/25 09/24/25 Rx L.acidop,casei,lactis,rham-B.lact,zac 1 cap PO QAM 08/15/25 09/24/25 History 625 mg (10 billion cell) capsule (Advanced Probiotic) Patient History Medical History (Updated 09/25/25 @ 10:53 by Luke Sanchez) Demand ischemia PAD (peripheral artery disease) Mild bilateral ICA disease (per 2019 carotid duplex) Arterial doppler of LE showed mild PAD on right side (April 2021) History of Mohs micrographic surgery for skin cancer History of gout History of melanoma Hyperlipidemia BPH (benign prostatic hyperplasia) Myocardial Infarction 1996 > anterior wall [place] Kidney stone 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 Surgical History History of urologic surgery History of cancer surgery bladder History of cystoscopy History of tooth extraction History of lithotripsy recent--08/21/21 @ [place] History of cardiac cath 2016 > 1 STENT > [facility] Hx of colonoscopy History of lumbar spinal fusion 2010 1968 Family History Father Diabetes Grandmother (Paternal) Diabetes Other Cancer Coronary heart disease Hypertension No family history of adverse response to anesthesia Social History Smoking Status: Current every day smoker Tobacco Type: Cigarettes Cigarettes Per Day: 3; Second Hand Exposure: Yes; Do You Dip or Chew Tobacco: No; Hx Alcohol Use: No Hx Substance Use: No Preferred Language: Bulgarian Communication Ability: Effective 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 Skin: Pallor HENT: Normocephalic. Atraumatic. Eyes: PER. Conjunctiva pink, sclera pale. Neck: No JVD. + HJR. Heart: Regular at 60 bpm. Soft systolic murmur. No rub. Lungs: Decreased. Diminished. Absent breath sounds at the left base. Scattered rhonchi. Abdomen: +BS. Soft. Nontender. No masses or organomegaly. Extremities: No edema. Limited neurological examination is without focal deficits. Pulses: radial=2/4, posterior tibial=1-2/4 on the left and 2/4 on the right Results & Data Vital Signs (Past 12 Hours) Vital Signs Temp Pulse Pulse Resp BP BP BP 09/25/25 09:15 134 H 24 09/25/25 09:15 73/54 L 09/25/25 09:00 99/52 L 09/25/25 09:00 99/52 L 09/25/25 09:00 55 L 15 09/25/25 08:45 79 13 09/25/25 08:30 95/61 L 09/25/25 08:30 95/61 L 09/25/25 08:30 131 H 17 09/25/25 08:21 87/61 L 09/25/25 08:21 87/61 L 09/25/25 08:21 133 H 24 09/25/25 08:20 75/54 L 09/25/25 08:18 56 L 17 09/25/25 08:15 61 20 09/25/25 08:15 92/46 L 09/25/25 08:00 132 H 22 09/25/25 08:00 86/60 L 09/25/25 07:45 132 H 20 09/25/25 07:45 98/58 L 09/25/25 07:45 98/58 L 09/25/25 07:30 94/60 L 09/25/25 06:00 62 22 09/25/25 06:00 82/43 L 09/25/25 06:00 82/43 L 09/25/25 06:00 82/43 L 09/25/25 06:00 82/43 L 09/25/25 05:59 89/39 L 09/25/25 05:57 81 17 09/25/25 05:51 141 H 27 H 09/25/25 05:45 81/58 L 09/25/25 05:45 81/58 L 09/25/25 05:45 81/58 L 09/25/25 05:45 81/58 L 09/25/25 05:45 141 H 24 09/25/25 05:42 141 H 24 09/25/25 05:30 87/63 L 09/25/25 05:30 87/63 L 09/25/25 05:30 87/63 L 09/25/25 05:30 87/63 L 09/25/25 05:30 141 H 19 09/25/25 05:21 142 H 22 09/25/25 05:15 142 H 15 09/25/25 05:15 94/61 L 09/25/25 05:15 94/61 L 09/25/25 05:15 94/61 L 09/25/25 05:15 94/61 L 09/25/25 05:12 143 H 22 09/25/25 05:00 142 H 19 09/25/25 05:00 86/53 L 09/25/25 05:00 86/53 L 09/25/25 05:00 86/53 L 09/25/25 05:00 86/53 L 09/25/25 05:00 86/53 L 09/25/25 04:54 141 H 24 09/25/25 04:54 87/60 L 09/25/25 04:54 87/60 L 09/25/25 04:54 87/60 L 09/25/25 04:54 87/60 L 09/25/25 04:54 87/60 L 09/25/25 04:51 141 H 21 09/25/25 04:45 141 H 22 09/25/25 04:45 87/56 L 09/25/25 04:45 87/56 L 09/25/25 04:45 87/56 L 09/25/25 04:45 87/56 L 09/25/25 04:42 141 H 22 09/25/25 04:38 77/56 L 09/25/25 04:38 77/56 L 09/25/25 04:38 77/56 L 09/25/25 04:38 77/56 L 09/25/25 04:38 77/56 L 09/25/25 04:06 138 H 18 76/46 L 09/25/25 04:02 140 H 18 78/49 L 09/25/25 04:02 140 H 09/25/25 03:58 142 H 09/25/25 03:55 150 H 18 62/45 L 09/25/25 03:55 148 H 18 62/45 L 09/25/25 03:55 148 H 09/25/25 03:54 147 H 18 09/25/25 03:54 150 H 18 09/25/25 03:53 150 H 18 69/37 L 09/25/25 03:53 149 H 18 69/37 L 09/25/25 03:53 149 H 18 09/25/25 03:50 155 H 18 68/38 L 09/25/25 03:47 154 H 18 86/56 L 09/25/25 03:36 152 H 18 78/49 L 09/25/25 03:23 153 H 18 77/52 L 09/25/25 03:14 154 H 18 83/51 L 09/25/25 03:12 154 H 18 83/49 L 09/25/25 03:09 153 H 18 88/54 L 09/25/25 03:07 153 H 18 77/43 L 09/25/25 03:06 153 H 18 80/52 L 09/25/25 02:42 36.9 C 74 18 93/52 L 09/25/25 01:18 73 09/25/25 00:42 161 H 09/25/25 00:37 69 97/58 L 09/25/25 00:37 156 H 82/52 L 09/25/25 00:33 163 H 80/50 L 09/25/25 00:32 76/56 L 09/25/25 00:27 166 H 100/66 09/25/25 00:23 163 H 80/56 L 09/24/25 23:31 37.1 C 80 18 107/57 L Pulse Ox O2 Del Method O2 Flow Rate 09/25/25 09:15 92 09/25/25 09:15 09/25/25 09:00 09/25/25 09:00 09/25/25 09:00 97 09/25/25 08:45 09/25/25 08:30 09/25/25 08:30 09/25/25 08:30 09/25/25 08:21 09/25/25 08:21 09/25/25 08:21 97 09/25/25 08:20 09/25/25 08:18 97 09/25/25 08:15 09/25/25 08:15 09/25/25 08:00 95 09/25/25 08:00 09/25/25 07:45 92 High Flow Nasal Cannula 8 09/25/25 07:45 09/25/25 07:45 09/25/25 07:30 09/25/25 06:00 09/25/25 06:00 09/25/25 06:00 09/25/25 06:00 09/25/25 06:00 09/25/25 05:59 09/25/25 05:57 96 09/25/25 05:51 97 09/25/25 05:45 09/25/25 05:45 09/25/25 05:45 09/25/25 05:45 09/25/25 05:45 09/25/25 05:42 97 09/25/25 05:30 09/25/25 05:30 09/25/25 05:30 09/25/25 05:30 09/25/25 05:30 09/25/25 05:21 97 09/25/25 05:15 96 09/25/25 05:15 09/25/25 05:15 09/25/25 05:15 09/25/25 05:15 09/25/25 05:12 93 09/25/25 05:00 96 09/25/25 05:00 09/25/25 05:00 09/25/25 05:00 09/25/25 05:00 09/25/25 05:00 09/25/25 04:54 97 09/25/25 04:54 09/25/25 04:54 09/25/25 04:54 09/25/25 04:54 09/25/25 04:54 09/25/25 04:51 96 09/25/25 04:45 95 09/25/25 04:45 09/25/25 04:45 09/25/25 04:45 09/25/25 04:45 09/25/25 04:42 95 09/25/25 04:38 09/25/25 04:38 09/25/25 04:38 09/25/25 04:38 09/25/25 04:38 09/25/25 04:06 93 Nasal Cannula 13 09/25/25 04:02 98 Nasal Cannula 13 09/25/25 04:02 96 Nasal Cannula 13 09/25/25 03:58 94 Nasal Cannula 13 09/25/25 03:55 98 Nasal Cannula 13 09/25/25 03:55 99 Nasal Cannula 13 09/25/25 03:55 99 Nasal Cannula 13 09/25/25 03:54 91 Nasal Cannula 13 09/25/25 03:54 70 L Nasal Cannula 13 09/25/25 03:53 99 Nasal Cannula 13 09/25/25 03:53 99 Nasal Cannula 13 09/25/25 03:53 99 Nasal Cannula 13 09/25/25 03:50 100 Nasal Cannula 13 09/25/25 03:47 100 Nasal Cannula 13 09/25/25 03:36 95 Nasal Cannula 13 09/25/25 03:23 95 Nasal Cannula 13 09/25/25 03:14 94 Nasal Cannula 13 09/25/25 03:12 94 Nasal Cannula 13 09/25/25 03:09 94 Nasal Cannula 09/25/25 03:07 95 Nasal Cannula 13 09/25/25 03:06 96 Nasal Cannula 13 09/25/25 02:42 94 High Flow Nasal Cannula 13 09/25/25 01:18 09/25/25 00:42 09/25/25 00:37 09/25/25 00:37 09/25/25 00:33 09/25/25 00:32 09/25/25 00:27 09/25/25 00:23 09/24/25 23:31 93 High Flow Nasal Cannula 10 Laboratory Results Cardiac Enzymes 09/24/25 09/24/25 09/24/25 Range/Units 14:51 16:57 23:22 AST 53 H (13-39) U/L Troponin I High Sens 611.8 H* 679.6 H* 635.7 H* (0-20) pg/ml B-Natriuretic Peptide 1006 H (0-100) pg/ml 09/25/25 Range/Units 04:39 AST 47 H (13-39) U/L Troponin I High Sens 535.6 H* (0-20) pg/ml B-Natriuretic Peptide (0-100) pg/ml Coagulation 09/24/25 Range/Units 14:51 B-Natriuretic Peptide 1006 H (0-100) pg/ml CBC 09/24/25 09/25/25 Range/Units 14:51 04:39 WBC 3.46 L 3.51 L (4.8-10.8) K/ul RBC 2.56 L 2.43 L (4.70-6.10) M/uL Hgb 9.4 L 8.9 L (14.0-18.0) g/dL Hct 29.1 L 27.2 L (42.0-52.0) % Plt Count 44 L 40 L (130-400) K/uL Neut # (Auto) 2.50 2.94 (1.40-6.50) K/uL Lymph # (Auto) 0.46 L 0.29 L (1.20-3.40) K/uL [place] # (Auto) 0.42 0.21 (0.11-0.59) K/uL Eos # (Auto) 0.00 0.00 (0.00-0.50) K/uL Baso # (Auto) 0.07 0.05 (0.00-0.20) K/uL Comprehensive Metabolic Panel 09/24/25 09/25/25 Range/Units 14:51 04:39 Sodium 141 143 (136-145) mmol/L Potassium 4.8 3.9 (3.5-5.1) mmol/L Chloride 107 112 H (98-107) mmol/L Carbon Dioxide 26 21 (21-32) mmol/L BUN 47 H 48 H (6-23) mg/dl Creatinine 3.25 H 2.97 H (0.6-1.4) mg/dl Glucose 121 H 111 H (70-99(Fasting)) mg/dl Calcium 7.7 L 7.1 L (8.6-10.3) mg/dl Direct Bilirubin 0.5 H (0-0.2) mg/dl AST 53 H 47 H (13-39) U/L ALT 34 34 (7-52) U/L Alkaline Phosphatase 112 H 86 (34-104) U/L Total Protein 5.7 L 4.9 L (6.0-8.3) gm/dl Albumin 2.9 L 2.5 L (3.4-5.0) gm/dl Intake and Output 09/24/25 09/25/25 09/25/25 22:59 06:59 14:59 Intake Total 2004. 1312.050 / 3317.050 506.565 / 506.565 Output Total 1000 / 1000 Balance 2004.050 312.050 / 2317.050 506.565 / 506.565 Intake: IV 2004.050 1312.050 / 3317.050 506.565 / 506.565 Amiodarone / D5w 150 mg In 100 200 / 200 ml @ 600 mls/hr IV NOW STA Rx#: [id number] Amiodarone / D5w 360 mg In 200 159.285 / 159.285 ml @ 1 MG/MIN 33.333 mls/hr IV ONE ONE Rx#:[id number] Azithromycin 500 mg In 255 ml @ 255 / 255 127.5 mls/hr IV NOW ONE Rx#: [id number] Calcium Gluconate 1,000 mg In 60 / 60 120 / 120 60 ml @ 240 mls/hr IV Q15M [facility] Rx#:[id number] Lactated Ringer's 1,000 ml @ 90 145.5 / 145.5 mls/hr IV .Q11H7M [facility] Rx#: [id number] Phenylephrine/Nss 25 mg In 250 111.883 / 111.883 127.28 / 127.28 ml @ 1.5 MCG/KG/MIN 68.76 mls/ hr IV .Q3H39M [facility] Rx#:[id number] Piperacillin/Tazobactam 4.5 gm 100 / 100 100 / 100 In 100 ml @ 25 mls/hr IV Q12H [facility] Rx#:[id number] Sodium Chloride 0.9% 1,000 ml @ 1000 / 1794.667 794.667 / 1794.667 80 mls/hr IV .[id number] [facility] Rx#: [id number] Sodium Chloride 0.9% 500 ml @ 500 / 500 999 mls/hr IV .Q31M [facility] Rx#: [id number] cefTRIAXone SODIUM 2,000 mg In 50 / 50 50 ml @ 100 mls/hr IV NOW STA Rx#:[id number] metroNIDAZOLE 500 mg In 100 ml 100 / 100 @ 100 mls/hr IV NOW STA Rx#: [id number] Oral 0 / 0 Output: Urine Amount (Catheter) 1000 / 1000 Straight 1000 / 1000 Other: Weight 76.4 kg 76.4 kg Weight Measurement Method Built in [facility] Patient Weight 09/26/25 06:59 Weight 76.4 kg Diagnostic Findings September 25, 2025 TTE ([facility], Dr. Rivera): Left ventricular systolic function is moderately reduced. Left ventricular ejection fraction 40 to 45%. Grade 2 diastolic dysfunction, consistent with elevated left atrial pressure. Mild valvular aortic stenosis. Mild to moderate pulmonic valve regurgitation. Mild to moderate mitral regurgitation. Mild tricuspid regurgitation. PG Care Time/CCT Total # of Minutes Spent Total Time Spent with Patient: Total time spent is greater than 50% in coordination of care (as documented) at patient's floor/unit and/or counseling patient: Coding Level of Care Code 87725 INT INP/OBS CARE 3/75MIN Diagnoses Demand ischemia I24.89 SVT (supraventricular tachycardia) I47.10 ANDRES (acute kidney injury) N17.9 Hypotension I95.9 Paroxysmal atrial flutter I48.92 ASCVD (arteriosclerotic cardiovascular disease) I25.10 Elevated troponin R79.89 Septic shock A41.9; R65.21
--- NOTE | 2025-09-25 10:57 | Electrocardiogram Report ---
Test Reason : Blood Pressure : */* mmHG Vent. Rate : 153 BPM Atrial Rate : * BPM P-R Int : * ms QRS Dur : 100 ms QT Int : 302 ms P-R-T Axes : * 18 190 degrees QTcB Int : 482 ms Supraventricular tachycardia Nonspecific ST and T wave abnormality Abnormal ECG When compared with ECG of 24-Sep-2025 16:21, (unconfirmed) Premature ventricular complexes are no longer Present Vent. rate has increased by 89 bpm Nonspecific T wave abnormality, worse in Anterolateral leads Confirmed by Alec Wells ([id number]) on 09/25/2025 10:57:09 AM Referred By: REFERRED SELF Confirmed By: Alec Wells
--- NOTE | 2025-09-25 10:58 | Electrocardiogram Report ---
Test Reason : Blood Pressure : */* mmHG Vent. Rate : 133 BPM Atrial Rate : * BPM P-R Int : * ms QRS Dur : 108 ms QT Int : 284 ms P-R-T Axes : * 18 251 degrees QTcB Int : 422 ms Supraventricular tachycardia Low voltage QRS Nonspecific T wave abnormality Abnormal ECG When compared with ECG of 25-Sep-2025 03:25, (unconfirmed) No significant change was found Confirmed by Alec Wells ([id number]) on 09/25/2025 10:57:57 AM Referred By: REFERRED SELF Confirmed By: Alec Wells
--- NOTE | 2025-09-25 11:01 | Electrocardiogram Report ---
Test Reason : Blood Pressure : */* mmHG Vent. Rate : 64 BPM Atrial Rate : 64 BPM P-R Int : 142 ms QRS Dur : 98 ms QT Int : 384 ms P-R-T Axes : 27 21 25 degrees QTcB Int : 396 ms Sinus rhythm with occasional Premature ventricular complexes Nonspecific T wave abnormality Abnormal ECG When compared with ECG of 24-Sep-2025 16:08, (unconfirmed) Premature ventricular complexes are now Present Vent. rate has decreased by 88 bpm T wave inversion no longer evident in Anterior leads Confirmed by Alec Wells ([id number]) on 09/25/2025 11:00:43 AM Referred By: Confirmed By: Alec Wells
--- NOTE | 2025-09-25 11:02 | Electrocardiogram Report ---
Test Reason : Blood Pressure : */* mmHG Vent. Rate : 152 BPM Atrial Rate : * BPM P-R Int : * ms QRS Dur : 94 ms QT Int : 296 ms P-R-T Axes : * 19 221 degrees QTcB Int : 470 ms Supraventricular tachycardia Abnormal ECG When compared with ECG of 24-Sep-2025 14:46, No significant change was found Confirmed by Alec Wells ([id number]) on 09/25/2025 11:02:16 AM Referred By: Confirmed By: Alec Wells
[2025-09-25 11:14] LABS: Appearance Urine Clear (Clear); Bacteria Urine Automated None Seen (None Seen); Glucose Urine UA Negative (Negative); RBC Urine Automated 0-2 /hpf (0-2); WBC Urine Automated 0-5 /hpf (0-5)
--- NOTE | 2025-09-25 14:50 | Hospitalist Progress Note ---
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 Shock Multifactorial: Septic from Pneumonia, Diverticulitis; Hypovolemic from Diarrhea; Cardiogenic from systolic CHF blood culture: pending remains on Phenylephrine continue IV Zosyn + Azithro continue IV fluids Echocardiogram was performed. Moderately reduced systolic function with an EF of 40 to 45% and global hypokinesis. Grade 2 diastolic dysfunction. Normal RV size and function. Mild aortic stenosis, mild to moderate pulmonic regurg, mild MR and TR. Acute hypoxic respiratory failure Interstitial pulmonary edema, small to moderate L pleural effusion seen on CXR Small layering pleural effusions and compressive bilateral lower lobe consolidation seen on CTAP Acute on chronic HFpEF Resp BioFire negative. Requiring 8L OxyMask in ED, maintaining sats in the upper 90s. BNP 1006 however pt is hypotensive and appears dry on exam, s/p 1.5L IVF in the ED. Continue IVF, update TTE as per below. Prior TTE last month: EF 55%, moderately dilated LA, moderate MR, mild TR. Wean O2 as tolerated. Does have nonproductive cough/congestion and CXR reads patchy bibasilar opacities, possible PNA. Covering with IV Zosyn for now, as per below. Pulm toileting as able. May need to consider pulm consult regarding b/l effusions. 09/25 wean off o2 accordingly continue IV Abx Lasix held due to hypotension Atrial Fibrillation likely secondary to above on Amiodarone anticoagulation held as Plt 40k N/V/D Ileus with findings suggestive of mild descending colonic acute diverticulitis on CTAP Maintain NPO status, continue IVF and PRN electrolyte repletion. S/p IV Zithromax, Rocephin and Flagyl in ED. Appreciate gen surgery consult. Empiric ABX coverage with IV Zosyn for now. Check stool PCR, C. diff studies: negative ANDRES superimposed on CKD stage IIIa Cr previously 1.8 as of 08/19/25, appears baseline prior to that was around 1- 1.2 as per records. Cr 3.25 on presentation today. Suspect related to volume depletion ISO above, IVF onboard. crea improving to 2.9 Pancytopenia Metastatic poorly-differentiated carcinoma with unknown primary, most likely origin thought pulmonary F/w [facility] oncology, Dr. Everett. Diagnosed in 2023. PET scan done on 04/23/24 which revealed metabolically active pleural-based lung nodules suspicious for metastases and metabolically active prevascular and left suprahilar lymphadenopathy. Completed 6 cycles of combination of pemetrexed plus carboplatin Keytruda with overall good tolerance. Follow-up PET scan done after 4 cycles of chemotherapy revealed good response. Was on maintenance treatment including combination of pemetrexed and Keytruda. Follow-up PET scan done on 08/07/25 revealed disease progression. Now on combination Docetaxel and Ramucirumab; last received chemotherapy on 09/17/25. Continue PRN oxy IR for cancer-related pain. Neutropenic precautions, fall precautions in light of thrombocytopenia. monitor Chronic anemia: H/H appears stable compared to prior, continue to monitor. DMII with peripheral vascular disease: Hgb A1c 5.7% 1mo ago, SSI protocol while admitted with BSG checks ACHS. ASCVD: Continue ASA, statin therapy. COPD: Continue home inhaler. Infrarenal abdominal aortic aneurysm Appears stable on CTAP today, measuring 3.3cm. Recommend CTAP or MR imaging follow-up in 3yr as per ACR White Paper guidelines. HTN: Hold lisinopril for now given hypotension, resume as able/tolerated. PAF: Not on chemical AC per patient's preference. Continue BB for now. GERD: Continue PPI BID. BPH: Continue Flomax. Hypocalcemia: Check vit D level, continue to monitor. DVT Prophylaxis: SCDs/TEDs only for now in light of thrombocytopenia Code Status: FULL CODE - Discussed with pt at bedside in the ED. Disposition: Admit to PCU Admission and Anticipated Discharge Date Admission Date: September 24, 2025 Subjective seen resting in bed, not in distress appears weak states he feels tired breathing improving no chest pain no abdominal pain, nausea Review of Systems Review of Systems: all noted and negative except for above Physical Exam Physical Exam: General- oriented x 3, not in distress, speaks in sentences with no effort or accessory muscle use Eyes- anicteric Neck- no JVD Lungs- (+) mild rales BL Heart- normal rate, irregularly irregular rhythm; no murmurs Abdomen- normal bowel sounds, nondistended, soft, nontender Extremities- no pretibial edema, no calf tenderness Neuro- alert, oriented x 3; no gross focal neurologic deficits Skin- warm & dry Results & Data Results & Data Vital Signs (Past 12 Hours) Vital Signs Pulse Pulse Resp BP BP Pulse Ox O2 Del Method 09/25/25 14:30 55 L 25 H 97 09/25/25 14:15 111/48 L 09/25/25 14:15 111/48 L 09/25/25 14:15 53 L 20 93 09/25/25 14:01 102/35 L 09/25/25 14:01 102/35 L 09/25/25 14:00 52 L 21 89 L 09/25/25 13:45 109/46 L 09/25/25 13:45 109/46 L 09/25/25 13:45 52 L 21 95 09/25/25 13:30 104/47 L 09/25/25 13:30 104/47 L 09/25/25 13:30 52 L 20 95 09/25/25 13:23 108/46 L 09/25/25 13:23 108/46 L 09/25/25 13:21 55 L 30 H 95 09/25/25 13:15 98/50 L 09/25/25 13:15 98/50 L 09/25/25 13:15 51 L 19 09/25/25 13:00 108/46 L 09/25/25 13:00 53 L 26 H 96 09/25/25 12:45 114/49 L 09/25/25 12:45 61 21 97 Room Air 09/25/25 12:45 114/49 L 09/25/25 12:32 105/45 L 09/25/25 12:30 105/45 L 09/25/25 12:30 53 L 25 H 09/25/25 12:15 52 L 17 93 09/25/25 12:15 94/57 L 09/25/25 12:15 94/57 L 09/25/25 12:05 107/43 L 09/25/25 12:03 54 L 27 H 97 09/25/25 12:00 53 L 23 95 09/25/25 12:00 108/46 L 09/25/25 11:46 100/48 L 09/25/25 11:45 52 L 25 H 94 09/25/25 11:42 56 L 24 91 09/25/25 11:42 95/48 L 09/25/25 11:32 86/31 L 09/25/25 11:30 58 L 16 91 09/25/25 11:15 98/47 L 09/25/25 11:15 98/47 L 09/25/25 11:15 53 L 18 93 09/25/25 11:00 108/50 L 09/25/25 11:00 108/50 L 09/25/25 11:00 53 L 18 96 High Flow Nasal Cannula 09/25/25 10:45 128 H 22 96 09/25/25 10:45 92/65 L 09/25/25 10:45 92/65 L 09/25/25 10:31 90/58 L 09/25/25 10:31 90/58 L 09/25/25 10:30 73 34 H 94 09/25/25 10:15 104/56 L 09/25/25 10:15 54 L 20 09/25/25 10:06 54 L 09/25/25 10:02 104/52 L 09/25/25 10:02 104/52 L 09/25/25 10:00 102/49 L 09/25/25 10:00 57 L 23 09/25/25 09:45 129 H 33 H 94 09/25/25 09:45 82/60 L 09/25/25 09:45 82/60 L 09/25/25 09:30 60 7 L 94 09/25/25 09:30 104/60 09/25/25 09:15 134 H 24 92 09/25/25 09:15 73/54 L 09/25/25 09:00 99/52 L 09/25/25 09:00 99/52 L 09/25/25 09:00 55 L 15 97 09/25/25 08:45 79 13 09/25/25 08:30 95/61 L 09/25/25 08:30 95/61 L 09/25/25 08:30 131 H 17 09/25/25 08:21 87/61 L 09/25/25 08:21 87/61 L 09/25/25 08:21 133 H 24 97 09/25/25 08:20 75/54 L 09/25/25 08:18 56 L 17 97 09/25/25 08:15 61 20 09/25/25 08:15 92/46 L 09/25/25 08:00 132 H 22 95 09/25/25 08:00 86/60 L 09/25/25 07:45 132 H 20 92 High Flow Nasal Cannula 09/25/25 07:45 98/58 L 09/25/25 07:45 98/58 L 09/25/25 07:30 High Flow Nasal Cannula 09/25/25 07:30 94/60 L 09/25/25 07:00 132 H 09/25/25 06:00 62 22 09/25/25 06:00 82/43 L 09/25/25 06:00 82/43 L 09/25/25 06:00 82/43 L 09/25/25 06:00 82/43 L 09/25/25 05:59 89/39 L 09/25/25 05:57 81 17 96 09/25/25 05:51 141 H 27 H 97 09/25/25 05:45 81/58 L 09/25/25 05:45 81/58 L 09/25/25 05:45 81/58 L 09/25/25 05:45 81/58 L 09/25/25 05:45 141 H 24 09/25/25 05:42 141 H 24 97 09/25/25 05:30 87/63 L 09/25/25 05:30 87/63 L 09/25/25 05:30 87/63 L 09/25/25 05:30 87/63 L 09/25/25 05:30 141 H 19 09/25/25 05:21 142 H 22 97 09/25/25 05:15 142 H 15 96 09/25/25 05:15 94/61 L 09/25/25 05:15 94/61 L 09/25/25 05:15 94/61 L 09/25/25 05:15 94/61 L 09/25/25 05:12 143 H 22 93 09/25/25 05:00 142 H 19 96 09/25/25 05:00 86/53 L 09/25/25 05:00 86/53 L 09/25/25 05:00 86/53 L 09/25/25 05:00 86/53 L 09/25/25 05:00 86/53 L 09/25/25 04:54 141 H 24 97 09/25/25 04:54 87/60 L 09/25/25 04:54 87/60 L 09/25/25 04:54 87/60 L 09/25/25 04:54 87/60 L 09/25/25 04:54 87/60 L 09/25/25 04:51 141 H 21 96 09/25/25 04:45 141 H 22 95 09/25/25 04:45 87/56 L 09/25/25 04:45 87/56 L 09/25/25 04:45 87/56 L 09/25/25 04:45 87/56 L 09/25/25 04:42 141 H 22 95 09/25/25 04:38 77/56 L 09/25/25 04:38 77/56 L 09/25/25 04:38 77/56 L 09/25/25 04:38 77/56 L 09/25/25 04:38 77/56 L 09/25/25 04:06 138 H 18 76/46 L 93 Nasal Cannula 09/25/25 04:02 140 H 18 78/49 L 98 Nasal Cannula 09/25/25 04:02 140 H 96 Nasal Cannula 09/25/25 03:58 142 H 94 Nasal Cannula 09/25/25 03:55 150 H 18 62/45 L 98 Nasal Cannula 09/25/25 03:55 148 H 18 62/45 L 99 Nasal Cannula 09/25/25 03:55 148 H 99 Nasal Cannula 09/25/25 03:54 147 H 18 91 Nasal Cannula 09/25/25 03:54 150 H 18 70 L Nasal Cannula 09/25/25 03:53 150 H 18 69/37 L 99 Nasal Cannula 09/25/25 03:53 149 H 18 69/37 L 99 Nasal Cannula 09/25/25 03:53 149 H 18 99 Nasal Cannula 09/25/25 03:50 155 H 18 68/38 L 100 Nasal Cannula 09/25/25 03:47 154 H 18 86/56 L 100 Nasal Cannula 09/25/25 03:36 152 H 18 78/49 L 95 Nasal Cannula 09/25/25 03:23 153 H 18 77/52 L 95 Nasal Cannula 09/25/25 03:14 154 H 18 83/51 L 94 Nasal Cannula 09/25/25 03:12 154 H 18 83/49 L 94 Nasal Cannula 09/25/25 03:09 153 H 18 88/54 L 94 Nasal Cannula 09/25/25 03:07 153 H 18 77/43 L 95 Nasal Cannula 09/25/25 03:06 153 H 18 80/52 L 96 Nasal Cannula O2 Flow Rate 09/25/25 14:30 09/25/25 14:15 09/25/25 14:15 09/25/25 14:15 09/25/25 14:01 09/25/25 14:01 09/25/25 14:00 09/25/25 13:45 09/25/25 13:45 09/25/25 13:45 09/25/25 13:30 09/25/25 13:30 09/25/25 13:30 09/25/25 13:23 09/25/25 13:23 09/25/25 13:21 09/25/25 13:15 09/25/25 13:15 09/25/25 13:15 09/25/25 13:00 09/25/25 13:00 09/25/25 12:45 09/25/25 12:45 09/25/25 12:45 09/25/25 12:32 09/25/25 12:30 09/25/25 12:30 09/25/25 12:15 09/25/25 12:15 09/25/25 12:15 09/25/25 12:05 09/25/25 12:03 09/25/25 12:00 09/25/25 12:00 09/25/25 11:46 09/25/25 11:45 09/25/25 11:42 09/25/25 11:42 09/25/25 11:32 09/25/25 11:30 09/25/25 11:15 09/25/25 11:15 09/25/25 11:15 09/25/25 11:00 09/25/25 11:00 09/25/25 11:00 6 09/25/25 10:45 09/25/25 10:45 09/25/25 10:45 09/25/25 10:31 09/25/25 10:31 09/25/25 10:30 09/25/25 10:15 09/25/25 10:15 09/25/25 10:06 09/25/25 10:02 09/25/25 10:02 09/25/25 10:00 09/25/25 10:00 09/25/25 09:45 09/25/25 09:45 09/25/25 09:45 09/25/25 09:30 09/25/25 09:30 09/25/25 09:15 09/25/25 09:15 09/25/25 09:00 09/25/25 09:00 09/25/25 09:00 09/25/25 08:45 09/25/25 08:30 09/25/25 08:30 09/25/25 08:30 09/25/25 08:21 09/25/25 08:21 09/25/25 08:21 09/25/25 08:20 09/25/25 08:18 09/25/25 08:15 09/25/25 08:15 09/25/25 08:00 09/25/25 08:00 09/25/25 07:45 8 09/25/25 07:45 09/25/25 07:45 09/25/25 07:30 6 09/25/25 07:30 09/25/25 07:00 09/25/25 06:00 09/25/25 06:00 09/25/25 06:00 09/25/25 06:00 09/25/25 06:00 09/25/25 05:59 09/25/25 05:57 09/25/25 05:51 09/25/25 05:45 09/25/25 05:45 09/25/25 05:45 09/25/25 05:45 09/25/25 05:45 09/25/25 05:42 09/25/25 05:30 09/25/25 05:30 09/25/25 05:30 09/25/25 05:30 09/25/25 05:30 09/25/25 05:21 09/25/25 05:15 09/25/25 05:15 09/25/25 05:15 09/25/25 05:15 09/25/25 05:15 09/25/25 05:12 09/25/25 05:00 09/25/25 05:00 09/25/25 05:00 09/25/25 05:00 09/25/25 05:00 09/25/25 05:00 09/25/25 04:54 09/25/25 04:54 09/25/25 04:54 09/25/25 04:54 09/25/25 04:54 09/25/25 04:54 09/25/25 04:51 09/25/25 04:45 09/25/25 04:45 09/25/25 04:45 09/25/25 04:45 09/25/25 04:45 09/25/25 04:42 09/25/25 04:38 09/25/25 04:38 09/25/25 04:38 09/25/25 04:38 09/25/25 04:38 09/25/25 04:06 13 09/25/25 04:02 13 09/25/25 04:02 13 09/25/25 03:58 13 09/25/25 03:55 13 09/25/25 03:55 13 09/25/25 03:55 13 09/25/25 03:54 13 09/25/25 03:54 13 09/25/25 03:53 09/25/25 03:53 13 09/25/25 03:53 13 09/25/25 03:50 13 09/25/25 03:47 13 09/25/25 03:36 13 09/25/25 03:23 13 09/25/25 03:14 13 09/25/25 03:12 13 09/25/25 03:09 09/25/25 03:07 13 09/25/25 03:06 13
[2025-09-25] MEDS: LACTATED RINGER'S 500 ML IV ONE (16:07)
[2025-09-26 05:29] LABS: Anion Gap 8.0 (3-11); Blood Urea Nitrogen 42.0 mg/dl (6-23); Calcium 7.0 mg/dl (8.6-10.3); Carbon Dioxide 22.0 mmol/L (21-32); Chloride 114.0 mmol/L (98-107); Creatinine Clr Calc Pharmacy 23.1 ml/min; Glucose 96.0 mg/dl (70-99(Fasting)); Magnesium 1.9 mg/dl (1.7-2.4); Potassium 3.3 mmol/L (3.5-5.1); Sodium 144.0 mmol/L (136-145)
[2025-09-26 05:31] LABS: Hematocrit (blood only) 28.7 % (42.0-52.0); Hemoglobin 9.4 g/dL (14.0-18.0); Mean Corpuscular Hemoglobin 37.2 pg (25.0-34.0); Mean Corpuscular Volume 113.4 fL (80.0-100.0); Platelet Count 51 K/uL (130-400); RDW Standard Deviation 62.9 fL (36.4-46.3); Red Blood Count 2.53 M/uL (4.70-6.10); White Blood Count 9.69 K/ul (4.8-10.8)
[2025-09-26 05:37] LABS: Acanthocytes 1+; Immature Granulocytes # (auto) 0.12 K/uL (0.01-0.20); Immature Granulocytes % (auto) 1.2 %; Macrocytosis Present; Polychromasia 1+; Toxic Granulation 2+; Toxic Vacuolation 1+
--- NOTE | 2025-09-26 08:08 | Critical Care Progress Note ---
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 The patient follows with Dr. Everett at [facility] oncology. He received 6 cycles of pemetrexed plus carboplatin and Keytruda. Continued on maintenance with pemetrexed and Keytruda. Then transition to docetaxel and ramicurimab. Last therapy was on 09/17/2025. The patient presented to the hospital 09/24/2025 with a complaint of nausea, vomiting and diarrhea for 3 days duration. He was unable to tolerate p.o. Also worsening shortness of breath, does not normally wear oxygen at home. In the emergency department the patient was found to be hypoxic. Imaging of the chest was concerning for pulmonary edema with pleural effusions. BioFire was negative. Required 8 L on admission. Imaging of the abdomen showed ileus and mild descending colonic diverticulitis. The patient was in A-fib with RVR on presentation. Troponins were elevated as well as BNP. He was in ANDRES as well. General surgery and cardiology were both consulted on admission. The patient received fluid resuscitation with 2-1/2 L of fluid. Trial of Lopressor was done however the patient had worsening hypotension and continued to go in and out of A-fib. The patient was transferred to the ICU for pressor support. He was initiated on amiodarone and phenylephrine. He was continued on oxygen supplementation. No further fluid resuscitation was given. Reason Critically Ill: Arrhythmia, A-fib RVR and SVT Shock state, septic versus cardiogenic in setting of uncontrolled arrhythmias Elevated troponin Heart failure with moderately reduced ejection fraction Acute hypoxic respiratory failure Pulmonary edema and pleural effusions ANDRES on CKD Ileus Diverticulitis Metastatic carcinoma with recent chemotherapy and immunotherapy Thrombocytopenia Neuro: Awake and alert. No neurologic deficits at this time. Cardiac: Shock state Arrhythmia, A-fib RVR and SVT Elevated troponin Heart failure with moderately reduced ejection fraction Not currently on anticoagulation, has thrombocytopenia patient deferred anticoagulation previously. On amiodarone infusion, received bolus. Troponins are downtrending. Echocardiogram was performed. Moderately reduced systolic function with an EF of 40 to 45% and global hypokinesis. Grade 2 diastolic dysfunction. Normal RV size and function. Mild aortic stenosis, mild to moderate pulmonic regurg, mild MR and TR. Patient received metoprolol 12.5 mg yesterday, also got a one-time dose of digoxin due to uncontrolled heart rate. Continue phenylephrine for blood pressure support. Received 2.5 L fluid resu scitation with crystalloid on admission, got 500 cc yesterday without significant improvement in blood pressure. Will likely require fluid resuscitation in order to wean oxygen. Will hold off for now because he is in shock. Cortisol level is borderline 18, we will give a one-time dose of 100 mg of hydrocortisone and monitor patient. If he seems to be responding to this then we will do 50 every 6 while he is on pressors and wean him off. Cardiology was consulted, appreciate assistance with case. Respiratory: Acute hypoxic respite failure Underlying COPD Pulmonary edema with bilateral pleural effusions (left Thora 08/16/2025, appears transudative with low protein and LDH. Negative cultures) CT imaging was reviewed by myself small to moderate bilateral pleural effusions appreciated. Interlobular septal thickening suggesting pulmonary edema. There is also what appears to be an infiltrate, most appreciated on the left. Patient has been started on Zosyn and azithromycin. I agree with this. Continue DuoNebs. Rester BioFire was negative. Procalcitonin 1.13. MRSA nares negative. Continue oxygen supplementation, wean as tolerated. Will likely need Lasix once out of shock for pulmonary edema and pleural effusions. GI: Ileus Diverticulitis Patient has been started on Zosyn. I agree with this. Protonix 40 twice daily. RENAL/LYTES: ANDRES on CKD Electrolyte disturbance Received 3 L crystalloid resuscitation. ANDRES is improving. Making good urine. Monitor and replace electrolytes, giving 40 of p.o. potassium, 1 g of magnesium and 2 g calcium. : BPH Urinary retention Required straight cath, continue to retain. Valenzuela catheter placed. ENDO: Blood glucose acceptable. A1c slightly elevated at 5.9. Will check TSH, was ordered yesterday, no result. Called lab, they we will obtain it from this morning's labs. Cortisol is borderline 18.9, given continued shock we are going to give him 100 mg hydrocortisone this morning. If he seems to respond to this then we can do 50 every 6 and wean this off once he is off pressors. HEME: Metastatic carcinoma on chemo and immunotherapy Thrombocytopenia Place SCDs, holding heparin. Presentation could be cardiotoxicity given recent chemotherapy. Could also be immuno therapy related. ID: Shock state, septic versus cardiac related. Patient is on Zosyn and azithromycin, I agree with this. Blood cultures show no growth to date. Has an infiltrate on CT, Pro-Jd slightly elevated but downtrending. Urine does not look infected. MRSA nares negative. BioFire was negative. Feeding: Clear liquid diet Fluids: None Analgesia: Oxy Activity: Up to chair Thromboprophylaxis: SCD Ulcer prophylaxis: Pantoprazole Glycemic control: Not indicated Bowels: Mag citrate as needed Indwelling catheters: PIV Antibiotics: Zosyn and azithromycin Plan: Patient will remain in the ICU. Continued need for phenylephrine. We are going to give him a dose of hydrocortisone this morning and see how he responds to this. Waiting on TSH to come back from the lab. Heart rate is better controlled, he is on amiodarone infusion. Appreciate cardiology assistance for rate/rhythm control upon amiodarone completion. Hesitant to add any beta- blockers at this time given that he is still in shock and he has bradycardia. We are getting an EKG this morning because he looks like he may have occasional trigeminy. Holding off on Lasix given that he is still in shock. Renal function is improving. I have personally spent 45 minutes of critical care time in the direct management of this patient. This is a life/limb threatening event. This includes time spent evaluating patient, direct bedside care, chart review, placing orders, interpretation of diagnostic studies, discussion with consultants, patient, and family members, as well as other required patient management activities. This time is exclusive of all separately billable procedures, and teaching time and separate from and in addition to any other critical care service time. Admission and Anticipated Discharge Date Admission Date: September 24, 2025 Subjective Past 24-hour events: Remained in the ICU yesterday due to hypotension and continued need for vasopressors. Going in and out of SVT and A-fib. Remained on amiodarone infusion. Got 1 dose of 0.250 mg dig and 12.5 metoprolol tartrate. Heart rate improved. Less tachycardic. Blood pressure remained low however continuing the need for arvind-. Cortisol borderline. Rounding: Patient is doing well this morning. Having a clear liquid diet. Awake and alert. Says that overall he is feeling better. Remains on nasal cannula, saturation about 92% Still on arvind-. Looks like he may be going in and out of trigeminy now, heart rates in the 60s. Will get EKG. calcium still low, potassium low, mag 1.9. All are being replaced. Intake: 3559 mL Output: 1175 mL Net: +2384 mL Mechanical ventilation: None, on nasal cannula. Feeding: Clear with diet IV infusions: Amiodarone, phenylephrine Indwelling catheters: Valenzuela catheter, peripheral IV, Mediport. Laboratory: CBC: WBC 9.6, hemoglobin 9.4, platelet 51 Chemistry: Sodium 144, potassium 3.3, chloride 114, bicarb 22, BUN 42, creatinine 2.42, glucose 96, Phos 3.1, iCal 1.05, calcium 7.0, magnesium 1.9, glucose 102 ABG: None Review of Systems Review of Systems: Negative except as in HPI. Physical Exam Physical Exam: Physical examination: General: Well-appearing, well-nourished and not in acute distress. HEENT: Normocephalic, atraumatic. Extraocular movements intact. Sclera are nonicteric. No JVD appreciated. Skin: Warm and dry. No rashes appreciated. No jaundice appreciated. Cardiovascular: Heart is a regular rate and rhythm, occasional trigeminy on monitor, heart rate in the 60s. No murmurs appreciated on my exam. Lungs: Coarse with crackles, diminished at bases, no wheezing. On nasal cannula. Nontachypneic. Saturation 92%. Abdomen: Nondistended, nontender to palpation. No masses appreciated. Musculoskeletal: Normal muscle mass and tone. No gross joint deformity abno rmalities. No effusions appreciated. Neurologic: Awake and alert, oriented. CN II through XII are grossly intact. Speech is fluent. Nonfocal exam. Psychiatric: Appropriate cooperative during my exam. Results & Data Results & Data Vital Signs (Past 12 Hours) Vital Signs Temp Pulse Resp BP Pulse Ox O2 Del Method O2 Flow Rate 09/26/25 06:30 58 L 27 H 91 09/26/25 06:30 124/48 L 09/26/25 06:30 124/48 L 09/26/25 06:30 124/48 L 09/26/25 06:30 124/48 L 09/26/25 06:30 124/48 L 09/26/25 06:21 57 L 16 91 09/26/25 06:12 60 21 89 L 09/26/25 06:04 102/39 L 09/26/25 06:04 102/39 L 09/26/25 06:04 102/39 L 09/26/25 06:04 102/39 L 09/26/25 06:04 102/39 L 09/26/25 06:03 55 L 20 79 L 09/26/25 06:00 55 L 15 84 L 09/26/25 05:51 56 L 19 86 L 09/26/25 05:42 62 27 H 91 09/26/25 05:30 132 H 14 93 09/26/25 05:30 127/57 L 09/26/25 05:30 127/57 L 09/26/25 05:30 127/57 L 09/26/25 05:30 127/57 L 09/26/25 05:30 127/57 L 09/26/25 05:21 55 L 15 90 09/26/25 05:12 66 26 H 92 09/26/25 05:01 103/48 L 09/26/25 05:01 103/48 L 09/26/25 05:01 103/48 L 09/26/25 05:01 103/48 L 09/26/25 05:01 103/48 L 09/26/25 05:00 54 L 21 87 L 09/26/25 04:51 54 L 17 89 L 09/26/25 04:42 55 L 23 86 L 09/26/25 04:31 104/37 L 09/26/25 04:31 104/37 L 09/26/25 04:31 104/37 L 09/26/25 04:31 104/37 L 09/26/25 04:31 104/37 L 09/26/25 04:30 58 L 23 87 L 09/26/25 04:21 56 L 16 76 L 09/26/25 04:12 54 L 31 H 87 L 09/26/25 04:01 110/49 L 09/26/25 04:01 110/49 L 09/26/25 04:01 110/49 L 09/26/25 04:01 110/49 L 09/26/25 04:00 57 L 18 85 L 09/26/25 03:51 60 29 H 90 09/26/25 03:42 55 L 28 H 90 09/26/25 03:31 111/50 L 09/26/25 03:31 111/50 L 09/26/25 03:31 111/50 L 09/26/25 03:31 111/50 L 09/26/25 03:31 111/50 L 09/26/25 03:30 60 27 H 87 L 09/26/25 03:21 55 L 23 93 09/26/25 03:12 65 9 L 93 09/26/25 03:01 120/51 L 09/26/25 03:01 120/51 L 09/26/25 03:01 120/51 L 09/26/25 03:01 120/51 L 09/26/25 03:01 120/51 L 09/26/25 03:00 55 L 5 L 93 09/26/25 02:51 54 L 33 H 92 09/26/25 02:42 55 L 29 H 92 09/26/25 02:31 115/47 L 09/26/25 02:31 115/47 L 09/26/25 02:31 115/47 L 09/26/25 02:31 115/47 L 09/26/25 02:31 115/47 L 09/26/25 02:30 55 L 24 91 09/26/25 02:21 59 L 20 92 09/26/25 02:12 59 L 28 H 91 09/26/25 02:02 98/60 L 09/26/25 02:02 98/60 L 09/26/25 02:02 98/60 L 09/26/25 02:02 98/60 L 09/26/25 02:02 98/60 L 09/26/25 02:00 56 L 24 09/26/25 01:51 56 L 4 L 90 09/26/25 01:42 50 L 7 L 89 L 12/25/25 01:31 118/32 L 09/26/25 01:31 118/32 L 09/26/25 01:31 118/32 L 09/26/25 01:31 118/32 L 09/26/25 01:30 68 28 H 09/26/25 01:21 60 27 H 92 09/26/25 01:12 56 L 26 H 90 09/26/25 01:01 36.8 C 09/26/25 01:00 114/48 L 09/26/25 01:00 114/48 L 09/26/25 01:00 114/48 L 09/26/25 01:00 114/48 L 09/26/25 01:00 57 L 22 88 L 09/26/25 00:51 58 L 26 H 89 L 09/26/25 00:42 54 L 2 L 92 09/26/25 00:31 93/38 L 09/26/25 00:31 93/38 L 09/26/25 00:31 93/38 L 09/26/25 00:31 93/38 L 09/26/25 00:31 93/38 L 09/26/25 00:30 54 L 1 L 82 L 09/26/25 00:21 56 L 20 88 L 09/26/25 00:12 54 L 4 L 88 L 09/26/25 00:01 95/41 L 09/26/25 00:01 95/41 L 09/26/25 00:01 95/41 L 09/26/25 00:01 95/41 L 09/26/25 00:00 56 L 21 79 L 09/25/25 23:51 57 L 23 92 09/25/25 23:42 60 26 H 91 09/25/25 23:31 114/48 L 09/25/25 23:31 114/48 L 09/25/25 23:31 114/48 L 09/25/25 23:31 114/48 L 09/25/25 23:31 114/48 L 09/25/25 23:30 54 L 22 91 09/25/25 23:21 58 L 14 92 09/25/25 23:12 56 L 9 L 91 09/25/25 23:04 103/52 L 09/25/25 23:04 103/52 L 09/25/25 23:04 103/52 L 09/25/25 23:04 103/52 L 09/25/25 23:04 103/52 L 09/25/25 23:03 54 L 25 H 91 09/25/25 23:00 65 27 H 09/25/25 22:51 63 23 93 09/25/25 22:48 36.6 C 09/25/25 22:42 55 L 20 93 09/25/25 22:32 113/49 L 09/25/25 22:32 113/49 L 09/25/25 22:32 113/49 L 09/25/25 22:32 113/49 L 09/25/25 22:32 113/49 L 09/25/25 22:30 53 L 19 92 09/25/25 22:21 59 L 23 94 09/25/25 22:12 54 L 13 94 09/25/25 22:01 105/44 L 09/25/25 22:01 105/44 L 09/25/25 22:01 105/44 L 09/25/25 22:01 105/44 L 09/25/25 22:01 105/44 L 09/25/25 22:00 57 L 22 09/25/25 21:51 61 25 H 94 09/25/25 21:42 57 L 23 93 09/25/25 21:31 108/51 L 09/25/25 21:31 108/51 L 09/25/25 21:31 108/51 L 09/25/25 21:31 108/51 L 09/25/25 21:31 108/51 L 09/25/25 21:30 54 L 23 90 09/25/25 21:21 56 L 22 92 09/25/25 21:12 55 L 22 92 09/25/25 21:01 115/49 L 09/25/25 21:01 115/49 L 09/25/25 21:01 115/49 L 09/25/25 21:01 115/49 L 09/25/25 21:01 115/49 L 09/25/25 21:00 69 22 09/25/25 20:51 54 L 19 89 L 09/25/25 20:42 54 L 20 92 09/25/25 20:31 118/50 L 09/25/25 20:31 118/50 L 09/25/25 20:31 118/50 L 09/25/25 20:31 118/50 L 09/25/25 20:31 118/50 L 09/25/25 20:30 51 L 22 88 L 09/25/25 20:21 56 L 23 92 09/25/25 20:12 65 19 93 09/25/25 20:00 52 L 18 91 09/25/25 20:00 110/45 L 09/25/25 20:00 110/45 L 09/25/25 20:00 110/45 L 09/25/25 20:00 110/45 L 09/25/25 20:00 High Flow Nasal Cannula 8 09/25/25 19:51 53 L 22 89 L 09/25/25 19:48 58 L 20 90 09/25/25 19:48 80/42 L 09/25/25 19:48 80/42 L Coding Level of Care Code 13642 CRITICAL CARE 1ST 30-74M Diagnoses Dysrhythmia I49.9 Shock R57.9 Hypoxia R09.02 Elevated troponin R79.89 Acute kidney injury superimposed on stage 3a chronic kidney disease N17.9; N18.31 Diverticulitis K57.92 Ileus K56.7 Acute hypoxic respiratory failure J96.01
[2025-09-26 08:39] LABS: Thyroid Stimulating Hormone 3.574 uIu/ml (0.300-4.500)
[2025-09-26] MEDS: POTASSIUM CHLORIDE 20 MEQ/15 ML UDC PO STA (08:50)
[2025-09-26] MEDS: MAGNESIUM SULFATE / D5W 1 GM/100 ML BAG IV SCH (08:51)
[2025-09-26] MEDS: CALCIUM GLUCONATE 1,000 MG/60 ML BAG IV SCH (08:51)
--- NOTE | 2025-09-26 10:19 | Electrocardiogram Report ---
Test Reason : Blood Pressure : */* mmHG Vent. Rate : 63 BPM Atrial Rate : 63 BPM P-R Int : 148 ms QRS Dur : 100 ms QT Int : 378 ms P-R-T Axes : 31 18 -16 degrees QTcB Int : 386 ms Sinus rhythm with frequent Premature ventricular complexes Nonspecific T wave abnormality Abnormal ECG When compared with ECG of 25-Sep-2025 07:35, Premature ventricular complexes are now Present Vent. rate has decreased by 70 bpm Confirmed by Kiel Yepez ([id number]) on 09/26/2025 10:18:33 AM Referred By: REFERRED SELF Confirmed By: Kiel Yepez
[2025-09-26] MEDS: PHENYLEPHRINE/NSS 100 MG/250 ML BAG IV SCH (10:31)
--- NOTE | 2025-09-26 10:32 | Cardiology Progress Note ---
Date of Service September 26, 2025 Assessment & Plan (1) Demand ischemia: (2) SVT (supraventricular tachycardia): (3) ANDRES (acute kidney injury): (4) Hypotension: (5) Paroxysmal atrial flutter: (6) ASCVD (arteriosclerotic cardiovascular disease): (7) Elevated troponin: (8) Septic shock: Plan 80-year-old male with metastatic malignancy with unknown primary (previously treated with pemetrexed and Keytruda) who developed nausea, vomiting, diarrhea, poor oral intake, and progressive weakness after initiation of Ramucirumab (Cyramza) and docetaxel (Taxotere) on September 17, 2025. Patient ultimately presented to the [facility] ER on 09/24/2025 hypoxic (84%), hypotensive (74/54), and tachycardic (150 bpm). Laboratory work with acute kidney injury (creatinine 3.25 mg/dL). CBC with pancytopenia, marked thrombocytopenia (40K). EKG revealed narrow complex tachycardia consistent with SVT/PAT, possible atrial flutter with diffuse STT wave depression. Patient asymptomatic in regards to tachypalpitations. High sensitivity troponin elevated (611.8 -> 679.6 -> 635.7 - > 535.6 pg/mL), representing demand ischemia in the setting of critical illness. Echocardiography with moderate reduction in LV systolic function (EF 40-45%) without regional wall motion abnormalities. Patient asymptomatic in regards to overt angina. Ongoing hypotension noted. Suspect adverse reactions to chemotherapy, cardiovascular toxicity, and hypovolemic shock. Continue pressor support with phenylephrine. Continue IV amiodarone. Marked thrombocytopenia precludes anticoagulation. Patient is still having loose watery stools which started post chemo IMP: Hypovolemic shock Post chemo sequelae ANDRES on CKD PAF with RVR Metastatic malignancy Pancytopenia - some improvement, however with persistent thrombocytopenia Abn Troponin - likely due to demand ischemia and not indicative of Type I OR Moderate LV systolic dysfunction Tachyarrhythmia and hypotension due to persistent underlying hypovolemic shock Patient continues to be hypotensive with paroxysmal tachyarrhythmias requiring vasopressors and IV amiodarone, Dig - likely due to persistent hypovolemic shock with ongoing loose stools post chemo would avoid using metoprolol or Cardizem while patient is on pressors as they may decrease BP and increase pressors requirement RECOMMENDATIONS: IVF -> continue maintenance fluids until volume and hemodynamic status have stabilized and pressors are off alongwith resolution of diarrhea, attaining eu volemic status avoid fluid boluses unless urgently/emergently indicated due to LV systolic dysfunction may use diuretics prn if indicated continue pressors keeping MAP > 65mmHg Hold off on all anti-HTN meds until off pressors and there is room for BP for them to be given Anticoagulation if no contraindication and when cleared by Hem-Onc ABX if indicated Hem-Onc consult correct and f/u electrolytes f/u renal function avoid hypovolemia keep patient euvolemic DVT prophylaxis strict I&Os Admission and Anticipated Discharge Date Admission Date: September 24, 2025 Subjective Patient on exam is lying in bed in NAD; no c/o cp, sob, palpitations, dizziness, LOC, abdominal pain continues to have watery diarrhea - 10-15 episodes yesterday and 2 since this AM; IVF were started yesterday; pt not on IVF now Patient continues to be hypotensive an with PSVT and PAF with RVR requiring vasopressors likely due to continued hypovolemia and intravascular fluid depletion Review of Systems Review of Systems: as per hpi Physical Exam Physical Exam: General: Resting comfortable, chronically ill appearing. Skin: Pallor HENT: Normocephalic. Atraumatic. Eyes: PER. Conjunctiva pink, sclera pale. Neck: No JVD Heart: Regular at 60 bpm. Soft systolic murmur. No rub. Lungs: Decreased. Diminished. Absent breath sounds at the left base. Scattered rhonchi. Abdomen: +BS. Soft. Nontender. No masses or organomegaly. Extremities: No edema. Limited neurological examination is without focal deficits. Pulses: radial=2/4, posterior tibial=1-2/4 on the left and 2/4 on the right Results & Data Vital Signs (Past 12 Hours) Vital Signs Vital Signs Temp 36.8 C 09/26/25 01:01 Pulse 58 L 09/26/25 06:30 Resp 27 H 09/26/25 06:30 BP 124/48 L 09/26/25 06:30 Pulse Ox 91 09/26/25 06:30 O2 Del Method High Flow Nasal Cannula 09/25/25 20:00 O2 Flow Rate 8 09/25/25 20:00 Intake & Output 12/24/25 12/25/25 12/25/25 18:59 06:59 18:59 Intake Total 1991.900 / 3559.821 1566.921 / 3559.821 629.574 / 629.574 Output Total 625 / 1175 550 / 1175 Balance 1367.900 / 2384.821 1016.921 / 2384.821 629.574 / 629.574 Weight 76.4 kg Intake: IV 1991.900 / 3559.821 1566.921 / 3559.821 629.574 / 629.574 Amiodarone / D5w 360 mg In 200 159.285 / 351.613 192.328 / 351.613 200 / 200 ml @ 0.5 MG/MIN 16.667 mls/hr IV .Q12H [facility] Rx#:[id number] Azithromycin 500 mg In 255 ml @ 255 / 255 127.5 mls/hr IV Q24H [facility] Rx#: [id number] Calcium Gluconate 1,000 mg In 120 / 120 60 / 60 60 ml @ 240 mls/hr IV Q15M [facility] Rx#:[id number] Lactated Ringer's 500 ml @ 999 500 / 500 mls/hr IV .Q31M [facility] Rx#: [id number] Magnesium Sulfate / D5w 1 gm In 44.167 / 44.167 100 ml @ 50 mls/hr IV Q2H [facility] Rx#:[id number] Phenylephrine/Nss 25 mg In 250 858.615 / 2133.208 1274.593 / 2133.208 225.407 / 225.407 ml @ 2.3 MCG/KG/MIN 105.432 mls /hr IV .Q2H23M [facility] Rx#:[id number] Piperacillin/Tazobactam 4.5 gm 100 / 200 100 / 200 100 / 100 In 100 ml @ 25 mls/hr IV Q12H [facility] Rx#:[id number] Oral 0 / 0 Output: Urine Amount (Catheter) 625 / 1175 550 / 1175 Coude 625 / 1175 550 / 1175 Temp Pulse Resp BP Pulse Ox 09/26/25 06:30 58 L 27 H 91 09/26/25 06:30 124/48 L 09/26/25 06:30 124/48 L 09/26/25 06:30 124/48 L 09/26/25 06:30 124/48 L 09/26/25 06:30 124/48 L 09/26/25 06:21 57 L 16 91 09/26/25 06:12 60 21 89 L 09/26/25 06:04 102/39 L 09/26/25 06:04 102/39 L 09/26/25 06:04 102/39 L 09/26/25 06:04 102/39 L 09/26/25 06:04 102/39 L 09/26/25 06:03 55 L 20 79 L 09/26/25 06:00 55 L 15 84 L 09/26/25 05:51 56 L 19 86 L 09/26/25 05:42 62 27 H 91 09/26/25 05:30 132 H 14 93 09/26/25 05:30 127/57 L 09/26/25 05:30 127/57 L 09/26/25 05:30 127/57 L 09/26/25 05:30 127/57 L 09/26/25 05:30 127/57 L 09/26/25 05:21 55 L 15 90 09/26/25 05:12 66 26 H 92 09/26/25 05:01 103/48 L 09/26/25 05:01 103/48 L 09/26/25 05:01 103/48 L 09/26/25 05:01 103/48 L 09/26/25 05:01 103/48 L 09/26/25 05:00 54 L 21 87 L 09/26/25 04:51 54 L 17 89 L 09/26/25 04:42 55 L 23 86 L 09/26/25 04:31 104/37 L 09/26/25 04:31 104/37 L 09/26/25 04:31 104/37 L 09/26/25 04:31 104/37 L 09/26/25 04:31 104/37 L 09/26/25 04:30 58 L 23 87 L 09/26/25 04:21 56 L 16 76 L 09/26/25 04:12 54 L 31 H 87 L 09/26/25 04:01 110/49 L 09/26/25 04:01 110/49 L 09/26/25 04:01 110/49 L 09/26/25 04:01 110/49 L 09/26/25 04:00 57 L 18 85 L 09/26/25 03:51 60 29 H 90 09/26/25 03:42 55 L 28 H 90 09/26/25 03:31 111/50 L 09/26/25 03:31 111/50 L 09/26/25 03:31 111/50 L 09/26/25 03:31 111/50 L 09/26/25 03:31 111/50 L 09/26/25 03:30 60 27 H 87 L 09/26/25 03:21 55 L 23 93 09/26/25 03:12 65 9 L 93 09/26/25 03:01 120/51 L 09/26/25 03:01 120/51 L 09/26/25 03:01 120/51 L 09/26/25 03:01 120/51 L 09/26/25 03:01 120/51 L 09/26/25 03:00 55 L 5 L 93 09/26/25 02:51 54 L 33 H 92 09/26/25 02:42 55 L 29 H 92 09/26/25 02:31 115/47 L 09/26/25 02:31 115/47 L 09/26/25 02:31 115/47 L 09/26/25 02:31 115/47 L 09/26/25 02:31 115/47 L 09/26/25 02:30 55 L 24 91 09/26/25 02:21 59 L 20 92 09/26/25 02:12 59 L 28 H 91 09/26/25 02:02 98/60 L 09/26/25 02:02 98/60 L 09/26/25 02:02 98/60 L 09/26/25 02:02 98/60 L 09/26/25 02:02 98/60 L 09/26/25 02:00 56 L 24 09/26/25 01:51 56 L 4 L 90 09/26/25 01:42 50 L 7 L 89 L 09/26/25 01:31 118/32 L 09/26/25 01:31 118/32 L 09/26/25 01:31 118/32 L 09/26/25 01:31 118/32 L 09/26/25 01:30 68 28 H 09/26/25 01:21 60 27 H 92 09/26/25 01:12 56 L 26 H 90 09/26/25 01:01 36.8 C 09/26/25 01:00 114/48 L 09/26/25 01:00 114/48 L 09/26/25 01:00 114/48 L 09/26/25 01:00 114/48 L 09/26/25 01:00 57 L 22 88 L 09/26/25 00:51 58 L 26 H 89 L 09/26/25 00:42 54 L 2 L 92 09/26/25 00:31 93/38 L 09/26/25 00:31 93/38 L 09/26/25 00:31 93/38 L 09/26/25 00:31 93/38 L 09/26/25 00:31 93/38 L 09/26/25 00:30 54 L 1 L 82 L 09/26/25 00:21 56 L 20 88 L 09/26/25 00:12 54 L 4 L 88 L 09/26/25 00:01 95/41 L 09/26/25 00:01 95/41 L 09/26/25 00:01 95/41 L 09/26/25 00:01 95/41 L 09/26/25 00:00 56 L 21 79 L 09/25/25 23:51 57 L 23 92 09/25/25 23:42 60 26 H 91 09/25/25 23:31 114/48 L 09/25/25 23:31 114/48 L 09/25/25 23:31 114/48 L 09/25/25 23:31 114/48 L 09/25/25 23:31 114/48 L 09/25/25 23:30 54 L 22 91 09/25/25 23:21 58 L 14 92 09/25/25 23:12 56 L 9 L 91 09/25/25 23:04 103/52 L 09/25/25 23:04 103/52 L 09/25/25 23:04 103/52 L 09/25/25 23:04 103/52 L 09/25/25 23:04 103/52 L 09/25/25 23:03 54 L 25 H 91 09/25/25 23:00 65 27 H 09/25/25 22:51 63 23 93 09/25/25 22:48 36.6 C 09/25/25 22:42 55 L 20 93 09/25/25 22:32 113/49 L 09/25/25 22:32 113/49 L 09/25/25 22:32 113/49 L 09/25/25 22:32 113/49 L 09/25/25 22:32 113/49 L 09/25/25 22:30 53 L 19 92 09/25/25 22:21 59 L 23 94 09/25/25 22:12 54 L 13 94 Laboratory Results Laboratory Results WBC 9.69 K/ul (4.8-10.8) 09/26/25 04:55 RBC 2.53 M/uL (4.70-6.10) L 09/26/25 04:55 Hgb 9.4 g/dL (14.0-18.0) L 09/26/25 04:55 POC Hgb 9.2 g/dl (14.0-18.0) L 09/24/25 14:54 Hct 28.7 % (42.0-52.0) L 09/26/25 04:55 POC Hct 27 % (42-52) L 09/24/25 14:54 MCV 113.4 fL (80.0-100.0) H 09/26/25 04:55 MCH 37.2 pg (25.0-34.0) H 09/26/25 04:55 MCHC 32.8 g/dL (32.0-36.0) 09/26/25 04:55 RDW Std Deviation 62.9 fL (36.4-46.3) H 09/26/25 04:55 RDW Coeff of Ele 15.0 % (11.5-14.5) H 09/26/25 04:55 Plt Count 51 K/uL (130-400) L 09/26/25 04:55 MPV 14.6 fL (9.4-12.4) H 09/26/25 04:55 Immature Gran % (Auto) 1.2 % 09/26/25 04:55 Neut % (Auto) 85.0 % 09/26/25 04:55 Lymph % (Auto) 6.5 % 09/26/25 04:55 [place] % (Auto) 6.7 % 09/26/25 04:55 Eos % (Auto) 0.1 % 09/26/25 04:55 Baso % (Auto) 0.5 % 09/26/25 04:55 Neut # (Auto) 8.23 K/uL (1.40-6.50) H 09/26/25 04:55 Lymph # (Auto) 0.63 K/uL (1.20-3.40) L 09/26/25 04:55 [place] # (Auto) 0.65 K/uL (0.11-0.59) H 09/26/25 04:55 Eos # (Auto) 0.01 K/uL (0.00-0.50) 09/26/25 04:55 Baso # (Auto) 0.05 K/uL (0.00-0.20) 09/26/25 04:55 Immature Gran # (Auto) 0.12 K/uL (0.01-0.20) 09/26/25 04:55 Absolute Nucleated RBC 0.03 K/uL (0.00-0.12) 09/26/25 04:55 Nucleated RBC % (auto) 0.3 % 09/26/25 04:55 Toxic Granulation 2+ 09/26/25 04:55 Toxic Vacuolation 1+ 09/26/25 04:55 Dohle Bodies 2+ 09/25/25 04:39 Polychromasia 1+ 09/26/25 04:55 Macrocytosis Present 09/26/25 04:55 Ovalocytes 1+ 09/24/25 14:51 Echinocytes 3+ 09/26/25 04:55 Acanthocytes (Spur) 1+ 09/26/25 04:55 VBG pH 7.34 (7.36-7.41) L 09/24/25 15:02 VBG pCO2 49 mmHg (38-50) 09/24/25 15:02 VBG pO2 24 mmHg 09/24/25 15:02 VBG HCO3 26 mmol/L 09/24/25 15:02 VBG O2 Saturation < 60.0 % 09/24/25 15:02 VBG Base Excess 0.3 mEq/L 09/24/25 15:02 POC Sodium 142 mmol/L (135-144) 09/24/25 14:54 Sodium 144 mmol/L (136-145) 09/26/25 04:55 POC Potassium 5.0 mmol/L (3.3-5.0) 09/24/25 14:54 Potassium 3.3 mmol/L (3.5-5.1) L 09/26/25 04:55 POC Chloride 106 mmol/L (101-112) 09/24/25 14:54 Chloride 114 mmol/L (98-107) H 09/26/25 04:55 Carbon Dioxide 22 mmol/L (21-32) 09/26/25 04:55 POC Total CO2 24 mmol/L (24-31) 09/24/25 14:54 Anion Gap 8 (3-11) 09/26/25 04:55 POC Anion Gap 18.0 mmol/L (16-25) 09/24/25 14:54 POC BUN 45 mg/dl (7-18) H 09/24/25 14:54 BUN 42 mg/dl (6-23) H 09/26/25 04:55 Creatinine 2.42 mg/dl (0.6-1.4) H D 09/26/25 04:55 POC Creatinine 3.3 mg/dl (0.6-1.3) H 09/24/25 14:54 Est Cr Clr Drug Dosing 23.1 ml/min 09/26/25 04:55 eGFR 26.51 09/26/25 04:55 BUN/Creatinine Ratio 17.4 (10-20) 09/26/25 04:55 Glucose 96 mg/dl (70-99(Fasting)) 09/26/25 04:55 POC Glucose 102 mg/dl (70-99) H 09/26/25 07:22 POC Glucose (other) 104 mg/dl (70-99) H 09/25/25 18:26 Estimat Average Glucose 123 mg/dl 09/25/25 04:39 Hemoglobin A1c 5.9 % (4.5-5.6) H 09/25/25 04:39 Lactate 1.1 mmol/L (0.4-2.0) 09/25/25 08:40 Calcium 7.0 mg/dl (8.6-10.3) L 09/26/25 04:55 POC Ioniz Calcium Anthony 1.06 mmol/l (1.12-1.32) L 09/24/25 14:54 Ionized Calcium 1.05 mmol/L (1.12-1.32) L 09/26/25 04:55 Phosphorus 3.1 mg/dl (2.5-4.9) 09/26/25 04:55 Magnesium 1.9 mg/dl (1.7-2.4) 09/26/25 04:55 Total Bilirubin 0.7 mg/dl (0.2-1.0) 09/25/25 04:39 Direct Bilirubin 0.5 mg/dl (0-0.2) H 09/24/25 14:51 AST 47 U/L (13-39) H 09/25/25 04:39 ALT 34 U/L (7-52) 09/25/25 04:39 Alkaline Phosphatase 86 U/L (34-104) 09/25/25 04:39 Troponin I High Sens 361.7 pg/ml (0-20) H* D 09/25/25 10:54 B-Natriuretic Peptide 1006 pg/ml (0-100) H 09/24/25 14:51 Total Protein 4.9 gm/dl (6.0-8.3) L 09/25/25 04:39 Albumin 2.5 gm/dl (3.4-5.0) L 09/25/25 04:39 Globulin 2.4 gm/dl (2.5-4.0) L 09/25/25 04:39 Albumin/Globulin Ratio 1.0 (0.9-2) 09/25/25 04:39 25-OH Vitamin D Total 60.9 ng/ml (30-100) 09/24/25 19:22 Procalcitonin 1.13 ng/ml (0-0.5) H 09/25/25 08:40 TSH 3.574 uIu/ml (0.300-4.500) 09/26/25 04:55 Random Cortisol Cancelled 09/26/25 04:44 Urine Color Yellow 09/25/25 10:40 Urine Appearance Clear (Clear) 09/25/25 10:40 Urine pH 5.5 (4.5-7.5) 09/25/25 10:40 Ur Specific [place] 1.017 (1.000-1.030) 09/25/25 10:40 Urine Protein 1+ (Negative) H 09/25/25 10:40 Urine Glucose (UA) Negative (Negative) 09/25/25 10:40 Urine Ketones Negative (Negative) 09/25/25 10:40 Urine Blood Trace (Negative) H 09/25/25 10:40 Urine Nitrite Negative (Negative) 09/25/25 10:40 Urine Bilirubin Negative (Negative) 09/25/25 10:40 Urine Urobilinogen Negative (Negative) 09/25/25 10:40 Ur Leukocyte Esterase Negative (Negative) 09/25/25 10:40 Urine WBC (Auto) 0-5 /hpf (0-5) 09/25/25 10:40 Urine RBC (Auto) 0-2 /hpf (0-2) 09/25/25 10:40 U Hyaline Cast (Auto) 3-5 /lpf (0-2) H 09/25/25 10:40 U Epithel Cells (Auto) 6-10 /hpf (0-2) H 09/25/25 10:40 Urine Bacteria (Auto) None Seen (None Seen) 09/25/25 10:40 Hyaline Casts Present /lpf (None Presnt) A 09/25/25 03:56 Granular Casts Present /lpf (None Prsent) A 09/25/25 10:40 Urine Comment 09/25/25 03:56 Nasal Screen MRSA (PCR) Negative (Negative) 09/25/25 Unknown Adenovirus (PCR) Not Detected (NotDetected) 09/24/25 15:02 B. pertussis DNA (PCR) Not Detected (NotDetected) 09/24/25 15:02 B.parapertussis DNA PCR Not Detected (NotDetected) 09/24/25 15:02 C. pneumoniae DNA (PCR) Not Detected (NotDetected) 09/24/25 15:02 Coronavirus OC43 (PCR) Not Detected (NotDetected) 09/24/25 15:02 Coronavirus HKU1 (PCR) Not Detected (NotDetected) 09/24/25 15:02 Coronavirus 229E (PCR) Not Detected (NotDetected) 09/24/25 15:02 SARS-CoV-2 (PCR) Not Detected (NotDetected) 09/24/25 15:02 Coronavirus NL63 (PCR) Not Detected (NotDetected) 09/24/25 15:02 Human Metapneumovir PCR Not Detected (NotDetected) 09/24/25 15:02 Influenza Type A (PCR) Not Detected (NotDetected) 09/24/25 15:02 Influenza Type B (PCR) Not Detected (NotDetected) 09/24/25 15:02 M. pneumoniae (PCR) Not Detected (NotDetected) 09/24/25 15:02 Parainfluenza 1 (PCR) Not Detected (NotDetected) 09/24/25 15:02 Parainfluenza 2 (PCR) Not Detected (NotDetected) 09/24/25 15:02 Parainfluenza 3 (PCR) Not Detected (NotDetected) 09/24/25 15:02 Parainfluenza 4 (PCR) Not Detected (NotDetected) 09/24/25 15:02 RSV (PCR) Not Detected (NotDetected) 09/24/25 15:02 Entero/Rhino (PCR) Not Detected (NotDetected) 09/24/25 15:02 Impressions Chest X-Ray 09/24/25 14:44 XR chest 1V portable CLINICAL HISTORY: Sepsis. COMPARISON STUDY: Chest CT March 06, 2022. Chest radiograph August 18, 2025 FINDINGS: Right internal jugular [id number] remains in place. There is no pneumothorax. A small to moderate left pleural effusion is noted. Cardiomegaly is again noted. Interstitial thickening is progressed. There are patchy bibasilar opacities. IMPRESSION: 1. Cardiomegaly with progression of interstitial pulmonary edema. 2. Patchy bibasilar opacities which could represent pneumonia or atelectasis. Radiographic follow-up is recommended. 2. Small to moderate left pleural effusion. ACT 112: Negative or not required by law. Electronically signed by: Alli Espinoza M.D. 09/24/2025 3:01 PM Abdomen/Pelvis CT 09/24/25 15:29 EXAM: CT Abdomen and Pelvis Without Intravenous Contrast INDICATION: Vomiting and diarrhea TECHNIQUE: Axial computed tomography images of the abdomen and pelvis without intravenous contrast. Sagittal and coronal reformatted images were created and reviewed. This CT exam was performed using one or more of the following dose reduction techniques: automated exposure control, adjustment of the mA and/or kV according to patient size, and/or use of iterative reconstruction technique. COMPARISON: 02/03/2023 FINDINGS: Limitations: None. Lung bases: There is consolidation in the dependent lower lobes left greater than right. Pleural space: There are small layering bilateral pleural effusions. Heart: Cardiomegaly. Mediastinum: No abnormality noted. ABDOMEN: Liver: Lack of intravenous contrast limits detection of some masses. No abnormality noted. Gallbladder and bile ducts: No calcified stones or surrounding fluid. No ductal dilation. Pancreas: No pancreatic mass, calcification, inflammation or ductal dilation noted. Spleen: No acute abnormality noted. Adrenals: No acute abnormality noted. Kidneys and ureters: Stable bilateral renal cysts most of which clearly appear benign. Others are hyperdense and unchanged. Stomach and bowel: The stomach is collapsed and cannot be optimally assessed. Multiple small and large bowel loops are mildly dilated with fluid and air. Left colonic diverticula noted. Mild thickening of the lateral conal fascia identified which may reflect mild adjacent diverticulitis. No obstructing point. PELVIS: Appendix: Well seen and appears normal. Bladder: Appears normal for the degree of filling. No stones or inflammation. No large mass. Masses may not be detected in the absence of opacification. Reproductive: No abnormalities noted. ABDOMEN and PELVIS: Intraperitoneal space: No free air. No significant fluid collection. Bones/joints: No acute changes. Posterior L4-S1 fusion hardware well-seated and intact. Diffuse degenerative changes. Soft tissues: No acute abnormality noted. Vasculature: Stable atherosclerosis of the aorta with mild aneurysm of the infrarenal segment to 3.3 cm. No hemorrhage. Lymph nodes: No pathologically enlarged lymph nodes. IMPRESSION: 1. Ileus with findings suggestive of mild descending colonic acute diverticulitis. 2. Small layering pleural effusions and compressive bilateral lower lobe consolidation. 3. Stable 3.3 cm infrarenal abdominal aortic aneurysm without hemorrhage. ACR White Paper guidelines (Constance, et al. JACR 2013; 10(10):789-94) suggest abdomen/pelvis CT or MR imaging follow-up in 3 years. ACT 112: N/A Electronically signed by Michelle Fields 09-24-2025 5:21 PM Diagnostic Findings Cardiac Enzymes 09/25/25 Range/Units 10:54 Troponin I High Sens 361.7 H* D (0-20) pg/ml CBC 09/26/25 Range/Units 04:55 WBC 9.69 (4.8-10.8) K/ul RBC 2.53 L (4.70-6.10) M/uL Hgb 9.4 L (14.0-18.0) g/dL Hct 28.7 L (42.0-52.0) % Plt Count 51 L (130-400) K/uL Neut # (Auto) 8.23 H (1.40-6.50) K/uL Lymph # (Auto) 0.63 L (1.20-3.40) K/uL [place] # (Auto) 0.65 H (0.11-0.59) K/uL Eos # (Auto) 0.01 (0.00-0.50) K/uL Baso # (Auto) 0.05 (0.00-0.20) K/uL Comprehensive Metabolic Panel 09/26/25 Range/Units 04:55 Sodium 144 (136-145) mmol/L Potassium 3.3 L (3.5-5.1) mmol/L Chloride 114 H (98-107) mmol/L Carbon Dioxide 22 (21-32) mmol/L BUN 42 H (6-23) mg/dl Creatinine 2.42 H D (0.6-1.4) mg/dl Glucose 96 (70-99(Fasting)) mg/dl Calcium 7.0 L (8.6-10.3) mg/dl Intake and Output 09/25/25 09/26/25 09/26/25 22:59 06:59 14:59 Intake Total 1448.360 / 3559.821 1024.593 / 3559.821 629.574 / 629.574 Output Total 425 / 1175 550 / 1175 Balance 1023.360 / 2384.821 474.593 / 2384.821 629.574 / 629.574 Intake: IV 1448.360 / 3559.821 1024.593 / 3559.821 629.574 / 629.574 Amiodarone / D5w 360 mg In 200 192.328 / 192.328 200 / 200 ml @ 0.5 MG/MIN 16.667 mls/hr IV .Q12H [facility] Rx#:[id number] Calcium Gluconate 1,000 mg In 60 / 60 60 ml @ 240 mls/hr IV Q15M [facility] Rx#:[id number] Lactated Ringer's 500 ml @ 999 500 / 500 mls/hr IV .Q31M [facility] Rx#: [id number] Magnesium Sulfate / D5w 1 gm In 44.167 / 44.167 100 ml @ 50 mls/hr IV Q2H [facility] Rx#:[id number] Phenylephrine/Nss 25 mg In 250 656.032 / 2133.208 1024.593 / 2133.208 225.407 / 225.407 ml @ 2.3 MCG/KG/MIN 105.432 mls /hr IV .Q2H23M [facility] Rx#:[id number] Piperacillin/Tazobactam 4.5 gm 100 / 200 100 / 100 In 100 ml @ 25 mls/hr IV Q12H [facility] Rx#:[id number] Output: Urine Amount (Catheter) 425 / 1175 550 / 1175 Coude 425 / 1175 550 / 1175 Medications Administered Home Medications Medication Instructions Recorded Confirmed Last Taken atorvastatin 80 mg tablet 80 mg PO DAILY 04/22/20 09/24/25 08/15/25 cholecalciferol (vitamin D3) 25 1,000 unit PO QAM 04/22/20 09/24/25 08/15/25 mcg (1,000 unit) capsule (Vitamin D3) epinephrine 0.3 mg/0.3 mL 0.3 mg IM DIRECTED PRN Allergic 04/22/20 09/24/25 Unknown injection, auto-injector Reaction nitroglycerin 0.4 mg sublingual 0.4 mg sublingual DIRECTED PRN 04/22/20 09/24/25 Unknown tablet (Nitrostat) Chest Pain tamsulosin 0.4 mg capsule 0.4 mg PO QAM 04/22/20 09/24/25 08/15/25 lisinopril 2.5 mg tablet 2.5 mg PO QAM 02/03/23 09/24/25 08/15/25 albuterol sulfate 90 mcg/actuation 2 inh inhalation Q4H PRN shortness 05/18/25 1 11/25/24 05/17/25 aerosol inhaler of breath or wheezing budesonide 160 mcg-glycopyr 9 2 inh inhalation BID 05/18/25 09/24/25 08/15/25 mcg-formot 4.8 mcg/actuation HFA inhaler (Breztri Aerosphere) folic acid 1 mg tablet 1 mg PO QAM 05/18/25 09/24/25 08/15/25 prochlorperazine maleate 10 mg 10 mg PO Q6H PRN Nausea And 05/18/25 09/24/25 Unknown tablet Vomiting trazodone 50 mg tablet 50 mg PO HS 05/18/25 09/24/25 08/14/25 pantoprazole 40 mg tablet,delayed 40 mg PO BID #60 tabs 05/21/25 09/24/25 08/15/25 release B-complex with vitamin C 1 cap PO QAM 06/21/25 09/24/25 08/15/25 aspirin 81 mg tablet,delayed 81 mg PO QAM 06/21/25 09/24/25 08/15/25 release dexamethasone 4 mg tablet 8 mg PO DIRECTED PRN DAYS 2,3,4 06/21/25 09/24/25 06/26/25 OF CHEMO lidocaine-prilocaine 2.5 %-2.5 % 1 applic topical DIRECTED PRN 06/21/25 09/24/25 Unknown topical cream ACCESSING MEDIPORT loperamide 1 mg/7.5 mL oral liquid 0.5 mg PO DAILY PRN Diarrhea 06/21/25 09/24/25 Unknown (Imodium A-D) loratadine 10 mg tablet (Claritin) 10 mg PO DAILY PRN START DAY OF 06/21/25 09/24/25 Unknown CHEMO X 5 DAYS. metoprolol succinate 50 mg 50 mg PO BID 06/21/25 09/24/25 08/15/25 tablet,extended release 24 hr ondansetron HCl 8 mg tablet 8 mg PO Q8H PRN NAUSEA/VOMITING 06/21/25 09/24/25 Unknown oxycodone 5 mg tablet 5 mg PO Q4H PRN pain #10 tabs 06/23/25 09/24/25 Unknown L.acidop,casei,lactis,rham-B.lact,zac 1 cap PO QAM 08/15/25 09/24/25 08/15/25 625 mg (10 billion cell) capsule (Advanced Probiotic) Active Medications Generic Name Dose Route Start Last Admin Trade Name Freq PRN Reason Stop Dose Admin Atorvastatin Calcium 80 mg 09/25/25 09:00 09/26/25 09:30 Atorvastatin 40 Mg Tab PO 10/25/25 08:59 80 mg DAILY CHANELLE Administration Fluticasone Furoate 1 puffs 09/24/25 21:45 09/26/25 09:28 Fluticasone Furoate 200mcg 14 Puffs/Inhaler INH 10/24/25 21:44 1 puffs DAILY CHANELLE Administration Folic Acid 1 mg 09/25/25 09:00 09/26/25 09:30 Folic Acid 1 Mg Tab PO 10/25/25 08:59 1 mg QAM CHANELLE Administration Piperacillin Sod/Tazobactam Sod 4.5 gm in 100 mls @ 25 mls/hr 09/25/25 04:30 09/26/25 08:19 Zosyn IV 09/29/25 23:59 Infused Q12H CHANELLE Infusion Protocol Amiodarone HCl/Dextrose 360 mg in 200 mls @ 16.667 mls/hr 09/25/25 09:45 09/26/25 08:50 Nexterone / D5w IV 10/25/25 09:44 0.5 mg/min .Q12H CHANELLE 16.7 mls/hr Administration 0.5 MG/MIN Azithromycin 500 mg in 255 mls @ 127.5 mls/hr 09/25/25 09:00 09/26/25 08:51 Zithromax IV 09/30/25 08:59 127.5 mls/hr Q24H CHANELLE Administration Magnesium Sulfate/Dextrose 1 gm in 100 mls @ 50 mls/hr 09/26/25 08:00 09/26/25 09:44 Magnesium Sulfate / D5w IV 09/26/25 17:59 50 mls/hr Q2H CHANELLE Administration Lactobacillus Acidophilus 1,250 mg 09/25/25 09:00 09/26/25 09:29 Advanced Probiotic 625 Mg Capsule PO 10/25/25 08:59 1,250 mg QAM CHANELLE Administration Metoprolol Succinate 50 mg 09/24/25 21:45 09/24/25 22:23 Metoprolol Succ 50mg Ext Rel Tab PO 10/24/25 21:44 50 mg BID CHANELLE Administration Pantoprazole Sodium 40 mg 09/24/25 21:00 09/26/25 09:29 Pantoprazole 40 Mg Tab PO 10/24/25 20:59 40 mg BID CHANELLE Administration Tamsulosin HCl 0.4 mg 09/25/25 09:00 09/26/25 09:29 Tamsulosin Hcl 0.4 Mg Cap PO 10/25/25 08:59 0.4 mg QAM CHANELLE Administration Umeclidinium/Vilanterol 1 puffs 09/24/25 21:45 09/26/25 09:29 Umeclidinium/Vilanterol 62.5/25mcg 7 Puffs/Inhaler INH 10/24/25 21:44 1 puffs DAILY CHANELLE Administration Vitamin B Complex 1 tab 09/25/25 09:00 09/26/25 09:29 Vitamin B Complex Tab PO 10/25/25 08:59 1 tab QAM CHANELLE Administration Vitamin D 25 mcg 09/25/25 09:00 09/26/25 09:30 Cholecalciferol 25 Mcg (1000 Units) Tab PO 10/25/25 08:59 25 mcg QAM CHANELLE Administration PG Care Time/CCT Total # of Minutes Spent Total Time Spent with Patient: Total time spent is greater than 50% in coordination of care (as documented) at patient's floor/unit and/or counseling patient: Coding Level of Care Code 79855 SUB INP/OBS CARE 3/50MIN Diagnoses Demand ischemia I24.89 SVT (supraventricular tachycardia) I47.10 ANDRES (acute kidney injury) N17.9 Hypotension I95.9 Paroxysmal atrial flutter I48.92 ASCVD (arteriosclerotic cardiovascular disease) I25.10 Elevated troponin R79.89 Septic shock A41.9; R65.21
[2025-09-26 10:53] LABS: Cdiff Toxin B Gene (2yr or >) Negative Cdiff Gene (Neg)
[2025-09-26 11:27] LABS: Adenovirus F 40/41 PCR Not Detected (NotDetected); Campylobacter PCR Not Detected (NotDetected); Enteroaggregative E.coli(EAEC) Not Detected (NotDetected); Shiga-like Toxin E.coli (STEC) Not Detected (NotDetected); Vibrio species PCR Not Detected (NotDetected)
--- NOTE | 2025-09-26 12:28 | XRay Report ---
EXAM: Radiograph of the Chest 1 View INDICATION: Shortness of breath TECHNIQUE: Frontal view of the chest. COMPARISON: 09/24/2025 FINDINGS: Lungs and pleural spaces: Significant increase in bilateral airspace infiltrates left greater than right, pleural effusions and vascular congestion. No pneumothorax. Heart: Stable enlarged shadow. Mediastinum: Normal contour. Bones/joints: No fracture, erosion or dislocation. Soft tissues: No abnormality noted. No radiopaque foreign body noted. Tubes, lines and devices: Right internal jugular central venous port catheter tip unchanged approximately 3 cm distal to the cavoatrial junction. Upper abdomen: The stomach is mildly distended with air. IMPRESSION: 1. Significant increase in bilateral airspace infiltrates left greater than right, pleural effusions and vascular congestion. 2. The stomach is mildly distended with air. ACT 112: N/A Electronically signed by Michelle Fields 09-26-2025 12:28 PM
[2025-09-26] MEDS: LACTATED RINGER'S 1,000 ML IV SCH (13:08)
[2025-09-26] MEDS: PIPERACILLIN/TAZOBACTAM 4.5 GM/100 ML BAG IV SCH (13:20)
--- NOTE | 2025-09-26 16:29 | Hospitalist Progress Note ---
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 Shock Multifactorial: Septic from Pneumonia, Diverticulitis; Hypovolemic from Diarrhea; Cardiogenic from systolic CHF blood culture: negative so far remains on Phenylephrine continue IV Zosyn + Azithro continue IV fluids Echocardiogram was performed. Moderately reduced systolic function with an EF of 40 to 45% and global hypokinesis. Grade 2 diastolic dysfunction. Normal RV size and function. Mild aortic stenosis, mild to moderate pulmonic regurg, mild MR and TR. Acute hypoxic respiratory failure Interstitial pulmonary edema, small to moderate L pleural effusion seen on CXR Small layering pleural effusions and compressive bilateral lower lobe consolidation seen on CTAP Acute on chronic HFpEF Resp BioFire negative. Requiring 8L OxyMask in ED, maintaining sats in the upper 90s. BNP 1006 however pt is hypotensive and appears dry on exam, s/p 1.5L IVF in the ED. Continue IVF, update TTE as per below. Prior TTE last month: EF 55%, moderately dilated LA, moderate MR, mild TR. Wean O2 as tolerated. Does have nonproductive cough/congestion and CXR reads patchy bibasilar opacities, possible PNA. Covering with IV Zosyn for now, as per below. Pulm toileting as able. May need to consider pulm consult regarding b/l effusions. 09/26 on 4 L nasal cannula continue IV Abx Lasix held due to hypotension Atrial Fibrillation likely secondary to above on Amiodarone N/V/D Ileus with findings suggestive of mild descending colonic acute diverticulitis on CTAP Maintain NPO status, continue IVF and PRN electrolyte repletion. S/p IV Zithromax, Rocephin and Flagyl in ED. Appreciate gen surgery consult. Empiric ABX coverage with IV Zosyn for now. Check stool PCR, C. diff studies: negative ANDRES superimposed on CKD stage IIIa Cr previously 1.8 as of 08/19/25, appears baseline prior to that was around 1- 1.2 as per records. Cr 3.25 on presentation today. Suspect related to volume depletion ISO above, IVF onboard. crea improving to 2.4 Pancytopenia Metastatic poorly-differentiated carcinoma with unknown primary, most likely origin thought pulmonary F/w [facility] oncology, Dr. Everett. Diagnosed in 2023. PET scan done on 04/23/24 which revealed metabolically active pleural-based lung nodules suspicious for metastases and metabolically active prevascular and left suprahilar lymphadenopathy. Completed 6 cycles of combination of pemetrexed plus carboplatin Keytruda with overall good tolerance. Follow-up PET scan done after 4 cycles of chemotherapy revealed good response. Was on maintenance treatment including combination of pemetrexed and Keytruda. Follow-up PET scan done on 08/07/25 revealed disease progression. Now on combination Docetaxel and Ramucirumab; last received chemotherapy on 09/17/25. Continue PRN oxy IR for cancer-related pain. Neutropenic precautions, fall precautions in light of thrombocytopenia. 09/26 WBC improving Hg stable Plt 40--> 51 monitor Chronic anemia: H/H appears stable compared to prior, continue to monitor. DMII with peripheral vascular disease: Hgb A1c 5.7% 1mo ago, SSI protocol while admitted with BSG checks ACHS. ASCVD: Continue ASA, statin therapy. COPD: Continue home inhaler. Infrarenal abdominal aortic aneurysm Appears stable on CTAP today, measuring 3.3cm. Recommend CTAP or MR imaging follow-up in 3yr as per ACR White Paper guidelines. HTN: Hold lisinopril for now given hypotension, resume as able/tolerated. PAF: Not on chemical AC per patient's preference. Continue BB for now. GERD: Continue PPI BID. BPH: Continue Flomax. Hypocalcemia: Check vit D level, continue to monitor. DVT Prophylaxis: SCDs/TEDs only for now in light of thrombocytopenia Code Status: FULL CODE - Discussed with pt at bedside in the ED. Disposition: Admit to PCU Admission and Anticipated Discharge Date Admission Date: September 24, 2025 Subjective seen resting in chair, comfortable on 4 L NC states he feels ok overall still feels weak no chest pain shortness of breath improving Review of Systems Review of Systems: all noted and negative except for above Physical Exam Physical Exam: General- oriented x 3, not in distress, speaks in sentences with no effort or accessory muscle use Eyes- anicteric Neck- no JVD Lungs- mild rales at the bases Heart- normal rate,irregularly irregular rhythm; no murmurs Abdomen- normal bowel sounds, nondistended, soft, nontender Extremities- no pretibial edema, no calf tenderness Neuro- alert, oriented x 3; no gross focal neurologic deficits Skin- warm & dry Results & Data Results & Data Vital Signs (Past 12 Hours) Vital Signs Pulse Resp BP BP Pulse Ox Pulse Ox Pulse Ox 09/26/25 15:24 114/58 L 09/26/25 15:00 90 09/26/25 14:46 120/54 L 09/26/25 10:32 74 L 09/26/25 06:30 58 L 27 H 91 09/26/25 06:30 124/48 L 09/26/25 06:30 124/48 L 09/26/25 06:30 124/48 L 09/26/25 06:30 124/48 L 09/26/25 06:30 124/48 L 09/26/25 06:21 57 L 16 91 09/26/25 06:12 60 21 89 L 09/26/25 06:04 102/39 L 09/26/25 06:04 102/39 L 09/26/25 06:04 102/39 L 09/26/25 06:04 102/39 L 09/26/25 06:04 102/39 L 09/26/25 06:03 55 L 20 79 L 09/26/25 06:00 55 L 15 84 L 09/26/25 05:51 56 L 19 86 L 09/26/25 05:42 62 27 H 91 09/26/25 05:30 132 H 14 93 09/26/25 05:30 127/57 L 09/26/25 05:30 127/57 L 09/26/25 05:30 127/57 L 09/26/25 05:30 127/57 L 09/26/25 05:30 127/57 L 09/26/25 05:21 55 L 15 90 09/26/25 05:12 66 26 H 92 09/26/25 05:01 103/48 L 09/26/25 05:01 103/48 L 09/26/25 05:01 103/48 L 09/26/25 05:01 103/48 L 09/26/25 05:01 103/48 L 09/26/25 05:00 54 L 21 87 L 09/26/25 04:51 54 L 17 89 L 09/26/25 04:42 55 L 23 86 L 09/26/25 04:31 104/37 L 09/26/25 04:31 104/37 L 09/26/25 04:31 104/37 L 09/26/25 04:31 104/37 L 09/26/25 04:31 104/37 L 09/26/25 04:30 58 L 23 87 L O2 Del Method O2 Flow Rate O2 Flow Rate 09/26/25 15:24 09/26/25 15:00 High Flow Nasal Cannula 4 09/26/25 14:46 09/26/25 10:32 0 09/26/25 06:30 09/26/25 06:30 09/26/25 06:30 09/26/25 06:30 09/26/25 06:30 09/26/25 06:30 09/26/25 06:21 09/26/25 06:12 09/26/25 06:04 09/26/25 06:04 09/26/25 06:04 09/26/25 06:04 09/26/25 06:04 09/26/25 06:03 09/26/25 06:00 09/26/25 05:51 09/26/25 05:42 09/26/25 05:30 09/26/25 05:30 09/26/25 05:30 09/26/25 05:30 09/26/25 05:30 09/26/25 05:30 09/26/25 05:21 09/26/25 05:12 09/26/25 05:01 09/26/25 05:01 09/26/25 05:01 09/26/25 05:01 09/26/25 05:01 09/26/25 05:00 09/26/25 04:51 09/26/25 04:42 09/26/25 04:31 09/26/25 04:31 09/26/25 04:31 09/26/25 04:31 09/26/25 04:31 09/26/25 04:30 all noted and reviewed including below
--- NOTE | 2025-09-26 19:17 | XRay Report ---
EXAM: Radiograph of the Chest 1 View INDICATION: Follow-up TECHNIQUE: Frontal view of the chest. COMPARISON: 09/24/2025 FINDINGS: Lungs and pleural spaces: Significant increase airspace consolidation in the left lung and increased small left pleural effusion. Stable airspace disease right lung. Stable generalized pulmonary vascular congestion. No pneumothorax. Heart: Stable enlarged shadow. Mediastinum: Normal contour. Bones/joints: No fracture, erosion or dislocation. Soft tissues: No abnormality noted. No radiopaque foreign body noted. Tubes, lines and devices: Right internal jugular central venous port tip proximal right atrium. Upper abdomen: No abnormality noted. IMPRESSION: Worsening left airspace disease and pleural effusion concerning for pneumonia. Component of mucous plugging is considered. Underlying CHF present. ACT 112: N/A Electronically signed by Michelle Fields 09-26-2025 7:17 PM
[2025-09-26] MEDS: FUROSEMIDE 40 MG/4 ML VIAL IV ONE (20:43)
[2025-09-27 04:54] LABS: Anion Gap 6.0 (3-11); Blood Urea Nitrogen 32.0 mg/dl (6-23); Calcium 7.3 mg/dl (8.6-10.3); Carbon Dioxide 24.0 mmol/L (21-32); Chloride 113.0 mmol/L (98-107); Creatinine Clr Calc Pharmacy 24.9 ml/min; Glucose 124.0 mg/dl (70-99(Fasting)); Magnesium 2.4 mg/dl (1.7-2.4); Potassium 3.1 mmol/L (3.5-5.1); Sodium 143.0 mmol/L (136-145)
[2025-09-27 05:00] LABS: Hematocrit (blood only) 30.7 % (42.0-52.0); Hemoglobin 9.9 g/dL (14.0-18.0); Mean Corpuscular Hemoglobin 36.4 pg (25.0-34.0); Mean Corpuscular Volume 112.9 fL (80.0-100.0); Platelet Count 50 K/uL (130-400); RDW Standard Deviation 64.1 fL (36.4-46.3); Red Blood Count 2.72 M/uL (4.70-6.10); White Blood Count 10.83 K/ul (4.8-10.8)
[2025-09-27 05:02] LABS: Dohle Bodies 1+; Immature Granulocytes # (auto) 0.09 K/uL (0.01-0.20); Immature Granulocytes % (auto) 0.8 %; Macrocytosis Present; Ovalocytes 1+; Polychromasia 2+; Toxic Granulation 1+
[2025-09-27] MEDS: POTASSIUM CHLORIDE CRTAB 20 MEQ TABCR PO STA (07:24)
[2025-09-27 08:00] LABS: Target Cells 1+
[2025-09-27 08:01] LABS: Acanthocytes 2+
[2025-09-27 08:01] LABS: Target Cells 1+
--- NOTE | 2025-09-27 08:28 | Critical Care Progress Note ---
Date of Service September 27, 2025 Assessment & Plan (1) Dysrhythmia: (2) Shock: (3) Hypoxia: (4) Elevated troponin: (5) Acute kidney injury superimposed on stage 3a chronic kidney disease: (6) Diverticulitis: (7) Ileus: (8) Acute hypoxic respiratory failure: Plan Patient is a 71-year-old male with a history of HFpEF, CAD, paroxysmal atrial fibrillation without anticoagulation, home rate controlled with beta-abida (stopped taking it a few weeks ago), COPD, cancer of unknown primary with metastatic disease to bladder and lung. The patient follows with Dr. Everett at [facility] oncology. He received 6 cycles of pemetrexed plus carboplatin and Keytruda. Continued on maintenance with pemetrexed and Keytruda. Then transition to docetaxel and ramicurimab. Last therapy was on 09/17/2025. The patient presented to the hospital 09/24/2025 with a complaint of nausea, vomiting and diarrhea for 3 days duration. He was unable to tolerate p.o. Also worsening shortness of breath, does not normally wear oxygen at home. In the emergency department the patient was found to be hypoxic. Imaging of the chest was concerning for pulmonary edema with pleural effusions. BioFire was negative. Required 8 L on admission. Imaging of the abdomen showed ileus and mild descending colonic diverticulitis. The patient was in A-fib with RVR on presentation. Troponins were elevated as well as BNP. He was in ANDRES as well. General surgery and cardiology were both consulted on admission. The patient received fluid resuscitation with 2-1/2 L of fluid. Trial of Lopressor was done however the patient had worsening hypotension and continued to go in and out of A-fib. The patient was transferred to the ICU for pressor support. He was initiated on amiodarone and phenylephrine. He was continued on oxygen supplementation. No further fluid resuscitation was given. Reason Critically Ill: Arrhythmia, A-fib RVR and SVT Shock state, septic versus cardiogenic in setting of uncontrolled arrhythmias Elevated troponin Heart failure with moderately reduced ejection fraction Acute hypoxic respiratory failure Pulmonary edema and pleural effusions ANDRES on CKD Ileus Diverticulitis Metastatic carcinoma with recent chemotherapy and immunotherapy Thrombocytopenia Neuro: Awake and alert. No neurologic deficits at this time. Cardiac: Shock state Arrhythmia, A-fib RVR and SVT Elevated troponin Heart failure with moderately reduced ejection fraction Not currently on anticoagulation, has thrombocytopenia patient deferred anticoagulation previously. On amiodarone infusion, received bolus. Troponins are downtrending. Echocardiogram was performed. Moderately reduced systolic function with an EF of 40 to 45% and global hypokinesis. Grade 2 diastolic dysfunction. Normal RV size and function. Mild aortic stenosis, mild to moderate pulmonic regurg, mild MR and TR. Patient received metoprolol 12.5 mg, also got a one-time dose of digoxin due to uncontrolled heart rate. He has remained on the amiodarone infusion, his heart rate is better controlled, did have 1 episode of SVT today. He is bradycardic when he is in sinus so we cannot add beta-blockers on at this time. Continue phenylephrine for blood pressure support. Will add midodrine 5 mg 3 times daily. Received 2.5 L fluid resuscitation with crystalloid on admission, got 500 cc 09/24/2025 without significant improvement in blood pressure. She was on IV fluids yesterday however got more hypoxic, he got a dose of Lasix with some improvement in his oxygenation and fluids were stopped. Will likely require fluid resuscitation in order to wean oxygen. Will hold off for now because he is in shock. Cortisol level is borderline 18, got a one-time dose of 100 mg of hydrocortisone without significant improvement in blood pressure. Cardiology was consulted, appreciate assistance with case. Respiratory: Acute hypoxic respite failure Underlying COPD Pulmonary edema with bilateral pleural effusions (left Thora 08/16/2025, appears transudative with low protein and LDH. Negative cultures) CT imaging was reviewed by myself small to moderate bilateral pleural effusions appreciated. Interlobular septal thickening suggesting pulmonary edema. There is also what appears to be an infiltrate, most appreciated on the left. Patient has been started on Zosyn and azithromycin. I agree with this. Continue DuoNebs. Respiratory BioFire was negative. Procalcitonin 1.13 -->0.66. MRSA nares negative. Continue oxygen supplementation, wean as tolerated. Will likely need Lasix once out of shock for pulmonary edema and pleural effusions. Patient has a weak cough, has been laying in bed a lot. Seems to have mucus plugged in addition to the pulmonary edema. Possible pneumonia. Adding pulmonary toilet today. Needs to get out of bed. GI: Ileus Diverticulitis Diarrhea Patient has been started on Zosyn. I agree with this. Protonix 40 twice daily. Diarrhea is improving, has not had a bowel movement since yesterday evening. Got loperamide x 1. Stool PCR negative. Will advance diet to full liquid. RENAL/LYTES: ANDRES on CKD Electrolyte disturbance Received 3 L crystalloid resuscitation. ANDRES is improving. Making good urine. Monitor and replace electrolytes, given KCl, K-Phos and calcium today. : BPH Urinary retention Required straight cath, continue to retain. Valenzuela catheter placed. Will stop Flomax given hypotension. Keep Valenzuela. ENDO: Blood glucose acceptable. A1c slightly elevated at 5.9. TSH okay. Cortisol is borderline 18.9, got 100 mg dose of hydrocortisone, did not respond to this so it was not continued. HEME: Metastatic carcinoma on chemo and immunotherapy Thrombocytopenia Place SCDs, holding heparin. Presentation could be cardiotoxicity given recent chemotherapy. Could also be immuno therapy related. ID: Shock state, septic versus cardiac related. Patient is on Zosyn and azithromycin, I agree with this. Blood cultures show no growth to date. Has an infiltrate on CT, Pro-Jd slightly elevated but downtrending. Urine does not look infected. MRSA nares negative. BioFire was negative. Procalcitonin is downtrending. We did order sputum culture which has been collected today. Will follow. Feeding: Full liquid diet Fluids: None Analgesia: Oxy Activity: Up to chair, please out of bed is much as possible. Thromboprophylaxis: SCD Ulcer prophylaxis: Pantoprazole Glycemic control: Not indicated Bowels: Diarrhea has slowed down, got 1 dose of loperamide today. Indwelling catheters: PIV Antibiotics: Zosyn and azithromycin Plan: Patient will remain in the ICU. Continued need for phenylephrine. We have added midodrine. Wean phenylephrine. Did not seem to respond to hydrocortisone so this was not continued. Heart rate is better controlled however he is bradycardic when he is in sinus rhythm. Occasionally does have SVT but does not last as long as it was previously. He is still on the amiodarone infusion. Cardiology is following. Given the bradycardia beta-blockers are not a good option at this time. We are getting a sputum culture, he did have increased oxygen requirement and has some phlegm production. Pro-Jd is downtrending however. Will continue antibiotics. Once he was off phenylephrine we will start diuresing, he made good urine output with a dose of Lasix yesterday and his creatinine still improved. I have personally spent 45 minutes of critical care time in the direct management of this patient. This is a life/limb threatening event. This includes time spent evaluating patient, direct bedside care, chart review, placing orders, interpretation of diagnostic studies, discussion with consultants, patient, and family members, as well as other required patient management activities. This time is exclusive of all separately billable procedures, and teaching time and separate from and in addition to any other critical care service time. Admission and Anticipated Discharge Date Admission Date: September 24, 2025 Subjective Past 24-hour events: Heart rate was better controlled yesterday. We initiated IV fluids per cardiology recommendations due to continued diarrhea from the patient. Acutely in the afternoon the patient became significantly hypoxic requiring 15 L. Chest x-ray showed increasing pleural effusion, to me the pulmonary opacities little bit better however x-rays read is worsening. IV fluids were stopped, Lasix were administered. Oxygenation improved slightly. Was weaned down to 8 L by the evening. Diarrhea slowed down all day yesterday. Did not require loperamide. Rounding: Patient seen and examined this morning. Overall he is feeling better. He has not had diarrhea since yesterday evening at 11 PM. He is wanting to advance his diet if possible. Appetite is good. Not having significant shortness of breath. Still requiring a significant mount of oxygen however I think that the sat probe is not 100% accurate because often he is at 99%, this is on 8 L. No fevers or chills. He is coughing some, occasionally productive. Has a flutter valve at bedside but has not been using it frequently. Discussed with him that we are going to start some nebulizers on him and he needs to use the flutter valve more frequently. He needs to be out of bed. Still hypotensive. On phenylephrine at 1.5. Heart rate is much better, he still on amiodarone. Pro-Jd and sputum culture ordered today. Will give loperamide this morning x 1. Received p.o. potassium, will give K-Phos and calcium as well. Intake: 3437 mL Output: 1259 mL Net: + 2178 mL Mechanical ventilation: None, on nasal cannula with 8 L, saturation is fluctuating randomly between 92 and 99%. Feeding: Clear with diet, will advance today IV infusions: Amiodarone, phenylephrine Indwelling catheters: Valenzuela catheter, peripheral IV, Mediport. Laboratory: CBC: WBC 10.8, hemoglobin 9.9, platelet 50 Chemistry: Sodium 143, potassium 3.1, chloride 113, bicarb 24, BUN 32, creatinine 2.25 (downtrending), glucose 124, calcium 7.3, iCal 106, phosphorus 2.4, magnesium 2.4. ABG: None Review of Systems Review of Systems: Negative except as in HPI. Physical Exam Physical Exam: Physical examination: General: Well-appearing, well-nourished and not in acute distress. HEENT: Normocephalic, atraumatic. Extraocular movements intact. Sclera are nonicteric. No JVD appreciated. Skin: Warm and dry. No rashes appreciated. No jaundice appreciated. Cardiovascular: Heart is a regular rate and rhythm. No murmurs appreciated on my exam. Lungs: Coarse with crackles, diminished at bases, wheezing. On nasal cannula. Nontachypneic. Saturation 92-99%. Abdomen: Nondistended, nontender to palpation. No masses appreciated. Musculoskeletal: Normal muscle mass and tone. No gross joint deformity abnormalities. No effusions appreciated. Neurologic: Awake and alert, oriented. CN II through XII are grossly intact. Speech is fluent. Nonfocal exam. Psychiatric: Appropriate cooperative during my exam. Results & Data Results & Data Vital Signs (Past 12 Hours) Vital Signs Pulse Resp BP Pulse Ox O2 Del Method O2 Flow Rate 09/27/25 06:30 62 22 93 09/27/25 06:21 63 24 91 09/27/25 06:12 60 15 86 L 09/27/25 06:00 60 9 L 88 L 09/27/25 05:51 61 22 86 L 09/27/25 05:42 58 L 14 88 L 09/27/25 05:30 60 16 90 09/27/25 05:21 63 26 H 88 L 09/27/25 05:12 63 20 93 09/27/25 05:00 108/61 09/27/25 05:00 62 18 91 09/27/25 04:51 58 L 22 91 09/27/25 04:42 60 23 92 09/27/25 04:32 110/49 L 09/27/25 04:30 66 26 H 91 09/27/25 04:21 63 23 92 09/27/25 04:12 64 25 H 89 L 09/27/25 04:00 101/79 09/27/25 04:00 69 30 H 79 L 09/27/25 03:51 65 29 H 91 09/27/25 03:42 66 27 H 90 09/27/25 03:30 62 17 93 09/27/25 03:30 97/46 L 09/27/25 03:21 62 20 91 09/27/25 03:12 63 26 H 90 09/27/25 03:00 57 L 18 89 L 09/27/25 03:00 108/53 L 09/27/25 02:51 73 15 91 09/27/25 02:42 60 22 90 09/27/25 02:30 103/52 L 09/27/25 02:30 103/52 L 09/27/25 02:00 89/45 L 09/27/25 02:00 61 21 88 L 09/27/25 01:30 57 L 7 L 93 09/27/25 01:29 57 L 09/27/25 01:00 108/52 L 09/27/25 01:00 61 29 H 87 L 09/27/25 00:30 101/48 L 09/27/25 00:30 62 15 93 09/27/25 00:01 111/53 L 09/27/25 00:00 58 L 26 H 87 L 09/26/25 23:30 107/50 L 09/26/25 23:30 60 25 H 91 09/26/25 23:20 112/50 L 09/26/25 23:18 60 26 H 91 09/26/25 23:00 61 20 92 09/26/25 23:00 86/57 L 09/26/25 22:30 108/49 L 09/26/25 22:30 61 25 H 93 09/26/25 22:02 66 31 H 88 L 09/26/25 22:01 96/48 L 09/26/25 21:59 63 27 H 91 09/26/25 21:32 58 L 9 L 93 09/26/25 21:30 119/52 L 09/26/25 21:29 57 L 4 L 93 09/26/25 21:17 58 L 22 93 09/26/25 21:02 60 20 93 09/26/25 21:00 High Flow Nasal Cannula 8 09/26/25 21:00 112/51 L 09/26/25 20:59 60 18 93 09/26/25 20:47 58 L 21 90 09/26/25 20:35 57 L 21 09/26/25 20:30 116/55 L 09/26/25 20:27 57 L 22 Coding Level of Care Code 95613 CRITICAL CARE 1ST 30-74M Diagnoses Dysrhythmia I49.9 Shock R57.9 Hypoxia R09.02 Elevated troponin R79.89 Acute kidney injury superimposed on stage 3a chronic kidney disease N17.9; N18.31 Diverticulitis K57.92 Ileus K56.7 Acute hypoxic respiratory failure J96.01
[2025-09-27] MEDS ORDERED: POTASSIUM PHOS 3 MMOL/1 ML INFUSION IV STA (08:30)
[2025-09-27] MEDS ORDERED: ACETYLCYSTEINE 10% INHAL SOLN 4 ML **DISPENSED BY RESP. INH SCH (09:00)
[2025-09-27] MEDS: CALCIUM GLUCONATE 1,000 MG/60 ML BAG IV SCH (09:22)
[2025-09-27] MEDS: LOPERAMIDE HCL 2 MG CAP PO STA (09:23)
[2025-09-27] MEDS: POTASSIUM PHOSPHATE 21 MMOL in SODIUM CHLORIDE 0.9% 500 ML IV ONE (10:01)
[2025-09-27] MEDS: ALBUT/IPRATROP 3MG/0.5MG NEB 3 ML VIAL NEB SCH (10:32)
[2025-09-27] MEDS: ACETYLCYSTEINE 10% INHAL SOLN 4 ML **DISPENSED BY RESP. INH SCH (10:33)
[2025-09-27] MEDS: MIDODRINE HCL 2.5 MG TAB PO SCH (12:03)
[2025-09-27] MEDS: AMIODARONE 200 MG TAB PO SCH (12:03)
[2025-09-27] MEDS: DIGOXIN 125 MCG in SYRINGE 9.5 ML IV STA (12:39)
[2025-09-27 13:52] LABS: Creatine Kinase 46.0 U/L (30-223)
--- NOTE | 2025-09-27 14:41 | Hospitalist Progress Note ---
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 Shock Multifactorial: Septic from Pneumonia, Diverticulitis; Hypovolemic from Diarrhea; Cardiogenic from systolic CHF blood culture: negative x 48 hrs sputum culture: pending remains on Phenylephrine Midodrine added continue IV Zosyn Echocardiogram was performed. Moderately reduced systolic function with an EF of 40 to 45% and global hypokinesis. Grade 2 diastolic dysfunction. Normal RV size and function. Mild aortic stenosis, mild to moderate pulmonic regurg, mild MR and TR. Acute hypoxic respiratory failure Interstitial pulmonary edema, small to moderate L pleural effusion seen on CXR Small layering pleural effusions and compressive bilateral lower lobe consolidation seen on CTAP Acute on chronic HFpEF Resp BioFire negative. Requiring 8L OxyMask in ED, maintaining sats in the upper 90s. BNP 1006 however pt is hypotensive and appears dry on exam, s/p 1.5L IVF in the ED. Continue IVF, update TTE as per below. Prior TTE last month: EF 55%, moderately dilated LA, moderate MR, mild TR. Wean O2 as tolerated. Does have nonproductive cough/congestion and CXR reads patchy bibasilar opacities, possible PNA. Covering with IV Zosyn for now, as per below. Pulm toileting as able. May need to consider pulm consult regarding b/l effusions. 09/26 still on 10 L NC continue IV Abx Nebs, Mucomyst Lasix held due to hypotension Atrial Fibrillation likely secondary to above on Amiodarone anticoagulation held as Plt 40k N/V/D Ileus with findings suggestive of mild descending colonic acute diverticulitis on CTAP Maintain NPO status, continue IVF and PRN electrolyte repletion. S/p IV Zithromax, Rocephin and Flagyl in ED. Appreciate gen surgery consult. Empiric ABX coverage with IV Zosyn for now. Check stool PCR, C. diff studies: negative ANDRES superimposed on CKD stage IIIa Cr previously 1.8 as of 08/19/25, appears baseline prior to that was around 1- 1.2 as per records. Cr 3.25 on presentation today. Suspect related to volume depletion ISO above, IVF onboard. crea improving to 2.9--> 2.2 Pancytopenia Metastatic poorly-differentiated carcinoma with unknown primary, most likely origin thought pulmonary F/w [facility] oncology, Dr. Everett. Diagnosed in 2023. PET scan done on 04/23/24 which revealed metabolically active pleural-based lung nodules suspicious for metastases and metabolically active prevascular and left suprahilar lymphadenopathy. Completed 6 cycles of combination of pemetrexed plus carboplatin Keytruda with overall good tolerance. Follow-up PET scan done after 4 cycles of chemotherapy revealed good response. Was on maintenance treatment including combination of pemetrexed and Keytruda. Follow-up PET scan done on 08/07/25 revealed disease progression. Now on combination Docetaxel and Ramucirumab; last received chemotherapy on 09/17/25. Continue PRN oxy IR for cancer-related pain. Neutropenic precautions, fall precautions in light of thrombocytopenia. monitor Chronic anemia: H/H appears stable compared to prior, continue to monitor. DMII with peripheral vascular disease: Hgb A1c 5.7% 1mo ago, SSI protocol while admitted with BSG checks ACHS. ASCVD: Continue ASA, statin therapy. COPD: Continue home inhaler. Infrarenal abdominal aortic aneurysm Appears stable on CTAP today, measuring 3.3cm. Recommend CTAP or MR imaging follow-up in 3yr as per ACR White Paper guidelines. HTN: Hold lisinopril for now given hypotension, resume as able/tolerated. PAF: Not on chemical AC per patient's preference. Continue BB for now. GERD: Continue PPI BID. BPH: Continue Flomax. Hypocalcemia: Check vit D level, continue to monitor. DVT Prophylaxis: SCDs/TEDs only for now in light of thrombocytopenia Code Status: FULL CODE - Discussed with pt at bedside in the ED. Disposition: Admit to PCU Admission and Anticipated Discharge Date Admission Date: September 24, 2025 Subjective seen resting in bed, comfortable on 10 L o2 NC states he feels improved today less weak breathing is ok no chest pain, palpitations, dizziness, nausea no other symptoms Review of Systems Review of Systems: all noted and negative except for above Physical Exam Physical Exam: General- oriented x 3, not in distress, speaks in sentences with no effort or accessory muscle use Eyes- anicteric Neck- no JVD Lungs-mild rales at the bases Heart- normal rate, regular rhythm; no murmurs Abdomen- normal bowel sounds, nondistended, soft, no tenderness Extremities- no pretibial edema, no calf tenderness Neuro- alert, oriented x 3; no gross focal neurologic deficits Skin- warm & dry Results & Data Results & Data Vital Signs (Past 12 Hours) Vital Signs Pulse Pulse Resp BP Pulse Ox O2 Del Method O2 Flow Rate 09/27/25 14:30 66 20 96 09/27/25 14:30 94/64 L 09/27/25 14:30 94/64 L 09/27/25 14:30 94/64 L 09/27/25 14:00 68 13 95 09/27/25 14:00 108/51 L 09/27/25 14:00 108/51 L 09/27/25 14:00 108/51 L 09/27/25 14:00 108/51 L 09/27/25 14:00 108/51 L 09/27/25 13:30 91/56 L 09/27/25 13:30 91/56 L 09/27/25 13:30 91/56 L 09/27/25 13:30 91/56 L 09/27/25 13:30 91/56 L 09/27/25 13:30 144 H 15 91 09/27/25 13:15 103/52 L 09/27/25 13:15 103/52 L 09/27/25 13:15 103/52 L 09/27/25 13:15 103/52 L 09/27/25 13:15 67 23 91 09/27/25 13:06 75/52 L 09/27/25 13:06 75/52 L 09/27/25 13:06 75/52 L 09/27/25 13:06 75/52 L 09/27/25 13:06 75/52 L 09/27/25 13:06 152 H 22 94 09/27/25 13:02 65/47 L 09/27/25 13:02 65/47 L 09/27/25 13:02 65/47 L 09/27/25 13:02 65/47 L 09/27/25 13:00 152 H 12 94 09/27/25 13:00 63/50 L 09/27/25 13:00 63/50 L 09/27/25 12:39 93 H 09/27/25 12:00 92/65 L 09/27/25 12:00 92/65 L 09/27/25 12:00 92/65 L 09/27/25 12:00 92/65 L 09/27/25 12:00 92/65 L 09/27/25 12:00 145 H 22 88 L 09/27/25 11:30 116/56 L 09/27/25 11:30 116/56 L 09/27/25 11:30 116/56 L 09/27/25 11:30 116/56 L 09/27/25 11:30 116/56 L 09/27/25 11:30 73 13 91 09/27/25 11:00 94/81 L 09/27/25 11:00 94/81 L 09/27/25 11:00 94/81 L 09/27/25 11:00 94/81 L 09/27/25 10:35 67 20 94 Nasal Cannula 8 09/27/25 10:12 137 H 17 95 09/27/25 10:00 67 29 H 96 09/27/25 10:00 102/40 L 09/27/25 09:00 66 24 93 09/27/25 09:00 101/57 L 09/27/25 08:00 64 22 92 09/27/25 08:00 106/49 L 09/27/25 08:00 High Flow Nasal Cannula 8 09/27/25 07:31 111/58 L 09/27/25 07:00 100/48 L 09/27/25 07:00 100/48 L 09/27/25 07:00 100/48 L 09/27/25 07:00 100/48 L 09/27/25 07:00 100/48 L 09/27/25 07:00 61 19 88 L High Flow Nasal Cannula 8 09/27/25 06:30 62 22 93 09/27/25 06:21 63 24 91 09/27/25 06:12 60 15 86 L 09/27/25 06:00 60 9 L 88 L 09/27/25 05:51 61 22 86 L 09/27/25 05:42 58 L 14 88 L 09/27/25 05:30 60 16 90 09/27/25 05:21 63 26 H 88 L 09/27/25 05:12 63 20 93 09/27/25 05:00 108/61 09/27/25 05:00 62 18 91 09/27/25 04:51 58 L 22 91 09/27/25 04:42 60 23 92 09/27/25 04:32 110/49 L 09/27/25 04:30 66 26 H 91 09/27/25 04:21 63 23 92 09/27/25 04:12 64 25 H 89 L 09/27/25 04:00 101/79 09/27/25 04:00 69 30 H 79 L 09/27/25 03:51 65 29 H 91 09/27/25 03:42 66 27 H 90 09/27/25 03:30 62 17 93 09/27/25 03:30 97/46 L 09/27/25 03:21 62 20 91 09/27/25 03:12 63 26 H 90 09/27/25 03:00 57 L 18 89 L 09/27/25 03:00 108/53 L 09/27/25 02:51 73 15 91 09/27/25 02:42 60 22 90 all noted and reviewed including below
--- NOTE | 2025-09-27 15:04 | Cardiology Progress Note ---
Date of Service September 27, 2025 Assessment & Plan (1) Demand ischemia: (2) SVT (supraventricular tachycardia): (3) ANDRES (acute kidney injury): (4) Hypotension: (5) Paroxysmal atrial flutter: (6) ASCVD (arteriosclerotic cardiovascular disease): (7) Elevated troponin: (8) Septic shock: Plan 80-year-old male with metastatic malignancy with unknown primary (previously treated with pemetrexed and Keytruda) who developed nausea, vomiting, diarrhea, poor oral intake, and progressive weakness after initiation of Ramucirumab (Cyramza) and docetaxel (Taxotere) on September 17, 2025. Patient ultimately presented to the [facility] ER on 09/24/2025 hypoxic (84%), hypotensive (74/54), and tachycardic (150 bpm). Laboratory work with acute kidney injury (creatinine 3.25 mg/dL). CBC with pancytopenia, marked thrombocytopenia (40K). EKG revealed narrow complex tachycardia consistent with SVT/PAT, possible atrial flutter with diffuse STT wave depression. Patient asymptomatic in regards to tachypalpitations. High sensitivity troponin elevated (611.8 -> 679.6 -> 635.7 - > 535.6 pg/mL), representing demand ischemia in the setting of critical illness. Echocardiography with moderate reduction in LV systolic function (EF 40-45%) without regional wall motion abnormalities. Patient asymptomatic in regards to overt angina. Ongoing hypotension noted. Suspect adverse reactions to chemotherapy, cardiovascular toxicity, and hypovolemic shock. Continue pressor support with phenylephrine. Continue IV amiodarone. Marked thrombocytopenia precludes anticoagulation. Patient is still having loose watery stools which started post chemo IMP: Hypovolemic shock Post chemo sequelae ANDRES on CKD - slow improvement PAF with RVR Metastatic malignancy Pleural Effusion Pancytopenia - some improvement, however with persistent thrombocytopenia Abn Troponin - likely due to demand ischemia and not indicative of Type I OH Moderate LV systolic dysfunction Hypokalemia - persistent -> defer to hospitalist Persistent hypotension with PSVT and PAF with RVR requiring vasopressors likely due to post chemo sequelae would avoid using metoprolol or Cardizem while patient is on pressors as they may decrease BP and increase pressors requirement RECOMMENDATIONS: would avoid fluid boluses unless urgently/emergently indicated due to LV systolic dysfunction may use Dig for rate control -> keep K between 4 and 4.5 and Mg between 2 and 2.5 when on Digoxin may use diuretics prn if indicated consider thoracentesis continue pressors keeping MAP > 65mmHg Hold off on all anti-HTN meds until off pressors and there is room for BP for them to be given Anticoagulation if no contraindication and when cleared by Hem-Onc Hem-Onc consult correct and f/u electrolytes f/u renal function avoid hypovolemia keep patient euvolemic DVT prophylaxis strict I&Os repeat CXR Admission and Anticipated Discharge Date Admission Date: September 24, 2025 Subjective Patient on exam is lying in bed in NAD; no c/o cp, sob, palpitations, dizziness, LOC, abdominal pain no diarrhea - Imodium given by [employer]; IVF stopped Patient continues to be hypotensive with PSVT and PAF with RVR requiring vasopressors likely due to post chemo sequelae including peripheral vasodilation, residual hypovolemia and intravascular fluid depletion Review of Systems Review of Systems: as per hpi Physical Exam Physical Exam: General: Resting comfortable, chronically ill appearing. Skin: Pallor HENT: Normocephalic. Atraumatic. Eyes: PER. Conjunctiva pink, sclera pale. Neck: No JVD Heart: Regular at 60 bpm. Soft systolic murmur. No rub. Lungs: Decreased BS B/L bases Scattered rhonchi. Abdomen: +BS. Soft. Nontender. No masses or organomegaly. Extremities: No edema. Limited neurological examination is without focal deficits. Pulses: radial=2/4, posterior tibial=1-2/4 on the left and 2/4 on the right Results & Data Vital Signs (Past 12 Hours) Vital Signs Vital Signs Temp 36.8 C 09/26/25 01:01 Pulse 66 09/27/25 14:30 Resp 20 09/27/25 14:30 BP 94/64 L 09/27/25 14:30 Pulse Ox 96 09/27/25 14:30 O2 Del Method Nasal Cannula 09/27/25 10:35 O2 Flow Rate 8 09/27/25 10:35 Intake & Output 09/26/25 09/27/25 09/27/25 18:59 06:59 18:59 Intake Total 2929.321 / 3546.222 616.901 / 3546.222 976.538 / 976.538 Output Total 553 / 1259 706 / 1259 801 / 801 Balance 2376.321 / 2287.222 -89.099 / 2287.222 175.538 / 175.538 Weight 80.2 kg Intake: IV 2329.321 / 2946.222 616.901 / 2946.222 576.538 / 576.538 Amiodarone / D5w 360 mg In 200 200 / 385.092 185.092 / 385.092 272.210 / 272.210 ml @ 0.5 MG/MIN 16.667 mls/hr IV .Q12H [facility] Rx#:[id number] Azithromycin 500 mg In 255 ml @ 255 / 255 127.5 mls/hr IV Q24H [facility] Rx#: [id number] Calcium Gluconate 1,000 mg In 120 / 120 76 / 76 60 ml @ 240 mls/hr IV Q15M [facility] Rx#:[id number] Lactated Ringer's 1,000 ml @ 566.667 / 566.667 100 mls/hr IV .Q10H [facility] Rx#: [id number] Magnesium Sulfate / D5w 1 gm In 344.167 / 444.167 100 / 444.167 100 ml @ 50 mls/hr IV Q2H [facility] Rx#:[id number] Phenylephrine/Nss 100 mg In 250 168.080 / 399.889 231.809 / 399.889 128.328 / 128.328 ml @ 1.3 MCG/KG/MIN 14.898 mls /hr IV .[id number] [facility] Rx#: [id number] Phenylephrine/Nss 25 mg In 250 475.407 / 475.407 ml @ 2.3 MCG/KG/MIN 105.432 mls /hr IV .Q2H23M [facility] Rx#:[id number] Piperacillin/Tazobactam 4.5 gm 200 / 300 100 / 300 100 / 100 In 100 ml @ 25 mls/hr IV Q8H [facility] Rx#:[id number] Oral 600 / 600 400 / 400 Output: Urine Amount (Catheter) 550 / 1255 705 / 1255 800 / 800 Coude 550 / 1255 705 / 1255 800 / 800 # Bowel Movements 3 / 4 1 / 4 Other: Weight Measurement Method Built in [facility] Pulse Pulse Resp BP Pulse Ox O2 Del Method O2 Flow Rate 09/27/25 14:30 66 20 96 09/27/25 14:30 94/64 L 09/27/25 14:30 94/64 L 09/27/25 14:30 94/64 L 09/27/25 14:00 68 13 95 09/27/25 14:00 108/51 L 09/27/25 14:00 108/51 L 09/27/25 14:00 108/51 L 09/27/25 14:00 108/51 L 09/27/25 14:00 108/51 L 09/27/25 13:30 91/56 L 09/27/25 13:30 91/56 L 09/27/25 13:30 91/56 L 09/27/25 13:30 91/56 L 09/27/25 13:30 91/56 L 09/27/25 13:30 144 H 15 91 09/27/25 13:15 103/52 L 09/27/25 13:15 103/52 L 09/27/25 13:15 103/52 L 09/27/25 13:15 103/52 L 09/27/25 13:15 67 23 91 09/27/25 13:06 75/52 L 09/27/25 13:06 75/52 L 09/27/25 13:06 75/52 L 09/27/25 13:06 75/52 L 09/27/25 13:06 75/52 L 09/27/25 13:06 152 H 22 94 09/27/25 13:02 65/47 L 09/27/25 13:02 65/47 L 09/27/25 13:02 65/47 L 09/27/25 13:02 65/47 L 09/27/25 13:00 152 H 12 94 09/27/25 13:00 63/50 L 09/27/25 13:00 63/50 L 09/27/25 12:39 93 H 09/27/25 12:00 92/65 L 09/27/25 12:00 92/65 L 09/27/25 12:00 92/65 L 09/27/25 12:00 92/65 L 09/27/25 12:00 92/65 L 09/27/25 12:00 145 H 22 88 L 09/27/25 11:30 116/56 L 09/27/25 11:30 116/56 L 09/27/25 11:30 116/56 L 09/27/25 11:30 116/56 L 09/27/25 11:30 116/56 L 09/27/25 11:30 73 13 91 09/27/25 11:00 94/81 L 09/27/25 11:00 94/81 L 09/27/25 11:00 94/81 L 09/27/25 11:00 94/81 L 09/27/25 10:35 67 20 94 Nasal Cannula 8 09/27/25 10:12 137 H 17 95 09/27/25 10:00 67 29 H 96 09/27/25 10:00 102/40 L 09/27/25 09:00 66 24 93 09/27/25 09:00 101/57 L 09/27/25 08:00 64 22 92 09/27/25 08:00 106/49 L 09/27/25 08:00 High Flow Nasal Cannula 8 09/27/25 07:31 111/58 L 09/27/25 07:00 100/48 L 09/27/25 07:00 100/48 L 09/27/25 07:00 100/48 L 09/27/25 07:00 100/48 L 09/27/25 07:00 100/48 L 09/27/25 07:00 61 19 88 L High Flow Nasal Cannula 8 09/27/25 06:30 62 22 93 09/27/25 06:21 63 24 91 09/27/25 06:12 60 15 86 L 09/27/25 06:00 60 9 L 88 L 09/27/25 05:51 61 22 86 L 09/27/25 05:42 58 L 14 88 L 09/27/25 05:30 60 16 90 09/27/25 05:21 63 26 H 88 L 09/27/25 05:12 63 20 93 09/27/25 05:00 108/61 09/27/25 05:00 62 18 91 09/27/25 04:51 58 L 22 91 09/27/25 04:42 60 23 92 09/27/25 04:32 110/49 L 09/27/25 04:30 66 26 H 91 09/27/25 04:21 63 23 92 09/27/25 04:12 64 25 H 89 L 09/27/25 04:00 101/79 09/27/25 04:00 69 30 H 79 L 09/27/25 03:51 65 29 H 91 09/27/25 03:42 66 27 H 90 09/27/25 03:30 62 17 93 09/27/25 03:30 97/46 L 09/27/25 03:21 62 20 91 09/27/25 03:12 63 26 H 90 Laboratory Results Laboratory Results WBC 10.83 K/ul (4.8-10.8) H 09/27/25 04:09 RBC 2.72 M/uL (4.70-6.10) L 09/27/25 04:09 Hgb 9.9 g/dL (14.0-18.0) L 09/27/25 04:09 POC Hgb 9.2 g/dl (14.0-18.0) L 09/24/25 14:54 Hct 30.7 % (42.0-52.0) L 09/27/25 04:09 POC Hct 27 % (42-52) L 09/24/25 14:54 MCV 112.9 fL (80.0-100.0) H 09/27/25 04:09 MCH 36.4 pg (25.0-34.0) H 09/27/25 04:09 MCHC 32.2 g/dL (32.0-36.0) 09/27/25 04:09 RDW Std Deviation 64.1 fL (36.4-46.3) H 09/27/25 04:09 RDW Coeff of Ele 15.4 % (11.5-14.5) H 09/27/25 04:09 Plt Count 50 K/uL (130-400) L 09/27/25 04:09 MPV 14.1 fL (9.4-12.4) H 09/27/25 04:09 Immature Gran % (Auto) 0.8 % 09/27/25 04:09 Neut % (Auto) 86.0 % 09/27/25 04:09 Lymph % (Auto) 7.1 % 09/27/25 04:09 [place] % (Auto) 5.3 % 09/27/25 04:09 Eos % (Auto) 0.2 % 09/27/25 04:09 Baso % (Auto) 0.6 % 09/27/25 04:09 Neut # (Auto) 9.31 K/uL (1.40-6.50) H 09/27/25 04:09 Lymph # (Auto) 0.77 K/uL (1.20-3.40) L 09/27/25 04:09 [place] # (Auto) 0.57 K/uL (0.11-0.59) 09/27/25 04:09 Eos # (Auto) 0.02 K/uL (0.00-0.50) 09/27/25 04:09 Baso # (Auto) 0.07 K/uL (0.00-0.20) 09/27/25 04:09 Immature Gran # (Auto) 0.09 K/uL (0.01-0.20) 09/27/25 04:09 Absolute Nucleated RBC 0.02 K/uL (0.00-0.12) 09/27/25 04:09 Nucleated RBC % (auto) 0.2 % 09/27/25 04:09 Toxic Granulation 1+ 09/27/25 04:09 Toxic Vacuolation 1+ 09/26/25 04:55 Dohle Bodies 1+ 09/27/25 04:09 Polychromasia 2+ 09/27/25 04:09 Macrocytosis Present 09/27/25 04:09 Target Cells 1+ 09/27/25 04:09 Ovalocytes 1+ 09/27/25 04:09 Echinocytes 2+ 09/27/25 04:09 Acanthocytes (Spur) 2+ 09/27/25 04:09 VBG pH 7.34 (7.36-7.41) L 09/24/25 15:02 VBG pCO2 49 mmHg (38-50) 09/24/25 15:02 VBG pO2 24 mmHg 09/24/25 15:02 VBG HCO3 26 mmol/L 09/24/25 15:02 VBG O2 Saturation < 60.0 % 09/24/25 15:02 VBG Base Excess 0.3 mEq/L 09/24/25 15:02 POC Sodium 142 mmol/L (135-144) 09/24/25 14:54 Sodium 143 mmol/L (136-145) 09/27/25 04:09 POC Potassium 5.0 mmol/L (3.3-5.0) 09/24/25 14:54 Potassium 3.1 mmol/L (3.5-5.1) L 09/27/25 04:09 POC Chloride 106 mmol/L (101-112) 09/24/25 14:54 Chloride 113 mmol/L (98-107) H 09/27/25 04:09 Carbon Dioxide 24 mmol/L (21-32) 09/27/25 04:09 POC Total CO2 24 mmol/L (24-31) 09/24/25 14:54 Anion Gap 6 (3-11) 09/27/25 04:09 POC Anion Gap 18.0 mmol/L (16-25) 09/24/25 14:54 POC BUN 45 mg/dl (7-18) H 09/24/25 14:54 BUN 32 mg/dl (6-23) H 09/27/25 04:09 Creatinine 2.25 mg/dl (0.6-1.4) H 09/27/25 04:09 POC Creatinine 3.3 mg/dl (0.6-1.3) H 09/24/25 14:54 Est Cr Clr Drug Dosing 24.9 ml/min 09/27/25 04:09 eGFR 28.93 09/27/25 04:09 BUN/Creatinine Ratio 14.2 (10-20) 09/27/25 04:09 Glucose 124 mg/dl (70-99(Fasting)) H 09/27/25 04:09 POC Glucose 122 mg/dl (70-99) H 09/27/25 07:14 POC Glucose (other) 104 mg/dl (70-99) H 09/25/25 18:26 Estimat Average Glucose 123 mg/dl 09/25/25 04:39 Hemoglobin A1c 5.9 % (4.5-5.6) H 09/25/25 04:39 Lactate 1.1 mmol/L (0.4-2.0) 09/25/25 08:40 Calcium 7.3 mg/dl (8.6-10.3) L 09/27/25 04:09 POC Ioniz Calcium Anthony 1.06 mmol/l (1.12-1.32) L 09/24/25 14:54 Ionized Calcium 1.06 mmol/L (1.12-1.32) L 09/27/25 04:09 Phosphorus 2.4 mg/dl (2.5-4.9) L 09/27/25 04:09 Magnesium 2.4 mg/dl (1.7-2.4) 09/27/25 04:09 Total Bilirubin 0.7 mg/dl (0.2-1.0) 09/25/25 04:39 Direct Bilirubin 0.5 mg/dl (0-0.2) H 09/24/25 14:51 AST 47 U/L (13-39) H 09/25/25 04:39 ALT 34 U/L (7-52) 09/25/25 04:39 Alkaline Phosphatase 86 U/L (34-104) 09/25/25 04:39 Total Creatine Kinase 46 U/L (30-223) 09/27/25 04:09 Troponin I High Sens 361.7 pg/ml (0-20) H* D 09/25/25 10:54 B-Natriuretic Peptide 1006 pg/ml (0-100) H 09/24/25 14:51 Total Protein 4.9 gm/dl (6.0-8.3) L 09/25/25 04:39 Albumin 2.5 gm/dl (3.4-5.0) L 09/25/25 04:39 Globulin 2.4 gm/dl (2.5-4.0) L 09/25/25 04:39 Albumin/Globulin Ratio 1.0 (0.9-2) 09/25/25 04:39 25-OH Vitamin D Total 60.9 ng/ml (30-100) 09/24/25 19:22 Procalcitonin 0.66 ng/ml (0-0.5) H 09/27/25 06:51 TSH 3.574 uIu/ml (0.300-4.500) 09/26/25 04:55 Random Cortisol Cancelled 09/26/25 04:44 Urine Color Yellow 09/25/25 10:40 Urine Appearance Clear (Clear) 09/25/25 10:40 Urine pH 5.5 (4.5-7.5) 09/25/25 10:40 Ur Specific [place] 1.017 (1.000-1.030) 09/25/25 10:40 Urine Protein 1+ (Negative) H 09/25/25 10:40 Urine Glucose (UA) Negative (Negative) 09/25/25 10:40 Urine Ketones Negative (Negative) 09/25/25 10:40 Urine Blood Trace (Negative) H 09/25/25 10:40 Urine Nitrite Negative (Negative) 09/25/25 10:40 Urine Bilirubin Negative (Negative) 09/25/25 10:40 Urine Urobilinogen Negative (Negative) 09/25/25 10:40 Ur Leukocyte Esterase Negative (Negative) 09/25/25 10:40 Urine WBC (Auto) 0-5 /hpf (0-5) 09/25/25 10:40 Urine RBC (Auto) 0-2 /hpf (0-2) 09/25/25 10:40 U Hyaline Cast (Auto) 3-5 /lpf (0-2) H 09/25/25 10:40 U Epithel Cells (Auto) 6-10 /hpf (0-2) H 09/25/25 10:40 Urine Bacteria (Auto) None Seen (None Seen) 09/25/25 10:40 Hyaline Casts Present /lpf (None Presnt) A 09/25/25 03:56 Granular Casts Present /lpf (None Prsent) A 09/25/25 10:40 Urine Comment 09/25/25 03:56 Nasal Screen MRSA (PCR) Negative (Negative) 09/25/25 Unknown Stl C. cayetanensis PCR Not Detected (NotDetected) 09/26/25 09:30 Stool Rotavirus A PCR Not Detected (NotDetected) 09/26/25 09:30 Stl Adenov F 40/41 PCR Not Detected (NotDetected) 09/26/25 09:30 Stool Astrovirus (PCR) Not Detected (NotDetected) 09/26/25 09:30 Stool Campylobacter PCR Not Detected (NotDetected) 09/26/25 09:30 Stl C. diff Tox B Gene Negative Cdiff Gene (Neg) 09/26/25 09:30 Stl C. diff [id number] NEGATIVE 09/26/25 09:30 Stool Cryptosporidium PCR Not Detected (NotDetected) 09/26/25 09:30 Stl E.coli Shiga Tox PCR Not Detected (NotDetected) 09/26/25 09:30 Stl Enterotoxigenic E PCR Not Detected (NotDetected) 09/26/25 09:30 Stool EPEC (PCR) Not Detected (NotDetected) 09/26/25 09:30 Stool EAEC (PCR) Not Detected (NotDetected) 09/26/25 09:30 Stl E. histolytica PCR Not Detected (NotDetected) 09/26/25 09:30 Stool Giardia Lamblia PCR Not Detected (NotDetected) 09/26/25 09:30 Stool Salmonella PCR Not Detected (NotDetected) 09/26/25 09:30 Stool Sapovirus (PCR) Not Detected (NotDetected) 09/26/25 09:30 Stl P. shigelloides PCR Not Detected (NotDetected) 09/26/25 09:30 Stl Shigella/EIEC PCR Not Detected (NotDetected) 09/26/25 09:30 St Y.enterocolitica PCR Not Detected (NotDetected) 09/26/25 09:30 Stool Vibrio (PCR) Not Detected (NotDetected) 09/26/25 09:30 Stl Vibrio cholerae PCR Not Detected (NotDetected) 09/26/25 09:30 Stl Norovirus GI/GII PCR Not Detected (NotDetected) 09/26/25 09:30 Adenovirus (PCR) Not Detected (NotDetected) 09/24/25 15:02 B. pertussis DNA (PCR) Not Detected (NotDetected) 09/24/25 15:02 B.parapertussis DNA PCR Not Detected (NotDetected) 09/24/25 15:02 C. pneumoniae DNA (PCR) Not Detected (NotDetected) 09/24/25 15:02 Coronavirus OC43 (PCR) Not Detected (NotDetected) 09/24/25 15:02 Coronavirus HKU1 (PCR) Not Detected (NotDetected) 09/24/25 15:02 Coronavirus 229E (PCR) Not Detected (NotDetected) 09/24/25 15:02 SARS-CoV-2 (PCR) Not Detected (NotDetected) 09/24/25 15:02 Coronavirus NL63 (PCR) Not Detected (NotDetected) 09/24/25 15:02 Human Metapneumovir PCR Not Detected (NotDetected) 09/24/25 15:02 Influenza Type A (PCR) Not Detected (NotDetected) 09/24/25 15:02 Influenza Type B (PCR) Not Detected (NotDetected) 09/24/25 15:02 M. pneumoniae (PCR) Not Detected (NotDetected) 09/24/25 15:02 Parainfluenza 1 (PCR) Not Detected (NotDetected) 09/24/25 15:02 Parainfluenza 2 (PCR) Not Detected (NotDetected) 09/24/25 15:02 Parainfluenza 3 (PCR) Not Detected (NotDetected) 09/24/25 15:02 Parainfluenza 4 (PCR) Not Detected (NotDetected) 09/24/25 15:02 RSV (PCR) Not Detected (NotDetected) 09/24/25 15:02 Entero/Rhino (PCR) Not Detected (NotDetected) 09/24/25 15:02 Ref Lab Test Result See Scanned Report 09/25/25 08:40 Impressions Abdomen/Pelvis CT 09/24/25 15:29 EXAM: CT Abdomen and Pelvis Without Intravenous Contrast INDICATION: Vomiting and diarrhea TECHNIQUE: Axial computed tomography images of the abdomen and pelvis without intravenous contrast. Sagittal and coronal reformatted images were created and reviewed. This CT exam was performed using one or more of the following dose reduction techniques: automated exposure control, adjustment of the mA and/or kV according to patient size, and/or use of iterative reconstruction technique. COMPARISON: 02/03/2023 FINDINGS: Limitations: None. Lung bases: There is consolidation in the dependent lower lobes left greater than right. Pleural space: There are small layering bilateral pleural effusions. Heart: Cardiomegaly. Mediastinum: No abnormality noted. ABDOMEN: Liver: Lack of intravenous contrast limits detection of some masses. No abnormality noted. Gallbladder and bile ducts: No calcified stones or surrounding fluid. No ductal dilation. Pancreas: No pancreatic mass, calcification, inflammation or ductal dilation noted. Spleen: No acute abnormality noted. Adrenals: No acute abnormality noted. Kidneys and ureters: Stable bilateral renal cysts most of which clearly appear benign. Others are hyperdense and unchanged. Stomach and bowel: The stomach is collapsed and cannot be optimally assessed. Multiple small and large bowel loops are mildly dilated with fluid and air. Left colonic diverticula noted. Mild thickening of the lateral conal fascia identified which may reflect mild adjacent diverticulitis. No obstructing point. PELVIS: Appendix: Well seen and appears normal. Bladder: Appears normal for the degree of filling. No stones or inflammation. No large mass. Masses may not be detected in the absence of opacification. Reproductive: No abnormalities noted. ABDOMEN and PELVIS: Intraperitoneal space: No free air. No significant fluid collection. Bones/joints: No acute changes. Posterior L4-S1 fusion hardware well-seated and intact. Diffuse degenerative changes. Soft tissues: No acute abnormality noted. Vasculature: Stable atherosclerosis of the aorta with mild aneurysm of the infrarenal segment to 3.3 cm. No hemorrhage. Lymph nodes: No pathologically enlarged lymph nodes. IMPRESSION: 1. Ileus with findings suggestive of mild descending colonic acute diverticulitis. 2. Small layering pleural effusions and compressive bilateral lower lobe consolidation. 3. Stable 3.3 cm infrarenal abdominal aortic aneurysm without hemorrhage. ACR White Paper guidelines (Constance, et al. JACR 2013; 10(10):789-94) suggest abdomen/pelvis CT or MR imaging follow-up in 3 years. ACT 112: N/A Electronically signed by Michelle Fields 09-24-2025 5:21 PM Chest X-Ray 09/26/25 16:46 EXAM: Radiograph of the Chest 1 View INDICATION: Follow-up TECHNIQUE: Frontal view of the chest. COMPARISON: 09/24/2025 FINDINGS: Lungs and pleural spaces: Significant increase airspace consolidation in the left lung and increased small left pleural effusion. Stable airspace disease right lung. Stable generalized pulmonary vascular congestion. No pneumothorax. Heart: Stable enlarged shadow. Mediastinum: Normal contour. Bones/joints: No fracture, erosion or dislocation. Soft tissues: No abnormality noted. No radiopaque foreign body noted. Tubes, lines and devices: Right internal jugular central venous port tip proximal right atrium. Upper abdomen: No abnormality noted. IMPRESSION: Worsening left airspace disease and pleural effusion concerning for pneumonia. Component of mucous plugging is considered. Underlying CHF present. ACT 112: N/A Electronically signed by Michelle Fields 09-26-2025 7:17 PM Diagnostic Findings CBC 09/27/25 Range/Units 04:09 WBC 10.83 H (4.8-10.8) K/ul RBC 2.72 L (4.70-6.10) M/uL Hgb 9.9 L (14.0-18.0) g/dL Hct 30.7 L (42.0-52.0) % Plt Count 50 L (130-400) K/uL Neut # (Auto) 9.31 H (1.40-6.50) K/uL Lymph # (Auto) 0.77 L (1.20-3.40) K/uL [place] # (Auto) 0.57 (0.11-0.59) K/uL Eos # (Auto) 0.02 (0.00-0.50) K/uL Baso # (Auto) 0.07 (0.00-0.20) K/uL Comprehensive Metabolic Panel 09/27/25 Range/Units 04:09 Sodium 143 (136-145) mmol/L Potassium 3.1 L (3.5-5.1) mmol/L Chloride 113 H (98-107) mmol/L Carbon Dioxide 24 (21-32) mmol/L BUN 32 H (6-23) mg/dl Creatinine 2.25 H (0.6-1.4) mg/dl Glucose 124 H (70-99(Fasting)) mg/dl Calcium 7.3 L (8.6-10.3) mg/dl Intake and Output 09/27/25 09/27/25 09/27/25 06:59 14:59 22:59 Intake Total 237.6 / 3546.222 932.335 / 976.538 44.203 / 976.538 Output Total 425 / 1259 801 / 801 Balance -187.4 / 2287.222 131.335 / 175.538 44.203 / 175.538 Intake: IV 237.6 / 2946.222 532.335 / 576.538 44.203 / 576.538 Amiodarone / D5w 360 mg In 200 272.210 / 272.210 ml @ 0.5 MG/MIN 16.667 mls/hr IV .Q12H [facility] Rx#:[id number] Calcium Gluconate 1,000 mg In 76 / 76 60 ml @ 240 mls/hr IV Q15M [facility] Rx#:[id number] Phenylephrine/Nss 100 mg In 250 137.6 / 399.889 84.125 / 128.328 44.203 / 128.328 ml @ 1.3 MCG/KG/MIN 14.898 mls /hr IV .[id number] [facility] Rx#: [id number] Piperacillin/Tazobactam 4.5 gm 100 / 200 100 / 100 In 100 ml @ 25 mls/hr IV Q8H [facility] Rx#:[id number] Oral 400 / 400 Output: Urine Amount (Catheter) 425 / 1255 800 / 800 Coude 425 / 1255 800 / 800 # Bowel Movements Other: Weight 80.2 kg Weight Measurement Method Built in [facility] Medications Administered Home Medications Medication Instructions Recorded Confirmed Last Taken atorvastatin 80 mg tablet 80 mg PO DAILY 04/22/20 09/24/25 08/15/25 cholecalciferol (vitamin D3) 25 1,000 unit PO QAM 04/22/20 09/24/25 08/15/25 mcg (1,000 unit) capsule (Vitamin D3) epinephrine 0.3 mg/0.3 mL 0.3 mg IM DIRECTED PRN Allergic 04/22/20 09/24/25 Unknown injection, auto-injector Reaction nitroglycerin 0.4 mg sublingual 0.4 mg sublingual DIRECTED PRN 04/22/20 09/24/25 Unknown tablet (Nitrostat) Chest Pain tamsulosin 0.4 mg capsule 0.4 mg PO QAM 04/22/20 09/24/25 08/15/25 lisinopril 2.5 mg tablet 2.5 mg PO QAM 02/03/23 09/24/25 08/15/25 albuterol sulfate 90 mcg/actuation 2 inh inhalation Q4H PRN shortness 05/18/25 09/24/25 05/17/25 aerosol inhaler of breath or wheezing budesonide 160 mcg-glycopyr 9 2 inh inhalation BID 05/18/25 09/24/25 08/15/25 mcg-formot 4.8 mcg/actuation HFA inhaler (Breztri Aerosphere) folic acid 1 mg tablet 1 mg PO QAM 05/18/25 09/24/25 08/15/25 prochlorperazine maleate 10 mg 10 mg PO Q6H PRN Nausea And 05/18/25 09/24/25 Unknown tablet Vomiting trazodone 50 mg tablet 50 mg PO HS 05/18/25 09/24/25 08/14/25 pantoprazole 40 mg tablet,delayed 40 mg PO BID #60 tabs 05/21/25 09/24/25 08/15/25 release B-complex with vitamin C 1 cap PO QAM 06/21/25 09/24/25 08/15/25 aspirin 81 mg tablet,delayed 81 mg PO QAM 06/21/25 09/24/25 08/15/25 release dexamethasone 4 mg tablet 8 mg PO DIRECTED PRN DAYS 2,3,4 06/21/25 09/24/25 06/26/25 OF CHEMO lidocaine-prilocaine 2.5 %-2.5 % 1 applic topical DIRECTED PRN 06/21/25 09/24/25 Unknown topical cream ACCESSING MEDIPORT loperamide 1 mg/7.5 mL oral liquid 0.5 mg PO DAILY PRN Diarrhea 06/21/25 09/24/25 Unknown (Imodium A-D) loratadine 10 mg tablet (Claritin) 10 mg PO DAILY PRN START DAY OF 06/21/25 09/24/25 Unknown CHEMO X 5 DAYS. metoprolol succinate 50 mg 50 mg PO BID 06/21/25 09/24/25 08/15/25 tablet,extended release 24 hr ondansetron HCl 8 mg tablet 8 mg PO Q8H PRN NAUSEA/VOMITING 06/21/25 09/24/25 Unknown oxycodone 5 mg tablet 5 mg PO Q4H PRN pain #10 tabs 06/23/25 09/24/25 Unknown L.acidop,casei,lactis,rham-B.lact,zac 1 cap PO QAM 08/15/25 09/24/25 08/15/25 625 mg (10 billion cell) capsule (Advanced Probiotic) Active Medications Generic Name Dose Route Start Last Admin Trade Name Freq PRN Reason Stop Dose Admin Acetylcysteine 2 ml 09/27/25 11:00 09/27/25 14:53 Acetylcysteine 10% Inhal Soln 4 Ml Dispensed By Resp. INH 10/27/25 10:59 2 ml QIDR CHANELLE Administration Albuterol 3 ml 09/27/25 11:00 09/27/25 14:53 Albut/Ipratrop 3mg/0.5mg Neb 3 Ml Vial NEB 10/27/25 10:59 3 ml QIDR CHANELLE Administration Protocol Amiodarone HCl 200 mg 09/27/25 10:30 09/27/25 12:03 Amiodarone 200 Mg Tab PO 10/27/25 10:29 200 mg BIDM CHANELLE Administration Atorvastatin Calcium 80 mg 09/25/25 09:00 09/27/25 09:24 Atorvastatin 40 Mg Tab PO 10/25/25 08:59 80 mg DAILY CHANELLE Administration Fluticasone Furoate 1 puffs 09/24/25 21:45 09/27/25 09:23 Fluticasone Furoate 200mcg 14 Puffs/Inhaler INH 10/24/25 21:44 1 puffs DAILY CHANELLE Administration Folic Acid 1 mg 09/25/25 09:00 09/27/25 09:24 Folic Acid 1 Mg Tab PO 10/25/25 08:59 1 mg QAM CHANELLE Administration Phenylephrine HCl 100 mg in 250 mls @ 12.606 mls/hr 09/26/25 09:45 09/27/25 15:00 Phenylephrine/Nss IV 10/26/25 09:44 1.1 mcg/kg/min .[id number] CHANELLE 12.6 mls/hr Titration Protocol 1.1 MCG/KG/MIN Piperacillin Sod/Tazobactam Sod 4.5 gm in 100 mls @ 25 mls/hr 09/26/25 13:00 09/27/25 12:03 Zosyn IV 09/29/25 23:59 25 mls/hr Q8H CHANELLE Administration Protocol Lactobacillus Acidophilus 1,250 mg 09/25/25 09:00 09/27/25 09:23 Advanced Probiotic 625 Mg Capsule PO 10/25/25 08:59 1,250 mg QAM CHANELLE Administration Metoprolol Succinate 50 mg 09/24/25 21:45 09/24/25 22:23 Metoprolol Succ 50mg Ext Rel Tab PO 10/24/25 21:44 50 mg BID CHANELLE Administration Midodrine 5 mg 09/27/25 12:00 09/27/25 12:03 Midodrine Hcl 2.5 Mg Tab PO 10/27/25 11:59 5 mg TID@0800,1200,1700 CHANELLE Administration Pantoprazole Sodium 40 mg 09/24/25 21:00 09/27/25 09:24 Pantoprazole 40 Mg Tab PO 10/24/25 20:59 40 mg BID CHANELLE Administration Tamsulosin HCl 0.4 mg 09/25/25 09:00 09/27/25 09:54 Tamsulosin Hcl 0.4 Mg Cap PO 10/25/25 08:59 Not Given QAM CHANELLE Umeclidinium/Vilanterol 1 puffs 09/24/25 21:45 09/27/25 09:23 Umeclidinium/Vilanterol 62.5/25mcg 7 Puffs/Inhaler INH 10/24/25 21:44 1 pu ffs DAILY CHANELLE Administration Vitamin B Complex 1 tab 09/25/25 09:00 09/27/25 09:24 Vitamin B Complex Tab PO 10/25/25 08:59 1 tab QAM CHANELLE Administration Vitamin D 25 mcg 09/25/25 09:00 09/27/25 09:24 Cholecalciferol 25 Mcg (1000 Units) Tab PO 10/25/25 08:59 25 mcg QAM CHANELLE Administration PG Care Time/CCT Total # of Minutes Spent Total Time Spent with Patient: Total time spent is greater than 50% in coordination of care (as documented) at patient's floor/unit and/or counseling patient: Coding Level of Care Code 81167 SUB INP/OBS CARE 3/50MIN Diagnoses Demand ischemia I24.89 SVT (supraventricular tachycardia) I47.10 ANDRES (acute kidney injury) N17.9 Hypotension I95.9 Paroxysmal atrial flutter I48.92 ASCVD (arteriosclerotic cardiovascular disease) I25.10 Elevated troponin R79.89 Septic shock A41.9; R65.21
[2025-09-28 05:57] LABS: Hematocrit (blood only) 27.4 % (42.0-52.0); Hemoglobin 8.8 g/dL (14.0-18.0); Immature Granulocytes # (auto) 0.06 K/uL (0.01-0.20); Immature Granulocytes % (auto) 0.7 %; Macrocytosis Present; Mean Corpuscular Hemoglobin 36.5 pg (25.0-34.0); Mean Corpuscular Volume 113.7 fL (80.0-100.0); Platelet Count 44 K/uL (130-400); Polychromasia 1+; RDW Standard Deviation 64.4 fL (36.4-46.3); Red Blood Count 2.41 M/uL (4.70-6.10); Toxic Granulation 1+; White Blood Count 8.78 K/ul (4.8-10.8)
[2025-09-28 05:59] LABS: Anion Gap 5.0 (3-11); Blood Urea Nitrogen 25.0 mg/dl (6-23); Calcium 7.0 mg/dl (8.6-10.3); Carbon Dioxide 25.0 mmol/L (21-32); Chloride 115.0 mmol/L (98-107); Creatinine Clr Calc Pharmacy 28.0 ml/min; Glucose 106.0 mg/dl (70-99(Fasting)); Magnesium 2.0 mg/dl (1.7-2.4); Potassium 3.4 mmol/L (3.5-5.1); Sodium 145.0 mmol/L (136-145)
[2025-09-28] MEDS: POTASSIUM CHLORIDE CRTAB 20 MEQ TABCR PO STA ×4 (06:54→20:09)
[2025-09-28] MEDS: MIDODRINE HCL 2.5 MG TAB PO SCH (07:54)
[2025-09-28] MEDS ORDERED: MIDODRINE HCL 10 MG TAB PO SCH (08:00)
--- NOTE | 2025-09-28 09:33 | Critical Care Progress Note ---
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 The patient follows with Dr. Everett at [facility] oncology. He received 6 cycles of pemetrexed plus carboplatin and Keytruda. Continued on maintenance with pemetrexed and Keytruda. Then transition to docetaxel and ramicurimab. Last therapy was on 09/17/2025. The patient presented to the hospital 09/24/2025 with a complaint of nausea, vomiting and diarrhea for 3 days duration. He was unable to tolerate p.o. Also worsening shortness of breath, does not normally wear oxygen at home. In the emergency department the patient was found to be hypoxic. Imaging of the chest was concerning for pulmonary edema with pleural effusions. BioFire was negative. Required 8 L on admission. Imaging of the abdomen showed ileus and mild descending colonic diverticulitis. The patient was in A-fib with RVR on presentation. Troponins were elevated as well as BNP. He was in ANDRES as well. General surgery and cardiology were both consulted on admission. The patient received fluid resuscitation with 2-1/2 L of fluid. Trial of Lopressor was done however the patient had worsening hypotension and continued to go in and out of A-fib. The patient was transferred to the ICU for pressor support. He was initiated on amiodarone and phenylephrine. He was continued on oxygen supplementation. No further fluid resuscitation was given. Reason Critically Ill: Arrhythmia, A-fib RVR and SVT Shock state, septic versus cardiogenic in setting of uncontrolled arrhythmias Elevated troponin Heart failure with moderately reduced ejection fraction Acute hypoxic respiratory failure Pulmonary edema and pleural effusions ANDRES on CKD Ileus Diverticulitis Metastatic carcinoma with recent chemotherapy and immunotherapy Thrombocytopenia Neuro: Awake and alert. No neurologic deficits at this time. Cardiac: Shock state, likely hypovolemic versus septic Arrhythmia, A-fib RVR and SVT Elevated troponin Heart failure with moderately reduced ejection fraction Not currently on anticoagulation, has thrombocytopenia patient deferred anticoagulation previously. On amiodarone infusion, received bolus. Troponins are downtrending. Echocardiogram was performed. Moderately reduced systolic function with an EF of 40 to 45% and global hypokinesis. Grade 2 diastolic dysfunction. Normal RV size and function. Mild aortic stenosis, mild to moderate pulmonic regurg, mild MR and TR. Patient received metoprolol 12.5 mg, also got a one-time dose of digoxin due to uncontrolled heart rate. Was on amiodarone infusion, transition to p.o. amiodarone 200 mg twice daily by cardiology. Heart rate is in the 60s, sometimes dropping into the 50s, we have not started a beta-abida. Phenylephrine was weaned off after midodrine was added yesterday. Hopefully midodrine can be slowly tapered off as he continues to improve. Received 2.5 L fluid resuscitation with crystalloid on admission, got 500 cc 09/24/2025 without significant improvement in blood pressure. We will start the resuscitation with IV Lasix. Monitor electrolytes closely and replace as indicated. Cortisol level is borderline 18, got a one-time dose of 100 mg of hydroc ortisone without significant improvement in blood pressure. Cardiology was consulted, appreciate assistance with case. Respiratory: Acute hypoxic respite failure Underlying COPD Pulmonary edema with bilateral pleural effusions (left Thora 08/16/2025, appears transudative with low protein and LDH. Negative cultures) CT imaging was reviewed by myself small to moderate bilateral pleural effusions appreciated. Interlobular septal thickening suggesting pulmonary edema. There is also what appears to be an infiltrate, most appreciated on the left. Patient has been started on Zosyn and azithromycin. I agree with this. Zosyn is supposed to end tomorrow. Continue DuoNebs. Respiratory BioFire was negative. Procalcitonin 1.13 -->0.66. MRSA nares negative. Continue oxygen supplementation, wean as tolerated. Diuresing with Lasix 40 IV twice daily. Patient has a weak cough, has been laying in bed a lot. Added pulmonary toilet today. Needs to get out of bed. Did POCUS today, has B-lines bilaterally and pleural effusions. Do not appear complicated at this time. Will hold off on thoracentesis. GI: Ileus Diverticulitis Diarrhea Patient has been started on Zosyn. I agree with this. End date is tomorrow. Protonix 40 twice daily. Diarrhea has resolved. Advancing to a regular diet. RENAL/LYTES: ANDRES on CKD Electrolyte disturbance Received 3 L crystalloid resuscitation. ANDRES is improving. Making good urine. Monitor and replace electrolytes, given KCl, K-Phos and calcium today. : BPH Urinary retention Required straight cath, continue to retain. Valenzuela catheter placed. Will stop Flomax given hypotension. Keep Valenzuela. ENDO: Blood glucose acceptable. A1c slightly elevated at 5.9. TSH okay. Cortisol is borderline 18.9, got 100 mg dose of hydrocortisone, did not respond to this so it was not continued. HEME: Metastatic carcinoma on chemo and immunotherapy Thrombocytopenia Place SCDs, holding heparin. Presentation could be cardiotoxicity given recent chemotherapy. Could also be immuno therapy related. ID: Shock, hypovolemic versus septic Patient is on Zosyn and azithromycin, I agree with this. Blood cultures show no growth to date. Has an infiltrate on CT, Pro-Jd slightly elevated but downtrending. Urine does not look infected. MRSA nares negative. BioFire was negative. Sputum culture is in lab, please continue to follow. Feeding: Regular Fluids: None Analgesia: Oxy Activity: Up to chair, please out of bed is much as possible. Thromboprophylaxis: SCD Ulcer prophylaxis: Pantoprazole Glycemic control: Not indicated Bowels: Diarrhea has resolved, may require bowel regimen. Indwelling catheters: PIV Antibiotics: Zosyn Plan: Patient is clinically improved. May transfer out of ICU. Midodrine was started yesterday, hopefully can be titrated off as he continues to improve. I started Lasix today, he has some electrolyte disturbances that need to continue to be followed and replaced. Ideally pleural effusions and hypoxia will improve with Lasix as he has B-lines and bilateral pleural effusions. Also evidence of pneumonia on imaging, he has been on appropriate antibiotics, sputum cultures pending. Case was discussed with bedside RN. Case was discussed with primary hospitalist. I have personally spent 45 minutes of critical care time in the direct management of this patient. This is a life/limb threatening event. This includes time spent evaluating patient, direct bedside care, chart review, placing orders, interpretation of diagnostic studies, discussion with consultants, patient, and family members, as well as other required patient management activities. This time is exclusive of all separately billable procedures, and teaching time and separate from and in addition to any other critical care service time. Admission and Anticipated Discharge Date Admission Date: September 24, 2025 Subjective Past 24-hour events: Off phenylephrine drip. Midodrine was started yesterday. Renal function improving. He has not had any further episodes of diarrhea. Still requiring significant oxygen. He spends most of the time laying in bed however. Did produce a sputum culture yesterday, this showed many WBCs and gram-positive cocci. Patient is on Zosyn. Final cultures pending. Had some episodes of SVT. Cardiology switched amiodarone to oral 200 twice daily. Rounding: Patient is lying in bed this morning. On 8 L via nasal cannula. Sat probe is not picking up, it is on his forehead and has a very poor pleth. Says that overall he is feeling good. No more diarrhea. No abdominal pain. Swiki-ja-anbi ultrasound was performed at bedside. He does have bilateral pleural effusions, right is slightly larger than left. Both are free-flowing. Do not appear complicated. Intake: 4101 mL Output: 1551 mL Net: -149 mL Mechanical ventilation: None, on nasal cannula with 8 L, saturation is fluctuating randomly between 92 and 99%. Feeding: Full liquid, will advance to regular diet today. IV infusions: None Indwelling catheters: Valenzuela catheter, peripheral IV, Mediport. Laboratory: CBC: Hemoglobin 8.8, WBC 8.7, platelet 44 Chemistry: Sodium 145, potassium 3.4 (replaced), chloride 115, bicarb 25, BUN 25, creatinine 2.17, glucose 106, calcium 7.0 magnesium 2.0 ABG: None Review of Systems Review of Systems: Negative except as in HPI. Physical Exam Physical Exam: Physical examination: General: Well-appearing, well-nourished and not in acute distress. HEENT: Normocephalic, atraumatic. Extraocular movements intact. Sclera are nonicteric. No JVD appreciated. Skin: Warm and dry. No rashes appreciated. No jaundice appreciated. Cardiovascular: Heart is a regular rate and rhythm. No murmurs appreciated on my exam. Lungs: Coarse with crackles, diminished at bases, wheezing. On nasal cannula. Nontachypneic. Saturation 92-99%. POCUS shows B-lines bilaterally. Bilateral pleural effusions, right greater than left. Do not appear complicated or loculated at this time. Abdomen: Nondistended, nontender to palpation. No masses appreciated. Musculoskeletal: Normal muscle mass and tone. No gross joint deformity abnormalities. No effusions appreciated. Neurologic: Awake and alert, oriented. CN II through XII are grossly intact. S peech is fluent. Nonfocal exam. Psychiatric: Appropriate cooperative during my exam. Results & Data Results & Data Vital Signs (Past 12 Hours) Vital Signs Pulse Pulse Resp BP Pulse Ox O2 Del Method O2 Flow Rate 09/28/25 07:35 High Flow Nasal Cannula 8 09/28/25 07:30 73 18 90 Nasal Cannula 9 09/28/25 07:00 67 17 90 09/28/25 07:00 111/54 L 09/28/25 06:30 72 18 90 09/28/25 06:30 106/52 L 09/28/25 06:00 86/40 L 09/28/25 06:00 82 18 87 L 09/28/25 05:30 105/49 L 09/28/25 05:30 67 17 85 L 09/28/25 05:00 68 19 91 09/28/25 05:00 102/54 L 09/28/25 04:30 72 19 90 09/28/25 04:30 103/52 L 09/28/25 04:00 101/69 09/28/25 04:00 72 18 90 09/28/25 03:30 110/50 L 09/28/25 03:30 68 16 87 L 09/28/25 03:01 109/51 L 09/28/25 02:30 109/52 L 09/28/25 02:30 71 21 92 09/28/25 02:21 69 20 94 09/28/25 02:12 72 23 93 09/28/25 02:00 98/61 L 09/28/25 02:00 72 20 92 09/28/25 01:51 70 19 91 09/28/25 01:42 71 19 91 09/28/25 01:30 71 20 89 L 09/28/25 01:21 70 20 92 09/28/25 01:12 77 22 81 L 09/28/25 01:01 112/51 L 09/28/25 01:00 72 22 91 09/28/25 00:51 72 19 91 09/28/25 00:42 72 20 93 09/28/25 00:30 114/56 L 09/28/25 00:30 73 22 92 09/28/25 00:21 72 21 92 09/28/25 00:12 73 23 94 09/28/25 00:00 107/63 09/28/25 00:00 73 19 90 09/27/25 23:51 77 27 H 86 L 09/27/25 23:42 74 25 H 88 L 09/27/25 23:30 93/50 L Coding [place] [address] SUB INP/OBS CARE 3/50MIN Patient Type Established History Detailed Exam Detailed Medical Decision Making Moderate Complexity Diagnoses Dysrhythmia I49.9 Shock R57.9 Hypoxia R09.02 Elevated troponin R79.89 Acute kidney injury superimposed on stage 3a chronic kidney disease N17.9; N18.31 Diverticulitis K57.92 Ileus K56.7 Acute hypoxic respiratory failure J96.01
--- NOTE | 2025-09-28 10:01 | XRay Report ---
XR chest 1V portable CLINICAL HISTORY: f/u COMPARISON STUDY: 09/26/2025 FINDINGS: Stable right chest port. Stable cardiomegaly with pulmonary vascular congestion. Stable den se opacity at the left mid and lower lung with obscuration of the left hemidiaphragm. Stable mild haz y opacity at the right lung base. No pneumothorax seen. IMPRESSION: Stable exam. ACT 112: Negative or not required by law. Electronically signed by: Ronni Suarez M.D. 09/28/2025 10:00 AM
[2025-09-28] MEDS: FUROSEMIDE 40 MG/4 ML VIAL IV SCH (10:31)
[2025-09-28] MEDS: CALCIUM 600MG + VIT D 400 IU TAB PO SCH (10:31)
--- NOTE | 2025-09-28 13:26 | Cardiology Progress Note ---
Date of Service September 28, 2025 Assessment & Plan (1) Demand ischemia: (2) SVT (supraventricular tachycardia): (3) ANDRES (acute kidney injury): (4) Hypotension: (5) Paroxysmal atrial flutter: (6) ASCVD (arteriosclerotic cardiovascular disease): (7) Elevated troponin: (8) Septic shock: Plan 80-year-old male with metastatic malignancy with unknown primary (previously treated with pemetrexed and Keytruda) who developed nausea, vomiting, diarrhea, poor oral intake, and progressive weakness after initiation of Ramucirumab (Cyramza) and docetaxel (Taxotere) on September 17, 2025. Patient ultimately presented to the [facility] ER on 09/24/2025 hypoxic (84%), hypotensive (74/54), and tachycardic (150 bpm). Laboratory work with acute kidney injury (creatinine 3.25 mg/dL). CBC with pancytopenia, marked thrombocytopenia (40K). EKG revealed narrow complex tachycardia consistent with SVT/PAT, possible atrial flutter with diffuse STT wave depression. Patient asymptomatic in regards to tachypalpitations. High sensitivity troponin elevated (611.8 -> 679.6 -> 635.7 - > 535.6 pg/mL), representing demand ischemia in the setting of critical illness. Echocardiography with moderate reduction in LV systolic function (EF 40-45%) without regional wall motion abnormalities. Patient asymptomatic in regards to overt angina. Ongoing hypotension noted. Suspect adverse reactions to chemotherapy, cardiovascular toxicity, and hypovolemic shock. Marked thrombocytopenia precludes anticoagulation. No more diarrhea IMP: Hypovolemic shock - better, off pressors Post chemo sequelae ANDRES on CKD - slow improvement PAF with RVR -> NSR Metastatic malignancy Pleural Effusion Pancytopenia - some improvement, however with persistent thrombocytopenia Abn Troponin - likely due to demand ischemia and not indicative of Type I OK Moderate LV systolic dysfunction Hypokalemia - persistent -> defer to communications manager RECOMMENDATIONS: would avoid fluid boluses unless urgently/emergently indicated due to LV systolic dysfunction may use Dig for rate control -> keep K between 4 and 4.5 and Mg between 2 and 2.5 when on Digoxin may use diuretics prn if indicated consider thoracentesis if significant pleural effusion is persistent Hold off on all anti-HTN meds until BP allows Anticoagulation if no contraindication and when cleared by Hem-Onc Hem-Onc consult correct and f/u electrolytes f/u renal function avoid hypovolemia keep patient euvolemic DVT prophylaxis strict I&Os Admission and Anticipated Discharge Date Admission Date: September 24, 2025 Subjective Patient on exam is lying in bed in NAD; no c/o cp, sob, palpitations, dizziness, LOC, cough, fever, nausea, vomiting, abdominal pain, urinary or bowel problem problems feels better; off pressor; iv amiodarone changed to po amiodarone Review of Systems Review of Systems: as per hpi Physical Exam Physical Exam: General: Resting comfortable, chronically ill appearing. Skin: Pallor HENT: Normocephalic. Atraumatic. Eyes: PER. Conjunctiva pink, sclera pale. Neck: No JVD Heart: Regular at 60 bpm. Soft systolic murmur. No rub. Lungs: Decreased BS B/L bases Scattered rhonchi. Abdomen: +BS. Soft. Nontender. No masses or organomegaly. Extremities: No edema. Limited neurological examination is without focal deficits. Pulses: radial=2/4, posterior tibial=1-2/4 on the left and 2/4 on the right Results & Data Vital Signs (Past 12 Hours) Vital Signs Temp 36.9 C 09/28/25 12:18 Pulse 80 09/28/25 12:00 Resp 23 09/28/25 12:00 BP 98/48 L 09/28/25 12:00 Pulse Ox 92 09/28/25 12:00 O2 Del Method Nasal Cannula 09/28/25 10:50 O2 Flow Rate 7 09/28/25 10:50 Intake & Output 09/27/25 09/28/25 09/28/25 18:59 06:59 18:59 Intake Total 1596.138 / 1708.605 112.467 / 1708.605 100 / 100 Output Total 1151 / 1551 400 / 1551 Balance 445.138 / 157.605 -287.533 / 157.605 100 / 100 Weight 80.1 kg Intake: IV 1196.138 / 1308.605 112.467 / 1308.605 100 / 100 Amiodarone / D5w 360 mg In 200 272.210 / 272.210 ml @ 0.5 MG/MIN 16.667 mls/hr IV .Q12H [facility] Rx#:[id number] Calcium Gluconate 1,000 mg In 76 / 76 60 ml @ 240 mls/hr IV Q15M [facility] Rx#:[id number] Phenylephrine/Nss 100 mg In 250 140.928 / 153.395 12.467 / 153.395 ml @ 0 MCG/KG/MIN IV .Q0M [facility] Rx#:[id number] Piperacillin/Tazobactam 4.5 gm 200 / 300 100 / 300 100 / 100 In 100 ml @ 25 mls/hr IV Q8H [facility] Rx#:[id number] Potassium Phosphate 21 mmol In 507 / 507 Sodium Chloride 0.9% 500 ml @ 88 mls/hr IV ONE ONE Rx#: [id number] Oral 400 / 400 Output: Urine Amount (Catheter) 1150 / 1550 400 / 1550 Coude 1150 / 1550 400 / 1550 # Bowel Movements Other: Weight Measurement Method Built in [facility] Vital Signs Temp Pulse Pulse Resp BP Pulse Ox O2 Del Method 09/28/25 12:18 36.9 C 09/28/25 12:00 98/48 L 09/28/25 12:00 98/48 L 09/28/25 12:00 98/48 L 09/28/25 12:00 98/48 L 09/28/25 12:00 98/48 L 09/28/25 12:00 80 23 92 09/28/25 11:30 85 31 H 93 09/28/25 11:30 112/52 L 09/28/25 11:30 112/52 L 09/28/25 11:30 112/52 L 09/28/25 11:30 112/52 L 09/28/25 11:30 112/52 L 09/28/25 11:00 73 23 100 09/28/25 11:00 105/51 L 09/28/25 11:00 105/51 L 09/28/25 11:00 105/51 L 09/28/25 11:00 105/51 L 09/28/25 11:00 105/51 L 09/28/25 10:50 82 24 100 Nasal Cannula 09/28/25 10:30 111/45 L 09/28/25 10:30 111/45 L 09/28/25 10:30 111/45 L 09/28/25 10:30 111/45 L 09/28/25 10:30 111/45 L 09/28/25 10:30 77 20 91 09/28/25 10:00 101/48 L 09/28/25 10:00 101/48 L 09/28/25 10:00 101/48 L 09/28/25 10:00 101/48 L 09/28/25 10:00 101/48 L 09/28/25 10:00 74 24 95 09/28/25 09:30 64 20 92 09/28/25 09:30 112/42 L 09/28/25 09:30 112/42 L 09/28/25 09:30 112/42 L 09/28/25 09:30 112/42 L 09/28/25 09:30 112/42 L 09/28/25 09:15 76 23 95 09/28/25 09:00 102/45 L 09/28/25 09:00 102/45 L 09/28/25 09:00 102/45 L 09/28/25 09:00 102/45 L 09/28/25 09:00 102/45 L 09/28/25 09:00 71 23 95 09/28/25 08:45 73 25 H 94 09/28/25 08:30 101/53 L 09/28/25 08:30 101/53 L 09/28/25 08:30 101/53 L 09/28/25 08:30 101/53 L 09/28/25 08:30 101/53 L 09/28/25 08:30 72 23 95 09/28/25 08:15 75 21 94 09/28/25 08:00 108/56 L 09/28/25 08:00 108/56 L 09/28/25 08:00 108/56 L 09/28/25 08:00 108/56 L 09/28/25 08:00 108/56 L 09/28/25 08:00 71 26 H 90 09/28/25 07:45 82 29 H 95 09/28/25 07:35 High Flow Nasal Cannula 09/28/25 07:31 36.8 C 09/28/25 07:30 111/52 L 09/28/25 07:30 111/52 L 09/28/25 07:30 111/52 L 09/28/25 07:30 111/52 L 09/28/25 07:30 111/52 L 09/28/25 07:30 78 22 95 Nasal Cannula 09/28/25 07:30 73 18 90 Nasal Cannula 09/28/25 07:15 70 15 95 09/28/25 07:00 67 17 90 09/28/25 07:00 111/54 L 09/28/25 06:30 72 18 90 09/28/25 06:30 106/52 L 09/28/25 06:00 86/40 L 09/28/25 06:00 82 18 87 L 09/28/25 05:30 105/49 L 09/28/25 05:30 67 17 85 L 09/28/25 05:00 68 19 91 09/28/25 05:00 102/54 L 09/28/25 04:30 72 19 90 09/28/25 04:30 103/52 L 09/28/25 04:00 101/69 09/28/25 04:00 72 18 90 09/28/25 03:30 110/50 L 09/28/25 03:30 68 16 87 L 09/28/25 03:01 109/51 L 09/28/25 02:30 109/52 L 09/28/25 02:30 71 21 92 09/28/25 02:21 69 20 94 09/28/25 02:12 72 23 93 09/28/25 02:00 98/61 L 09/28/25 02:00 72 20 92 09/28/25 01:51 70 19 91 09/28/25 01:42 71 19 91 09/28/25 01:30 71 20 89 L 09/28/25 01:21 70 20 92 O2 Flow Rate 09/28/25 12:18 09/28/25 12:00 09/28/25 12:00 09/28/25 12:00 09/28/25 12:00 09/28/25 12:00 09/28/25 12:00 09/28/25 11:30 09/28/25 11:30 09/28/25 11:30 09/28/25 11:30 09/28/25 11:30 09/28/25 11:30 09/28/25 11:00 09/28/25 11:00 09/28/25 11:00 09/28/25 11:00 09/28/25 11:00 09/28/25 11:00 09/28/25 10:50 7 09/28/25 10:30 09/28/25 10:30 09/28/25 10:30 09/28/25 10:30 09/28/25 10:30 09/28/25 10:30 09/28/25 10:00 09/28/25 10:00 09/28/25 10:00 09/28/25 10:00 09/28/25 10:00 09/28/25 10:00 09/28/25 09:30 09/28/25 09:30 09/28/25 09:30 09/28/25 09:30 09/28/25 09:30 09/28/25 09:30 09/28/25 09:15 09/28/25 09:00 09/28/25 09:00 09/28/25 09:00 09/28/25 09:00 09/28/25 09:00 09/28/25 09:00 09/28/25 08:45 09/28/25 08:30 09/28/25 08:30 09/28/25 08:30 09/28/25 08:30 09/28/25 08:30 09/28/25 08:30 09/28/25 08:15 09/28/25 08:00 09/28/25 08:00 09/28/25 08:00 09/28/25 08:00 09/28/25 08:00 09/28/25 08:00 09/28/25 07:45 09/28/25 07:35 8 09/28/25 07:31 09/28/25 07:30 09/28/25 07:30 09/28/25 07:30 09/28/25 07:30 09/28/25 07:30 09/28/25 07:30 8 09/28/25 07:30 9 09/28/25 07:15 09/28/25 07:00 09/28/25 07:00 09/28/25 06:30 09/28/25 06:30 09/28/25 06:00 09/28/25 06:00 09/28/25 05:30 09/28/25 05:30 09/28/25 05:00 09/28/25 05:00 09/28/25 04:30 09/28/25 04:30 09/28/25 04:00 09/28/25 04:00 09/28/25 03:30 09/28/25 03:30 09/28/25 03:01 09/28/25 02:30 09/28/25 02:30 09/28/25 02:21 09/28/25 02:12 09/28/25 02:00 09/28/25 02:00 09/28/25 01:51 09/28/25 01:42 09/28/25 01:30 09/28/25 01:21 Laboratory Results Laboratory Results WBC 8.78 K/ul (4.8-10.8) 09/28/25 05:07 RBC 2.41 M/uL (4.70-6.10) L 09/28/25 05:07 Hgb 8.8 g/dL (14.0-18.0) L 09/28/25 05:07 POC Hgb 9.2 g/dl (14.0-18.0) L 09/24/25 14:54 Hct 27.4 % (42.0-52.0) L 09/28/25 05:07 POC Hct 27 % (42-52) L 09/24/25 14:54 MCV 113.7 fL (80.0-100.0) H 09/28/25 05:07 MCH 36.5 pg (25.0-34.0) H 09/28/25 05:07 MCHC 32.1 g/dL (32.0-36.0) 09/28/25 05:07 RDW Std Deviation 64.4 fL (36.4-46.3) H 09/28/25 05:07 RDW Coeff of Ele 15.4 % (11.5-14.5) H 09/28/25 05:07 Plt Count 44 K/uL (130-400) L 09/28/25 05:07 MPV 13.5 fL (9.4-12.4) H 09/28/25 05:07 Immature Gran % (Auto) 0.7 % 09/28/25 05:07 Neut % (Auto) 85.1 % 09/28/25 05:07 Lymph % (Auto) 8.9 % 09/28/25 05:07 Bureau % (Auto) 5.0 % 09/28/25 05:07 Eos % (Auto) 0.1 % 09/28/25 05:07 Baso % (Auto) 0.2 % 09/28/25 05:07 Neut # (Auto) 7.47 K/uL (1.40-6.50) H 09/28/25 05:07 Lymph # (Auto) 0.78 K/uL (1.20-3.40) L 09/28/25 05:07 Bureau # (Auto) 0.44 K/uL (0.11-0.59) 09/28/25 05:07 Eos # (Auto) 0.01 K/uL (0.00-0.50) 09/28/25 05:07 Baso # (Auto) 0.02 K/uL (0.00-0.20) 09/28/25 05:07 Immature Gran # (Auto) 0.06 K/uL (0.01-0.20) 09/28/25 05:07 Absolute Nucleated RBC 0.02 K/uL (0.00-0.12) 09/27/25 04:09 Nucleated RBC % (auto) 0.2 % 09/27/25 04:09 Toxic Granulation 1+ 09/28/25 05:07 Toxic Vacuolation 1+ 09/26/25 04:55 Dohle Bodies 1+ 09/27/25 04:09 Polychromasia 1+ 09/28/25 05:07 Macrocytosis Present 09/28/25 05:07 Target Cells 1+ 09/27/25 04:09 Ovalocytes 1+ 09/27/25 04:09 Echinocytes 2+ 09/28/25 05:07 Acanthocytes (Spur) 2+ 09/27/25 04:09 VBG pH 7.34 (7.36-7.41) L 09/24/25 15:02 VBG pCO2 49 mmHg (38-50) 09/24/25 15:02 VBG pO2 24 mmHg 09/24/25 15:02 VBG HCO3 26 mmol/L 09/24/25 15:02 VBG O2 Saturation < 60.0 % 09/24/25 15:02 VBG Base Excess 0.3 mEq/L 09/24/25 15:02 POC Sodium 142 mmol/L (135-144) 09/24/25 14:54 Sodium 145 mmol/L (136-145) 09/28/25 05:07 POC Potassium 5.0 mmol/L (3.3-5.0) 09/24/25 14:54 Potassium 3.4 mmol/L (3.5-5.1) L 09/28/25 05:07 POC Chloride 106 mmol/L (101-112) 09/24/25 14:54 Chloride 115 mmol/L (98-107) H 09/28/25 05:07 Carbon Dioxide 25 mmol/L (21-32) 09/28/25 05:07 POC Total CO2 24 mmol/L (24-31) 09/24/25 14:54 Anion Gap 5 (3-11) 09/28/25 05:07 POC Anion Gap 18.0 mmol/L (16-25) 09/24/25 14:54 POC BUN 45 mg/dl (7-18) H 09/24/25 14:54 BUN 25 mg/dl (6-23) H 09/28/25 05:07 Creatinine 2.17 mg/dl (0.6-1.4) H 09/28/25 05:07 POC Creatinine 3.3 mg/dl (0.6-1.3) H 09/24/25 14:54 Est Cr Clr Drug Dosing 28.0 ml/min 09/28/25 05:07 eGFR 30.22 09/28/25 05:07 BUN/Creatinine Ratio 11.5 (10-20) 09/28/25 05:07 Glucose 106 mg/dl (70-99(Fasting)) H 09/28/25 05:07 POC Glucose 121 mg/dl (70-99) H 09/28/25 11:29 POC Glucose (other) 104 mg/dl (70-99) H 09/25/25 18:26 Estimat Average Glucose 123 mg/dl 09/25/25 04:39 Hemoglobin A1c 5.9 % (4.5-5.6) H 09/25/25 04:39 Lactate 1.1 mmol/L (0.4-2.0) 09/25/25 08:40 Calcium 7.0 mg/dl (8.6-10.3) L 09/28/25 05:07 POC Ioniz Calcium Anthony 1.06 mmol/l (1.12-1.32) L 09/24/25 14:54 Ionized Calcium 1.06 mmol/L (1.12-1.32) L 09/27/25 04:09 Phosphorus 2.4 mg/dl (2.5-4.9) L 09/27/25 04:09 Magnesium 2.0 mg/dl (1.7-2.4) 09/28/25 05:07 Total Bilirubin 0.7 mg/dl (0.2-1.0) 09/25/25 04:39 Direct Bilirubin 0.5 mg/dl (0-0.2) H 09/24/25 14:51 AST 47 U/L (13-39) H 09/25/25 04:39 ALT 34 U/L (7-52) 09/25/25 04:39 Alkaline Phosphatase 86 U/L (34-104) 09/25/25 04:39 Total Creatine Kinase 46 U/L (30-223) 09/27/25 04:09 Troponin I High Sens 361.7 pg/ml (0-20) H* D 09/25/25 10:54 B-Natriuretic Peptide 1006 pg/ml (0-100) H 09/24/25 14:51 Total Protein 4.9 gm/dl (6.0-8.3) L 09/25/25 04:39 Albumin 2.5 gm/dl (3.4-5.0) L 09/25/25 04:39 Globulin 2.4 gm/dl (2.5-4.0) L 09/25/25 04:39 Albumin/Globulin Ratio 1.0 (0.9-2) 09/25/25 04:39 25-OH Vitamin D Total 60.9 ng/ml (30-100) 09/24/25 19:22 Procalcitonin 0.66 ng/ml (0-0.5) H 09/27/25 06:51 TSH 3.574 uIu/ml (0.300-4.500) 09/26/25 04:55 Random Cortisol Cancelled 09/26/25 04:44 Urine Color Yellow 09/25/25 10:40 Urine Appearance Clear (Clear) 09/25/25 10:40 Urine pH 5.5 (4.5-7.5) 09/25/25 10:40 Ur Specific [place] 1.017 (1.000-1.030) 09/25/25 10:40 Urine Protein 1+ (Negative) H 09/25/25 10:40 Urine Glucose (UA) Negative (Negative) 09/25/25 10:40 Urine Ketones Negative (Negative) 09/25/25 10:40 Urine Blood Trace (Negative) H 09/25/25 10:40 Urine Nitrite Negative (Negative) 09/25/25 10:40 Urine Bilirubin Negative (Negative) 09/25/25 10:40 Urine Urobilinogen Negative (Negative) 09/25/25 10:40 Ur Leukocyte Esterase Negative (Negative) 09/25/25 10:40 Urine WBC (Auto) 0-5 /hpf (0-5) 09/25/25 10:40 Urine RBC (Auto) 0-2 /hpf (0-2) 09/25/25 10:40 U Hyaline Cast (Auto) 3-5 /lpf (0-2) H 09/25/25 10:40 U Epithel Cells (Auto) 6-10 /hpf (0-2) H 09/25/25 10:40 Urine Bacteria (Auto) None Seen (None Seen) 09/25/25 10:40 Hyaline Casts Present /lpf (None Presnt) A 09/25/25 03:56 Granular Casts Present /lpf (None Prsent) A 09/25/25 10:40 Urine Comment 09/25/25 03:56 Nasal Screen MRSA (PCR) Negative (Negative) 09/25/25 Unknown Stl C. cayetanensis PCR Not Detected (NotDetected) 09/26/25 09:30 Stool Rotavirus A PCR Not Detected (NotDetected) 09/26/25 09:30 Stl Adenov F 40/41 PCR Not Detected (NotDetected) 09/26/25 09:30 Stool Astrovirus (PCR) Not Detected (NotDetected) 09/26/25 09:30 Stool Campylobacter PCR Not Detected (NotDetected) 09/26/25 09:30 Stl C. diff Tox B Gene Negative Cdiff Gene (Neg) 09/26/25 09:30 Stl C. diff [id number] NEGATIVE 09/26/25 09:30 Stool Cryptosporidium PCR Not Detected (NotDetected) 09/26/25 09:30 Stl E.coli Shiga Tox PCR Not Detected (NotDetected) 09/26/25 09:30 Stl Enterotoxigenic E PCR Not Detected (NotDetected) 09/26/25 09:30 Stool EPEC (PCR) Not Detected (NotDetected) 09/26/25 09:30 Stool EAEC (PCR) Not Detected (NotDetected) 09/26/25 09:30 Stl E. histolytica PCR Not Detected (NotDetected) 09/26/25 09:30 Stool Giardia Lamblia PCR Not Detected (NotDetected) 09/26/25 09:30 Stool Salmonella PCR Not Detected (NotDetected) 09/26/25 09:30 Stool Sapovirus (PCR) Not Detected (NotDetected) 09/26/25 09:30 Stl P. shigelloides PCR Not Detected (NotDetected) 09/26/25 09:30 Stl Shigella/EIEC PCR Not Detected (NotDetected) 09/26/25 09:30 St Y.enterocolitica PCR Not Detected (NotDetected) 09/26/25 09:30 Stool Vibrio (PCR) Not Detected (NotDetected) 09/26/25 09:30 Stl Vibrio cholerae PCR Not Detected (NotDetected) 09/26/25 09:30 Stl Norovirus GI/GII PCR Not Detected (NotDetected) 09/26/25 09:30 Adenovirus (PCR) Not Detected (NotDetected) 09/24/25 15:02 B. pertussis DNA (PCR) Not Detected (NotDetected) 09/24/25 15:02 B.parapertussis DNA PCR Not Detected (NotDetected) 09/24/25 15:02 C. pneumoniae DNA (PCR) Not Detected (NotDetected) 09/24/25 15:02 Coronavirus OC43 (PCR) Not Detected (NotDetected) 09/24/25 15:02 Coronavirus HKU1 (PCR) Not Detected (NotDetected) 09/24/25 15:02 Coronavirus 229E (PCR) Not Detected (NotDetected) 09/24/25 15:02 SARS-CoV-2 (PCR) Not Detected (NotDetected) 09/24/25 15:02 Coronavirus NL63 (PCR) Not Detected (NotDetected) 09/24/25 15:02 Human Metapneumovir PCR Not Detected (NotDetected) 09/24/25 15:02 Influenza Type A (PCR) Not Detected (NotDetected) 09/24/25 15:02 Influenza Type B (PCR) Not Detected (NotDetected) 09/24/25 15:02 M. pneumoniae (PCR) Not Detected (NotDetected) 09/24/25 15:02 Parainfluenza 1 (PCR) Not Detected (NotDetected) 09/24/25 15:02 Parainfluenza 2 (PCR) Not Detected (NotDetected) 09/24/25 15:02 Parainfluenza 3 (PCR) Not Detected (NotDetected) 09/24/25 15:02 Parainfluenza 4 (PCR) Not Detected (NotDetected) 09/24/25 15:02 RSV (PCR) Not Detected (NotDetected) 09/24/25 15:02 Entero/Rhino (PCR) Not Detected (NotDetected) 09/24/25 15:02 Ref Lab Test Result See Scanned Report 09/25/25 08:40 Impressions Abdomen/Pelvis CT 09/24/25 15:29 EXAM: CT Abdomen and Pelvis Without Intravenous Contrast INDICATION: Vomiting and diarrhea TECHNIQUE: Axial computed tomography images of the abdomen and pelvis without intravenous contrast. Sagittal and coronal reformatted images were created and reviewed. This CT exam was performed using one or more of the following dose reduction techniques: automated exposure control, adjustment of the mA and/or kV according to patient size, and/or use of iterative reconstruction technique. COMPARISON: 02/03/2023 FINDINGS: Limitations: None. Lung bases: There is consolidation in the dependent lower lobes left greater than right. Pleural space: There are small layering bilateral pleural effusions. Heart: Cardiomegaly. Mediastinum: No abnormality noted. ABDOMEN: Liver: Lack of intravenous contrast limits detection of some masses. No abnormality noted. Gallbladder and bile ducts: No calcified stones or surrounding fluid. No ductal dilation. Pancreas: No pancreatic mass, calcification, inflammation or ductal dilation noted. Spleen: No acute abnormality noted. Adrenals: No acute abnormality noted. Kidneys and ureters: Stable bilateral renal cysts most of which clearly appear benign. Others are hyperdense and unchanged. Stomach and bowel: The stomach is collapsed and cannot be optimally assessed. Multiple small and large bowel loops are mildly dilated with fluid and air. Left colonic diverticula noted. Mild thickening of the lateral conal fascia identified which may reflect mild adjacent diverticulitis. No obstructing point. PELVIS: Appendix: Well seen and appears normal. Bladder: Appears normal for the degree of filling. No stones or inflammation. No large mass. Masses may not be detected in the absence of opacification. Reproductive: No abnormalities noted. ABDOMEN and PELVIS: Intraperitoneal space: No free air. No significant fluid collection. Bones/joints: No acute changes. Posterior L4-S1 fusion hardware well-seated and intact. Diffuse degenerative changes. Soft tissues: No acute abnormality noted. Vasculature: Stable atherosclerosis of the aorta with mild aneurysm of the infrarenal segment to 3.3 cm. No hemorrhage. Lymph nodes: No pathologically enlarged lymph nodes. IMPRESSION: 1. Ileus with findings suggestive of mild descending colonic acute diverticulitis. 2. Small layering pleural effusions and compressive bilateral lower lobe consolidation. 3. Stable 3.3 cm infrarenal abdominal aortic aneurysm without hemorrhage. ACR White Paper guidelines (Khosa, et al. JACR 2013; 10(10):789-94) suggest abdomen/pelvis CT or MR imaging follow-up in 3 years. ACT 112: N/A Electronically signed by Michelle Fields 09-24-2025 5:21 PM Chest X-Ray 09/28/25 09:30 XR chest 1V portable CLINICAL HISTORY: f/u COMPARISON STUDY: 09/26/2025 FINDINGS: Stable right chest port. Stable cardiomegaly with pulmonary vascular congestion. Stable dense opacity at the left mid and lower lung with obscuration of the left hemidiaphragm. Stable mild hazy opacity at the right lung base. No pneumothorax seen. IMPRESSION: Stable exam. ACT 112: Negative or not required by law. Electronically signed by: Ronni Suarez M.D. 09/28/2025 10:00 AM Diagnostic Findings CBC 09/28/25 Range/Units 05:07 WBC 8.78 (4.8-10.8) K/ul RBC 2.41 L (4.70-6.10) M/uL Hgb 8.8 L (14.0-18.0) g/dL Hct 27.4 L (42.0-52.0) % Plt Count 44 L (130-400) K/uL Neut # (Auto) 7.47 H (1.40-6.50) K/uL Lymph # (Auto) 0.78 L (1.20-3.40) K/uL Bureau # (Auto) 0.44 (0.11-0.59) K/uL Eos # (Auto) 0.01 (0.00-0.50) K/uL Baso # (Auto) 0.02 (0.00-0.20) K/uL Comprehensive Metabolic Panel 09/28/25 Range/Units 05:07 Sodium 145 (136-145) mmol/L Potassium 3.4 L (3.5-5.1) mmol/L Chloride 115 H (98-107) mmol/L Carbon Dioxide 25 (21-32) mmol/L BUN 25 H (6-23) mg/dl Creatinine 2.17 H (0.6-1.4) mg/dl Glucose 106 H (70-99(Fasting)) mg/dl Calcium 7.0 L (8.6-10.3) mg/dl Intake and Output 09/27/25 09/28/25 09/28/25 22:59 06:59 14:59 Intake Total 667.103 / 1708.605 109.167 / 1708.605 100 / 100 Output Total 500 / 1551 250 / 1551 Balance 167.103 / 157.605 -140.833 / 157.605 100 / 100 Intake: IV 667.103 / 1308.605 109.167 / 1308.605 100 / 100 Phenylephrine/Nss 100 mg In 250 60.103 / 153.395 9.167 / 153.395 ml @ 0 MCG/KG/MIN IV .Q0M [facility] Rx#:[id number] Piperacillin/Tazobactam 4.5 gm 100 / 300 100 / 300 100 / 100 In 100 ml @ 25 mls/hr IV Q8H [facility] Rx#:[id number] Potassium Phosphate 21 mmol In 507 / 507 Sodium Chloride 0.9% 500 ml @ 88 mls/hr IV ONE ONE Rx#: [id number] Output: Urine Amount (Catheter) 500 / 1550 250 / 1550 Coude 500 / 1550 250 / 1550 Other: Weight 80.1 kg Weight Measurement Method Built in [facility] Medications Administered Home Medications Medication Instructions Recorded Confirmed Last Taken atorvastatin 80 mg tablet 80 mg PO DAILY 04/22/20 09/24/25 08/15/25 cholecalciferol (vitamin D3) 25 1,000 unit PO QAM 04/22/20 09/24/25 08/15/25 mcg (1,000 unit) capsule (Vitamin D3) epinephrine 0.3 mg/0.3 mL 0.3 mg IM DIRECTED PRN Allergic 04/22/20 09/24/25 Unknown injection, auto-injector Reaction nitroglycerin 0.4 mg sublingual 0.4 mg sublingual DIRECTED PRN 04/22/20 09/24/25 Unknown tablet (Nitrostat) Chest Pain tamsulosin 0.4 mg capsule 0.4 mg PO QAM 04/22/20 09/24/25 08/15/25 lisinopril 2.5 mg tablet 2.5 mg PO QAM 02/03/23 09/24/25 08/15/25 albuterol sulfate 90 mcg/actuation 2 inh inhalation Q4H PRN shortness 05/18/25 09/24/25 05/17/25 aerosol inhaler of breath or wheezing budesonide 160 mcg-glycopyr 9 2 inh inhalation BID 05/18/25 09/24/25 08/15/25 mcg-formot 4.8 mcg/actuation HFA inhaler (Breztri Aerosphere) folic acid 1 mg tablet 1 mg PO QAM 05/18/25 09/24/25 08/15/25 prochlorperazine maleate 10 mg 10 mg PO Q6H PRN Nausea And 05/18/25 09/24/25 Unknown tablet Vomiting trazodone 50 mg tablet 50 mg PO HS 05/18/25 09/24/25 08/14/25 pantoprazole 40 mg tablet,delayed 40 mg PO BID #60 tabs 05/21/25 09/24/25 08/15/25 release B-complex with vitamin C 1 cap PO QAM 06/21/25 09/24/25 08/15/25 aspirin 81 mg tablet,delayed 81 mg PO QAM 06/21/25 09/24/25 08/15/25 release dexamethasone 4 mg tablet 8 mg PO DIRECTED PRN DAYS 2,3,4 06/21/25 09/24/25 06/26/25 OF CHEMO lidocaine-prilocaine 2.5 %-2.5 % 1 applic topical DIRECTED PRN 06/21/25 09/24/25 Unknown topical cream ACCESSING MEDIPORT loperamide 1 mg/7.5 mL oral liquid 0.5 mg PO DAILY PRN Diarrhea 06/21/25 09/24/25 Unknown (Imodium A-D) loratadine 10 mg tablet (Claritin) 10 mg PO DAILY PRN START DAY OF 06/21/25 09/24/25 Unknown CHEMO X 5 DAYS. metoprolol succinate 50 mg 50 mg PO BID 06/21/25 09/24/25 08/15/25 tablet,extended release 24 hr ondansetron HCl 8 mg tablet 8 mg PO Q8H PRN NAUSEA/VOMITING 06/21/25 09/24/25 Unknown oxycodone 5 mg tablet 5 mg PO Q4H PRN pain #10 tabs 06/23/25 09/24/25 Unknown L.acidop,casei,lactis,rham-B.lact,zac 1 cap PO QAM 08/15/25 09/24/25 08/15/25 625 mg (10 billion cell) capsule (Advanced Probiotic) Active Medications Generic Name Dose Route Start Last Admin Trade Name Freq PRN Reason Stop Dose Admin Acetylcysteine 2 ml 09/27/25 11:00 09/28/25 10:49 Acetylcysteine 10% Inhal Soln 4 Ml Dispensed By Resp. INH 10/27/25 10:59 2 ml QIDR CHANELLE Administration Albuterol 3 ml 09/27/25 11:00 09/28/25 10:49 Albut/Ipratrop 3mg/0.5mg Neb 3 Ml Vial NEB 10/27/25 10:59 3 ml QIDR CHANELLE Administration Protocol Amiodarone HCl 200 mg 09/27/25 10:30 09/28/25 07:54 Amiodarone 200 Mg Tab PO 10/27/25 10:29 200 mg BIDM CHANELLE Administration Atorvastatin Calcium 80 mg 09/25/25 09:00 09/28/25 07:55 Atorvastatin 40 Mg Tab PO 10/25/25 08:59 80 mg DAILY CHANELLE Administration Calcium/Vitamin D 1 tab 09/28/25 09:00 09/28/25 10:31 Calcium 600mg + Vit D 400 Iu Tab PO 10/28/25 08:59 1 tab BID CHANELLE Administration Fluticasone Furoate 1 puffs 09/24/25 21:45 09/28/25 07:56 Fluticasone Furoate 200mcg 14 Puffs/Inhaler INH 10/24/25 21:44 1 puffs DAILY CHANELLE Administration Folic Acid 1 mg 09/25/25 09:00 09/28/25 07:55 Folic Acid 1 Mg Tab PO 10/25/25 08:59 1 mg QAM CHANELLE Administration Furosemide 40 mg 09/28/25 09:00 09/28/25 10:31 Furosemide 40 Mg/4 Ml Vial IV 10/28/25 08:59 40 mg DAILY CHANELLE Administration Phenylephrine HCl 100 mg in 250 mls @ 0 mls/hr 09/26/25 09:45 09/28/25 07:42 Phenylephrine/Nss IV 10/26/25 09:44 Not Given .Q0M CHANELLE Protocol 0 MCG/KG/MIN Piperacillin Sod/Tazobactam Sod 4.5 gm in 100 mls @ 25 mls/hr 09/26/25 13:00 09/28/25 12:29 Zosyn IV 09/29/25 23:59 25 mls/hr Q8H CHANELLE Administration Protocol Lactobacillus Acidophilus 1,250 mg 09/25/25 09:00 09/28/25 07:56 Advanced Probiotic 625 Mg Capsule PO 10/25/25 08:59 1,250 mg QAM CHANELLE Administration Metoprolol Succinate 50 mg 09/24/25 21:45 09/24/25 22:23 Metoprolol Succ 50mg Ext Rel Tab PO 10/24/25 21:44 50 mg BID CHANELLE Administration Midodrine 5 mg 09/28/25 08:00 09/28/25 12:29 Midodrine Hcl 2.5 Mg Tab PO 10/28/25 07:59 5 mg TID@0800,1200,1700 CHANELLE Administration Pantoprazole Sodium 40 mg 09/24/25 21:00 09/28/25 07:55 Pantoprazole 40 Mg Tab PO 10/24/25 20:59 40 mg BID CHANELLE Administration Tamsulosin HCl 0.4 mg 09/25/25 09:00 09/27/25 09:54 Tamsulosin Hcl 0.4 Mg Cap PO 10/25/25 08:59 Not Given QAM CHANELLE Umeclidinium/Vilanterol 1 puffs 09/24/25 21:45 09/28/25 07:53 Umeclidinium/Vilanterol 62.5/25mcg 7 Puffs/Inhaler INH 10/24/25 21:44 1 puffs DAILY CHANELLE Administration Vitamin B Complex 1 tab 09/25/25 09:00 09/28/25 07:56 Vitamin B Complex Tab PO 10/25/25 08:59 1 tab QAM CHANELLE Administration PG Care Time/CCT Total # of Minutes Spent Total Time Spent with Patient: Total time spent is greater than 50% in coordination of care (as documented) at patient's floor/unit and/or counseling patient: Coding Level of Care Code 25913 SUB INP/OBS CARE 3/50MIN Diagnoses Demand ischemia I24.89 SVT (supraventricular tachycardia) I47.10 ANDRES (acute kidney injury) N17.9 Hypotension I95.9 Paroxysmal atrial flutter I48.92 ASCVD (arteriosclerotic cardiovascular disease) I25.10 Elevated troponin R79.89 Septic shock A41.9; R65.21
--- NOTE | 2025-09-28 15:07 | Hospitalist Progress Note ---
Date of Service September 28, 2025 Assessment & Plan (1) Acute hypoxic respiratory failure: (2) Pulmonary edema: (3) Pleural effusion: (4) Acute on chronic heart failure with preserved ejection fraction: (5) Ileus: (6) Diverticulitis: (7) Acute kidney injury superimposed on stage 3a chronic kidney disease: (8) Elevated troponin: Plan Mr. 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 Patient initially in ICU given pressor requirement, however, now on midodrine and with decreasing o2 requirement. Plan to downgrade to PCU Discussed at length with patient in room (35 min) and (45 min, on phone), about goals of care. Patient is suggesting he does not want to do chemo any more, but also does not want other treatments to cease, still stating he wants intubation and CPR if necessary. He then notes that hospice does sound appealing. Discussed with , she states she would understand if he went hospice, but notes that he can change his mind if he starts to feel better. Discussed that palliative will be consulted to speak with him on Tuesday--this gives additional time for him to think about his goals and clarify any questions he may have about the next steps. Additionally, Dr. Everett will be contacted to help guide this discussion. #Shock #Multifactorial: Septic from Pneumonia, Diverticulitis; Hypovolemic from Diarrhea; Cardiogenic from systolic CHF blood culture: negative x 48 hrs sputum culture: pending off phenlyephrine, Midodrine added continue IV Zosyn, transition to PO regimen tomorrow contingent on o2 requirements Echocardiogram was performed. Moderately reduced systolic function with an EF of 40 to 45% and global hypokinesis. Grade 2 diastolic dysfunction. Normal RV size and function. Mild aortic stenosis, mild to moderate pulmonic regurg, mild MR and TR. #Acute hypoxic respiratory failure, multifactorial #Interstitial pulmonary edema, small to moderate L pleural effusion seen on CXR #Small layering pleural effusions and compressive bilateral lower lobe consolidation seen on CTAP #Acute on chronic HFpEF Resp BioFire negative. Requiring 8L OxyMask in ED, maintaining sats in the upper 90s. BNP 1006 however pt is hypotensive and appears dry on exam, s/p 1.5L IVF in the ED. Continue IVF, update TTE as per below. Prior TTE last month: EF 55%, moderately dilated LA, moderate MR, mild TR. Wean O2 as tolerated. Does have nonproductive cough/congestion and CXR reads patchy bibasilar opacities, possible PNA. Covering with IV Zosyn Pulm toileting as able. continue nebs/inhalers Discussed with collection clerk, pleural effusions not large enough for drainage #Atrial Fibrillation likely secondary to above on Amiodarone po BID anticoagulation held as Plt 40k #Ileus with findings suggestive of mild descending colonic acute diverticulitis on CTAP Maintain NPO status, continue IVF and PRN electrolyte repletion. S/p IV Zithromax, Rocephin and Flagyl in ED. Appreciate gen surgery consult-no surgical intervention Tolerating regular diet Transition to PO abx as long as continues to clinical improve #ANDRES superimposed on CKD stage IIIa Cr previously 1.8 as of 08/19/25, appears baseline prior to that was around 1- 1.2 as per records. Cr 3.25 on presentation today. Suspect related to volume depletion ISO above, IVF onboard. slowly improving cr 2.17 #Pancytopenia #Chronic anemia #Metastatic poorly-differentiated carcinoma with unknown primary, most likely origin thought pulmonary [facility] Dr. Eve[facility]. Diagnosed in 2023. PET scan done on 04/23/24 which revealed metabolically active pleural-based lung nodules suspicious for metastases and metabolically active prevascular and left suprahilar lymphadenopathy. Completed 6 cycles of combination of pemetrexed plus carboplatin Keytruda with overall good tolerance. Follow-up PET scan done after 4 cycles of chemotherapy revealed good response. Was on maintenance treatment including combination of pemetrexed and Keytruda. Follow-up PET scan done on 08/07/25 revealed disease progression. Now on combination Docetaxel and Ramucirumab; last received chemotherapy on 09/17/25. Continue PRN oxy IR for cancer-related pain. Neutropenic precautions, fall precautions in light of thrombocytopenia. Neutropenia improved, stable hgb Platelets in 40s, continue to hold anticoagulation Given patient's request to potentially "stop treatments" but also wishes to remain Full Code, will get Palliative Care consult for Tuesday to help patient truly understand goals of care and plans moving forward. Worked to try to discuss the conflict between hospice and full code, patient states intubation and CPR are the "least that could be done." This conversation warrants further time and thoughtful discussion to ensure patient's wishes are truly understood. #DMII with peripheral vascular disease: Hgb A1c 5.7% 1mo ago, SSI protocol while admitted with BSG checks ACHS. #ASCVD: Continue ASA, statin therapy. #COPD: Continue home inhalers #Infrarenal abdominal aortic aneurysm Appears stable on CTAP today, measuring 3.3cm. Recommend CTAP or MR imaging follow-up in 3yr as per ACR White Paper guidelines. #HTN: Hold lisinopril for now given hypotension, resume as able/tolerated. #GERD: Continue PPI BID. #BPH: Continue Flomax. #Hypocalcemia: Check vit D level, continue to monitor. DVT Prophylaxis: SCDs/TEDs only for now in light of thrombocytopenia Code Status: FULL CODE - Discussed with pt at bedside in ICU with patient Admission and Anticipated Discharge Date Admission Date: September 24, 2025 Subjective evaluated in ICU reports feeling much better over all states that he isnt sure he wants to do chemo, he states he understands that would mean his cancer would likely continue to progress but he "doesnt want to be in the hospital" discussed code status and other elements to determine if he understands hospice, he still wishes for everything to be done at this juncture denies any sob, chest pain, palpitations or other concerns at this time Physical Exam Constitutional: WD/WN, vitals as above Respiratory: diminshed in bases bilaterally with crackles Cardiovascular: sounds regular Results & Data Results & Data Vital Signs (Past 12 Hours) Vital Signs Temp Pulse Pulse Resp BP Pulse Ox O2 Del Method 09/28/25 12:18 36.9 C 09/28/25 12:00 98/48 L 09/28/25 12:00 98/48 L 09/28/25 12:00 98/48 L 09/28/25 12:00 98/48 L 09/28/25 12:00 98/48 L 09/28/25 12:00 80 23 92 09/28/25 11:30 85 31 H 93 09/28/25 11:30 112/52 L 09/28/25 11:30 112/52 L 09/28/25 11:30 112/52 L 09/28/25 11:30 112/52 L 09/28/25 11:30 112/52 L 09/28/25 11:00 73 23 100 09/28/25 11:00 105/51 L 09/28/25 11:00 105/51 L 09/28/25 11:00 105/51 L 09/28/25 11:00 105/51 L 09/28/25 11:00 105/51 L 09/28/25 10:50 82 24 100 Nasal Cannula 09/28/25 10:30 111/45 L 09/28/25 10:30 111/45 L 09/28/25 10:30 111/45 L 09/28/25 10:30 111/45 L 09/28/25 10:30 111/45 L 09/28/25 10:30 77 20 91 09/28/25 10:00 101/48 L 09/28/25 10:00 101/48 L 09/28/25 10:00 101/48 L 09/28/25 10:00 101/48 L 09/28/25 10:00 101/48 L 09/28/25 10:00 74 24 95 09/28/25 09:30 64 20 92 09/28/25 09:30 112/42 L 09/28/25 09:30 112/42 L 09/28/25 09:30 112/42 L 09/28/25 09:30 112/42 L 09/28/25 09:30 112/42 L 09/28/25 09:15 76 23 95 09/28/25 09:00 102/45 L 09/28/25 09:00 102/45 L 09/28/25 09:00 102/45 L 09/28/25 09:00 102/45 L 09/28/25 09:00 102/45 L 09/28/25 09:00 71 23 95 09/28/25 08:45 73 25 H 94 09/28/25 08:30 101/53 L 09/28/25 08:30 101/53 L 09/28/25 08:30 101/53 L 09/28/25 08:30 101/53 L 09/28/25 08:30 101/53 L 09/28/25 08:30 72 23 95 09/28/25 08:15 75 21 94 09/28/25 08:00 108/56 L 09/28/25 08:00 108/56 L 09/28/25 08:00 108/56 L 09/28/25 08:00 108/56 L 09/28/25 08:00 108/56 L 09/28/25 08:00 71 26 H 90 09/28/25 07:45 82 29 H 95 09/28/25 07:35 High Flow Nasal Cannula 09/28/25 07:31 36.8 C 09/28/25 07:30 111/52 L 09/28/25 07:30 111/52 L 09/28/25 07:30 111/52 L 09/28/25 07:30 111/52 L 09/28/25 07:30 111/52 L 09/28/25 07:30 78 22 95 Nasal Cannula 09/28/25 07:30 73 18 90 Nasal Cannula 09/28/25 07:15 70 15 95 09/28/25 07:00 67 17 90 09/28/25 07:00 111/54 L 09/28/25 06:30 72 18 90 09/28/25 06:30 106/52 L 09/28/25 06:00 86/40 L 09/28/25 06:00 82 18 87 L 09/28/25 05:30 105/49 L 09/28/25 05:30 67 17 85 L 09/28/25 05:00 68 19 91 09/28/25 05:00 102/54 L 09/28/25 04:30 72 19 90 09/28/25 04:30 103/52 L 09/28/25 04:00 101/69 09/28/25 04:00 72 18 90 09/28/25 03:30 110/50 L 09/28/25 03:30 68 16 87 L 09/28/25 03:01 109/51 L O2 Flow Rate 09/28/25 12:18 12/27/25 12:00 09/28/25 12:00 09/28/25 12:00 09/28/25 12:00 09/28/25 12:00 09/28/25 12:00 09/28/25 11:30 09/28/25 11:30 09/28/25 11:30 09/28/25 11:30 09/28/25 11:30 09/28/25 11:30 09/28/25 11:00 09/28/25 11:00 09/28/25 11:00 09/28/25 11:00 09/28/25 11:00 09/28/25 11:00 09/28/25 10:50 7 09/28/25 10:30 09/28/25 10:30 09/28/25 10:30 09/28/25 10:30 09/28/25 10:30 09/28/25 10:30 09/28/25 10:00 09/28/25 10:00 09/28/25 10:00 09/28/25 10:00 09/28/25 10:00 09/28/25 10:00 09/28/25 09:30 09/28/25 09:30 09/28/25 09:30 09/28/25 09:30 09/28/25 09:30 09/28/25 09:30 09/28/25 09:15 09/28/25 09:00 09/28/25 09:00 09/28/25 09:00 09/28/25 09:00 09/28/25 09:00 09/28/25 09:00 09/28/25 08:45 09/28/25 08:30 09/28/25 08:30 09/28/25 08:30 09/28/25 08:30 09/28/25 08:30 09/28/25 08:30 09/28/25 08:15 09/28/25 08:00 09/28/25 08:00 09/28/25 08:00 09/28/25 08:00 09/28/25 08:00 09/28/25 08:00 09/28/25 07:45 09/28/25 07:35 8 09/28/25 07:31 09/28/25 07:30 09/28/25 07:30 09/28/25 07:30 09/28/25 07:30 09/28/25 07:30 09/28/25 07:30 8 09/28/25 07:30 9 09/28/25 07:15 09/28/25 07:00 09/28/25 07:00 09/28/25 06:30 09/28/25 06:30 09/28/25 06:00 09/28/25 06:00 09/28/25 05:30 09/28/25 05:30 09/28/25 05:00 09/28/25 05:00 09/28/25 04:30 09/28/25 04:30 09/28/25 04:00 09/28/25 04:00 09/28/25 03:30 09/28/25 03:30 09/28/25 03:01
[2025-09-28] MEDS: ALBUMIN 25% 12.5 GM/50 ML VIAL IV ONE (17:33)
[2025-09-28] MEDS: DIGOXIN 125 MCG in SYRINGE 9.5 ML IV STA (17:34)
[2025-09-28] MEDS: ALBUMIN HUMAN 25% 12.5 GM/50 ML VIAL IV ONE (17:39)
[2025-09-28] MEDS: CALCIUM GLUCONATE 1,000 MG/60 ML BAG IV SCH (17:46)
[2025-09-28] MEDS ORDERED: STAT IV Infusion **Titration per Protocol STA (17:50)
[2025-09-28] MEDS: SODIUM CHLORIDE 0.9% 500 ML IV ONE (18:00)
--- NOTE | 2025-09-28 18:14 | Communication Note ---
Date of Service: September 28, 2025 at around 535 patient flipped into RVR with rates in 140-170s and SBP down to 60s administered 500cc NS, albumin and 125mcg digoxin pressures remained soft and patient remained in a fib ordered peripheral phenyl plan to transfer back to ICU overnight Discussed with Dr. Sheridan: agree for ICU Discussed with Dr. Rivera: start IVF and phenyl, see what rates do once bp stabilized.
[2025-09-28] MEDS: SODIUM CHLORIDE 0.9% 1,000 ML IV SCH (18:28)
[2025-09-28] MEDS: PHENYLEPHRINE/NSS 25 MG/250 ML BAG IV SCH (18:29)
[2025-09-28 18:39] LABS: Hematocrit (blood only) 26.2 % (42.0-52.0); Hemoglobin 8.5 g/dL (14.0-18.0); Mean Corpuscular Hemoglobin 36.5 pg (25.0-34.0); Mean Corpuscular Volume 112.4 fL (80.0-100.0); Platelet Count 42 K/uL (130-400); RDW Standard Deviation 64.6 fL (36.4-46.3); Red Blood Count 2.33 M/uL (4.70-6.10); White Blood Count 9.96 K/ul (4.8-10.8)
[2025-09-28 18:54] LABS: Anion Gap 6.0 (3-11); Blood Urea Nitrogen 24.0 mg/dl (6-23); Calcium 7.7 mg/dl (8.6-10.3); Carbon Dioxide 23.0 mmol/L (21-32); Chloride 113.0 mmol/L (98-107); Creatinine Clr Calc Pharmacy 29.9 ml/min; Glucose 116.0 mg/dl (70-99(Fasting)); Magnesium 1.8 mg/dl (1.7-2.4); Potassium 3.6 mmol/L (3.5-5.1); Sodium 142.0 mmol/L (136-145)
[2025-09-28] MEDS: MAGNESIUM SULFATE / D5W 1 GM/100 ML BAG IV SCH (20:09)
[2025-09-29 05:19] LABS: Anion Gap 6.0 (3-11); Blood Urea Nitrogen 23.0 mg/dl (6-23); Calcium 7.3 mg/dl (8.6-10.3); Carbon Dioxide 24.0 mmol/L (21-32); Chloride 115.0 mmol/L (98-107); Creatinine Clr Calc Pharmacy 31.0 ml/min; Glucose 101.0 mg/dl (70-99(Fasting)); Magnesium 2.3 mg/dl (1.7-2.4); Potassium 4.3 mmol/L (3.5-5.1); Sodium 145.0 mmol/L (136-145)
[2025-09-29 05:30] LABS: Acanthocytes 1+; Dohle Bodies 1+; Hematocrit (blood only) 27.4 % (42.0-52.0); Hemoglobin 8.8 g/dL (14.0-18.0); Immature Granulocytes # (auto) 0.10 K/uL (0.01-0.20); Immature Granulocytes % (auto) 0.8 %; Macrocytosis Present; Mean Corpuscular Hemoglobin 36.4 pg (25.0-34.0); Mean Corpuscular Volume 113.2 fL (80.0-100.0); Platelet Count 50 K/uL (130-400); Polychromasia 1+; RDW Standard Deviation 64.8 fL (36.4-46.3); Red Blood Count 2.42 M/uL (4.70-6.10); White Blood Count 12.13 K/ul (4.8-10.8)
[2025-09-29] MEDS: MIDODRINE HCL 10 MG TAB PO SCH (07:42)
--- NOTE | 2025-09-29 08:13 | Critical Care Progress Note ---
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 The patient follows with Dr. Everett at [facility] oncology. He received 6 cycles of pemetrexed plus carboplatin and Keytruda. Continued on maintenance with pemetrexed and Keytruda. Then transition to docetaxel and ramicurimab. Last therapy was on 09/17/2025. The patient presented to the hospital 09/24/2025 with a complaint of nausea, vomiting and diarrhea for 3 days duration. He was unable to tolerate p.o. Also worsening shortness of breath, does not normally wear oxygen at home. In the emergency department the patient was found to be hypoxic. Imaging of the chest was concerning for pulmonary edema with pleural effusions. BioFire was negative. Required 8 L on admission. Imaging of the abdomen showed ileus and mild descending colonic diverticulitis. The patient was in A-fib with RVR on presentation. Troponins were elevated as well as BNP. He was in ANDRES as well. General surgery and cardiology were both consulted on admission. The patient received fluid resuscitation with 2-1/2 L of fluid. Trial of Lopressor was done however the patient had worsening hypotension and continued to go in and out of A-fib. The patient was transferred to the ICU for pressor support. He was initiated on amiodarone and phenylephrine. He was continued on oxygen supplementation. No further fluid resuscitation was given. Patient remained in the ICU. He remained on phenylephrine. Was treated with Zosyn. Diarrhea resolved. He was seen by cardiology and placed on amiodarone. He was on midodrine, doing well with a regular diet. Transferred out to the floor on 09/28/2025. After transfer the patient went back into rapid A-fib RVR and became hypotensive. He was transferred back to the ICU. Reason Critically Ill: Arrhythmia, A-fib RVR and SVT Shock state, septic versus cardiogenic in setting of uncontrolled arrhythmias Elevated troponin Heart failure with moderately reduced ejection fraction Acute hypoxic respiratory failure Pulmonary edema and pleural effusions ANDRES on CKD Ileus Diverticulitis Metastatic carcinoma with recent chemotherapy and immunotherapy Thrombocytopenia Neuro: Awake and alert. No neurologic deficits at this time. Cardiac: Shock state Arrhythmia, A-fib RVR and SVT Elevated troponin Heart failure with moderately reduced ejection fraction Not currently on anticoagulation, has thrombocytopenia patient deferred anticoagulation previously. Was volume resuscitated for hypovolemia on presentation. Received 3 L in boluses, was on maintenance fluids. Becomes hypotensive when he goes into arrhythmias. Blood pressure is much better when he is sinus rhythm and rate controlled. Echocardiogram was performed. Moderately reduced systolic function with an EF of 40 to 45% and global hypokinesis. Grade 2 diastolic dysfunction. Normal RV size and function. Mild aortic stenosis, mild to moderate pulmonic regurg, mild MR and TR. Cardiology has been consulted. Was on amiodarone infusion, transition to p.o. amiodarone 200 mg twice daily by cardiology. Have not started beta-blockers given continued need for vasopressors. Has also been intermittently bradycardic. Phenylephrine was weaned off after midodrine was added yesterday. Hopefully midodrine can be slowly tapered off as he continues to improve. Cortisol level is borderline 18, got a one-time dose of 100 mg of hydrocortisone without significant improvement in blood pressure. He is still on phenylephrine. Requirement is downtrending. Likely will be off later today. Needs diuresis however given hypotension we will hold off for now. Respiratory: Acute hypoxic respite failure Underlying COPD Pulmonary edema with bilateral pleural effusions (left Thora 08/16/2025, appears transudative with low protein and LDH. Negative cultures) CT imaging was reviewed by myself small to moderate bilateral pleural effusions appreciated. Interlobular septal thickening suggesting pulmonary edema. There is also what appears to be an infiltrate, most appreciated on the left. Patient has been started on Zosyn and azithromycin. I agree with this. End date for Zosyn is today. Continue DuoNebs. Respiratory BioFire was negative. Procalcitonin 1.13 -->0.66-->0.34. MRSA nares negative. Continue oxygen supplementation, wean as tolerated. Patient has a weak cough, has been laying in bed a lot. Added pulmonary toilet today. Needs to get out of bed and needs to be sitting up all day long. Respiratory therapy is working with him, he has I-S, flutter valve, CoughAssist, chest physiotherapy and mucolytic's. Did POCUS today, has B-lines bilaterally and pleural effusions. Do not appear complicated at this time. Will hold off on thoracentesis. He does need diuresis however we will hold off today given need for phenylephrine. GI: Ileus Diverticulitis Diarrhea Diarrhea resolved. Last day of the Zosyn is today. Protonix 40 twice daily. Diet ordered. RENAL/LYTES: ANDRES on CKD Electrolyte disturbance Received 3 L crystalloid resuscitation. ANDRES is improving. Making good urine. Monitor and replace electrolytes. : BPH Urinary retention Required straight cath, continue to retain. Valenzuela catheter placed. Will stop Flomax given hypotension. Keep Valenzuela. ENDO: Blood glucose acceptable. A1c slightly elevated at 5.9. TSH okay. Cortisol is borderline 18.9, got 100 mg dose of hydrocortisone, did not respond to this so it was not continued. HEME: Metastatic carcinoma on chemo and immunotherapy Thrombocytopenia Place SCDs, holding heparin. Presentation could be cardiotoxicity given recent chemotherapy. Could also be immuno therapy related. ID: Colitis on CT. Pneumonia as well. Completed azithromycin, will finish Zosyn today. Blood cultures show no growth to date. Has an infiltrate on CT, Pro-Jd slightly elevated but downtrending. Urine does not look infected. MRSA nares negative. BioFire was negative. Sputum culture is in lab,, pinpoint growth present, it is being reintubated, will follow-up. Feeding: Regular Fluids: None Analgesia: Oxy Activity: Up to chair, please out of bed is much as possible. Thromboprophylaxis: SCD Ulcer prophylaxis: Pantoprazole Glycemic control: Not indicated Bowels: Diarrhea has resolved, may require bowel regimen. Indwelling catheters: PIV, Mediport, Valenzuela Antibiotics: Zosyn Plan: Patient remain in the ICU today. He is on low-dose phenylephrine. Grossly volume overloaded on examination. He is not having diarrhea. Stopping IV fluids. More hypoxic, has B-lines bilaterally, pleural effusions bilaterally. Got Lasix yesterday however was hypotensive so these have been discontinued. Did have good urine output with it. ANDRES is improving. He is still hypoxic. He has a very weak cough, he lays in bed all day and is not coughing up his secretions. I have aggressive pulmonary toilet going. I instructed him to sit up all day long. He needs to cough up his phlegm. We will follow his final sputum culture. He is finishing up antibiotics today. I do not see a reason to extend them given that his procalcitonin is 0.34 which is significantly decreased from presentation. I think most of his hypoxia is related to volume overload and likely mucous plugging due to weak cough. Patient is in sinus rhythm now, still on amiodarone, not sure if this is adequate given that he keeps having arrhythmias. Cardiology is consulted. I appreciate their assistance with case. I have personally spent 55 minutes of critical care time in the direct management of this patient. This is a life/limb threatening event. This includes time spent evaluating patient, direct bedside care, chart review, placing orders, interpretation of diagnostic studies, discussion with consultants, patient, and family members, as well as other required patient management activities. This time is exclusive of all separately billable procedures, and teaching time and separate from and in addition to any other critical care service time. Admission and Anticipated Discharge Date Admission Date: September 24, 2025 Subjective Past 24-hour events: Patient was seen out of ICU yesterday. He was off of arvind and blood pressure was acceptable. We started diuretics yesterday. After leaving the ICU he decompensated, went back into a rapid heart rate with A-fib RVR. Became hypotensive. Sent back to ICU for phenylephrine. Electrolytes were replaced, the patient converted back to sinus rhythm. Diarrhea has resolved. Only 1 bowel movement over the past 24 hours. Rounding: Resting comfortably in bed. He is wanting to lay flat. Has a very weak cough. Not bringing up phlegm. I instructed him to stay sitting up as long as we can today. We adjusted him in bed. He has flutter valve and is prone to stronger at bedside. Breath sounds are coarse. [id number] ultrasound again performed this morning, he does have bilateral pleural effusions however these are not large enough that they warrant thoracentesis. Do not appear complicated. Atelectatic lung appreciated. B- lines appreciated bilaterally. I stopped his IV fluids. He is significantly volume overloaded. Phenylephrine drip is coming down. In sinus rhythm. Intake: 1838 mL Output: 1686 mL Net: +152 mL Mechanical ventilation: None, on nasal cannula 11 L. Feeding: Regular diet IV infusions: Phenylephrine Indwelling catheters: Valenzuela, Mediport, peripheral IV Laboratory: CBC: WBC 12.1, hemoglobin 8.8, platelet 50 Chemistry: Sodium 145, potassium 4.3, chloride 115, bicarb 24, BUN 23, creatinine 1.96, glucose 101, calcium 7.3, phosphorus 3.2, magnesium 2.3, procalcitonin 0.34. ABG: None Review of Systems Review of Systems: Negative except as in HPI. Physical Exam Physical Exam: Physical examination: General: Well-appearing, well-nourished and not in acute distress. HEENT: Normocephalic, atraumatic. Extraocular movements intact. Sclera are nonicteric. No JVD appreciated. Skin: Warm and dry. No rashes appreciated. No jaundice appreciated. Cardiovascular: Heart is a regular rate and rhythm. No murmurs appreciated on my exam. Lungs: Coarse with crackles, diminished at bases. On nasal cannula. Nontachypneic. Saturation 93%. POCUS shows B-lines bilaterally. Bilateral pleural effusions, right greater than left. Do not appear complicated or loculated at this time. Not large enough to warrant thoracentesis. Abdomen: Nondistended, nontender to palpation. No masses appreciated. Musculoskeletal: Normal muscle mass and tone. No gross joint deformity abnormalities. No effusions appreciated. Neurologic: Awake and alert, oriented. CN II through XII are grossly intact. Speech is fluent. Nonfocal exam. Psychiatric: Appropriate cooperative during my exam. Results & Data Results & Data Vital Signs (Past 12 Hours) Vital Signs Temp Pulse Pulse Resp BP Pulse Ox O2 Del Method 09/29/25 07:56 High Flow Nasal Cannula 09/29/25 07:45 85 16 93 Nasal Cannula 09/29/25 07:30 146/66 H 09/29/25 07:30 146/66 H 09/29/25 07:30 146/66 H 09/29/25 07:30 146/66 H 09/29/25 07:30 146/66 H 09/29/25 07:30 78 27 H 09/29/25 07:25 71 18 90 Nasal Cannula 09/29/25 07:15 71 14 09/29/25 07:00 135/62 09/29/25 07:00 135/62 09/29/25 07:00 135/62 09/29/25 07:00 135/62 09/29/25 07:00 135/62 09/29/25 07:00 69 16 09/29/25 02:00 117/61 09/29/25 02:00 68 26 H 09/29/25 01:30 116/56 L 09/29/25 01:30 71 24 09/29/25 01:00 67 24 89 L 09/29/25 01:00 117/55 L 09/29/25 00:30 61 17 90 09/29/25 00:30 125/60 09/29/25 00:00 64 20 09/29/25 00:00 118/64 09/28/25 23:30 69 18 87 L 09/28/25 23:30 107/57 L 09/28/25 23:12 69 09/28/25 23:00 72 16 09/28/25 23:00 119/54 L 09/28/25 22:31 106/61 09/28/25 22:30 75 22 94 09/28/25 22:00 75 17 97 09/28/25 22:00 103/50 L 09/28/25 21:00 36.5 C 09/28/25 20:30 High Flow Nasal Cannula O2 Flow Rate 09/29/25 07:56 11 09/29/25 07:45 2 09/29/25 07:30 09/29/25 07:30 09/29/25 07:30 09/29/25 07:30 09/29/25 07:30 09/29/25 07:30 09/29/25 07:25 9 09/29/25 07:15 09/29/25 07:00 09/29/25 07:00 09/29/25 07:00 09/29/25 07:00 09/29/25 07:00 09/29/25 07:00 09/29/25 02:00 09/29/25 02:00 09/29/25 01:30 09/29/25 01:30 09/29/25 01:00 09/29/25 01:00 09/29/25 00:30 09/29/25 00:30 09/29/25 00:00 09/29/25 00:00 09/28/25 23:30 09/28/25 23:30 09/28/25 23:12 09/28/25 23:00 09/28/25 23:00 09/28/25 22:31 09/28/25 22:30 09/28/25 22:00 09/28/25 22:00 09/28/25 21:00 09/28/25 20:30 6 Coding Level of Care Code 87258 CRITICAL CARE 1ST 30-74M Diagnoses Dysrhythmia I49.9 Shock R57.9 Hypoxia R09.02 Elevated troponin R79.89 Acute kidney injury superimposed on stage 3a chronic kidney disease N17.9; N18.31 Diverticulitis K57.92 Ileus K56.7 Acute hypoxic respiratory failure J96.01
[2025-09-29] MEDS: CALCIUM GLUCONATE 1,000 MG/60 ML BAG IV SCH (10:17)
[2025-09-29] MEDS: METOPROLOL TARTRATE 1 MG/ML VIAL IV STA (13:01)
[2025-09-29] MEDS: METOPROLOL TARTRATE 1 MG/ML VIAL IV ONE (13:02)
--- NOTE | 2025-09-29 13:59 | Hospitalist Progress Note ---
Date of Service September 29, 2025 Assessment & Plan (1) Acute hypoxic respiratory failure: (2) Pulmonary edema: (3) Pleural effusion: (4) Acute on chronic heart failure with preserved ejection fraction: (5) Ileus: (6) Diverticulitis: (7) Acute kidney injury superimposed on stage 3a chronic kidney disease: (8) Elevated troponin: Plan Mr. 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 Patient initially in ICU given pressor requirement, however, now on midodrine and with decreasing o2 requirement. Downgraded to PCU 09/28, with prompt return back to ICU after going into RVR with pressures in 60s MAP < 60 As of this morning, patient remains on phenylephrine at 0.3 Patient is with a tenuous volume status. He is notably volume overloaded, but suspect that lasix, in combination with whole clinic picture, contributed to his return to ICU--though he was able to wean down on o2 Patient does not have effusions that are large enough for a successful thoracentesis. Discussed case with table cover folder. Awaiting further Cardiology recommendations. #Shock #Multifactorial: Septic from Pneumonia, Diverticulitis; Hypovolemic from Diarrhea; Cardiogenic from systolic CHF blood culture: negative x 48 hrs sputum culture: NGTD started back on phenlyephrine, Midodrine added and increased to 10mg TID continue IV Zosyn, Echocardiogram was performed. Moderately reduced systolic function with an EF of 40 to 45% and global hypokinesis. Grade 2 diastolic dysfunction. Normal RV size and function. Mild aortic stenosis, mild to moderate pulmonic regurg, mild MR and TR. Transferred back to ICU 09/28 iso a fib rvr and hypotension Patient remains critically unstable requiring close hemodynamic monitoring and pressor support in icu #Acute hypoxic respiratory failure, multifactorial #Interstitial pulmonary edema, small to moderate L pleural effusion seen on CXR #Small layering pleural effusions and compressive bilateral lower lobe consolidation seen on CTAP #Acute on chronic HFpEF Resp BioFire negative. Requiring 8L OxyMask in ED, maintaining sats in the upper 90s. BNP 1006 however pt is hypotensive and appears dry on exam, s/p 1.5L IVF in the ED. Continue IVF, update TTE as per below. Prior TTE last month: EF 55%, moderately dilated LA, moderate MR, mild TR. Wean O2 as tolerated. Does have nonproductive cough/congestion and CXR reads patchy bibasilar opacities, possible PNA. Covering with IV Zosyn, extending from 48 hour course Pulm toileting as able. continue nebs/inhalers Discussed with table cover folder, pleural effusions not large enough for drainage #Atrial Fibrillation with RVR likely secondary to above on Amiodarone po BID anticoagulation held as Plt 40k #Ileus with findings suggestive of mild descending colonic acute diverticulitis on CTAP Maintain NPO status, continue IVF and PRN electrolyte repletion. S/p IV Zithromax, Rocephin and Flagyl in ED. Appreciate gen surgery consult-no surgical intervention Tolerating regular diet Transition to PO abx as long as continues to clinical improve #ANDRES superimposed on CKD stage IIIa Cr previously 1.8 as of 08/19/25, appears baseline prior to that was around 1- 1.2 as per records. Cr 3.25 on presentation today. Suspect related to volume depletion ISO above, IVF onboard. slowly improving despite hypotensive episode #Leukocytosis no clear new source of infection, notably volume overloaded probably reactive, closely monitor procal 0.34 #Pancytopenia *resolved #Chronic anemia #Metastatic poorly-differentiated carcinoma with unknown primary, most likely origin thought pulmonary F/w [facility], Dr. Everett. Diagnosed in 2023. PET scan done on 04/23/24 which revealed metabolically active pleural-based lung nodules suspicious for metastases and metabolically active prevascular and left suprahilar lymphadenopathy. Completed 6 cycles of combination of pemetrexed plus carboplatin Keytruda with overall good tolerance. Follow-up PET scan done after 4 cycles of chemotherapy revealed good response. Was on maintenance treatment including combination of pemetrexed and Keytruda. Follow-up PET scan done on 08/07/25 revealed disease progression. Now on combination Docetaxel and Ramucirumab; last received chemotherapy on 09/17/25. Continue PRN oxy IR for cancer-related pain. Neutropenic precautions, fall precautions in light of thrombocytopenia. Neutropenia improved, stable hgb Platelets in 40s, continue to hold anticoagulation Given patient's request to potentially "stop treatments" but also wishes to remain Full Code, will get Palliative Care consult for Tuesday to help patient truly understand goals of care and plans moving forward. Worked to try to discuss the conflict between hospice and full code, patient states intubation and CPR are the "least that could be done." This conversation warrants further time and thoughtful discussion to ensure patient's wishes are truly understood. #DMII with peripheral vascular disease: Hgb A1c 5.7% 1mo ago, SSI protocol while admitted with BSG checks ACHS. #ASCVD: Continue ASA, statin therapy. #COPD: Continue home inhalers #Infrarenal abdominal aortic aneurysm Appears stable on CTAP today, measuring 3.3cm. Recommend CTAP or MR imaging follow-up in 3yr as per ACR White Paper guidelines. #HTN: Hold lisinopril for now given hypotension, resume as able/tolerated. #GERD: Continue PPI BID. #BPH: Continue Flomax. #Hypocalcemia: Check vit D level, continue to monitor. DVT Prophylaxis: SCDs/TEDs only for now in light of thrombocytopenia Code Status: FULL CODE Admission and Anticipated Discharge Date Admission Date: September 24, 2025 Subjective Patient transferred to ICU last evening Reports it feels a bit difficult to breathe at this time. Discussed his case in depth--explained how tenuous his medical status is. He verbalized understanding, then states "keep doin' what youre doing" Worked to discuss code status, patient states he can talk more with his when he returns home Denies chest pain, palpitations, or other concerns out side of respiratory status still requiring phenylephrine Physical Exam Constitutional: weak elderly man Respiratory: diffuse rhonchi, crackles, diminished bibasilar Cardiovascular: irregularly irregular, rates in 120-130s Results & Data Results & Data Vital Signs (Past 12 Hours) Vital Signs Temp Pulse Pulse Resp BP Pulse Ox O2 Del Method 09/29/25 13:02 130 H 105/67 09/29/25 13:01 143 H 98/54 L 12/28/25 11:45 150 H 22 94 High Flow Nasal Cannula 09/29/25 11:30 152 H 29 H 09/29/25 11:30 102/62 09/29/25 11:30 102/62 09/29/25 11:30 102/62 09/29/25 11:30 102/62 09/29/25 11:30 102/62 09/29/25 11:15 146 H 24 93 09/29/25 11:00 113/69 09/29/25 11:00 113/69 09/29/25 11:00 113/69 09/29/25 11:00 113/69 09/29/25 11:00 113/69 09/29/25 11:00 144 H 22 95 09/29/25 10:45 145 H 17 09/29/25 10:30 143 H 20 09/29/25 10:30 94/55 L 09/29/25 10:30 94/55 L 09/29/25 10:30 94/55 L 09/29/25 10:30 94/55 L 09/29/25 10:30 94/55 L 09/29/25 10:15 143 H 15 09/29/25 10:00 142 H 18 91 09/29/25 10:00 108/60 09/29/25 10:00 108/60 09/29/25 10:00 108/60 09/29/25 10:00 108/60 09/29/25 10:00 108/60 09/29/25 09:45 78 93 09/29/25 09:30 125/57 L 09/29/25 09:30 125/57 L 09/29/25 09:30 125/57 L 09/29/25 09:30 125/57 L 09/29/25 09:30 125/57 L 09/29/25 09:30 76 90 09/29/25 09:15 77 24 92 09/29/25 09:00 78 20 92 09/29/25 09:00 119/61 09/29/25 09:00 119/61 09/29/25 09:00 119/61 09/29/25 09:00 119/61 09/29/25 09:00 119/61 09/29/25 08:45 79 24 92 09/29/25 08:31 117/56 L 09/29/25 08:31 117/56 L 09/29/25 08:31 117/56 L 09/29/25 08:31 117/56 L 09/29/25 08:31 117/56 L 09/29/25 08:30 81 20 90 09/29/25 08:15 83 25 H 90 High Flow Nasal Cannula 09/29/25 08:10 36.8 C 09/29/25 07:56 High Flow Nasal Cannula 09/29/25 07:45 85 16 93 Nasal Cannula 09/29/25 07:30 146/66 H 09/29/25 07:30 146/66 H 09/29/25 07:30 146/66 H 09/29/25 07:30 146/66 H 09/29/25 07:30 146/66 H 09/29/25 07:30 78 27 H 09/29/25 07:25 71 18 90 Nasal Cannula 09/29/25 07:15 71 14 09/29/25 07:00 135/62 09/29/25 07:00 135/62 09/29/25 07:00 135/62 09/29/25 07:00 135/62 09/29/25 07:00 135/62 09/29/25 07:00 69 16 09/29/25 02:00 117/61 09/29/25 02:00 68 26 H O2 Flow Rate 09/29/25 13:02 09/29/25 13:01 09/29/25 11:45 11 09/29/25 11:30 09/29/25 11:30 09/29/25 11:30 09/29/25 11:30 09/29/25 11:30 09/29/25 11:30 09/29/25 11:15 09/29/25 11:00 09/29/25 11:00 09/29/25 11:00 09/29/25 11:00 09/29/25 11:00 09/29/25 11:00 09/29/25 10:45 09/29/25 10:30 09/29/25 10:30 09/29/25 10:30 09/29/25 10:30 09/29/25 10:30 09/29/25 10:30 09/29/25 10:15 09/29/25 10:00 09/29/25 10:00 09/29/25 10:00 09/29/25 10:00 09/29/25 10:00 09/29/25 10:00 09/29/25 09:45 09/29/25 09:30 09/29/25 09:30 09/29/25 09:30 09/29/25 09:30 09/29/25 09:30 09/29/25 09:30 09/29/25 09:15 09/29/25 09:00 09/29/25 09:00 09/29/25 09:00 09/29/25 09:00 09/29/25 09:00 09/29/25 09:00 09/29/25 08:45 09/29/25 08:31 09/29/25 08:31 09/29/25 08:31 09/29/25 08:31 09/29/25 08:31 09/29/25 08:30 09/29/25 08:15 11 09/29/25 08:10 09/29/25 07:56 11 09/29/25 07:45 2 09/29/25 07:30 09/29/25 07:30 09/29/25 07:30 09/29/25 07:30 09/29/25 07:30 09/29/25 07:30 09/29/25 07:25 9 09/29/25 07:15 09/29/25 07:00 09/29/25 07:00 09/29/25 07:00 09/29/25 07:00 09/29/25 07:00 09/29/25 07:00 09/29/25 02:00 09/29/25 02:00 Laboratory Results Short CBC 09/28/25 09/29/25 Range/Units 18:06 04:22 WBC 9.96 12.13 H (4.8-10.8) K/ul Hgb 8.5 L 8.8 L (14.0-18.0) g/dL Hct 26.2 L 27.4 L (42.0-52.0) % Plt Count 42 L 50 L (130-400) K/uL BMP 09/28/25 09/29/25 18:06 04:22 Sodium 142 145 Potassium 3.6 4.3 Chloride 113 H 115 H Carbon Dioxide 23 24 BUN 24 H 23 Creatinine 2.03 H 1.96 H Glucose 116 H 101 H Calcium 7.7 L 7.3 L Medications Administered Home Medications Medication Instructions Recorded Confirmed Last Taken atorvastatin 80 mg tablet 80 mg PO DAILY 04/22/20 09/24/25 08/15/25 cholecalciferol (vitamin D3) 25 1,000 unit PO QAM 04/22/20 09/24/25 08/15/25 mcg (1,000 unit) capsule (Vitamin D3) epinephrine 0.3 mg/0.3 mL 0.3 mg IM DIRECTED PRN Allergic 04/22/20 09/24/25 Unknown injection, auto-injector Reaction nitroglycerin 0.4 mg sublingual 0.4 mg sublingual DIRECTED PRN 04/22/20 09/24/25 Unknown tablet (Nitrostat) Chest Pain tamsulosin 0.4 mg capsule 0.4 mg PO QAM 04/22/20 09/24/25 08/15/25 lisinopril 2.5 mg tablet 2.5 mg PO QAM 02/03/23 09/24/25 08/15/25 albuterol sulfate 90 mcg/actuation 2 inh inhalation Q4H PRN shortness 05/18/25 09/24/25 05/17/25 aerosol inhaler of breath or wheezing budesonide 160 mcg-glycopyr 9 2 inh inhalation BID 05/18/25 09/24/25 08/15/25 mcg-formot 4.8 mcg/actuation HFA inhaler (Breztri Aerosphere) folic acid 1 mg tablet 1 mg PO QAM 05/18/25 09/24/25 08/15/25 prochlorperazine maleate 10 mg 10 mg PO Q6H PRN Nausea And 05/18/25 09/24/25 Unknown tablet Vomiting trazodone 50 mg tablet 50 mg PO HS 05/18/25 09/24/25 08/14/25 pantoprazole 40 mg tablet,delayed 40 mg PO BID #60 tabs 05/21/25 09/24/25 08/15/25 release B-complex with vitamin C 1 cap PO QAM 06/21/25 09/24/25 08/15/25 aspirin 81 mg tablet,delayed 81 mg PO QAM 0909/24/25 08/15/25 release dexamethasone 4 mg tablet 8 mg PO DIRECTED PRN DAYS 2,3,4 06/21/25 09/24/25 06/26/25 OF CHEMO lidocaine-prilocaine 2.5 %-2.5 % 1 applic topical DIRECTED PRN 06/21/25 09/24/25 Unknown topical cream [facility] [employer] loperamide 1 mg/7.5 mL oral liquid 0.5 mg PO DAILY PRN Diarrhea 06/21/25 09/24/25 Unknown (Imodium A-D) loratadine 10 mg tablet (Claritin) 10 mg PO DAILY PRN START DAY OF 06/21/25 09/24/25 Unknown CHEMO X 5 DAYS. metoprolol succinate 50 mg 50 mg PO BID 06/21/25 09/24/25 08/15/25 tablet,extended release 24 hr ondansetron HCl 8 mg tablet 8 mg PO Q8H PRN NAUSEA/VOMITING 06/21/25 09/24/25 Unknown oxycodone 5 mg tablet 5 mg PO Q4H PRN pain #10 tabs 06/23/25 09/24/25 Unknown L.acidop,casei,lactis,rham-B.lact,zac 1 cap PO QAM 08/15/25 09/24/25 08/15/25 625 mg (10 billion cell) capsule (Advanced Probiotic) Active Medications Generic Name Dose Route Start Last Admin Trade Name Freq PRN Reason Stop Dose Admin Acetylcysteine 2 ml 09/27/25 11:00 09/29/25 10:31 Acetylcysteine 10% Inhal Soln 4 Ml Dispensed By Resp. INH 10/27/25 10:59 Not Given [facility] Albuterol 3 ml 09/27/25 11:00 09/29/25 10:31 Albut/Ipratrop 3mg/0.5mg Neb 3 Ml Vial NEB 10/27/25 10:59 [facility] Protocol Amiodarone HCl 200 mg 09/27/25 10:30 09/29/25 07:45 Amiodarone 200 Mg Tab PO 10/27/25 10:29 200 mg BIDM [facility] Administration Atorvastatin Calcium 80 mg 09/25/25 09:00 09/29/25 07:45 Atorvastatin 40 Mg Tab PO 10/25/25 08:59 80 mg DAILY CHANELLE Administration Calcium/Vitamin D 1 tab 09/28/25 09:00 09/29/25 07:46 Calcium 600mg + Vit D 400 Iu Tab PO 10/28/25 08:59 1 tab BID CHANELLE Administration Fluticasone Furoate 1 puffs 09/24/25 21:45 09/29/25 07:39 Fluticasone Furoate 200mcg 14 Puffs/Inhaler INH 10/24/25 21:44 1 puffs DAILY CHANELLE Administration Folic Acid 1 mg 09/25/25 09:00 09/29/25 07:43 Folic Acid 1 Mg Tab PO 10/25/25 08:59 1 mg QAM CHANELLE Administration Piperacillin Sod/Tazobactam Sod 4.5 gm in 100 mls @ 25 mls/hr 09/26/25 13:00 09/29/25 13:04 Zosyn IV 10/01/25 12:59 25 mls/hr Q8H CHANELLE Administration Protocol Phenylephrine HCl 25 mg in 250 mls @ 24.03 mls/hr 09/28/25 17:50 09/29/25 07:03 Phenylephrine/Nss IV 10/28/25 17:49 0.5 mcg/kg/min .[id number] CHANELLE 24 mls/hr Titration Protocol 0.5 MCG/KG/MIN Lactobacillus Acidophilus 1,250 mg 09/25/25 09:00 09/29/25 07:43 Advanced Probiotic 625 Mg Capsule PO 10/25/25 08:59 1,250 mg QAM CHANELLE Administration Metoprolol Succinate 50 mg 09/24/25 21:45 09/24/25 22:23 Metoprolol Succ 50mg Ext Rel Tab PO 10/24/25 21:44 50 mg BID CHANELLE Administration Midodrine 10 mg 09/29/25 08:00 09/29/25 11:27 Midodrine Hcl 10 Mg Tab PO 10/29/25 07:59 10 mg TID@0800,1200,1700 [facility]ANELLE Administration Pantoprazole Sodium 40 mg 09/24/25 21:00 09/29/25 07:45 Pantoprazole 40 Mg Tab PO 10/24/25 20:59 40 mg BID CHANELLE Administration Umeclidinium/Vilanterol 1 puffs 09/24/25 21:45 09/29/25 07:44 Umeclidinium/Vilanterol 62.5/25mcg 7 Puffs/Inhaler INH 10/24/25 21:44 1 puffs DAILY CHANELLE Administration Vitamin B Complex 1 tab 09/25/25 09:00 09/29/25 07:43 Vitamin B Complex Tab PO 10/25/25 08:59 1 tab QAM CHANELLE Administration
--- NOTE | 2025-09-29 14:15 | Cardiology Progress Note ---
Date of Service September 29, 2025 Assessment & Plan (1) Demand ischemia: (2) SVT (supraventricular tachycardia): (3) ANDRES (acute kidney injury): (4) Hypotension: (5) Paroxysmal atrial flutter: (6) ASCVD (arteriosclerotic cardiovascular disease): (7) Elevated troponin: (8) Septic shock: Plan 80-year-old male with metastatic malignancy with unknown primary (previously treated with pemetrexed and Keytruda) who developed nausea, vomiting, diarrhea, poor oral intake, and progressive weakness after initiation of Ramucirumab (Cyramza) and docetaxel (Taxotere) on September 17, 2025. Patient ultimately presented to the [facility] ER on 09/24/2025 hypoxic (84%), hypotensive (74/54), and tachycardic (150 bpm). Laboratory work with acute kidney injury (creatinine 3.25 mg/dL). CBC with pancytopenia, marked thrombocytopenia (40K). EKG revealed narrow complex tachycardia consistent with SVT/PAT, possible atrial flutter with diffuse STT wave depression. Patient asymptomatic in regards to tachypalpitations. High sensitivity troponin elevated (611.8 -> 679.6 -> 635.7 - > 535.6 pg/mL), representing demand ischemia in the setting of critical illness. Echocardiography with moderate reduction in LV systolic function (EF 40-45%) without regional wall motion abnormalities. Patient asymptomatic in regards to overt angina. Ongoing hypotension noted. Suspect adverse reactions to chemotherapy, cardiovascular toxicity, and hypovolemic shock. Marked thrombocytopenia precludes anticoagulation. IMP: Hypovolemic shock Post chemo sequelae ANDRES on CKD - slow improvement PAF with RVR Metastatic malignancy Pleural Effusion Pancytopenia - persistent thrombocytopenia Abn Troponin - likely due to demand ischemia and not indicative of Type I IA Moderate LV systolic dysfunction Hypokalemia RECOMMENDATIONS: would avoid fluid boluses unless urgently/emergently indicated due to LV systol ic dysfunction pressors as indicated diurese consider thoracentesis if significant pleural effusion is persistent may use Dig for rate control -> keep K between 4 and 4.5 and Mg between 2 and 2.5 when on Digoxin Hold off on all anti-HTN meds until BP allows Anticoagulation if no contraindication and when cleared by Hem-Onc Hem-Onc consult correct and f/u electrolytes f/u renal function avoid hypovolemia keep patient euvolemic DVT prophylaxis strict I&Os Admission and Anticipated Discharge Date Admission Date: September 24, 2025 Subjective Patient on exam is lying in bed; transferred back to ICU C/O mild sob no c/o palpitations despite tachycardia no c/o nausea, vomiting, abdominal pain, urinary or bowel problem problems back on phenylephrine Review of Systems Review of Systems: as per hpi Physical Exam Physical Exam: General: Resting comfortable, chronically ill appearing. Skin: Pallor HENT: Normocephalic. Atraumatic. Eyes: Conjunctiva pink, sclera pale. Neck: No JVD Heart: S1S2 tachycardic. Soft systolic murmur. No rub. Lungs: Decreased BS b/l lower lung dunn L > R; +rales Abdomen: +BS. Soft. Nontender. No masses or organomegaly. Extremities: No edema. Limited neurological examination is without focal deficits. Results & Data Vital Signs (Past 12 Hours) Vital Signs Vital Signs Temp 36.8 C 09/29/25 08:10 Pulse 130 H 09/29/25 13:02 Resp 22 09/29/25 11:45 BP 105/67 09/29/25 13:02 Pulse Ox 94 09/29/25 11:45 O2 Del Method High Flow Nasal Cannula 09/29/25 11:45 O2 Flow Rate 11 09/29/25 11:45 Intake & Output 09/28/25 09/29/25 09/29/25 18:59 06:59 18:59 Intake Total 1160 / 1777.067 617.067 / 4990.830 2535.2 / 1277.2 Output Total 901 / 1686 785 / 1686 Balance 259 / 91.067 -167.933 / 91.067 1277.2 / 1277.2 Weight 80 kg Intake: IV 810 / 1427.067 617.067 / 1904.301 8957.2 / 1277.2 Albumin 25% 12.5 gm In 50 ml @ 50 / 50 50 mls/hr IV [facility] Rx#: [id number] Calcium Gluconate 1,000 mg In 60 / 60 116 / 116 60 ml @ 240 mls/hr IV Q15M [facility] Rx#:[id number] Magnesium Sulfate / D5w 1 gm In 276.667 / 276.667 100 ml @ 50 mls/hr IV Q2H [facility] Rx#:[id number] Phenylephrine/Nss 100 mg In 250 0 / 0 ml @ 0 MCG/KG/MIN IV .Q0M [facility] Rx#:[id number] Phenylephrine/Nss 25 mg In 250 240.4 / 240.4 61.2 / 61.2 ml @ 0.5 MCG/KG/MIN 24.03 mls/ hr IV .[id number] [facility] Rx#:[id number] Piperacillin/Tazobactam 4.5 gm 200 / 300 100 / 300 100 / 100 In 100 ml @ 25 mls/hr IV Q8H [facility] Rx#:[id number] Sodium Chloride 0.9% 1,000 ml @ 500 / 500 1000 / 1000 75 mls/hr IV .[id number] [facility] Rx#: [id number] Oral 350 / 350 Output: Urine Amount (Catheter) 900 / 1685 785 / 1685 Coude 900 / 1685 785 / 1685 # Bowel Movements Other: Weight [facility] Pulse Pulse Resp BP Pulse Ox O2 Del Method 09/29/25 13:02 130 H 105/67 09/29/25 13:01 143 H 98/54 L 09/29/25 11:45 150 H 22 94 High Flow Nasal Cannula 09/29/25 11:30 152 H 29 H 09/29/25 11:30 102/62 09/29/25 11:30 102/62 09/29/25 11:30 102/62 09/29/25 11:30 102/62 09/29/25 11:30 102/62 09/29/25 11:15 146 H 24 93 09/29/25 11:00 113/69 09/29/25 11:00 113/69 09/29/25 11:00 113/69 09/29/25 11:00 113/69 09/29/25 11:00 113/69 09/29/25 11:00 144 H 22 95 09/29/25 10:45 145 H 17 09/29/25 10:30 143 H 20 09/29/25 10:30 94/55 L 09/29/25 10:30 94/55 L 09/29/25 10:30 94/55 L 09/29/25 10:30 94/55 L 09/29/25 10:30 94/55 L 09/29/25 10:15 143 H 15 09/29/25 10:00 142 H 18 91 09/29/25 10:00 108/60 09/29/25 10:00 108/60 09/29/25 10:00 108/60 09/29/25 10:00 108/60 09/29/25 10:00 108/60 09/29/25 09:45 78 93 09/29/25 09:30 125/57 L 09/29/25 09:30 125/57 L 09/29/25 09:30 125/57 L 09/29/25 09:30 125/57 L 09/29/25 09:30 125/57 L 09/29/25 09:30 76 90 09/29/25 09:15 77 24 92 09/29/25 09:00 78 20 92 09/29/25 09:00 119/61 09/29/25 09:00 119/61 09/29/25 09:00 119/61 09/29/25 09:00 119/61 09/29/25 09:00 119/61 09/29/25 08:45 79 24 92 09/29/25 08:31 117/56 L 09/29/25 08:31 117/56 L 09/29/25 08:31 117/56 L 09/29/25 08:31 117/56 L 09/29/25 08:31 117/56 L 09/29/25 08:30 81 20 90 09/29/25 08:15 83 25 H 90 High Flow Nasal Cannula 09/29/25 08:10 36.8 C 09/29/25 07:56 High Flow Nasal Cannula 09/29/25 07:45 85 16 93 Nasal Cannula 09/29/25 07:30 146/66 H 09/29/25 07:30 146/66 H 09/29/25 07:30 146/66 H 09/29/25 07:30 146/66 H 09/29/25 07:30 146/66 H 09/29/25 07:30 78 27 H 09/29/25 07:25 71 18 90 Nasal Cannula 09/29/25 07:15 71 14 09/29/25 07:00 135/62 09/29/25 07:00 135/62 09/29/25 07:00 135/62 09/29/25 07:00 135/62 09/29/25 07:00 135/62 09/29/25 07:00 69 16 O2 Flow Rate 09/29/25 13:02 09/29/25 13:01 09/29/25 11:45 11 09/29/25 11:30 09/29/25 11:30 09/29/25 11:30 09/29/25 11:30 09/29/25 11:30 09/29/25 11:30 09/29/25 11:15 09/29/25 11:00 09/29/25 11:00 09/29/25 11:00 09/29/25 11:00 09/29/25 11:00 09/29/25 11:00 09/29/25 10:45 09/29/25 10:30 09/29/25 10:30 09/29/25 10:30 09/29/25 10:30 09/29/25 10:30 09/29/25 10:30 09/29/25 10:15 09/29/25 10:00 09/29/25 10:00 09/29/25 10:00 09/29/25 10:00 09/29/25 10:00 09/29/25 10:00 09/29/25 09:45 09/29/25 09:30 09/29/25 09:30 09/29/25 09:30 09/29/25 09:30 09/29/25 09:30 09/29/25 09:30 09/29/25 09:15 09/29/25 09:00 09/29/25 09:00 09/29/25 09:00 09/29/25 09:00 09/29/25 09:00 09/29/25 09:00 09/29/25 08:45 09/29/25 08:31 09/29/25 08:31 09/29/25 08:31 09/29/25 08:31 09/29/25 08:31 09/29/25 08:30 09/29/25 08:15 11 09/29/25 08:10 09/29/25 07:56 11 09/29/25 07:45 2 09/29/25 07:30 09/29/25 07:30 09/29/25 07:30 09/29/25 07:30 09/29/25 07:30 09/29/25 07:30 09/29/25 07:25 9 09/29/25 07:15 09/29/25 07:00 09/29/25 07:00 09/29/25 07:00 09/29/25 07:00 09/29/25 07:00 09/29/25 07:00 Laboratory Results Laboratory Results WBC 12.13 K/ul (4.8-10.8) H 09/29/25 04:22 RBC 2.42 M/uL (4.70-6.10) L 09/29/25 04:22 Hgb 8.8 g/dL (14.0-18.0) L 09/29/25 04:22 POC Hgb 9.2 g/dl (14.0-18.0) L 09/24/25 14:54 Hct 27.4 % (42.0-52.0) L 09/29/25 04:22 POC Hct 27 % (42-52) L 09/24/25 14:54 MCV 113.2 fL (80.0-100.0) H 09/29/25 04:22 MCH 36.4 pg (25.0-34.0) H 09/29/25 04:22 MCHC 32.1 g/dL (32.0-36.0) 09/29/25 04:22 RDW Std Deviation 64.8 fL (36.4-46.3) H 09/29/25 04:22 RDW Coeff of Ele 15.4 % (11.5-14.5) H 09/29/25 04:22 Plt Count 50 K/uL (130-400) L 09/29/25 04:22 MPV 14.2 fL (9.4-12.4) H 09/28/25 18:06 Immature Gran % (Auto) 0.8 % 09/29/25 04:22 Neut % (Auto) 86.5 % 09/29/25 04:22 Lymph % (Auto) 7.8 % 09/29/25 04:22 Banks % (Auto) 4.5 % 09/29/25 04:22 Eos % (Auto) 0.1 % 09/29/25 04:22 Baso % (Auto) 0.3 % 09/29/25 04:22 Neut # (Auto) 10.48 K/uL (1.40-6.50) H 09/29/25 04:22 Lymph # (Auto) 0.95 K/uL (1.20-3.40) L 09/29/25 04:22 Banks # (Auto) 0.55 K/uL (0.11-0.59) 09/29/25 04:22 Eos # (Auto) 0.01 K/uL (0.00-0.50) 09/29/25 04:22 Baso # (Auto) 0.04 K/uL (0.00-0.20) 09/29/25 04:22 Immature Gran # (Auto) 0.10 K/uL (0.01-0.20) 09/29/25 04:22 Absolute Nucleated RBC 0.02 K/uL (0.00-0.12) 09/27/25 04:09 Nucleated RBC % (auto) 0.2 % 09/27/25 04:09 Toxic Granulation 1+ 09/28/25 05:07 Toxic Vacuolation 1+ 09/26/25 04:55 Dohle Bodies 1+ 09/29/25 04:22 Polychromasia 1+ 09/29/25 04:22 Macrocytosis Present 09/29/25 04:22 Target Cells 1+ 09/27/25 04:09 Ovalocytes 1+ 09/27/25 04:09 Echinocytes 1+ 09/29/25 04:22 Acanthocytes (Spur) 1+ 09/29/25 04:22 VBG pH 7.34 (7.36-7.41) L 09/24/25 15:02 VBG pCO2 49 mmHg (38-50) 09/24/25 15:02 VBG pO2 24 mmHg 09/24/25 15:02 VBG HCO3 26 mmol/L 09/24/25 15:02 VBG O2 Saturation < 60.0 % 09/24/25 15:02 VBG Base Excess 0.3 mEq/L 09/24/25 15:02 POC Sodium 142 mmol/L (135-144) 09/24/25 14:54 Sodium 145 mmol/L (136-145) 09/29/25 04:22 POC Potassium 5.0 mmol/L (3.3-5.0) 09/24/25 14:54 Potassium 4.3 mmol/L (3.5-5.1) 09/29/25 04:22 POC Chloride 106 mmol/L (101-112) 09/24/25 14:54 Chloride 115 mmol/L (98-107) H 09/29/25 04:22 Carbon Dioxide 24 mmol/L (21-32) 09/29/25 04:22 POC Total CO2 24 mmol/L (24-31) 09/24/25 14:54 Anion Gap 6 (3-11) 09/29/25 04:22 POC Anion Gap 18.0 mmol/L (16-25) 09/24/25 14:54 POC BUN 45 mg/dl (7-18) H 09/24/25 14:54 BUN 23 mg/dl (6-23) 09/29/25 04:22 Creatinine 1.96 mg/dl (0.6-1.4) H 09/29/25 04:22 POC Creatinine 3.3 mg/dl (0.6-1.3) H 09/24/25 14:54 Est Cr Clr Drug Dosing 31.0 ml/min 09/29/25 04:22 eGFR 34.14 09/29/25 04:22 BUN/Creatinine Ratio 11.7 (10-20) 09/29/25 04:22 Glucose 101 mg/dl (70-99(Fasting)) H 09/29/25 04:22 POC Glucose 92 mg/dl (70-99) 09/29/25 07:31 POC Glucose (other) 95 mg/dl (70-99) 09/29/25 11:24 Estimat Average Glucose 123 mg/dl 09/25/25 04:39 Hemoglobin A1c 5.9 % (4.5-5.6) H 09/25/25 04:39 Lactate 1.1 mmol/L (0.4-2.0) 09/25/25 08:40 Calcium 7.3 mg/dl (8.6-10.3) L 09/29/25 04:22 POC Ioniz Calcium Anthony 1.06 mmol/l (1.12-1.32) L 09/24/25 14:54 Ionized Calcium 1.06 mmol/L (1.12-1.32) L 09/27/25 04:09 Phosphorus 3.2 mg/dl (2.5-4.9) 09/28/25 18:06 Magnesium 2.3 mg/dl (1.7-2.4) 09/29/25 04:22 Total Bilirubin 0.7 mg/dl (0.2-1.0) 09/25/25 04:39 Direct Bilirubin 0.5 mg/dl (0-0.2) H 09/24/25 14:51 AST 47 U/L (13-39) H 09/25/25 04:39 ALT 34 U/L (7-52) 09/25/25 04:39 Alkaline Phosphatase 86 U/L (34-104) 09/25/25 04:39 Total Creatine Kinase 46 U/L (30-223) 09/27/25 04:09 Troponin I High Sens 361.7 pg/ml (0-20) H* D 09/25/25 10:54 B-Natriuretic Peptide 1006 pg/ml (0-100) H 09/24/25 14:51 Total Protein 4.9 gm/dl (6.0-8.3) L 09/25/25 04:39 Albumin 2.5 gm/dl (3.4-5.0) L 09/25/25 04:39 Globulin 2.4 gm/dl (2.5-4.0) L 09/25/25 04:39 Albumin/Globulin Ratio 1.0 (0.9-2) 09/25/25 04:39 25-OH Vitamin D Total 60.9 ng/ml (30-100) 09/24/25 19:22 Procalcitonin 0.34 ng/ml (0-0.5) 09/29/25 04:22 TSH 3.574 uIu/ml (0.300-4.500) 09/26/25 04:55 Random Cortisol Cancelled 09/26/25 04:44 Urine Color Yellow 09/25/25 10:40 Urine Appearance Clear (Clear) 09/25/25 10:40 Urine pH 5.5 (4.5-7.5) 09/25/25 10:40 Ur Specific [place] 1.017 (1.000-1.030) 09/25/25 10:40 Urine Protein 1+ (Negative) H 09/25/25 10:40 Urine Glucose (UA) Negative (Negative) 09/25/25 10:40 Urine Ketones Negative (Negative) 09/25/25 10:40 Urine Blood Trace (Negative) H 09/25/25 10:40 Urine Nitrite Negative (Negative) 09/25/25 10:40 Urine Bilirubin Negative (Negative) 09/25/25 10:40 Urine Urobilinogen Negative (Negative) 09/25/25 10:40 Ur Leukocyte Esterase Negative (Negative) 09/25/25 10:40 Urine WBC (Auto) 0-5 /hpf (0-5) 09/25/25 10:40 Urine RBC (Auto) 0-2 /hpf (0-2) 09/25/25 10:40 U Hyaline Cast (Auto) 3-5 /lpf (0-2) H 09/25/25 10:40 U Epithel Cells (Auto) 6-10 /hpf (0-2) H 09/25/25 10:40 Urine Bacteria (Auto) None Seen (None Seen) 09/25/25 10:40 Hyaline Casts Present /lpf (None Presnt) A 09/25/25 03:56 Granular Casts Present /lpf (None Prsent) A 09/25/25 10:40 Urine Comment 09/25/25 03:56 Nasal Screen MRSA (PCR) Negative (Negative) 09/25/25 Unknown Stl C. cayetanensis PCR Not Detected (NotDetected) 09/26/25 09:30 Stool Rotavirus A PCR Not Detected (NotDetected) 09/26/25 09:30 Stl Adenov F 40/41 PCR Not Detected (NotDetected) 09/26/25 09:30 Stool Astrovirus (PCR) Not Detected (NotDetected) 09/26/25 09:30 Stool Campylobacter PCR Not Detected (NotDetected) 09/26/25 09:30 Stl C. diff Tox B Gene Negative Cdiff Gene (Neg) 09/26/25 09:30 Stl C. diff [id number] NEGATIVE 09/26/25 09:30 Stool Cryptosporidium PCR Not Detected (NotDetected) 09/26/25 09:30 Stl E.coli Shiga Tox PCR Not Detected (NotDetected) 09/26/25 09:30 Stl Enterotoxigenic E PCR Not Detected (NotDetected) 09/26/25 09:30 Stool EPEC (PCR) Not Detected (NotDetected) 09/26/25 09:30 Stool EAEC (PCR) Not Detected (NotDetected) 09/26/25 09:30 Stl E. histolytica PCR Not Detected (NotDetected) 09/26/25 09:30 Stool Giardia Lamblia PCR Not Detected (NotDetected) 09/26/25 09:30 Stool Salmonella PCR Not Detected (NotDetected) 09/26/25 09:30 Stool Sapovirus (PCR) Not Detected (NotDetected) 09/26/25 09:30 Stl P. shigelloides PCR Not Detected (NotDetected) 09/26/25 09:30 Stl Shigella/EIEC PCR Not Detected (NotDetected) 09/26/25 09:30 St Y.enterocolitica PCR Not Detected (NotDetected) 09/26/25 09:30 Stool Vibrio (PCR) Not Detected (NotDetected) 09/26/25 09:30 Stl Vibrio cholerae PCR Not Detected (NotDetected) 09/26/25 09:30 Stl Norovirus GI/GII PCR Not Detected (NotDetected) 09/26/25 09:30 Digoxin 0.7 ng/ml (0.8-2.0) L 09/29/25 09:17 Adenovirus (PCR) Not Detected (NotDetected) 09/24/25 15:02 B. pertussis DNA (PCR) Not Detected (NotDetected) 09/24/25 15:02 B.parapertussis DNA PCR Not Detected (NotDetected) 09/24/25 15:02 C. pneumoniae DNA (PCR) Not Detected (NotDetected) 09/24/25 15:02 Coronavirus OC43 (PCR) Not Detected (NotDetected) 09/24/25 15:02 Coronavirus HKU1 (PCR) Not Detected (NotDetected) 09/24/25 15:02 Coronavirus 229E (PCR) Not Detected (NotDetected) 09/24/25 15:02 SARS-CoV-2 (PCR) Not Detected (NotDetected) 09/24/25 15:02 Coronavirus NL63 (PCR) Not Detected (NotDetected) 09/24/25 15:02 Human Metapneumovir PCR Not Detected (NotDetected) 09/24/25 15:02 Influenza Type A (PCR) Not Detected (NotDetected) 09/24/25 15:02 Influenza Type B (PCR) Not Detected (NotDetected) 09/24/25 15:02 M. pneumoniae (PCR) Not Detected (NotDetected) 09/24/25 15:02 Parainfluenza 1 (PCR) Not Detected (NotDetected) 09/24/25 15:02 Parainfluenza 2 (PCR) Not Detected (NotDetected) 09/24/25 15:02 Parainfluenza 3 (PCR) Not Detected (NotDetected) 09/24/25 15:02 Parainfluenza 4 (PCR) Not Detected (NotDetected) 09/24/25 15:02 RSV (PCR) Not Detected (NotDetected) 09/24/25 15:02 Entero/Rhino (PCR) Not Detected (NotDetected) 09/24/25 15:02 Ref Lab Test Result See Scanned Report 09/25/25 08:40 Impressions Abdomen/Pelvis CT 09/24/25 15:29 EXAM: CT Abdomen and Pelvis Without Intravenous Contrast INDICATION: Vomiting and diarrhea TECHNIQUE: Axial computed tomography images of the abdomen and pelvis without intravenous contrast. Sagittal and coronal reformatted images were created and reviewed. This CT exam was performed using one or more of the following dose reduction techniques: automated exposure control, adjustment of the mA and/or kV according to patient size, and/or use of iterative reconstruction technique. COMPARISON: 02/03/2023 FINDINGS: Limitations: None. Lung bases: There is consolidation in the dependent lower lobes left greater than right. Pleural space: There are small layering bilateral pleural effusions. Heart: Cardiomegaly. Mediastinum: No abnormality noted. ABDOMEN: Liver: Lack of intravenous contrast limits detection of some masses. No abnormality noted. Gallbladder and bile ducts: No calcified stones or surrounding fluid. No ductal dilation. Pancreas: No pancreatic mass, calcification, inflammation or ductal dilation noted. Spleen: No acute abnormality noted. Adrenals: No acute abnormality noted. Kidneys and ureters: Stable bilateral renal cysts most of which clearly appear benign. Others are hyperdense and unchanged. Stomach and bowel: The stomach is collapsed and cannot be optimally assessed. Multiple small and large bowel loops are mildly dilated with fluid and air. Left colonic diverticula noted. Mild thickening of the lateral conal fascia identified which may reflect mild adjacent diverticulitis. No obstructing point. PELVIS: Appendix: Well seen and appears normal. Bladder: Appears normal for the degree of filling. No stones or inflammation. No large mass. Masses may not be detected in the absence of opacification. Reproductive: No abnormalities noted. ABDOMEN and PELVIS: Intraperitoneal space: No free air. No significant fluid collection. Bones/joints: No acute changes. Posterior L4-S1 fusion hardware well-seated and intact. Diffuse degenerative changes. Soft tissues: No acute abnormality noted. Vasculature: Stable atherosclerosis of the aorta with mild aneurysm of the infrarenal segment to 3.3 cm. No hemorrhage. Lymph nodes: No pathologically enlarged lymph nodes. IMPRESSION: 1. Ileus with findings suggestive of mild descending colonic acute diverticulitis. 2. Small layering pleural effusions and compressive bilateral lower lobe consolidation. 3. Stable 3.3 cm infrarenal abdominal aortic aneurysm without hemorrhage. ACR White Paper guidelines (Constance, et al. JACR 2013; 10(10):789-94) suggest abdomen/pelvis CT or MR imaging follow-up in 3 years. ACT 112: N/A Electronically signed by Michelle Fields 09-24-2025 5:21 PM Chest X-Ray 09/28/25 09:30 XR chest 1V portable CLINICAL HISTORY: f/u COMPARISON STUDY: 09/26/2025 FINDINGS: Stable right chest port. Stable cardiomegaly with pulmonary vascular congestion. Stable dense opacity at the left mid and lower lung with obscuration of the left hemidiaphragm. Stable mild hazy opacity at the right lung base. No pneumothorax seen. IMPRESSION: Stable exam. ACT 112: Negative or not required by law. Electronically signed by: Ronni Suarez M.D. 09/28/2025 10:00 AM Diagnostic Findings CBC 09/28/25 09/29/25 Range/Units 18:06 04:22 WBC 9.96 12.13 H (4.8-10.8) K/ul RBC 2.33 L 2.42 L (4.70-6.10) M/uL Hgb 8.5 L 8.8 L (14.0-18.0) g/dL Hct 26.2 L 27.4 L (42.0-52.0) % Plt Count 42 L 50 L (130-400) K/uL Neut # (Auto) 10.48 H (1.40-6.50) K/uL Lymph # (Auto) 0.95 L (1.20-3.40) K/uL Banks # (Auto) 0.55 (0.11-0.59) K/uL Eos # (Auto) 0.01 (0.00-0.50) K/uL Baso # (Auto) 0.04 (0.00-0.20) K/uL Comprehensive Metabolic Panel 09/28/25 09/29/25 Range/Units 18:06 04:22 Sodium 142 145 (136-145) mmol/L Potassium 3.6 4.3 (3.5-5.1) mmol/L Chloride 113 H 115 H (98-107) mmol/L Carbon Dioxide 23 24 (21-32) mmol/L BUN 24 H 23 (6-23) mg/dl Creatinine 2.03 H 1.96 H (0.6-1.4) mg/dl Glucose 116 H 101 H (70-99(Fasting)) mg/dl Calcium 7.7 L 7.3 L (8.6-10.3) mg/dl Intake and Output 09/28/25 09/29/25 09/29/25 22:59 06:59 14:59 Intake Total 809.067 / 1777.067 518 / 0240.942 0194.2 / 1277.2 Output Total 385 / 1686 400 / 1686 Balance 424.067 / 91.067 118 / 91.067 1277.2 / 1277.2 Intake: IV 809.067 / 1427.067 518 / 0819.619 9671.2 / 1277.2 Albumin 25% 12.5 gm In 50 ml @ 50 / 50 50 mls/hr IV ONE ONE Rx#: [id number] Calcium Gluconate 1,000 mg In 60 / 60 116 / 116 60 ml @ 240 mls/hr IV Q15M [facility] Rx#:[id number] Magnesium Sulfate / D5w 1 gm In 86.667 / 276.667 190 / 276.667 100 ml @ 50 mls/hr IV Q2H [facility] Rx#:[id number] Phenylephrine/Nss 100 mg In 250 0 / 0 ml @ 0 MCG/KG/MIN IV .Q0M [facility] Rx#:[id number] Phenylephrine/Nss 25 mg In 250 12.4 / 240.4 228 / 240.4 61.2 / 61.2 ml @ 0.5 MCG/KG/MIN 24.03 mls/ hr IV .[id number] [facility] Rx#:[id number] Piperacillin/Tazobactam 4.5 gm 100 / 300 100 / 300 100 / 100 In 100 ml @ 25 mls/hr IV Q8H [facility] Rx#:[id number] Sodium Chloride 0.9% 1,000 ml @ 500 / 500 1000 / 1000 75 mls/hr IV .[id number] [facility] Rx#: [id number] Output: Urine Amount (Catheter) 385 / 1685 400 / 1685 Coude 385 / 1685 400 / 1685 Other: Weight 80 kg Weight Measurement Method Built in [facility] Medications Administered Home Medications Medication Instructions Recorded Confirmed Last Taken atorvastatin 80 mg tablet 80 mg PO DAILY 04/22/20 09/24/25 08/15/25 cholecalciferol (vitamin D3) 25 1,000 unit PO QAM 04/22/20 09/24/25 08/15/25 mcg (1,000 unit) capsule (Vitamin D3) epinephrine 0.3 mg/0.3 mL 0.3 mg IM DIRECTED PRN Allergic 04/22/20 09/24/25 Unknown injection, auto-injector Reaction nitroglycerin 0.4 mg sublingual 0.4 mg sublingual DIRECTED PRN 04/22/20 09/24/25 Unknown tablet (Nitrostat) Chest Pain tamsulosin 0.4 mg capsule 0.4 mg PO QAM 04/22/20 09/24/25 08/15/25 lisinopril 2.5 mg tablet 2.5 mg PO QAM 02/03/23 09/24/25 08/15/25 albuterol sulfate 90 mcg/actuation 2 inh inhalation Q4H PRN shortness 05/18/25 09/24/25 05/17/25 aerosol inhaler of breath or wheezing budesonide 160 mcg-glycopyr 9 2 inh inhalation BID 08/16/25 12/23/25 11/13/25 mcg-formot 4.8 mcg/actuation HFA inhaler (Breztri Aerosphere) folic acid 1 mg tablet 1 mg PO QAM 05/18/25 09/24/25 08/15/25 prochlorperazine maleate 10 mg 10 mg PO Q6H PRN Nausea And 05/18/25 09/24/25 Unknown tablet Vomiting trazodone 50 mg tablet 50 mg PO HS 05/18/25 09/24/25 08/14/25 pantoprazole 40 mg tablet,delayed 40 mg PO BID #60 tabs 05/21/25 09/24/2508/03 release B-complex with vitamin C 1 cap PO QAM 06/21/25 09/24/25 08/15/25 aspirin 81 mg tablet,delayed 81 mg PO QAM 06/21/25 09/24/25 08/15/25 release dexamethasone 4 mg tablet 8 mg PO DIRECTED PRN DAYS 2,3,4 06/21/25 09/24/25 06/26/25 OF CHEMO lidocaine-prilocaine 2.5 %-2.5 % 1 applic topical DIRECTED PRN 06/21/25 09/24/25 Unknown topical cream ACCESSING MEDIPORT loperamide 1 mg/7.5 mL oral liquid 0.5 mg PO DAILY PRN Diarrhea 06/21/25 09/24/25 Unknown (Imodium A-D) loratadine 10 mg tablet (Claritin) 10 mg PO DAILY PRN START DAY OF 06/21/25 09/24/25 Unknown CHEMO X 5 DAYS. metoprolol succinate 50 mg 50 mg PO BID 06/21/25 09/24/25 08/15/25 tablet,extended release 24 hr ondansetron HCl 8 mg tablet 8 mg PO Q8H PRN NAUSEA/VOMITING 06/21/25 09/24/25 Unknown oxycodone 5 mg tablet 5 mg PO Q4H PRN pain #10 tabs 06/23/25 09/24/25 Unknown L.acidop,casei,lactis,rham-B.lact,zac 1 cap PO QAM 08/15/25 09/24/25 08/15/25 625 mg (10 billion cell) capsule (Advanced Probiotic) Active Medications Generic Name Dose Route Start Last Admin Trade Name Freq PRN Reason Stop Dose Admin Acetylcysteine 2 ml 09/27/25 11:00 09/29/25 10:31 Acetylcysteine 10% Inhal Soln 4 Ml Dispensed By Resp. INH 10/27/25 10:59 Not Given QIDR CHANELLE Albuterol 3 ml 09/27/25 11:00 09/29/25 10:31 Albut/Ipratrop 3mg/0.5mg Neb 3 Ml Vial NEB 10/27/25 10:59 Not Given QIDR CHANELLE Protocol Amiodarone HCl 200 mg 09/27/25 10:30 09/29/25 07:45 Amiodarone 200 Mg Tab PO 10/27/25 10:29 200 mg BIDM CHANELLE Administration Atorvastatin Calcium 80 mg 09/25/25 09:00 09/29/25 07:45 Atorvastatin 40 Mg Tab PO 10/25/25 08:59 80 mg DAILY CHANELLE Administration Calcium/Vitamin D 1 tab 09/28/25 09:00 09/29/25 07:46 Calcium 600mg + Vit D 400 Iu Tab PO 10/28/25 08:59 1 tab BID CHANELLE Administration Fluticasone Furoate 1 puffs 09/24/25 21:45 09/29/25 07:39 Fluticasone Furoate 200mcg 14 Puffs/Inhaler INH 10/24/25 21:44 1 puffs DAILY CHANELLE Administration Folic Acid 1 mg 09/25/25 09:00 09/29/25 07:43 Folic Acid 1 Mg Tab PO 10/25/25 08:59 1 mg QAM CHANELLE Administration Piperacillin Sod/Tazobactam Sod 4.5 gm in 100 mls @ 25 mls/hr 09/26/25 13:00 09/29/25 13:04 Zosyn IV 10/01/25 12:59 25 mls/hr Q8H CHANELLE Administration Protocol Phenylephrine HCl 25 mg in 250 mls @ 24.03 mls/hr 09/28/25 17:50 09/29/25 07:03 Phenylephrine/Nss IV 10/28/25 17:49 0.5 mcg/kg/min .[id number] CHANELLE 24 mls/hr Titration Protocol 0.5 MCG/KG/MIN Lactobacillus Acidophilus 1,250 mg 09/25/25 09:00 09/29/25 07:43 Advanced Probiotic 625 Mg Capsule PO 01/23/26 08:59 1,250 mg QAM CHANELLE Administration Metoprolol Succinate 50 mg 09/24/25 21:45 09/24/25 22:23 Metoprolol Succ 50mg Ext Rel Tab PO 10/24/25 21:44 50 mg BID CHANELLE Administration Midodrine 10 mg 09/29/25 08:00 09/29/25 11:27 Midodrine Hcl 10 Mg Tab PO 10/29/25 07:59 10 mg TID@0800,1200,1700 CHANELLE Administration Pantoprazole Sodium 40 mg 09/24/25 21:00 09/29/25 07:45 Pantoprazole 40 Mg Tab PO 10/24/25 20:59 40 mg BID CHANELLE Administration Umeclidinium/Vilanterol 1 puffs 09/24/25 21:45 09/29/25 07:44 Umeclidinium/Vilanterol 62.5/25mcg 7 Puffs/Inhaler INH 10/24/25 21:44 1 puffs DAILY CHANELLE Administration Vitamin B Complex 1 tab 09/25/25 09:00 09/29/25 07:43 Vitamin B Complex Tab PO 10/25/25 08:59 1 tab QAM CHANELLE Administration PG Care Time/CCT Total # of Minutes Spent Total Time Spent with Patient: Total time spent is greater than 50% in coordination of care (as documented) at patient's floor/unit and/or counseling patient: Coding Level of Care Code 32956 SUB INP/OBS CARE 3/50MIN Diagnoses Demand ischemia I24.89 SVT (supraventricular tachycardia) I47.10 ANDRES (acute kidney injury) N17.9 Hypotension I95.9 Paroxysmal atrial flutter I48.92 ASCVD (arteriosclerotic cardiovascular disease) I25.10 Elevated troponin R79.89 Septic shock A41.9; R65.21
[2025-09-29] MEDS: FUROSEMIDE INJ 20 MG/2 ML VIAL IV STA (16:05)
[2025-09-29] MEDS: MAGNESIUM SULFATE / D5W 1 GM/100 ML BAG IV SCH (21:13)
[2025-09-29] MEDS ORDERED: STAT IV Infusion **Titration per Protocol STA (23:20)
[2025-09-30] MEDS: FUROSEMIDE 40 MG/4 ML VIAL IV ONE ×2 (01:57→08:40)
--- NOTE | 2025-09-30 03:34 | XRay Report ---
EXAM: XR chest 1V portable CLINICAL HISTORY: eval in setting of worsening hypoxia TECHNIQUE: An X-ray image of the chest is obtained in AP projection. COMPARISON: 09/28/2025 08:38:44 [employer]. FINDINGS: Central venous line seen is moderate side. Ill-defined ground-glass opacities noted involving left lower zone - likely congestive changes. Blunting of left costophrenic angle - suggestive of left sided pleural effusion. Minimal blunting of right costophrenic angle - possibility of pleural effusion/thickening. Apparent cardiomegaly. No acute osseous abnormality. IMPRESSION: Central venous line seen is moderate side. Ill-defined ground-glass opacities noted involving left lower zone - likely congestive changes.-reduced Blunting of left costophrenic angle - suggestive of left sided pleural effusion. reduced Minimal blunting of right costophrenic angle - possibility of pleural effusion/thickening. reduced Apparent cardiomegaly.-stable. Electronically signed by Sergo Ozuna 09-30-2025 03:34 AM
[2025-09-30 04:20] LABS: Hematocrit (blood only) 30.8 % (42.0-52.0); Hemoglobin 10.0 g/dL (14.0-18.0); Mean Corpuscular Hemoglobin 36.2 pg (25.0-34.0); Mean Corpuscular Volume 111.6 fL (80.0-100.0); Platelet Count 64 K/uL (130-400); RDW Standard Deviation 63.7 fL (36.4-46.3); Red Blood Count 2.76 M/uL (4.70-6.10); White Blood Count 15.59 K/ul (4.8-10.8)
[2025-09-30 04:33] LABS: Anion Gap 5.0 (3-11); Blood Urea Nitrogen 18.0 mg/dl (6-23); Calcium 7.8 mg/dl (8.6-10.3); Carbon Dioxide 25.0 mmol/L (21-32); Chloride 113.0 mmol/L (98-107); Creatinine Clr Calc Pharmacy 31.5 ml/min; Glucose 119.0 mg/dl (70-99(Fasting)); Magnesium 2.3 mg/dl (1.7-2.4); Potassium 3.8 mmol/L (3.5-5.1); Sodium 143.0 mmol/L (136-145)
[2025-09-30] MEDS: POTASSIUM CHLORIDE CRTAB 20 MEQ TABCR PO STA (06:06)
[2025-09-30] MEDS ORDERED: POTASSIUM PHOS 3 MMOL/1 ML INFUSION IV STA (07:48)
--- NOTE | 2025-09-30 07:49 | Critical Care Progress Note ---
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 The patient follows with Dr. Everett at [facility] oncology. He received 6 cycles of pemetrexed plus carboplatin and Keytruda. Continued on maintenance with pemetrexed and Keytruda. Then transition to docetaxel and ramicurimab. Last therapy was on 09/17/2025. The patient presented to the hospital 09/24/2025 with a complaint of nausea, vomiting and diarrhea for 3 days duration. He was unable to tolerate p.o. Also worsening shortness of breath, does not normally wear oxygen at home. In the emergency department the patient was found to be hypoxic. Imaging of the chest was concerning for pulmonary edema with pleural effusions. BioFire was negative. Required 8 L on admission. Imaging of the abdomen showed ileus and mild descending colonic diverticulitis. The patient was in A-fib with RVR on presentation. Troponins were elevated as well as BNP. He was in ANDRES as well. General surgery and cardiology were both consulted on admission. The patient received fluid resuscitation with 2-1/2 L of fluid. Trial of Lopressor was done however the patient had worsening hypotension and continued to go in and out of A-fib. The patient was transferred to the ICU for pressor support. He was initiated on amiodarone and phenylephrine. He was continued on oxygen supplementation. No further fluid resuscitation was given. Patient remained in the ICU. He remained on phenylephrine. Was treated with Zosyn. Diarrhea resolved. He was seen by cardiology and placed on amiodarone. He was on midodrine, doing well with a regular diet. Transferred out to the floor on 09/28/2025. After transfer the patient went back into rapid A-fib RVR and became hypotensive. He was transferred back to the ICU. The patient went in and out of SVT. He remained on phenylephrine but was weaned off on 09/29/2025. Lopressor and Cardizem were used, the patient flipped in and out of SVT and sinus rhythm. Cardizem infusion was used however he went back into SVT so this was stopped. He has been off of phenylephrine. His oxygenation is improving after Lasix and pulmonary toilet. Reason Critically Ill: Arrhythmia, A-fib RVR and SVT Shock state, septic versus cardiogenic in setting of uncontrolled arrhythmias (resolved) Elevated troponin Heart failure with moderately reduced ejection fraction Acute hypoxic respiratory failure Pulmonary edema and pleural effusions ANDRES on CKD Ileus Diverticulitis Metastatic carcinoma with recent chemotherapy and immunotherapy Thrombocytopenia Neuro: Awake and alert. No neurologic deficits at this time. Cardiac: Shock state Arrhythmia, A-fib RVR and SVT Elevated troponin Heart failure with moderately reduced ejection fraction Not currently on anticoagulation, has thrombocytopenia patient deferred anticoagulation previously. Was volume resuscitated for hypovolemia on presentation. Received 3 L in boluses, was on maintenance fluids. Becomes hypotensive when he goes into arrhythmias. Blood pressure is much better when he is sinus rhythm and rate controlled. Echocardiogram was performed. Moderately reduced systolic function with an EF of 40 to 45% and global hypokinesis. Grade 2 diastolic dysfunction. Normal RV size and function. Mild aortic stenosis, mild to moderate pulmonic regurg, mild MR and TR. Cardiology has been consulted. Was on amiodarone infusion, transition to p.o. amiodarone 200 mg twice daily by cardiology. Have not started beta-blockers given continued need for vasopressors. Has also been intermittently bradycardic. Phenylephrine was weaned off after midodrine was added. Hopefully midodrine can be slowly tapered off as he continues to improve. Cortisol level is borderline 18, got a one-time dose of 100 mg of hydrocortisone without significant improvement in blood pressure. Initially responded to Cardizem push and labetalol push. Went back into SVT on Cardizem infusion. Cardizem was discontinued. Received Lasix overnight, oxygenation is improving, x-ray is improving. Will need to continue to intermittently diurese to achieve euvolemic state. Respiratory: Acute hypoxic respite failure Underlying COPD Pulmonary edema with bilateral pleural effusions (left Thora 08/16/2025, appears transudative with low protein and LDH. Negative cultures) CT imaging was reviewed by myself small to moderate bilateral pleural effusions appreciated. Interlobular septal thickening suggesting pulmonary edema. There is also what appears to be an infiltrate, most appreciated on the left. Patient has been started on Zosyn and azithromycin. Completed therapy for both. No indication for further antibiotics at this time. Continue DuoNebs. Respiratory BioFire was negative. Procalcitonin 1.13 -->0.66-->0.34. MRSA nares negative. Sputum culture negative. Continue oxygen supplementation, wean as tolerated. Patient has a weak cough, has been laying in bed a lot. Continue pulmonary toilet. Needs to get out of bed and needs to be sitting up all day long. Respiratory therapy is working with him, he has I-S, flutter valve, CoughAssist, chest physiotherapy and mucolytic's. Chest x-ray is improving after Lasix overnight, will get an additional dose today. Continue to intermittently diurese. Please pay close attention to his electrolytes and replace as indicated. GI: Ileus Diverticulitis Diarrhea Diarrhea resolved. Last day of the Zosyn 09/29/2025. Protonix 40 twice daily. Diet ordered. RENAL/LYTES: ANDRES on CKD Electrolyte disturbance Received 3 L crystalloid resuscitation. ANDRES is improving. Making good urine. Monitor and replace electrolytes. Needs to continue with intermittent diuresis. Avoid maintenance fluids. : BPH Urinary retention Required straight cath, continue to retain. Valenzuela catheter placed. Will stop Flomax given hypotension. Keep Valenzuela. ENDO: Blood glucose acceptable. A1c slightly elevated at 5.9. TSH okay. Cortisol is borderline 18.9, got 100 mg dose of hydrocortisone, did not respond to this so it was not continued. HEME: Metastatic carcinoma on chemo and immunotherapy Thrombocytopenia Place SCDs, holding heparin. Presentation could be cardiotoxicity given recent chemotherapy. Could also be immuno therapy related. Palliative care consult was placed over the weekend. Appreciate assistance with case. ID: Colitis on CT. Pneumonia as well. Completed azithromycin and Zosyn. Procalcitonin is low. Overall condition is improving. No indication for further antibiotics at this time. Blood cultures show no growth to date. Has an infiltrate on CT, Pro-Jd slightly elevated but downtrending. Urine does not look infected. MRSA nares negative. BioFire was negative. Sputum culture showed normal respiratory jean claude. Feeding: Regular Fluids: None Analgesia: Oxy Activity: Up to chair, please out of bed is much as possible. Thromboprophylaxis: SCD Ulcer prophylaxis: Pantoprazole Glycemic control: Not indicated Bowels: Diarrhea has resolved, may require bowel regimen. Indwelling catheters: PIV, Mediport, Valenzuela Antibiotics: None Plan: Patient can go out of the ICU. I recommend a PCU bed if possible. He has been off of phenylephrine for quite some time. Still going into SVT, rate is usually around 130. Attempted Cardizem infusion however he continued to flip in and out of SVT. Cardiology has been consulted, not sure if patient would be a candidate for ablation given his underlying malignancy diagnosis. However we have been unsuccessful with medical therapy to keep his heart rate under control. Would appreciate their assistance with this case. Palliative care has been consulted. I appreciate their assistance with case. Please continue to intermittently diurese and monitor electrolytes and replace as indicated. Patient needs to work with physical therapy and he needs to be up out of bed is much as possible. Should be sitting in chair sitting up in bed. Continue aggressive pulmonary toilet. I have personally spent 55 minutes of critical care time in the direct management of this patient. This is a life/limb threatening event. This includes time spent evaluating patient, direct bedside care, chart review, placing orders, interpretation of diagnostic studies, discussion with consultants, patient, and family members, as well as other required patient management activities. This time is exclusive of all separately billable procedures, and teaching time and separate from and in addition to any other critical care service time. Admission and Anticipated Discharge Date Admission Date: September 24, 2025 Subjective Past 24-hour events: Remained in ICU yesterday due to phenylephrine requirement. Was in and out of SVT yesterday. Responded to Lopressor and Cardizem. Was initiated on Cardizem infusion. Was able to get off of phenylephrine drip with this. Was given Lasix yesterday due to episode of hypoxia overnight. He still remained off of phenylephrine after this and is oxygenating better. Chest x-ray is improving after Lasix. Pleural effusions are decreasing in size. Pulmonary edema is apparent being. Was also continued on pulmonary toilet, was Sitting up in bed yesterday. Rounding: Patient is laying down after breakfast this morning. He is only on 5 L via nasal cannula. Blood pressure is good, MAP is in the 80s. He has been off of phenylephrine overnight. He is on a Cardizem drip at 5 however he remained in SVT with rates in the 130s. We have stopped the Cardizem drip as it does not seem to be helping. Chest x-ray is improving with diuresis. Intake: 2507 mL Output: 2976 mL Net: Negative for 60 mL Mechanical ventilation: 5 L via nasal cannula Feeding: Regular diet IV infusions: Cardizem Indwelling catheters: Valenzuela, Mediport, peripheral IVs Laboratory: CBC: WBC 15.5, hemoglobin 10.0, platelets 64 Chemistry: Sodium 143, potassium 3.8 (replaced), chloride 113, bicarb 25, BUN 18, creatinine 1.93, glucose 119, calcium 7.8 (replaced), Phos 3.0, magnesium 2.3 ABG: None Review of Systems Review of Systems: Negative except as in HPI. Physical Exam Physical Exam: Physical examination: General: Well-appearing, well-nourished and not in acute distress. HEENT: Normocephalic, atraumatic. Extraocular movements intact. Sclera are nonicteric. No JVD appreciated. Skin: Warm and dry. No rashes appreciated. No jaundice appreciated. Cardiovascular: Heart is a regular rate and rhythm. No murmurs appreciated on my exam. Lungs: Coarse with crackles, diminished at bases. On nasal cannula. Nontachypneic. Saturation 93%. Abdomen: Nondistended, nontender to palpation. No masses appreciated. Musculoskeletal: Normal muscle mass and tone. No gross joint deformity abnormalities. No effusions appreciated. Neurologic: Awake and alert, oriented. CN II through XII are grossly intact. Speech is fluent. Nonfocal exam. Psychiatric: Appropriate cooperative during my exam. Results & Data Results & Data Vital Signs (Past 12 Hours) Vital Signs Temp Pulse Pulse Resp BP BP Pulse Ox 09/30/25 07:00 73 24 93 09/30/25 06:00 36.5 C 75 128/74 91 09/30/25 05:00 36.5 C 69 20 128/63 97 09/30/25 04:30 134/71 09/30/25 04:30 134/71 09/30/25 04:30 134/71 09/30/25 04:30 78 26 H 95 09/30/25 04:00 73 20 126/71 97 09/30/25 03:30 124/63 97 09/30/25 03:00 78 112/97 94 09/30/25 02:35 79 22 94 09/30/25 02:30 78 23 121/71 94 09/30/25 02:23 78 09/30/25 01:52 105/66 09/30/25 01:52 105/66 09/30/25 01:52 105/66 09/30/25 01:52 105/66 09/30/25 01:52 105/66 09/30/25 01:51 138 H 32 H 87 L 09/30/25 01:30 117/55 L 09/30/25 01:30 117/55 L 09/30/25 01:30 117/55 L 09/30/25 01:30 117/55 L 09/30/25 01:30 117/55 L 09/30/25 01:30 81 25 H 78 L 09/30/25 01:00 110/70 09/30/25 01:00 110/70 09/30/25 01:00 110/70 09/30/25 01:00 110/70 09/30/25 01:00 71 24 90 09/30/25 01:00 136 H 09/30/25 00:31 114/65 09/30/25 00:31 114/65 09/30/25 00:31 114/65 09/30/25 00:31 114/65 09/30/25 00:31 114/65 09/30/25 00:30 70 30 H 89 L 09/30/25 00:00 136 H 19 92 09/30/25 00:00 94/77 L 09/30/25 00:00 94/77 L 09/30/25 00:00 94/77 L 09/29/25 21:30 135 H 25 H 97/59 L 92 09/29/25 21:15 135 H 25 H 108/79 94 09/29/25 21:00 09/29/25 21:00 92/67 L 09/29/25 21:00 135 H 24 92/67 L 95 09/29/25 20:45 139 H 105/76 09/29/25 20:01 133 H 21 97 09/29/25 19:45 36.5 C 136 H 26 H 103/70 96 O2 Del Method O2 Flow Rate FiO2 09/30/25 07:00 7 09/30/25 06:00 Oxymask 6 09/30/25 05:00 Oxymask 6 09/30/25 04:30 09/30/25 04:30 09/30/25 04:30 09/30/25 04:30 09/30/25 04:00 BiPAP 60 09/30/25 03:30 BiPAP 09/30/25 03:00 BiPAP 09/30/25 02:35 60 09/30/25 02:30 BiPAP 09/30/25 02:23 09/30/25 01:52 09/30/25 01:52 09/30/25 01:52 09/30/25 01:52 09/30/25 01:52 09/30/25 01:51 Oxymask 12 09/30/25 01:30 09/30/25 01:30 09/30/25 01:30 09/30/25 01:30 09/30/25 01:30 09/30/25 01:30 Nasal Cannula 4 09/30/25 01:00 09/30/25 01:00 09/30/25 01:00 09/30/25 01:00 09/30/25 01:00 09/30/25 01:00 09/30/25 00:31 09/30/25 00:31 09/30/25 00:31 09/30/25 00:31 09/30/25 00:31 09/30/25 00:30 Nasal Cannula 4 09/30/25 00:00 Nasal Cannula 4 09/30/25 00:00 09/30/25 00:00 09/30/25 00:00 09/29/25 21:30 Nasal Cannula 4 09/29/25 21:15 Nasal Cannula 4 09/29/25 21:00 Nasal Cannula 4 09/29/25 21:00 09/29/25 21:00 Nasal Cannula, High Flow Nasal Cannula 4 09/29/25 20:45 09/29/25 20:01 Nasal Cannula 7 09/29/25 19:45 High Flow Nasal Cannula 8 Coding Level of Care Code 25396 SUB INP/OBS CARE 3/50MIN Diagnoses Dysrhythmia I49.9 Shock R57.9 Hypoxia R09.02 Elevated troponin R79.89 Acute kidney injury superimposed on stage 3a chronic kidney disease N17.9; N18.31 Diverticulitis K57.92 Ileus K56.7 Acute hypoxic respiratory failure J96.01
[2025-09-30] MEDS: CALCIUM GLUCONATE 1,000 MG/60 ML BAG IV SCH (08:29)
[2025-09-30] MEDS: POTASSIUM PHOSPHATE 21 MMOL in SODIUM CHLORIDE 0.9% 500 ML IV ONE (08:29)
[2025-09-30] MEDS ORDERED: POTASSIUM CHLORIDE CRTAB 20 MEQ TABCR PO ONE (09:34)
--- NOTE | 2025-09-30 09:35 | Cardiology Progress Note ---
Date of Service September 30, 2025 Assessment & Plan (1) SVT (supraventricular tachycardia): (2) Hypotension: (3) Paroxysmal atrial flutter: (4) Shock: (5) Dysrhythmia: (6) Hypoxia: (7) ASCVD (arteriosclerotic cardiovascular disease): Plan 80-year-old male with metastatic malignancy with unknown primary (previously treated with pemetrexed and Keytruda) who developed nausea, vomiting, diarrhea, poor oral intake, and progressive weakness after initiation of Ramucirumab (C yramza) and docetaxel (Taxotere) on September 17, 2025. Patient ultimately presented to the [facility] ER on 09/24/2025 hypoxic (84%), hypotensive (74/54), and tachycardic (150 bpm). Laboratory work with acute kidney injury (creatinine 3.25 mg/dL). CBC with pancytopenia, marked thrombocytopenia (40K). High sensitivity troponin elevated (611.8 -> 679.6 -> 635.7 -> 535.6 pg/mL), representing demand ischemia in the setting of critical illness. Echocardiography with moderate reduction in LV systolic function (EF 40-45%) without regional wall motion abnormalities. Patient asymptomatic in regards to overt angina. EKG and telemetry with ongoing paroxysms of narrow complex tachycardia consistent with SVT/PAT, possible atrial flutter with diffuse STT wave depression with associated hypotension, asymptomatic. Suspect adverse reactions to chemotherapy, cardiovascular toxicity, hypovolemic shock, acute hypoxic respiratory failure, probable pneumonia. Off phenylephrine. Recommendations: * Supplement potassium orally. * Discontinue IV diltiazem * Resume beta-abida therapy with metoprolol succinate, 25 mg twice a day to start * Increase amiodarone to 200 mg TID * Continue midodrine 10 mg TID * Maintain telemetry. * EKG in AM * Risks of intermediate anticoagulation appear greater than the benefit Admission and Anticipated Discharge Date Admission Date: September 24, 2025 Supervising Physician Co-Signing Physician Notes I have personally performed a history and physical examination on the patient. I have reviewed the advance practitioner's documentation, and I agree with, and take responsibility for the plan of care. 80-year-old male with metastatic malignancy presenting with hypovolemic shock secondary to nausea, vomiting, poor p.o. intake, and diarrhea. Episodes of SVT recorded on telemetry overnight without associated symptoms. Recommend resume beta-abida therapy and supplement potassium as indicated. Titrate amiodarone to 200 mg 3 times daily. Continue midodrine for blood pressure support. Risks of long-term anticoagulation appears to outweigh benefit at this time. James Robert DO, [facility] Subjective Patient seen and examined. Chart, medications, and telemetry reviewed. Transferred back to the ICU secondary to atrial arrhythmias with associated hypotension, asymptomatic. BP improved, off phenylephrine Patient denies palpitations, chest pain, or worsening shortness of breath Cough productive of thick green sputum that is difficult to expectorate, without subjective fevers or chills Diarrhea resolved; stools loose. Review of Systems Review of Systems: Complete review of systems is as stated above, negative, or noncontributory. Physical Exam Physical Exam: General: Resting comfortable, chronically ill appearing. Skin: Pallor HENT: Normocephalic. Atraumatic. Eyes: PER. Conjunctiva pink, sclera pale. Neck: No JVD. + HJR. Heart: Regular at 80 bpm. Soft systolic murmur. No rub. Lungs: Decreased. Diminished. Mild expiratory wheeze. Absent breath sounds at the left base. Abdomen: +BS. Soft. Nontender. No masses or organomegaly. Extremities: No distal edema. Limited neurological examination is without focal deficits. Pulses: radial=2/4, posterior tibial=1-2/4 on the left and 2/4 on the right Results & Data Vital Signs (Past 12 Hours) Vital Signs Temp Pulse Pulse Resp BP Pulse Ox O2 Del Method 09/30/25 09:00 82 19 90 09/30/25 09:00 117/09/30/25 09:00 11709/30/25 09:00 117/09/30/25 09:00 117/09/30/25 08:30 131 H 27 H 88 L 09/30/25 08:30 09/30/25 08:30 09/30/25 08:30 09/30/25 08:30 09/30/25 08:30 101/09/30/25 08:00 113/09/30/25 08:00 113/09/30/25 08:00 113/09/30/25 08:00 113/62 09/30/25 08:00 73 21 91 09/30/25 08:00 71 09/30/25 08:00 36.6 C 09/30/25 07:30 81 25 H 84 L 09/30/25 07:30 129/59 L 09/30/25 07:30 129/59 L 09/30/25 07:30 129/59 L 09/30/25 07:30 129/59 L 09/30/25 07:00 72 24 95 09/30/25 07:00 122/56 L 09/30/25 07:00 122/56 L 09/30/25 07:00 122/56 L 09/30/25 07:00 122/56 L 09/30/25 07:00 73 24 93 09/30/25 06:00 36.5 C 75 128/74 91 Oxymask 09/30/25 05:00 36.5 C 69 20 128/63 97 Oxymask 09/30/25 04:30 134/71 09/30/25 04:30 134/71 09/30/25 04:30 134/71 09/30/25 04:30 78 26 H 95 09/30/25 04:00 73 20 126/71 97 BiPAP 09/30/25 03:30 124/63 97 BiPAP 09/30/25 03:00 78 112/97 94 BiPAP 09/30/25 02:35 79 22 94 09/30/25 02:30 78 23 121/71 94 BiPAP 09/30/25 02:23 78 09/30/25 01:52 105/66 09/30/25 01:52 105/66 09/30/25 01:52 105/66 09/30/25 01:52 105/66 09/30/25 01:52 105/66 09/30/25 01:51 138 H 32 H 87 L Oxymask 09/30/25 01:30 117/55 L 09/30/25 01:30 117/55 L 09/30/25 01:30 117/55 L 09/30/25 01:30 117/55 L 09/30/25 01:30 117/55 L 09/30/25 01:30 81 25 H 78 L Nasal Cannula 09/30/25 01:00 110/70 09/30/25 01:00 110/70 09/30/25 01:00 110/70 09/30/25 01:00 110/70 09/30/25 01:00 71 24 90 09/30/25 01:00 136 H 09/30/25 00:31 114/65 09/30/25 00:31 114/65 09/30/25 00:31 114/65 09/30/25 00:31 114/65 09/30/25 00:31 114/65 09/30/25 00:30 70 30 H 89 L Nasal Cannula 09/30/25 00:00 136 H 19 92 Nasal Cannula 09/30/25 00:00 94/77 L 09/30/25 00:00 94/77 L 09/30/25 00:00 94/77 L Laboratory Results CBC 09/30/25 Range/Units 03:57 WBC 15.59 H (4.8-10.8) K/ul RBC 2.76 L (4.70-6.10) M/uL Hgb 10.0 L (14.0-18.0) g/dL Hct 30.8 L (42.0-52.0) % Plt Count 64 L (130-400) K/uL Comprehensive Metabolic Panel 09/30/25 Range/Units 03:57 Sodium 143 (136-145) mmol/L Potassium 3.8 (3.5-5.1) mmol/L Chloride 113 H (98-107) mmol/L Carbon Dioxide 25 (21-32) mmol/L BUN 18 (6-23) mg/dl Creatinine 1.93 H (0.6-1.4) mg/dl Glucose 119 H (70-99(Fasting)) mg/dl Calcium 7.8 L (8.6-10.3) mg/dl Intake and Output 09/29/25 09/30/25 09/30/25 22:59 06:59 14:59 Intake Total 144.40 / 2431.787 465.787 / 2431.787 264.750 / 264.750 Output Total 800 / 2976 1675 / 2976 400 / 400 Balance -655.60 / -544.213 -1209.213 / -544.213 -135.250 / -135.250 Intake: IV 144.40 / 2031.787 465.787 / 2031.787 264.750 / 264.750 Calcium Gluconate 1,000 mg In 120 / 120 60 ml @ 240 mls/hr IV Q15M [facility] Rx#:[id number] Magnesium Sulfate / D5w 1 gm In 196.667 / 196.667 100 ml @ 50 mls/hr IV Q2H [facility] Rx#:[id number] Phenylephrine/Nss 25 mg In 250 44.40 / 419.12 169.12 / 419.12 0 / 0 ml @ 0 MCG/KG/MIN IV .Q0M [facility] Rx#:[id number] Piperacillin/Tazobactam 4.5 gm 100 / 300 100 / 300 100.000 / 100.000 In 100 ml @ 25 mls/hr IV Q8H [facility] Rx#:[id number] dilTIAZem HCL 125 mg In 44.750 / 44.750 Dextrose 5% 100 ml @ 0 MG/HR IV .Q0M [facility] Rx#:[id number] Output: Urine Amount (Catheter) 800 / 2975 1675 / 2975 400 / 400 Coude 800 / 2975 1675 / 2975 400 / 400 Other: Weight 81 kg Weight Measurement Method Built in [facility] Diagnostic Findings Telemetry: Currently sinus in the 80's. paroxysms of SVT. No VT. No VF. PG Care Time/CCT Total # of Minutes Spent Total Time Spent with Patient: Total time spent is greater than 50% in coordination of care (as documented) at patient's floor/unit and/or counseling patient: Coding Level of Care Code 75224 SUB INP/OBS CARE 3/50MIN Diagnoses SVT (supraventricular tachycardia) I47.10 Hypotension I95.9 Paroxysmal atrial flutter I48.92 Shock R57.9 Dysrhythmia I49.9 Hypoxia R09.02 ASCVD (arteriosclerotic cardiovascular disease) I25.10
--- NOTE | 2025-09-30 10:21 | Palliative Care Consultation ---
Date of Consultation September 30, 2025 Assessment & Plan (1) Shortness of breath: (2) Palliative care by specialist: (3) Counseling regarding goals of care: Met with patient and his Dalila and daughter to discuss goals of care from 15:00 - 15:35. Pt states that he is understanding that his cancer treatment has made his heart failure worse and that he was warned of this by Dr Everett. He shared that he understands that his cancer cannot be cured but would like to know from Dr Everett if there is anything that can be offered that will help to give him more time. We discussed his HPI and current critical illness, he verbalized understanding that his cancer is advancing and shared that he would like to discuss his prognosis with Dr Everett. I reached out to Dr. Everett via [employer] and shared with Ed and Dalila that Dr Everett responded that chemotherapy might do more harm than good and given his declining health, hospice would be appropriate. Dalila sharaed that she agrees with this and they questioned continuing on current treatments to try to optimize his health with plan to discharge to home with hospice. Ed shared that he most values being home and would prefer to be at home at the time of his . Dalila supports his wishes and requests referral to hospice be made, not expressing a preference for hospice agency. Discussed hospice benefit: an interdisciplinary program offered by nurses, nurses aides, social workers, chaplains and a medical operations supervisor for patients with a terminal condition and a life expectancy of less than 6 months. This is covered by Medicare at 100%/no out of pocket expense to patient and all meds/supplies needed by patient for the reason they are on hospice are paid for/covered by hospice. The goal is assure quality of life of the patient in their home setting (home, senior living, inpatient hospice setting) by providing symptoms management, psychosocial and spiritual support. However, they cannot offer 24 hours care and if the family is unable to provide that care, they will have to consider personal care with out of pocket cost vs. senior living placement. We discussed the goals of hospice as a patient service and the goals of care; we discussed EOL trajectories and transitions ashish the emotional impact of realizing mortality as a concrete reality from prior abstract considerations. They were reassured that no matter where they are along this trajectory, they are not alone - their medical team will remain by their side through their journey. Hospice care will also make short-term inpatient care available when pain or symptoms become too difficult to manage at home or when caregivers need respite time. Hospice care can be provided wherever the patient lives, includingpersonal care homes or nursing homes. Hospice care is provided by a team that focuses on the patients needs. The team usually includes clergy, home health aides, hospice physicians, nurses, social workers, trained volunteers, and other specialized therapists if needed. A patients personal physician may also be included. Discussed code status and helped them understand that CPR is only done after a person has and involves uncomfortable and invasive procedures that, if successful. have high risk of multiple complications including but not limited to rib fractures, pneumo/hemothorax, ANDRES, ventilator dependence, anoxic brain injury, and exterminator helper termite/permanent cognitive and functional deficits. Ed shared that he has an advanced directive that documents his wishes for DNR/DNI as well as designating his as primaary HCPOA and son Ronni Farr as secondary HCPOA. In short, Ed requests DNR/DNI, but continue to optimize his health throughout admission with plan for discharge to home with hospice when that can be arranged. If he decompensates during admission plan is to transition to STATISTICS TEACHER. Plan as above History of Present Illness Reason for Consultation: goals of care Requesting Physician: Saturnino Buenrostro MD Attending Physician: Saturnino Buenrostro MD History of Present Illness Wilfred Farr is a complex 80-year-old male patient with metastatic malignancy with unknown primary who was recently hospitalized at [facility] in August 2025, presenting at that time with acute on chronic dyspnea attributed to acute decompensated heart failure with preserved ejection fraction and a large left pleural effusion, receiving IV furosemide and undergoing thoracentesis on August 06 with transudative findings. Echocardiography at that time revealed preserved LV systolic function, EF 55% with mild tricuspid regurgitation and moderate mitral regurgitation, trivial loculated apical right lateral pericardial effusion without tamponade physiology. A week ago Tuesday Mr. Farr began a new chemotherapy regimen consisting of Ramucirumab (Cyramza) and docetaxel (Taxotere), thereafter developing significant nausea, vomiting, and diarrhea. Patient describes very poor oral intake though able to take medications. He notes progressive weakness, his unable to care for him at home. Upon presentation to the [facility] on 09/24/2025 patient was hypoxic (84%), hypotensive (74/54), and tachycardic (150 bpm). EKG revealed narrow complex tachycardia consistent with SVT/PAT, possible atrial flutter with diffuse STT wave depression. High sensitivity troponin elevated as follows: 611.8 -> 679.6 -> 635.7 -> 535.6 pg/mL. Patient received 1.5 L fluid resuscitation and IV antibiotics in the ER. Patient was initially admitted to telemetry and ultimately transferred to the ICU overnight due to tachycardia and hypotension requiring vasopressor support with Abram-Synephrine. IV Amiodarone infusion initiated. Review of telemetry reveals supraventricular tachyarrhythmias SVT, PAT, AVNRT, atrial flutter/fibrillation. CBC notable for pancytopenia including marked thrombocytopenia. Chest x-ray with interstitial pulmonary edema and bibasilar opacities suggestive of pneumonia, small to moderate left pleural effusion. CT imaging of the abdomen and pelvis revealed an ileus with findings suggesting mild descending colonic acute diverticulitis. Blood cultures pending. F/w [facility] oncology, Dr. Everett. Diagnosed in 2023; PET scan done on 04/23/24 which revealed metabolically active pleural-based lung nodules suspicious for metastases and metabolically active prevascular and left suprahilar lymphadenopathy. Completed 6 cycles of combination of pemetrexed plus carboplatin Keytruda with overall good tolerance. Follow-up PET scan done after 4 cycles of chemotherapy revealed good response. Was on maintenance treatment including combination of pemetrexed and Keytruda. Follow-up PET scan done on 08/07/25 revealed disease progression. Now on combination Docetaxel and Ramucirumab; last received chemotherapy on 09/17/25. Allergies Allergy/AdvReac Type Severity Reaction Status Date / Time bee venom protein (honey bee) Allergy Severe ANAPHYLAXIS Verified 06/21/25 20:53 cephalexin [From Keflex] Allergy Unknown CAN'T Verified 06/21/25 20:53 MD CHIDI ADDED TO LIST Home Medications Medication Instructions Recorded Confirmed Type atorvastatin 80 mg tablet 80 mg PO DAILY 04/22/20 09/24/25 History cholecalciferol (vitamin D3) 25 1,000 unit PO QAM 04/22/20 09/24/25 History mcg (1,000 unit) capsule (Vitamin D3) epinephrine 0.3 mg/0.3 mL 0.3 mg IM DIRECTED PRN Allergic 04/22/20 09/24/25 History injection, auto-injector Reaction nitroglycerin 0.4 mg sublingual 0.4 mg sublingual DIRECTED PRN 04/22/20 09/24/25 History tablet (Nitrostat) Chest Pain tamsulosin 0.4 mg capsule 0.4 mg PO QAM 04/22/20 09/24/25 History lisinopril 2.5 mg tablet 2.5 mg PO QAM 02/03/23 09/24/25 History albuterol sulfate 90 mcg/actuation 2 inh inhalation Q4H PRN shortness 05/18/25 09/24/25 History aerosol inhaler of breath or wheezing budesonide 160 mcg-glycopyr 9 2 inh inhalation BID 05/18/25 09/24/25 History mcg-formot 4.8 mcg/actuation HFA inhaler (Breztri Aerosphere) folic acid 1 mg tablet 1 mg PO QAM 05/18/25 09/24/25 History prochlorperazine maleate 10 mg 10 mg PO Q6H PRN Nausea And 05/18/25 09/24/25 History tablet Vomiting trazodone 50 mg tablet 50 mg PO HS 05/18/25 09/24/25 History pantoprazole 40 mg tablet,delayed 40 mg PO BID #60 tabs 05/21/25 09/24/25 Rx release B-complex with vitamin C 1 cap PO QAM 06/21/25 09/24/25 History aspirin 81 mg tablet,delayed 81 mg PO QAM 06/21/25 09/24/25 History release dexamethasone 4 mg tablet 8 mg PO DIRECTED PRN DAYS 2,3,4 06/21/25 09/24/25 History OF CHEMO lidocaine-prilocaine 2.5 %-2.5 % 1 applic topical DIRECTED PRN 06/21/25 09/24/25 History topical cream ACCESSING MEDIPORT loperamide 1 mg/7.5 mL oral liquid 0.5 mg PO DAILY PRN Diarrhea 06/21/25 09/24/25 History (Imodium A-D) loratadine 10 mg tablet (Claritin) 10 mg PO DAILY PRN START DAY OF 06/21/25 09/24/25 History CHEMO X 5 DAYS. metoprolol succinate 50 mg 50 mg PO BID 06/21/25 09/24/25 History tablet,extended release 24 hr ondansetron HCl 8 mg tablet 8 mg PO Q8H PRN NAUSEA/VOMITING 06/21/25 09/24/25 History oxycodone 5 mg tablet 5 mg PO Q4H PRN pain #10 tabs 06/23/25 09/24/25 Rx L.acidop,casei,lactis,rham-B.lact,zac 1 cap PO QAM 08/15/25 09/24/25 History 625 mg (10 billion cell) capsule (Advanced Probiotic) Patient History Medical History (Updated 09/30/25 @ 13:58 by MARINA Owens) Demand ischemia PAD (peripheral artery disease) Mild bilateral ICA disease (per 2019 carotid duplex) Arterial doppler of LE showed mild PAD on right side (April 2021) History of Mohs micrographic surgery for skin cancer History of gout History of melanoma Hyperlipidemia BPH (benign prostatic hyperplasia) Myocardial Infarction 1996 > anterior wall PR Kidney stone 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 Surgical History History of urologic surgery History of cancer surgery bladder History of cystoscopy History of tooth extraction History of lithotripsy recent--08/21/21 @ [place] History of cardiac cath 2016 > 1 STENT > [facility] Hx of colonoscopy History of lumbar spinal fusion 2010 1968 Family History Father Diabetes Grandmother (Paternal) Diabetes Other Cancer Coronary heart disease Hypertension No family history of adverse response to anesthesia Social History Smoking Status: Current every day smoker Tobacco Type: Cigarettes Cigarettes Per Day: 3; Second Hand Exposure: Yes; Do You Dip or Chew Tobacco: No; Hx Alcohol Use: No Hx Substance Use: No Preferred Language: Belgian Communication Ability: Effective Product Planner Required: No Beliefs That Will Affect Care: None marital status: Current Living Situation: Spouse Current Living Situation Comment: with Feels Safe at Home: Yes Assistive Devices: Walker Review of Systems Review of Systems: All systems reviewed & are unremarkable except as noted in HPI & below Physical Exam Constitutional: well developed, + ill appearing, + thin, cooperative and comfortable Eyes: PERRL, conjunctivae normal, anicteric sclerae Neck: trachea midline, no thyromegaly Respiratory: + cough, able to speak in complete sente nces and + tachypneic; no labored breathing GODWIN Cardiovascular: Rate/Rhythm: + tachycardic; + abnormal rhythm Heart Sounds: normal S1 and normal S2 Gastrointestinal (Abdomen): normal bowel sounds, soft, nontender, no hepatosplenomegaly Skin: no rashes, warm and dry + pallor Neurologic: PERRL, EOMI, accommodation nl, no face palsy, no dysarthria generalized weakness Psychiatric: A+Ox3, euthymic affect Results & Data Vital Signs (Past 12 Hours) Vital Signs Temp Pulse Pulse Resp BP Pulse Ox O2 Del Method 09/30/25 09:00 82 19 90 09/30/25 09:00 117/62 09/30/25 09:00 117/62 09/30/25 09:00 117/62 09/30/25 09:00 117/62 09/30/25 08:30 131 H 27 H 88 L 09/30/25 08:30 101/67 09/30/25 08:30 101/67 09/30/25 08:30 101/67 09/30/25 08:30 101/67 09/30/25 08:30 101/67 09/30/25 08:00 113/62 09/30/25 08:00 113/62 09/30/25 08:00 113/62 09/30/25 08:00 113/62 09/30/25 08:00 73 21 91 09/30/25 08:00 71 09/30/25 08:00 36.6 C 09/30/25 07:30 81 25 H 84 L 09/30/25 07:30 129/59 L 09/30/25 07:30 129/59 L 09/30/25 07:30 129/59 L 09/30/25 07:30 129/59 L 09/30/25 07:00 72 24 95 09/30/25 07:00 122/56 L 09/30/25 07:00 122/56 L 09/30/25 07:00 122/56 L 09/30/25 07:00 122/56 L 09/30/25 07:00 73 24 93 09/30/25 06:00 36.5 C 75 128/74 91 Oxymask 09/30/25 05:00 36.5 C 69 20 128/63 97 Oxymask 09/30/25 04:30 134/71 09/30/25 04:30 134/71 09/30/25 04:30 134/71 09/30/25 04:30 78 26 H 95 09/30/25 04:00 73 20 126/71 97 BiPAP 09/30/25 03:30 124/63 97 BiPAP 09/30/25 03:00 78 112/97 94 BiPAP 09/30/25 02:35 79 22 94 09/30/25 02:30 78 23 121/71 94 BiPAP 09/30/25 02:23 78 09/30/25 01:52 105/66 09/30/25 01:52 105/66 09/30/25 01:52 105/66 09/30/25 01:52 105/66 09/30/25 01:52 105/66 09/30/25 01:51 138 H 32 H 87 L Oxymask 09/30/25 01:30 117/55 L 09/30/25 01:30 117/55 L 09/30/25 01:30 117/55 L 09/30/25 01:30 117/55 L 09/30/25 01:30 117/55 L 09/30/25 01:30 81 25 H 78 L Nasal Cannula 09/30/25 01:00 110/70 09/30/25 01:00 110/70 09/30/25 01:00 110/70 09/30/25 01:00 110/70 09/30/25 01:00 71 24 90 09/30/25 01:00 136 H 09/30/25 00:31 114/65 09/30/25 00:31 114/65 09/30/25 00:31 114/65 09/30/25 00:31 114/65 09/30/25 00:31 114/65 09/30/25 00:30 70 30 H 89 L Nasal Cannula 09/30/25 00:00 136 H 19 92 Nasal Cannula 09/30/25 00:00 94/77 L 09/30/25 00:00 94/77 L 09/30/25 00:00 94/77 L O2 Flow Rate FiO2 09/30/25 09:00 09/30/25 09:00 09/30/25 09:00 09/30/25 09:00 09/30/25 09:00 09/30/25 08:30 09/30/25 08:30 09/30/25 08:30 09/30/25 08:30 09/30/25 08:30 09/30/25 08:30 09/30/25 08:00 09/30/25 08:00 09/30/25 08:00 09/30/25 08:00 09/30/25 08:00 09/30/25 08:00 09/30/25 08:00 09/30/25 07:30 09/30/25 07:30 09/30/25 07:30 09/30/25 07:30 09/30/25 07:30 09/30/25 07:00 09/30/25 07:00 09/30/25 07:00 09/30/25 07:00 09/30/25 07:00 09/30/25 07:00 7 09/30/25 06:00 6 09/30/25 05:00 6 09/30/25 04:30 09/30/25 04:30 09/30/25 04:30 09/30/25 04:30 09/30/25 04:00 60 09/30/25 03:30 09/30/25 03:00 09/30/25 02:35 60 09/30/25 02:30 09/30/25 02:23 09/30/25 01:52 09/30/25 01:52 09/30/25 01:52 09/30/25 01:52 09/30/25 01:52 09/30/25 01:51 12 09/30/25 01:30 09/30/25 01:30 09/30/25 01:30 09/30/25 01:30 09/30/25 01:30 09/30/25 01:30 4 09/30/25 01:00 09/30/25 01:00 09/30/25 01:00 09/30/25 01:00 09/30/25 01:00 09/30/25 01:00 09/30/25 00:31 09/30/25 00:31 09/30/25 00:31 09/30/25 00:31 09/30/25 00:31 09/30/25 00:30 4 09/30/25 00:00 4 09/30/25 00:00 09/30/25 00:00 09/30/25 00:00 Laboratory Results Abnormal lab results 09/29/25 09/29/25 09/30/25 Range/Units 16:24 21:40 03:57 WBC 15.59 H (4.8-10.8) K/ul RBC 2.76 L (4.70-6.10) M/uL Hgb 10.0 L (14.0-18.0) g/dL Hct 30.8 L (42.0-52.0) % MCV 111.6 H (80.0-100.0) fL MCH 36.2 H (25.0-34.0) pg RDW Std Deviation 63.7 H (36.4-46.3) fL RDW Coeff of Ele 15.5 H (11.5-14.5) % Plt Count 64 L (130-400) K/uL MPV 13.0 H (9.4-12.4) fL Chloride 113 H (98-107) mmol/L Creatinine 1.93 H (0.6-1.4) mg/dl BUN/Creatinine Ratio 9.3 L (10-20) Glucose 119 H (70-99(Fasting)) mg/dl POC Glucose 138 H 128 H (70-99) mg/dl Calcium 7.8 L (8.6-10.3) mg/dl 09/30/25 Range/Units 07:32 WBC (4.8-10.8) K/ul RBC (4.70-6.10) M/uL Hgb (14.0-18.0) g/dL Hct (42.0-52.0) % MCV (80.0-100.0) fL MCH (25.0-34.0) pg RDW Std Deviation (36.4-46.3) fL RDW Coeff of Ele (11.5-14.5) % Plt Count (130-400) K/uL MPV (9.4-12.4) fL Chloride (98-107) mmol/L Creatinine (0.6-1.4) mg/dl BUN/Creatinine Ratio (10-20) Glucose (70-99(Fasting)) mg/dl POC Glucose 109 H (70-99) mg/dl Calcium (8.6-10.3) mg/dl Diagnostic Findings Abdomen/Pelvis CT 09/24/25 15:29 EXAM: CT Abdomen and Pelvis Without Intravenous Contrast INDICATION: Vomiting and diarrhea TECHNIQUE: Axial computed tomography images of the abdomen and pelvis without intravenous contrast. Sagittal and coronal reformatted images were created and reviewed. This CT exam was performed using one or more of the following dose reduction techniques: automated exposure control, adjustment of the mA and/or kV according to patient size, and/or use of iterative reconstruction technique. COMPARISON: 02/03/2023 FINDINGS: Limitations: None. Lung bases: There is consolidation in the dependent lower lobes left greater than right. Pleural space: There are small layering bilateral pleural effusions. Heart: Cardiomegaly. Mediastinum: No abnormality noted. ABDOMEN: Liver: Lack of intravenous contrast limits detection of some masses. No abnormality noted. Gallbladder and bile ducts: No calcified stones or surrounding fluid. No ductal dilation. Pancreas: No pancreatic mass, calcification, inflammation or ductal dilation noted. Spleen: No acute abnormality noted. Adrenals: No acute abnormality noted. Kidneys and ureters: Stable bilateral renal cysts most of which clearly appear benign. Others are hyperdense and unchanged. Stomach and bowel: The stomach is collapsed and cannot be optimally assessed. Multiple small and large bowel loops are mildly dilated with fluid and air. Left colonic diverticula noted. Mild thickening of the lateral conal fascia identified which may reflect mild adjacent diverticulitis. No obstructing point. PELVIS: Appendix: Well seen and appears normal. Bladder: Appears normal for the degree of filling. No stones or inflammation. No large mass. Masses may not be detected in the absence of opacification. Reproductive: No abnormalities noted. ABDOMEN and PELVIS: Intraperitoneal space: No free air. No significant fluid collection. Bones/joints: No acute changes. Posterior L4-S1 fusion hardware well-seated and intact. Diffuse degenerative changes. Soft tissues: No acute abnormality noted. Vasculature: Stable atherosclerosis of the aorta with mild aneurysm of the infrarenal segment to 3.3 cm. No hemorrhage. Lymph nodes: No pathologically enlarged lymph nodes. IMPRESSION: 1. Ileus with findings suggestive of mild descending colonic acute diverticulitis. 2. Small layering pleural effusions and compressive bilateral lower lobe consolidation. 3. Stable 3.3 cm infrarenal abdominal aortic aneurysm without hemorrhage. ACR White Paper guidelines (Constance, et al. JACR 2013; 10(46):787-53) suggest abdomen/pelvis CT or MR imaging follow-up in 3 years. ACT 112: N/A Electronically signed by Michelle Fields 09-24-2025 5:21 PM Chest X-Ray 09/30/25 02:07 EXAM: XR chest 1V portable CLINICAL HISTORY: eval in setting of worsening hypoxia TECHNIQUE: An X-ray image of the chest is obtained in AP projection. 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 FINDINGS: Central venous line seen is moderate side. Ill-defined ground-glass opacities noted involving left lower zone - likely congestive changes. Blunting of left costophrenic angle - suggestive of left sided pleural effusion. Minimal blunting of right costophrenic angle - possibility of pleural effusion/thickening. Apparent cardiomegaly. No acute osseous abnormality. IMPRESSION: Central venous line seen is moderate side. Ill-defined ground-glass opacities noted involving left lower zone - likely congestive changes.-reduced Blunting of left costophrenic angle - suggestive of left sided pleural effusion. reduced Minimal blunting of right costophrenic angle - possibility of pleural effusion/thickening. reduced Apparent cardiomegaly.-stable. Electronically signed by Sergo Ozuna 09-30-2025 03:34 AM Medications Administered Current Inpatient Medications Acetaminophen (Acetaminophen 325 Mg Tab) 650 mg PO Q4H PRN PRN Reason: Pain or Fever Stop: 10/24/25 21:15 Acetylcysteine (Acetylcysteine 10% Inhal Soln 4 Ml Dispensed By Resp.) 2 ml INH QIDR CHANELLE Stop: 10/27/25 10:59 Last Admin: 09/30/25 10:18 Dose: 2 ml Albuterol (Albut/Ipratrop 3mg/0.5mg Neb 3 Ml Vial) 3 ml NEB Q6R PRN; Protocol PRN Reason: SOB/wheezing Stop: 10/24/25 19:24 Albuterol (Albut/Ipratrop 3mg/0.5mg Neb 3 Ml Vial) 3 ml NEB QIDR CHANELLE; Protocol Stop: 10/27/25 10:59 Last Admin: 09/30/25 10:18 Dose: 3 ml Amiodarone HCl (Amiodarone 200 Mg Tab) 200 mg PO TID [facility] Stop: 10/30/25 13:59 Aspirin (Aspirin 81 Mg Ectab) 81 mg PO QAM [facility] Stop: 10/25/25 08:59 Atorvastatin Calcium (Atorvastatin 40 Mg Tab) 40 mg PO DAILY [facility] Stop: 10/31/25 08:59 Calcium/Vitamin D (Calcium 600mg + Vit D 400 Iu Tab) 1 tab PO BID [facility] Stop: 10/28/25 08:59 Last Admin: 09/30/25 08:32 Dose: 1 tab Fluticasone Furoate (Fluticasone Furoate 200mcg 14 Puffs/Inhaler) 1 puffs INH DAILY [facility] Stop: 10/24/25 21:44 Last Admin: 09/30/25 08:31 Dose: 1 puffs Folic Acid (Folic Acid 1 Mg Tab) 1 mg PO QAM [facility] Stop: 10/25/25 08:59 Last Admin: 09/30/25 08:32 Dose: 1 mg Piperacillin Sod/Tazobactam Sod (Zosyn) 4.5 gm in 100 mls @ 25 mls/hr IV Q8H [facility]; Protocol Stop: 10/01/25 12:59 Last Infusion: 09/30/25 07:41 Dose: Infused Potassium Phosphate 21 mmol/ (Sodium Chloride) 507 mls @ 88 mls/hr IV ONE ONE Stop: 09/30/25 13:45 Last Admin: 09/30/25 08:29 Dose: 88 mls/hr Lactobacillus Acidophilus (Advanced Probiotic 625 Mg Capsule) [facility] Stop: 10/25/25 08:59 Last Admin: 09/30/25 08:31 Dose: 1,250 mg Magnesium Hydroxide (Magnesium Hydroxide Susp 30 Ml Udc) 30 ml PO Q12H PRN PRN Reason: Constipation Stop: 10/24/25 21:15 Metoprolol Succinate (Metoprolol Succ 25mg Ext Rel Tab) 25 mg PO BID [facility] Stop: 10/30/25 09:44 Midodrine (Midodrine Hcl 10 Mg Tab) 10 mg PO TID@0800,1200,1700 [facility] Stop: 10/29/25 07:59 Last Admin: 09/30/25 08:29 Dose: 10 mg Ondansetron HCl (Ondansetron Inj 2 Mg/Ml 2 Ml Vial) 4 mg IV Q6H PRN PRN Reason: Nausea Stop: 10/24/25 21:15 Oxycodone HCl (Oxycodone Hcl Ir 5 Mg Tab (Immediate Release)) 5 mg PO Q4H PRN PRN Reason: pain Stop: 10/08/25 18:30 Pantoprazole Sodium (Pantoprazole 40 Mg Tab) 40 mg PO BID [facility] Stop: 10/24/25 20:59 Last Admin: 09/30/25 08:32 Dose: 40 mg Polyethylene Glycol (Polyethylene (Miralax) 17 Gm Pack) 17 gm PO DAILY PRN PRN Reason: Constipation Stop: 10/24/25 21:15 Umeclidinium/Vilanterol (Umeclidinium/Vilanterol 62.5/25mcg 7 Puffs/Inhaler) 1 puffs INH DAILY [facility] Stop: 10/24/25 21:44 Last Admin: 09/29/25 07:44 Dose: 1 puffs Vitamin B Complex (Vitamin B Complex Tab) 1 tab PO QAM [facility] Stop: 10/25/25 08:59 Last Admin: 09/30/25 08:33 Dose: 1 tab PG Care Time/CCT Total # of Minutes Spent Total Time Spent with Patient: Total time spent is greater than 50% in coordination of care (as documented) at patient's floor/unit and/or counseling patient: Advanced Care Planning 21355 Advanced Care Planning 30 [place] [address] IN/OBS CONSULT LVL 4,60M Patient Type New History Expanded Problem Focused Exam Expanded Problem Focused Medical Decision Making Moderate Complexity Diagnoses Shortness of breath R06.02 Palliative care by specialist Z51.5 Counseling regarding goals of care Z71.89 Additional Codes Advanced Care Planning - 57828 Advanced Care Planning 30 Min: 37611 Advanced Care Planning 30 Min ([id number])
[2025-09-30] MEDS: METOPROLOL SUCC 25MG EXT REL TAB PO SCH (10:31)
--- NOTE | 2025-09-30 10:49 | Electrocardiogram Report ---
Test Reason : Blood Pressure : */* mmHG Vent. 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 rate has increased by 85 bpm SVT now present Confirmed by Kourtney Looney (Jessica) on 09/30/2025 10:48:57 AM Referred By: REFERRED SELF Confirmed By: Kourtney Looney
--- NOTE | 2025-09-30 11:34 | Electrocardiogram Report ---
Test Reason : Blood Pressure : */* mmHG Vent. Rate : 143 BPM Atrial Rate : * BPM P-R Int : * ms QRS Dur : 92 ms QT Int : 308 ms P-R-T Axes : * 6 158 degrees QTcB Int : 475 ms Supraventricular tachycardia Inferior infarct (cited on or before 28-Sep-2025) Abnormal ECG When compared with ECG of 28-Sep-2025 17:18, (unconfirmed) Nonspecific T wave abnormality has replaced inverted T waves in Lateral leads Confirmed by Kourtney Looney (Jessica) on 09/30/2025 11:34:23 AM Referred By: REFERRED SELF Confirmed By: Kourtney Looney
--- NOTE | 2025-09-30 13:37 | Hospitalist Progress Note ---
Date of Service September 30, 2025 Assessment & Plan (1) Acute hypoxic respiratory failure: (2) Pulmonary edema: (3) Pleural effusion: (4) Acute on chronic heart failure with preserved ejection fraction: (5) Ileus: (6) Diverticulitis: (7) Acute kidney injury superimposed on stage 3a chronic kidney disease: (8) Elevated troponin: Plan Mr. 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 Patient initially in ICU given pressor requirement, however, now on midodrine and with decreasing o2 requirement. Downgraded to PCU 09/28, with prompt return back to ICU after going into RVR with pressures in 60s MAP < 60 Off IV vasopressor support, BP stable on midodrine Transfer out of ICU today 09/30 #Shock #Multifactorial: Septic from Pneumonia, Diverticulitis; Hypovolemic from Diarrhea; Cardiogenic from systolic CHF blood culture: negative x 48 hrs sputum culture: NGTD started back on phenlyephrine, Midodrine added and increased to 10mg TID Echocardiogram was performed. Moderately reduced systolic function with an EF of 40 to 45% and global hypokinesis. Grade 2 diastolic dysfunction. Normal RV size and function. Mild aortic stenosis, mild to moderate pulmonic regurg, mild MR and TR. Transferred back to ICU 09/28 iso a fib rvr and hypotension Completed zosyn 09/29 #Acute hypoxic respiratory failure, multifactorial #Interstitial pulmonary edema, small to moderate L pleural effusion seen on CXR #Small layering pleural effusions and compressive bilateral lower lobe consolidation seen on CTAP #Acute on chronic HFpEF Resp BioFire negative. Requiring 8L OxyMask in ED, maintaining sats in the upper 90s. BNP 1006 however pt is hypotensive and appears dry on exam, s/p 1.5L IVF in the ED. Continue IVF, update TTE as per below. Prior TTE last month: EF 55%, moderately dilated LA, moderate MR, mild TR. Wean O2 as tolerated. Does have nonproductive cough/congestion and CXR reads patchy bibasilar opacities, possible PNA. Pulm toileting as able. continue nebs/inhalers Down to 6L NC today. encouraged flutter valve and IS use #Atrial Fibrillation with RVR likely secondary to above on Amiodarone po BID Toprol BID started 09/30 by cardio anticoagulation held due to bleeding risks #Ileus with findings suggestive of mild descending colonic acute diverticulitis on CTAP Maintain NPO status, continue IVF and PRN electrolyte repletion. S/p IV Zithromax, Rocephin and Flagyl in ED. Appreciate gen surgery consult-no surgical intervention Tolerating regular diet #ANDRES superimposed on CKD stage IIIa Cr previously 1.8 as of 08/19/25, appears baseline prior to that was around 1- 1.2 as per records. Cr 3.25 on presentation Suspect related to volume depletion ISO above, IVF onboard. slowly improving despite hypotensive episode Cr down to 1.9 09/30 #Leukocytosis no clear new source of infection, notably volume overloaded probably reactive, closely monitor procal 0.34 Cultures NGTD Monitor off abx #Pancytopenia *resolved #Chronic anemia #Metastatic poorly-differentiated carcinoma with unknown primary, most likely origin thought pulmonary F/w [facility] oncology, Dr. Everett. Diagnosed in 2023. PET scan done on 04/23/24 which revealed metabolically active pleural-based lung nodules suspicious for metastases and metabolically active prevascular and left suprahilar lymphadenopathy. Completed 6 cycles of combination of pemetrexed plus carboplatin Keytruda with overall good tolerance. Follow-up PET scan done after 4 cycles of chemotherapy revealed good response. Was on maintenance treatment including combination of pemetrexed and Keytruda. Follow-up PET scan done on 08/07/25 revealed disease progression. Now on combination Docetaxel and Ramucirumab; last received chemotherapy on 09/17/25. Continue PRN oxy IR for cancer-related pain. Neutropenic precautions, fall precautions in light of thrombocytopenia. Neutropenia improved, stable hgb Platelets improved to 64k today , continue to hold anticoagulation Palliative care consulted for GOC, appreciate input #DMII with peripheral vascular disease: Hgb A1c 5.7% 1mo ago, SSI protocol while admitted with BSG checks ACHS. #ASCVD: Continue ASA, statin therapy. #COPD: Continue home inhalers #Infrarenal abdominal aortic aneurysm Appears stable on CTAP today, measuring 3.3cm. Recommend CTAP or MR imaging follow-up in 3yr as per ACR White Paper guidelines. #HTN: Hold lisinopril for now given hypotension and ANDRES, resume as able/tolerated. #GERD: Continue PPI BID. #BPH: Continue Flomax. #Hypocalcemia: Check vit D level, continue to monitor. DVT Prophylaxis: SCDs/TEDs only for now in light of thrombocytopenia Code Status: FULL CODE I spent a total of 61 minutes coordinating, documenting, and providing care for this patient excluding time spent in the performance of separately billed services. This included personally reviewing all current laboratories and imaging studies, medical reconciliation, outpatient chart review and discussion with specialists Admission and Anticipated Discharge Date Admission Date: September 24, 2025 Subjective Seen in ICU 104. Feeling well today. answered all questions. Patient denies F/C, CP, palpitations, SOB, dyspnea, abd pain, N/V/D Physical Exam Physical Exam: Vitals and labs reviewed General: chronically ill appearing NAD HEENT: EOMI, PERRLA R IJ Neck: Supple Cardiac: RRR Lungs: Decreased bs bilaterally. faint bibasilar rales. no rhonchi or wheez. no distress Abd: S NT ND BS positive : connelly MSK: Full ROM. No obvious deformities Ext: No Edema cyanosis Skin: Warm, Dry Neuro: AOx3 No focal deficits. Psych: Normal Mood Results & Data Results & Data Vital Signs (Past 12 Hours) Vital Signs Temp Pulse Pulse Resp BP Pulse Ox O2 Del Method 09/30/25 12:00 37 C 09/30/25 12: 12774 09/30/25 12:00 12774 09/30/25 12: 127/74 09/30/25 12:00 127/74 09/30/25 12:00 85 19 88 L Nasal Cannula 09/30/25 11:30 85 27 H 96 09/30/25 11:30 130/63 09/30/25 11:30 130/63 09/30/25 11:30 130/63 09/30/25 11:30 130/63 09/30/25 11:00 112/59 L 09/30/25 11:00 112/59 L 09/30/25 11:00 112/59 L 09/30/25 11:00 112/59 L 09/30/25 11:00 112/59 L 09/30/25 11:00 85 26 H 94 09/30/25 10:30 116/60 09/30/25 10:30 116/60 09/30/25 10:30 116/60 09/30/25 10:30 116/60 09/30/25 10:30 116/60 09/30/25 10:30 116/60 09/30/25 10:30 116/60 09/30/25 10:30 82 22 96 09/30/25 10:19 108 H 20 92 Nasal Cannula 09/30/25 10:00 105/55 L 09/30/25 10:00 105/55 L 09/30/25 10:00 105/55 L 09/30/25 10:00 105/55 L 09/30/25 10:00 105/55 L 09/30/25 10:00 81 24 94 09/30/25 09:43 103/54 L 09/30/25 09:43 103/54 L 09/30/25 09:43 103/54 L 09/30/25 09:43 103/54 L 09/30/25 09:43 103/54 L 09/30/25 09:42 83 27 H 82 L 09/30/25 09:41 116/59 L 09/30/25 09:41 116/59 L 09/30/25 09:39 85 19 90 09/30/25 09:30 80 19 95 09/30/25 09:30 103/60 09/30/25 09:30 103/60 09/30/25 09:30 103/60 09/30/25 09:30 103/60 09/30/25 09:30 103/60 09/30/25 09:00 82 19 90 09/30/25 09:00 117/62 09/30/25 09:00 117/62 09/30/25 09:00 117/62 09/30/25 09:00 117/62 09/30/25 08:30 131 H 27 H 88 L 09/30/25 08:30 101/67 09/30/25 08:30 101/67 09/30/25 08:30 101/09/30/25 08:30 101/09/30/25 08:30 101/09/30/25 08:00 Nasal Cannula 09/30/25 08:00 113/62 09/30/25 08:00 113/09/30/25 08:00 113/09/30/25 08:00 113/09/30/25 08:00 73 21 91 09/30/25 08:00 71 09/30/25 08:00 36.6 C 09/30/25 07:30 81 25 H 84 L 09/30/25 07:30 129/59 L 09/30/25 07:30 129/59 L 09/30/25 07:30 129/59 L 09/30/25 07:30 129/59 L 09/30/25 07:00 72 24 95 09/30/25 07:00 122/56 L 09/30/25 07:00 122/56 L 09/30/25 07:00 122/56 L 09/30/25 07:00 122/56 L 09/30/25 07:00 73 24 93 09/30/25 06:00 36.5 C 75 128/74 91 Oxymask 09/30/25 05:00 36.5 C 69 20 128/63 97 Oxymask 09/30/25 04:30 134/71 09/30/25 04:30 134/71 09/30/25 04:30 134/71 09/30/25 04:30 78 26 H 95 09/30/25 04:00 73 20 126/71 97 BiPAP 09/30/25 03:30 124/63 97 BiPAP 09/30/25 03:00 78 112/97 94 BiPAP 09/30/25 02:35 79 22 94 09/30/25 02:30 78 23 121/71 94 BiPAP 09/30/25 02:23 78 09/30/25 01:52 105/66 09/30/25 01:52 105/66 09/30/25 01:52 105/09/30/25 01:52 105/66 09/30/25 01:52 105/66 09/30/25 01:51 138 H 32 H 87 L Oxymask O2 Flow Rate FiO2 09/30/25 12:00 09/30/25 12:00 09/30/25 12:00 09/30/25 12:00 09/30/25 12:00 09/30/25 12:00 6 09/30/25 11:30 09/30/25 11:30 09/30/25 11:30 09/30/25 11:30 09/30/25 11:30 09/30/25 11:00 09/30/25 11:00 09/30/25 11:00 09/30/25 11:00 09/30/25 11:00 09/30/25 11:00 09/30/25 10:30 09/30/25 10:30 09/30/25 10:30 09/30/25 10:30 09/30/25 10:30 09/30/25 10:30 09/30/25 10:30 09/30/25 10:30 09/30/25 10:19 5 09/30/25 10:00 09/30/25 10:00 09/30/25 10:00 09/30/25 10:00 09/30/25 10:00 09/30/25 10:00 09/30/25 09:43 09/30/25 09:43 09/30/25 09:43 09/30/25 09:43 09/30/25 09:43 09/30/25 09:42 09/30/25 09:41 09/30/25 09:41 09/30/25 09:39 09/30/25 09:30 09/30/25 09:30 09/30/25 09:30 09/30/25 09:30 09/30/25 09:30 09/30/25 09:30 09/30/25 09:00 09/30/25 09:00 09/30/25 09:00 09/30/25 09:00 09/30/25 09:00 09/30/25 08:30 09/30/25 08:30 09/30/25 08:30 09/30/25 08:30 09/30/25 08:30 09/30/25 08:30 09/30/25 08:00 6 09/30/25 08:00 09/30/25 08:00 09/30/25 08:00 09/30/25 08:00 09/30/25 08:00 09/30/25 08:00 09/30/25 08:00 09/30/25 07:30 09/30/25 07:30 09/30/25 07:30 09/30/25 07:30 09/30/25 07:30 09/30/25 07:00 09/30/25 07:00 09/30/25 07:00 09/30/25 07:00 09/30/25 07:00 09/30/25 07:00 7 09/30/25 06:00 6 09/30/25 05:00 6 09/30/25 04:30 09/30/25 04:30 09/30/25 04:30 09/30/25 04:30 09/30/25 04:00 60 09/30/25 03:30 09/30/25 03:00 09/30/25 02:35 60 09/30/25 02:30 09/30/25 02:23 09/30/25 01:52 09/30/25 01:52 09/30/25 01:52 09/30/25 01:52 09/30/25 01:52 09/30/25 01:51 12 Laboratory Results Abnormal lab results 09/29/25 09/29/25 09/30/25 Range/Units 16:24 21:40 03:57 WBC 15.59 H (4.8-10.8) K/ul RBC 2.76 L (4.70-6.10) M/uL Hgb 10.0 L (14.0-18.0) g/dL Hct 30.8 L (42.0-52.0) % MCV 111.6 H (80.0-100.0) fL MCH 36.2 H (25.0-34.0) pg RDW Std Deviation 63.7 H (36.4-46.3) fL RDW Coeff of Ele 15.5 H (11.5-14.5) % Plt Count 64 L (130-400) K/uL MPV 13.0 H (9.4-12.4) fL Chloride 113 H (98-107) mmol/L Creatinine 1.93 H (0.6-1.4) mg/dl BUN/Creatinine Ratio 9.3 L (10-20) Glucose 119 H (70-99(Fasting)) mg/dl POC Glucose 138 H 128 H (70-99) mg/dl Calcium 7.8 L (8.6-10.3) mg/dl 09/30/25 Range/Units 07:32 WBC (4.8-10.8) K/ul RBC (4.70-6.10) M/uL Hgb (14.0-18.0) g/dL Hct (42.0-52.0) % MCV (80.0-100.0) fL MCH (25.0-34.0) pg RDW Std Deviation (36.4-46.3) fL RDW Coeff of Ele (11.5-14.5) % Plt Count (130-400) K/uL MPV (9.4-12.4) fL Chloride (98-107) mmol/L Creatinine (0.6-1.4) mg/dl BUN/Creatinine Ratio (10-20) Glucose (70-99(Fasting)) mg/dl POC Glucose 109 H (70-99) mg/dl Calcium (8.6-10.3) mg/dl
[2025-09-30] MEDS: AMIODARONE 200 MG TAB PO SCH (15:20)
[2025-09-30] MEDS: SODIUM CHLORIDE 0.9% 250 ML IV ONE (21:03)
[2025-09-30] MEDS: METOPROLOL TARTRATE 1 MG/ML VIAL IV STA ×2 (22:10→23:04)
[2025-09-30] MEDS ORDERED: SODIUM CHLORIDE 0.65% NA SOLN 45 ML (OCEAN) PRN (23:41)
[2025-10-01] MEDS ORDERED: STAT IV Infusion **Titration per Protocol STA (01:35)
[2025-10-01] MEDS ORDERED: 0.2 MICRON FILTER SET 1 EACH IV STA (01:35)
[2025-10-01] MEDS ORDERED: AMIODARONE IV BOLUS & DRIP IV STA (01:35)
[2025-10-01] MEDS: LACTATED RINGER'S 500 ML IV ONE (01:47)
[2025-10-01] MEDS: AMIODARONE / D5W 150 MG/100 ML BAG IV STA (01:47)
[2025-10-01] MEDS: AMIODARONE / D5W 360 MG/200 ML BAG IV ONE (02:00)
--- NOTE | 2025-10-01 02:12 | Critical Care Consultation ---
Date of Consultation October 01, 2025 Assessment & Plan (1) Dysrhythmia: AFib RVR (2) Hypoxia: (3) Elevated troponin: (4) Acute kidney injury superimposed on stage 3a chronic kidney disease: (5) Diverticulitis: (6) Ileus: (7) Acute hypoxic respiratory failure: Plan HPI: This critically ill, 80 yr old, 81 kg, male was recently admitted to ICU with ? Pulmonary Cancer source, Colitis/Diveriticulitis descending colon with Ileus, Septic Shock, AFib RVR, Respiratory distress - pleural effusions with aggressive pulmonary toileting. The pt had been transferred out of ICU to Telemetry and after arrival became hypotensive again requiring transfer back to the ICU for AFib RVR mgt 140s with reported SBP 80's. The pt's recent EF 40-45%. Cordarone protocol will be initiated and 500 ml LR IV x1 over 1 hr. After BP improved will use low dose Lopressor 2.5 mg IV q 4 hrs prn HR > 100 and hold for SBP < 100. Pt is CAOx3 15 GCS. - Appreciate last critical care note in detail on today's multidisciplinary rounds. * Metastatic poorly-differentiated carcinoma with unknown primary, most likely origin thought pulmonary F/w [facility] oncology, Dr. Everett. Diagnosed in 2023. PET scan done on 04/23/24 which revealed metabolically active pleural-based lung nodules suspicious for metastases and metabolically active prevascular and left suprahilar lymphadenopathy. Completed 6 cycles of combination of pemetrexed plus carboplatin Keytruda with overall good tolerance. Follow-up PET scan done after 4 cycles of chemotherapy revealed good response. Was on maintenance treatment including combination of pemetrexed and Keytruda. Follow-up PET scan done on 08/07/25 revealed disease progression. Now on combination Docetaxel and Ramucirumab; last received chemotherapy on 09/17/25. Continue PRN oxy IR for cancer-related pain. Neutropenic precautions, fall precautions in light of thrombocytopenia. ASSESSMENT & PLAN: NEURO: CAOx3 15 GCS. CARDIO: AFib RVR 140s BP 102/75 (85). Cordarone protocol bolus and infusion, Cardiology already consulted. 500ml LR over 1 hr IV. + Rt Mediport access being utilized. Check BMP, Mg and Phos. Supplement as needed. If ineffective may use low dose Dig x1 0.25mg IV (if fails other tx and QTc acceptable with close monitoring) and level in am d/t refractory control issues with recent admit and transfer out of ICU and back immediately d/t reported hypotension. After improvement in BP may use low dose Lopressor 2.5 mg IV q 4 hrs prn HR > 100 hold for SBP < 100. PULM: Respiratory distress hypoxemia, NC 6lpm SPO2 93% RR 25. Pt speaking without distress. Minimal respiratory distress. RENAL: Connelly 16F UO clear yellow, monitor I/O's. CKD 1.8 baseline creat up 3's on admit last 1.9 recheck pending. s/i IVF and diuresis. GI: Cleared by Nursing for Meds. Abdomen SNT round BSx4. Descending Colonic Diverticulitis s/p Zosyn. ENDO: Monitor BS needs, trend and correct electrolytes as needed. HEME: No bleeding, anemia of chronic disease. INTEG: WPD, mild pallor, cap refill 2 sec. ID: N/A. Present antibiotics off. Check procalcitonin and review am CBC/Diff. PROPHYLAXIS: SCDs, Holding Heparin SQ q8 hrs, and PPI BID. DISP: Admit ICU 4. Hospitalists with Long Term Acute Care Registered Nurse consult. DNR/DNI after speaking to Palliative today and desires to return home after pulmonary status has been improved and stabilized with Hospice, if he decompensates during this admission then he would transition to INTEGRATION AIDE. Critical Care Time: 60 min minus appropriate exclusions. Supervising Physician Co-Signing Physician Notes I have personally evaluated and examined this patient. I agree with assessment and plan of Arthur GRAY. Patient's vital signs improved without intervention. Discussed with hospitalist team. History of Present Illness Reason for Consultation: AFib RVR and Hypotension. Attending Physician: Blake Figueroa DO Allergies Allergy/AdvReac Type Severity Reaction Status Date / Time bee venom protein (honey bee) Allergy Severe ANAPHYLAXIS Verified 06/21/25 20:53 cephalexin [From Keflex] Allergy Unknown CAN'T Verified 06/21/25 20:53 MD CHIDI ADDED TO LIST Home Medications Medication Instructions Recorded Confirmed Type atorvastatin 80 mg tablet 80 mg PO DAILY 04/22/20 09/24/25 History cholecalciferol (vitamin D3) 25 1,000 unit PO QAM 04/22/20 09/24/25 History mcg (1,000 unit) capsule (Vitamin D3) epinephrine 0.3 mg/0.3 mL 0.3 mg IM DIRECTED PRN Allergic 04/22/20 09/24/25 History injection, auto-injector Reaction nitroglycerin 0.4 mg sublingual 0.4 mg sublingual DIRECTED PRN 04/22/20 09/24/25 History tablet (Nitrostat) Chest Pain tamsulosin 0.4 mg capsule 0.4 mg PO QAM 04/22/20 09/24/25 History lisinopril 2.5 mg tablet 2.5 mg PO QAM 02/03/23 09/24/25 History albuterol sulfate 90 mcg/actuation 2 inh inhalation Q4H PRN shortness 05/18/25 09/24/25 History aerosol inhaler of breath or wheezing budesonide 160 mcg-glycopyr 9 2 inh inhalation BID 05/18/25 09/24/25 History mcg-formot 4.8 mcg/actuation HFA inhaler (Breztri Aerosphere) folic acid 1 mg tablet 1 mg PO QAM 05/18/25 09/24/25 History prochlorperazine maleate 10 mg 10 mg PO Q6H PRN Nausea And 05/18/25 09/24/25 History tablet Vomiting trazodone 50 mg tablet 50 mg PO HS 05/18/25 09/24/25 History pantoprazole 40 mg tablet,delayed 40 mg PO BID #60 tabs 05/21/25 09/24/25 Rx release B-complex with vitamin C 1 cap PO QAM 06/21/25 09/24/25 History aspirin 81 mg tablet,delayed 81 mg PO QAM 06/21/25 09/24/25 History release dexamethasone 4 mg tablet 8 mg PO DIRECTED PRN DAYS 2,3,4 06/21/25 09/24/25 History OF CHEMO lidocaine-prilocaine 2.5 %-2.5 % 1 applic topical DIRECTED PRN 06/21/25 09/24/25 History topical cream ACCESSING MEDIPORT loperamide 1 mg/7.5 mL oral liquid 0.5 mg PO DAILY PRN Diarrhea 06/21/25 09/24/25 History (Imodium A-D) loratadine 10 mg tablet (Claritin) 10 mg PO DAILY PRN START DAY OF 06/21/25 09/24/25 History CHEMO X 5 DAYS. metoprolol succinate 50 mg 50 mg PO BID 06/21/25 09/24/25 History tablet,extended release 24 hr ondansetron HCl 8 mg tablet 8 mg PO Q8H PRN NAUSEA/VOMITING 06/21/25 09/24/25 History oxycodone 5 mg tablet 5 mg PO Q4H PRN pain #10 tabs 06/23/25 09/24/25 Rx L.acidop,casei,lactis,rham-B.lact,zac 1 cap PO QAM 08/15/25 09/24/25 History 625 mg (10 billion cell) capsule (Advanced Probiotic) Patient History Medical History Demand ischemia PAD (peripheral artery disease) Mild bilateral ICA disease (per 2019 carotid duplex) Arterial doppler of LE showed mild PAD on right side (April 2021) History of Mohs micrographic surgery for skin cancer History of gout History of melanoma Hyperlipidemia BPH (benign prostatic hyperplasia) Myocardial Infarction 1996 > anterior wall CA Kidney stone 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 Surgical History History of urologic surgery History of cancer surgery bladder History of cystoscopy History of tooth extraction History of lithotripsy recent--08/21/21 @ [place] History of cardiac cath 2017 > 1 STENT > [facility] Hx of colonoscopy History of lumbar spinal fusion 2010 1968 Family History Father Diabetes Grandmother (Paternal) Diabetes Other Cancer Coronary heart disease Hypertension No family history of adverse response to anesthesia Social History Smoking Status: Current every day smoker Tobacco Type: Cigarettes Cigarettes Per Day: 3; Second Hand Exposure: Yes; Do You Dip or Chew Tobacco: No; Hx Alcohol Use: No Hx Substance Use: No Preferred Language: Luxembourger Communication Ability: Effective Stoner Out Required: No Beliefs That Will Affect Care: None marital status: Current Living Situation: Spouse Current Living Situation Comment: with Feels Safe at Home: Yes Assistive Devices: Walker Review of Systems Review of Systems: Negative except as in HPI. Physical Exam Constitutional: well developed and + ill appearing Eyes: PERRL, conjunctivae normal, anicteric sclerae ENMT: wnl Neck: neg Respiratory: + cough, able to speak in complete sente nces and + tachypneic O2 nc spo2 6 lpm Cardiovascular: Rate/Rhythm: + tachycardic; + abnormal rhythm Afib rvr 140s bp 102/75 (85) Chest (Breasts): Additional Comments: medport rt chest accessed Gastrointestinal (Abdomen): flat no c/o Musculoskeletal: maex3 x4 - 4/5 strength Skin: no rashes, warm and dry Neurologic: PERRL, EOMI, accommodation nl, no face palsy, no dysarthria Genitourinary: connelly clear yellow urine Results & Data Results & Data Vital Signs (Past 12 Hours) Vital Signs Temp Pulse Pulse Resp BP BP Pulse Ox 10/01/25 00:45 142 H 87/57 L 09/30/25 23:45 134 H 09/30/25 23:39 130 H 95/62 L 09/30/25 23:36 09/30/25 23:29 36.8 C 130 H 22 95/62 L 95 09/30/25 23:16 106/74 09/30/25 23:15 81 17 98 09/30/25 23:15 133 H 29 H 87 L 09/30/25 23:15 106/74 09/30/25 23:15 106/74 09/30/25 23:15 106/74 09/30/25 23:15 106/74 09/30/25 23:15 106/74 09/30/25 23:04 135 H 103/60 09/30/25 23:00 135 H 24 94 09/30/25 23:00 103/60 09/30/25 23:00 103/60 09/30/25 23:00 103/60 09/30/25 23:00 103/60 09/30/25 23:00 103/60 09/30/25 22:48 135 H 21 91 09/30/25 22:45 135 H 94 09/30/25 22:45 90/68 L 09/30/25 22:45 90/68 L 09/30/25 22:45 90/68 L 09/30/25 22:45 90/68 L 09/30/25 22:45 90/68 L 09/30/25 22:40 94/65 L 09/30/25 22:40 94/65 L 09/30/25 22:40 94/65 L 09/30/25 22:40 94/65 L 09/30/25 22:40 94/65 L 09/30/25 22:39 134 H 12 09/30/25 22:35 93/60 L 09/30/25 22:35 93/60 L 09/30/25 22:35 93/60 L 09/30/25 22:35 93/60 L 09/30/25 22:35 93/60 L 09/30/25 22:33 133 H 19 96 09/30/25 22:30 134 H 31 H 95 09/30/25 22:30 93/60 L 09/30/25 22:30 93/60 L 09/30/25 22:30 93/60 L 09/30/25 22:30 93/60 L 09/30/25 22:30 93/60 L 09/30/25 22:25 87/63 L 09/30/25 22:25 87/63 L 09/30/25 22:25 87/63 L 09/30/25 22:25 87/63 L 09/30/25 22:25 87/63 L 09/30/25 22:24 135 H 22 96 09/30/25 22:20 93/63 L 09/30/25 22:20 93/63 L 09/30/25 22:20 134 H 93/63 L 09/30/25 22:10 141 H 92/65 L 09/30/25 21:15 36.4 C L 09/30/25 19:59 72 18 94 09/30/25 16:00 09/30/25 16:00 36.6 C 09/30/25 15:32 75 20 95 09/30/25 15:30 77 21 95 09/30/25 15:30 124/62 09/30/25 15:30 124/62 09/30/25 15:30 124/62 09/30/25 15:30 124/62 09/30/25 15:30 124/62 09/30/25 15:00 126/64 09/30/25 15:00 126/64 09/30/25 15:00 126/64 09/30/25 15:00 126/64 09/30/25 15:00 75 23 86 L 09/30/25 14:30 114/56 L 09/30/25 14:30 114/56 L 09/30/25 14:30 114/56 L 09/30/25 14:30 114/56 L 09/30/25 14:30 114/56 L 09/30/25 14:30 77 26 H 88 L 09/30/25 14:00 126/64 09/30/25 14:00 126/64 09/30/25 14:00 126/64 09/30/25 14:00 126/64 09/30/25 14:00 77 26 H 92 Pulse Ox O2 Del Method O2 Del Method O2 Flow Rate O2 Flow Rate FiO2 10/01/25 00:45 09/30/25 23:45 09/30/25 23:39 09/30/25 23:36 Nasal Cannula 6 09/30/25 23:29 Nasal Cannula 6 09/30/25 23:16 09/30/25 23:15 45 09/30/25 23:15 09/30/25 23:15 09/30/25 23:15 09/30/25 23:15 09/30/25 23:15 09/30/25 23:15 09/30/25 23:04 09/30/25 23:00 09/30/25 23:00 09/30/25 23:00 09/30/25 23:00 09/30/25 23:00 09/30/25 23:00 09/30/25 22:48 09/30/25 22:45 09/30/25 22:45 09/30/25 22:45 09/30/25 22:45 09/30/25 22:45 09/30/25 22:45 09/30/25 22:40 09/30/25 22:40 09/30/25 22:40 09/30/25 22:40 09/30/25 22:40 09/30/25 22:39 09/30/25 22:35 09/30/25 22:35 09/30/25 22:35 09/30/25 22:35 09/30/25 22:35 09/30/25 22:33 09/30/25 22:30 09/30/25 22:30 09/30/25 22:30 09/30/25 22:30 09/30/25 22:30 09/30/25 22:30 09/30/25 22:25 09/30/25 22:25 09/30/25 22:25 09/30/25 22:25 09/30/25 22:25 09/30/25 22:24 09/30/25 22:20 09/30/25 22:20 09/30/25 22:20 09/30/25 22:10 09/30/25 21:15 09/30/25 19:59 Oxymask 5 09/30/25 16:00 91 Nasal Cannula 5 09/30/25 16:00 09/30/25 15:32 Nasal Cannula 5 09/30/25 15:30 Nasal Cannula 5 09/30/25 15:30 09/30/25 15:30 09/30/25 15:30 09/30/25 15:30 09/30/25 15:30 09/30/25 15:00 09/30/25 15:00 09/30/25 15:00 09/30/25 15:00 09/30/25 15:00 09/30/25 14:30 09/30/25 14:30 09/30/25 14:30 09/30/25 14:30 09/30/25 14:30 09/30/25 14:30 09/30/25 14:00 09/30/25 14:00 09/30/25 14:00 09/30/25 14:00 09/30/25 14:00 Coding Level of Care Code 93708 CRITICAL CARE 1ST 30-74M Diagnoses Dysrhythmia I49.9 Arrhythmia type: atrial fibrillation Hypoxia R09.02 Elevated troponin R79.89 Acute kidney injury superimposed on stage 3a chronic kidney disease N17.9; N18.31 Diverticulitis K57.92 Ileus K56.7 Acute hypoxic respiratory failure J96.01 Time Spent (min) 60 (1) Dysrhythmia Arrhythmia type: atrial fibrillation
[2025-10-01 02:29] LABS: Hematocrit (blood only) 28.6 % (42.0-52.0); Hemoglobin 9.4 g/dL (14.0-18.0); Mean Corpuscular Hemoglobin 36.0 pg (25.0-34.0); Mean Corpuscular Volume 109.6 fL (80.0-100.0); Platelet Count 61 K/uL (130-400); RDW Standard Deviation 62.1 fL (36.4-46.3); Red Blood Count 2.61 M/uL (4.70-6.10); White Blood Count 12.90 K/ul (4.8-10.8)
[2025-10-01 02:49] LABS: Anion Gap 8.0 (3-11); Blood Urea Nitrogen 18.0 mg/dl (6-23); Calcium 7.6 mg/dl (8.6-10.3); Carbon Dioxide 24.0 mmol/L (21-32); Chloride 111.0 mmol/L (98-107); Creatinine Clr Calc Pharmacy 31.6 ml/min; Glucose 130.0 mg/dl (70-99(Fasting)); Magnesium 1.7 mg/dl (1.7-2.4); Potassium 3.7 mmol/L (3.5-5.1); Sodium 143.0 mmol/L (136-145)
[2025-10-01] MEDS ORDERED: LEVALBUTEROL HCL 0.63 MG/3 ML NEB NEB SCH (03:00)
[2025-10-01] MEDS ORDERED: Nursing to Pharmacy Communication SCH (03:00)
[2025-10-01] MEDS: METOPROLOL TARTRATE 1 MG/ML VIAL IV PRN (03:04)
[2025-10-01] MEDS: MAGNESIUM SULFATE / D5W 1 GM/100 ML BAG IV SCH (03:27)
[2025-10-01] MEDS: POTASSIUM CHLORIDE CRTAB 20 MEQ TABCR PO STA (03:36)
[2025-10-01] MEDS ORDERED: HEPARIN SOD 5,000 UNIT/0.5 ML VIAL SQ SCH (06:00)
[2025-10-01] MEDS: AMIODARONE / D5W 360 MG/200 ML BAG IV SCH (07:30)
[2025-10-01] MEDS: IPRATROPIUM BROMIDE NEB SOLN 0.02% 0.5MG/2.5ML VIAL NEB SCH (08:17)
[2025-10-01] MEDS: LEVALBUTEROL HCL 0.63 MG/3 ML NEB NEB SCH (08:17)
[2025-10-01] MEDS: ATORVASTATIN 40 MG TAB PO SCH (08:46)
[2025-10-01 12:40] LABS: Magnesium 2.6 mg/dl (1.7-2.4); Potassium 3.8 mmol/L (3.5-5.1)
--- NOTE | 2025-10-01 13:08 | Palliative Care Progress Note ---
Date of Service October 01, 2025 Assessment & Plan (1) Shortness of breath: (2) Palliative care by specialist: Plan: Palliative care will continue to follow for ongoing EOL pt care and family support. (3) Counseling regarding goals of care: Plan: TODAY: Pt AAAOx4, no visitors. He shared that his will not be visiting today due to weather. Reinforced discussion from yesterday, pt states that his is in charge of working with hospice and CM to make arrangements for discharge home with hospice. Pt agreeable to continuing to optimize his lung function for "couple more days" prior to discharge home with hospice. 09/30/25: Met with patient and his Dalila and daughter to discuss goals of care from 15:00 - 15:35. Pt states that he is understanding that his cancer treatment has made his heart failure worse and that he was warned of this by Dr Everett. He shared that he understands that his cancer cannot be cured but would like to know from Dr Everett if there is anything that can be offered that will help to give him more time. We discussed his HPI and current critical illness, he verbalized understanding that his cancer is advancing and shared that he would like to discuss his prognosis with Dr Everett. I reached out to Dr. Everett via [employer] and shared with Ed and Dalila that Dr Everett responded that chemotherapy might do more harm than good and given his declining health, hospice would be appropriate. Dalila sharaed that she agrees with this and they questioned continuing on current treatments to try to optimize his health with plan to discharge to home with hospice. Ed shared that he most values being home and would prefer to be at home at the time of his . Dalila supports his wishes and requests referral to hospice be made, not expressing a preference for hospice agency. Discussed hospice benefit: an interdisciplinary program offered by nurses, nurses aides, social workers, chaplains and a medical assistant secretary for patients with a terminal condition and a life expectancy of less than 6 months. This is covered by Medicare at 100%/no out of pocket expense to patient and all meds/supplies needed by patient for the reason they are on hospice are paid for/covered by hospice. The goal is assure quality of life of the patient in their home setting (home, custodial, inpatient hospice setting) by providing symptoms management, psychosocial and spiritual support. However, they cannot offer 24 hours care and if the family is unable to provide that care, they will have to consider personal care with out of pocket cost vs. custodial placement. We discussed the goals of hospice as a patient service and the goals of care; we discussed EOL trajectories and transitions ashish the emotional impact of realizing mortality as a concrete reality from prior abstract considerations. They were reassured that no matter where they are along this trajectory, they are not alone - their medical team will remain by their side through their journey. Hospice care will also make short-term inpatient care available when pain or symptoms become too difficult to manage at home or when caregivers need respite time. Hospice care can be provided wherever the patient lives, includingpersonal care homes or nursing homes. Hospice care is provided by a team that focuses on the patients needs. The team usually includes clergy, home health aides, hospice physicians, nurses, social workers, trained volunteers, and other specialized therapists if needed. A patients personal physician may also be included. Discussed code status and helped them understand that CPR is only done after a person has and involves uncomfortable and invasive procedures that, if successful. 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 Ed shared that he has an advanced directive that documents his wishes for DNR/DNI as well as designating his as primaary HCPOA and son Ronni Farr as secondary HCPOA. In short, Ed requests DNR/DNI, but continue to optimize his health throughout admission with plan for discharge to home with hospice when that can be arranged. If he decompensates during admission plan is to transition to [facility]. Plan DNR/DNI, continue to optimize health with plan for discharge to home with hospice. Admission and Anticipated Discharge Date Admission Date: September 24, 2025 Subjective Assessed at bedside today, no visitors present. VSS, NAEON. Pt denies discomfort today, appears more drowsy but in NAD on 6L NC. Review of Systems Review of Systems: All systems reviewed & are unremarkable except as noted in Subjective Physical Exam Constitutional: well developed, + ill appearing, + thin, cooperative and comfortable Eyes: PERRL, conjunctivae normal, anicteric sclerae Neck: trachea midline, no thyromegaly Respiratory: + cough, able to speak in complete sente nces and + tachypneic; no labored breathing Cardiovascular: Rate/Rhythm: + tachycardic; + abnormal rhythm Heart Sounds: normal S1 and normal S2 Gastrointestinal (Abdomen): normal bowel sounds, soft, nontender, no hepatosplenomegaly Skin: no rashes, warm and dry + pallor Neurologic: PERRL, EOMI, accommodation nl, no face palsy, no dysarthria Psychiatric: A+Ox3, euthymic affect Results & Data Vital Signs (Past 12 Hours) Vital Signs Temp Pulse Pulse Resp BP Pulse Ox O2 Del Method 10/01/25 10:34 60 19 93 Nasal Cannula 10/01/25 09:00 149/70 H 10/01/25 09:00 65 25 H 82 L 10/01/25 08:30 Nasal Cannula 10/01/25 08:00 136/63 10/01/25 08:00 65 26 H 87 L 10/01/25 07:15 129/86 10/01/25 07:00 63 21 95 10/01/25 06:00 133/62 10/01/25 06:00 133/62 10/01/25 06:00 133/62 10/01/25 06:00 133/62 10/01/25 06:00 65 22 93 10/01/25 05:45 67 19 93 10/01/25 05:45 131/59 L 10/01/25 05:45 131/59 L 10/01/25 05:45 131/59 L 10/01/25 05:45 131/59 L 10/01/25 05:30 69 21 10/01/25 05:30 135/67 10/01/25 05:30 135/67 10/01/25 05:30 135/67 10/01/25 05:30 135/67 10/01/25 05:15 61 17 97 10/01/25 05:15 141/64 H 10/01/25 05:15 141/64 H 10/01/25 05:15 141/64 H 10/01/25 05:15 141/64 H 10/01/25 05:15 141/64 H 10/01/25 05:00 63 14 99 10/01/25 05:00 128/65 10/01/25 05:00 128/65 10/01/25 05:00 128/65 12/30/25 05:00 128/65 10/01/25 05:00 128/65 10/01/25 04:45 64 19 100 10/01/25 04:45 135/68 10/01/25 04:45 135/68 10/01/25 04:45 135/68 10/01/25 04:45 135/68 10/01/25 04:45 135/68 10/01/25 04:30 135/67 10/01/25 04:30 135/67 10/01/25 04:30 135/67 10/01/25 04:30 135/67 10/01/25 04:30 72 19 84 L 10/01/25 04:15 69 18 97 10/01/25 04:15 125/54 L 10/01/25 04:15 125/54 L 10/01/25 04:15 125/54 L 10/01/25 04:15 125/54 L 10/01/25 04:00 66 20 95 10/01/25 04:00 119/61 10/01/25 04:00 119/61 10/01/25 04:00 119/61 10/01/25 04:00 119/61 10/01/25 03:45 123/62 10/01/25 03:45 123/62 10/01/25 03:45 123/62 10/01/25 03:45 123/62 10/01/25 03:45 123/62 10/01/25 03:45 68 22 98 10/01/25 03:38 36.6 C 10/01/25 03:30 68 24 97 10/01/25 03:30 103/55 L 10/01/25 03:30 103/55 L 10/01/25 03:30 103/55 L 10/01/25 03:30 103/55 L 10/01/25 03:30 103/55 L 10/01/25 03:24 71 110/49 L 10/01/25 03:16 110/49 L 10/01/25 03:16 110/49 L 10/01/25 03:16 110/49 L 10/01/25 03:16 110/49 L 10/01/25 03:16 110/49 L 10/01/25 03:15 74 19 10/01/25 03:04 131 H 129/71 10/01/25 03:00 132 H 22 96 10/01/25 03:00 129/71 10/01/25 03:00 129/71 10/01/25 03:00 129/71 10/01/25 03:00 129/71 10/01/25 03:00 129/71 10/01/25 02:45 98/70 L 10/01/25 02:45 131 H 16 95 10/01/25 02:45 98/70 L 10/01/25 02:45 98/70 L 10/01/25 02:45 98/70 L 10/01/25 02:45 98/70 L 10/01/25 02:30 107/72 10/01/25 02:30 107/72 10/01/25 02:30 107/72 10/01/25 02:30 107/72 10/01/25 02:30 107/72 10/01/25 02:30 132 H 22 98 10/01/25 02:15 131 H 17 92 10/01/25 02:15 103/70 10/01/25 02:15 103/70 10/01/25 02:15 103/70 10/01/25 02:15 103/70 10/01/25 02:15 103/70 10/01/25 02:00 120 H 20 94 10/01/25 02:00 128/75 10/01/25 02:00 128/75 10/01/25 02:00 128/75 10/01/25 02:00 128/75 10/01/25 02:00 128/75 10/01/25 01:48 102/75 10/01/25 01:48 102/75 10/01/25 01:48 102/75 10/01/25 01:48 102/75 10/01/25 01:48 143 H 90 10/01/25 01:36 142 H 21 96 O2 Flow Rate FiO2 10/01/25 10:34 6 40 10/01/25 09:00 10/01/25 09:00 10/01/25 08:30 5 10/01/25 08:00 10/01/25 08:00 10/01/25 07:15 10/01/25 07:00 10/01/25 06:00 10/01/25 06:00 10/01/25 06:00 10/01/25 06:00 10/01/25 06:00 10/01/25 05:45 10/01/25 05:45 10/01/25 05:45 10/01/25 05:45 10/01/25 05:45 10/01/25 05:30 10/01/25 05:30 10/01/25 05:30 10/01/25 05:30 10/01/25 05:30 10/01/25 05:15 10/01/25 05:15 10/01/25 05:15 10/01/25 05:15 10/01/25 05:15 10/01/25 05:15 10/01/25 05:00 10/01/25 05:00 10/01/25 05:00 10/01/25 05:00 10/01/25 05:00 10/01/25 05:00 10/01/25 04:45 10/01/25 04:45 10/01/25 04:45 10/01/25 04:45 10/01/25 04:45 10/01/25 04:45 10/01/25 04:30 10/01/25 04:30 10/01/25 04:30 10/01/25 04:30 10/01/25 04:30 10/01/25 04:15 10/01/25 04:15 10/01/25 04:15 10/01/25 04:15 10/01/25 04:15 10/01/25 04:00 10/01/25 04:00 10/01/25 04:00 10/01/25 04:00 10/01/25 04:00 10/01/25 03:45 10/01/25 03:45 10/01/25 03:45 10/01/25 03:45 10/01/25 03:45 10/01/25 03:45 10/01/25 03:38 10/01/25 03:30 10/01/25 03:30 10/01/25 03:30 10/01/25 03:30 10/01/25 03:30 10/01/25 03:30 10/01/25 03:24 10/01/25 03:16 10/01/25 03:16 10/01/25 03:16 10/01/25 03:16 10/01/25 03:16 10/01/25 03:15 10/01/25 03:04 10/01/25 03:00 10/01/25 03:00 10/01/25 03:00 10/01/25 03:00 10/01/25 03:00 10/01/25 03:00 10/01/25 02:45 10/01/25 02:45 10/01/25 02:45 10/01/25 02:45 10/01/25 02:45 10/01/25 02:45 10/01/25 02:30 10/01/25 02:30 10/01/25 02:30 10/01/25 02:30 10/01/25 02:30 10/01/25 02:30 10/01/25 02:15 10/01/25 02:15 10/01/25 02:15 10/01/25 02:15 10/01/25 02:15 10/01/25 02:15 10/01/25 02:00 10/01/25 02:00 10/01/25 02:00 10/01/25 02:00 10/01/25 02:00 10/01/25 02:00 10/01/25 01:48 10/01/25 01:48 10/01/25 01:48 10/01/25 01:48 10/01/25 01:48 10/01/25 01:36 Laboratory Results Abnormal lab results 09/30/25 10/01/25 10/01/25 Range/Units 20:56 02:11 02:15 WBC 12.90 H (4.8-10.8) K/ul RBC 2.61 L (4.70-6.10) M/uL Hgb 9.4 L (14.0-18.0) g/dL Hct 28.6 L (42.0-52.0) % MCV 109.6 H (80.0-100.0) fL MCH 36.0 H (25.0-34.0) pg RDW Std Deviation 62.1 H (36.4-46.3) fL RDW Coeff of Ele 15.4 H (11.5-14.5) % Plt Count 61 L (130-400) K/uL MPV 13.4 H (9.4-12.4) fL Chloride 111 H (98-107) mmol/L Creatinine 1.93 H (0.6-1.4) mg/dl BUN/Creatinine Ratio 9.3 L (10-20) Glucose 130 H (70-99(Fasting)) mg/dl POC Glucose 117 H (70-99) mg/dl Calcium 7.6 L (8.6-10.3) mg/dl Magnesium (1.7-2.4) mg/dl B-Natriuretic Peptide 499 H (0-100) pg/ml 10/01/25 Range/Units 11:43 WBC (4.8-10.8) K/ul RBC (4.70-6.10) M/uL Hgb (14.0-18.0) g/dL Hct (42.0-52.0) % MCV (80.0-100.0) fL MCH (25.0-34.0) pg RDW Std Deviation (36.4-46.3) fL RDW Coeff of Ele (11.5-14.5) % Plt Count (130-400) K/uL MPV (9.4-12.4) fL Chloride (98-107) mmol/L Creatinine (0.6-1.4) mg/dl BUN/Creatinine Ratio (10-20) Glucose (70-99(Fasting)) mg/dl POC Glucose (70-99) mg/dl Calcium (8.6-10.3) mg/dl Magnesium 2.6 H (1.7-2.4) mg/dl B-Natriuretic Peptide (0-100) pg/ml Diagnostic Findings Abdomen/Pelvis CT 09/24/25 15:29 EXAM: CT Abdomen and Pelvis Without Intravenous Contrast INDICATION: Vomiting and diarrhea TECHNIQUE: Axial computed tomography images of the abdomen and pelvis without intravenous contrast. Sagittal and coronal reformatted images were created and reviewed. This CT exam was performed using one or more of the following dose reduction techniques: automated exposure control, adjustment of the mA and/or kV according to patient size, and/or use of iterative reconstruction technique. COMPARISON: 02/03/2023 FINDINGS: Limitations: None. Lung bases: There is consolidation in the dependent lower lobes left greater than right. Pleural space: There are small layering bilateral pleural effusions. Heart: Cardiomegaly. Mediastinum: No abnormality noted. ABDOMEN: Liver: Lack of intravenous contrast limits detection of some masses. No abnormality noted. Gallbladder and bile ducts: No calcified stones or surrounding fluid. No ductal dilation. Pancreas: No pancreatic mass, calcification, inflammation or ductal dilation noted. Spleen: No acute abnormality noted. Adrenals: No acute abnormality noted. Kidneys and ureters: Stable bilateral renal cysts most of which clearly appear benign. Others are hyperdense and unchanged. Stomach and bowel: The stomach is collapsed and cannot be optimally assessed. Multiple small and large bowel loops are mildly dilated with fluid and air. Left colonic diverticula noted. Mild thickening of the lateral conal fascia identified which may reflect mild adjacent diverticulitis. No obstructing point. PELVIS: Appendix: Well seen and appears normal. Bladder: Appears normal for the degree of filling. No stones or inflammation. No large mass. Masses may not be detected in the absence of opacification. Reproductive: No abnormalities noted. ABDOMEN and PELVIS: Intraperitoneal space: No free air. No significant fluid collection. Bones/joints: No acute changes. Posterior L4-S1 fusion hardware well-seated and intact. Diffuse degenerative changes. Soft tissues: No acute abnormality noted. Vasculature: Stable atherosclerosis of the aorta with mild aneurysm of the infrarenal segment to 3.3 cm. No hemorrhage. Lymph nodes: No pathologically enlarged lymph nodes. IMPRESSION: 1. Ileus with findings suggestive of mild descending colonic acute diverticulitis. 2. Small layering pleural effusions and compressive bilateral lower lobe consolidation. 3. Stable 3.3 cm infrarenal abdominal aortic aneurysm without hemorrhage. ACR White Paper guidelines (Constance, et al. JACR 2013; 10(10):789-94) suggest abdomen/pelvis CT or MR imaging follow-up in 3 years. ACT 112: N/A Electronically signed by Michelle Fields 09-24-2025 5:21 PM Chest X-Ray 09/30/25 02:07 EXAM: XR chest 1V portable CLINICAL HISTORY: eval in setting of worsening hypoxia TECHNIQUE: An X-ray image of the chest is obtained in AP projection. COMPARISON: 09/28/2025 08:38:44 DEVELOPMENT TECHNOLOGIST. FINDINGS: Central venous line seen is moderate side. Ill-defined ground-glass opacities noted involving left lower zone - likely congestive changes. Blunting of left costophrenic angle - suggestive of left sided pleural effusion. Minimal blunting of right costophrenic angle - possibility of pleural effusion/thickening. Apparent cardiomegaly. No acute osseous abnormality. IMPRESSION: Central venous line seen is moderate side. Ill-defined ground-glass opacities noted involving left lower zone - likely congestive changes.-reduced Blunting of left costophrenic angle - suggestive of left sided pleural effusion. reduced Minimal blunting of right costophrenic angle - possibility of pleural effusion/thickening. reduced Apparent cardiomegaly.-stable. Electronically signed by Sergo Ozuna 09-30-2025 03:34 AM Medications Administered Current Inpatient Medications Acetaminophen (Acetaminophen 325 Mg Tab) 650 mg PO Q4H PRN PRN Reason: Pain or Fever Stop: 10/24/25 21:15 Acetylcysteine (Acetylcysteine 10% Inhal Soln 4 Ml Dispensed By Resp.) 2 ml INH BID [facility]ANEL[facility] Stop: 10/31/25 20:59 Aspirin (Aspirin 81 Mg Ectab) 81 mg PO QAM [facility]AN[facility]LE Stop: 10/25/25 08:59 Atorvastatin Calcium (Atorvastatin 40 Mg Tab) 40 mg PO DAILY CHANELLE Stop: 10/31/25 08:59 Last Admin: 10/01/25 08:46 Dose: 40 mg Calcium/Vitamin D (Calcium 600mg + Vit D 400 Iu Tab) 1 tab PO BID CHANELLE Stop: 10/28/25 08:59 Last Admin: 10/01/25 08:48 Dose: 1 tab Fluticasone Furoate (Fluticasone Furoate 200mcg 14 Puffs/Inhaler) 1 puffs INH DAILY [facility]ANELLE Stop: 10/24/25 21:44 Last Admin: 10/01/25 08:48 Dose: 1 puffs Folic Acid (Folic Acid 1 Mg Tab) 1 mg PO QAM [facility]ELLE Stop: 10/25/25 08:59 Last Admin: 10/01/25 08:47 Dose: 1 mg Amiodarone HCl/Dextrose (Nexterone / D5w) 360 mg in 200 mls @ 16.667 mls/hr IV .Q12H [facility] Stop: 10/31/25 07:44 Last Admin: 10/01/25 07:30 Dose: 0.5 mg/min, 16.7 mls/hr Ipratropium [place] (Ipratropium [place] Neb Soln 0.02% 0.5mg/2.5ml Vial) 0.5 mg NEB QIDR [facility] Stop: 10/31/25 06:59 Last Admin: 10/01/25 10:32 Dose: 0.5 mg Lactobacillus Acidophilus (Advanced Probiotic 625 Mg Capsule) 1,250 mg PO QAM [facility] Stop: 10/25/25 08:59 Last Admin: 10/01/25 08:47 Dose: 1,250 mg Levalbuterol HCl (Levalbuterol Hcl 0.63 Mg/3 Ml Neb) 0.63 mg NEB [facility]; Protocol Stop: 10/31/25 06:59 Last Admin: 10/01/25 10:31 Dose: 0.63 mg Magnesium Hydroxide (Magnesium Hydroxide Susp 30 Ml Udc) 30 ml PO Q12H PRN PRN Reason: Constipation Stop: 10/24/25 21:15 Metoprolol Succinate (Metoprolol Succ 25mg Ext Rel Tab) 25 mg PO BID [facility] Stop: 10/30/25 09:44 Last Admin: 10/01/25 08:46 Dose: 25 mg Metoprolol Tartrate (Metoprolol Tartrate 1 Mg/Ml Vial) 2.5 mg IV Q4 PRN PRN Reason: HR >100 and hold for SBP < 100 Stop: 10/31/25 03:59 Last Admin: 10/01/25 03:04 Dose: 2.5 mg Midodrine (Midodrine Hcl 10 Mg Tab) 10 mg PO TID@0800,1200,1700 [facility] Stop: 10/29/25 07:59 Last Admin: 10/01/25 12:21 Dose: 10 mg Ondansetron HCl (Ondansetron Inj 2 Mg/Ml 2 Ml Vial) 4 mg IV Q6H PRN PRN Reason: Nausea Stop: 10/24/25 21:15 Oxycodone HCl (Oxycodone Hcl Ir 5 Mg Tab (Immediate Release)) 5 mg PO Q4H PRN PRN Reason: pain Stop: 10/08/25 18:30 Pantoprazole Sodium (Pantoprazole 40 Mg Tab) 40 mg PO BID [facility] Stop: 10/24/25 20:59 Last Admin: 10/01/25 08:47 Dose: 40 mg Polyethylene Glycol (Polyethylene (Miralax) 17 Gm Pack) 17 gm PO DAILY PRN PRN Reason: Constipation Stop: 10/24/25 21:15 Sodium Chloride (Sodium Chloride 0.65% Na Soln 45 Ml ([place])) 1 sprays NA Q4 PRN; Protocol PRN Reason: Congestion Stop: 10/30/25 23:40 Umeclidinium/Vilanterol (Umeclidinium/Vilanterol 62.5/25mcg 7 Puffs/Inhaler) 1 puffs INH DAILY [facility]ANELLE Stop: 10/24/25 21:44 Last Admin: 10/01/25 08:48 Dose: 1 puffs Vitamin B Complex (Vitamin B Complex Tab) 1 tab PO QAM [facility] Stop: 10/25/25 08:59 Last Admin: 10/01/25 08:47 Dose: 1 tab PG Care Time/CCT Total # of Minutes Spent Total Time Spent with Patient: Total time spent is greater than 50% in coordination of care (as documented) at patient's floor/unit and/or counseling patient: Coding [place] [address] SUB INP/OBS CARE 2/35MIN Patient Type Established History Problem Focused Exam Problem Focused Medical Decision Making Moderate Complexity Diagnoses Shortness of breath R06.02 Palliative care by specialist Z51.5 Counseling regarding goals of care Z71.89
--- NOTE | 2025-10-01 13:29 | Hospitalist Progress Note ---
Date of Service October 01, 2025 Assessment & Plan (1) Acute hypoxic respiratory failure: (2) Pulmonary edema: (3) Pleural effusion: (4) Acute on chronic heart failure with preserved ejection fraction: (5) Ileus: (6) Diverticulitis: (7) Acute kidney injury superimposed on stage 3a chronic kidney disease: (8) Elevated troponin: Plan Mr. 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 #Shock #Multifactorial: Septic from Pneumonia, Diverticulitis; Hypovolemic from Diarrhea; Cardiogenic from systolic CHF blood culture: negative x 48 hrs sputum culture: NGTD started back on phenlyephrine, Midodrine added and increased to 10mg TID Echocardiogram was performed. Moderately reduced systolic function with an EF of 40 to 45% and global hypokinesis. Grade 2 diastolic dysfunction. Normal RV size and function. Mild aortic stenosis, mild to moderate pulmonic regurg, mild MR and TR. Transferred back to ICU 09/28 iso a fib rvr and hypotension Completed zosyn 09/29 BP stable Plan -Observe off further abx -Wean down to midodrine to 5mg TID -Dispo is home hospice #Atrial Fibrillation with RVR -Went back into RVR last night 09/30 -Back on admio drip Plan -Appreciate cardio input -Continue admio drip for now -Continue toprol BID #Acute hypoxic respiratory failure, multifactorial #Interstitial pulmonary edema, small to moderate L pleural effusion seen on CXR #Small layering pleural effusions and compressive bilateral lower lobe consolidation seen on CTAP #Acute on chronic HFpEF Resp BioFire negative. Requiring 8L OxyMask in ED, maintaining sats in the upper 90s. BNP 1006 however pt is hypotensive and appears dry on exam, s/p 1.5L IVF in the ED. Continue IVF, update TTE as per below. Prior TTE last month: EF 55%, moderately dilated LA, moderate MR, mild TR. Wean O2 as tolerated. Does have nonproductive cough/congestion and CXR reads patchy bibasilar opacities, possible PNA. Pulm toileting as able. continue nebs/inhalers Down to 6L NC today. encouraged flutter valve and IS use #ANDRES superimposed on CKD stage IIIa Cr previously 1.8 as of 08/19/25, appears baseline prior to that was around 1- 1.2 as per records. Cr 3.25 on presentation Suspect related to volume depletion ISO above, IVF onboard. slowly improving despite hypotensive episode Cr stable at 1.9 #Ileus with findings suggestive of mild descending colonic acute diverticulitis on CTAP Maintain NPO status, continue IVF and PRN electrolyte repletion. S/p IV Zithromax, Rocephin and Flagyl in ED. Appreciate gen surgery consult-no surgical intervention Tolerating regular diet #Leukocytosis no clear new source of infection, notably volume overloaded probably reactive, closely monitor procal 0.34 Cultures NGTD Monitor off abx #Pancytopenia *resolved #Chronic anemia #Metastatic poorly-differentiated carcinoma with unknown primary, most likely origin thought pulmonary F/w [facility] oncology, Dr. Everett. Diagnosed in 2023. PET scan done on 04/23/24 which revealed metabolically active pleural-based lung nodules suspicious for metastases and metabolically active prevascular and left suprahilar lymphadenopathy. Completed 6 cycles of combination of pemetrexed plus carboplatin Keytruda with overall good tolerance. Follow-up PET scan done after 4 cycles of chemotherapy revealed good response. Was on maintenance treatment including combination of pemetrexed and Keytruda. Follow-up PET scan done on 08/07/25 revealed disease progression. Now on combination Docetaxel and Ramucirumab; last received chemotherapy on 09/17/25. Continue PRN oxy IR for cancer-related pain. Neutropenic precautions, fall precautions in light of thrombocytopenia. Neutropenia improved, stable hgb Platelets relatively stable , continue to hold anticoagulation Palliative care consulted for GOC, appreciate input #DMII with peripheral vascular disease: Hgb A1c 5.7% 1mo ago, SSI protocol while admitted with BSG checks ACHS. #ASCVD: Continue ASA, statin therapy. #COPD: Continue home inhalers #Infrarenal abdominal aortic aneurysm Appears stable on CTAP today, measuring 3.3cm. Recommend CTAP or MR imaging follow-up in 3yr as per ACR White Paper guidelines. #HTN: Hold lisinopril for now given hypotension and ANDRES, resume as able/tolerated. #GERD: Continue PPI BID. #BPH: Continue Flomax. #Hypocalcemia: Check vit D level, continue to monitor. DVT Prophylaxis: SCDs/TEDs only for now in light of thrombocytopenia Code Status: FULL CODE I spent a total of 51minutes coordinating, documenting, and providing care for this patient excluding time spent in the performance of separately billed services. This included personally reviewing all current laboratories and imaging studies, medical reconciliation, outpatient chart review and discussion with specialists Admission and Anticipated Discharge Date Admission Date: September 24, 2025 Subjective Seen this AM. feelling ok. he would like to go home [facility]. he wishes to go on hospice. Physical Exam Physical Exam: Vitals and labs reviewed General: chronically ill appearing NAD HEENT: EOMI, PERRLA R IJ Neck: Supple Cardiac: RRR Lungs: Decreased bs bilaterally. faint bibasilar rales. no rhonchi or wheez. no distress Abd: S NT ND BS positive : connelly MSK: Full ROM. No obvious deformities Ext: No Edema cyanosis Skin: Warm, Dry Neuro: AOx3 No focal deficits. Psych: Normal Mood Results & Data Results & Data Vital Signs (Past 12 Hours) Vital Signs Temp Pulse Pulse Resp BP Pulse Ox O2 Del Method 10/01/25 10:34 60 19 93 Nasal Cannula 10/01/25 09:00 149/70 H 10/01/25 09:00 65 25 H 82 L 10/01/25 08:30 Nasal Cannula 10/01/25 08:00 136/63 10/01/25 08:00 65 26 H 87 L 10/01/25 07:15 129/86 10/01/25 07:00 63 21 95 10/01/25 06:00 133/62 10/01/25 06:00 133/62 10/01/25 06:00 133/62 10/01/25 06:00 133/62 10/01/25 06:00 65 22 93 10/01/25 05:45 67 19 93 10/01/25 05:45 131/59 L 10/01/25 05:45 131/59 L 10/01/25 05:45 131/59 L 10/01/25 05:45 131/59 L 10/01/25 05:30 69 21 10/01/25 05:30 135/67 10/01/25 05:30 135/67 10/01/25 05:30 135/67 10/01/25 05:30 135/67 10/01/25 05:15 61 17 97 10/01/25 05:15 141/64 H 10/01/25 05:15 141/64 H 10/01/25 05:15 141/64 H 10/01/25 05:15 141/64 H 10/01/25 05:15 141/64 H 10/01/25 05:00 63 14 99 10/01/25 05:00 128/65 10/01/25 05:00 128/65 10/01/25 05:00 128/65 10/01/25 05:00 128/65 10/01/25 05:00 128/65 10/01/25 04:45 64 19 100 10/01/25 04:45 135/68 10/01/25 04:45 135/68 10/01/25 04:45 135/68 10/01/25 04:45 135/68 10/01/25 04:45 135/68 10/01/25 04:30 135/67 10/01/25 04:30 135/67 10/01/25 04:30 135/67 10/01/25 04:30 135/67 10/01/25 04:30 72 19 84 L 10/01/25 04:15 69 18 97 10/01/25 04:15 125/54 L 10/01/25 04:15 125/54 L 10/01/25 04:15 125/54 L 10/01/25 04:15 125/54 L 10/01/25 04:00 66 20 95 10/01/25 04:00 119/61 10/01/25 04:00 119/61 10/01/25 04:00 119/61 10/01/25 04:00 119/61 10/01/25 03:45 123/62 10/01/25 03:45 123/62 10/01/25 03:45 123/62 10/01/25 03:45 123/62 10/01/25 03:45 123/62 10/01/25 03:45 68 22 98 10/01/25 03:38 36.6 C 10/01/25 03:30 68 24 97 10/01/25 03:30 103/55 L 10/01/25 03:30 103/55 L 10/01/25 03:30 103/55 L 10/01/25 03:30 103/55 L 10/01/25 03:30 103/55 L 10/01/25 03:24 71 110/49 L 10/01/25 03:16 110/49 L 10/01/25 03:16 110/49 L 10/01/25 03:16 110/49 L 10/01/25 03:16 110/49 L 10/01/25 03:16 110/49 L 10/01/25 03:15 74 19 10/01/25 03:04 131 H 129/71 10/01/25 03:00 132 H 22 96 10/01/25 03:00 129/71 10/01/25 03:00 129/71 10/01/25 03:00 129/71 10/01/25 03:00 129/71 10/01/25 03:00 129/71 10/01/25 02:45 98/70 L 10/01/25 02:45 131 H 16 95 10/01/25 02:45 98/70 L 10/01/25 02:45 98/70 L 10/01/25 02:45 98/70 L 10/01/25 02:45 98/70 L 10/01/25 02:30 107/72 10/01/25 02:30 107/72 10/01/25 02:30 107/72 10/01/25 02:30 107/72 10/01/25 02:30 107/72 10/01/25 02:30 132 H 22 98 10/01/25 02:15 131 H 17 92 10/01/25 02:15 103/70 10/01/25 02:15 103/70 10/01/25 02:15 103/70 10/01/25 02:15 103/70 10/01/25 02:15 103/70 10/01/25 02:00 120 H 20 94 10/01/25 02:00 128/75 10/01/25 02:00 128/75 10/01/25 02:00 128/75 10/01/25 02:00 128/75 10/01/25 02:00 128/75 10/01/25 01:48 102/75 10/01/25 01:48 102/75 10/01/25 01:48 102/75 10/01/25 01:48 102/75 10/01/25 01:48 143 H 90 10/01/25 01:36 142 H 21 96 O2 Flow Rate FiO2 10/01/25 10:34 6 40 10/01/25 09:00 10/01/25 09:00 10/01/25 08:30 5 10/01/25 08:00 10/01/25 08:00 10/01/25 07:15 10/01/25 07:00 10/01/25 06:00 10/01/25 06:00 10/01/25 06:00 10/01/25 06:00 10/01/25 06:00 10/01/25 05:45 10/01/25 05:45 10/01/25 05:45 10/01/25 05:45 10/01/25 05:45 10/01/25 05:30 10/01/25 05:30 10/01/25 05:30 10/01/25 05:30 10/01/25 05:30 10/01/25 05:15 10/01/25 05:15 10/01/25 05:15 10/01/25 05:15 10/01/25 05:15 10/01/25 05:15 10/01/25 05:00 10/01/25 05:00 10/01/25 05:00 10/01/25 05:00 10/01/25 05:00 10/01/25 05:00 10/01/25 04:45 10/01/25 04:45 10/01/25 04:45 10/01/25 04:45 10/01/25 04:45 10/01/25 04:45 10/01/25 04:30 10/01/25 04:30 10/01/25 04:30 10/01/25 04:30 10/01/25 04:30 10/01/25 04:15 10/01/25 04:15 10/01/25 04:15 10/01/25 04:15 10/01/25 04:15 10/01/25 04:00 10/01/25 04:00 10/01/25 04:00 10/01/25 04:00 10/01/25 04:00 10/01/25 03:45 10/01/25 03:45 10/01/25 03:45 10/01/25 03:45 10/01/25 03:45 10/01/25 03:45 10/01/25 03:38 10/01/25 03:30 10/01/25 03:30 10/01/25 03:30 10/01/25 03:30 10/01/25 03:30 10/01/25 03:30 10/01/25 03:24 10/01/25 03:16 10/01/25 03:16 10/01/25 03:16 10/01/25 03:16 10/01/25 03:16 10/01/25 03:15 10/01/25 03:04 10/01/25 03:00 10/01/25 03:00 10/01/25 03:00 10/01/25 03:00 10/01/25 03:00 10/01/25 03:00 10/01/25 02:45 10/01/25 02:45 10/01/25 02:45 10/01/25 02:45 10/01/25 02:45 10/01/25 02:45 10/01/25 02:30 10/01/25 02:30 10/01/25 02:30 10/01/25 02:30 10/01/25 02:30 10/01/25 02:30 10/01/25 02:15 10/01/25 02:15 10/01/25 02:15 10/01/25 02:15 10/01/25 02:15 10/01/25 02:15 10/01/25 02:00 10/01/25 02:00 10/01/25 02:00 10/01/25 02:00 10/01/25 02:00 10/01/25 02:00 10/01/25 01:48 10/01/25 01:48 10/01/25 01:48 10/01/25 01:48 10/01/25 01:48 10/01/25 01:36
--- NOTE | 2025-10-01 14:19 | Cardiology Progress Note ---
Date of Service October 01, 2025 Assessment & Plan (1) SVT (supraventricular tachycardia): (2) Hypotension: (3) Paroxysmal atrial flutter: (4) Shock: (5) Dysrhythmia: (6) Hypoxia: (7) ASCVD (arteriosclerotic cardiovascular disease): Plan 80-year-old male with metastatic malignancy with unknown primary (previously treated with pemetrexed and Keytruda) who developed nausea, vomiting, diarrhea, poor oral intake, and progressive weakness after initiation of Ramucirumab (C yramza) and docetaxel (Taxotere) on September 17, 2025. Patient ultimately presented to the [facility] ER on 09/24/2025 hypoxic (84%), hypotensive (74/54), and tachycardic (150 bpm). Laboratory work with acute kidney injury (creatinine 3.25 mg/dL). CBC with pancytopenia, marked thrombocytopenia (40K). High sensitivity troponin elevated (611.8 -> 679.6 -> 635.7 -> 535.6 pg/mL), representing demand ischemia in the setting of critical illness. Echocardiography with moderate reduction in LV systolic function (EF 40-45%) without regional wall motion abnormalities. Patient asymptomatic in regards to overt angina. Patient with ongoing asymptomatic paroxysms of narrow complex tachycardia consistent with SVT/PAT, possible atrial flutter/fibrillation Recommendations: * Supplement potassium orally. * Increase metoprolol succinate to 50 mg twice a day. * Transition IV amiodarone back to oral, 200 mg TID while hospitalized. 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 I have reviewed the advance practitioner's documentation, and I agree with, and take responsibility for the plan of care. 80-year-old male with metastatic malignancy presenting with hypovolemic shock secondary to nausea, vomiting, poor p.o. intake, and diarrhea. Recurrent SVT at 135 bpm recorded overnight with associated asymptomatic hypotension. IV amiodarone restarted. Patient transferred back to intensive care for observation. Converted to normal sinus rhythm at approximately 3 AM. Currently feeling well without cardiovascular concerns or symptoms. Recommend continue IV amiodarone for additional 24 hours. Titrate metoprolol to 50 mg twice daily. Continue telemetry monitoring. Repeat limited 2D transthoracic echocardiogram to exclude pericardial effusion. Continue midodrine for blood pressure support. Risks of long-term anticoagulation appears to outweigh benefit at this time. James Robert DO, [facility] Subjective Patient seen and examined. Chart, medications, and telemetry reviewed. Patient denies palpitations, chest pain, worsening shortness of breath, orthopnea, PND, or edema. Cough improved. Two loose stools today; no diarrhea. Review of Systems Review of Systems: Complete review of systems is as stated above, negative, or noncontributory. Physical Exam Physical Exam: General: Resting comfortable Skin: Stable pallor HENT: Normocephalic. Atraumatic. Eyes: PER. Conjunctiva pink, sclera pale. Neck: No JVD. Heart: Regular at 60 bpm. Soft systolic murmur. No rub. Lungs: Decreased. Diminished. Mild expiratory wheeze. Absent breath sounds at the left base. Abdomen: +BS. Soft. Nontender. No masses or organomegaly. Valenzuela catheter in place Extremities: No distal edema. Limited neurological examination is without focal deficits. Pulses: radial=2/4, posterior tibial=1-2/4 on the left and 2/4 on the right Results & Data Vital Signs (Past 12 Hours) Vital Signs Temp Pulse Pulse Resp BP Pulse Ox O2 Del Method 10/01/25 10:34 60 19 93 Nasal Cannula 10/01/25 09:00 149/70 H 10/01/25 09:00 65 25 H 82 L 10/01/25 08:30 Nasal Cannula 10/01/25 08:00 136/63 10/01/25 08:00 65 26 H 87 L 10/01/25 07:15 129/86 10/01/25 07:00 63 21 95 10/01/25 06:00 133/62 10/01/25 06:00 133/62 10/01/25 06:00 133/62 10/01/25 06:00 133/62 10/01/25 06:00 65 22 93 10/01/25 05:45 67 19 93 10/01/25 05:45 131/59 L 10/01/25 05:45 131/59 L 10/01/25 05:45 131/59 L 10/01/25 05:45 131/59 L 10/01/25 05:30 69 21 10/01/25 05:30 135/67 10/01/25 05:30 135/67 10/01/25 05:30 135/67 10/01/25 05:30 135/67 10/01/25 05:15 61 17 97 10/01/25 05:15 141/64 H 10/01/25 05:15 141/64 H 10/01/25 05:15 141/64 H 10/01/25 05:15 141/64 H 10/01/25 05:15 141/64 H 10/01/25 05:00 63 14 99 10/01/25 05:00 128/65 10/01/25 05:00 128/65 10/01/25 05:00 128/65 10/01/25 05:00 128/65 10/01/25 05:00 128/65 10/01/25 04:45 64 19 100 10/01/25 04:45 135/68 10/01/25 04:45 135/68 10/01/25 04:45 135/68 10/01/25 04:45 135/68 10/01/25 04:45 135/68 10/01/25 04:30 135/67 10/01/25 04:30 135/67 10/01/25 04:30 135/67 10/01/25 04:30 135/67 10/01/25 04:30 72 19 84 L 10/01/25 04:15 69 18 97 10/01/25 04:15 125/54 L 10/01/25 04:15 125/54 L 10/01/25 04:15 125/54 L 10/01/25 04:15 125/54 L 10/01/25 04:00 66 20 95 10/01/25 04:00 119/61 10/01/25 04:00 119/61 10/01/25 04:00 119/61 10/01/25 04:00 119/61 10/01/25 03:45 123/62 10/01/25 03:45 123/62 10/01/25 03:45 123/62 10/01/25 03:45 123/62 10/01/25 03:45 123/62 10/01/25 03:45 68 22 98 10/01/25 03:38 36.6 C 10/01/25 03:30 68 24 97 10/01/25 03:30 103/55 L 10/01/25 03:30 103/55 L 10/01/25 03:30 103/55 L 10/01/25 03:30 103/55 L 10/01/25 03:30 103/55 L 10/01/25 03:24 71 110/49 L 10/01/25 03:16 110/49 L 10/01/25 03:16 110/49 L 10/01/25 03:16 110/49 L 10/01/25 03:16 110/49 L 10/01/25 03:16 110/49 L 10/01/25 03:15 74 19 10/01/25 03:04 131 H 129/71 10/01/25 03:00 132 H 22 96 10/01/25 03:00 129/71 10/01/25 03:00 129/71 10/01/25 03:00 129/71 10/01/25 03:00 129/71 10/01/25 03:00 129/71 10/01/25 02:45 98/70 L 10/01/25 02:45 131 H 16 95 10/01/25 02:45 98/70 L 10/01/25 02:45 98/70 L 10/01/25 02:45 98/70 L 10/01/25 02:45 98/70 L 10/01/25 02:30 107/72 10/01/25 02:30 107/72 10/01/25 02:30 107/72 10/01/25 02:30 107/72 10/01/25 02:30 107/72 10/01/25 02:30 132 H 22 98 Laboratory Results Cardiac Enzymes 10/01/25 Range/Units 02:15 B-Natriuretic Peptide 499 H (0-100) pg/ml Coagulation 10/01/25 Range/Units 02:15 B-Natriuretic Peptide 499 H (0-100) pg/ml CBC 10/01/25 Range/Units 02:11 WBC 12.90 H (4.8-10.8) K/ul RBC 2.61 L (4.70-6.10) M/uL Hgb 9.4 L (14.0-18.0) g/dL Hct 28.6 L (42.0-52.0) % Plt Count 61 L (130-400) K/uL Comprehensive Metabolic Panel 09/30/25 10/01/25 10/01/25 Range/Units 14:02 02:11 11:43 Sodium 143 (136-145) mmol/L Potassium 4.8 D 3.7 D 3.8 (3.5-5.1) mmol/L Chloride 111 H (98-107) mmol/L Carbon Dioxide 24 (21-32) mmol/L BUN 18 (6-23) mg/dl Creatinine 1.93 H (0.6-1.4) mg/dl Glucose 130 H (70-99(Fasting)) mg/dl Calcium 7.6 L (8.6-10.3) mg/dl Intake and Output 09/30/25 10/01/25 10/01/25 22:59 06:59 14:59 Intake Total 857 / 2285.917 764.167 / 2285.917 400 / 400 Output Total 1350 / 3551 400 / 3551 Balance -493 / -1265.083 364.167 / -1265.083 400 / 400 Intake: IV 857 / 1885.917 764.167 / 1885.917 400 / 400 Amiodarone / D5w 150 mg In 100 100 / 100 ml @ 600 mls/hr IV NOW STA Rx#: [id number] Amiodarone / D5w 360 mg In 200 200 / 200 ml @ 1 MG/MIN 33.333 mls/hr IV ONE ONE Rx#:[id number] Lactated Ringer's 500 ml @ 999 500 / 500 mls/hr IV .Q31M ONE Rx#: [id number] Magnesium Sulfate / D5w 1 gm In 164.167 / 164.167 200 / 200 100 ml @ 50 mls/hr IV Q2H CHANELLE Rx#:[id number] Piperacillin/Tazobactam 4.5 gm 100 / 200.000 In 100 ml @ 25 mls/hr IV Q8H CHANELLE Rx#:[id number] Potassium Phosphate 21 mmol In 507 / 507 Sodium Chloride 0.9% 500 ml @ 88 mls/hr IV ONE ONE Rx#: [id number] Sodium Chloride 0.9% 250 ml @ 250 / 250 999 mls/hr IV .Q16M ONE Rx#: [id number] Output: Urine Amount (Catheter) 1350 / 3550 400 / 3550 Coude 1350 / 3550 400 / 3550 Other: Weight 81.4 kg 81.4 kg Weight Measurement Method Built in [facility] Patient Weight 10/02/25 06:59 Weight 81.4 kg Diagnostic Findings Telemetry: Paroxysms of SVT, 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 Transient wide complex rhythms on telemetry are artifactual. PG Care Time/CCT Total # of Minutes Spent Total Time Spent with Patient: Total time spent is greater than 50% in coordination of care (as documented) at patient's floor/unit and/or counseling patient: Coding Level of Care Code 73899 SUB INP/OBS CARE 3/50MIN Diagnoses SVT (supraventricular tachycardia) I47.10 Hypotension I95.9 Paroxysmal atrial flutter I48.92 Shock R57.9 Dysrhythmia I49.9 Arrhythmia type: atrial fibrillation Hypoxia R09.02 ASCVD (arteriosclerotic cardiovascular disease) I25.10 (5) Dysrhythmia Arrhythmia type: atrial fibrillation
--- NOTE | 2025-10-01 15:22 | Electrocardiogram Report ---
Test Reason : Blood Pressure : */* mmHG Vent. Rate : 65 BPM Atrial Rate : 65 BPM P-R Int : 178 ms QRS Dur : 96 ms QT Int : 418 ms P-R-T Axes : 68 42 88 degrees QTcB Int : 434 ms Normal sinus rhythm Nonspecific T wave abnormality Abnormal ECG When compared with ECG of 29-Sep-2025 12:25, Vent. rate has decreased by 78 bpm Criteria for Inferior infarct are no longer Present ST now depressed in Inferior leads ST no longer depressed in Anterolateral leads Confirmed by Kiel Yepez ([id number]) on 10/01/2025 3:21:22 PM Referred By: REFERRED SELF Confirmed By: Kiel Yepez
--- NOTE | 2025-10-01 16:36 | Communication Note ---
Date of Service: October 01, 2025 ,edward last night again went to rapid afib with Hr in 140's and SBp in 80. after 250 cc fluid bolus SBP improved to 90's got iv Lopressor 2.5mg and as SBP improved to 100;s and still heart rates in 130-140 gave another dose of iv Lopressor 2.5mg. But no improvement. Again SBP was in 80's and HR in 140's. Talked with ICU and transferred back to ICU. ICU recommended 500cc fluid LR bolus. Cardio recommended restarting amio drip. Appreciate cardio and critical care help
--- NOTE | 2025-10-01 17:04 | XCELERA ---
[id number] \\[id number]
[2025-10-01] MEDS: FUROSEMIDE INJ 20 MG/2 ML VIAL IV ONE (17:12)
[2025-10-01] MEDS: MIDODRINE HCL 2.5 MG TAB PO SCH (17:12)
[2025-10-01] MEDS: ACETYLCYSTEINE 10% INHAL SOLN 4 ML **DISPENSED BY RESP. INH SCH (20:17)
[2025-10-01] MEDS: METOPROLOL SUCC 50MG EXT REL TAB PO SCH (20:44)
[2025-10-01 20:51] VITALS: TEMP 97.5
[2025-10-02] MEDS: ASPIRIN 81 MG ECTAB PO SCH (08:21)
--- NOTE | 2025-10-02 09:23 | Cardiology Progress Note ---
Date of Service October 02, 2025 Assessment & Plan (1) SVT (supraventricular tachycardia): (2) Hypotension: (3) Paroxysmal atrial flutter: (4) Shock: (5) Dysrhythmia: (6) Hypoxia: (7) ASCVD (arteriosclerotic cardiovascular disease): Plan 80-year-old male with metastatic malignancy with unknown primary (previously treated with pemetrexed and Keytruda) who developed nausea, vomiting, diarrhea, poor oral intake, and progressive weakness after initiation of Ramucirumab (C yramza) and docetaxel (Taxotere) on September 17, 2025. Patient ultimately presented to the [facility] ER on 09/24/2025 hypoxic (84%), hypotensive (74/54), and tachycardic (150 bpm). Laboratory work with acute kidney injury (creatinine 3.25 mg/dL). CBC with pancytopenia, marked thrombocytopenia (40K). High sensitivity troponin elevated (611.8 -> 679.6 -> 635.7 -> 535.6 pg/mL), representing demand ischemia in the setting of critical illness. Echocardiography with moderate reduction in LV systolic function (EF 40-45%) without regional wall motion abnormalities. Patient asymptomatic in regards to overt angina. Patient with ongoing asymptomatic paroxysms of narrow complex tachycardia consistent with SVT/PAT, possible atrial flutter/fibrillation Recommendations: * Discontinue IV amiodarone * Restart oral amiodarone 200 mg twice a day. * Continue metoprolol succinate at 50 mg twice a day. * Risks of retirement anticoagulation appear greater than the benefit (thrombocytopenia, anemia, patient request) * Check a basic metabolic panel as follow-up to the IV furosemide yesterday afternoon * Decrease Midodrine dosing to 2.5 mg TID * No lisinopril * Continue aspirin 81 mg/day * Atorvastatin decreased to 40 mg/day given addition of amiodarone * Increase activity as tolerated * Please contact with any cardiac questions or concerns Admission and Anticipated Discharge Date Admission Date: September 24, 2025 Supervising Physician Co-Signing Physician Notes I have personally seen and evaluated this patient. I have reviewed the advance practitioner's documentation, and I agree with, and take responsibility for the plan of care. 80-year-old male with metastatic malignancy presenting with hypovolemic shock secondary to nausea, vomiting, poor p.o. intake, and diarrhea. No recurrent supraventricular tachycardia over the past 24 hours. Limited bedside 2D transthoracic echocardiogram without evidence of significant pericardial effusion. Patient treated with dose of IV furosemide yesterday due to evidence of moderate to large left-sided pleural effusion. Fluid balance negative approximately 1 L with clinical improvement. Remains hemodynamically stable. Recommend transition IV amiodarone to oral formulation. Continue metoprolol 50 mg twice daily. Decrease midodrine to 2.5 mg 3 times daily. Hold KISHA inhibitor. No further inpatient cardiac testing or intervention recommended at this time. Cardiology will sign off. Please call with any additional concerns/questions. James Robert DO, [facility] Subjective Patient seen and examined. Chart, medications, and telemetry reviewed. Feeling OK. No palpitations, chest pain, worsening shortness of breath, orthopnea, PND, or edema. Valenzuela catheter remains in place. Review of Systems Review of Systems: Complete review of systems is as stated above, negative, or noncontributory. Physical Exam Physical Exam: General: Resting comfortable HENT: Normocephalic. Atraumatic. Neck: No JVD. Heart: Regular at 56 bpm. Soft systolic murmur. Lungs: Decreased. Diminished. Diffuse mild expiratory wheeze. Abdomen: +BS. Soft. Nontender. No masses or organomegaly. Valenzuela catheter in place Extremities: No distal edema. Limited neurological examination is without focal deficits. Results & Data Vital Signs (Past 12 Hours) Vital Signs Pulse Pulse Resp BP Pulse Ox O2 Del Method O2 Flow Rate 10/02/25 07:32 56 L 16 90 Nasal Cannula 6 10/02/25 05:00 59 L 21 90 10/02/25 04:30 58 L 19 94 10/02/25 04:01 127/56 L 10/02/25 04:01 127/56 L 10/02/25 04:01 127/56 L 10/02/25 04:01 127/56 L 10/02/25 04:01 127/56 L 10/02/25 04:00 59 L 17 10/02/25 03:30 49 L 15 10/02/25 03:00 48 L 18 90 10/02/25 02:30 50 L 15 91 10/02/25 02:00 151/67 H 10/02/25 02:00 151/67 H 10/02/25 02:00 151/67 H 10/02/25 02:00 151/67 H 10/02/25 02:00 151/67 H 10/02/25 02:00 58 L 17 90 10/02/25 00:30 55 L 19 92 10/02/25 00:00 56 L 10/02/25 00:00 132/61 10/02/25 00:00 132/61 10/02/25 00:00 132/61 10/02/25 00:00 132/61 10/02/25 00:00 132/61 10/02/25 00:00 56 L 21 94 10/01/25 23:30 55 L 17 92 10/01/25 23:00 57 L 19 94 10/01/25 22:00 55 L 21 90 10/01/25 22:00 122/55 L 10/01/25 22:00 122/55 L 10/01/25 22:00 122/55 L 10/01/25 22:00 122/55 L 10/01/25 22:00 122/55 L 10/01/25 21:32 67 21 92 Laboratory Results Comprehensive Metabolic Panel 10/01/25 Range/Units 11:43 Potassium 3.8 (3.5-5.1) mmol/L Intake and Output 10/01/25 10/02/25 10/02/25 22:59 06:59 14:59 Intake Total 200 / 600 200 / 200 Output Total 1150 / 1510 360 / 1510 Balance -950 / -910 -360 / -910 200 / 200 Intake: IV 200 / 600 200 / 200 Amiodarone / D5w 360 mg In 200 200 / 200 200 / 200 ml @ 0.5 MG/MIN 16.667 mls/hr IV .Q12H [facility] Rx#:[id number] Output: Urine Amount (Catheter) 1150 / 1510 360 / 1510 Coude 1150 / 1510 360 / 1510 Other: Weight 77.7 kg Weight Measurement Method Built in [facility] Diagnostic Findings Limited echo on 10/01/2025: No pericardial effusion Large left pleural effusion LVEF 50-55%. Normal IVC diameter and respiratory variation suggesting normal central venous pressure Telemetry: Sinus/sinus bradycardia with occasional ectopy. No pauses. No recurrent atrial arrhythmias over the last 24 hours. PG Care Time/CCT Total # of Minutes Spent Total Time Spent with Patient: Total time spent is greater than 50% in coordination of care (as documented) at patient's floor/unit and/or counseling patient: Coding Level of Care Code 26931 SUB INP/OBS CARE 3/50MIN Diagnoses SVT (supraventricular tachycardia) I47.10 Hypotension I95.9 Paroxysmal atrial flutter I48.92 Shock R57.9 Dysrhythmia I49.9 Arrhythmia type: atrial fibrillation Hypoxia R09.02 ASCVD (arteriosclerotic cardiovascular disease) I25.10 (5) Dysrhythmia Arrhythmia type: atrial fibrillation
[2025-10-02 09:41] VITALS: RESP 23; O2SAT 92
[2025-10-02 09:56] LABS: Anion Gap 6.0 (3-11); Blood Urea Nitrogen 15.0 mg/dl (6-23); Calcium 7.4 mg/dl (8.6-10.3); Carbon Dioxide 26.0 mmol/L (21-32); Chloride 112.0 mmol/L (98-107); Creatinine Clr Calc Pharmacy 36.4 ml/min; Glucose 117.0 mg/dl (70-99(Fasting)); Potassium 3.5 mmol/L (3.5-5.1); Sodium 144.0 mmol/L (136-145)
--- NOTE | 2025-10-02 11:27 | Discharge Summary ---
Discharge Summary Date of Service October 02, 2025 Principal Dx & Hospital Course #1 = Principal Diagnosis (1) Acute hypoxic respiratory failure: (2) Pulmonary edema: (3) Pleural effusion: (4) Acute on chronic heart failure with preserved ejection fraction: (5) Ileus: (6) Diverticulitis: (7) Acute kidney injury superimposed on stage 3a chronic kidney disease: (8) Elevated troponin: Plan Mr. 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 He completed a course of zosyn on 09/29. His O2 requirements improved and stabilized to 6L NC. He has been having intermittent afib with RVR. cardio consulted. he is on amio PO BID and toprol BID. Palliative care consulted and patient, elected for home hospice. Today, patient feels well and wishes to be home for new years shira. d/w on phone who would like him to be sent home today as well. his hospice equipment is being delivered today. Vitals have been relatively stable. Overall prognosis is poor. #Shock #Multifactorial: Septic from Pneumonia, Diverticulitis; Hypovolemic from Diarrhea; Cardiogenic from systolic CHF blood culture: negative x 48 hrs sputum culture: NGTD started back on phenlyephrine, Midodrine added and increased to 10mg TID Echocardiogram was performed. Moderately reduced systolic function with an EF of 40 to 45% and global hypokinesis. Grade 2 diastolic dysfunction. Normal RV size and function. Mild aortic stenosis, mild to moderate pulmonic regurg, mild MR and TR. Transferred back to ICU 09/28 iso a fib rvr and hypotension Completed zosyn 09/29 BP stable Plan -Observe off further abx -Wean down to midodrine to 5mg TID -Dispo is home hospice #Atrial Fibrillation with RVR -Went back into RVR last night 09/30 -Back on admio drip Plan -Appreciate cardio input -Continue admio drip for now -Continue toprol BID #Acute hypoxic respiratory failure, multifactorial #Interstitial pulmonary edema, small to moderate L pleural effusion seen on CXR #Small layering pleural effusions and compressive bilateral lower lobe consolidation seen on CTAP #Acute on chronic HFpEF Resp BioFire negative. Requiring 8L OxyMask in ED, maintaining sats in the upper 90s. BNP 1006 however pt is hypotensive and appears dry on exam, s/p 1.5L IVF in the ED. Continue IVF, update TTE as per below. Prior TTE last month: EF 55%, moderately dilated LA, moderate MR, mild TR. Wean O2 as tolerated. Does have nonproductive cough/congestion and CXR reads patchy bibasilar opacities, possible PNA. Pulm toileting as able. continue nebs/inhalers Down to 6L NC today. encouraged flutter valve and IS use #ANDRES superimposed on CKD stage IIIa Cr previously 1.8 as of 08/19/25, appears baseline prior to that was around 1- 1.2 as per records. Cr 3.25 on presentation Suspect related to volume depletion ISO above, IVF onboard. slowly improving despite hypotensive episode Cr improved to 1.5 today on day of discharge. #Ileus with findings suggestive of mild descending colonic acute diverticulitis on CTAP Maintain NPO status, continue IVF and PRN electrolyte repletion. S/p IV Zithromax, Rocephin and Flagyl in ED. Appreciate gen surgery consult-no surgical intervention Tolerating regular diet #Leukocytosis no clear new source of infection, notably volume overloaded probably reactive, closely monitor procal 0.34 Cultures NGTD Monitor off abx #Pancytopenia *resolved #Chronic anemia #Metastatic poorly-differentiated carcinoma with unknown primary, most likely origin thought pulmonary F/w [facility], Dr. Everett. Diagnosed in 2023. PET scan done on 04/23/24 which revealed metabolically active pleural-based lung nodules suspicious for metastases and metabolically active prevascular and left suprahilar lymphadenopathy. Completed 6 cycles of combination of pemetrexed plus carboplatin Keytruda with overall good tolerance. Follow-up PET scan done after 4 cycles of chemotherapy revealed good response. Was on maintenance treatment including combination of pemetrexed and Keytruda. Follow-up PET scan done on 08/07/25 revealed disease progression. Now on combination Docetaxel and Ramucirumab; last received chemotherapy on 09/17/25. Continue PRN oxy IR for cancer-related pain. Neutropenic precautions, fall precautions in light of thrombocytopenia. Neutropenia improved, stable hgb Platelets relatively stable , continue to hold anticoagulation Palliative care consulted for GOC, appreciate input #DMII with peripheral vascular disease: Hgb A1c 5.7% 1mo ago, SSI protocol while admitted with BSG checks ACHS. #ASCVD: Continue ASA, statin therapy. #COPD: Continue home inhalers #Infrarenal abdominal aortic aneurysm Appears stable on CTAP today, measuring 3.3cm. Recommend CTAP or MR imaging follow-up in 3yr as per ACR White Paper guidelines. #HTN: Hold lisinopril for now given hypotension and ANDRES, resume as able/tolerated. #GERD: Continue PPI BID. #BPH: Continue Flomax. #Hypocalcemia: Check vit D level, continue to monitor. DVT Prophylaxis: SCDs/TEDs only for now in light of thrombocytopenia Code Status: FULL CODE I spent a total of 53 minutes coordinating, documenting, and providing care for this patient excluding time spent in the performance of separately billed services. 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 N/V/D x 3 days. Poor oral intake with this. Denies any bleeding concerns. Has been taking medications as prescribed. Some SOB as well. Denies any chest pain. No reported abdominal pain. No fevers. Most recent chemotherapy session last week. Follows with Dr. Everett of [facility] oncology. Discharge Exam Vitals and labs reviewed General: chronically ill appearing NAD HEENT: EOMI, PERRLA R IJ Neck: Supple Cardiac: RRR Lungs: Decreased bs bilaterally. faint bibasilar rales. no rhonchi or wheez. no distress Abd: S NT ND BS positive : connelly MSK: Full ROM. No obvious deformities Ext: No Edema cyanosis Skin: Warm, Dry Neuro: AOx3 No focal deficits. Psych: Normal Mood Updated Medication List Medication Instructions Recorded Confirmed Type atorvastatin 80 mg tablet 80 mg PO DAILY 04/22/20 09/24/25 History cholecalciferol (vitamin D3) 25 1,000 unit PO QAM 04/22/20 09/24/25 History mcg (1,000 unit) capsule (Vitamin D3) epinephrine 0.3 mg/0.3 mL 0.3 mg IM DIRECTED PRN Allergic 04/22/20 09/24/25 History injection, auto-injector Reaction nitroglycerin 0.4 mg sublingual 0.4 mg sublingual DIRECTED PRN 04/22/20 09/24/25 History tablet (Nitrostat) Chest Pain tamsulosin 0.4 mg capsule 0.4 mg PO QAM 04/22/20 09/24/25 History lisinopril 2.5 mg tablet 2.5 mg PO QAM 02/03/23 09/24/25 History albuterol sulfate 90 mcg/actuation 2 inh inhalation Q4H PRN shortness 05/18/25 09/24/25 History aerosol inhaler of breath or wheezing budesonide 160 mcg-glycopyr 9 2 inh inhalation BID 05/18/25 09/24/25 History mcg-formot 4.8 mcg/actuation HFA inhaler (Breztri Aerosphere) folic acid 1 mg tablet 1 mg PO QAM 05/18/25 09/24/25 History prochlorperazine maleate 10 mg 10 mg PO Q6H PRN Nausea And 05/18/25 09/24/25 History tablet Vomiting trazodone 50 mg tablet 50 mg PO HS 05/18/25 09/24/25 History pantoprazole 40 mg tablet,delayed 40 mg PO BID #60 tabs 05/21/25 09/24/25 Rx release B-complex with vitamin C 1 cap PO QAM 06/21/25 09/24/25 History aspirin 81 mg tablet,delayed 81 mg PO QAM 06/21/25 09/24/25 History release dexamethasone 4 mg tablet 8 mg PO DIRECTED PRN DAYS 2,3,4 06/21/25 09/24/25 History OF CHEMO lidocaine-prilocaine 2.5 %-2.5 % 1 applic topical DIRECTED PRN 06/21/25 09/24/25 History topical cream ACCESSING MEDIPORT loperamide 1 mg/7.5 mL oral liquid 0.5 mg PO DAILY PRN Diarrhea 06/21/25 09/24/25 History (Imodium A-D) loratadine 10 mg tablet (Claritin) 10 mg PO DAILY PRN START DAY OF 06/21/25 09/24/25 History CHEMO X 5 DAYS. metoprolol succinate 50 mg 50 mg PO BID 06/21/25 09/24/25 History tablet,extended release 24 hr ondansetron HCl 8 mg tablet 8 mg PO Q8H PRN NAUSEA/VOMITING 06/21/25 09/24/25 History oxycodone 5 mg tablet 5 mg PO Q4H PRN pain #10 tabs 06/23/25 09/24/25 Rx L.acidop,casei,lactis,rham-B.lact,zac 1 cap PO QAM 08/15/25 09/24/25 History 625 mg (10 billion cell) capsule (Advanced Probiotic) amiodarone 200 mg tablet 200 mg PO BIDM 30 days #60 tabs 10/02/25 Rx midodrine 2.5 mg tablet 2.5 mg PO TID@0800,1200,1700 30 10/02/25 Rx days #90 tabs Hospital Stay Data Consultations 09/24/25 17:43 ED Decision to Admit Stat 09/24/25 17:44 Consult Cardiology Routine 09/24/25 18:45 Consult General Surgery Routine 09/25/25 04:30 Consult Church Supervisor Routine 09/28/25 15:10 Consult Palliative Care Routine 09/28/25 17:53 Consult Church Supervisor Routine 10/01/25 01:40 Consult Church Supervisor Routine Diagnostic Imagining Performed 09/24/25 15:29 CT abd pelvis wo con Stat Pending Results Patient Have Any Pending Studies at Discharge: No Discharge Instructions Given to Patient (Per Discharging Provider) Please take all your medications as prescribed. Your hospice team will also be able to assist you. Please follow up with your oncologgy team and cardiogist Total Time Total Time Spent Total Time Spent (In Minutes): 53
[2025-10-02 11:33] VITALS: BP 128/54; PULSE 56
[2025-10-02] MEDS: MIDODRINE HCL 2.5 MG TAB PO SCH (12:08)
[2025-10-02] MEDS ORDERED: AMIODARONE 200 MG TAB PO SCH (17:00)
== END 2025-10-02 12:17 | disposition hospice, home (50) | DRG 871 ==
LOC: ED 14:34 → SUATTDRO 18:24 → 2S 18:24 → 1E 09-25 04:25 → 2E 09-28 15:38 → 1E 09-28 17:51 → 2S 09-30 23:39 → 1E 10-01 01:34